=== PATIENT | female | born 1945 | race Caucasian/White ===

== ENCOUNTER → 2017-06-19 | Outpatient (CLI) | payer OTHER ==
[~2017-06-19] MED LIST: ADVIN25/60 INH; ASCO100061 PO; ATV/1 PO; CALC600T14 PO; CYAN100T6 PO; FISHOIL PO; MONT1TAB5 PO; MULTTAB58 PO; OMEP40CA41 PO; OXYC1TAB3 PO; SERT100T PO; TIOTCAP INH; TRAZ50TA35 PO; WLLSR/150 PO; ZCRT/40 PO
== END | disposition home or self-care (01) ==
LOC: C.PATHSPEC 14:16
PROVIDERS: ATTEND Dentist Oral and Maxillofacial Surgery
DX: M86.9 Osteomyelitis, unspecified (principal); M87.9 Osteonecrosis, unspecified

== ENCOUNTER 2018-11-28 14:50 | Inpatient (IN) ==
[2018-11-28] MEDS ORDERED: ALBUT/IPRATROP 3MG/0.5MG NEB 3 ML VIAL NEB STA ×3 (16:15→17:58)
[2018-11-28] MEDS ORDERED: methylPREDNISolone 125 MG/2 ML VIAL IV STA (16:15)
[2018-11-28] MEDS: SODIUM CHLORIDE 0.9% 500 ML IV SCH ×2 (16:33→20:34)
[2018-11-28 16:36] LABS: Base Excess VBG 5.4 mEq/L; HCO3 VBG 33 mmol/L; PCO2 VBG 60 mmHg (38-50); PO2 VBG 24 mmHg; pH VBG 7.35 (7.36-7.41)
[2018-11-28 16:38] LABS: Oxygen Saturation VBG < 60.0 %
[2018-11-28 16:41] LABS: Basophils # (auto) 0.02 K/uL (0-0.2); Basophils % (auto) 0.2 %; Eosinophils # (auto) 0.01 K/uL (0-0.5); Eosinophils % (auto) 0.1 %; Hematocrit (blood only) 37.2 % (37-47); Hemoglobin 12.4 g/dL (12.0-16.0); Immature Granulocytes # (auto) 0.01 K/uL (0.00-0.02); Immature Granulocytes % (auto) 0.1 %; Lymphocytes # (auto) 1.31 K/uL (1.2-3.4); Mean Corpuscular Hgb Conc 33.3 g/dL (32-36); Mean Corpuscular Volume 95.4 fL (80-100); Mean Platelet Volume 8.4 fL (7.4-10.4); Monocytes # (auto) 0.55 K/uL (0.11-0.59); Monocytes % (auto) 6.3 %; Neutrophils # (auto) 6.81 K/uL (1.4-6.5); Neutrophils % (auto) 78.3 %; Platelet Count 192 K/uL (130-400); RDW Coefficient of Variation 12.7 % (11.5-14.5); White Blood Count 8.71 K/uL (4.8-10.8)
--- NOTE | 2018-11-28 16:42 | XRay Report ---
XR chest 1V portable CLINICAL HISTORY: 73 years-old Female presenting with sob. TECHNIQUE: Portable upright AP view of the chest was obtained. COMPARISON: 01/28/[address] from 10/16/2012. FINDINGS: Atherosclerosis of the aortic arch. Cardiac silhouette normal in size. Lungs are hyperinflated. Heter ogeneity of lung parenchyma. Nodularity at the right lung base more prominent than on prior exam. No large effusion or pneumothorax. Degenerative changes of the thoracic spine. IMPRESSION: 1. Findings suggest emphysema. Scarring suggested at the right lung base. No other focal infiltrate to suggest pneumonia. Electronically signed by: Lazaro Mendieta M.D. 11/28/2018 4:40 PM
[2018-11-28 16:54] LABS: Partial Thromboplastin Ratio 0.9; Partial Thromboplastin Time 24.7 Seconds (21.0-31.0); Prothrombin Time 10.5 Seconds (9.0-12.0)
[2018-11-28 16:56] LABS: D Dimer 610 ug/L FEU (0-500)
[2018-11-28 16:57] LABS: BUN Creatinine Ratio 12.8 (10-20); Blood Urea Nitrogen 10 mg/dl (7-18); Calcium 8.8 mg/dl (8.5-10.1); Carbon Dioxide 31 mmol/L (21-32); Chloride 101 mmol/L (98-107); Creatinine Clr Calc Pharmacy 49.1 ml/min; Est GFR (African American) 88.8; Est GFR (Non-African American) 76.6; Glucose 105 mg/dl (70-99); Sodium 138 mmol/L (136-145)
[2018-11-28 17:01] LABS: NT Pro B Type Natriuretic Pept 91 pg/ml (0-900); Troponin I < 0.015 ng/ml (0-0.045)
[2018-11-28 17:09] LABS: Influenza A virus by PCR Neg for Influ A (Neg); Influenza B virus by PCR Neg for Influ B (Neg)
[2018-11-28] MEDS ORDERED: OPTIRAY 320 125ml IV PRN (17:15)
--- NOTE | 2018-11-28 17:32 | CT Scan Report ---
CT angio chest PE protocol CLINICAL HISTORY: 73 years-old Female presenting with shortness of breath and cough. TECHNIQUE: Multidetector CT angiography of the chest was performed after administration of intravenou s contrast. 3-D volumetric and/or maximum intensity projection (MIP) images were subsequently reconst ructed for review. IV contrast: 96 mL of Optiray 320. One or more dose lowering techniques were used consistent with the principles of ALARA (as low as reasonably achievable), including automatic exposu re control, mA or kV adjustment to individual patient size, and/or use of iterative reconstruction. COMPARISON: 10/16/2012. CT DOSE (mGy.cm): The estimated cumulative dose is 183.43 mGy.cm. FINDINGS: Gang Supervisor topogram: Hyperinflation. Pulmonary vasculature: The study is adequate for assessment of the pulmonary vascular tree. No filling defect within the pul monary arteries to suggest embolus. Main pulmonary artery is not enlarged. No flattening of the inter ventricular septum. No intracardiac filling defect. No reflux of contrast into the hepatic veins. Remaining chest: Soft tissues: Normal thyroid and thoracic inlet. Small bilateral hilar lymph nodes, likely reactive. The esophagus is dilated with gas. Atherosclerosis of the aorta. Mild stenosis of the origin of the m ajor branch vessels suggested, especially the left common carotid artery. Normal heart size. Coronary artery calcification. No pericardial or pleural effusion. Upper abdomen normal. Lungs and airways: No pneumothorax. Diffuse bronchial wall thickening with subsegmental bronchial yusef ris primarily in the lower lobes. Upper lobe predominant moderate centrilobular emphysema. Bandlike o pacities in the lungs with associated architectural distortion likely scarring. Respiratory motion ar tifact mildly degrades evaluation of the lung parenchyma. Pulmonary arteries are not significantly en larged relative to adjacent bronchi. No interlobular septal thickening. Solid 7 mm nodule at the supe rior segment of the right lower lobe (series 4 image 183), new since 2012. Tree-in-bud opacities note d in the dependent portions of the right lower lobe and to a lesser extent in the left lower lobe lik silver on an inflammatory or infectious basis. Solid 4 mm left apical nodule (series 4 image 231). Musculoskeletal: Degenerative changes of the spine. Compression deformity of T12 new since 2012. Scle rosis of this vertebral body and the inferior endplate deformity suggests chronicity. IMPRESSION: 1. Multiple solid pulmonary nodules measuring up to 7 mm. Follow-up per Fleischner Society 2017 mara mmendations below. 2. Emphysema. 3. Superimposed tree-in-bud opacities primarily in the lower lobes, which may be on an infectious or inflammatory basis. 4. Compression fracture of T12 new since 2012. Correlate with point tenderness. This is likely chron ic. Summary of Fleischner Society 2017 Recommendations (H Rosa, et al. Guidelines for management of i ncidental pulmonary nodules detected on CT images: From the Fleischner Society 2017. Radiology 2017; 284: 228-243.) SOLID NODULES Single nodule; size < 6 mm * Low risk patients: No routine follow-up * High risk patients: Optional CT at 12 months Single nodule; size 6-8 mm * Low risk patients: CT at 6-12 months, then consider CT at 18-24 months * High risk patients: CT at 6-12 months, then at 18-24 months Single nodule; size > 8 mm * Either low or high risk patients: Considered CT at 3 months, PET/CT, or tissue sampling Multiple nodules; size < 6 mm * Low risk patients: No routine follow up * High risk patients: Optional CT at 12 months Multiple nodules; size 6-8 mm * Low risk patients: CT at 3-6 months, then consider CT at 18-24 months * High risk patients: CT at 3-6 months, then at 18-24 months Multiple nodules; size > 8 mm * Low risk patients: CT at 3-6 months, then consider at 18-24 months * High risk patients: CT at 3-6 months, then at 18-24 months SUBSOLID NODULES Single ground-glass nodule * Nodule size < 6 mm: No routine follow-up * Nodule size > or = 6 mm: CT at 6-12 months to confirm persistence, then CT every 2 years until 5 y ears Single part-solid nodule * Nodule size < 6 mm: No routine follow-up * Nodules size > or = 6 mm: CT at 3-6 months to confirm persistence. If unchanged and solid componen t remains < 6 mm, annual CT should be performed for 5 years Multiple nodules * Nodule size < 6 mm: CT at 3-6 months. If stable, consider CT at 2 and 4 years. * Nodules size > or = 6 mm: CT at 3-6 months. Subsequent management based on the most suspicious nod ule(s) NOTE: 1) These guidelines apply to incidental nodules. These guidelines do NOT apply to patients younger th an 35 years, immunocompromised patients, or patients with cancer. 2) Risk categories: * Low risk patients: Minimal or absent history of smoking and/or other known risk factors * High risk patients: History of smoking, exposure to other carcinogens, emphysema, fibrosis, upper lobe location, family history of lung cancer, etc. 3) If a nodule up to 8 mm is partly solid or is ground glass, further follow-up is required after 24 months to exclude possible slow growing adenocarcinoma. Electronically signed by: Lazaro Mendieta M.D. 11/28/2018 5:31 PM
[2018-11-28] MEDS ORDERED: AZITHROMYCIN 250 MG TAB PO ONE (18:06)
--- NOTE | 2018-11-28 18:48 | History & Physical Report ---
Date of Service November 28, 2018 Assessment & Plan (1) Pneumonia: Poss 2/2 friend who was ill vs recent trip to [place]. Sputum culture requested. (2) COPD exacerbation: IV solumedrol, scheduled nebulizer treatments, Levaquin. Cont oxygen sup plementation for goal saturation 88-92%. Continuous pulse ox for at least 24 hours ordered. (3) Hypoxia: Uses 2 L at night at baseline. Currently requiring 3 L round the clock for the past 3 days. Pulse ox at bedside for first 24 hours. Should not be 100% saturation--goal is 88-92% (4) Smoker: Per recent pulmonary note patient has not been smoking. Continue to encourage to stay quit. (5) Depression: Stable, continue home medications. (6) Chronic constipation: Continue home medications. (7) DVT prophylaxis: Lovenox Full code Disposition-continue telemetry monitoring Qian Lazar DO [facility] Hospitalist History of Present Illness Primary Care Provider: Kenzie Feliciano MD Patient is a 73-year-old female with known history of COPD on nocturnal oxygen who presents with 4 days of cough and worsening shortness of breath. She reports going to [place] for 5 weeks and recently drove home within the last week with her friend who became ill with a febrile respiratory illness at the end of the trip. Within the next couple of days the patient developed the similar symptoms. She reports a cough productive of greenish sputum, 1 day of fever and sweating which has passed. Some sinus pressure and ear pressure with generalized weakness which also had past. She does report wheezing. She states that she was feeling better but then had a exposure outside in the cold while trying to lift a friend from the snow who had fallen. She takes azithromycin 3 times a day for COPD. She uses duo nebs at home 1-2 times daily, she is also on Advair 50/500 twice daily, Singulair 10, as needed Mucinex D. She is seen at pulmonology at [facility]. She reports multiple respiratory infections over this last winter and had several courses of steroids. She currently has no conversational dyspnea on 3 L nasal cannula. She is no acute respiratory distress at this time. Allergies Allergy/AdvReac Type Severity Reaction Status Date / Time No Known Allergies Allergy Unverified 11/28/18 20:15 Home Medications Home Medications Medication Instructions Recorded Confirmed Type Multiple Vitamin, Womens 1 tab PO DAILY 11/28/18 11/28/18 History albuterol sulfate [Ventolin HFA] 2 puff INHALATION Q4H PRN 11/28/18 11/28/18 History ascorbic acid (vitamin C) 1,000 mg PO DAILY 11/28/18 11/28/18 History aspirin [Aspir-81] 81 mg PO Q2D 11/28/18 11/28/18 History azithromycin 250 mg PO UD 11/28/18 11/28/18 History bupropion HCl 100 mg PO QAM 11/28/18 11/28/18 History buspirone 5 mg PO DAILY 11/28/18 11/28/18 History calcium carbonate [Calcium 500] 500 mg PO TID 11/28/18 11/28/18 History cetirizine 10 mg PO DAILY PRN 11/28/18 11/28/18 History cyanocobalamin (vitamin B-12) 1,000 mcg PO DAILY 11/28/18 11/28/18 History fluticasone 2 spry INTRANASAL DAILY 11/28/18 11/28/18 History fluticasone-salmeterol [Advair 1 inh INHALATION BID 11/28/18 11/28/18 History Diskus] ipratropium-albuterol 3 ml INHALATION QID PRN 11/28/18 11/28/18 History linaclotide [Linzess] 72 mg PO QAM 11/28/18 11/28/18 History montelukast 10 mg PO DAILY 11/28/18 11/28/18 History pantoprazole 40 mg PO QAM 11/28/18 11/28/18 History polyethylene glycol 3350 [Miralax] 17 g PO DAILY 11/28/18 11/28/18 History rosuvastatin 20 mg PO DAILY 11/28/18 11/28/18 History sennosides [senna] 17.2 mg PO BID 11/28/18 11/28/18 History tamsulosin 0.4 mg PO QPM 11/28/18 11/28/18 History tiotropium bromide [Spiriva with 1 cap INHALATION DAILY 11/28/18 11/28/18 History HandiHaler] trazodone 25 - 50 mg PO HS PRN 11/28/18 11/28/18 History venlafaxine 150 mg PO DAILY 11/28/18 11/28/18 History Past Med/Surg History Medical History Asthma COPD (chronic obstructive pulmonary disease) KURTIS (generalized anxiety disorder) H/O compression fracture of spine 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, jaw Osteoporosis Recurrent major depression Slow transit constipation Smoker Family History Other Family history non-contributory Social History Preferred Language: [place] Communication Ability: Effective Music Journalist Required: No Beliefs That Will Affect Care: None Current Living Situation: Other Other Information That Helps Us Care for You: No Feels Safe at Home: Yes and No Safety Concerns: Feels Safe At This Time Smoking Status: Current some day smoker Hx Alcohol Use: Yes Hx Substance Use: No Review of Systems At least ten systems were reviewed and negative except as indicated in HPI a robert. Physical Exam Vital Signs (Past 24 Hours): Last Vital Signs Temp 37.4 C 11/28/18 15:11 Pulse 105 H 11/28/18 18:10 Resp 20 11/28/18 18:10 BP 187/99 H 11/28/18 17:56 Pulse Ox 96 11/28/18 18:10 CONSTITUTIONAL: WNWD, vitals as above, generally well-appearing EYES: PERRL, normal conjuctivae, no scleral icterus ENT: oropharynx clear, no maxillary or ethmoid sinus tenderness, tongue clear NECK: trachea midline, no lymphadenopathy RESPIRATORY: significant wheezing throughout all lung heredia. Coarse rhonchi superimposed diffusely CARDIOVASCULAR: regular rate and rhythm, S1 and 2 heard without murmurs, gallops or rubs, no JVD, no peripheral edema GASTROINTESTINAL: normal bowel sounds, soft, nontender, nondistended MUSCULOSKELETAL: strength 5/5 throughout, head is normocephalic and atraumatic SKIN: warm and dry NEUROLOGIC: CN 2-12 grossly intact, normal cognition, normal speech PSYCHIATRIC: alert cooperative and oriented to person, place and time. Results & Data Laboratory Results Short CBC 11/28/18 Range/Units 16:28 WBC 8.71 (4.8-10.8) K/uL Hgb 12.4 (12.0-16.0) g/dL Hct 37.2 (37-47) % Plt Count 192 (130-400) K/uL BMP 11/28/18 16:28 Sodium 138 Potassium 4.0 Chloride 101 Carbon Dioxide 31 BUN 10 Creatinine 0.77 Glucose 105 H Calcium 8.8 Cardiac Enzymes 11/28/18 Range/Units 16:28 Troponin I < 0.015 (0-0.045) ng/ml Medications Administered Current Inpatient Medications Acetaminophen (Tylenol) 650 mg PO Q4H PRN PRN Reason: Pain or Fever Stop: 12/28/18 19:41 Sodium Chloride (Nss) 500 mls @ 125 mls/hr IV .Q4H MARIMAR Stop: 12/28/18 16:14 Last Admin: 11/28/18 16:33 Dose: 125 mls/hr Documented by: Ioversol (Optiray 320 125ml) 117 ml IV ONCE PRN PRN Reason: Interaction Checking Stop: 12/02/18 17:14 Last Admin: 11/28/18 17:15 Dose: 117 ml Documented by: Polyethylene Glycol (Miralax Powder Packet) 17 gm PO DAILY PRN PRN Reason: Constipation Stop: 12/28/18 19:41 Code Status & VTE Plan Code Status Full Code VTE Prophylaxis Plan VTE Prophylaxis will be ordered: Yes Critical Care Time Critical Care Time: No
[2018-11-28] MEDS ORDERED: ACETAMINOPHEN 325 MG TAB PO PRN (19:42)
[2018-11-28] MEDS ORDERED: POLYETHYLENE (MIRALAX) 17 GM PACK PO PRN (19:42)
[2018-11-28] MEDS ORDERED: CALCIUM CARBONATE 1250MG TAB PO SCH (21:00)
[2018-11-28] MEDS: LEVOFLOXACIN/D5W 750 MG/150 ML BAG IV SCH (22:07)
[2018-11-28] MEDS: methylPREDNISolone 40 MG in SYRINGE 0 ML IV SCH (22:11)
[2018-11-28] MEDS: SENNA 8.6 MG TAB PO SCH (22:12)
[2018-11-28] MEDS: TAMSULOSIN HCL 0.4 MG CAP PO SCH (22:12)
[2018-11-28] MEDS: CALCIUM CARBONATE 1250MG TAB PO SCH (22:13)
[2018-11-28] MEDS: ASPIRIN 81 MG ECTAB PO SCH (22:13)
--- NOTE | 2018-11-28 22:39 | Emergency Department Note ---
Entered by Agusto Zhu acting as a scribe for Dmitriy Paulson History of Present Illness General Chief complaint: Shortness of Breath/Dyspnea Stated complaint: SOB, NEEDS O2 Time Seen by Provider: 11/28/18 16:05 Source: patient History of Present Illness Onset (ago): day(s) 3 Location: chest (lungs) Pain Consistency: + other (persistent) Quality: + other (shortness of breath) Associated symptoms: + chest pain, + cough and + loss of appetite; no nausea/vomiting The patient is a 73 year old female with a history of COPD and asthma and COPD who presents to the Emergency Room with complaints of persistent shortness of breath worsening in the past three days. The patient reports a cough that is productive of mucous. She notes occasionally seeing a small amount of pink that is not mixed with the mucous. She reports occasional chest pain and loss of appetite. She denies nausea, vomiting, diarrhea, or blood in her stool. She states that she chronically wears supplemental oxygen at night, and in the past three days she has also been wearing it in the daytime due to her increasing shortness of breath. She notes that she has been taking her inhalers. She reports that she recently drove home from [place] with a friend, noting that her friend had developed fevers and a cough. She denies a history of intubation or ICU visits for her shortness of breath. She also denies a history of kidney problems. She notes that her PCP is Dr. Braden Hernandez. Home Medications Home Medications Medication Instructions Recorded Confirmed Type Multiple Vitamin, Womens 1 tab PO DAILY 11/28/18 11/28/18 History albuterol sulfate [Ventolin HFA] 2 puff INHALATION Q4H PRN 11/28/18 11/28/18 History ascorbic acid (vitamin C) 1,000 mg PO DAILY 11/28/18 11/28/18 History aspirin [Aspir-81] 81 mg PO Q2D 11/28/18 11/28/18 History azithromycin 250 mg PO UD 11/28/18 11/28/18 History bupropion HCl 100 mg PO QAM 11/28/18 11/28/18 History buspirone 5 mg PO DAILY 11/28/18 11/28/18 History calcium carbonate [Calcium 500] 500 mg PO TID 11/28/18 11/28/18 History cetirizine 10 mg PO DAILY PRN 11/28/18 11/28/18 History cyanocobalamin (vitamin B-12) 1,000 mcg PO DAILY 11/28/18 11/28/18 History fluticasone 2 spry INTRANASAL DAILY 11/28/18 11/28/18 History fluticasone-salmeterol [Advair 1 inh INHALATION BID 11/28/18 11/28/18 History Diskus] ipratropium-albuterol 3 ml INHALATION QID PRN 11/28/18 11/28/18 History linaclotide [Linzess] 72 mg PO QAM 11/28/18 11/28/18 History montelukast 10 mg PO DAILY 11/28/18 11/28/18 History pantoprazole 40 mg PO QAM 11/28/18 11/28/18 History polyethylene glycol 3350 [Miralax] 17 g PO DAILY 11/28/18 11/28/18 History rosuvastatin 20 mg PO DAILY 11/28/18 11/28/18 History sennosides [senna] 17.2 mg PO BID 11/28/18 11/28/18 History tamsulosin 0.4 mg PO QPM 11/28/18 11/28/18 History tiotropium bromide [Spiriva with 1 cap INHALATION DAILY 11/28/18 11/28/18 Histo ry HandiHaler] trazodone 25 - 50 mg PO HS PRN 11/28/18 11/28/18 History venlafaxine 150 mg PO DAILY 11/28/18 11/28/18 History Allergies Allergy/AdvReac Type Severity Reaction Status Date / Time No Known Allergies Allergy Unverified 11/28/18 20:15 Past Med/Surg History Medical History Asthma COPD (chronic obstructive pulmonary disease) KURTIS (generalized anxiety disorder) H/O compression fracture of spine 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 and A total of 10 systems reviewed and were otherwise negative Physical Exam Vital Signs Vital Signs - 24 hr 11/28/18 15:11 11/28/18 15:17 11/28/18 16:12 Temperature 37.4 C Temperature Source Oral Sepsis Recent Fever Within 48 Hours No Sepsis New/Unexplained Change in Mental Status No Sepsis Action Taken by Nursing No Action Required Pulse Rate 125 H 105 H Pulse Rate [Apical] Pulse Rate from SpO2 Sensor 105 H Respiratory Rate 20 17 Respiratory Effort / Characteristics Non-Labored Spontaneous Respiratory Depth Normal Respiratory Pattern Blood Pressure 160/69 H Blood Pressure [Left Arm] Blood Pressure Mean 99 Blood Pressure Mean [Left Arm] Blood Pressure Position Sitting Blood Pressure Position [Left Arm] Pulse Oximetry 92 98 Oxygen Delivery Method Room Air Nasal Cannula Oxygen Flow Rate 2 11/28/18 16:18 11/28/18 16:20 11/28/18 16:30 Temperature Temperature Source Sepsis Recent Fever Within 48 Hours Sepsis New/Unexplained Change in Mental Status Sepsis Action Taken by Nursing Pulse Rate 103 H 136 H 105 H Pulse Rate [Apical] Pulse Rate from SpO2 Sensor 102 H 110 H Respiratory Rate 19 20 29 H Respiratory Effort / Characteristics Respiratory Depth Respiratory Pattern Blood Pressure Blood Pressure [Left Arm] 160/69 H Blood Pressure Mean Blood Pressure Mean [Left Arm] 99 Blood Pressure Position Blood Pressure Position [Left Arm] Left Lateral Pulse Oximetry 99 98 Oxygen Delivery Method Oxygen Flow Rate 11/28/18 16:40 11/28/18 16:50 11/28/18 17:00 Temperature Temperature Source Sepsis Recent Fever Within 48 Hours Sepsis New/Unexplained Change in Mental Status Sepsis Action Taken by Nursing Pulse Rate 103 H 100 H 100 H Pulse Rate [Apical] Pulse Rate from SpO2 Sensor Respiratory Rate 24 18 22 Respiratory Effort / Characteristics Respiratory Depth Respiratory Pattern Blood Pressure Blood Pressure [Left Arm] Blood Pressure Mean Blood Pressure Mean [Left Arm] Blood Pressure Position Blood Pressure Position [Left Arm] Pulse Oximetry Oxygen Delivery Method Oxygen Flow Rate 11/28/18 17:43 11/28/18 17:50 11/28/18 17:56 Temperature Temperature Source Sepsis Recent Fever Within 48 Hours Sepsis New/Unexplained Change in Mental Status Sepsis Action Taken by Nursing Pulse Rate 114 H Pulse Rate [Apical] Pulse Rate from SpO2 Sensor 105 H 105 H 113 H Respiratory Rate 22 Respiratory Effort / Characteristics Respiratory Depth Respiratory Pattern Blood Pressure 187/99 H Blood Pressure [Left Arm] Blood Pressure Mean 128 Blood Pressure Mean [Left Arm] Blood Pressure Position Blood Pressure Position [Left Arm] Pulse Oximetry 94 100 96 Oxygen Delivery Method Oxygen Flow Rate 11/28/18 17:58 11/28/18 17:59 11/28/18 18:00 Temperature Temperature Source Sepsis Recent Fever Within 48 Hours Sepsis New/Unexplained Change in Mental Status Sepsis Action Taken by Nursing Pulse Rate 107 H Pulse Rate [Apical] Pulse Rate from SpO2 Sensor 107 H Respiratory Rate 26 H Respiratory Effort / Characteristics Respiratory Depth Respiratory Pattern Blood Pressure Blood Pressure [Left Arm] Blood Pressure Mean Blood Pressure Mean [Left Arm] Blood Pressure Position Blood Pressure Position [Left Arm] Pulse Oximetry 78 L 92 97 Oxygen Delivery Method Room Air Nasal Cannula Oxygen Flow Rate 3 11/28/18 18:10 11/28/18 18:20 11/28/18 18:30 Temperature Temperature Source Sepsis Recent Fever Within 48 Hours Sepsis New/Unexplained Change in Mental Status Sepsis Action Taken by Nursing Pulse Rate 105 H 105 H 106 H Pulse Rate [Apical] Pulse Rate from SpO2 Sensor 105 H 105 H 106 H Respiratory Rate 20 22 21 Respiratory Effort / Characteristics Respiratory Depth Respiratory Pattern Blood Pressure Blood Pressure [Left Arm] Blood Pressure Mean Blood Pressure Mean [Left Arm] Blood Pressure Position Blood Pressure Position [Left Arm] Pulse Oximetry 96 100 98 Oxygen Delivery Method Oxygen Flow Rate 11/28/18 18:40 11/28/18 18:50 11/28/18 19:00 Temperature Temperature Source Sepsis Recent Fever Within 48 Hours Sepsis New/Unexplained Change in Mental Status Sepsis Action Taken by Nursing Pulse Rate 105 H 104 H 104 H Pulse Rate [Apical] Pulse Rate from SpO2 Sensor 105 H 104 H 105 H Respiratory Rate 26 H 17 20 Respiratory Effort / Characteristics Respiratory Depth Respiratory Pattern Blood Pressure Blood Pressure [Left Arm] Blood Pressure Mean Blood Pressure Mean [Left Arm] Blood Pressure Position Blood Pressure Position [Left Arm] Pulse Oximetry 97 97 96 Oxygen Delivery Method Oxygen Flow Rate 11/28/18 19:30 11/28/18 20:12 11/28/18 20:37 Temperature 37.5 C Temperature Source Oral Sepsis Recent Fever Within 48 Hours Sepsis New/Unexplained Change in Mental Status Sepsis Action Taken by Nursing Pulse Rate 113 H Pulse Rate [Apical] 113 H Pulse Rate from SpO2 Sensor Respiratory Rate 24 Respiratory Effort / Characteristics Non-Labored Spontaneous SOB on Exertion Respiratory Depth Normal Respiratory Pattern Regular Regular Blood Pressure Blood Pressure [Left Arm] 147/63 H Blood Pressure Mean Blood Pressure Mean [Left Arm] 91 Blood Pressure Position Blood Pressure Position [Left Arm] Pulse Oximetry 94 Oxygen Delivery Method Nasal Cannula Nasal Cannula Oxygen Flow Rate 3 3 GENERAL: She is oriented to person, place, and time. She appears well-developed and well-nourished. She does not appear distressed. HENT: Exam performed. Head: Normocephalic and atraumatic. Right Ear: External ear normal. No mastoid tenderness. Left Ear: External ear normal. No mastoid tenderness. Mouth/Throat: The oropharynx is clear. Mucous membranes are dry. No trismus in the jaw. No dental abscesses or uvula swelling. No oropharyngeal exudate or tonsillar abscesses. EYES: Conjunctivae and EOM are normal. Pupils are equal, round, and reactive to light. Right eye exhibits no discharge. Left eye exhibits no discharge. No scleral icterus. NECK: Normal range of motion. Neck supple. No JVD present. No spinous process tenderness present. No carotid bruit present. No rigidity. No tracheal deviation and normal range of motion present. No Brudzinski's sign and no Kernig's sign noted. CV: Tachycardic rate, regular rhythm, normal heart sounds and intact distal pulses. There is no peripheral edema. Palpable radial pulses bue. PULM/CHEST: Effort normal. No respiratory distress. No stridor. She has diffuse expiratory wheezes bilaterally. She has no rales. Chest Wall: She exhibits no tenderness. ABD: The abdomen is soft. Bowel sounds are normal. She has no distension. No mass is present. There is no tenderness. There is no rebound, no guarding, no Salinas's sign and no tenderness at McBurney's point. Rovsig negative. MUSC/SKEL: Normal range of motion. There is no peripheral edema, tenderness or deformity. LYMPH: No cervical adenopathy. NEURO: She is alert and oriented to person, place, and time. She has normal strength. No cranial nerve deficit or sensory deficit. Coordination and gait normal. GCS eye subscore is 4. GCS verbal subscore is 5. GCS motor subscore is 6. cerbellar tests wnl. SKIN: Skin is warm and dry. She is not diaphoretic. PSYCH: She has a normal mood and affect. Her behavior is normal. Judgment and thought content normal. Course 1606: Past medical records reviewed. The patient was evaluated in room C9, and a complete history and physical examination were performed. 1809: The patient got up to use the restroom and became extremely winded with wheezing. Despite repeated Duoneb treatments, she continues to wheeze. Labs show venous pH of 7.35, pCO2 of 60, elevated D-dimer, and CTA of the chest negative for PE. She states that she frequently gets infections that require antibiotics. She will be hospitalized for obstructive lung disease exacerbation and will be treated with serial duo nebs and azithromycin. 1811: I consulted Birgit Ruiz PA-C: [facility] Hospitalist with Dr. Lazar. The patient will be reevaluated for hospitalization. Consultations Consultation #1: I consulted Birgit Ruiz PA-C: [facility] Hospitalist with Dr. Lazar. The patient will be reevaluated for hospitalization. Time: 18:12 Administered Medications Aspirin (Ecotrin Ectab) 81 mg PO Q2D@2100 [facility] Stop: 12/28/18 20:59 Last Admin: 11/28/18 22:13 Dose: 81 mg Documented by: [id number] Calcium Carbonate (Os-Giuseppe 500) 1,250 mg PO TID [facility] Stop: 12/28/18 20:59 Last Admin: 11/28/18 22:13 Dose: 1,250 mg Documented by: [id number] Methylprednisolone 40 mg/ (Syringe) 0.64 mls @ 1.5 mls/min IV Q8H [facility] Stop: 12/28/18 21:59 Last Admin: 11/28/18 22:11 Dose: 1.5 mls/min Documented by: [id number] Levofloxacin/Dextrose (Levaquin/D5w) 750 mg in 150 mls @ 100 mls/hr IV Q24H [facility] Stop: 12/05/18 21:59 Last Admin: 11/28/18 22:07 Dose: 100 mls/hr Documented by: [id number] Ioversol (Optiray 320 125ml) 117 ml IV ONCE PRN PRN Reason: Interaction Checking Stop: 12/02/18 17:14 Last Admin: 11/28/18 17:15 Dose: 117 ml Documented by: [id number] Sennosides (Senokot) 17.2 mg PO BID [facility] Stop: 12/28/18 20:59 Last Admin: 11/28/18 22:12 Dose: 17.2 mg Documented by: [id number] Tamsulosin HCl (Flomax) 0.4 mg PO QPM [facility] Stop: 12/28/18 20:59 Last Admin: 11/28/18 22:12 Dose: 0.4 mg Documented by: [id number] Discontinued Medications Albuterol (Duoneb) 3 ml NEB NOW STA Stop: 11/28/18 16:16 Last Admin: 11/28/18 16:25 Dose: 3 ml Documented by: [id number] Albuterol (Duoneb) 3 ml NEB NOW STA Stop: 11/28/18 16:59 Last Admin: 11/28/18 17:03 Dose: 3 ml Documented by: [id number] Albuterol (Duoneb) 3 ml NEB NOW STA Stop: 11/28/18 17:59 Last Admin: 11/28/18 18:17 Dose: 3 ml Documented by: [id number] Azithromycin (Zithromax) 500 mg PO NOW ONE Stop: 11/28/18 18:07 Last Admin: 11/28/18 18:17 Dose: 500 mg Documented by: [id number] Calcium Carbonate (Os-Giuseppe 500) 500 mg PO TID [facility] Stop: 12/28/18 20:59 Last Admin: 11/28/18 22:02 Dose: Not Given Documented by: [id number] Sodium Chloride (Nss) 500 mls @ 125 mls/hr IV .Q4H [facility] Stop: 12/28/18 16:14 Last Admin: 11/28/18 20:34 Dose: Not Given Documented by: [id number] Infusion: 11/28/18 20:33 Dose: 0 mls/hr Documented by: [id number] Admin: 11/28/18 16:33 Dose: 125 mls/hr Documented by: [id number] Methylprednisolone (Solumedrol) 125 mg IV NOW STA Stop: 11/28/18 16:16 Last Admin: 11/28/18 16:33 Dose: 125 mg Documented by: [id number] Medical Decision Making Medical Records Attestation: I reviewed the patient's medical records. Home Medications Current Medication List: was personally reviewed by me Laboratory Data Attestation: I reviewed the patient's lab results. Result diagrams: 11/28/18 16:28 11/28/18 16:28 Lab Results 11/28/18 11/28/18 11/28/18 Range/Units 16:22 16:28 16:28 WBC 8.71 (4.8-10.8) K/uL RBC 3.90 L (4.2-5.4) M/uL Hgb 12.4 (12.0-16.0) g/dL Hct 37.2 (37-47) % MCV 95.4 (80-100) fL MCH 31.8 (25-34) pg MCHC 33.3 (32-36) g/dL RDW Std Deviation 44.0 (36.4-46.3) fL RDW Coeff of Yamini 12.7 (11.5-14.5) % Plt Count 192 (130-400) K/uL MPV 8.4 (7.4-10.4) fL Immature Gran % (Auto) 0.1 % Neut % (Auto) 78.3 % Lymph % (Auto) 15.0 % Delta % (Auto) 6.3 % Eos % (Auto) 0.1 % Baso % (Auto) 0.2 % Immature Gran # (Auto) 0.01 (0.00-0.02) K/uL Neut # (Auto) 6.81 H (1.4-6.5) K/uL Lymph # (Auto) 1.31 (1.2-3.4) K/uL Delta # (Auto) 0.55 (0.11-0.59) K/uL Eos # (Auto) 0.01 (0-0.5) K/uL Baso # (Auto) 0.02 (0-0.2) K/uL PT 10.5 (9.0-12.0) Seconds INR 1.0 (0.9-1.1) APTT 24.7 (21.0-31.0) Seconds PTT Ratio 0.9 D-Dimer 610 H* (0-500) ug/L FEU VBG pH (7.36-7.41) VBG pCO2 (38-50) mmHg VBG pO2 mmHg VBG HCO3 mmol/L VBG O2 Saturation % VBG Base Excess mEq/L Barometric Pressure mm/Hg Sodium (136-145) mmol/L Potassium (3.5-5.1) mmol/L Chloride (98-107) mmol/L Carbon Dioxide (21-32) mmol/L Anion Gap (3-11) BUN (7-18) mg/dl Creatinine (0.6-1.2) mg/dl Est Cr Clr Drug Dosing ml/min Est GFR ( Amer) Est GFR (Non-Af Amer) BUN/Creatinine Ratio (10-20) Glucose (70-99) mg/dl Calcium (8.5-10.1) mg/dl Troponin I (0-0.045) ng/ml NT-Pro-B Natriuret Pep (0-900) pg/ml Influenza Type A (PCR) Neg for Influ A (Neg) Influenza Type B (PCR) Neg for Influ B (Neg) 11/28/18 11/28/18 Range/Units 16:28 16:28 WBC (4.8-10.8) K/uL RBC (4.2-5.4) M/uL Hgb (12.0-16.0) g/dL Hct (37-47) % MCV (80-100) fL MCH (25-34) pg MCHC (32-36) g/dL RDW Std Deviation (36.4-46.3) fL RDW Coeff of Yamini (11.5-14.5) % Plt Count (130-400) K/uL MPV (7.4-10.4) fL Immature Gran % (Auto) % Neut % (Auto) % Lymph % (Auto) % Delta % (Auto) % Eos % (Auto) % Baso % (Auto) % Immature Gran # (Auto) (0.00-0.02) K/uL Neut # (Auto) (1.4-6.5) K/uL Lymph # (Auto) (1.2-3.4) K/uL Delta # (Auto) (0.11-0.59) K/uL Eos # (Auto) (0-0.5) K/uL Baso # (Auto) (0-0.2) K/uL PT (9.0-12.0) Seconds INR (0.9-1.1) APTT (21.0-31.0) Seconds PTT Ratio D-Dimer (0-500) ug/L FEU VBG pH 7.35 L (7.36-7.41) VBG pCO2 60 H (38-50) mmHg VBG pO2 24 mmHg VBG HCO3 33 mmol/L VBG O2 Saturation < 60.0 % VBG Base Excess 5.4 mEq/L Barometric Pressure 735.0 mm/Hg Sodium 138 (136-145) mmol/L Potassium 4.0 (3.5-5.1) mmol/L Chloride 101 (98-107) mmol/L Carbon Dioxide 31 (21-32) mmol/L Anion Gap 6.0 (3-11) BUN 10 (7-18) mg/dl Creatinine 0.77 (0.6-1.2) mg/dl Est Cr Clr Drug Dosing 49.1 ml/min Est GFR ( Amer) 88.8 Est GFR (Non-Af Amer) 76.6 BUN/Creatinine Ratio 12.8 (10-20) Glucose 105 H (70-99) mg/dl Calcium 8.8 (8.5-10.1) mg/dl Troponin I < 0.015 (0-0.045) ng/ml NT-Pro-B Natriuret Pep 91 (0-900) pg/ml Influenza Type A (PCR) (Neg) Influenza Type B (PCR) (Neg) Imaging Data Radiologist's Impression: Radiology results as stated below per my review and the radiologist's interpretation: CT angio chest PE protocol CLINICAL HISTORY: 73 years-old Female presenting with shortness of breath and cough. TECHNIQUE: Multidetector CT angiography of the chest was performed after admini stration of intravenous contrast. 3-D volumetric and/or maximum intensity projection (MIP) images were subsequently reconstructed for review. IV contrast: 96 mL of Optiray 320. One or more dose lowering techniques were used consistent with the principles of ALARA (as low as reasonably achievable), including automatic exposure control, mA or kV adjustment to individual patient size, and/or use of iterative reconstruction. COMPARISON: 10/16/2012. CT DOSE (mGy.cm): The estimated cumulative dose is 183.43 mGy.cm. 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 Pulmonary vasculature: The study is adequate for assessment of the pulmonary vascular tree. No filling defect within the pulmonary arteries to suggest embolus. Main pulmonary artery is not enlarged. No flattening of the interventricular septum. No intracardiac filling defect. No reflux of contrast into the hepatic veins. Remaining chest: Soft tissues: Normal thyroid and thoracic inlet. Small bilateral hilar lymph nodes, likely reactive. The esophagus is dilated with gas. Atherosclerosis of the aorta. Mild stenosis of the origin of the major branch vessels suggested, especially the left common carotid artery. Normal heart size. Coronary artery calcification. No pericardial or pleural effusion. Upper abdomen normal. Lungs and airways: No pneumothorax. Diffuse bronchial wall thickening with subsegmental bronchial debris primarily in the lower lobes. Upper lobe predominant moderate centrilobular emphysema. Bandlike opacities in the lungs with associated architectural distortion likely scarring. Respiratory motion artifact mildly degrades evaluation of the lung parenchyma. Pulmonary arteries are not significantly enlarged relative to adjacent bronchi. No interlobular septal thickening. Solid 7 mm nodule at the superior segment of the right lower lobe (series 4 image 183), new since 2012. Tree-in-bud opacities noted in the dependent portions of the right lower lobe and to a lesser extent in the left lower lobe likely on an inflammatory or infectious basis. Solid 4 mm left apical nodule (series 4 image 231). Musculoskeletal: Degenerative changes of the spine. Compression deformity of T12 new since 2012. Sclerosis of this vertebral body and the inferior endplate deformity suggests chronicity. IMPRESSION: 1. Multiple solid pulmonary nodules measuring up to 7 mm. Follow-up per Fleischner Society 2017 recommendations below. 2. Emphysema. 3. Superimposed tree-in-bud opacities primarily in the lower lobes, which may be on an infectious or inflammatory basis. 4. Compression fracture of T12 new since 2012. Correlate with point tenderness. This is likely chronic. Summary of Fleischner Society 2017 Recommendations (H Rosa, et al. Guidelines for management of incidental pulmonary nodules detected on CT images: From the Fleischner Society 2017. Radiology 2017; 284: 228-243.) SOLID NODULES Single nodule; size < 6 mm * Low risk patients: No routine follow-up * High risk patients: Optional CT at 12 months Single nodule; size 6-8 mm * Low risk patients: CT at 6-12 months, then consider CT at 18-24 months * High risk patients: CT at 6-12 months, then at 18-24 months Single nodule; size > 8 mm * Either low or high risk patients: Considered CT at 3 months, PET/CT, or tissue sampling Multiple nodules; size < 6 mm * Low risk patients: No routine follow up * High risk patients: Optional CT at 12 months Multiple nodules; size 6-8 mm * Low risk patients: CT at 3-6 months, then consider CT at 18-24 months * High risk patients: CT at 3-6 months, then at 18-24 months Multiple nodules; size > 8 mm * Low risk patients: CT at 3-6 months, then consider at 18-24 months * High risk patients: CT at 3-6 months, then at 18-24 months SUBSOLID NODULES Single ground-glass nodule * Nodule size < 6 mm: No routine follow-up * Nodule size > or = 6 mm: CT at 6-12 months to confirm persistence, then CT every 2 years until 5 years Single part-solid nodule * Nodule size < 6 mm: No routine follow-up * Nodules size > or = 6 mm: CT at 3-6 months to confirm persistence. If unchanged and solid component remains < 6 mm, annual CT should be performed for 5 years Multiple nodules * Nodule size < 6 mm: CT at 3-6 months. If stable, consider CT at 2 and 4 years. * Nodules size > or = 6 mm: CT at 3-6 months. Subsequent management based on the most suspicious nodule(s) NOTE: 1) These guidelines apply to incidental nodules. These guidelines do NOT apply to patients younger than 35 years, immunocompromised patients, or patients with cancer. 2) Risk categories: * Low risk patients: Minimal or absent history of smoking and/or other known risk factors * High risk patients: History of smoking, exposure to other carcinogens, emphysema, fibrosis, upper lobe location, family history of lung cancer, etc. 3) If a nodule up to 8 mm is partly solid or is ground glass, further follow-up is required after 24 months to exclude possible slow growing adenocarcinoma. Electronically signed by: Lazaro Mendieta M.D. 11/28/2018 5:31 PM XR chest 1V portable CLINICAL HISTORY: 73 years-old Female presenting with sob. TECHNIQUE: Portable upright AP view of the chest was obtained. COMPARISON: 01/28/[address] from 10/16/2012. FINDINGS: Atherosclerosis of the aortic arch. Cardiac silhouette normal in size. Lungs are hyperinflated. Heterogeneity of lung parenchyma. Nodularity at the right lung base more prominent than on prior exam. No large effusion or pneumothorax. Degenerative changes of the thoracic spine. IMPRESSION: 1. Findings suggest emphysema. Scarring suggested at the right lung base. No other focal infiltrate to suggest pneumonia. Electronically signed by: Lazaro Mendieta M.D. 11/28/2018 4:40 PM ECG Data Attestation: I personally reviewed and interpreted this ECG as follows: Indication: SOB/dyspnea Rate (beats per minute): 104 Rhythm: sinus tachycardia Findings: + other (NE, QRS and QTc intervals are within normal limits); no ST depression and no ST elevation Blood Pressure Blood Pressure Findings: Elevated blood pressure Blood Pressure Disposition: further management by hospitalist MILLA Narrative 1605: Past medical records reviewed. The patient was evaluated in room C9, and a complete history and physical examination were performed. 1809: The patient got up to use the restroom and became extremely winded with wheezing. Despite repeated Duoneb treatments, she continues to wheeze. Labs show venous pH of 7.35, pCO2 of 60, elevated D-dimer, and CTA of the chest negative for PE. She states that she frequently gets infections that require antibiotics. She will be hospitalized for obstructive lung disease exacerbation and will be treated with serial duo nebs and azithromycin. 1811: I consulted Birgit Ruiz PA-C: [facility] Hospitalist with Dr. Lazar. The patient will be reevaluated for hospitalization. Impression & Plan COPD exacerbation, Hypoxia Discharge Plan Visit Data *Final* Discharge Date/Time: 11/28/18 19:23 Chief Complaint: Shortness of Breath/Dyspnea Stated Complaint: SOB, NEEDS O2 ED Provider: Dmitriy Paulson Discharge Problem: COPD exacerbation, Hypoxia Patient Disposition: Admitted As Inpatient Discharge Instructions Interventions: ED Discharge Assessment Last Done: 11/28/18 19:23 The scribe's documentation has been prepared under my direction and personally reviewed by me in its entirety. I confirm that the note above accurately reflects all work, treatment, procedures, and medical decision making performed by me.
[2018-11-29 00:15] LABS: Appearance Urine Clear (Clear); Bilirubin Urine Negative (Negative); Blood Urine Negative (Negative); Color Urine Yellow; Glucose Urine UA 1+ (Negative); Ketones Urine Negative (Negative); Leukocyte Esterase Urine Negative (Negative); Nitrite Urine Negative (Negative); Protein Urine Negative (Negative); Specific Gravity Urine <= 1.005 (1.000-1.030); Urobilinogen Urine Negative (Negative); pH Urine 6.5 (4.5-7.5)
[2018-11-29] MEDS ORDERED: CALCIUM CARBONATE 500 MG CHEWABLE TAB PO STA (02:17)
[2018-11-29] MEDS ORDERED: LORazepam 0.5 MG TAB PO STA (02:18)
[2018-11-29] MEDS: methylPREDNISolone 40 MG in SYRINGE 0 ML IV SCH ×3 (06:16→21:36)
[2018-11-29 07:46] LABS: Hematocrit (blood only) 36.5 % (37-47); Mean Corpuscular Hgb Conc 32.9 g/dL (32-36); Mean Corpuscular Volume 93.8 fL (80-100); Mean Platelet Volume 8.5 fL (7.4-10.4); Platelet Count 202 K/uL (130-400); RDW Coefficient of Variation 12.7 % (11.5-14.5); RDW Standard Deviation 43.1 fL (36.4-46.3); Red Blood Count 3.89 M/uL (4.2-5.4)
[2018-11-29] MEDS: ALBUT/IPRATROP 3MG/0.5MG NEB 3 ML VIAL NEB SCH ×5 (07:49→19:24)
[2018-11-29 08:15] LABS: BUN Creatinine Ratio 16.8 (10-20); Calcium 9.5 mg/dl (8.5-10.1); Est GFR (African American) 103.7; Est GFR (Non-African American) 89.5; Potassium 4.1 mmol/L (3.5-5.1)
[2018-11-29] MEDS ORDERED: PANTOprazole 40 MG TAB PO STA (08:18)
[2018-11-29] MEDS: ASCORBIC ACID 500 MG TAB PO SCH (08:24)
[2018-11-29] MEDS: VENLAFAXINE HCL XR 150 MG CAPXR PO SCH (08:24)
[2018-11-29] MEDS: CETIRIZINE HCL 10 MG TABLET PO PRN ×2 (08:24→16:29)
[2018-11-29] MEDS: CALCIUM CARBONATE 1250MG TAB PO SCH ×3 (08:24→20:17)
[2018-11-29] MEDS: SENNA 8.6 MG TAB PO SCH ×2 (08:24→20:17)
[2018-11-29] MEDS: FLUTICASONE PROPIONATE NA SPR 16 GM BTL SCH ×2 (08:25→20:18)
[2018-11-29] MEDS: ENOXAPARIN INJ 40 MG/0.4 ML SYR SQ SCH (08:26)
[2018-11-29] MEDS: CYANOCOBALAMIN 500 MCG TABLET (VITAMIN B-12) PO SCH (08:26)
[2018-11-29] MEDS ORDERED: ROSUVASTATIN CALCIUM 20 MG TAB PO SCH (09:00)
[2018-11-29] MEDS ORDERED: MONTELUKAST SODIUM 10 MG TABLET PO SCH (09:00)
[2018-11-29] MEDS ORDERED: PANTOprazole 40 MG TAB PO SCH (09:00)
[2018-11-29] MEDS ORDERED: BuPROPion SR 100 MG TABCR PO SCH (09:00)
[2018-11-29] MEDS: LINACLOTIDE 72 MCG CAPSULE PO SCH (09:06)
--- NOTE | 2018-11-29 18:07 | Hospitalist Progress Note ---
Date of Service November 29, 2018 Assessment & Plan (1) Pneumonia: Poss 2/2 friend who was ill vs recent trip to [place]. [facility]. Sputum culture requested. (2) COPD exacerbation: IV solumedrol, scheduled nebulizer treatments, Levaquin. Cont oxygen sup plementation for goal saturation 88-92%. Continuous pulse ox for at least 24 hours ordered. (3) Hypoxia: Uses 2 L at night at baseline. Currently requiring 3 L round the clock for the past 3 days. Pulse ox at bedside for first 24 hours. Should not be 100% saturation--goal is 88-92% (4) Smoker: Per recent pulmonary note patient has not been smoking. Continue to encourage to stay quit. (5) Depression: Stable, continue home medications. (6) Chronic constipation: Continue home medications. (7) DVT prophylaxis: Lovenox Full code Disposition-continue telemetry monitoring Qian Lazar DO [facility] Hospitalist Subjective doing well this am didnt get sleep persistent cough tolerating PO ambulating around the room Physical Exam Vital Signs (Past 24 Hours): Last Vital Signs Temp 36.9 C 11/29/18 15:21 Pulse 108 H 11/29/18 15:21 Resp 20 11/29/18 15:21 BP 145/63 H 11/29/18 15:21 Pulse Ox 93 11/29/18 15:21 CONSTITUTIONAL: WNWD, vitals as above, generally well-appearing EYES: PERRL, normal conjuctivae, no scleral icterus ENT: MMM RESPIRATORY: significant wheezing throughout all lung heredia. Coarse rhonchi superimposed diffusely, somewhat imrpoved from yesterday CARDIOVASCULAR: regular rate and rhythm, S1 and 2 heard without murmurs, gallops or rubs, no JVD, no peripheral edema GASTROINTESTINAL: normal bowel sounds, soft, nontender, nondistended MUSCULOSKELETAL: strength 5/5 throughout, head is normocephalic and atraumatic SKIN: warm and dry NEUROLOGIC: CN 2-12 grossly intact, normal cognition, normal speech PSYCHIATRIC: alert cooperative and oriented to person, place and time. Results & Data Laboratory Results Short CBC 11/29/18 Range/Units 07:23 WBC 4.70 L (4.8-10.8) K/uL Hgb 12.0 (12.0-16.0) g/dL Hct 36.5 L (37-47) % Plt Count 202 (130-400) K/uL BMP 11/29/18 07:23 Sodium 142 Potassium 4.1 Chloride 105 Carbon Dioxide 32 BUN 10 Creatinine 0.62 Glucose 123 H Calcium 9.5 Urine 11/28/18 Range/Units 23:50 Urine Color Yellow Urine Appearance Clear (Clear) Urine pH 6.5 (4.5-7.5) Ur Specific [place] <= 1.005 (1.000-1.030) Urine Protein Negative (Negative) Urine Glucose (UA) 1+ H (Negative) Medications Administered Current Inpatient Medications Acetaminophen (Tylenol) 650 mg PO Q4H PRN PRN Reason: Pain or Fever Stop: 12/28/18 19:41 Albuterol (Duoneb) 3 ml NEB QIDR [facility] Stop: 12/29/18 07:59 Last Admin: 11/29/18 15:58 Dose: 3 ml Documented by: Ascorbic Acid (Vitamin C) 1,000 mg PO DAILY [facility] Stop: 12/29/18 08:59 Last Admin: 11/29/18 08:24 Dose: 1,000 mg Documented by: Aspirin (Ecotrin Ectab) 81 mg PO Q2D@2100 [facility] Stop: 12/28/18 20:59 Last Admin: 11/28/18 22:13 Dose: 81 mg Documented by: Bupropion HCl (Wellbutrin-Sr) 100 mg PO QAM [facility] Stop: 12/29/18 08:59 Last Admin: 11/29/18 08:24 Dose: 100 mg Documented by: Buspirone HCl (Buspar) 5 mg PO DAILY [facility] Stop: 12/29/18 08:59 Last Admin: 11/29/18 08:24 Dose: 5 mg Documented by: Calcium Carbonate (Os-Giuseppe 500) 1,250 mg PO TID [facility] Stop: 12/28/18 20:59 Last Admin: 11/29/18 13:21 Dose: 1,250 mg Documented by: Cetirizine HCl (Zyrtec) 10 mg PO DAILY PRN PRN Reason: ALLERGIES Stop: 12/28/18 20:38 Last Admin: 11/29/18 16:29 Dose: 10 mg Documented by: Cyanocobalamin (Vitamin B-12) 1,000 mcg PO DAILY [facility] Stop: 12/29/18 08:59 Last Admin: 11/29/18 08:26 Dose: 1,000 mcg Documented by: Enoxaparin Sodium (Lovenox) 40 mg SQ QAM [facility] Stop: 12/29/18 08:59 Last Admin: 11/29/18 08:26 Dose: 40 mg Documented by: Fluticasone Propionate (Flonase) 1 sprays NA DAILY [facility] Stop: 12/29/18 08:59 Last Admin: 11/29/18 08:25 Dose: 1 sprays Documented by: Methylprednisolone 40 mg/ (Syringe) 0.64 mls @ 1.5 mls/min IV Q8H [facility] Stop: 12/28/18 21:59 Last Admin: 11/29/18 13:21 Dose: 1.5 mls/min Documented by: Levofloxacin/Dextrose (Levaquin/D5w) 750 mg in 150 mls @ 100 mls/hr IV Q24H [facility] Stop: 12/05/18 21:59 Last Infusion: 11/28/18 23:45 Dose: Infused Documented by: Ioversol (Optiray 320 125ml) 117 ml IV ONCE PRN PRN Reason: Interaction Checking Stop: 12/02/18 17:14 Last Admin: 11/28/18 17:15 Dose: 117 ml Documented by: Linaclotide (Linzess) 72 mcg PO DAILY@0730 [facility] Stop: 12/29/18 08:29 Last Admin: 11/29/18 09:06 Dose: 72 mcg Documented by: Montelukast Sodium (Singulair) 10 mg PO DAILY [facility] Stop: 12/29/18 08:59 Last Admin: 11/29/18 08:25 Dose: 10 mg Documented by: Pantoprazole Sodium (Protonix) 40 mg PO DAILY@0730 [facility] Stop: 12/30/18 07:29 Polyethylene Glycol (Miralax Powder Packet) 17 gm PO DAILY PRN PRN Reason: Constipation Stop: 12/28/18 19:41 Rosuvastatin Calcium (Crestor) 20 mg PO DAILY [facility] Stop: 12/29/18 08:59 Last Admin: 11/29/18 08:24 Dose: 20 mg Documented by: Sennosides (Senokot) 17.2 mg PO BID [facility] Stop: 12/28/18 20:59 Last Admin: 11/29/18 08:24 Dose: 17.2 mg Documented by: Tamsulosin HCl (Flomax) 0.4 mg PO QPM [facility] Stop: 12/28/18 20:59 Last Admin: 11/28/18 22:12 Dose: 0.4 mg Documented by: Trazodone HCl (Desyrel) 50 mg PO HS [facility] Stop: 12/29/18 20:59 Venlafaxine HCl (Effexor Extended Release) 150 mg PO DAILY [facility] Stop: 12/29/18 08:59 Last Admin: 11/29/18 08:24 Dose: 150 mg Documented by:
[2018-11-29] MEDS: TAMSULOSIN HCL 0.4 MG CAP PO SCH (20:19)
[2018-11-29] MEDS: TRAZODONE HCL 50 MG TAB PO SCH (20:19)
[2018-11-29] MEDS: LEVOFLOXACIN/D5W 750 MG/150 ML BAG IV SCH (21:36)
[2018-11-30] MEDS: methylPREDNISolone 40 MG in SYRINGE 0 ML IV SCH ×3 (06:02→20:33)
[2018-11-30 06:40] LABS: Hematocrit (blood only) 35.3 % (37-47); Hemoglobin 11.7 g/dL (12.0-16.0); Mean Corpuscular Hgb Conc 33.1 g/dL (32-36); Mean Corpuscular Volume 94.6 fL (80-100); Mean Platelet Volume 8.4 fL (7.4-10.4); Platelet Count 210 K/uL (130-400); RDW Coefficient of Variation 12.7 % (11.5-14.5); RDW Standard Deviation 44.1 fL (36.4-46.3); Red Blood Count 3.73 M/uL (4.2-5.4); White Blood Count 11.36 K/uL (4.8-10.8)
[2018-11-30] MEDS: ALBUT/IPRATROP 3MG/0.5MG NEB 3 ML VIAL NEB SCH ×4 (07:00→19:08)
[2018-11-30 07:15] LABS: BUN Creatinine Ratio 23.2 (10-20); Calcium 9.3 mg/dl (8.5-10.1); Creatinine Clr Calc Pharmacy 52.5 ml/min; Est GFR (African American) 96.3; Est GFR (Non-African American) 83.1; Potassium 3.9 mmol/L (3.5-5.1)
[2018-11-30] MEDS ORDERED: PANTOprazole 40 MG TAB PO SCH (07:30)
[2018-11-30] MEDS: CALCIUM CARBONATE 1250MG TAB PO SCH ×3 (08:16→20:34)
[2018-11-30] MEDS: LINACLOTIDE 72 MCG CAPSULE PO SCH (08:17)
[2018-11-30] MEDS: CYANOCOBALAMIN 500 MCG TABLET (VITAMIN B-12) PO SCH (08:17)
[2018-11-30] MEDS: VENLAFAXINE HCL XR 150 MG CAPXR PO SCH (08:17)
[2018-11-30] MEDS: SENNA 8.6 MG TAB PO SCH ×2 (08:18→20:36)
[2018-11-30] MEDS: ASCORBIC ACID 500 MG TAB PO SCH (08:18)
[2018-11-30] MEDS: ENOXAPARIN INJ 40 MG/0.4 ML SYR SQ SCH (08:18)
[2018-11-30] MEDS: FLUTICASONE PROPIONATE NA SPR 16 GM BTL SCH (09:03)
[2018-11-30] MEDS: BuPROPion SR 100 MG TABCR PO SCH (14:15)
--- NOTE | 2018-11-30 14:26 | Hospitalist Progress Note ---
Date of Service November 30, 2018 Assessment & Plan (1) Pneumonia: Poss 2/2 friend who was ill vs recent trip to [place]. [facility]. Sputum culture pending. (2) COPD exacerbation: Continue IV Solu-Medrol, scheduled nebulizer treatments, Levaquin. She is improving but we are not quite there yet and need another day before considering prednisone taper. Continue oxygen supplementation as needed for goal saturation 88-92%. Encouraged to ambulate. (3) Hypoxia: Uses 2 L at night at baseline. Currently requiring 3 L round the clock for the past 3 days. Pulse ox at bedside for first 24 hours. Should not be 1 00% saturation--goal is 88-92% (4) Smoker: Per recent pulmonary note patient has not been smoking. Continue to encourage to stay quit. (5) Depression: Stable, continue home medications. (6) Chronic constipation: Continue home medications. (7) DVT prophylaxis: Lovenox Full code Disposition-continue telemetry monitoring Qian Lazar DO [facility] Hospitalist Subjective She is feeling well today, reports that her friend that was sick also infected her . This appears to be the etiology of her current illness. She is still dyspneic with exertion which is expected with the amount of wheezing that is still present but she does appear improved on current therapy. She is afebrile, tolerating p.o. and mentating at baseline. She reports her cough is improved Physical Exam Vital Signs (Past 24 Hours): Last Vital Signs Temp 36.8 C 11/30/18 10:41 Pulse 101 H 11/30/18 11:18 Resp 18 11/30/18 11:18 BP 120/97 11/30/18 10:41 Pulse Ox 97 11/30/18 11:18 CONSTITUTIONAL: WNWD, vitals as above, generally well-appearing EYES: PERRL, normal conjuctivae, no scleral icterus ENT: MMM RESPIRATORY: significant wheezing throughout all lung heredia. No rhonchi heard. Some upper airway sounds which have improved. CARDIOVASCULAR: regular rate and rhythm, S1 and 2 heard without murmurs, gallops or rubs, no JVD, no peripheral edema GASTROINTESTINAL: normal bowel sounds, soft, nontender, nondistended MUSCULOSKELETAL: strength 5/5 throughout, head is normocephalic and atraumatic SKIN: warm and dry NEUROLOGIC: CN 2-12 grossly intact, normal cognition, normal speech PSYCHIATRIC: alert cooperative and oriented to person, place and time. Results & Data Laboratory Results Short CBC 11/30/18 Range/Units 06:24 WBC 11.36 H (4.8-10.8) K/uL Hgb 11.7 L (12.0-16.0) g/dL Hct 35.3 L (37-47) % Plt Count 210 (130-400) K/uL BMP 11/30/18 06:24 Sodium 144 Potassium 3.9 Chloride 107 Carbon Dioxide 33 H BUN 17 D Creatinine 0.72 Glucose 135 H Calcium 9.3 Medications Administered Current Inpatient Medications Acetaminophen (Tylenol) 650 mg PO Q4H PRN PRN Reason: Pain or Fever Stop: 12/28/18 19:41 Albuterol (Duoneb) 3 ml NEB QIDR [facility] Stop: 12/29/18 07:59 Last Admin: 11/30/18 11:18 Dose: 3 ml Documented by: Ascorbic Acid (Vitamin C) 1,000 mg PO DAILY [facility] Stop: 12/29/18 08:59 Last Admin: 11/30/18 08:18 Dose: 1,000 mg Documented by: Aspirin (Ecotrin Ectab) 81 mg PO Q2D@2100 [facility] Stop: 12/28/18 20:59 Last Admin: 11/28/18 22:13 Dose: 81 mg Documented by: Bupropion HCl (Wellbutrin-Sr) 100 mg PO DAILY@1400 [facility] Stop: 12/29/18 08:59 Last Admin: 11/30/18 14:15 Dose: 100 mg Documented by: Buspirone HCl (Buspar) 5 mg PO DAILY [facility] Stop: 12/29/18 08:59 Last Admin: 11/30/18 08:18 Dose: 5 mg Documented by: Calcium Carbonate (Os-Giuseppe 500) 1,250 mg PO TID [facility] Stop: 12/28/18 20:59 Last Admin: 11/30/18 14:15 Dose: 1,250 mg Documented by: Cetirizine HCl (Zyrtec) 10 mg PO DAILY PRN PRN Reason: ALLERGIES Stop: 12/28/18 20:38 Last Admin: 11/29/18 16:29 Dose: 10 mg Documented by: Cyanocobalamin (Vitamin B-12) 1,000 mcg PO DAILY [facility] Stop: 12/29/18 08:59 Last Admin: 11/30/18 08:17 Dose: 1,000 mcg Documented by: Enoxaparin Sodium (Lovenox) 40 mg SQ QAM [facility] Stop: 12/29/18 08:59 Last Admin: 11/30/18 08:18 Dose: 40 mg Documented by: Fluticasone Propionate (Flonase) 1 sprays NA DAILY [facility] Stop: 12/29/18 08:59 Last Admin: 11/30/18 09:03 Dose: Not Given Documented by: Methylprednisolone 40 mg/ (Syringe) 0.64 mls @ 1.5 mls/min IV Q8H [facility] Stop: 12/28/18 21:59 Last Admin: 11/30/18 14:15 Dose: 1.5 mls/min Documented by: Levofloxacin/Dextrose (Levaquin/D5w) 750 mg in 150 mls @ 100 mls/hr IV Q24H [facility] Stop: 12/05/18 21:59 Last Infusion: 11/29/18 23:29 Dose: Infused Documented by: Ioversol (Optiray 320 125ml) 117 ml IV ONCE PRN PRN Reason: Interaction Checking Stop: 12/02/18 17:14 Last Admin: 11/28/18 17:15 Dose: 117 ml Documented by: Linaclotide (Linzess) 72 mcg PO DAILY@0700 [facility] Stop: 12/29/18 08:29 Montelukast Sodium (Singulair) 10 mg PO HS [facility] Stop: 12/29/18 08:59 Pantoprazole Sodium (Protonix) 40 mg PO DAILY@0700 [facility] Stop: 12/30/18 07:29 Polyethylene Glycol (Miralax Powder Packet) 17 gm PO DAILY PRN PRN Reason: Constipation Stop: 12/28/18 19:41 Rosuvastatin Calcium (Crestor) 20 mg PO HS [facility] Stop: 12/29/18 08:59 Sennosides (Senokot) 17.2 mg PO BID [facility] Stop: 12/28/18 20:59 Last Admin: 11/30/18 08:18 Dose: 17.2 mg Documented by: Tamsulosin HCl (Flomax) 0.4 mg PO QPM [facility] Stop: 12/28/18 20:59 Last Admin: 11/29/18 20:19 Dose: 0.4 mg Documented by: Trazodone HCl (Desyrel) 50 mg PO HS [facility] Stop: 12/29/18 20:59 Last Admin: 11/29/18 20:19 Dose: 50 mg Documented by: Venlafaxine HCl (Effexor Extended Release) 150 mg PO DAILY [facility] Stop: 12/29/18 08:59 Last Admin: 11/30/18 08:17 Dose: 150 mg Documented by:
[2018-11-30] MEDS: LEVOFLOXACIN/D5W 750 MG/150 ML BAG IV SCH (20:33)
[2018-11-30] MEDS: TAMSULOSIN HCL 0.4 MG CAP PO SCH (20:35)
[2018-11-30] MEDS: ASPIRIN 81 MG ECTAB PO SCH (20:35)
[2018-11-30] MEDS: ROSUVASTATIN CALCIUM 20 MG TAB PO SCH (20:36)
[2018-11-30] MEDS: TRAZODONE HCL 50 MG TAB PO SCH (20:36)
[2018-11-30] MEDS: MONTELUKAST SODIUM 10 MG TABLET PO SCH (20:37)
[2018-12-01] MEDS: methylPREDNISolone 40 MG in SYRINGE 0 ML IV SCH ×3 (06:04→20:17)
[2018-12-01] MEDS: PANTOprazole 40 MG TAB PO SCH (07:19)
[2018-12-01] MEDS: LINACLOTIDE 72 MCG CAPSULE PO SCH (07:19)
[2018-12-01] MEDS: ASCORBIC ACID 500 MG TAB PO SCH (07:21)
[2018-12-01] MEDS: SENNA 8.6 MG TAB PO SCH ×2 (07:21→21:27)
[2018-12-01] MEDS: CALCIUM CARBONATE 1250MG TAB PO SCH ×3 (07:22→21:27)
[2018-12-01] MEDS: VENLAFAXINE HCL XR 150 MG CAPXR PO SCH (07:22)
[2018-12-01] MEDS: CYANOCOBALAMIN 500 MCG TABLET (VITAMIN B-12) PO SCH (07:22)
[2018-12-01] MEDS: ALBUT/IPRATROP 3MG/0.5MG NEB 3 ML VIAL NEB SCH ×5 (07:23→19:00)
[2018-12-01] MEDS: ENOXAPARIN INJ 40 MG/0.4 ML SYR SQ SCH (07:23)
[2018-12-01] MEDS: BuPROPion SR 100 MG TABCR PO SCH (13:40)
--- NOTE | 2018-12-01 17:23 | Hospitalist Progress Note ---
Date of Service December 01, 2018 Assessment & Plan (1) Pneumonia: Poss 2/2 friend who was ill vs recent trip to [place]. [facility]. Sputum culture negative (2) COPD exacerbation: Continue IV Solu-Medrol with increased frequency to q6h, scheduled nebulizer treatments, Levaquin. Continue oxygen supplementation as needed for goal saturation 88-92%. Encouraged to ambulate. She is not improved much will consult pulmonology for assistance. (3) Hypoxia: Uses 2 L at night at baseline. Currently requiring 3 L round the clock for the past 3 days. Pulse ox at bedside for first 24 hours. Should not be 100% saturation--goal is 88-92% (4) Smoker: Per recent pulmonary note patient has not been smoking. Continue to encourage to stay quit. (5) Depression: Stable, continue home medications. (6) Chronic constipation: Continue home medications. (7) DVT prophylaxis: Lovenox Full code Disposition-continue telemetry monitoring Qian Lazar DO [facility] Hospitalist Subjective Patient does not feel much improved. She continues to cough and have dyspnea on exertion. Physical Exam Vital Signs (Past 24 Hours): Last Vital Signs Temp 36.9 C 12/01/18 15:42 Pulse 107 H 12/01/18 15:42 Resp 20 12/01/18 15:42 BP 147/67 H 12/01/18 15:42 Pulse Ox 96 12/01/18 15:42 CONSTITUTIONAL: WNWD, vitals as above, generally well-appearing EYES: PERRL, normal conjuctivae, no scleral icterus ENT: MMM RESPIRATORY: significant wheezing throughout all lung heredia. No rhonchi heard. Some upper airway sounds which have improved. CARDIOVASCULAR: regular rate and rhythm, S1 and 2 heard without murmurs, gallops or rubs, no JVD, no peripheral edema GASTROINTESTINAL: normal bowel sounds, soft, nontender, nondistended MUSCULOSKELETAL: strength 5/5 throughout, head is normocephalic and atraumatic SKIN: warm and dry NEUROLOGIC: CN 2-12 grossly intact, normal cognition, normal speech PSYCHIATRIC: alert cooperative and oriented to person, place and time Results & Data Medications Administered Current Inpatient Medications Acetaminophen (Tylenol) 650 mg PO Q4H PRN PRN Reason: Pain or Fever Stop: 12/28/18 19:41 Albuterol (Duoneb) 3 ml NEB QIDR [facility] Stop: 12/29/18 07:59 Last Admin: 12/01/18 15:24 Dose: 3 ml Documented by: Ascorbic Acid (Vitamin C) 1,000 mg PO DAILY [facility] Stop: 12/29/18 08:59 Last Admin: 12/01/18 07:21 Dose: 1,000 mg Documented by: Aspirin (Ecotrin Ectab) 81 mg PO Q2D@2100 [facility] Stop: 12/28/18 20:59 Last Admin: 11/30/18 20:35 Dose: 81 mg Documented by: Bupropion HCl (Wellbutrin-Sr) 100 mg PO DAILY@1400 [facility] Stop: 12/29/18 08:59 Last Admin: 12/01/18 13:40 Dose: 100 mg Documented by: Buspirone HCl (Buspar) 5 mg PO DAILY [facility] Stop: 12/29/18 08:59 Last Admin: 12/01/18 07:20 Dose: 5 mg Documented by: Calcium Carbonate (Os-Giuseppe 500) 1,250 mg PO TID [facility] Stop: 12/28/18 20:59 Last Admin: 12/01/18 13:40 Dose: 1,250 mg Documented by: Cetirizine HCl (Zyrtec) 10 mg PO DAILY PRN PRN Reason: ALLERGIES Stop: 12/28/18 20:38 Last Admin: 11/29/18 16:29 Dose: 10 mg Documented by: Cyanocobalamin (Vitamin B-12) 1,000 mcg PO DAILY [facility] Stop: 12/29/18 08:59 Last Admin: 12/01/18 07:22 Dose: 1,000 mcg Documented by: Enoxaparin Sodium (Lovenox) 40 mg SQ QAM [facility] Stop: 12/29/18 08:59 Last Admin: 12/01/18 07:23 Dose: 40 mg Documented by: Fluticasone Propionate (Flonase) 1 sprays NA PM [facility] Stop: 12/31/18 20:59 Methylprednisolone 40 mg/ (Syringe) 0.64 mls @ 1.5 mls/min IV Q6H [facility] Stop: 12/31/18 17:29 Ioversol (Optiray 320 125ml) 117 ml IV ONCE PRN PRN Reason: Interaction Checking Stop: 12/02/18 17:14 Last Admin: 11/28/18 17:15 Dose: 117 ml Documented by: Levofloxacin (Levaquin) 750 mg PO Q24H [facility] Stop: 12/08/18 17:29 Linaclotide (Linzess) 72 mcg PO DAILY@0700 [facility] Stop: 12/29/18 08:29 Last Admin: 12/01/18 07:19 Dose: 72 mcg Documented by: Montelukast Sodium (Singulair) 10 mg PO [facility] Stop: 12/29/18 08:59 Last Admin: 11/30/18 20:37 Dose: 10 mg Documented by: Pantoprazole Sodium (Protonix) 40 mg PO DAILY@0700 [facility] Stop: 12/30/18 07:29 Last Admin: 12/01/18 07:19 Dose: 40 mg Documented by: Polyethylene Glycol (Miralax Powder Packet) 17 gm PO DAILY PRN PRN Reason: Constipation Stop: 12/28/18 19:41 Rosuvastatin Calcium (Crestor) 20 mg PO [facility] Stop: 12/29/18 08:59 Last Admin: 11/30/18 20:36 Dose: 20 mg Documented by: Sennosides (Senokot) 17.2 mg PO BID [facility] Stop: 12/28/18 20:59 Last Admin: 12/01/18 07:21 Dose: 17.2 mg Documented by: Tamsulosin HCl (Flomax) 0.4 mg PO QPM [facility] Stop: 12/28/18 20:59 Last Admin: 11/30/18 20:35 Dose: 0.4 mg Documented by: Trazodone HCl (Desyrel) 50 mg PO [facility] Stop: 12/29/18 20:59 Last Admin: 11/30/18 20:36 Dose: 50 mg Documented by: Venlafaxine HCl (Effexor Extended Release) 150 mg PO DAILY [facility] Stop: 12/29/18 08:59 Last Admin: 12/01/18 07:22 Dose: 150 mg Documented by:
[2018-12-01] MEDS: TRAZODONE HCL 50 MG TAB PO SCH (21:26)
[2018-12-01] MEDS: ROSUVASTATIN CALCIUM 20 MG TAB PO SCH (21:26)
[2018-12-01] MEDS: TAMSULOSIN HCL 0.4 MG CAP PO SCH (21:27)
[2018-12-01] MEDS: levoFLOXacin 750 MG TAB PO SCH (21:27)
[2018-12-01] MEDS: FLUTICASONE PROPIONATE NA SPR 16 GM BTL SCH (21:27)
[2018-12-01] MEDS: MONTELUKAST SODIUM 10 MG TABLET PO SCH (21:27)
[2018-12-01] MEDS ORDERED: LORazepam 0.5 MG TAB PO STA (22:25)
[2018-12-02] MEDS: methylPREDNISolone 40 MG in SYRINGE 0 ML IV SCH ×4 (01:53→19:48)
[2018-12-02 06:40] LABS: Hematocrit (blood only) 36.8 % (37-47); Mean Corpuscular Hgb Conc 32.6 g/dL (32-36); Mean Corpuscular Volume 94.4 fL (80-100); Mean Platelet Volume 8.1 fL (7.4-10.4); Platelet Count 225 K/uL (130-400); RDW Coefficient of Variation 12.7 % (11.5-14.5); White Blood Count 7.25 K/uL (4.8-10.8)
[2018-12-02] MEDS: ALBUT/IPRATROP 3MG/0.5MG NEB 3 ML VIAL NEB SCH ×4 (06:57→18:50)
[2018-12-02] MEDS: PANTOprazole 40 MG TAB PO SCH (07:03)
[2018-12-02] MEDS: LINACLOTIDE 72 MCG CAPSULE PO SCH (07:03)
[2018-12-02 07:17] LABS: BUN Creatinine Ratio 22.2 (10-20); Calcium 8.8 mg/dl (8.5-10.1); Creatinine Clr Calc Pharmacy 57.3 ml/min; Est GFR (African American) 101.6; Est GFR (Non-African American) 87.6; Potassium 3.7 mmol/L (3.5-5.1)
[2018-12-02] MEDS: SENNA 8.6 MG TAB PO SCH ×2 (08:57→20:56)
[2018-12-02] MEDS: CALCIUM CARBONATE 1250MG TAB PO SCH ×3 (08:57→20:55)
[2018-12-02] MEDS: ASCORBIC ACID 500 MG TAB PO SCH (08:57)
[2018-12-02] MEDS: VENLAFAXINE HCL XR 150 MG CAPXR PO SCH (08:57)
[2018-12-02] MEDS: CYANOCOBALAMIN 500 MCG TABLET (VITAMIN B-12) PO SCH (08:58)
[2018-12-02] MEDS: ENOXAPARIN INJ 40 MG/0.4 ML SYR SQ SCH (08:58)
--- NOTE | 2018-12-02 13:20 | Consultation Report ---
DATE OF CONSULTATION: 12/02/2018 PULMONARY MEDICINE CONSULTATION REASON FOR CONSULTATION: COPD exacerbation. HISTORY OF PRESENT ILLNESS: A 73-year-old pleasant white female with a known history of severe COPD, who uses oxygen at 2 liters at home at night and p.r.n. during the day and lives at [place] at [facility], was admitted to the hospitalist service on 11/28/2018. The patient states she was in [place] near [place] for 5 weeks, was doing well and recently drove home with a friend who has had an upper respiratory infection. She stayed there overnight in [place] and then when she came home, became extremely dyspneic and congested. Her also got ill. She had fever and diaphoresis and although the fever went, her sinus symptoms worsened and she felt a cough progressed and she felt much more dyspneic. She does use a nebulizer at home, usually once daily, but had used it more frequently and has been on Advair Diskus inhaler 500/50 one puff b.i.d. along with Singulair and Mucinex D. She is followed by a nurse by [facility] with the [facility], although did see a oracle dba from [place] who saw her briefly in the office and concurred with therapy. She states that this fall, she had multiple courses of antibiotics and prednisone and was treated as well for a "fungal infection of the lung", it took several months to improve before she went down to [place], she seems to do better with that weather. She has continued to smoke, although a few cigarettes here and there up until 9 days ago and started in her late teens, early 20s. She has 2 children, 1 who lives in [place], [place] and other in [place] and prior to going to [place] was visiting [place]. 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 She states many years ago, she was evaluated by Dr. 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 The records from [facility] are not available to me currently. For details of past medical history, medications, family history, I refer you to current and past record. There has been some mild hemoptysis with regards to cough. PHYSICAL EXAMINATION: GENERAL: Well-developed, thin white female with coughing paroxysms frequently, but able to converse with me. VITAL SIGNS: Blood pressure 142/71, pulse 103 and regular, respiratory rate 19, temperature 36.7, O2 sat 94% on 2 liters. SKIN: Warm and dry. HEENT: Atraumatic, normocephalic, PERRLA, EOMI. Conjunctivae pale. Sclerae nonicteric. Fundi poorly visualized. NECK: Neck veins not distended at 45 degrees. No evidence of adenopathy in the supra or infraclavicular areas. LUNGS: Marked hyperresonance with coarse wheezes diffusely. No obvious egophony. CARDIAC EXAM: Sinus tachycardia. No murmurs or gallops. ABDOMEN: Soft, scaphoid. No evidence of hepatosplenomegaly. EXTREMITIES: No pedal edema, clubbing or cyanosis. NEUROLOGICAL: Intact. No lateralizing signs. LABORATORY DATA: CT scanning reviewed and compared to 10/16/2012. There are multiple solid pulmonary nodules, some measuring up to 7 mm, the lateral and the superior segment of right lower lobe. It is new since 2012. There are multiple tree-in-bud opacities in the right lower lobe and to a lesser extent involving the left lower lobe. Centrilobular emphysema and moderate to severe and diffuse bronchial wall thickening with subsegmental bronchioles debris in the lower lobe was noted. There may be some mild paratracheal adenopathy. OTHER LABORATORY DATA: White count 8700 on admission, now 7200, H and H 12.0 and 36.8 on admission. There was no significant peripheral eosinophilia, preponderance of polymorphonuclear lymphocytes noted. ABGs on admission pH 7.35, pCO2 of 60, pO2 of 24 on venous gas. Calculated CO2 of 34. Influenza type A and B PCR negative. D-dimer was 610. OVERALL ASSESSMENT: A 73-year-old with severe chronic obstructive pulmonary disease, O2 dependent status post upper respiratory infection with persistent and worsening bronchospasm, only modestly showing improvement with IV methylprednisolone at 40 mg q. 6 hours. The patient is receiving nebulizer treatments with DuoNeb and is on Levaquin therapy. The patient is showing only as stated early modest improvement. There are multiple subcentimeter nodules on CT scan that will bear further followup that could represent an infectious etiology or neoplasm. The multiple tree-in-bud and lower lobe opacities are concerning and certainly look inflammatory or infectious. I will take the liberty of ordering serologies for Aspergillus and other fungal infections, in addition check antibodies to atypical bacterial infections. The patient has no known allergies. She may require more broad antibiotic coverage, could certainly have a superimposed staph or MRSA infection following what sounds like a viral bronchitis. I would continue Levaquin for now, but would broaden her antibiotics to IV cefepime and vancomycin pending clinical courseif pt does not seem to be improving We will add 7% normal saline to her nebulizer treatments and a flutter valve. The patient would be high risk for bronchoscopic intervention, but suspect a significant degree of mucoviscous secretion and perhaps mucus plugging. We will also ask for records from [facility] to peruse. Concern of patient developing worsening signs of incipient respiratory failure. MTDD
[2018-12-02] MEDS: BuPROPion SR 100 MG TABCR PO SCH (14:00)
--- NOTE | 2018-12-02 16:04 | Hospitalist Progress Note ---
Date of Service December 02, 2018 Assessment & Plan (1) Pneumonia: Poss 2/2 friend who was ill vs recent trip to [facility]. Sputum culture negative. Apprec pulm recs (2) COPD exacerbation: Continue IV Solu-Medrol with increased frequency to q6h, scheduled nebulizer treatments, Levaquin. Continue oxygen supplementation as needed for goal saturation 88-92%. Encouraged to ambulate. She is improving today. Pulm added chest physiotherapy vest daily and hypertonic saline nebs. (3) Hypoxia: Uses 2 L at night at baseline. Starting to require less oxygen. Pulse ox at bedside for first 24 hours. Should not be 100% saturation--goal is 88-92% (4) Smoker: Per recent pulmonary note patient has not been smoking. Continue to encourage to stay quit. (5) Depression: Stable, continue home medications. (6) Chronic constipation: Continue home medications. (7) DVT prophylaxis: Lovenox Full code Disposition-continue telemetry monitoring Qian Lazar DO [facility] Hospitalist Subjective Some improvement per patient. Coughing has improved. Afebrile, ambulatory, mentating at baseline. Physical Exam Vital Signs (Past 24 Hours): Last Vital Signs Temp 36.8 C 12/02/18 15:34 Pulse 108 H 12/02/18 15:34 Resp 20 12/02/18 15:34 BP 168/80 H 12/02/18 15:34 Pulse Ox 92 12/02/18 15:34 CONSTITUTIONAL: WNWD, vitals as above, generally well-appearing EYES: normal conjuctivae, no scleral icterus ENT: MMM RESPIRATORY: significant wheezing throughout all lung heredia-improved. No rhonchi heard. Some upper airway sounds which have improved. CARDIOVASCULAR: regular rate and rhythm, S1 and 2 heard without murmurs, gallops or rubs, no JVD, no peripheral edema GASTROINTESTINAL: normal bowel sounds, soft, nontender, nondistended MUSCULOSKELETAL: strength 5/5 throughout, head is normocephalic and atraumatic SKIN: warm and dry NEUROLOGIC: CN 2-12 grossly intact, normal cognition, normal speech PSYCHIATRIC: alert cooperative and oriented to person, place and time Results & Data Laboratory Results Short CBC 12/02/18 Range/Units 06:27 WBC 7.25 (4.8-10.8) K/uL Hgb 12.0 (12.0-16.0) g/dL Hct 36.8 L (37-47) % Plt Count 225 (130-400) K/uL BMP 12/02/18 06:27 Sodium 142 Potassium 3.7 Chloride 104 Carbon Dioxide 34 H BUN 15 Creatinine 0.66 Glucose 137 H Calcium 8.8 Medications Administered Current Inpatient Medications Acetaminophen (Tylenol) 650 mg PO Q4H PRN PRN Reason: Pain or Fever Stop: 12/28/18 19:41 Albuterol (Duoneb) 3 ml NEB QIDR [facility] Stop: 12/29/18 07:59 Last Admin: 12/02/18 14:59 Dose: 3 ml Documented by: Ascorbic Acid (Vitamin C) 1,000 mg PO DAILY [facility] Stop: 12/29/18 08:59 Last Admin: 12/02/18 08:57 Dose: 1,000 mg Documented by: Aspirin (Ecotrin Ectab) 81 mg PO Q2D@2100 [facility] Stop: 12/28/18 20:59 Last Admin: 11/30/18 20:35 Dose: 81 mg Documented by: Bupropion HCl (Wellbutrin-Sr) 100 mg PO DAILY@1400 [facility] Stop: 12/29/18 08:59 Last Admin: 12/02/18 14:00 Dose: 100 mg Documented by: Buspirone HCl (Buspar) 5 mg PO DAILY [facility] Stop: 12/29/18 08:59 Last Admin: 12/02/18 08:57 Dose: 5 mg Documented by: Calcium Carbonate (Os-Giuseppe 500) 1,250 mg PO TID [facility] Stop: 12/28/18 20:59 Last Admin: 12/02/18 14:00 Dose: 1,250 mg Documented by: Cetirizine HCl (Zyrtec) 10 mg PO DAILY PRN PRN Reason: ALLERGIES Stop: 12/28/18 20:38 Last Admin: 11/29/18 16:29 Dose: 10 mg Documented by: Cyanocobalamin (Vitamin B-12) 1,000 mcg PO DAILY [facility] Stop: 12/29/18 08:59 Last Admin: 12/02/18 08:58 Dose: 1,000 mcg Documented by: Enoxaparin Sodium (Lovenox) 40 mg SQ QAM [facility] Stop: 12/29/18 08:59 Last Admin: 12/02/18 08:58 Dose: 40 mg Documented by: Fluticasone Propionate (Flonase) 1 sprays NA PM [facility] Stop: 12/31/18 20:59 Last Admin: 12/01/18 21:27 Dose: 1 sprays Documented by: Methylprednisolone 40 mg/ (Syringe) 0.64 mls @ 1.5 mls/min IV Q6H [facility] Stop: 12/31/18 19:59 Last Admin: 12/02/18 14:01 Dose: 1.5 mls/min Documented by: Ioversol (Optiray 320 125ml) 117 ml IV ONCE PRN PRN Reason: Interaction Checking Stop: 12/02/18 17:14 Last Admin: 11/28/18 17:15 Dose: 117 ml Documented by: Levofloxacin (Levaquin) 750 mg PO Q24H [facility] Stop: 12/05/18 21:59 Last Admin: 12/01/18 21:27 Dose: 750 mg Documented by: Linaclotide (Linzess) 72 mcg PO DAILY@0700 [facility] Stop: 12/29/18 08:29 Last Admin: 12/02/18 07:03 Dose: 72 mcg Documented by: Montelukast Sodium (Singulair) 10 mg PO HS [facility] Stop: 12/29/18 08:59 Last Admin: 12/01/18 21:27 Dose: 10 mg Documented by: Pantoprazole Sodium (Protonix) 40 mg PO DAILY@0700 [facility] Stop: 12/30/18 07:29 Last Admin: 12/02/18 07:03 Dose: 40 mg Documented by: Polyethylene Glycol (Miralax Powder Packet) 17 gm PO DAILY PRN PRN Reason: Constipation Stop: 12/28/18 19:41 Rosuvastatin Calcium (Crestor) 20 mg PO HS [facility] Stop: 12/29/18 08:59 Last Admin: 12/01/18 21:26 Dose: 20 mg Documented by: Sennosides (Senokot) 17.2 mg PO BID [facility] Stop: 12/28/18 20:59 Last Admin: 12/02/18 08:57 Dose: 17.2 mg Documented by: Sodium Chloride (Sodium Chlor 7% Neb Solution) 4 ml INH BIDR [facility] Stop: 01/01/19 19:59 Tamsulosin HCl (Flomax) 0.4 mg PO QPM [facility] Stop: 12/28/18 20:59 Last Admin: 12/01/18 21:27 Dose: 0.4 mg Documented by: Trazodone HCl (Desyrel) 50 mg PO HS [facility] Stop: 12/29/18 20:59 Last Admin: 12/01/18 21:26 Dose: 50 mg Documented by: Venlafaxine HCl (Effexor Extended Release) 150 mg PO DAILY [facility] Stop: 12/29/18 08:59 Last Admin: 12/02/18 08:57 Dose: 150 mg Documented by:
[2018-12-02] MEDS: SODIUM CHLOR 7% 4 ML NEB INH SCH (18:59)
[2018-12-02] MEDS: ROSUVASTATIN CALCIUM 20 MG TAB PO SCH (20:52)
[2018-12-02] MEDS: TRAZODONE HCL 50 MG TAB PO SCH (20:52)
[2018-12-02] MEDS: ASPIRIN 81 MG ECTAB PO SCH (20:54)
[2018-12-02] MEDS: TAMSULOSIN HCL 0.4 MG CAP PO SCH (20:55)
[2018-12-02] MEDS: FLUTICASONE PROPIONATE NA SPR 16 GM BTL SCH (20:55)
[2018-12-02] MEDS: MONTELUKAST SODIUM 10 MG TABLET PO SCH (20:56)
[2018-12-02] MEDS: levoFLOXacin 750 MG TAB PO SCH (20:57)
[2018-12-02] MEDS: LORazepam 0.5 MG TAB PO PRN (20:59)
[2018-12-03] MEDS: methylPREDNISolone 40 MG in SYRINGE 0 ML IV SCH ×6 (02:49→21:13)
[2018-12-03] MEDS: PANTOprazole 40 MG TAB PO SCH (06:32)
[2018-12-03] MEDS: LINACLOTIDE 72 MCG CAPSULE PO SCH (06:32)
[2018-12-03] MEDS: SODIUM CHLOR 7% 4 ML NEB INH SCH ×2 (06:54→19:39)
[2018-12-03] MEDS: ALBUT/IPRATROP 3MG/0.5MG NEB 3 ML VIAL NEB SCH ×4 (06:54→19:25)
[2018-12-03] MEDS: VENLAFAXINE HCL XR 150 MG CAPXR PO SCH (07:43)
[2018-12-03] MEDS: ENOXAPARIN INJ 40 MG/0.4 ML SYR SQ SCH (07:43)
[2018-12-03] MEDS: CYANOCOBALAMIN 500 MCG TABLET (VITAMIN B-12) PO SCH (07:44)
[2018-12-03] MEDS: CALCIUM CARBONATE 1250MG TAB PO SCH ×3 (07:44→20:31)
[2018-12-03] MEDS: SENNA 8.6 MG TAB PO SCH ×2 (07:44→20:31)
[2018-12-03] MEDS: ASCORBIC ACID 500 MG TAB PO SCH (07:45)
[2018-12-03] MEDS: BuPROPion SR 100 MG TABCR PO SCH (13:57)
--- NOTE | 2018-12-03 18:08 | Hospitalist Progress Note ---
Date of Service December 03, 2018 Assessment & Plan (1) Pneumonia: Poss 2/2 friend who was ill vs recent trip to [place]. Sputum culture negative. Apprec pulm recs (2) COPD exacerbation: Change to prednisone in am and start prolonged taper, Levaquin. Continue oxygen supplementation as needed for goal saturation 88-92%. Encouraged to ambulate. She is improving today. Cont daily chest physiotherapy vest and hypertonic saline nebs per Pulm. (3) Hypoxia: Uses 2 L at night at baseline. No hypoxia at rest, but requires this with ambulation. (4) Smoker: Per recent pulmonary note patient has not been smoking. Continue to encourage to stay quit. (5) Depression: Stable, continue home medications. (6) Chronic constipation: Continue home medications. (7) DVT prophylaxis: Lovenox Full code Disposition-dc to home in am. Qian Lazar DO [facility] Hospitalist Subjective Still some coughing and wheezing today but improved overall clinically. She is reliably off oxygen at rest. She reports that her oxygen sat does fall into the 80s when she is moving around. She knows this because she wears a home pulse ox on her finger. Physical Exam Vital Signs (Past 24 Hours): Last Vital Signs Temp 36.7 C 12/03/18 15:12 Pulse 93 H 12/03/18 15:14 Resp 18 12/03/18 15:14 BP 150/78 H 12/03/18 15:12 Pulse Ox 93 12/03/18 15:14 CONSTITUTIONAL: WNWD, vitals as above, generally well-appearing EYES: normal conjuctivae, no scleral icterus ENT: MMM RESPIRATORY: wheezing throughout, improved. no rhonchi CARDIOVASCULAR: regular rate and rhythm, S1 and 2 heard without murmurs, gallops or rubs, no JVD, no peripheral edema GASTROINTESTINAL: normal bowel sounds, soft, nontender, nondistended MUSCULOSKELETAL: strength 5/5 throughout, head is normocephalic and atraumatic SKIN: warm and dry NEUROLOGIC: CN 2-12 grossly intact, normal cognition, normal speech PSYCHIATRIC: alert cooperative and oriented to person, place and time Results & Data Medications Administered Current Inpatient Medications Acetaminophen (Tylenol) 650 mg PO Q4H PRN PRN Reason: Pain or Fever Stop: 12/28/18 19:41 Albuterol (Duoneb) 3 ml NEB QIDR [facility] Stop: 12/29/18 07:59 Last Admin: 12/04/18 10:31 Dose: 3 ml Documented by: Ascorbic Acid (Vitamin C) 1,000 mg PO DAILY [facility] Stop: 12/29/18 08:59 Last Admin: 12/04/18 07:39 Dose: 1,000 mg Documented by: Aspirin (Ecotrin Ectab) 81 mg PO Q2D@2100 [facility] Stop: 12/28/18 20:59 Last Admin: 12/02/18 20:54 Dose: 81 mg Documented by: Bupropion HCl (Wellbutrin-Sr) 100 mg PO DAILY@1400 [facility] Stop: 12/29/18 08:59 Last Admin: 12/03/18 13:57 Dose: 100 mg Documented by: Buspirone HCl (Buspar) 5 mg PO DAILY [facility] Stop: 12/29/18 08:59 Last Admin: 12/04/18 07:40 Dose: 5 mg Documented by: Calcium Carbonate (Os-Giuseppe 500) 1,250 mg PO TID [facility] Stop: 12/28/18 20:59 Last Admin: 12/04/18 07:40 Dose: 1,250 mg Documented by: Cetirizine HCl (Zyrtec) 10 mg PO DAILY PRN PRN Reason: ALLERGIES Stop: 12/28/18 20:38 Last Admin: 11/29/18 16:29 Dose: 10 mg Documented by: Cyanocobalamin (Vitamin B-12) 1,000 mcg PO DAILY [facility] Stop: 12/29/18 08:59 Last Admin: 12/04/18 07:39 Dose: 1,000 mcg Documented by: Enoxaparin Sodium (Lovenox) 40 mg SQ QAM [facility] Stop: 12/29/18 08:59 Last Admin: 12/04/18 07:38 Dose: 40 mg Documented by: Fluticasone Propionate (Flonase) 1 sprays NA PM [facility] Stop: 12/31/18 20:59 Last Admin: 12/03/18 20:32 Dose: 1 sprays Documented by: Levofloxacin (Levaquin) 750 mg PO Q24H [facility] Stop: 12/05/18 21:59 Last Admin: 12/03/18 20:31 Dose: 750 mg Documented by: Linaclotide (Linzess) 72 mcg PO DAILY@0700 [facility] Stop: 12/29/18 08:29 Last Admin: 12/04/18 06:38 Dose: 72 mcg Documented by: Lorazepam (Ativan) 0.5 mg PO BID PRN PRN Reason: Anxiety Stop: 01/01/19 17:27 Last Admin: 12/03/18 20:37 Dose: 0.5 mg Documented by: Montelukast Sodium (Singulair) 10 mg PO HS [facility] Stop: 12/29/18 08:59 Last Admin: 12/03/18 20:30 Dose: 10 mg Documented by: Pantoprazole Sodium (Protonix) 40 mg PO DAILY@0700 [facility] Stop: 12/30/18 07:29 Last Admin: 12/04/18 06:38 Dose: 40 mg Documented by: Polyethylene Glycol (Miralax Powder Packet) 17 gm PO DAILY PRN PRN Reason: Constipation Stop: 12/28/18 19:41 Prednisone (Prednisone) 40 mg PO DAILY [facility] Stop: 01/03/19 08:59 Last Admin: 12/04/18 10:05 Dose: 40 mg Documented by: Rosuvastatin Calcium (Crestor) 20 mg PO [facility] Stop: 12/29/18 08:59 Last Admin: 12/03/18 20:31 Dose: 20 mg Documented by: Sennosides (Senokot) 17.2 mg PO BID [facility] Stop: 12/28/18 20:59 Last Admin: 12/04/18 07:39 Dose: 17.2 mg Documented by: Sodium Chloride (Sodium Chlor 7% Neb Solution) 4 ml INH BIDR [facility] Stop: 01/01/19 19:59 Last Admin: 12/04/18 07:16 Dose: 4 ml Documented by: Tamsulosin HCl (Flomax) 0.4 mg PO QPM [facility] Stop: 12/28/18 20:59 Last Admin: 12/03/18 20:32 Dose: 0.4 mg Documented by: Trazodone HCl (Desyrel) 75 mg PO [facility] Stop: 01/01/19 20:59 Last Admin: 12/03/18 20:31 Dose: 75 mg Documented by: Venlafaxine HCl (Effexor Extended Release) 150 mg PO DAILY [facility] Stop: 12/29/18 08:59 Last Admin: 12/04/18 07:39 Dose: 150 mg Documented by:
[2018-12-03] MEDS: MONTELUKAST SODIUM 10 MG TABLET PO SCH (20:30)
[2018-12-03] MEDS: TRAZODONE HCL 50 MG TAB PO SCH (20:31)
[2018-12-03] MEDS: levoFLOXacin 750 MG TAB PO SCH (20:31)
[2018-12-03] MEDS: ROSUVASTATIN CALCIUM 20 MG TAB PO SCH (20:31)
[2018-12-03] MEDS: FLUTICASONE PROPIONATE NA SPR 16 GM BTL SCH (20:32)
[2018-12-03] MEDS: TAMSULOSIN HCL 0.4 MG CAP PO SCH (20:32)
[2018-12-03] MEDS: LORazepam 0.5 MG TAB PO PRN (20:37)
[2018-12-03] MEDS ORDERED: predniSONE 20 MG TAB PO STA (20:46)
[2018-12-04] MEDS: PANTOprazole 40 MG TAB PO SCH (06:38)
[2018-12-04] MEDS: LINACLOTIDE 72 MCG CAPSULE PO SCH (06:38)
[2018-12-04] MEDS: ALBUT/IPRATROP 3MG/0.5MG NEB 3 ML VIAL NEB SCH ×2 (07:16→10:31)
[2018-12-04] MEDS: SODIUM CHLOR 7% 4 ML NEB INH SCH (07:16)
[2018-12-04] MEDS: ENOXAPARIN INJ 40 MG/0.4 ML SYR SQ SCH (07:38)
[2018-12-04] MEDS: CYANOCOBALAMIN 500 MCG TABLET (VITAMIN B-12) PO SCH (07:39)
[2018-12-04] MEDS: SENNA 8.6 MG TAB PO SCH (07:39)
[2018-12-04] MEDS: VENLAFAXINE HCL XR 150 MG CAPXR PO SCH (07:39)
[2018-12-04] MEDS: ASCORBIC ACID 500 MG TAB PO SCH (07:39)
[2018-12-04] MEDS: CALCIUM CARBONATE 1250MG TAB PO SCH (07:40)
[2018-12-04] MEDS: methylPREDNISolone 40 MG in SYRINGE 0 ML IV SCH (07:41)
[2018-12-04] MEDS ORDERED: predniSONE 20 MG TAB PO SCH (09:00)
--- NOTE | 2018-12-04 10:32 | Discharge Summary ---
Date of Service December 04, 2018 Admission HPI Per Admitting Provider Patient is a 73-year-old female with known history of COPD on nocturnal oxygen who presents with 4 days of cough and worsening shortness of breath. She reports going to [place] for 5 weeks and recently drove home within the last week with her friend who became ill with a febrile respiratory illness at the end of the trip. Within the next couple of days the patient developed the similar symptoms. She reports a cough productive of greenish sputum, 1 day of fever and sweating which has passed. Some sinus pressure and ear pressure with generalized weakness which also had past. She does report wheezing. She states that she was feeling better but then had a exposure outside in the cold while trying to lift a friend from the snow who had fallen. She takes azithromycin 3 times a day for COPD. She uses duo nebs at home 1-2 times daily, she is also on Advair 50/500 twice daily, Singulair 10, as needed Mucinex D. She is seen at pulmonology at [facility]. She reports multiple respiratory infections over t his last winter and had several courses of steroids. She currently has no conversational dyspnea on 3 L nasal cannula. She is no acute respiratory distress at this time. Admission Exam Per Admitting Provider Temp 37.4 C 11/28/18 15:11 Pulse 105 H 11/28/18 18:10 Resp 20 11/28/18 18:10 BP 187/99 H 11/28/18 17:56 Pulse Ox 96 11/28/18 18:10 CONSTITUTIONAL: WNWD, vitals as above, generally well-appearing EYES: PERRL, normal conjuctivae, no scleral icterus ENT: oropharynx clear, no maxillary or ethmoid sinus tenderness, tongue clear NECK: trachea midline, no lymphadenopathy RESPIRATORY: significant wheezing throughout all lung heredia. Coarse rhonchi superimposed diffusely CARDIOVASCULAR: regular rate and rhythm, S1 and 2 heard without murmurs, gallops or rubs, no JVD, no peripheral edema GASTROINTESTINAL: normal bowel sounds, soft, nontender, nondistended MUSCULOSKELETAL: strength 5/5 throughout, head is normocephalic and atraumatic SKIN: warm and dry NEUROLOGIC: CN 2-12 grossly intact, normal cognition, normal speech PSYCHIATRIC: alert cooperative and oriented to person, place and time. Principal Diagnosis COPD exacerbation 2/2 pneumonia Discharge Data Allergies Allergy/AdvReac Type Severity Reaction Status Date / Time No Known Allergies Allergy Unverified 11/28/18 20:15 Consultations 11/28/18 18:16 ED Decision to Admit Stat 11/28/18 19:42 Consult Case Management - Discharge Planning Routine 12/01/18 17:23 Consult Pulmonology Routine Ordered Studies 11/28/18 16:58 CT angio chest PE protocol Stat Hospital Course (1) Pneumonia: (2) COPD exacerbation: (3) Hypoxia: (4) Smoker: (5) Depression: (6) Chronic constipation: 73-year-old female with history of COPD on nocturnal oxygen at baseline presented with 4 days of cough and worsening shortness of breath. This was following a trip to [place] where she spent 5 weeks and recently drove home within the last week. She was exposed to her friend who became ill with a febrile respiratory illness at the end of the trip. Her friend had also passed this to her . She was admitted to the Hospitalist service for treatment of COPD exacerbation secondary to pneumonia. She was started on Levaquin, scheduled nebulizer treatments and Solu-Medrol IV 40 mg every 8 hours. She was requiring 3 L of oxygen via nasal cannula rather consistently for a couple of days and wheezing persisted initially. Pulmonology was consulted on hospital day 4 and recommended additional labs be sent out to check for Aspergillus or other fungal infections based on multiple tree-in-bud and lower lobe opacities present on CT imaging. These were pending at time of discharge. Saline nebulizer treatments and a flutter valve were added to her regimen as well as daily chest physiotherapy. She began to improve over the next 2 days, and by day of discharge, despite some wheezing that was still present, she had clinically improved, was ambulating around the room without oxygen on on and was feeling well clinically. She was requesting to go home to greet her daughter who was coming into town this week. A two-step test was performed revealing the need for 2 L of oxygen supplementation with ambulation only. She will continue on a prednisone taper as outpatient and will need to follow-up with pulmonology as outpatient. She already has oxygen and other supplies because of her need at night for this. She was sent home with a new oxygen prescription for 2 L with ambulation and night expect she will not need this longer than the next couple of weeks. Close primary care follow-up was recommended. On physical exam on day of discharge she had some mild wheezing throughout the lungs in all heredia that was improved. She was coughing less and feeling well clinically. Physical exam was otherwise unremarkable. She was hemodynamically stable and afebrile and was ambulating at baseline. Other noteworthy things in the hospitalization including multiple pulmonary nodules measuring up to 7 mm seen on the CT scan which will need to be followed on a non-urgent basis. She was also noted to have a compression fracture of T12 on CT scan which was new since 2012. This was thought to be chronic in nature and she did not have any back pain reported. These will need to be followed up by primary care doctor. Total Time Total Time Spent Total Time Spent (In Minutes): 60 Total Time Includes: Examination of the Patient, Discharge Planning, Medication Reconciliation and Communication With Other Providers Discharge Plan Discharge Items Patient Disposition: Home - Self-Care Reason For Visit: HYPOXIA Discharge Diagnosis: COPD exacerbation 2/2 pneumonia Hypoxia-improved Condition: Good Discharge Goals: Decrease discomfort and Improve disease control Activity: Resume your previous activity Non-emergency contact: Primary Care Provider Call non-emergency contact if: you have any medication questions, your symptoms worsen, your pain is not controlled, your pain is worsening, your pain is unusual for you, your pain is concerning for you and you have a fever Follow-up/Referrals: Caesar Carrasco MD [Physician] - Kenzie Feliciano MD [Primary Care Provider] - Diet: Regular Addtl Provider Instructions: Please take all medications as instructed on discharge list below. It is recommended that you follow-up with Dr. Adrian Carrasco at [facility] Pulmon[facility] as a follow-up to this hospitalization. You have a hospital follow-up appointment with Dr. Feliciano on 12/07 at 12:45. Please bring all paperwork from this hospitalization to the appointment. You were found to have pulmonary nodules as an incidental finding on your CT scan while admitted. These will need to be nonurgently followed up by your primary care provider. 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 This can all be further discussed with your primary care provider on follow-up. It was a pleasure taking care of you! Please call if you have any questions or problems. You can reach a [facility] hospitalist on duty at [facility] 24 hours a day by calling [phone]. Take care of yourself. Qian Lazar DO [facility] Hospitalist Prescriptions: New prednisone 10 mg tablet 10 mg PO UD Qty: 50 RF: 0 Continued fluticasone propionate 50 mcg/actuation spray,suspension 2 spry Intranasal DAILY RF: 0 ipratropium-albuterol 0.5 mg-3 mg(2.5 mg base)/3 mL Solution For Nebulization 3 ml INHALATION QID PRN (Reason: Shortness Of Breath Or Wheezing) RF: 0 montelukast 10 mg tablet 10 mg PO DAILY RF: 0 albuterol sulfate [Ventolin HFA] 90 mcg/actuation HFA aerosol inhaler 2 puff Inhalation Q4H PRN (Reason: Wheezing) RF: 0 pantoprazole 40 mg tablet,delayed release (DR/EC) 40 mg PO QAM RF: 0 sennosides [senna] 8.6 mg Tablet 17.2 mg PO BID RF: 0 cetirizine 10 mg Tablet 10 mg PO DAILY PRN (Reason: Allergy Symptoms) RF: 0 buspirone 5 mg tablet 5 mg PO DAILY RF: 0 tamsulosin 0.4 mg capsule 0.4 mg PO QPM RF: 0 Linzess 72 mcg capsule 72 mg PO QAM RF: 0 fluticasone propion-salmeterol [Advair Diskus] 500-50 mcg/dose Blister With Device 1 inh INHALATION BID RF: 0 rosuvastatin 20 mg tablet 20 mg PO DAILY RF: 0 aspirin [Aspir-81] 81 mg Tablet,Delayed Release (Dr/Ec) 81 mg PO Q2D RF: 0 Spiriva with HandiHaler 18 mcg Capsule, W/Inhalation Device 1 cap INHALATION DAILY RF: 0 venlafaxine 150 mg Tablet Extended Release 24hr 150 mg PO DAILY RF: 0 calcium carbonate [Calcium 500] 500 mg calcium (1,250 mg) Tablet 500 mg PO TID RF: 0 polyethylene glycol 3350 [Miralax] 17 gram/dose Powder 17 g PO DAILY RF: 0 ascorbic acid (vitamin C) 1,000 mg Tablet 1,000 mg PO DAILY RF: 0 Multiple Vitamin, Womens 1 tab PO DAILY RF: 0 bupropion HCl 100 mg tablet sustained-release 12 hr 100 mg PO QAM RF: 0 cyanocobalamin (vitamin B-12) 1,000 mcg Tablet 1,000 mcg PO DAILY RF: 0 trazodone 50 mg tablet 75 mg PO HS PRN (Reason: Insomnia) RF: 0 Discontinued azithromycin 250 mg tablet 250 mg PO UD RF: 0 Stand-Alone Forms: [facility] Discharge Orders: Discharge Order (Routine); Ordered 12/04/18 Ordered By: Qian Lazar Admission Data Admit Date/Time: 11/28/18 18:58 Attending Provider: Qian Lazar Admit Provider: Qian Lazar Primary Care Provider: Kenzie Feliciano Other Providers: Qian Lazar ; Caesar Carrasco ; Reynold Cordero ; Tsering Mcdaniel ; Marlon Burkett Jessica L. ; Ishmael Aleman ; Maya Flaherty ; Meño Moncada ; Venice Kim ; Lara Negron ; Joe Fink ; Kostas Bernabe Service: Medical
[2018-12-07 18:12] LABS: Aspergillus Antigen, Serum Not Detected (Not Detected); Aspergillus Flavus Negative (Negative); Aspergillus Niger Negative (Negative); Legionella pneumoph IgM, IFA <1:256 TITER; Mycoplasma pneumoniae Ab, IgG 4.55 (<=0.90); Mycoplasma pneumoniae Ab, IgM 6 U/mL (<770)
== END 2018-12-04 12:39 | disposition home or self-care (01) | DRG 190 ==
LOC: ED 14:50 → 2S 18:58 → 2E 11-29 11:41 → 2S 12-02 13:04 → 4E 12-02 17:30

== ENCOUNTER 2019-01-03 11:57 | Observation (INO) ==
[2019-01-03] MEDS: SODIUM CHLORIDE 0.9% 1000ML 1,000 ML IV SCH (13:05)
--- NOTE | 2019-01-03 13:07 | History & Physical Bridge Note ---
Date of Service January 03, 2019 History & Physical Bridge Note I have examined the patient, reviewed the History & Physical and in the interval since the performance of the History & Physical I have noted the following changes of clinical significance: no changes noted
--- NOTE | 2019-01-03 13:08 | Pre Anesthesia Assessment ---
Date of Service January 03, 2019 Pre Sedation Assessment Vital Signs Temp Pulse Resp BP Pulse Ox 01/03/19 12:36 36.5 C 91 H 18 153/81 H 95 Cardiovascular RRR, no murmur, no edema + peripheral pulses normal Respiratory normal respiratory effort, lungs clear to auscultation Pre-Sedation Airway Assessment Smoking Status: Never smoker Hx Sleep Apnea: No Hx Difficult Intubation: No Short, Thick Neck: No Thyromental Distance: > or= 3.5 Finger Breadths Oral Cavity: + WNL Mallampati Class: II ASA: ASA2 Procedure Planning Contraindications for Sedation: none Current Medications Reviewed: Yes Notes The planned sedation has been discussed with the patient. Informed Consent was obtained. I have identified the patient, determined the appropriateness of sedation and have assessed the patient immediately prior to the procedure. All medicine(s) and interventions are by my order.
[2019-01-03 13:13] LABS: Prothrombin Time 10.6 Seconds (9.0-12.0)
[2019-01-03] MEDS ORDERED: SODIUM CHLORIDE 0.9% 1000ML 1,000 ML IV SCH (13:15)
[2019-01-03] MEDS ORDERED: LEVALBUTEROL HCL 1.25 MG/3 ML NEB NEB STA (13:51)
[2019-01-03] MEDS ORDERED: fentaNYL citrate 100 MCG/2 ML VIAL IV ONE (13:51)
[2019-01-03] MEDS ORDERED: LIDOCAINE HCL VISCOUS SOLN 2% 15 ML UDC MT ONE (13:51)
[2019-01-03] MEDS ORDERED: OXYMETAZOLINE 0.05% 30 ML BTL ONE (13:51)
[2019-01-03] MEDS ORDERED: LIDOCAINE 4% INH SOLN 4 ML BTL INH ONE (13:51)
[2019-01-03] MEDS ORDERED: LIDOCAINE HCL 2% (LOCAL) INJ 50 ML VIAL INFIL ONE (13:52)
[2019-01-03] MEDS ORDERED: MIDAZOLAM HCL 1 MG/ML 2ML VIAL IV ONE (13:54)
--- NOTE | 2019-01-03 14:10 | Post Anesthesia Assessment ---
Date of Service January 03, 2019 Post Sedation Assessment Vital Signs Temp Pulse Pulse Resp BP Pulse Ox 01/03/19 14:00 91 H 17 146/65 H 100 01/03/19 13:55 93 H 18 131/68 100 01/03/19 13:50 89 16 135/69 97 01/03/19 13:45 96 H 17 142/70 H 97 01/03/19 13:40 99 H 18 152/72 H 97 01/03/19 13:35 94 H 17 130/62 97 01/03/19 13:30 91 H 16 144/74 H 98 01/03/19 13:25 89 17 136/74 100 01/03/19 13:15 90 18 131/77 98 01/03/19 12:55 91 H 16 136/62 97 01/03/19 12:36 36.5 C 91 H 18 153/81 H 95 Recovery Score Activity: Moves 4 extremities Respiration: Deep Breath/Cough Circulation: +/-20% PreAnes Value Consciousness: Fully Awake Oxygen Saturation: O2 needed for >90% Post Anesthesia Score: 9 Discharge Sedation Level of Care: Higher Level of Care Post Sedation Plan On clinical assessment, the patient appears to have tolerated the sedation without complications. Patient is recovering as anticipated. Patient will continue to be monitored by nursing and may be discharged when sedation discharge criteria are met per below protocol. Upon Completions of procedure and additional 15 minutes continue every 5 minute vital signs and the P.A.R. score; then discharge to a Phase I or Fast Track to Phase II per the following guidelines: * Discharge Patient to appropriate Phase II area if PAR is 8 or greater or ret urn to pre- procedure baseline. The post - procedure orders will be as directed. * If PAR score is less than 8 or not return to pre-procedure baseline then patient will follow Phase I monitoring till PAR is reached for Phase II. The Phase I may be done in procedure room or may call to secure a Phase I area. * If naloxone or flumazenil are used for reversal, hold in Phase I for continued monitoring from when last reversal dose was given for a minimum of 60 minutes or longer pending the nurse and/or physician discretion of patient condition before discharge to Phase II. Please call the Sedation Physician to re-evaluate and complete post-note for discharge to Phase II area. Do NOT discharge from procedure sedation or Phase 1 until post- sedation evaluation note is complete by procedure /sedation MD Sedation Discharge Instructions to be given to the patient at discharge to home.
--- NOTE | 2019-01-03 14:15 | Post Operative Brief Note ---
Immediate Post Op Note v1 Date of Surgery January 03, 2019 Pre & Post Diagnosis Operation Date: 01/03/19 13:00 Pre-Op Diagnosis: LUNG MASS Post-Op Diagnosis: LUNG MASS /Chronic Mucopurulent Bronchitis Procedure Operation Date: 01/03/19 13:00 Actual Procedures p Bronchoscopy Radiology(Bilateral) - Caesar Carrasco MD Surgeon Caesar Carrasco MD Peer Support Specialist none Estimated Blood Loss 0 Findings Consistent with Post-Op Diagnosis Hemoptysis/Lung Mass/Chronic Mucopurulent Bronchitis Complications none Disposition Accompanied Patient To Recovery: No Overlapping Procedure I was present for: the critical portions of procedure. I was immediately available: during the entire case. Back up surgeon: was not required during procedure.
[2019-01-03] MEDS ORDERED: POLYETHYLENE (MIRALAX) 17 GM PACK PO PRN ×2 (15:40→16:01)
[2019-01-03] MEDS ORDERED: ONDANSETRON INJ 2 MG/ML 2 ML VIAL IV PRN (15:40)
[2019-01-03] MEDS ORDERED: ACETAMINOPHEN 325 MG TAB PO PRN (15:40)
--- NOTE | 2019-01-03 15:48 | History & Physical Report ---
Date of Service January 03, 2019 Assessment & Plan (1) COPD (chronic obstructive pulmonary disease): Lung Mass/Mucopurulent Bronchitis Hemoptysis H/O COPD H/O BOOP Chronic respiratory failure with Hypoxia Recent COPD Exacerbation/Pneumonia S/P Bronchoscopy 01/03/19 by Needs repeat bronchoscopy in the OR tomorrow Bronchial washing Studies: Pending Blood cultures obtained Consulted Pulmnology and CT surgery Empirically Start on Zosyn Start on Duonebs, Solumedrol Continue home inhalers Oxygen support PRN CXR/Labs currently pending NPO after midnight Oral Thrush: Continue Nystatin Tobacco Use Disorder Patient states that she quit smoking 3 weeks ago Depression Generalized anxiety disorder Continue Buspar, Trazodone GERD Continue PPI Hyperlipidemia, Continue Crestor DVT Px: SCDs Re: Hemoptysis Code Status Full Code Disposition: Expect to discharge home when stable History of Present Illness Chief Complaint: Lung Mass Primary Care Provider: Kenzie Feliciano MD Patient is a 73-year-old female with history of COPD on chronic oxygen, depression, generalized anxiety disorder, BOOP, hyperlipidemia, tobacco use disorder, 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 Carrasco for hemoptysis and lung mass. Patient was recently discharged from [facility] after being treated for COPD exacerbation secondary to pneumonia. Patient had an elective bronchoscopy today by Dr. Carrasco and was found to have lung mass/mucopurulent bronchitis. Patient needs repeat bronchoscopy in the OR tomorrow. Patient states having cough with greenish expectoration since 2 days duration. Reports associated shortness of breath which she feels like chest tightness. She had low-grade fever 2 days ago. Also had minimal hemoptysis. She believes she lost about 2 pounds in 1 month duration. Denies any history of chest pain, dizziness, headache, nausea, vomiting, abdominal pain, diarrhea, change in appetite, dysuria, hematuria. She states that he quit smoking 3 weeks ago. Allergies Allergy/AdvReac Type Severity Reaction Status Date / Time No Known Allergies Allergy Verified 01/03/19 12:24 Home Medications Home Medications Medication Instructions Recorded Confirmed Type Linzess 72 mg PO QAM 11/28/18 01/03/19 History Spiriva with HandiHaler 1 cap INHALATION QAM 11/28/18 01/03/19 History albuterol sulfate [Ventolin HFA] 2 puff INHALATION Q4H PRN 11/28/18 01/03/19 History ascorbic acid (vitamin C) 1,000 mg PO QAM 11/28/18 01/03/19 History buspirone 5 mg PO BID 11/28/18 01/03/19 History calcium carbonate [Calcium 500] 500 mg PO TID 11/28/18 01/03/19 History cetirizine 10 mg PO DAILY PRN 11/28/18 01/03/19 History cyanocobalamin (vitamin B-12) 1,000 mcg PO QAM 11/28/18 01/03/19 History fluticasone propion-salmeterol 1 inh INHALATION BID 11/28/18 01/03/19 History [Advair Diskus] fluticasone propionate 2 spry INTRANASAL HS 11/28/18 01/03/19 History ipratropium-albuterol 3 ml INHALATION QID PRN 11/28/18 01/03/19 History montelukast 10 mg PO HS 11/28/18 01/03/19 History pantoprazole 40 mg PO QAM 11/28/18 01/03/19 History polyethylene glycol 3350 [Miralax] 17 g PO QAM PRN 11/28/18 01/03/19 History rosuvastatin 20 mg PO HS 11/28/18 01/03/19 History sennosides [senna] 17.2 mg PO BID PRN 11/28/18 01/03/19 History trazodone 75 mg PO HS PRN 11/28/18 01/03/19 History venlafaxine 150 mg PO QAM 11/28/18 01/03/19 History lorazepam 0.25 mg PO DAILY PRN 12/31/18 01/03/19 History eqxbvfshmknj-Jl-raly-minerals 1 tab PO QAM 12/31/18 01/03/19 History [Women's Daily Formula] nystatin 1 dose BUCCAL QID 12/31/18 01/03/19 History Past Med/Surg History Medical History Asthma Basal cell carcinoma (BCC) COPD (chronic obstructive pulmonary disease) inhalers daily/prn KURTIS (generalized anxiety disorder) GERD (gastroesophageal reflux disease) H/O compression fracture of spine Hiatal hernia History of anesthesia reaction felt bronchoscopy procedure History of colon polyps Hyperlipidemia On home oxygen therapy o2 @ 2L N/C hs and prn Osteoarthritis 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, jaw Osteoporosis Recurrent major depression Scoliosis Slow transit constipation Smoker Squamous cell carcinoma Surgical History History of Mohs micrographic surgery for skin cancer History of abdominoplasty History of arthroplasty of right hip History of bilateral cataract extraction History of bronchoscopy x1, and now scheduled for another 01/03/19 History of colonoscopy History of detached retina repair right eye History of dilatation and curettage History of esophagogastroduodenoscopy (EGD) History of gynecologic surgery benign uterine cyst removal History of left oophorectomy History of open reduction and internal fixation (ORIF) procedure right hip History of repair of left rotator cuff History of repair of right rotator cuff History of thumb surgery left History of tonsillectomy and adenoidectomy History of wisdom tooth extraction Family History Mother Family hx of colon cancer Other Family history non-contributory No family history of adverse response to anesthesia Social History Preferred Language: Kyrgyz Communication Ability: Effective Windows Migration Technician Required: No Beliefs That Will Affect Care: None Current Living Situation: Alone Current Living Situation Comment: Lives in the independent side of the [facility] Other Information That Helps Us Care for You: No Feels Safe at Home: Yes Safety Concerns: Feels Safe At This Time Smoking Status: Never smoker Tobacco Type: cigarettes Do You Dip or Chew Tobacco: No Second Hand Exposure: No Hx Alcohol Use: No Hx Substance Use: Yes substance use type: tranquilizers and sedatives Review of Systems Review of Systems: All systems reviewed & are unremarkable except as noted in HPI & below Physical Exam Physical Exam: Physical Exam: Vitals signs as noted above General Appearance:Chronic ill appearing, no apparent distress Head: normocephalic, Atraumatic, +Oral Thrush Eyes: normal inspection, EOMI Neck: supple, Trachea midline Respiratory/Chest: Decreased breath sounds, scattered rhonchi, no accessory muscle use Cardiovascular: S1, S2, No murmur Abdomen/GI:Soft, Non tender, Bowel sounds present Extremities/Musculoskelatal:normal inspection, Trace edema Neurologic/Psych:AAOX3, grossly no focal neurological deficits Skin: normal color, warm Results & Data Vital Signs (Past 12 Hours) Vital Signs Temp Pulse Pulse Resp BP Pulse Ox 01/03/19 14:10 88 18 169/60 H 100 01/03/19 14:00 91 H 17 146/65 H 100 01/03/19 13:55 93 H 18 131/68 100 01/03/19 13:50 89 16 135/69 97 01/03/19 13:45 96 H 17 142/70 H 97 01/03/19 13:40 99 H 18 152/72 H 97 01/03/19 13:35 94 H 17 130/62 97 01/03/19 13:30 91 H 16 144/74 H 98 01/03/19 13:25 89 17 136/74 100 01/03/19 13:15 90 18 131/77 98 01/03/19 12:55 91 H 16 136/62 97 01/03/19 12:36 36.5 C 91 H 18 153/81 H 95 Labs: currently pending CXR:Pending Will review when available
[2019-01-03] MEDS ORDERED: CETIRIZINE HCL 10 MG TABLET PO PRN (16:01)
[2019-01-03] MEDS ORDERED: LORazepam 0.5 MG TAB PO PRN (16:01)
[2019-01-03] MEDS ORDERED: SENNA 8.6 MG TAB PO PRN (16:01)
[2019-01-03] MEDS: ALBUT/IPRATROP 3MG/0.5MG NEB 3 ML VIAL NEB SCH ×2 (16:35→21:49)
[2019-01-03] MEDS ORDERED: PIPERACILL/TAZOBAC CONSULT ACTIVE PRN (17:32)
[2019-01-03] MEDS ORDERED: PIPERACILLIN/TAZOBACTAM 3.375 GM in DEXTROSE 5% 100 ML IV ONE (18:30)
[2019-01-03] MEDS: methylPREDNISolone 40 MG in SYRINGE 0 ML IV SCH (19:05)
[2019-01-03 19:51] LABS: Basophils # (auto) 0.01 K/uL (0-0.2); Basophils % (auto) 0.2 %; Eosinophils # (auto) 0.06 K/uL (0-0.5); Eosinophils % (auto) 0.9 %; Hematocrit (blood only) 33.8 % (37-47); Hemoglobin 10.8 g/dL (12.0-16.0); Immature Granulocytes # (auto) 0.01 K/uL (0.00-0.02); Immature Granulocytes % (auto) 0.2 %; Lymphocytes # (auto) 1.41 K/uL (1.2-3.4); Lymphocytes % (auto) 21.2 %; Mean Corpuscular Volume 96.8 fL (80-100); Mean Platelet Volume 8.3 fL (7.4-10.4); Monocytes # (auto) 0.77 K/uL (0.11-0.59); Monocytes % (auto) 11.6 %; Neutrophils # (auto) 4.38 K/uL (1.4-6.5); Neutrophils % (auto) 65.9 %; Platelet Count 253 K/uL (130-400); RDW Coefficient of Variation 14.6 % (11.5-14.5); RDW Standard Deviation 51.9 fL (36.4-46.3); Red Blood Count 3.49 M/uL (4.2-5.4); White Blood Count 6.64 K/uL (4.8-10.8)
[2019-01-03 20:03] LABS: INR 1.1 (0.9-1.1); Prothrombin Time 10.8 Seconds (9.0-12.0)
[2019-01-03 20:07] LABS: Albumin Level 2.9 gm/dl (3.4-5.0); BUN Creatinine Ratio 16.4 (10-20); Calcium 8.1 mg/dl (8.5-10.1); Creatinine Clr Calc Pharmacy 54.3 ml/min; Est GFR (African American) 94.7; Est GFR (Non-African American) 81.7; Potassium 3.4 mmol/L (3.5-5.1)
[2019-01-03 20:10] LABS: Bilirubin,Total 0.3 mg/dl (0.2-1); Globulin 2.9 gm/dl (2.5-4.0); Total Protein 5.8 gm/dl (6.4-8.2)
[2019-01-03] MEDS ORDERED: POTASSIUM CHLORIDE 10 MEQ TABCR PO STA (20:19)
[2019-01-03] MEDS: ROSUVASTATIN CALCIUM 20 MG TAB PO SCH (21:27)
[2019-01-03] MEDS: FLUTICASONE PROPIONATE NA SPR 16 GM BTL SCH (21:27)
[2019-01-03] MEDS: MONTELUKAST SODIUM 10 MG TABLET PO SCH (21:27)
[2019-01-03] MEDS: NYSTATIN SUSP 500,000 U/5 ML UDC BUCCAL SCH (21:27)
[2019-01-03] MEDS: FLUTICASONE/SALMETEROL (ADVAIR) 500/50 INH 14 PUFF INH SCH (21:27)
--- NOTE | 2019-01-03 21:32 | XRay Report ---
XR chest 2V routine CLINICAL HISTORY: COPD, Lung mass COMPARISON STUDY: Chest x-ray dated 12/20/2018 FINDINGS: There is radiographic evidence of emphysema. Cardiac and mediastinal contours remain stable . There is no acute parenchymal consolidation. There is scattered areas of linear scarring similar to the preceding study.[ IMPRESSION: Pulmonary emphysema. No acute findings. Electronically signed by: Davide Lu M.D. 01/03/2019 9:31 PM
[2019-01-03] MEDS: TRAZODONE HCL 50 MG TAB PO PRN (21:48)
[2019-01-03 22:23] LABS: Appearance Urine Clear (Clear); Bilirubin Urine Negative (Negative); Blood Urine Negative (Negative); Color Urine Yellow; Glucose Urine UA Negative (Negative); Ketones Urine Negative (Negative); Leukocyte Esterase Urine Negative (Negative); Nitrite Urine Negative (Negative); Protein Urine Negative (Negative); Specific Gravity Urine 1.014 (1.000-1.030); Urobilinogen Urine Negative (Negative)
[2019-01-04] MEDS: PIPERACILLIN/TAZOBACTAM 3.375 GM in DEXTROSE 5% 100 ML IV SCH ×3 (01:25→20:20)
--- NOTE | 2019-01-04 02:27 | Operative Report ---
DATE OF OPERATION: 01/03/2019 PROCEDURE: Fiberoptic bronchoscopy with without biopsy. INDICATIONS: Bronchopneumonia/COPD persistent symptoms. ANESTHESIA PREOPERATIVELY: None. ANESTHESIA DURING PROCEDURE: IV fentanyl 50 mcg, IV Versed 4 mg, 20 mL 2% Xylocaine spray above and below the cords, 4% viscous Xylocaine intranasally. PROCEDURE: Moderate conscious sedation was begun at 1329 and completed at 1345. Fiberoptic bronchoscope was inserted into the right naris with minimal difficulty and passed to the level of true vocal cords. The cords appear to approximate normally with phonation without evidence for lesions or paralysis. The scope was then introduced to the right and left tracheobronchial tree. The trachea was within normal limits. The gillian was intact. The right tracheobronchial tree was explored and thick mucopurulent and mucoviscous secretion was lavaged from virtually all lobar segments until clear. Right upper lobe, the apical posterior, anterior segments, bronchus intermedius, right middle lobe and the medial lateral segments and all basilar segments of right lower lobe were found to be free of endobronchial lesions. After copiously lavaging all lobar and segmental bronchi and send the aspirate for appropriate studies, the scope was withdrawn to the gillian and the left mainstem bronchus was evaluated. Thick mucoviscous secretion was seen virtually occluding the left main stem bronchus, normal saline was instilled and the aspirate collected and immediately visible was "a lesion" that was exophytic, appeared to be occluding the left upper lobe and lingula orifice and protruding into the left mainstem bronchus. It was bleeding at a moderate pace. The area was instilled with iced saline and the bleeding appeared to stop. The left lower lobe could not be fully visualized. The entire left tracheobronchial tree was involved with old hemorrhage and dry blood in addition to the new hemorrhage from this lesion. The patient became hypoxemic and tachycardic and a decision was made to remove the scope after instilling additional iced saline. The patient is stabilized hemodynamically with no signs of respiratory compromise, but a decision was made not to attempt brushing or biopsy at this juncture. The patient was transferred back to [facility] hemodynamically stable with no further signs of respiratory compromise. The patient was given a nebulizer treatment with Xopenex 1.25 mg prior to transfer back to [facility]. A decision was made to admit the patient at least overnight on to the hospitalist service, Dr. Isa Boyd was contacted. I also asked that a consultation be placed to Dr. Ishmael Bowers from Thoracic Surgery to schedule patient for bronchoscopy while intubated, receiving mechanical ventilator assistance and utilizing general anesthesia tomorrow so that additional tissue from this lesion can be obtained and with control of her airway and possibly use and requirement of a cryoprobe for the procedure. I attest to the content of the Intraoperative Record and any orders documented therein. Any exception s are noted below.
[2019-01-04] MEDS: methylPREDNISolone 40 MG in SYRINGE 0 ML IV SCH ×3 (02:52→20:18)
--- NOTE | 2019-01-04 03:25 | Consultation Report ---
DATE OF CONSULTATION: 01/03/2019 PULMONARY MEDICINE CONSULTATION REASON FOR CONSULTATION: COPD exacerbation/left upper lobe mass/hemoptysis. HISTORY OF PRESENT ILLNESS: A 73-year-old white female who I initially saw in consultation during her hospitalization on 12/02/2018, underwent outpatient bronchoscopic intervention today. In addition to thick mucoviscous secretion suctioned from the right tracheobronchial tree (see bronchoscopy report), a left upper lobe protruding exophytic mass/lesion was seen that was hemorrhagic. Tissue was not obtained due to the hemorrhage and a decision was made to admit her at least overnight, placed on vigorous pulmonary toilet, make her n.p.o. after midnight and consider consultation with Dr. Ishmael Bowers/thoracic surgery to have repeat bronchoscopy tomorrow in the OR, receiving general anesthesia, intubated and receiving mechanical ventilator assistance. Biopsies can be attempted possibly with the use of a cryoprobe while the airway is secure and an additional tissue was obtained. The patient is on oxygen at 2 liters at night and p.r.n. during the day and [facility]. She was admitted to the hospitalist service on 12/15/2018. She was in [place] for 5 weeks, drove home with a friend, but developed an upper respiratory infection according to her history. She stayed overnight in [place], then came home, became extremely dyspneic and congested and her also got ill. The patient had fever, was diaphoretic and sinus symptoms and a progressive cough. She was using nebulizer at home with bronchodilator and had been on Advair Diskus inhaler 500/50 one puff b.i.d. along with Singulair and Mucinex D. She is followed by Dr. Feliciano in a midlevel with the [facility] and apparently saw a sales developer in [place] who concurred with her therapy. She has had multiple courses of antibiotics and prednisone this winter and was treated for a "fungal infection" of the lung which took several months to improve before she went down to [place] and seem to have done better. She continues to smoke a few cigarettes a day up until 9 days prior to this last hospitalization and began in her late teens and early 20s of at least a pack of cigarettes a day. She has 2 children, 1 who lives in [place] and the other in [place] and was visiting the child in [place] before going down to [place] this winter. She suffers from generalized anxiety and compression fracture of the spine, osteonecrosis of the jaw from treatment of the osteoporosis and is a chronic smoker. She has been evaluated by Dr. Amadou Roberts in the past and did apparently undergo bronchoscopy several years ago. She was given a diagnosis of BOOP at one time and had been on prednisone at 50 mg for three months during that time. The records from [facility] are not available to me. She has exhibited some mild hemoptysis in the recent past. The patient was weaned from her prednisone and discharged on oral antibiotics. Additional serology was obtained during the last hospitalization and 7% normal saline was added to her regimen. I was to see her in followup and she saw Ridge Cordero our physician public health assistant on 12/06/2018. He started her back on Levaquin because of her persistent symptoms and she was urged to use her oxygen continuously. She was unable to bring up the mucus and he scheduled her for bronchoscopic evaluation. She is scheduled for colonoscopy and upper endoscopy next week because of persistent chest discomfort symptoms, etc. SURGICAL HISTORY: She had a history of abdominoplasty, cataract surgery, oophorectomy on the left side, rotator cuff repair, tonsillectomy and adenoidectomy. There is a family history of Alzheimer's disease, colon cancer, CHF and COPD. The patient is and retired. No significant occupational exposure. She uses Spiriva HandiHaler and has been on omeprazole along with Singulair and Advair Diskus inhaler with the use of a nebulizer p.r.n. ALLERGIES: She has no known drug allergies. She is somewhat noncompliant with annual flu vaccine, but apparently is up to date with pneumococcal vaccination. PHYSICAL EXAMINATION: GENERAL: Reveals a thin elderly white female appearing older than stated age. CURRENT VITAL SIGNS: Blood pressure 150/81, pulse 91 and regular, respiratory rate 18, temperature 36.7, O2 sat 94% on 2 liters. SKIN: Without lesion. HEENT: Atraumatic, normocephalic, PERRLA, EOMI. Conjunctivae pale. Sclerae nonicteric. Fundi benign. Tympanic membranes within normal limits. Pharyngeal exam intact. NECK: Neck veins not distended at 45 degrees. LUNGS: Coarse rhonchi, left greater than right. Distant P and A. CARDIAC: Regular rate and rhythm. No murmurs or gallops. PMI nondisplaced. ABDOMEN: Soft, scaphoid. No evidence of hepatosplenomegaly. EXTREMITIES: No pedal edema, clubbing or cyanosis. NEUROLOGIC: Intact. No lateralizing signs. LABORATORY DATA: CTA on 11/28/2018 was reviewed. The patient has multiple solid pulmonary nodules some measuring up to 7 mm with emphysema and superimposed tree-in-bud opacities in the lower lobes and a compression fracture of T12, new since 2012. The patient has significant moderate central lobular emphysema. The 7-mm superior segment right lower lobe nodule was new since 2012. In retrospect, looking at the CAT scan with Dr. Hernandez , there does appear to be a protruding mass or lesion involving left upper lobe bronchus perhaps even associated with some calcification. OVERALL ASSESSMENT: A 73-year-old with moderate severe chronic obstructive pulmonary disease, persistent symptomatology, recent hospitalization for exacerbation who underwent bronchoscopy today with thick mucopurulent infection involving the right tracheobronchial tree and a protruding mass or lesion from the left upper lobe that bled very easily. The patient was admitted overnight on to the hospitalist service and Dr. Bowers will be consulted in order to consider bronchoscopy in the OR tomorrow for additional biopsy and diagnosis.Dr Aleman from Pulm Med to follow as well. PROSPER
--- NOTE | 2019-01-04 06:28 | Consultation Report ---
DATE OF CONSULTATION: 01/03/2019 REASON FOR CONSULTATION: Hemoptysis from apparent endobronchial lesion. HISTORY OF PRESENT ILLNESS: This is a 73-year-old female who has a longstanding history of chronic obstructive pulmonary disease with exacerbations and pneumonias who also has a history of bronchial obliterans organizing pneumonia and mucopurulent bronchitis, who came to the outpatient suite for a bronchoscopy today. She has a history of essentially active cigarette smoking, although she states that she quit recently. Dr. Carrasco performed a bronchoscopy and noted a mass. This started bleeding when he did a brushing of it. For this reason, he stopped and admitted the patient and this appeared to be from the left upper lobe. I was asked to evaluate her for a bronchoscopy in the OR where we had more tools such as a cryoprobe to control bleeding and to do a better biopsy. She also has some lymphadenopathy and I have tentatively scheduled her for an endobronchial ultrasound in the morning along with a fiberoptic bronchoscopy. PAST MEDICAL HISTORY: 1. Long history of cigarette smoking. 2. Chronic obstructive pulmonary disease. 3. Recurrent pneumonias. 4. Hypoxemia requiring oxygen. 5. Major depression. 6. Osteonecrosis. 7. History of compression fracture of the spine. 8. Osteoporosis. PAST SURGICAL HISTORY: 1. 2, para 2. 2. Multiple skin cancer excisions. 3. Tonsillectomy, adenoidectomy. 4. Bilateral rotator cuff repairs. 5. History of surgery of her left thumb. 6. Open reduction and internal fixation of right hip. 7. Dilatation and curettage and left oophorectomy. 8. Excision of uterine cyst. 9. Bilateral cataract extraction. 10. Abdominoplasty. MEDICATIONS: Please see chart, but includes aspirin, azithromycin, pantoprazole, MiraLax, pravastatin, Flomax, and multiple inhalers. ALLERGIES: No known drug allergies. SOCIAL HISTORY: The patient is originally from the [place] area. She attended [employer], got a degree in history. 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 She has 2 children, 1 in [place] and [place] and one in [place] with multiple grandchildren. FAMILY MEDICAL HISTORY: Mother from Alzheimer's disease. She also had cancer of the colon. She has a sister with Alzheimer's disease and her father had congestive heart failure with dementia. Her son and daughter and grandchildren are healthy. REVIEW OF SYSTEMS: She recently had signs and symptoms of upper respiratory infection. She has been told she had a fungal infection of the lung. She continues to smoke from her late teens until just the last couple of weeks. She also has a history of chronic constipation with slow transit time. She has been short of breath. She has had a productive cough, it has worsened. She has had some hemoptysis and actually even before she had bronchoscope it is more so since her bronchoscopy. She has mild amount of weight loss. She denies nausea or vomiting. She has had no real change in her appetite. She denies any skin breakdown. She denies any peripheral edema. She had no leg pain. She denies palpitations or chest pain. PHYSICAL EXAMINATION: GENERAL: This is a well-developed, well-nourished female who stands 5 feet 2 inches tall and weighs about 120 pounds. She is awake, alert and looks younger than stated age of 73. HEENT: Her extraocular movements are intact. Pupils are equal, round and reactive. She has a great deal of dental work done but her teeth looked quite good. Tongue is midline. She has no oral mucosal lesions. NECK: Supple. I detect no supraclavicular or cervical lymphadenopathy or neck vein distention. LUNGS: She has decreased breath sounds with some upper airway rhonchi. I detect no wheezing. HEART: She has a regular rate and rhythm of her heart. ABDOMEN: Soft, nontender. EXTREMITIES: She has multiple small areas of punctate lesions on her legs. She has faintly palpable dorsalis pedis pulses with no real edema or joint effusions. NEUROLOGIC: She is completely intact. ASSESSMENT AND PLAN: Bleeding from an apparent left upper lobe lesion. I have scheduled her for a bronchoscopy under general anesthesia tomorrow and tentatively plan to do an endobronchial ultrasound. I had a long talk about risk and benefits and she is quite eager to proceed.
[2019-01-04 06:35] LABS: Hematocrit (blood only) 35.2 % (37-47); Hemoglobin 11.6 g/dL (12.0-16.0); Immature Granulocytes # (auto) 0.01 K/uL (0.00-0.02); Immature Granulocytes % (auto) 0.2 %; Lymphocytes # (auto) 0.24 K/uL (1.2-3.4); Lymphocytes % (auto) 4.6 %; Mean Corpuscular Volume 94.6 fL (80-100); Mean Platelet Volume 8.5 fL (7.4-10.4); Monocytes # (auto) 0.06 K/uL (0.11-0.59); Monocytes % (auto) 1.1 %; Neutrophils # (auto) 4.92 K/uL (1.4-6.5); Neutrophils % (auto) 94.1 %; Platelet Count 245 K/uL (130-400); RDW Coefficient of Variation 14.3 % (11.5-14.5); RDW Standard Deviation 49.2 fL (36.4-46.3); Red Blood Count 3.72 M/uL (4.2-5.4); White Blood Count 5.23 K/uL (4.8-10.8)
[2019-01-04 06:45] LABS: Prothrombin Time 10.5 Seconds (9.0-12.0)
[2019-01-04] MEDS: ALBUT/IPRATROP 3MG/0.5MG NEB 3 ML VIAL NEB SCH ×5 (07:00→19:40)
[2019-01-04 07:03] LABS: BUN Creatinine Ratio 19.8 (10-20); Calcium 9.1 mg/dl (8.5-10.1); Creatinine Clr Calc Pharmacy 58.3 ml/min; Est GFR (African American) 100.6; Est GFR (Non-African American) 86.8; Magnesium 2.2 mg/dl (1.8-2.4); Potassium 4.2 mmol/L (3.5-5.1)
[2019-01-04] MEDS: NYSTATIN SUSP 500,000 U/5 ML UDC BUCCAL SCH ×5 (09:00→20:23)
[2019-01-04] MEDS: TIOTROPIUM BROMIDE 5 PUFF/90 MCG INH INH SCH (09:00)
[2019-01-04] MEDS: FLUTICASONE/SALMETEROL (ADVAIR) 500/50 INH 14 PUFF INH SCH ×2 (09:00→20:21)
[2019-01-04] MEDS: PANTOprazole 40 MG TAB PO SCH (11:29)
[2019-01-04] MEDS: VENLAFAXINE HCL XR 150 MG CAPXR PO SCH (11:29)
--- NOTE | 2019-01-04 12:13 | Hospitalist Progress Note ---
Date of Service January 04, 2019 Assessment & Plan (1) COPD (chronic obstructive pulmonary disease): Has exacerbation with complication by Lung Mass/Mucopurulent Bronchitis Hemoptysis-resolved now H/O COPD H/O BOOP Chronic respiratory failure with Hypoxia S/P Bronchoscopy 01/03/19 by Blood cultures obtained Consulted Pulmnology and CT surgery -appreciate input and recommendation Empirically Started on Zosyn Started on Duonebs, Solumedrol Oxygen support PRN NPO after midnight -bronchoscopy today Remains stable Endobronchial/lung Mass with hemoptysis Repeat bronchoscopy today for possible biopsy and bronchial washing Appreciate thoracic surgery input and recommendation Oral Thrush: Continue Nystatin Tobacco Use Disorder Patient states that she quit smoking 3 weeks ago Strongly advised to quit smoking Depression Generalized anxiety disorder Continue Buspar, Trazodone Has acute anxiety-we will continue current medications GERD Continue PPI Hyperlipidemia, Continue Crestor DVT Px: SCDs Re: Hemoptysis Code Status Full Code Disposition: Expect to discharge home when stable The patient was seen and examined in presence of her son All of their questions were answered Subjective 01/04 The patient was seen and examined in medical telemetry unit Patient is a 73-year-old female with history of COPD on chronic oxygen, depression, generalized anxiety disorder, BOOP, hyperlipidemia, tobacco use d isorder, 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 Carrasco for hemoptysis and lung mass. She is status post bronchoscopy yesterday and will need another bone bronchoscopy today to evaluate endobronchial mass She complains today of shortness of breath with minimal exertion Denies any more hemoptysis Review of Systems Review of Systems: All systems reviewed and are unremarkable except as noted below Constitutional: + malaise and + weakness Respiratory: + cough, + dyspnea and + dyspnea on exertion Musculoskeletal: + muscle weakness Bilateral leg edema chronic more on the right than the left Physical Exam Physical Exam: Moderate shortness of breath at rest Constitutional: + ill appearing and + thin Eyes: PERRL, conjunctivae normal, anicteric sclerae ENMT: external ear and nose normal, oropharynx normal Neck: trachea midline, no thyromegaly Respiratory: + respiratory distress Auscultation: + diminished lung sounds, + crackles (Bibasilar) and + wheezes Cardiovascular: Rate/Rhythm: regular rate Heart Sounds: normal S1 and normal S2 Gastrointestinal (Abdomen): Inspection/Auscultation: abdomen normal to inspection and normal bowel sounds Percussion/Palpation: abdomen soft; abdomen nontender Neurologic: Alert, awake and oriented x3. Generally weak but no focal neuro deficit Results & Data Vital Signs (Past 12 Hours) Vital Signs Temp Pulse Pulse Resp BP BP Pulse Ox 01/04/19 11:12 83 18 99 01/04/19 11:05 80 01/04/19 07:26 36.4 C L 82 20 126/70 97 01/04/19 04:30 36.7 C 76 18 119/57 L 91 01/04/19 00:16 36.8 C 89 18 134/73 97 Laboratory Results Short CBC 01/03/19 01/04/19 Range/Units 19:35 05:44 WBC 6.64 5.23 (4.8-10.8) K/uL Hgb 10.8 L 11.6 L (12.0-16.0) g/dL Hct 33.8 L 35.2 L (37-47) % Plt Count 253 245 (130-400) K/uL BMP 01/03/19 01/04/19 19:35 05:44 Sodium 143 143 Potassium 3.4 L 4.2 D Chloride 108 H 109 H Carbon Dioxide 32 29 BUN 12 13 Creatinine 0.73 0.68 Glucose 106 H 156 H Calcium 8.1 L 9.1 Liver Function 01/03/19 Range/Units 19:35 Total Bilirubin 0.3 (0.2-1) mg/dl AST 16 (15-37) U/L ALT 22 (12-78) U/L Alkaline Phosphatase 52 (45-117) U/L Albumin 2.9 L (3.4-5.0) gm/dl Urine 01/03/19 Range/Units 22:00 Urine Color Yellow Urine Appearance Clear (Clear) Urine pH 8.0 H (4.5-7.5) Ur Specific [place] 1.014 (1.000-1.030) Urine Protein Negative (Negative) Urine Glucose (UA) Negative (Negative) Medications Administered Current Inpatient Medications Acetaminophen (Tylenol) 650 mg PO Q4H PRN PRN Reason: pain/fever Stop: 02/02/19 15:39 Albuterol (Duoneb) 3 ml NEB QIDR MARIMAR Stop: 02/02/19 15:59 Last Admin: 01/04/19 11:11 Dose: 3 ml Documented by: Buspirone HCl (Buspar) 5 mg PO BID [facility] Stop: 02/02/19 20:59 Last Admin: 01/04/19 11:29 Dose: Not Given Documented by: Cetirizine HCl (Zyrtec) 10 mg PO DAILY PRN PRN Reason: Seasonal Allergies Stop: 02/02/19 16:00 Fluticasone Propionate (Flonase) 1 sprays NA HS MARIMAR Stop: 02/02/19 20:59 Last Admin: 01/03/19 21:27 Dose: 1 sprays Documented by: Sodium Chloride (Nss 1000ml) 1,000 mls @ 0 mls/hr IV .Q0M MARIMAR Stop: 02/02/19 13:14 Sodium Chloride (Nss 1000ml) 1,000 mls @ 15 mls/hr IV .Q24H MARIMAR Stop: 02/02/19 13:14 Last Admin: 01/03/19 13:05 Dose: 15 mls/hr Documented by: Methylprednisolone 40 mg/ (Syringe) 0.64 mls @ 1.5 mls/min IV Q8H [facility] Stop: 02/02/19 18:59 Last Admin: 01/04/19 11:44 Dose: 1.5 mls/min Documented by: Piperacillin Sod/Tazobactam (Sod 3.375 gm/ Dextrose) 115 mls @ 28.75 mls/hr IV Q8H [facility]; Protocol Stop: 01/11/19 00:59 Last Admin: 01/04/19 08:51 Dose: 28.8 mls/hr Documented by: Lorazepam (Ativan) 0.25 mg PO DAILY PRN PRN Reason: Anxiety Stop: 02/02/19 16:00 Miscellaneous (Order Awaiting Action) 1 ea N/A QS MARIMAR Stop: 02/03/19 00:00 Last Admin: 01/04/19 11:28 Dose: Not Given Documented by: Miscellaneous Information (Consult) 1 ea N/A UD PRN PRN Reason: Consult Stop: 02/02/19 17:31 Montelukast Sodium (Singulair) 10 mg PO HS [facility] Stop: 02/02/19 20:59 Last Admin: 01/03/19 21:27 Dose: 10 mg Documented by: Nystatin (Mycostatin) 5 ml BUCCAL QID MARIMAR Stop: 01/13/19 20:59 Last Admin: 01/04/19 09:00 Dose: 5 ml Documented by: Ondansetron HCl (Zofran) 4 mg IV Q6H PRN PRN Reason: Nausea Stop: 02/02/19 15:39 Pantoprazole Sodium (Protonix) 40 mg PO QAM [facility] Stop: 02/03/19 08:59 Last Admin: 01/04/19 11:29 Dose: Not Given Documented by: Polyethylene Glycol (Miralax Powder Packet) 17 gm PO QAM PRN PRN Reason: Constipation Stop: 01/06/19 16:00 Rosuvastatin Calcium (Crestor) 20 mg PO HS [facility] Stop: 02/02/19 20:59 Last Admin: 01/03/19 21:27 Dose: 20 mg Documented by: Fluticasone/Salmeterol (Advair Diskus 500/50) 2 puffs INH BID [facility] Stop: 02/02/19 20:59 Last Admin: 01/04/19 09:00 Dose: 2 puffs Documented by: Sennosides (Senokot) 17.2 mg PO BID PRN PRN Reason: Constipation Stop: 02/02/19 16:00 Tiotropium [place] (Spiriva) 1 puffs INH QAM [facility] Stop: 02/03/19 08:59 Last Admin: 01/04/19 09:00 Dose: 1 puffs Documented by: Trazodone HCl (Desyrel) 75 mg PO HS PRN PRN Reason: Insomnia Stop: 02/02/19 16:00 Last Admin: 01/03/19 21:48 Dose: 75 mg Documented by: Venlafaxine HCl (Effexor Extended Release) 150 mg PO QAM [facility] Stop: 02/03/19 08:59 Last Admin: 01/04/19 11:29 Dose: Not Given Documented by:
--- NOTE | 2019-01-04 14:42 | Progress Note ---
DATE: 01/04/2019 PULMONARY PROGRESS NOTE TIME: 10:10 a.m. SUBJECTIVE: The patient is still coughing a small amount of blood after her bronchoscopy yesterday. She still feels somewhat tight in the chest with wheezing. She is not having any pain. She was seen earlier today by Dr. Bowers who was going to repeat a bronchoscopy to try and obtain a biopsy of what appears to be a left upper lobe mass. OBJECTIVE: GENERAL: The patient appears comfortable. She was anxious. VITAL SIGNS: Temperature is 36.4. She has had no significant fevers. HEENT: Pupils were reactive. She appears to have had prior cataract surgery. Nasal cannula is in place. Mouth exam showed no evidence of oral candidiasis. NECK: Palpation of the neck reveals no lymph nodes. CARDIAC: Rate 82 per minute. Rhythm regular. Blood pressure 126/70. LUNGS: Auscultation of the lung heredia reveals [id number] wheeze bilaterally. This was mainly on expiration. Respiratory rate 20. Saturation 97% on 2 liters. EXTREMITIES: Shows no cyanosis, clubbing, or edema. She has numerous skin lesions on her lower extremities, which she states are chronic. LABORATORY DATA: White count is 5.23. Hemoglobin 11.6. Platelets 245,000. INR is 1. Electrolytes showed sodium 143, potassium 4.2, chloride 109, bicarbonate 29. BUN 13, creatinine 0.68. IMPRESSION: 1. Left upper lobe mass. 2. Hemoptysis. 3. Chronic obstructive pulmonary disease. COMMENTS: The patient had bronchoscopy yesterday that suggested a left upper lobe mass that was friable. There was too much bleeding to do biopsy safely. She is scheduled to have a repeat bronchoscopy today by Dr. Bowers. He will have ready availability of rigid bronchoscopy if she would develop significant bleeding. He also can do cryoprobe biopsies. The patient has [id number] wheeze on exam, but she seems stable. I do not know if she always wheezes. Saturations are good. She was in no distress. She is on methylprednisolone as well as Zosyn, DuoNeb treatments, montelukast, and nystatin.
--- NOTE | 2019-01-04 16:25 | Anesthesiology Consultation ---
Date of Service January 04, 2019 The patient had a bronchoscopy with Dr. Carrasco yesterday and was noted to have some bleeding. Assessment & Plan (1) Encounter for pre-operative examination: NPO Date Last Intake of Fluids: 01/02/19 Time Last Intake of Fluids: 22:30 Date Last Intake of Solids: 01/02/19 Time Last Intake of Solids: 22:30 History Surgery Operation Date: 01/03/19 13:00 Proposed Procedures p Bronchoscopy Radiology - Caesar Carrasco MD Operation Date: 01/04/19 14:35 Proposed Procedures p Bronchoscopy Respiratory - Ishmael Bowers MD, FACS Height/Weight Height: 5 ft 2 in Weight: 54.1 kg Allergies Allergy/AdvReac Type Severity Reaction Status Date / Time No Known Allergies Allergy Verified 01/03/19 12:24 Medications Home Medications Medication Instructions Recorded Confirmed Last Taken Linzess 72 mg PO QAM 11/28/18 01/03/19 01/02/19 08:00 Spiriva with HandiHaler 1 cap INHALATION QAM 11/28/18 01/03/19 01/03/19 09:00 albuterol sulfate [Ventolin HFA] 2 puff INHALATION Q4H PRN 11/28/18 01/03/19 01/03/19 08:30 ascorbic acid (vitamin C) 1,000 mg PO QAM 11/28/18 01/03/19 01/02/19 08:00 buspirone 5 mg PO BID 11/28/18 01/03/19 01/02/19 20:00 calcium carbonate [Calcium 500] 500 mg PO TID 11/28/18 01/03/19 01/02/19 08:00 cetirizine 10 mg PO DAILY PRN 11/28/18 01/03/19 01/02/19 20:00 cyanocobalamin (vitamin B-12) 1,000 mcg PO QAM 11/28/18 01/03/19 01/02/19 08:00 fluticasone propion-salmeterol 1 inh INHALATION BID 11/28/18 01/03/19 01/03/19 08:30 [Advair Diskus] fluticasone propionate 2 spry INTRANASAL HS 11/28/18 01/03/19 01/02/19 21:00 ipratropium-albuterol 3 ml INHALATION QID PRN 11/28/18 01/03/19 01/03/19 08:30 montelukast 10 mg PO HS 11/28/18 01/03/19 01/02/19 20:00 pantoprazole 40 mg PO QAM 11/28/18 01/03/19 01/03/19 08:00 polyethylene glycol 3350 [Miralax] 17 g PO QAM PRN 11/28/18 01/03/19 Unknown rosuvastatin 20 mg PO HS 11/28/18 01/03/19 01/02/19 20:00 sennosides [senna] 17.2 mg PO BID PRN 11/28/18 01/03/19 Unknown trazodone 75 mg PO HS PRN 11/28/18 01/03/19 01/02/19 21:00 venlafaxine 150 mg PO QAM 11/28/18 01/03/19 01/02/19 08:00 lorazepam 0.25 mg PO DAILY PRN 12/31/18 01/03/19 Unknown [id number]-[id number]-minerals 1 tab PO QAM 12/31/18 01/03/19 01/02/19 08:00 [Women's Daily Formula] nystatin 1 dose BUCCAL QID 12/31/18 01/03/19 01/02/19 09:00 Active Medications Generic Name Dose Route Start Last Admin Trade Name Freq PRN Reason Stop Dose Admin Albuterol 3 ml 01/03/19 16:00 01/04/19 16:45 Duoneb NEB 02/02/19 15:59 3 ml QIDR MARIMAR Administration Buspirone HCl 5 mg 01/03/19 21:00 01/04/19 11:29 Buspar PO 02/02/19 20:59 Not Given BID MARIMAR Fluticasone Propionate 1 sprays 01/03/19 21:00 01/03/19 21:27 Flonase NA 02/02/19 20:59 1 sprays HS MARIMAR Administration Sodium Chloride 1,000 mls @ 15 mls/hr 01/03/19 13:15 01/03/19 13:05 Nss 1000ml IV 02/02/19 13:14 15 mls/hr .Q24H MARIMAR Administration Methylprednisolone 40 mg/ 0.64 mls @ 1.5 mls/min 01/03/19 19:00 01/04/19 11:44 Syringe IV 02/02/19 18:59 1.5 mls/min Q8H MARIMAR Administration Piperacillin Sod/Tazobactam 115 mls @ 28.75 mls/hr 01/04/19 01:00 01/04/19 12:51 Sod 3.375 gm/ Dextrose IV 01/11/19 00:59 Infused Q8H MARIMAR Infusion Protocol Miscellaneous 1 ea 01/04/19 00:00 01/04/19 11:28 Order Awaiting Action N/A 02/03/19 00:00 Not Given QS MARIMAR Montelukast Sodium 10 mg 01/03/19 21:00 01/03/19 21:27 Singulair PO 02/02/19 20:59 10 mg HS MARIMAR Administration Nystatin 5 ml 01/03/19 21:00 01/04/19 13:08 Mycostatin BUCCAL 01/13/19 20:59 Not Given QID MARIMAR Pantoprazole Sodium 40 mg 01/04/19 09:00 01/04/19 11:29 Protonix PO 02/03/19 08:59 Not Given QAM MARIMAR Rosuvastatin Calcium 20 mg 01/03/19 21:00 01/03/19 21:27 Crestor PO 02/02/19 20:59 20 mg HS MARIMAR Administration Fluticasone/Salmeterol 2 puffs 01/03/19 21:00 01/04/19 09:00 Advair Diskus 500/50 INH 02/02/19 20:59 2 puffs BID MARIMAR Administration Tiotropium [place] 1 puffs 01/04/19 09:00 01/04/19 09:00 Spiriva INH 02/03/19 08:59 1 puffs QAM MARIMAR Administration Trazodone HCl 75 mg 01/03/19 16:01 01/03/19 21:48 Desyrel PO 02/02/19 16:00 75 mg HS PRN Administration Insomnia Venlafaxine HCl 150 mg 01/04/19 09:00 01/04/19 11:29 Effexor Extended Release PO 02/03/19 08:59 Not Given QAM MARIMAR Past Medical History Medical History Asthma Basal cell carcinoma (BCC) COPD (chronic obstructive pulmonary disease) inhalers daily/prn KURTIS (generalized anxiety disorder) GERD (gastroesophageal reflux disease) H/O compression fracture of spine Hiatal hernia History of anesthesia reaction felt bronchoscopy procedure History of colon polyps Hyperlipidemia On home oxygen therapy o2 @ 2L N/C hs and prn Osteoarthritis 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, jaw Osteoporosis Recurrent major depression Scoliosis Slow transit constipation Smoker Squamous cell carcinoma Past Family History Family History Mother Family hx of colon cancer Other Family history non-contributory No family history of adverse response to anesthesia Past Surgical History Surgical History History of Mohs micrographic surgery for skin cancer History of abdominoplasty History of arthroplasty of right hip History of bilateral cataract extraction History of bronchoscopy x1, and now scheduled for another 01/03/19 History of colonoscopy History of detached retina repair right eye History of dilatation and curettage History of esophagogastroduodenoscopy (EGD) History of gynecologic surgery benign uterine cyst removal History of left oophorectomy History of open reduction and internal fixation (ORIF) procedure right hip History of repair of left rotator cuff History of repair of right rotator cuff History of thumb surgery left History of tonsillectomy and adenoidectomy History of wisdom tooth extraction Social History Smoking Status: Former smoker tobacco type: cigarettes Do You Dip or Chew Tobacco: No Hx Alcohol Use: Yes Alcohol type: wine alcohol intake frequency: holidays/special occasions only Hx Substance Use: No substance use type: tranquilizers and sedatives Physical Exam Vital Signs Last Vital Signs Temp 37 C 01/04/19 16:39 Pulse 95 H 01/04/19 16:49 Resp 18 01/04/19 16:49 BP 173/75 H 01/04/19 16:39 Pulse Ox 93 01/04/19 16:49 Testing Electrocardiogram Date: 01/03/19 Findings: + NSR @ Normal sinus rhythm Normal ECG When compared with ECG of 30-NOV-2018 06:39, No significant change was found Confirmed by ALEAH HIRSCH ([id number]) on 01/04/2019 11:47:09 AM Laboratory Results 01/04/19 05:44 01/04/19 05:44 PT 10.5 Seconds (9.0-12.0) 01/04/19 05:44 INR 1.0 (0.9-1.1) 01/04/19 05:44 Urine Color Yellow 01/03/19 22:00 Urine Appearance Clear (Clear) 01/03/19 22:00 Urine pH 8.0 (4.5-7.5) H 01/03/19 22:00 Ur Specific [place] 1.014 (1.000-1.030) 01/03/19 22:00 Urine Protein Negative (Negative) 01/03/19 22:00 Urine Glucose (UA) Negative (Negative) 01/03/19 22:00 Urine Ketones Negative (Negative) 01/03/19 22:00 Urine Nitrite Negative (Negative) 01/03/19 22:00 Ur Leukocyte Esterase Negative (Negative) 01/03/19 22:00 01/03/19 13:45 Gram Stain - Final Bronch Wash,Left Upper Lobe Bronchoalveolar Lavage Culture - Preliminary Moderate normal evan present, final report to follow. 01/03/19 13:45 Fungal Smear - Final Bronch Wash,Left Upper Lobe
[2019-01-04] MEDS ORDERED: fentaNYL citrate 100 MCG/2 ML VIAL ONE (17:01)
[2019-01-04] MEDS ORDERED: THROMBIN 5000 UNITS KIT ONE (17:01)
[2019-01-04] MEDS ORDERED: SUCCINYLCHOLINE CHLORIDE 20 MG/ML 10 ML VIAL ONE (17:03)
[2019-01-04] MEDS ORDERED: LARYING-O-JET KIT (LTA) ONE (17:03)
[2019-01-04] MEDS ORDERED: PROPOFOL IV EMULSION 10 MG/ML 20 ML VIAL IV ONE (17:03)
[2019-01-04] MEDS ORDERED: LIDOCAINE HCL 2% 2 ML VIAL/AMP(20MG/ML) INFIL ONE (17:03)
[2019-01-04] MEDS ORDERED: ONDANSETRON INJ 2 MG/ML 2 ML VIAL ONE (17:03)
[2019-01-04] MEDS ORDERED: LABETALOL HCL IV 5 MG/ML 20ML IV PRN (17:07)
[2019-01-04] MEDS ORDERED: fentaNYL citrate 100 MCG/2 ML VIAL IV PRN (17:07)
[2019-01-04] MEDS ORDERED: PHENYLEPHRINE 100MCG/ML 5ML SYR IV PRN (17:07)
[2019-01-04] MEDS ORDERED: ePHEDrine sulfate 50 MG/ML AMP IV PRN (17:07)
[2019-01-04] MEDS ORDERED: ONDANSETRON INJ 2 MG/ML 2 ML VIAL IV PRN (17:07)
[2019-01-04] MEDS ORDERED: ATROPINE SULFATE 0.1 MG/ML 10ML SYR IV PRN (17:07)
[2019-01-04] MEDS ORDERED: HYDROmorphone INJ 1 MG/ML SYRINGE IV PRN (17:07)
[2019-01-04] MEDS ORDERED: DEXAMETHASONE SOD INJ 4 MG/ML VIAL ONE (17:14)
--- NOTE | 2019-01-04 18:09 | Post Operative Brief Note ---
Immediate Post Op Note v1 Date of Surgery January 04, 2019 Pre & Post Diagnosis Operation Date: 01/03/19 13:00 Pre-Op Diagnosis: LUNG MASS Post-Op Diagnosis: LUNG MASS Operation Date: 01/04/19 14:35 Pre-Op Diagnosis: Hemoptysis, Left Upper Lobe Lesion Post-Op Diagnosis: Hemoptysis, Left Upper Lobe Lesion Procedure Operation Date: 01/04/19 14:35 Actual Procedures p Fiberoptic Bronchoscopy with Biopsy Debulking of left upper lobe tumor Control of hemorrhage Ishmael Bowers MD, FACS Surgeon Ishmael Bowers MD, FACS [facility] Director Matheus Morgan senior staff accountant, Lazaro Padilla MD Estimated Blood Loss 50 Findings Consistent with Post-Op Diagnosis Apparent neoplastic mass Left upper lobe - Debulked
[2019-01-04] MEDS ORDERED: ALBUT/IPRATROP 3MG/0.5MG NEB 3 ML VIAL NEB STA (18:23)
--- NOTE | 2019-01-04 18:51 | XRay Report ---
XR chest 1V portable HISTORY: Postop bronchoscopy. COMPARISON: Chest 01/03/2019. FINDINGS: No pneumothorax. No pleural effusions. The heart is normal in size. No new focal lung conso lidations to suggest pneumonia. No evidence for pulmonary edema. Emphysema. Linear scarlike densities within the right upper lobe persist. Mild perihilar interstitial thickening which may be chronic. IMPRESSION: Emphysema. No pneumothorax. No new focal lung consolidations. Electronically signed by: Jonny Hernandez M.D. 01/04/2019 6:50 PM
--- NOTE | 2019-01-04 19:03 | Anesthesiology Progress Note ---
Date of Service January 04, 2019 Anesthesia Post Procedure Vital Signs Vital Signs: Temp Pulse Pulse Pulse Resp BP BP 01/04/19 18:55 37 C 101 H 21 149/69 H 01/04/19 18:45 107 H 24 172/62 H 01/04/19 18:35 108 H 20 161/62 H 01/04/19 18:30 78 20 01/04/19 18:25 112 H 20 170/76 H 01/04/19 18:18 36.9 C 120 H 22 183/75 H 01/04/19 16:49 95 H 18 01/04/19 16:39 37 C 93 H 18 173/75 H 01/04/19 16:00 81 01/04/19 15:17 91 H 18 01/04/19 15:08 36.8 C 85 18 141/65 H 01/04/19 12:22 36.8 C 84 18 149/68 H 01/04/19 11:12 83 18 01/04/19 11:05 80 01/04/19 07:26 36.4 C L 82 20 126/70 01/04/19 04:30 36.7 C 76 18 119/57 L 01/04/19 00:16 36.8 C 89 18 134/73 01/04/19 00:00 88 Pulse Ox 01/04/19 18:55 96 01/04/19 18:45 95 01/04/19 18:35 99 01/04/19 18:30 99 01/04/19 18:25 99 01/04/19 18:18 98 01/04/19 16:49 93 01/04/19 16:39 93 01/04/19 16:00 01/04/19 15:17 94 01/04/19 15:08 95 01/04/19 12:22 96 01/04/19 11:12 99 01/04/19 11:05 01/04/19 07:26 97 01/04/19 04:30 91 01/04/19 00:16 97 01/04/19 00:00 Pain Intensity Medial Chest: Pain Intensity: 1 Notes Mental Status: alert / awake / arousable Patient Amnestic to Procedure: Yes Nausea / Vomiting: adequately controlled Pain: adequately controlled Airway Patency, RR, SpO2: stable & adequate BP & HR: stable & adequate Hydration State: stable & adequate Anesthetic Complications: no major complications apparent and Pt Satisfied with anesthetic care Notes: The patient is awake and stable. She was given a Duoneb in PACU and feels much better now.
[2019-01-04] MEDS ORDERED: ALBUT/IPRATROP 3MG/0.5MG NEB 3 ML VIAL INH PRN (20:10)
[2019-01-04] MEDS ORDERED: ALBUTEROL HFA 8 GM INHALER INH PRN (20:10)
[2019-01-04] MEDS: FLUTICASONE PROPIONATE NA SPR 16 GM BTL SCH (21:34)
[2019-01-04] MEDS: MONTELUKAST SODIUM 10 MG TABLET PO SCH (21:35)
[2019-01-04] MEDS: ROSUVASTATIN CALCIUM 20 MG TAB PO SCH (21:35)
[2019-01-04] MEDS: CALCIUM CARBONATE 1250MG TAB PO SCH (21:46)
[2019-01-04] MEDS: TRAZODONE HCL 50 MG TAB PO PRN (21:55)
[2019-01-04] MEDS ORDERED: Nursing to Pharmacy Communication ONE (23:27)
--- NOTE | 2019-01-05 01:09 | Operative Report ---
DATE OF OPERATION: 01/04/2019 PREOPERATIVE DIAGNOSES: 1. Obstructing mass, left upper lobe bronchus. 2. Hemoptysis. 3. Long history of heavy cigarette smoking. POSTOPERATIVE DIAGNOSES: 1. Obstructing mass, left upper lobe bronchus. 2. Hemoptysis. 3. Long history of heavy cigarette smoking. PROCEDURE: 1. Fiberoptic bronchoscopy under general anesthesia. 2. Debulking of tumor at orifice of superior segment, left upper lobe. 3. Control of hemorrhage with cryoprobe. SURGEON: Ishmael Bowers MD FARM WORKER: Lazaro Padilla MD, and Matheus Morgan, registered respiratory therapist. ANESTHESIA: General anesthesia with endotracheal intubation. INDICATION FOR PROCEDURE AND FINDINGS: This is a very nice 73-year-old female who has a long history of cigarette smoking, although she quit a couple of weeks ago. She had been having difficulties with what was thought to be an infectious problem and Dr. Carrasco bronchoscoped her yesterday; however, she had a mass in her left upper lobe orifice and Dr. Carrasco did a brushing of it and it bled rather profusely. He aborted the procedure and called and asked if we could do this under general anesthesia. I explained to the patient that we had more tools in our armamentarium in the operating room, we could also do a rigid bronchoscopy for more aggressive control of hemorrhage if we got into that. I had a long talk with the patient and her son. I also discussed this with her sister. We elected to proceed and today on 01/04/2019, we proceeded with a bronchoscopy. She did indeed have an obstructing tumor that appeared to be coming from the orifice of the superior segment of the upper lobe. This was just at the takeoff of the lingula and upper lobe bronchi. I was a bit surprised to see how much blood was in the airways. I suctioned out a large amount of clot from both sides and bloody mucus. Her right was completely clear. Coming down the left, I did suction this mass and it bled profusely. We used a cryoprobe and went down and froze this and took a large piece of it out for biopsy. I then used the cryoprobe to control bleeding in a circumferential fashion that completely opened up this airway. I saw no evidence of any mass after this. I used the cryoprobe to control the bleeding from the surrounding endobronchial mucosa. I also used iced saline and epinephrine and at the end, I sprayed thrombin and there was no bleeding whatsoever when we finished. She tolerated it well. DESCRIPTION OF PROCEDURE: The patient was brought to operating room and laid in supine position. General anesthesia was induced and endotracheal intubation was performed. After appropriate timeout had been called, a fiberoptic bronchoscope was placed via adaptor of the endotracheal tube. Upon going down into the airway, we saw old blood, which was tenacious and a bit difficult to suck out of the right mainstem bronchus going down to the bronchus intermedius and the middle lobe and basilar segments. I suctioned all this out and they cleared fairly quickly with saline. I saw no endobronchial lesions and the mucosa actually looked normal. The upper lobe was clear of any blood. Coming down to the left, there was more blood and I suctioned out some tenacious material which was difficult to get out and I actually had to flush out the bronchoscope as it would not suck the clot all the way through. Finally got down to the mass where we could see it and there was blood around it and upon suctioning this out this mass began to bleed rather profusely. I placed iced saline on this; however, this did not slow it down much. For this reason, I then got out the cryoprobe and putting it through the working channel of the bronchoscope, I was able to get down and removed a large portion of it after freezing it. I then used cryoprobe to freeze the airway, the mucosa surrounding this and we controlled the bleeding nicely. We also had several specimens from the cryoprobe. After irrigating this out, I was quite pleased although there was some oozing just from the friable mucosa around this and we irrigated with some iced saline and then some epinephrine which controlled it nicely; however, there was still some oozing. I then sprayed thrombin on this and this controlled the bleeding completely. We suctioned her dry and I was quite pleased with both airways. We had debulked this tumor quite nicely. She tolerated it well, was extubated in the room, and transported back to the postanesthesia care unit in stable condition. I attest to the content of the Intraoperative Record and any orders documented therein. Any exception s are noted below.
[2019-01-05] MEDS: PIPERACILLIN/TAZOBACTAM 3.375 GM in DEXTROSE 5% 100 ML IV SCH ×2 (03:38→11:22)
[2019-01-05] MEDS: methylPREDNISolone 40 MG in SYRINGE 0 ML IV SCH ×2 (03:38→11:23)
[2019-01-05] MEDS: PANTOprazole 40 MG TAB PO SCH (03:42)
[2019-01-05 06:15] LABS: Hematocrit (blood only) 32.8 % (37-47); Hemoglobin 10.7 g/dL (12.0-16.0); Immature Granulocytes # (auto) 0.02 K/uL (0.00-0.02); Immature Granulocytes % (auto) 0.2 %; Lymphocytes # (auto) 0.27 K/uL (1.2-3.4); Lymphocytes % (auto) 2.4 %; Mean Corpuscular Hgb Conc 32.6 g/dL (32-36); Mean Corpuscular Volume 94.3 fL (80-100); Mean Platelet Volume 8.3 fL (7.4-10.4); Monocytes # (auto) 0.37 K/uL (0.11-0.59); Monocytes % (auto) 3.3 %; Neutrophils # (auto) 10.62 K/uL (1.4-6.5); Neutrophils % (auto) 94.1 %; Platelet Count 232 K/uL (130-400); RDW Coefficient of Variation 14.7 % (11.5-14.5); RDW Standard Deviation 50.3 fL (36.4-46.3); Red Blood Count 3.48 M/uL (4.2-5.4); White Blood Count 11.28 K/uL (4.8-10.8)
[2019-01-05 06:48] LABS: BUN Creatinine Ratio 23.6 (10-20); Calcium 8.4 mg/dl (8.5-10.1); Creatinine Clr Calc Pharmacy 54.3 ml/min; Est GFR (African American) 94.7; Est GFR (Non-African American) 81.7
[2019-01-05] MEDS: ALBUT/IPRATROP 3MG/0.5MG NEB 3 ML VIAL NEB SCH ×2 (07:19→11:13)
[2019-01-05] MEDS: SODIUM CHLORIDE 0.9% 1000ML 1,000 ML IV SCH (07:46)
[2019-01-05] MEDS: FLUTICASONE/SALMETEROL (ADVAIR) 500/50 INH 14 PUFF INH SCH (08:00)
[2019-01-05] MEDS: VENLAFAXINE HCL XR 150 MG CAPXR PO SCH (08:01)
[2019-01-05] MEDS: CALCIUM CARBONATE 1250MG TAB PO SCH (08:02)
[2019-01-05] MEDS: TIOTROPIUM BROMIDE 5 PUFF/90 MCG INH INH SCH (08:03)
[2019-01-05] MEDS: NYSTATIN SUSP 500,000 U/5 ML UDC BUCCAL SCH ×2 (08:03→11:23)
[2019-01-05] MEDS ORDERED: ASCORBIC ACID 500 MG TAB PO SCH (09:00)
[2019-01-05] MEDS ORDERED: CEROVITE ADV FORMULA TAB PO SCH (09:00)
[2019-01-05] MEDS ORDERED: CYANOCOBALAMIN 500 MCG TABLET (VITAMIN B-12) PO SCH (09:00)
--- NOTE | 2019-01-05 11:28 | Surgery Progress Note ---
Date of Service January 05, 2019 Assessment & Plan (1) Lung mass: -pt. is s/p FOB with biopsies and control of bleeding -pathology is pending -continue current care as directed by primary service Subjective Pt. notes she feels ok today . She has no cough up any blood since her most recent bronchoscopy. Physical Exam Respiratory: no respiratory distress and no labored breathing Few expiratory wheezes noted. Results & Data Vital Signs (Past 12 Hours) Vital Signs Temp Pulse Pulse Resp BP Pulse Ox 01/05/19 11:15 101 H 16 95 01/05/19 07:26 36.9 C 95 H 18 127/67 97 01/05/19 07:19 87 18 97 01/05/19 03:51 36.5 C 83 20 128/88 98
--- NOTE | 2019-01-05 12:27 | Hospitalist Progress Note ---
Date of Service January 05, 2019 Assessment & Plan (1) COPD (chronic obstructive pulmonary disease): Per Dr. Felder's notes Has exacerbation with complication by Lung Mass/Mucopurulent Bronchitis Hemoptysis-resolved now H/O COPD H/O BOOP Chronic respiratory failure with Hypoxia S/P Bronchoscopy 01/03/19 by Blood cultures obtained Consulted Pulmnology and CT surgery -appreciate input and recommendation Empirically Started on Zosyn Started on Duonebs, Solumedrol Oxygen support PRN s/p Bronchoscopy with Biopsy -- discussed with Dr. Aleman patient cleared for d/c today recommend slow Prednisone taper and PO antibiotics x 1 week continue nebs TID, PRN for sob/wheezing Endobronchial/lung Mass with hemoptysis management as noted above no recurrence of hemoptysis Chronic respiratory failure Patient ambulated and required 2 L of O2 via nasal cannula while ambulating, 1 L of nasal cannula at rest Oral Thrush: Continue Nystatin Tobacco Use Disorder Patient states that she quit smoking 3 weeks ago Strongly advised to quit smoking Depression Generalized anxiety disorder Continue Buspar, Trazodone Has acute anxiety-we will continue current medications GERD Continue PPI Hyperlipidemia, Continue Crestor DVT Px: SCDs Re: Hemoptysis Code Status Full Code Disposition: d/c home ff up with recreational programs director Dr. Carrasco and thoracic surgeon Dr. Bowers this week ff up with PCP in 1 week Case discussed with patient in detail She is understanding and comfortable plan of care Subjective Follow-up for hemoptysis, lung mass Seen resting in bed, comfortable, on 2 L of nasal cannula oxygen next Not in distress States she feels overall Less cough, dry, no hemoptysis No chest pain Denies dizziness, palpitations, nausea No other symptoms States she isready and would like to be discharged today Review of Systems Review of Systems: On systems reviewed negative except was mentioned above Physical Exam Physical Exam: General- oriented x 3, not in distress, speaks in sentences with no effort or accessory muscle use Eyes- anicteric Neck- no JVD Lungs-mild wheeze bilaterally, no crackles, good air entry bilaterally Heart- normal rate, regular rhythm; no murmurs Abdomen- normal bowel sounds, nondistended, soft, nontender Extremities- no pretibial edema, no calf tenderness Neuro- alert, oriented x 3; no gross focal neurologic deficits Skin- warm & dry Results & Data Vital Signs (Past 12 Hours) Vital Signs Temp Pulse Pulse Resp BP Pulse Ox 01/05/19 11:15 101 H 16 95 01/05/19 07:26 36.9 C 95 H 18 127/67 97 01/05/19 07:19 87 18 97 01/05/19 03:51 36.5 C 83 20 128/88 98 Laboratory Results Laboratory Results - last 24 hr 01/05/19 01/05/19 06:06 06:06 WBC 11.28 H RBC 3.48 L Hgb 10.7 L Hct 32.8 L MCV 94.3 MCH 30.7 MCHC 32.6 RDW Std Deviation 50.3 H RDW Coeff of Yamini 14.7 H Plt Count 232 MPV 8.3 Immature Gran % (Auto) 0.2 Neut % (Auto) 94.1 Lymph % (Auto) 2.4 [place] % (Auto) 3.3 Eos % (Auto) 0.0 Baso % (Auto) 0.0 Immature Gran # (Auto) 0.02 Neut # (Auto) 10.62 H Lymph # (Auto) 0.27 L [place] # (Auto) 0.37 Eos # (Auto) 0.00 Baso # (Auto) 0.00 Sodium 141 Potassium 4.0 Chloride 110 H Carbon Dioxide 28 Anion Gap 3.0 BUN 17 Creatinine 0.73 Est Cr Clr Drug Dosing 54.3 Est GFR ( Amer) 94.7 Est GFR (Non-Af Amer) 81.7 BUN/Creatinine Ratio 23.6 H Glucose 138 H Calcium 8.4 L
--- NOTE | 2019-01-05 12:29 | Progress Note ---
DATE: 01/05/2019 PULMONARY PROGRESS NOTE TIME: 11:00 a.m. SUBJECTIVE: The patient is fairly comfortable. She is still a little more short of breath than what she usually is. She did not have any problems overnight. Although she had significant hemoptysis at the time of her scope, she did not expectorate any blood since the scope as far as she is aware of. The patient remains quite anxious. OBJECTIVE: GENERAL: The patient is comfortable at rest. VITAL SIGNS: Temperature is 36.9. No fevers last evening. Heart rate 95 per minute. Rhythm regular. Blood pressure 127/67. LUNGS: Lung heredia revealed mild wheeze bilaterally. This is less than yesterday. Respiratory rate 18. Saturation on 2 liters was 99% at the time of my exam. After oxygen was off for about 10 minutes, saturations were 94%. She has not ambulated to any substantial degree. EXTREMITIES: Showed no cyanosis, clubbing or edema. LABORATORY DATA: White count today 11.28. Hemoglobin 10.7. Platelets 232,000. Electrolytes show sodium 141, potassium 4, chloride 110, bicarbonate 28. BUN is 17 with creatinine 0.73. IMPRESSION: 1. Left upper lobe mass - suspicious for malignancy. 2. Hemoptysis. 3. Chronic obstructive pulmonary disease. COMMENTS AND RECOMMENDATIONS: The patient is anxious for discharge. Tomorrow is Easter. She states her sister is visiting from [place] and will be with her. I have asked nursing to ambulate her somewhat in the mitchell. If she does well in that regard, I believe she is acceptable for discharge. I would send her with prednisone 40 mg daily with a gradual taper. Would send her home with Augmentin. She should be using her normal bronchodilators that she does at home. She does have O2 at home. She will need to follow up with Dr. Bowers and . [facility]ALTH[facility]
--- NOTE | 2019-01-09 07:42 | Discharge Summary ---
Date of Service January 09, 2019 Admission HPI Per Admitting Provider Patient is a 73-year-old female with history of COPD on chronic oxygen, depression, generalized anxiety disorder, BOOP, hyperlipidemia, tobacco use disorder, 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 Carrasco for hemoptysis and lung mass. Patient was recently discharged from [facility] after being treated for COPD exacerbation secondary to pneumonia. Patient had an elective bronchoscopy today by Dr. Carrasco and was found to have lung mass/mucopurulent bronchitis. Patient needs repeat bronchoscopy in the OR tomorrow. Patient states having cough with greenish expectoration since 2 days duration. Reports associated shortness of breath which she feels like chest tightness. She had low-grade fever 2 days ago. Also had minimal hemoptysis. She believes she lost about 2 pounds in 1 month duration. Denies any history of chest pain, dizziness, headache, nausea, vomiting, abdominal pain, diarrhea, change in appetite, dysuria, hematuria. She states that he quit smoking 3 weeks ago. Admission Exam Per Admitting Provider General- oriented x 3, not in distress, speaks in sentences with no effort or accessory muscle use Eyes- anicteric Neck- no JVD Lungs-mild wheeze bilaterally, no crackles, good air entry bilaterally Heart- normal rate, regular rhythm; no murmurs Abdomen- normal bowel sounds, nondistended, soft, nontender Extremities- no pretibial edema, no calf tenderness Neuro- alert, oriented x 3; no gross focal neurologic deficits Skin- warm & dry Principal Diagnosis Lung Mass, Mucopurulent Bronchitis Discharge Exam General- oriented x 3, not in distress, speaks in sentences with no effort or accessory muscle use Eyes- anicteric Neck- no JVD Lungs-mild wheeze bilaterally, no crackles, good air entry bilaterally Heart- normal rate, regular rhythm; no murmurs Abdomen- normal bowel sounds, nondistended, soft, nontender Extremities- no pretibial edema, no calf tenderness Neuro- alert, oriented x 3; no gross focal neurologic deficits Skin- warm & dry Discharge Data Allergies Allergy/AdvReac Type Severity Reaction Status Date / Time No Known Allergies Allergy Verified 01/03/19 12:24 Consultations 01/03/19 15:40 Consult Pulmonology Routine 01/03/19 15:44 Consult Case Management - Discharge Planning Routine 01/03/19 15:46 Consult Thoracic Surgery Routine Procedures Performed Operation Date: 01/03/19 13:00 Actual Procedures p Bronchoscopy Radiology(Bilateral) - Caesar Carrasco MD Operation Date: 01/04/19 14:35 Actual Procedures p Fiberoptic Bronchoscopy with Biopsy, Debulking of Tumor Left Upper Lobe, Control of Hemmorrhage - Ishmael Bowers MD, FACS Hospital Course (1) COPD (chronic obstructive pulmonary disease): Per Dr. Felder's notes Has exacerbation with complication by Lung Mass/Mucopurulent Bronchitis Hemoptysis-resolved now H/O COPD, H/O BOOP Chronic respiratory failure with Hypoxia S/P Bronchoscopy 01/03/19 by (+) lung mass Blood cultures negative Consulted Pulmnology and CT surgery Empirically Started on Zosyn Started on Duonebs, Solumedrol s/p Bronchoscopy with Biopsy by Dr. Bowers -- (+) bleeding which was controlled patient stable after procedure -- discussed with Dr. Aleman patient cleared for d/c today recommend slow Prednisone taper and PO antibiotics x 1 week- Levaquin continue nebs TID, PRN for sob/wheezing ff up with Dr. Carrasco/[facility]- Pulmonology, Dr. Bowers- CT Surgeon in 1 week Endobronchial/lung Mass with hemoptysis management as noted above no recurrence of hemoptysis Chronic respiratory failure Patient ambulated and required 2 L of O2 via nasal cannula while ambulating, 1 L of nasal cannula at rest Oral Thrush: Continue Nystatin Tobacco Use Disorder Patient states that she quit smoking 3 weeks ago Strongly advised to quit smoking Depression Generalized anxiety disorder Continue Buspar, Trazodone Has acute anxiety-we will continue current medications GERD Continue PPI Hyperlipidemia, Continue Crestor Disposition: d/c home ff up with plaster tender Dr. Carrasco and thoracic surgeon Dr. Bowers this week ff up with PCP in 1 week Case discussed with patient in detail She is understanding and comfortable plan of care Total Time Total Time Spent Total Time Spent (In Minutes): 45mins Discharge Plan Discharge Items Patient Disposition: Home - Self-Care Reason For Visit: COPD Discharge Diagnosis: LUNG MASS Discharge Goals: Diagnostic testing and Therapeutic intervention Activity: As commented below Activity Comment: No heavy exertion until cleared by primary care provider Lifting: Wait until after follow-up appointment Exercise/Sports: Wait until after follow-up appointment Driving/Machine Use Comment: No driving Non-emergency contact: Primary Care Provider and [employer] Driver Call non-emergency contact if: you have any medication questions, your symptoms worsen and you have a fever Follow-up/Referrals: Kenzie Feliciano MD [Primary Care Provider] - Diet: Heart Healthy Addtl Provider Instructions: Return to the ER immediately if with significant amount of blood when coughing. Follow-up with Dr. Carrasco ([employer] Driver) [phone] Bowers (Thoracic Surgeon) [phone] in 3-5 days. Please call their office for an appointment. Prescriptions: New ipratropium-albuterol 0.5 mg-3 mg(2.5 mg base)/3 mL Solution For Nebulization 3 ml NEB QIDR 10 Days Qty: 90 RF: 2 levofloxacin [Levaquin] 500 mg tablet 500 mg PO DAILY 7 Days Qty: 7 RF: 0 prednisone 10 mg tablet 10 mg PO DAILY Qty: 41 RF: 0 Continued nystatin 100,000 unit/mL Suspension 1 dose BUCCAL QID RF: 0 lorazepam 0.5 mg Tablet 0.25 mg PO DAILY PRN (Reason: Anxiety) RF: 0 Women's Daily Formula 27-0.4 mg Tablet 1 tab PO QAM RF: 0 fluticasone propionate 50 mcg/actuation spray,suspension 2 spry Intranasal HS RF: 0 ipratropium-albuterol 0.5 mg-3 mg(2.5 mg base)/3 mL Solution For Nebulization 3 ml INHALATION QID PRN (Reason: Shortness Of Breath Or Wheezing) RF: 0 montelukast 10 mg tablet 10 mg PO HS RF: 0 albuterol sulfate [Ventolin HFA] 90 mcg/actuation HFA aerosol inhaler 2 puff Inhalation Q4H PRN (Reason: Wheezing) RF: 0 pantoprazole 40 mg tablet,delayed release (DR/EC) 40 mg PO QAM RF: 0 sennosides [senna] 8.6 mg Tablet 17.2 mg PO BID PRN (Reason: Constipation) RF: 0 cetirizine 10 mg Tablet 10 mg PO DAILY PRN (Reason: Allergy Symptoms) RF: 0 buspirone 5 mg tablet 5 mg PO BID RF: 0 Linzess 72 mcg capsule 72 mg PO QAM RF: 0 fluticasone propion-salmeterol [Advair Diskus] 500-50 mcg/dose Blister With Device 1 inh INHALATION BID RF: 0 rosuvastatin 20 mg tablet 20 mg PO HS RF: 0 Spiriva with HandiHaler 18 mcg Capsule, W/Inhalation Device 1 cap INHALATION QAM RF: 0 venlafaxine 150 mg Tablet Extended Release 24hr 150 mg PO QAM RF: 0 calcium carbonate [Calcium 500] 500 mg calcium (1,250 mg) Tablet 500 mg PO TID RF: 0 polyethylene glycol 3350 [Miralax] 17 gram/dose Powder 17 g PO QAM PRN (Reason: Constipation) RF: 0 ascorbic acid (vitamin C) 1,000 mg Tablet 1,000 mg PO QAM RF: 0 cyanocobalamin (vitamin B-12) 1,000 mcg Tablet 1,000 mcg PO QAM RF: 0 trazodone 50 mg tablet 75 mg PO HS PRN (Reason: Insomnia) RF: 0 Stand-Alone Forms: [facility] Discharge Orders: Discharge Order (Routine); Ordered 01/05/19 Ordered By: Derek Francois Admission Data Admit Date/Time: 01/03/19 15:41 Attending Provider: Derek Francois Admit Provider: Skyler Arrington Primary Care Provider: Kenzie Feliciano Other Providers: Caesar Carrasco ; Reynold Cordero ; Tsering Mcdaniel ; Marlon Burkett ; Chelita Guy ; Ishmael Aleman ; Maya Flaherty ; Meño Harper ; Venice Kim ; Lara Negron ; Joe Fink ; Kostas Bernabe ; Kory Arita ; Ishmael Bowers ; Romeo Felder Service: Telemetry Medical Other Interventions: Discharge Summary Assessment (RN) Last Done: 01/05/19 13:23 DC Date/Time DO NOT enter until pt leaves facility: 01/05/19 14:24
== END 2019-01-05 14:24 | disposition home or self-care (01) ==
LOC: ASU 11:57 → 2N 11:57 → SUATTDRO 15:41

== ENCOUNTER 2019-01-11 08:19 | Inpatient (IN) ==
[2019-01-11] MEDS ORDERED: SODIUM CHLORIDE 0.9% 500 ML IV SCH (09:00)
[2019-01-11 09:18] LABS: Base Excess VBG 5.7 mEq/L; HCO3 VBG 31 mmol/L; PCO2 VBG 46 mmHg (38-50); PO2 VBG 25 mmHg; pH VBG 7.44 (7.36-7.41)
[2019-01-11 09:21] LABS: Oxygen Saturation VBG < 60.0 %
--- NOTE | 2019-01-11 09:30 | XRay Report ---
XR chest 1V portable HISTORY: weakness COMPARISON: Chest 01/04/2019. FINDINGS: The lungs remain hyperexpanded with apical predominant emphysematous changes. The heart is normal in size. No pleural effusions. No pneumothorax. No new focal lung consolidations to suggest pn eumonia. No evidence for pulmonary edema. IMPRESSION: No significant change compared to the prior study. No acute process. Mild emphysema. Electronically signed by: Jonny Hernandez M.D. 01/11/2019 9:29 AM
[2019-01-11 09:36] LABS: Hematocrit (blood only) 37.3 % (37-47); Hemoglobin 13.2 g/dL (12.0-16.0); Immature Granulocytes # (auto) 0.07 K/uL (0.00-0.02); Immature Granulocytes % (auto) 0.5 %; Lymphocytes # (auto) 1.48 K/uL (1.2-3.4); Mean Corpuscular Hgb Conc 35.4 g/dL (32-36); Mean Corpuscular Volume 89.9 fL (80-100); Mean Platelet Volume 8.4 fL (7.4-10.4); Monocytes # (auto) 0.63 K/uL (0.11-0.59); Monocytes % (auto) 4.3 %; Neutrophils # (auto) 12.59 K/uL (1.4-6.5); Neutrophils % (auto) 85.2 %; Platelet Count 281 K/uL (130-400); RDW Coefficient of Variation 13.5 % (11.5-14.5); RDW Standard Deviation 44.4 fL (36.4-46.3); Red Blood Count 4.15 M/uL (4.2-5.4); White Blood Count 14.77 K/uL (4.8-10.8)
--- NOTE | 2019-01-11 09:39 | CT Scan Report ---
HEAD CT NONCONTRAST CT DOSE: 1277.12 mGycm HISTORY: confusion TECHNIQUE: Multiaxial CT images of the head were performed without the use of intravenous contrast. A utomated exposure control was utilized for this study. A dose lowering technique was utilized adheri ng to the principles of ALARA. Comparison: None. Findings: The paranasal sinuses and mastoid air cells are clear. The calvarium and skull base are int act. The ventricles and sulci are within normal limits. There is no mass, hematoma, midline shift, or acute infarct. Impression: No acute intracranial abnormality. Electronically signed by: Jonny Hernandez M.D. 01/11/2019 9:38 AM
[2019-01-11 09:57] LABS: Alanine Aminotransferase 26 U/L (12-78); Albumin Level 3.6 gm/dl (3.4-5.0); Aspartate Aminotransferase 21 U/L (15-37); BUN Creatinine Ratio 19.5 (10-20); Blood Urea Nitrogen 15 mg/dl (7-18); Calcium 8.1 mg/dl (8.5-10.1); Carbon Dioxide 30 mmol/L (21-32); Chloride 90 mmol/L (98-107); Est GFR (African American) 86.1; Est GFR (Non-African American) 74.3; Glucose 91 mg/dl (70-99); Potassium 3.5 mmol/L (3.5-5.1); Sodium 125 mmol/L (136-145)
[2019-01-11 10:09] LABS: Albumin Globulin Ratio 1.1 (0.9-2); Alkaline Phosphatase 49 U/L (45-117); Creatine Kinase 103 U/L (26-192); Globulin 3.3 gm/dl (2.5-4.0); Total Protein 6.9 gm/dl (6.4-8.2); Troponin I < 0.015 ng/ml (0-0.045)
[2019-01-11 10:33] LABS: INR 1.2 (0.9-1.1); Partial Thromboplastin Ratio 0.9; Partial Thromboplastin Time 23.8 Seconds (21.0-31.0); Prothrombin Time 11.7 Seconds (9.0-12.0)
[2019-01-11 10:57] LABS: Appearance Urine Clear (Clear); Bilirubin Urine Negative (Negative); Blood Urine Negative (Negative); Color Urine Yellow; Glucose Urine UA Negative (Negative); Ketones Urine 1+ (Negative); Leukocyte Esterase Urine Negative (Negative); Nitrite Urine Negative (Negative); Protein Urine Negative (Negative); Specific Gravity Urine 1.019 (1.000-1.030); Urobilinogen Urine Negative (Negative); pH Urine 7.5 (4.5-7.5)
--- NOTE | 2019-01-11 11:42 | Emergency Department Note ---
Entered by Stephanie Rangel acting as a scribe for Alonzo Jackson DO History of Present Illness General Chief complaint: Confusion Stated complaint: CONFUSED MORE THAN NORMAL,FALL,RT WRIST ALEX Time Seen by Provider: 01/11/19 08:38 Source: patient and RN notes reviewed Mode of arrival: ambulatory Limitations: altered mental status History of Present Illness Onset (ago): hour(s) (this morning) Location: head (confusion) and upper extremity (right wrist) Pain Consistency: + other (episode) Maximum Pain Intensity: 5 Quality: + other (fall, confusion) Associated symptoms: + confusion, + shortness of breath and + other (The patient complains of right wrist pain. ); no loss of appetite The patient is a 73 year old female with a history of BOOP, COPD and lung cancer who presents to the ED with complaints of an episode of confusion that onset this morning. Per triage note, the patient was dropped off at the front desk clerk from [place]. It states that they found the patient driving around [place] and was confused. The patient denies driving in her car today. The patient mentions that she recently had a fall that resulted in a bruise on her right wrist. When asked why she came to the ED today, she notes that she could not breathe well. She states that right now her breathing is not terrible. The patient denies loss of appetite. She notes that she was recently discharged for the hospital and did not feel good when she went home. The patient states that she wears oxygen when she sleeps or is active. She notes that she has not been sleeping well lately. Home Medications Home Medications Medication Instructions Recorded Confirmed Type Spiriva with HandiHaler 1 cap INHALATION QAM 11/28/18 01/11/19 History albuterol sulfate [Ventolin HFA] 2 puff INHALATION Q4H PRN 11/28/18 01/11/19 History ascorbic acid (vitamin C) 1,000 mg PO QAM 11/28/18 01/11/19 History calcium carbonate [Calcium 500] 500 mg PO TID 11/28/18 01/11/19 History cyanocobalamin (vitamin B-12) 1,000 mcg PO QAM 11/28/18 01/11/19 History fluticasone propion-salmeterol 1 inh INHALATION BID 11/28/18 01/11/19 History [Advair Diskus] fluticasone propionate 2 spry INTRANASAL HS 11/28/18 01/11/19 History ipratropium-albuterol 3 ml INHALATION QID PRN 11/28/18 01/11/19 History montelukast 10 mg PO HS 11/28/18 01/11/19 History pantoprazole 40 mg PO QAM 11/28/18 01/11/19 History polyethylene glycol 3350 [Miralax] 17 g PO QAM PRN 11/28/18 01/11/19 History rosuvastatin 20 mg PO HS 11/28/18 01/11/19 History sennosides [senna] 17.2 mg PO BID PRN 11/28/18 01/11/19 History trazodone 75 mg PO HS PRN 11/28/18 01/11/19 History venlafaxine 150 mg PO QAM 11/28/18 01/11/19 History Women's Daily Formula 1 tab PO QAM 12/31/18 01/11/19 History ipratropium-albuterol 3 ml NEB QIDR 10 Days #90 ml 01/05/19 01/11/19 Rx azithromycin [Zithromax] 250 mg PO 3XWK 01/11/19 01/11/19 History bupropion HCl [Wellbutrin SR] 100 mg PO DAILY 01/11/19 01/11/19 History clonazepam [Klonopin] 0.25 mg PO HS 01/11/19 01/11/19 History docusate sodium [Colace] 100 mg PO BID 01/11/19 01/11/19 History prednisone 20 mg PO UD PRN 01/11/19 01/11/19 History wheat dextrin [Benefiber Clear SF 1 packet PO DAILY 01/11/19 01/11/19 History (dextrin)] Allergies Allergy/AdvReac Type Severity Reaction Status Date / Time No Known Allergies Allergy Verified 01/11/19 09:15 Past Med/Surg History Medical History BOOP (bronchiolitis obliterans with organizing pneumonia) Asthma Basal cell carcinoma (BCC) COPD (chronic obstructive pulmonary disease) inhalers daily/prn KURTIS (generalized anxiety disorder) GERD (gastroesophageal reflux disease) H/O compression fracture of spine Hiatal hernia History of anesthesia reaction felt bronchoscopy procedure History of colon polyps Hyperlipidemia On home oxygen therapy o2 @ 2L N/C hs and prn Osteoarthritis 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, jaw Osteoporosis Recurrent major depression Scoliosis Slow transit constipation Smoker Squamous cell carcinoma Surgical History History of Mohs micrographic surgery for skin cancer History of abdominoplasty History of arthroplasty of right hip History of bilateral cataract extraction History of bronchoscopy x1, and now scheduled for another 01/03/19 History of colonoscopy History of detached retina repair right eye History of dilatation and curettage History of esophagogastroduodenoscopy (EGD) History of gynecologic surgery benign uterine cyst removal History of left oophorectomy History of open reduction and internal fixation (ORIF) procedure right hip History of repair of left rotator cuff History of repair of right rotator cuff History of thumb surgery left History of tonsillectomy and adenoidectomy History of wisdom tooth extraction Family History Mother Family hx of colon cancer Other Family history non-contributory No family history of adverse response to anesthesia Social History Preferred Language: [place] Communication Ability: Effective Beliefs That Will Affect Care: None marital status: Unknown Current Living Situation: Other Current Living Situation Comment: Lives in the [facility] of the [facility] Feels Safe at Home: Yes Smoking Status: Unknown if ever smoked Hx Alcohol Use: Yes Alcohol type: wine Hx Substance Use: No Review of Systems See HPI for pertinent positives & negatives. and A total of 10 systems reviewed and were otherwise negative Physical Exam Vital Signs Vital Signs - 24 hr 01/11/19 08:25 01/11/19 08:58 01/11/19 09:59 Temperature 37.2 C Temperature Source Oral Sepsis Recent Fever Within 48 Hours No Sepsis Action Taken by Nursing No Action Required Pulse Rate 101 H Pulse Rate [Right] 94 H Respiratory Rate 16 20 Respiratory Effort / Characteristics Non-Labored Respiratory Depth Normal Blood Pressure 145/74 H Blood Pressure [Right Arm] 150/68 H Blood Pressure Mean 97 Blood Pressure Mean [Right Arm] 95 Blood Pressure Position Sitting Pulse Oximetry 90 89 L 97 Oxygen Delivery Method Room Air Room Air Room Air CONSTITUTIONAL/VITAL SIGNS: Reviewed / noted above. GENERAL: Non-toxic in appearance. Drowsy. INTEGUMENTARY: Warm, dry, and [place]. HEAD: Normocephalic. EYES: without scleral icterus or trauma. ENT/OROPHARYNX: clear and moist. LYMPHADENOPATHY/NECK: Is supple without lymphadenopathy or meningismus. RESPIRATORY: Lungs clear and equal. CARDIOVASCULAR: Regular rate and rhythm. GI/ABDOMEN: Soft and nontender. No organomegaly or pulsatile mass. No rebound or guarding. Normal bowel sounds. EXTREMITIES: Warm and well perfused. BACK: No CVA tenderness. NEUROLOGICAL: Intact without focal deficits. Drowsy. PSYCHIATRIC: normal affect. MUSCULOSKELETAL: Normally developed with good muscle tone. Course 0845: Past medical records reviewed. The patient was evaluated in room A12B. A complete history and physical examination was performed. 1133: I reviewed the patient's case with Anya Hernandez. She will evaluate the patient for further management. Consultations Consultation #1: 1133: I reviewed the patient's case with Anya Hernandez. She will evaluate the patient for further management. Administered Medications Discontinued Medications Sodium Chloride (Nss) 500 mls @ 999 mls/hr IV .Q31M MARIMAR Stop: 01/11/19 09:30 Last Infusion: 01/11/19 10:32 Dose: 0 mls/hr Documented by: [id number] Admin: 01/11/19 09:53 Dose: 999 mls/hr Documented by: [id number] Medical Decision Making Differential Diagnosis Differential diagnoses: Metabolic, infection, hypoglycemia, electrolyte abnormalities, cardiac sources, intracerebral event, toxicologic, neurologic, as well as others were entertained. Medical Records Attestation: I reviewed the patient's medical records. Home Medications Current Medication List: was personally reviewed by ak Laboratory Data Attestation: I reviewed the patient's lab results. Result diagrams: 01/11/19 09:07 01/11/19 09:07 Lab Results 01/11/19 01/11/19 01/11/19 Range/Units 08:59 09:07 09:07 WBC 14.77 H (4.8-10.8) K/uL RBC 4.15 L (4.2-5.4) M/uL Hgb 13.2 (12.0-16.0) g/dL Hct 37.3 (37-47) % MCV 89.9 (80-100) fL MCH 31.8 (25-34) pg MCHC 35.4 (32-36) g/dL RDW Std Deviation 44.4 (36.4-46.3) fL RDW Coeff of Yamini 13.5 (11.5-14.5) % Plt Count 281 (130-400) K/uL MPV 8.4 (7.4-10.4) fL Immature Gran % (Auto) 0.5 % Neut % (Auto) 85.2 % Lymph % (Auto) 10.0 % [place] % (Auto) 4.3 % Eos % (Auto) 0.0 % Baso % (Auto) 0.0 % Immature Gran # (Auto) 0.07 H (0.00-0.02) K/uL Neut # (Auto) 12.59 H (1.4-6.5) K/uL Lymph # (Auto) 1.48 (1.2-3.4) K/uL [place] # (Auto) 0.63 H (0.11-0.59) K/uL Eos # (Auto) 0.00 (0-0.5) K/uL Baso # (Auto) 0.00 (0-0.2) K/uL PT Cancelled INR Cancelled APTT (21.0-31.0) Seconds PTT Ratio VBG pH 7.44 H (7.36-7.41) VBG pCO2 46 (38-50) mmHg VBG pO2 25 mmHg VBG HCO3 31 mmol/L VBG O2 Saturation < 60.0 % VBG Base Excess 5.7 mEq/L Barometric Pressure 719.3 mm/Hg Sodium (136-145) mmol/L Potassium (3.5-5.1) mmol/L Chloride (98-107) mmol/L Carbon Dioxide (21-32) mmol/L Anion Gap (3-11) BUN (7-18) mg/dl Creatinine (0.6-1.2) mg/dl Est Cr Clr Drug Dosing Est GFR ( Amer) Est GFR (Non-Af Amer) BUN/Creatinine Ratio (10-20) Glucose (70-99) mg/dl POC Lactic Acid Pankaj (0.90-1.70) mmol/L Calcium (8.5-10.1) mg/dl Total Bilirubin (0.2-1) mg/dl AST (15-37) U/L ALT (12-78) U/L Alkaline Phosphatase (45-117) U/L Total Creatine Kinase (26-192) U/L Troponin I (0-0.045) ng/ml Total Protein (6.4-8.2) gm/dl Albumin (3.4-5.0) gm/dl Globulin (2.5-4.0) gm/dl Albumin/Globulin Ratio (0.9-2) TSH (0.300-4.500) uIu/ml Specimen Hemolysis Urine Color Urine Appearance (Clear) Urine pH (4.5-7.5) Ur Specific [place] (1.000-1.030) Urine Protein (Negative) Urine Glucose (UA) (Negative) Urine Ketones (Negative) Urine Blood (Negative) Urine Nitrite (Negative) Urine Bilirubin (Negative) Urine Urobilinogen (Negative) Ur Leukocyte Esterase (Negative) 01/11/19 01/11/19 01/11/19 Range/Units 09:07 09:11 10:10 WBC (4.8-10.8) K/uL RBC (4.2-5.4) M/uL Hgb (12.0-16.0) g/dL Hct (37-47) % MCV (80-100) fL MCH (25-34) pg MCHC (32-36) g/dL RDW Std Deviation (36.4-46.3) fL RDW Coeff of Yamini (11.5-14.5) % Plt Count (130-400) K/uL MPV (7.4-10.4) fL Immature Gran % (Auto) % Neut % (Auto) % Lymph % (Auto) % [place] % (Auto) % Eos % (Auto) % Baso % (Auto) % Immature Gran # (Auto) (0.00-0.02) K/uL Neut # (Auto) (1.4-6.5) K/uL Lymph # (Auto) (1.2-3.4) K/uL [place] # (Auto) (0.11-0.59) K/uL Eos # (Auto) (0-0.5) K/uL Baso # (Auto) (0-0.2) K/uL PT 11.7 INR 1.2 H APTT 23.8 (21.0-31.0) Seconds PTT Ratio 0.9 VBG pH (7.36-7.41) VBG pCO2 (38-50) mmHg VBG pO2 mmHg VBG HCO3 mmol/L VBG O2 Saturation % VBG Base Excess mEq/L Barometric Pressure mm/Hg Sodium 125 L (136-145) mmol/L Potassium 3.5 (3.5-5.1) mmol/L Chloride 90 L (98-107) mmol/L Carbon Dioxide 30 (21-32) mmol/L Anion Gap 5.0 (3-11) BUN 15 (7-18) mg/dl Creatinine 0.79 (0.6-1.2) mg/dl Est Cr Clr Drug Dosing Not Reportable Est GFR ( Amer) 86.1 Est GFR (Non-Af Amer) 74.3 BUN/Creatinine Ratio 19.5 (10-20) Glucose 91 (70-99) mg/dl POC Lactic Acid Pankaj 0.90 (0.90-1.70) mmol/L Calcium 8.1 L (8.5-10.1) mg/dl Total Bilirubin 1.0 (0.2-1) mg/dl AST 21 (15-37) U/L ALT 26 (12-78) U/L Alkaline Phosphatase 49 (45-117) U/L Total Creatine Kinase 103 (26-192) U/L Troponin I < 0.015 (0-0.045) ng/ml Total Protein 6.9 (6.4-8.2) gm/dl Albumin 3.6 (3.4-5.0) gm/dl Globulin 3.3 (2.5-4.0) gm/dl Albumin/Globulin Ratio 1.1 (0.9-2) TSH 0.815 (0.300-4.500) uIu/ml Specimen Hemolysis Urine Color Urine Appearance (Clear) Urine pH (4.5-7.5) Ur Specific [place] (1.000-1.030) Urine Protein (Negative) Urine Glucose (UA) (Negative) Urine Ketones (Negative) Urine Blood (Negative) Urine Nitrite (Negative) Urine Bilirubin (Negative) Urine Urobilinogen (Negative) Ur Leukocyte Esterase (Negative) 01/11/19 Range/Units 10:46 WBC (4.8-10.8) K/uL RBC (4.2-5.4) M/uL Hgb (12.0-16.0) g/dL Hct (37-47) % MCV (80-100) fL MCH (25-34) pg MCHC (32-36) g/dL RDW Std Deviation (36.4-46.3) fL RDW Coeff of Yamini (11.5-14.5) % Plt Count (130-400) K/uL MPV (7.4-10.4) fL Immature Gran % (Auto) % Neut % (Auto) % Lymph % (Auto) % [place] % (Auto) % Eos % (Auto) % Baso % (Auto) % Immature Gran # (Auto) (0.00-0.02) K/uL Neut # (Auto) (1.4-6.5) K/uL Lymph # (Auto) (1.2-3.4) K/uL [place] # (Auto) (0.11-0.59) K/uL Eos # (Auto) (0-0.5) K/uL Baso # (Auto) (0-0.2) K/uL PT INR APTT (21.0-31.0) Seconds PTT Ratio VBG pH (7.36-7.41) VBG pCO2 (38-50) mmHg VBG pO2 mmHg VBG HCO3 mmol/L VBG O2 Saturation % VBG Base Excess mEq/L Barometric Pressure mm/Hg Sodium (136-145) mmol/L Potassium (3.5-5.1) mmol/L Chloride (98-107) mmol/L Carbon Dioxide (21-32) mmol/L Anion Gap (3-11) BUN (7-18) mg/dl Creatinine (0.6-1.2) mg/dl Est Cr Clr Drug Dosing Est GFR ( Amer) Est GFR (Non-Af Amer) BUN/Creatinine Ratio (10-20) Glucose (70-99) mg/dl POC Lactic Acid Pankaj (0.90-1.70) mmol/L Calcium (8.5-10.1) mg/dl Total Bilirubin (0.2-1) mg/dl AST (15-37) U/L ALT (12-78) U/L Alkaline Phosphatase (45-117) U/L Total Creatine Kinase (26-192) U/L Troponin I (0-0.045) ng/ml Total Protein (6.4-8.2) gm/dl Albumin (3.4-5.0) gm/dl Globulin (2.5-4.0) gm/dl Albumin/Globulin Ratio (0.9-2) TSH (0.300-4.500) uIu/ml Specimen Hemolysis Urine Color Yellow Urine Appearance Clear (Clear) Urine pH 7.5 (4.5-7.5) Ur Specific [place] 1.019 (1.000-1.030) Urine Protein Negative (Negative) Urine Glucose (UA) Negative (Negative) Urine Ketones 1+ H (Negative) Urine Blood Negative (Negative) Urine Nitrite Negative (Negative) Urine Bilirubin Negative (Negative) Urine Urobilinogen Negative (Negative) Ur Leukocyte Esterase Negative (Negative) Imaging Data Radiologist's Impression: Radiology results as stated below per my review and the radiologist's interpretation: XR chest 1V portable HISTORY: weakness COMPARISON: Chest 01/04/2019. FINDINGS: The lungs remain hyperexpanded with apical predominant emphysematous changes. The heart is normal in size. No pleural effusions. No pneumothorax. No new focal lung consolidations to suggest pneumonia. No evidence for pulmonary edema. IMPRESSION: No significant change compared to the prior study. No acute process. Mild emphysema. Electronically signed by: Jonny Hernandez M.D. 01/11/2019 9:29 AM Dictated: 01/11/19922 Transcribed: 01/11/[address] CT DOSE: 1277.12 mGycm HISTORY: confusion TECHNIQUE: Multiaxial CT images of the head were performed without the use of intravenous contrast. Automated exposure control was utilized for this study. A dose lowering technique was utilized adhering to the principles of ALARA. Comparison: None. Findings: The paranasal sinuses and mastoid air cells are clear. The calvarium and skull base are intact. The ventricles and sulci are within normal limits. There is no mass, hematoma, midline shift, or acute infarct. Impression: No acute intracranial abnormality. Electronically signed by: Jonny Hernandez M.D. 01/11/2019 9:38 AM Dictated: 01/11/19931 Transcribed: 01/11/19931 ECG Data Attestation: I personally reviewed and interpreted this ECG as follows: Indication: other (confusion) Rate (beats per minute): 90 Rhythm: normal sinus Findings: no ST elevation and no ectopy Blood Pressure Blood Pressure Findings: Elevated blood pressure Blood Pressure Disposition: further management by hospitalist MILLA Barboza This is a 73-year-old female who presents to the ED with a chief complaint confusion. The patient states that she has not been feeling well since she was discharged. She reports some mild shortness of breath. Today she was driving her car around the nursing facility where she resides. She seemed confused and was brought here by EMS. The patient's physical exam did not reveal any obvious significant abnormalities. She occasionally appears to be drowsy and falls asleep during the exam in conversation and speaks nonsensically at those times. While she is awake, she answers questions appropriately. A CT scan of the brain and chest x-ray were negative for acute disease. White blood cell count was 14.7. Sodium is low at 125. Troponin was negative, TSH was normal and a VBG was unremarkable. She had normal acid-base status with adequate ventilation and oxygenation. Urine showed 1+ ketones but otherwise no infection. The patient was given a liter of normal saline IV. Because of her hyponatremia and changes in mental status, she will be seen by the hospitalist for further inpatient evaluation and care. Impression & Plan Hyponatremia, Confusion The scribe's documentation has been prepared under my direction and personally reviewed by me in its entirety. I confirm that the note above accurately reflects all work, treatment, procedures, and medical decision making performed by me.
[2019-01-11] MEDS ORDERED: SODIUM CHLORIDE 0.9% 1000ML 1,000 ML IV SCH (12:30)
[2019-01-11 13:29] LABS: Calcium 7.7 mg/dl (8.5-10.1); Creatinine Clr Calc Pharmacy 67.2 ml/min; Est GFR (African American) 105.4; Est GFR (Non-African American) 90.9; Potassium 3.3 mmol/L (3.5-5.1)
--- NOTE | 2019-01-11 13:33 | XRay Report ---
XR hand RT min 3V routine CLINICAL HISTORY: fall, pain COMPARISON: Right hand radiographs May 01, 2016. FINDINGS: Note is made of an impacted nondisplaced fracture of the distal metaphysis of the right ra dius. There is right wrist soft tissue swelling. No acute fracture within the right hand is noted. Ca rpal bones appear intact. There is severe osteoarthritis within multiple interphalangeal joints of th e right hand. IMPRESSION: Impacted nondisplaced distal right radial fracture. Although age indeterminate, this is l ikely acute. Electronically signed by: Harris Barahona M.D. 01/11/2019 1:32 PM
--- NOTE | 2019-01-11 14:15 | History & Physical Report ---
Date of Service January 11, 2019 Assessment & Plan (1) Altered mental status: (2) Hyponatremia: -Admit to telemetry -Patient presenting from [place] [facility] after she was found in her car confused -Recent admission to [facility] 01/03 through 01/05 for observation after she developed bleeding during an outpatient bronchoscopy. 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 Ruggiero -If patient does not improve once sodium is corrected, consider brain MRI (3) Squamous cell carcinoma lung: -Recently diagnosed -Following with Dr. Bowers who ordered outpatient PET scan and brain MRI to be completed on 01/16 (4) COPD (chronic obstructive pulmonary disease): -Has some wheezing on exam however suspect this is baseline -Patient saturating well on chronic 2 L of oxygen, no reports of worsening shortness of breath -Continue home inhalers -During recent admission, patient was placed on Levaquin for 7 days and long prednisone taper, will continue both to complete course (5) Anxiety: (6) Depression: -Continue bupropion, buspirone, venlafaxine (7) GERD (gastroesophageal reflux disease): -Continue PPI (8) DVT prophylaxis: -SQ Lovenox History of Present Illness Chief Complaint: Altered mental status Primary Care Provider: Kenzie Feliciano MD 73-year-old female who presents to the ED with altered mental status. Patient was recently admitted to [facility] 01/03 through 01/05 for observation after she developed bleeding during an outpatient bronchoscopy. During that bronchoscopy, patient was found to have a left upper lobe lesion however given friability, there was unable to be biopsied at that time. Patient was then taken back to the OR with Dr. Bowers and had a repeat bronchoscopy with successful biopsy of the lesion. Pathology has subsequently showed squamous cell carcinoma. Patient was discharged on a long prednisone taper and Levaquin for 7 days. Patient was seen by Dr. Bowers as an outpatient yesterday who was planning on brain MRI and PET scan. History is currently somewhat limited from the patient secondary to her mental status. Per her sister, she noted the patient developing some confusion about 4 days ago. This is been progressively getting worse. Last night, patient was up for most of the night and did suffer a fall injuring her right wrist. No reported strokelike symptoms or loss of consciousness. Patient denies chest pain. Reports her breathing is currently at baseline. She denies abdominal pain, nausea, vomiting, diarrhea. No fevers or chills. She denies any urinary symptoms. In the ED, labs show sodium 125. Other labs are unremarkable, vital signs are stable. Head CT is negative for acute findings. Allergies Allergy/AdvReac Type Severity Reaction Status Date / Time No Known Allergies Allergy Verified 01/11/19 09:15 Home Medications Home Medications Medication Instructions Recorded Confirmed Type Spiriva with HandiHaler 1 cap INHALATION QAM 11/28/18 01/11/19 History albuterol sulfate [Ventolin HFA] 2 puff INHALATION Q4H PRN 11/28/18 01/11/19 History ascorbic acid (vitamin C) 1,000 mg PO QAM 11/28/18 01/11/19 History calcium carbonate [Calcium 500] 500 mg PO TID 11/28/18 01/11/19 History cyanocobalamin (vitamin B-12) 1,000 mcg PO QAM 11/28/18 01/11/19 History fluticasone propion-salmeterol 1 inh INHALATION BID 11/28/18 01/11/19 History [Advair Diskus] fluticasone propionate 2 spry INTRANASAL HS 11/28/18 01/11/19 History ipratropium-albuterol 3 ml INHALATION QID PRN 11/28/18 01/11/19 History montelukast 10 mg PO HS 11/28/18 01/11/19 History pantoprazole 40 mg PO QAM 11/28/18 01/11/19 History polyethylene glycol 3350 [Miralax] 17 g PO QAM PRN 11/28/18 01/11/19 History rosuvastatin 20 mg PO HS 11/28/18 01/11/19 History sennosides [senna] 17.2 mg PO BID PRN 11/28/18 01/11/19 History trazodone 75 mg PO HS PRN 11/28/18 01/11/19 History venlafaxine 150 mg PO QAM 11/28/18 01/11/19 History Women's Daily Formula 1 tab PO QAM 12/31/18 01/11/19 History ipratropium-albuterol 3 ml NEB QIDR 10 Days #90 ml 01/05/19 01/11/19 Rx aspirin 81 mg PO DAILY 01/11/19 01/11/19 History azithromycin [Zithromax] 250 mg PO 3XWK 01/11/19 01/11/19 History bupropion HCl [Wellbutrin SR] 100 mg PO DAILY 01/11/19 01/11/19 History buspirone 5 mg PO TID 01/11/19 01/11/19 History cetirizine 10 mg PO DAILY PRN 01/11/19 01/11/19 History docusate sodium [Colace] 100 mg PO BID 01/11/19 01/11/19 History levofloxacin 500 mg PO DAILY 01/11/19 01/11/19 History linaclotide [Linzess] 145 mcg PO DAILY 01/11/19 01/11/19 History lorazepam 0.5 mg PO BID PRN 01/11/19 01/11/19 History prednisone 10 mg PO UD 01/11/19 01/11/19 History tamsulosin 0.4 mg PO DAILY 01/11/19 01/11/19 History wheat dextrin [Benefiber Clear SF 1 packet PO DAILY PRN 01/11/19 01/11/19 History (dextrin)] Past Med/Surg History Medical History Hyperlipidemia (Chronic) On home oxygen therapy (Chronic) o2 @ 2L N/C hs and prn Hiatal hernia (Chronic) GERD (gastroesophageal reflux disease) (Chronic) Scoliosis (Chronic) Osteoarthritis (Chronic) History of anesthesia reaction (Chronic) felt bronchoscopy procedure History of colon polyps (Chronic) Anxiety (Chronic) Depression (Chronic) Osteoporosis (Chronic) Chronic constipation (Chronic) Squamous cell carcinoma lung (Chronic) 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) COPD (chronic obstructive pulmonary disease) (Chronic) Surgical History History of bilateral cataract extraction (Chronic) History of detached retina repair (Chronic) right eye History of tonsillectomy and adenoidectomy (Chronic) History of wisdom tooth extraction (Chronic) History of Mohs micrographic surgery for skin cancer (Chronic) History of arthroplasty of right hip (Chronic) History of open reduction and internal fixation (ORIF) procedure (Chronic) right hip History of repair of right rotator cuff (Chronic) History of repair of left rotator cuff (Chronic) History of thumb surgery (Chronic) left History of dilatation and curettage (Chronic) History of left oophorectomy (Chronic) Family History Mother Family hx of colon cancer Social History Preferred Language: Moldovan Communication Ability: Effective General Accountant Required: No Beliefs That Will Affect Care: None marital status: Unknown Current Living Situation: Personal Care Facility Current Living Situation Comment: Lives in the independent side of the [facility] Other Information That Helps Us Care for You: No Feels Safe at Home: Yes Safety Concerns: Feels Safe At This Time Smoking Status: Former smoker Tobacco Type: cigarettes Do You Dip or Chew Tobacco: No Second Hand Exposure: No Tobacco Cessation Education Requested by Patient: No Hx Alcohol Use: Yes Alcohol type: wine Hx Substance Use: No Review of Systems Review of Systems: ROS per HPI, all other systems reviewed and negative -felt to be somewhat limited secondary to patient's confusion Physical Exam Constitutional: WD/WN, vitals as above Eyes: PERRL, conjunctivae normal, anicteric sclerae ENMT: external ear and nose normal, oropharynx normal Respiratory: normal respiratory effort; no respiratory distress Auscultation: + diminished lung sounds and + wheezes (Bilateral, scattered, end expiratory) Cardiovascular: Rate/Rhythm: regular rate and regular rhythm Vessels: normal peripheral pulses Extremities: no edema Gastrointestinal (Abdomen): normal bowel sounds, soft, nontender, no hepatosplenomegaly Musculoskeletal: no cyanosis or clubbing, extremities motor strength 5/5 Extremities: + wrist abnormality (Ecchymosis extending over the dorsal aspect of the right hand with distal radius point tenderness) Right (Right hand window clerk strength strong) Skin: no rashes, warm and dry Neurologic: PERRL, EOMI, accommodation nl, no face palsy, no dysarthria Psychiatric: Orientation: oriented to person and oriented to place; + not alert (Slow to respond at times, occasionally dozing off during exam) and + not oriented to time (States year is 2010, day of the week , month) Affect: euthymic affect Insight: + limited insight Results & Data Vital Signs (Past 12 Hours) Vital Signs Temp Pulse Pulse Resp BP BP Pulse Ox 01/11/19 13:03 94 H 16 164/74 H 95 01/11/19 11:30 88 14 153/83 H 96 01/11/19 09:59 94 H 20 150/68 H 97 01/11/19 08:58 89 L 01/11/19 08:25 37.2 C 101 H 16 145/74 H 90 Laboratory Results Laboratory Last Values WBC 14.77 K/uL (4.8-10.8) H 01/11/19 09:07 RBC 4.15 M/uL (4.2-5.4) L 01/11/19 09:07 Hgb 13.2 g/dL (12.0-16.0) 01/11/19 09:07 Hct 37.3 % (37-47) 01/11/19 09:07 MCV 89.9 fL (80-100) 01/11/19 09:07 MCH 31.8 pg (25-34) 01/11/19 09:07 MCHC 35.4 g/dL (32-36) 01/11/19 09:07 RDW Std Deviation 44.4 fL (36.4-46.3) 01/11/19 09:07 RDW Coeff of Yamini 13.5 % (11.5-14.5) 01/11/19 09:07 Plt Count 281 K/uL (130-400) 01/11/19 09:07 MPV 8.4 fL (7.4-10.4) 01/11/19 09:07 Immature Gran % (Auto) 0.5 % 01/11/19 09:07 Neut % (Auto) 85.2 % 01/11/19 09:07 Lymph % (Auto) 10.0 % 01/11/19 09:07 [place] % (Auto) 4.3 % 01/11/19 09:07 Eos % (Auto) 0.0 % 01/11/19 09:07 Baso % (Auto) 0.0 % 01/11/19 09:07 Immature Gran # (Auto) 0.07 K/uL (0.00-0.02) H 01/11/19 09:07 Neut # (Auto) 12.59 K/uL (1.4-6.5) H 01/11/19 09:07 Lymph # (Auto) 1.48 K/uL (1.2-3.4) 01/11/19 09:07 [place] # (Auto) 0.63 K/uL (0.11-0.59) H 01/11/19 09:07 Eos # (Auto) 0.00 K/uL (0-0.5) 01/11/19 09:07 Baso # (Auto) 0.00 K/uL (0-0.2) 01/11/19 09:07 PT 11.7 Seconds (9.0-12.0) 01/11/19 10:10 INR 1.2 (0.9-1.1) H 01/11/19 10:10 APTT 23.8 Seconds (21.0-31.0) 01/11/19 10:10 PTT Ratio 0.9 01/11/19 10:10 VBG pH 7.44 (7.36-7.41) H 01/11/19 08:59 VBG pCO2 46 mmHg (38-50) 01/11/19 08:59 VBG pO2 25 mmHg 01/11/19 08:59 VBG HCO3 31 mmol/L 01/11/19 08:59 VBG O2 Saturation < 60.0 % 01/11/19 08:59 VBG Base Excess 5.7 mEq/L 01/11/19 08:59 Barometric Pressure 719.3 mm/Hg 01/11/19 08:59 Sodium 130 mmol/L (136-145) L 01/11/19 13:01 Potassium 3.3 mmol/L (3.5-5.1) L 01/11/19 13:01 Chloride 93 mmol/L (98-107) L 01/11/19 13:01 Carbon Dioxide 28 mmol/L (21-32) 01/11/19 13:01 Anion Gap 9.0 (3-11) 01/11/19 13:01 BUN 13 mg/dl (7-18) 01/11/19 13:01 Creatinine 0.59 mg/dl (0.6-1.2) L 01/11/19 13:01 Est Cr Clr Drug Dosing 67.2 ml/min 01/11/19 13:01 Est GFR ( Amer) 105.4 01/11/19 13:01 Est GFR (Non-Af Amer) 90.9 01/11/19 13:01 BUN/Creatinine Ratio 22.0 (10-20) H 01/11/19 13:01 Glucose 97 mg/dl (70-99) 01/11/19 13:01 Osmolality 263 mOsm/kg (280-300) L 01/11/19 09:07 POC Lactic Acid Pankaj 0.90 mmol/L (0.90-1.70) 01/11/19 09:11 Calcium 7.7 mg/dl (8.5-10.1) L 01/11/19 13:01 Total Bilirubin 1.0 mg/dl (0.2-1) 01/11/19 09:07 AST 21 U/L (15-37) 01/11/19 09:07 ALT 26 U/L (12-78) 01/11/19 09:07 Alkaline Phosphatase 49 U/L (45-117) 01/11/19 09:07 Total Creatine Kinase 103 U/L (26-192) 01/11/19 09:07 Troponin I < 0.015 ng/ml (0-0.045) 01/11/19 09:07 Total Protein 6.9 gm/dl (6.4-8.2) 01/11/19 09:07 Albumin 3.6 gm/dl (3.4-5.0) 01/11/19 09:07 Globulin 3.3 gm/dl (2.5-4.0) 01/11/19 09:07 Albumin/Globulin Ratio 1.1 (0.9-2) 01/11/19 09:07 TSH 0.815 uIu/ml (0.300-4.500) 01/11/19 09:07 Specimen Hemolysis 01/11/19 09:07 Urine Color Yellow 01/11/19 10:46 Urine Appearance Clear (Clear) 01/11/19 10:46 Urine pH 7.5 (4.5-7.5) 01/11/19 10:46 Ur Specific [place] 1.019 (1.000-1.030) 01/11/19 10:46 Urine Protein Negative (Negative) 01/11/19 10:46 Urine Glucose (UA) Negative (Negative) 01/11/19 10:46 Urine Ketones 1+ (Negative) H 01/11/19 10:46 Urine Blood Negative (Negative) 01/11/19 10:46 Urine Nitrite Negative (Negative) 01/11/19 10:46 Urine Bilirubin Negative (Negative) 01/11/19 10:46 Urine Urobilinogen Negative (Negative) 01/11/19 10:46 Ur Leukocyte Esterase Negative (Negative) 01/11/19 10:46 Urine Osmolality 566 mOsm/kg (500-800) 01/11/19 10:46 Ur Random Sodium 76 mmol/L 01/11/19 10:[address] Impression: No acute intracranial abnormality. CXR IMPRESSION: No significant change compared to the prior study. No acute process. Mild emphysema. RIGHT HAND XR IMPRESSION: Impacted nondisplaced distal right radial fracture. Although age indeterminate, this is likely acute. Code Status & VTE Plan Code Status Full code as per prior admission, unable to be discussed the patient at this time secondary to confusion. VTE Prophylaxis Plan VTE Prophylaxis will be ordered: Yes Supervising Physician Co-Signing Physician Notes Attending addendum: The patient was seen and examined in the emergency room She is a 73-year-old female with significant past medical history of severe COPD on home O2 and recently diagnosed squamous cell carcinoma the lung has been complaining of confusional state for the last 2 days She seems to be alert awake oriented x3 in the emergency room during examination Chief complaint history of some shortness of breath but denies any other symptoms Status post fall with the right wrist and hand swelling and pain On examination Complaints of shortness of breath at rest Hemodynamically stable otherwise Chest-decreased breath sounds on movement with occasional wheezing Heart-S1-S2, regular, no murmur appreciated Abdomen-benign Extremities-no edema in the left, right wrist and hand swelling especially on the dorsum movement despite Admission labs and imaging studies noted Notable findings hyponatremia of 125 and nondisplaced fracture of the distal radial end Likely has hyponatremia secondary to SIADH Agree with assessment plan as outlined above by JOHN Mills Dr.
[2019-01-11] MEDS ORDERED: LORazepam 0.5 MG TAB PO PRN (14:18)
[2019-01-11] MEDS ORDERED: POLYETHYLENE (MIRALAX) 17 GM PACK PO PRN (14:18)
[2019-01-11] MEDS ORDERED: SENNA 8.6 MG TAB PO PRN (14:18)
[2019-01-11] MEDS: ALBUT/IPRATROP 3MG/0.5MG NEB 3 ML VIAL NEB SCH ×2 (15:27→19:24)
[2019-01-11] MEDS ORDERED: AZITHROMYCIN 250 MG TAB PO SCH (15:30)
[2019-01-11] MEDS: ENOXAPARIN INJ 40 MG/0.4 ML SYR SQ SCH (16:36)
[2019-01-11] MEDS: CALCIUM CARBONATE 1250MG TAB PO SCH (16:36)
[2019-01-11 17:13] LABS: Calcium 7.9 mg/dl (8.5-10.1); Creatinine Clr Calc Pharmacy 54.3 ml/min; Est GFR (African American) 94.7; Est GFR (Non-African American) 81.7; Potassium 3.3 mmol/L (3.5-5.1)
[2019-01-11] MEDS ORDERED: POTASSIUM CHLORIDE 20 MEQ TABCR PO STA (17:22)
[2019-01-11 17:33] LABS: Magnesium 2.1 mg/dl (1.8-2.4)
--- NOTE | 2019-01-11 17:55 | XRay Report ---
XR wrist RT min 3V routine CLINICAL HISTORY: Noted Radius fx on hand film fracture COMPARISON: Same day DISCUSSION: Nondisplaced transverse fracture distal radius is again noted. Generalized degenerative c hange throughout all remaining osseous structures is present. Mild calcification of the triangle fibr ocartilage. Moderate generalized soft tissue edema generalized degenerative change of the bones of th e wrist. This particularly true at the first carpometacarpal joint. IMPRESSION: Transverse nondisplaced fracture distal radius. Alignment is anatomic. No change from the prior study. Severe degenerative change of the bony structures of the wrist. The above report was generated using voice recognition software. It may contain grammatical, syntax or spelling errors. Electronically signed by: José Miguel Rivas M.D. 01/11/2019 5:54 PM
[2019-01-11] MEDS: FLUTICASONE/SALMETEROL (ADVAIR) 500/50 INH 14 PUFF INH SCH (19:54)
[2019-01-11] MEDS: MONTELUKAST SODIUM 10 MG TABLET PO SCH (19:54)
[2019-01-11] MEDS: ACETAMINOPHEN 325 MG TAB PO PRN (19:54)
[2019-01-11] MEDS: ROSUVASTATIN CALCIUM 20 MG TAB PO SCH (19:54)
[2019-01-11] MEDS: DOCUSATE SODIUM 100 MG CAP PO SCH (19:54)
[2019-01-11 20:58] LABS: BUN Creatinine Ratio 18.5 (10-20); Calcium 7.8 mg/dl (8.5-10.1); Est GFR (African American) 96.3; Est GFR (Non-African American) 83.1; Potassium 3.5 mmol/L (3.5-5.1)
--- NOTE | 2019-01-12 00:36 | Consultation Report ---
DATE OF CONSULTATION: 01/11/2019 HISTORY OF PRESENT ILLNESS: This is a 73-year-old female seen at the request of Dr. Petra Box and Dr. Feliciano for right wrist pain. Apparently, the patient was attempting to ambulate and sustained a fall on her right outstretched upper extremity. She has a complicated pulmonary and medical history which is in the medical record. She has minimal discomfort related to the wrist. 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 PAST SURGICAL HISTORY: History of Mohs, micrographic surgery for skin cancer, history of abdominoplasty, arthroplasty of right hip, bilateral cataract extraction, bronchoscopy x2, colonoscopy, detached retina repair, right eye, history of D and C, history of esophagogastroduodenoscopy, gynecologic surgery, benign uterine cyst removal, left oophorectomy, open reduction internal fixation of the right hip, rotator cuff repair on the left, rotator cuff repair on the right, left thumb surgery, T and A and wisdom tooth extraction. ALLERGIES: No known drug allergies. MEDICATIONS: Please see the extensive list provided in the medical record. SOCIAL HISTORY: She lives alone. She is retired and lives at the [facility]. She denies current tobacco or alcohol use. She has a history of tranquilizers and sedative use. PHYSICAL EXAMINATION: GENERAL: This is a 73-year-old female, who is lying supine in hospital room bed. Her friend is present at the bedside. She appears alert and oriented x2. Appears somewhat disoriented at times; however, redirects with simple conversation. She has a mild degree of anxiety. EXTREMITIES: Examination of the right wrist demonstrates thin skin, warm, dry and intact. No skin tears. Edema and ecchymosis at the distal radius. There is tenderness to palpation at the distal radius. Limited to active and passive range of motion of the right wrist due to pain and guarding. Tenderness to palpation at the distal radius, particularly dorsal and radial. Normal alignment. Radiographs of the right wrist demonstrate a transverse minimally displaced fracture of the distal radius without significant collapse. There is no evidence of intra-articular extension. There is extensive osteoarthritis throughout the right wrist and carpus with osteopenia noted with poor bone mineralization and multiple marginal osteophytes. IMPRESSION: Right wrist distal radius fracture, extraarticular with minimal displacement, status post fall. RECOMMENDATIONS: Velcro wrist splint, right upper extremity. Nonoperative care, ice, elevation and pain medication as deemed appropriate by the medical team. Follow up in clinic with Dr. Jaffe for reassessment in approximately 4 weeks with repeat radiographs. Thank you for the opportunity to consult and care of this patient.
[2019-01-12 00:45] LABS: BUN Creatinine Ratio 19.5 (10-20); Calcium 7.4 mg/dl (8.5-10.1); Est GFR (African American) 101.6; Est GFR (Non-African American) 87.6; Potassium 3.6 mmol/L (3.5-5.1)
[2019-01-12 06:03] LABS: Hematocrit (blood only) 33.2 % (37-47); Hemoglobin 11.4 g/dL (12.0-16.0); Mean Corpuscular Hgb Conc 34.3 g/dL (32-36); Mean Corpuscular Volume 89.7 fL (80-100); Mean Platelet Volume 9.8 fL (7.4-10.4); Platelet Count 145 K/uL (130-400); RDW Coefficient of Variation 13.6 % (11.5-14.5); RDW Standard Deviation 44.6 fL (36.4-46.3); White Blood Count 9.11 K/uL (4.8-10.8)
[2019-01-12 06:47] LABS: BUN Creatinine Ratio 17.6 (10-20); Calcium 7.6 mg/dl (8.5-10.1); Creatinine Clr Calc Pharmacy 67.2 ml/min; Est GFR (African American) 105.4; Est GFR (Non-African American) 90.9; Potassium 3.7 mmol/L (3.5-5.1)
[2019-01-12] MEDS: ALBUT/IPRATROP 3MG/0.5MG NEB 3 ML VIAL NEB SCH ×3 (06:56→14:26)
[2019-01-12] MEDS: BuPROPion SR 100 MG TABCR PO SCH (08:16)
[2019-01-12] MEDS: TAMSULOSIN HCL 0.4 MG CAP PO SCH (08:16)
[2019-01-12] MEDS: PANTOprazole 40 MG TAB PO SCH (08:16)
[2019-01-12] MEDS: ASPIRIN 81 MG ECTAB PO SCH (08:16)
[2019-01-12] MEDS: ASCORBIC ACID 500 MG TAB PO SCH (08:17)
[2019-01-12] MEDS: CALCIUM CARBONATE 1250MG TAB PO SCH ×3 (08:17→15:24)
[2019-01-12] MEDS: CYANOCOBALAMIN 500 MCG TABLET (VITAMIN B-12) PO SCH (08:17)
[2019-01-12] MEDS: DOCUSATE SODIUM 100 MG CAP PO SCH ×2 (08:18→20:59)
[2019-01-12] MEDS: VENLAFAXINE HCL XR 150 MG CAPXR PO SCH (08:18)
[2019-01-12] MEDS: FLUTICASONE/SALMETEROL (ADVAIR) 500/50 INH 14 PUFF INH SCH ×2 (08:18→20:56)
[2019-01-12] MEDS: TIOTROPIUM BROMIDE 5 PUFF/90 MCG INH INH SCH (08:20)
[2019-01-12] MEDS: predniSONE 10 MG TABLET PO SCH (08:20)
[2019-01-12 08:39] LABS: Calcium 7.8 mg/dl (8.5-10.1); Creatinine Clr Calc Pharmacy 73.4 ml/min; Est GFR (African American) 108.5; Est GFR (Non-African American) 93.6; Potassium 3.4 mmol/L (3.5-5.1)
[2019-01-12] MEDS ORDERED: CEROVITE ADV FORMULA TAB PO SCH (09:00)
[2019-01-12] MEDS ORDERED: levoFLOXacin 500 MG TAB PO SCH (09:00)
--- NOTE | 2019-01-12 09:33 | Nephrology Consultation ---
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 She had a urine sodium of 76 and the urine osmolarity 566 both consistent with SIADH. Likely triggers of ADH release include pain, multiple an tidepressants and cancer. recommend: -Po lasix 20mg bid. Monitor input/output -Fluid restriction of 1200ml daily -Monitor Na daily. No need to monitor frequently (2) Altered mental status: Likely metabolic encephalopathy in setting of multiple psychoactive medications. Hyponatremia less likely to be the main etiology given degree of hyponatremia was mild with sodium of 125. Patient's mental status has improved. Consider reducing dose of some of the psychoactive medications like venlafaxine. History of Present Illness Reason for Consultation: Hyponatremia Requesting Physician: John Pennington MD Attending Physician: John Pennington MD History of Present Illness This is 73-year-old female with past medical history of severe COPD on home oxygen, osteoarthritis, depression, gastroesophageal reflux disease and recent diagnosis of squamous cell carcinoma of the lung who was admitted on 01/11/2019 with altered mental status. Patient has reportedly been confused for the past 2 days. In the emergency room she was found to have a sodium of 125. Will been asked to evaluate her for etiology and management of hyponatremia. Patient recently admitted here on 01/03/2019 with bleeding after bronchoscopy and her sodium was normal at the time. This morning she is awake and able to give history. She denies any history of hyponatremia. No headache or confusion. She has been drinking substantial amounts of water but cannot quantify. No diarrhea or vomiting. No urinary symptoms. She fell a few days ago and sustained a fracture of her distal radius on the right wrist. Her sodium has improved to 131 this morning. She received 500 mL of normal saline in the on admission. Urine osmolality was high at 566, urine sodium of 76 and a serum osmolarity of 263. Allergies Allergy/AdvReac Type Severity Reaction Status Date / Time No Known Allergies Allergy Verified 01/11/19 09:15 Home Medications Home Medications Medication Instructions Recorded Confirmed Type Spiriva with HandiHaler 1 cap INHALATION QAM 11/28/18 01/11/19 History albuterol sulfate [Ventolin HFA] 2 puff INHALATION Q4H PRN 11/28/18 01/11/19 History ascorbic acid (vitamin C) 1,000 mg PO QAM 11/28/18 01/11/19 History calcium carbonate [Calcium 500] 500 mg PO TID 11/28/18 01/11/19 History cyanocobalamin (vitamin B-12) 1,000 mcg PO QAM 11/28/18 01/11/19 History fluticasone propion-salmeterol 1 inh INHALATION BID 11/28/18 01/11/19 History [Advair Diskus] fluticasone propionate 2 spry INTRANASAL HS 11/28/18 01/11/19 History ipratropium-albuterol 3 ml INHALATION QID PRN 11/28/18 01/11/19 History montelukast 10 mg PO HS 11/28/18 01/11/19 History pantoprazole 40 mg PO QAM 11/28/18 01/11/19 History polyethylene glycol 3350 [Miralax] 17 g PO QAM PRN 11/28/18 01/11/19 History rosuvastatin 20 mg PO HS 11/28/18 01/11/19 History sennosides [senna] 17.2 mg PO BID PRN 11/28/18 01/11/19 History trazodone 75 mg PO HS PRN 11/28/18 01/11/19 History venlafaxine 150 mg PO QAM 11/28/18 01/11/19 History Women's Daily Formula 1 tab PO QAM 12/31/18 01/11/19 History ipratropium-albuterol 3 ml NEB QIDR 10 Days #90 ml 01/05/19 01/11/19 Rx aspirin 81 mg PO DAILY 01/11/19 01/11/19 History azithromycin [Zithromax] 250 mg PO 3XWK 01/11/19 01/11/19 History bupropion HCl [Wellbutrin SR] 100 mg PO DAILY 01/11/19 01/11/19 History buspirone 5 mg PO TID 01/11/19 01/11/19 History cetirizine 10 mg PO DAILY PRN 01/11/19 01/11/19 History docusate sodium [Colace] 100 mg PO BID 01/11/19 01/11/19 History levofloxacin 500 mg PO DAILY 01/11/19 01/11/19 History linaclotide [Linzess] 145 mcg PO DAILY 01/11/19 01/11/19 History lorazepam 0.5 mg PO BID PRN 01/11/19 01/11/19 History prednisone 10 mg PO UD 01/11/19 01/11/19 History tamsulosin 0.4 mg PO DAILY 01/11/19 01/11/19 History wheat dextrin [Benefiber Clear SF 1 packet PO DAILY PRN 01/11/19 01/11/19 History (dextrin)] Patient History Medical History Hyperlipidemia (Chronic) On home oxygen therapy (Chronic) o2 @ 2L N/C hs and prn Hiatal hernia (Chronic) GERD (gastroesophageal reflux disease) (Chronic) Scoliosis (Chronic) Osteoarthritis (Chronic) History of anesthesia reaction (Chronic) felt bronchoscopy procedure History of colon polyps (Chronic) Anxiety (Chronic) Depression (Chronic) Osteoporosis (Chronic) Chronic constipation (Chronic) Squamous cell carcinoma lung (Chronic) 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) COPD (chronic obstructive pulmonary disease) (Chronic) Surgical History History of bilateral cataract extraction (Chronic) History of detached retina repair (Chronic) right eye History of tonsillectomy and adenoidectomy (Chronic) History of wisdom tooth extraction (Chronic) History of Mohs micrographic surgery for skin cancer (Chronic) History of arthroplasty of right hip (Chronic) History of open reduction and internal fixation (ORIF) procedure (Chronic) right hip History of repair of right rotator cuff (Chronic) History of repair of left rotator cuff (Chronic) History of thumb surgery (Chronic) left History of dilatation and curettage (Chronic) History of left oophorectomy (Chronic) Family History Mother Family hx of colon cancer Social History Preferred Language: Georgian Communication Ability: Effective License Distributor Required: No Beliefs That Will Affect Care: None marital status: Unknown Current Living Situation: Personal Care Facility Current Living Situation Comment: Lives in the independent side of the [facility] Other Information That Helps Us Care for You: No Feels Safe at Home: Yes Safety Concerns: Feels Safe At This Time Smoking Status: Former smoker Tobacco Type: cigarettes Do You Dip or Chew Tobacco: No Second Hand Exposure: No Tobacco Cessation Education Requested by Patient: No Hx Alcohol Use: Yes Alcohol type: wine Hx Substance Use: No Review of Systems Review of Systems: All systems reviewed & are unremarkable except as noted in HPI & below Physical Exam Physical Exam: General exam: Appears comfortable, no acute distress HEENT: Pupils are equal and reactive to light Neck: No JVD, neck is supple trachea is midline Respiratory system: Clear breath sounds bilaterally. Gastrointestinal: Abdomen is soft, non distended, non tender, bowel sounds are present CVS: Regular rate and rhythm. No murmurs, rubs or gallops Musculoskeletal: No joint or muscle tenderness Extremities: Right wrist slightly swollen and tender, no edema, peripheral pulses are present Neuro: Oriented, no tremors, no focal neurological deficits Skin: No rashes Results & Data Vital Signs (Past 12 Hours) Vital Signs Temp Pulse Pulse Resp BP Pulse Ox 01/12/19 06:56 89 18 95 01/12/19 03:22 36.9 C 75 18 168/75 H 94 01/12/19 02:15 84 01/11/19 23:24 36.9 C 75 20 133/65 95 Laboratory Results Laboratory Results - last 24 hr 01/11/19 01/11/19 01/11/19 09:07 09:07 09:07 WBC 14.77 H RBC 4.15 L Hgb 13.2 Hct 37.3 MCV 89.9 MCH 31.8 MCHC 35.4 RDW Std Deviation 44.4 RDW Coeff of Yamini 13.5 Plt Count 281 MPV 8.4 Immature Gran % (Auto) 0.5 Neut % (Auto) 85.2 Lymph % (Auto) 10.0 [place] % (Auto) 4.3 Eos % (Auto) 0.0 Baso % (Auto) 0.0 Immature Gran # (Auto) 0.07 H Neut # (Auto) 12.59 H Lymph # (Auto) 1.48 [place] # (Auto) 0.63 H Eos # (Auto) 0.00 Baso # (Auto) 0.00 PT Cancelled INR Cancelled APTT PTT Ratio Sodium 125 L Potassium 3.5 Chloride 90 L Carbon Dioxide 30 Anion Gap 5.0 BUN 15 Creatinine 0.79 Est Cr Clr Drug Dosing Not Reportable Est GFR ( Amer) 86.1 Est GFR (Non-Af Amer) 74.3 BUN/Creatinine Ratio 19.5 Glucose 91 Osmolality POC Lactic Acid Pankaj Calcium 8.1 L Magnesium Total Bilirubin 1.0 AST 21 ALT 26 Alkaline Phosphatase 49 Total Creatine Kinase 103 Troponin I < 0.015 Total Protein 6.9 Albumin 3.6 Globulin 3.3 Albumin/Globulin Ratio 1.1 TSH 0.815 Specimen Hemolysis Urine Color Urine Appearance Urine pH Ur Specific [place] Urine Protein Urine Glucose (UA) Urine Ketones Urine Blood Urine Nitrite Urine Bilirubin Urine Urobilinogen Ur Leukocyte Esterase Urine Osmolality Ur Random Sodium 01/11/19 01/11/19 01/11/19 09:07 09:11 10:10 WBC RBC Hgb Hct MCV MCH MCHC RDW Std Deviation RDW Coeff of Yamini Plt Count MPV Immature Gran % (Auto) Neut % (Auto) Lymph % (Auto) [place] % (Auto) Eos % (Auto) Baso % (Auto) Immature Gran # (Auto) Neut # (Auto) Lymph # (Auto) [place] # (Auto) Eos # (Auto) Baso # (Auto) PT 11.7 INR 1.2 H APTT 23.8 PTT Ratio 0.9 Sodium Potassium Chloride Carbon Dioxide Anion Gap BUN Creatinine Est Cr Clr Drug Dosing Est GFR ( Amer) Est GFR (Non-Af Amer) BUN/Creatinine Ratio Glucose Osmolality 263 L POC Lactic Acid Pankaj 0.90 Calcium Magnesium Total Bilirubin AST ALT Alkaline Phosphatase Total Creatine Kinase Troponin I Total Protein Albumin Globulin Albumin/Globulin Ratio TSH Specimen Hemolysis Urine Color Urine Appearance Urine pH Ur Specific [place] Urine Protein Urine Glucose (UA) Urine Ketones Urine Blood Urine Nitrite Urine Bilirubin Urine Urobilinogen Ur Leukocyte Esterase Urine Osmolality Ur Random Sodium 01/11/19 01/11/19 01/11/19 10:46 10:46 10:46 WBC RBC Hgb Hct MCV MCH MCHC RDW Std Deviation RDW Coeff of Yamini Plt Count MPV Immature Gran % (Auto) Neut % (Auto) Lymph % (Auto) [place] % (Auto) Eos % (Auto) Baso % (Auto) Immature Gran # (Auto) Neut # (Auto) Lymph # (Auto) [place] # (Auto) Eos # (Auto) Baso # (Auto) PT INR APTT PTT Ratio Sodium Potassium Chloride Carbon Dioxide Anion Gap BUN Creatinine Est Cr Clr Drug Dosing Est GFR ( Amer) Est GFR (Non-Af Amer) BUN/Creatinine Ratio Glucose Osmolality POC Lactic Acid Pankaj Calcium Magnesium Total Bilirubin AST ALT Alkaline Phosphatase Total Creatine Kinase Troponin I Total Protein Albumin Globulin Albumin/Globulin Ratio TSH Specimen Hemolysis Urine Color Yellow Urine Appearance Clear Urine pH 7.5 Ur Specific [place] 1.019 Urine Protein Negative Urine Glucose (UA) Negative Urine Ketones 1+ H Urine Blood Negative Urine Nitrite Negative Urine Bilirubin Negative Urine Urobilinogen Negative Ur Leukocyte Esterase Negative Urine Osmolality 566 Ur Random Sodium 76 01/11/19 01/11/19 01/11/19 13:01 16:23 20:20 WBC RBC Hgb Hct MCV MCH MCHC RDW Std Deviation RDW Coeff of Yamini Plt Count MPV Immature Gran % (Auto) Neut % (Auto) Lymph % (Auto) [place] % (Auto) Eos % (Auto) Baso % (Auto) Immature Gran # (Auto) Neut # (Auto) Lymph # (Auto) [place] # (Auto) Eos # (Auto) Baso # (Auto) PT INR APTT PTT Ratio Sodium 130 L 129 L 129 L Potassium 3.3 L 3.3 L 3.5 Chloride 93 L 93 L 95 L Carbon Dioxide 28 30 27 Anion Gap 9.0 6.0 7.0 BUN 13 13 13 Creatinine 0.59 L 0.73 0.72 Est Cr Clr Drug Dosing 67.2 54.3 55.0 Est GFR ( Amer) 105.4 94.7 96.3 Est GFR (Non-Af Amer) 90.9 81.7 83.1 BUN/Creatinine Ratio 22.0 H 18.0 18.5 Glucose 97 102 H 108 H Osmolality POC Lactic Acid Pankaj Calcium 7.7 L 7.9 L 7.8 L Magnesium 2.1 Total Bilirubin AST ALT Alkaline Phosphatase Total Creatine Kinase Troponin I Total Protein Albumin Globulin Albumin/Globulin Ratio TSH Specimen Hemolysis Urine Color Urine Appearance Urine pH Ur Specific [place] Urine Protein Urine Glucose (UA) Urine Ketones Urine Blood Urine Nitrite Urine Bilirubin Urine Urobilinogen Ur Leukocyte Esterase Urine Osmolality Ur Random Sodium 01/12/19 01/12/19 01/12/19 00:14 05:25 05:25 WBC 9.11 RBC 3.70 L Hgb 11.4 L Hct 33.2 L MCV 89.7 MCH 30.8 MCHC 34.3 RDW Std Deviation 44.6 RDW Coeff of Yamini 13.6 Plt Count 145 MPV 9.8 Immature Gran % (Auto) Neut % (Auto) Lymph % (Auto) [place] % (Auto) Eos % (Auto) Baso % (Auto) Immature Gran # (Auto) Neut # (Auto) Lymph # (Auto) [place] # (Auto) Eos # (Auto) Baso # (Auto) PT INR APTT PTT Ratio Sodium 128 L 128 L Potassium 3.6 3.7 Chloride 95 L 96 L Carbon Dioxide 32 28 Anion Gap 1.0 L 4.0 BUN 13 10 Creatinine 0.66 0.59 L Est Cr Clr Drug Dosing 60.0 67.2 Est GFR ( Amer) 101.6 105.4 Est GFR (Non-Af Amer) 87.6 90.9 BUN/Creatinine Ratio 19.5 17.6 Glucose 102 H 91 Osmolality POC Lactic Acid Pankaj Calcium 7.4 L 7.6 L Magnesium Total Bilirubin AST ALT Alkaline Phosphatase Total Creatine Kinase Troponin I Total Protein Albumin Globulin Albumin/Globulin Ratio TSH Specimen Hemolysis Urine Color Urine Appearance Urine pH Ur Specific [place] Urine Protein Urine Glucose (UA) Urine Ketones Urine Blood Urine Nitrite Urine Bilirubin Urine Urobilinogen Ur Leukocyte Esterase Urine Osmolality Ur Random Sodium 01/12/19 07:56 WBC RBC Hgb Hct MCV MCH MCHC RDW Std Deviation RDW Coeff of Yamini Plt Count MPV Immature Gran % (Auto) Neut % (Auto) Lymph % (Auto) [place] % (Auto) Eos % (Auto) Baso % (Auto) Immature Gran # (Auto) Neut # (Auto) Lymph # (Auto) [place] # (Auto) Eos # (Auto) Baso # (Auto) PT INR APTT PTT Ratio Sodium 131 L Potassium 3.4 L Chloride 96 L Carbon Dioxide 27 Anion Gap 8.0 BUN 10 Creatinine 0.54 L Est Cr Clr Drug Dosing 73.4 Est GFR ( Amer) 108.5 Est GFR (Non-Af Amer) 93.6 BUN/Creatinine Ratio 19.0 Glucose 114 H Osmolality POC Lactic Acid Pankaj Calcium 7.8 L Magnesium Total Bilirubin AST ALT Alkaline Phosphatase Total Creatine Kinase Troponin I Total Protein Albumin Globulin Albumin/Globulin Ratio TSH Specimen Hemolysis Urine Color Urine Appearance Urine pH Ur Specific [place] Urine Protein Urine Glucose (UA) Urine Ketones Urine Blood Urine Nitrite Urine Bilirubin Urine Urobilinogen Ur Leukocyte Esterase Urine Osmolality Ur Random Sodium
[2019-01-12] MEDS: FUROSEMIDE 20 MG TAB PO SCH ×2 (10:31→15:23)
--- NOTE | 2019-01-12 13:11 | Consultation Report ---
DATE OF CONSULTATION: 01/12/2019 CONSULTATION ROUNDS HISTORY OF PRESENT ILLNESS: The patient is seen in followup regarding her right distal radius fracture. She had a Velcro brace placed yesterday after my recommendation for the brace. She has also been icing the wrist. She has had some improvement in her symptoms with immobilization of the wrist. She states she is more awake and alert today. PHYSICAL EXAMINATION: Demonstrates right distal radius in normal stable alignment. Skin is warm, dry and intact. The Velcro wrist brace is well fitted and intact. Fingers are pink and warm. Cap refill is less than 2 seconds. Radial pulses 2/4. IMPRESSION: Right minimally displaced distal radius fracture, status post fall. RECOMMENDATION: Continue use of Velcro wrist brace, may remove to shower, may remove for range of motion exercises under supervision. Follow up in [address] Jaffe for reassessment and new x-rays of the right wrist. Thank you for the opportunity to consult and care of this patient.
[2019-01-12] MEDS: ENOXAPARIN INJ 40 MG/0.4 ML SYR SQ SCH (15:21)
[2019-01-12] MEDS: ACETAMINOPHEN 325 MG TAB PO PRN (15:26)
--- NOTE | 2019-01-12 16:32 | Hospitalist Progress Note ---
Date of Service January 12, 2019 Assessment & Plan (1) Altered mental status: Head CT negative. Probable metabolic encephalopathy secondary to hyponatremia. Check MRI brain during this hospital stay. (2) Hyponatremia: Serum sodium 125 at time of admission. Nephrology consulted. Urine Osm 566. 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 1200 ml fluid restriction + furosemide 20 mg BID recommended. Serum sodium today = 131. Takes bupropion, venlafaxine, and trazodone - all associated with hyponatremia. May need to make adjustments if serum sodium does not improve. Follow. (3) COPD (chronic obstructive pulmonary disease): Continue bronchodilators and prednisone. (4) Nocturnal hypoxia: Continue supplemental O2. (5) Squamous cell carcinoma lung: Biopsy of endobronchial lesion 01/04/[address] Bowers. Path consistent with squamous cell Ca. Scheduled for PET scan 01/16- may need to be rescheduled. Scheduled for outpt MRI brain for staging- will do during this hospital stay due to altered mental status. Outpatient follow-up with Dr. Bowers. (6) GERD (gastroesophageal reflux disease): Continue PPI. (7) Hypokalemia: Serum K 3.5 on admission and fell as low as 3.3. K today = 3.4. Replace. Follow. (8) Fever: Tmax 39.3. No infiltrates seen on CXR. UA negative. Nonproductive cough- check sputum if pt can provide specimen. Blood cultures were done 01/11 - negative so far. Receiving azithromycin 250 mg TIW for COPD + levofloxacin. Levofloxacin could be contributing to confusion- DC. Change antibiotic therapy to doxycycline + piperacillin / tazobactam for broader coverage pending culture results. (9) Distal radius fracture, right: Nondisplaced fracture distal radius. Seen in consultation by Ortho. Nonsurgical management / splinting recommended. Continue calcium supplementation. Check vitamin D level. (10) Depression: History of anxiety and depression. Usually takes bupropion, buspirone, lorazepam, venlafaxine, trazodone PRN. Best to hold lorazepam due to confusion (unless pt taking it on regular basis). Bupropion, venlafaxine, and trazodone all associated with hyponatremia. May need to make adjustments if serum sodium does not improve. (11) DVT prophylaxis: Increased risk for VTE due to malignancy, age, and other factors. SQ enoxaparin. Ambulate. (12) Discharge planning issues: Discharge plans to be determined. May need skilled care. Case Management following. Internal Medicine follow-up with Dr. Kenzie Feliciano. Thoracic Medicine follow-up with Dr. Bowers. Orthopedics follow-up with Dr. Jaffe 4 weeks after discharge. Daughter Donna visiting from [place] and given update this afternoon. Subjective Recheck for multiple problems. Patient seen in their room around 1020. Less confused. Persistent congested (but nonproductive) cough. Mild CP with coughing. Review of Systems: Constitutional- no fever. Cardiac- no chest pain. Pulmonary- no cough or SOB. GI- no nausea, vomiting, diarrhea, melena, hematochezia. - no urinary symptoms. Otherwise, as noted above. Physical Exam Constitutional: no acute distress Respiratory: no respiratory distress Auscultation: + wheezes (diffuse) Cardiovascular: Rate/Rhythm: regular rate and regular rhythm Vessels: no JVD Extremities: + calf tenderness; no edema Gastrointestinal (Abdomen): normal bowel sounds, soft, nontender, no hepatosplenomegaly Skin: no rashes, warm and dry Psychiatric: Orientation: alert and oriented x 3 (but mildly confused) Results & Data Vital Signs (Past 12 Hours) Vital Signs Temp Pulse Resp BP BP Pulse Ox 01/12/19 15:15 37.4 C 105 H 18 137/70 93 01/12/19 15:03 90 01/12/19 14:39 37 C 01/12/19 14:26 77 18 95 01/12/19 11:44 37.8 C H 107 H 16 122/76 95 01/12/19 11:14 94 H 18 91 01/12/19 07:45 37.7 C H 82 18 133/60 95 01/12/19 06:56 89 18 95 Laboratory Results Laboratory Results - last 24 hr 01/11/19 01/11/19 01/12/19 16:23 20:20 00:14 WBC RBC Hgb Hct MCV MCH MCHC RDW Std Deviation RDW Coeff of Yamini Plt Count MPV Sodium 129 L 129 L 128 L Potassium 3.3 L 3.5 3.6 Chloride 93 L 95 L 95 L Carbon Dioxide 30 27 32 Anion Gap 6.0 7.0 1.0 L BUN 13 13 13 Creatinine 0.73 0.72 0.66 Est Cr Clr Drug Dosing 54.3 55.0 60.0 Est GFR ( Amer) 94.7 96.3 101.6 Est GFR (Non-Af Amer) 81.7 83.1 87.6 BUN/Creatinine Ratio 18.0 18.5 19.5 Glucose 102 H 108 H 102 H Calcium 7.9 L 7.8 L 7.4 L Magnesium 2.1 Specimen Hemolysis 01/12/19 01/12/19 01/12/19 05:25 05:25 07:56 WBC 9.11 RBC 3.70 L Hgb 11.4 L Hct 33.2 L MCV 89.7 MCH 30.8 MCHC 34.3 RDW Std Deviation 44.6 RDW Coeff of Yamini 13.6 Plt Count 145 MPV 9.8 Sodium 128 L 131 L Potassium 3.7 3.4 L Chloride 96 L 96 L Carbon Dioxide 28 27 Anion Gap 4.0 8.0 BUN 10 10 Creatinine 0.59 L 0.54 L Est Cr Clr Drug Dosing 67.2 73.4 Est GFR ( Amer) 105.4 108.5 Est GFR (Non-Af Amer) 90.9 93.6 BUN/Creatinine Ratio 17.6 19.0 Glucose 91 114 H Calcium 7.6 L 7.8 L Magnesium Specimen Hemolysis
[2019-01-12] MEDS ORDERED: PIPERACILL/TAZOBAC CONSULT ACTIVE PRN (16:47)
[2019-01-12] MEDS ORDERED: PIPERACILLIN/TAZOBACTAM 3.375 GM in DEXTROSE 5% 100 ML IV ONE (18:15)
[2019-01-12] MEDS: IPRATROPIUM BROMIDE NEB SOLN 0.02% 2.5 ML VIAL INH SCH (18:55)
[2019-01-12] MEDS: LEVALBUTEROL 1.25MG/0.5ML NEB INH SCH (18:55)
[2019-01-12] MEDS ORDERED: XOPENEX/ATROVENT 1.25mg/0.5MG NEB COMBO NEB SCH (20:00)
[2019-01-12] MEDS: ROSUVASTATIN CALCIUM 20 MG TAB PO SCH (20:59)
[2019-01-12] MEDS: MONTELUKAST SODIUM 10 MG TABLET PO SCH (21:00)
[2019-01-12] MEDS ORDERED: POTASSIUM CHLORIDE 10 MEQ TABCR PO SCH (21:00)
[2019-01-12] MEDS: DOXYCYCLINE HYCLATE 100 MG CAP PO SCH (21:00)
[2019-01-12] MEDS: guaiFENesin 600 MG TABCR PO SCH (21:01)
[2019-01-12] MEDS: PIPERACILLIN/TAZOBACTAM 3.375 GM in DEXTROSE 5% 100 ML IV SCH (23:12)
[2019-01-13] MEDS: IPRATROPIUM BROMIDE NEB SOLN 0.02% 2.5 ML VIAL INH SCH ×4 (01:50→19:04)
[2019-01-13] MEDS: LEVALBUTEROL 1.25MG/0.5ML NEB INH SCH ×4 (01:52→19:04)
[2019-01-13 06:25] LABS: Calcium 8.5 mg/dl (8.5-10.1); Creatinine Clr Calc Pharmacy 50.2 ml/min; Est GFR (African American) 86.1; Est GFR (Non-African American) 74.3
[2019-01-13] MEDS ORDERED: POTASSIUM CHLORIDE 10 MEQ TABCR PO ONE (06:55)
[2019-01-13] MEDS: FLUTICASONE/SALMETEROL (ADVAIR) 500/50 INH 14 PUFF INH SCH ×2 (08:12→20:02)
[2019-01-13] MEDS: PIPERACILLIN/TAZOBACTAM 3.375 GM in DEXTROSE 5% 100 ML IV SCH ×2 (08:12→17:50)
[2019-01-13] MEDS: PANTOprazole 40 MG TAB PO SCH (08:13)
[2019-01-13] MEDS: BuPROPion SR 100 MG TABCR PO SCH (08:13)
[2019-01-13] MEDS: ASPIRIN 81 MG ECTAB PO SCH (08:13)
[2019-01-13] MEDS: predniSONE 10 MG TABLET PO SCH (08:13)
[2019-01-13] MEDS: DOXYCYCLINE HYCLATE 100 MG CAP PO SCH ×2 (08:13→20:05)
[2019-01-13] MEDS: CYANOCOBALAMIN 500 MCG TABLET (VITAMIN B-12) PO SCH (08:13)
[2019-01-13] MEDS: TAMSULOSIN HCL 0.4 MG CAP PO SCH (08:13)
[2019-01-13] MEDS: ASCORBIC ACID 500 MG TAB PO SCH (08:13)
[2019-01-13] MEDS: DOCUSATE SODIUM 100 MG CAP PO SCH ×2 (08:13→20:05)
[2019-01-13] MEDS: FUROSEMIDE 20 MG TAB PO SCH ×2 (08:14→17:51)
[2019-01-13] MEDS: TIOTROPIUM BROMIDE 5 PUFF/90 MCG INH INH SCH (08:14)
[2019-01-13] MEDS: VENLAFAXINE HCL XR 150 MG CAPXR PO SCH (08:14)
[2019-01-13] MEDS ORDERED: POTASSIUM CHLORIDE 20 MEQ TABCR PO SCH (09:00)
[2019-01-13] MEDS: guaiFENesin 600 MG TABCR PO SCH ×2 (09:01→20:05)
[2019-01-13] MEDS: POTASSIUM CHLORIDE 20 MEQ TABCR PO SCH (10:15)
[2019-01-13] MEDS: ENOXAPARIN INJ 40 MG/0.4 ML SYR SQ SCH (17:51)
--- NOTE | 2019-01-13 18:57 | Hospitalist Progress Note ---
Date of Service January 13, 2019 Assessment & Plan (1) Altered mental status: Head CT negative. Probable delirium / metabolic encephalopathy secondary to hyponatremia and other factors. Persistent confusion despite improvement of hyponatremia. Levofloxacin discontinued. Patient has lorazepam prescribed PRN at home, but she is unable to state clearly how often she uses it. Considered benzodiazepine withdrawal, but review of med history only demonstrates 1 Rx recently. Daughter guesses that she drinks a glass of wine daily, but is not certain. Consider alcohol withdrawal. IV thiamine. Try to avoid gabapentin or benzodiazepines if possible. Avoid anticholinergic meds when possible- stop tiotropium and ipratropium. Check MRI brain to rule out metastatic disease or vascular event. 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 (2) Hyponatremia: Serum sodium 125 at time of admission. Nephrology consulted. Urine Osm 566. 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 1200 ml fluid restriction + furosemide 20 mg BID recommended. Serum sodium today = 132. Takes bupropion, venlafaxine, and trazodone - all associated with hyponatremia. May need to make adjustments if serum sodium does not improve. Follow. (3) COPD (chronic obstructive pulmonary disease): Change nebs to levalbuterol. Try stopping prednisone because of delirium. Probably no need to taper. (4) Nocturnal hypoxia: Continue supplemental O2. (5) Squamous cell carcinoma lung: Biopsy of endobronchial lesion 01/04/[address] Bowers. Path consistent with squamous cell Ca. Scheduled for PET scan 01/16- may need to be rescheduled. Scheduled for outpt MRI brain for staging- will do during this hospital stay due to altered mental status. Outpatient follow-up with Dr. Bowers. (6) GERD (gastroesophageal reflux disease): Continue PPI. (7) Hypokalemia: Serum K 3.5 on admission. K today = 3.0. Replace. Follow. (8) Fever: Temp as high as 39.3. No infiltrates seen on CXR. UA negative. Nonproductive cough- check sputum if pt can provide specimen. Blood cultures were done 01/11 - negative so far. Was receiving azithromycin 250 mg TIW for COPD + levofloxacin. Levofloxacin could be contributing to confusion- stopped. Changed antibiotic therapy to doxycycline + piperacillin / tazobactam for broader coverage pending culture results. Tmax last 24 hrs 37.8. Check f/u chest x-ray in a.m. (9) Distal radius fracture, right: Nondisplaced fracture distal radius. Seen in consultation by Ortho. Nonsurgical management / splinting recommended. Continue calcium supplementation. Vitamin D level = 44. (10) Depression: History of anxiety and depression. Usually takes bupropion, buspirone, lorazepam, venlafaxine, trazodone PRN. Best to hold lorazepam due to confusion (unless pt taking it on regular basis). Bupropion, venlafaxine, and trazodone all associated with hyponatremia. May need to make adjustments if serum sodium does not improve. (11) DVT prophylaxis: Increased risk for VTE due to malignancy, age, and other factors. SQ enoxaparin. Ambulate. (12) Discharge planning issues: Discharge plans to be determined. May need skilled care. Case Management following. Internal Medicine follow-up with Dr. Kenzie Feliciano. Thoracic Medicine follow-up with Dr. Bowers. Orthopedics follow-up with Dr. Jaffe 4 weeks after discharge. Eunice Thompson given update this afternoon. Subjective Recheck for multiple problems. Patient seen in their room around 1420. Daughter Donna and family friends visiting later in the afternoon. Still confused. Complains of headache. Cough improved. Mild chest pain with coughing. Review of Systems: Constitutional- no fever. Cardiac- no anginal symptoms. Pulmonary- as noted above. GI- no nausea, vomiting, diarrhea, melena, hematochezia. - no urinary symptoms. Otherwise, as noted above. Physical Exam Constitutional: no acute distress Respiratory: no respiratory distress Auscultation: + wheezes (diffuse) Cardiovascular: Rate/Rhythm: regular rate and regular rhythm Vessels: no JVD Extremities: + calf tenderness; no edema Gastrointestinal (Abdomen): normal bowel sounds, soft, nontender, no hepatosplenomegaly Musculoskeletal: Spine: normal cervical ROM (supple) Skin: no rashes, warm and dry Neurologic: Cranial Nerves: PERRL and EOM intact bilaterally Psychiatric: Orientation: + not alert (somnolent, but arousable and conversant) and + not oriented x 3 (oriented to person & place; date off by 1 day) Cognition: + recent memory not intact Results & Data Vital Signs (Past 12 Hours) Vital Signs Temp Pulse Resp BP Pulse Ox Pulse Ox Pulse Ox 01/13/19 14:47 37.1 C 93 H 18 148/69 H 93 01/13/19 13:58 92 H 18 94 01/13/19 13:51 95 88 L 01/13/19 12:18 37.5 C 106 H 22 115/71 92 01/13/19 07:27 36.6 C 98 H 24 163/74 H 98 01/13/19 06:58 97 H 18 91 Laboratory Results Laboratory Results - last 24 hr 01/13/19 01/13/19 05:14 05:14 Sodium 132 L Potassium 3.0 L Chloride 95 L Carbon Dioxide 31 Anion Gap 6.0 BUN 11 Creatinine 0.79 Est Cr Clr Drug Dosing 50.2 Est GFR ( Amer) 86.1 Est GFR (Non-Af Amer) 74.3 BUN/Creatinine Ratio 14.0 Glucose 99 Calcium 8.5 25-OH Vitamin D Total 44.3
--- NOTE | 2019-01-13 19:17 | Nephrology Progress Note ---
Date of Service January 13, 2019 Assessment & Plan (1) Hyponatremia: Patient with acute hyponatremia likely due to syndrome of inappropriate ADH. Na 132 today. She had a urine sodium of 76 and the urine osmolarity 566 both consistent with SIADH. Likely triggers of ADH release include pain, mu ltiple antidepressants and cancer. recommend: -Po lasix 20mg bid. Monitor input/output -Fluid restriction of 1200ml daily -Monitor Na daily. No need to monitor frequently (2) Altered mental status: Likely metabolic encephalopathy in setting of multiple psychoactive medications. Hyponatremia less likely to be the main etiology given degree of hyponatremia was mild with sodium of 125 on admission and mental status remains the same even with improving Na. Consider reducing dose of some of the psychoactive medications like venlafaxine. Subjective Seen in f/u for hyponatremia and AMS. She is more confused this morning. She denies SOB or pain but difficult to assess due to confusion. Na is better at 132. Review of Systems Review of Systems: Unobtainable due to cognitive status Physical Exam Physical Exam: General exam: Appears comfortable, no acute distress HEENT: Pupils are equal and reactive to light Neck: No JVD, neck is supple trachea is midline Respiratory system: Clear breath sounds bilaterally. Gastrointestinal: Abdomen is soft, non distended, non tender, bowel sounds are present CVS: Regular rate and rhythm. No murmurs, rubs or gallops Musculoskeletal: No joint or muscle tenderness Extremities: Non tender, no edema, peripheral pulses are present Neuro: Oriented x1, no tremors, no focal neurological deficits Skin: No rashes Results & Data Vital Signs (Past 12 Hours) Vital Signs Temp Pulse Resp BP Pulse Ox Pulse Ox Pulse Ox 01/13/19 19:07 101 H 20 95 01/13/19 14:47 37.1 C 93 H 18 148/69 H 93 01/13/19 13:58 92 H 18 94 01/13/19 13:51 95 88 L 01/13/19 12:18 37.5 C 106 H 22 115/71 92 01/13/19 07:27 36.6 C 98 H 24 163/74 H 98 Laboratory Results Laboratory Results - last 24 hr 01/13/19 01/13/19 05:14 05:14 Sodium 132 L Potassium 3.0 L Chloride 95 L Carbon Dioxide 31 Anion Gap 6.0 BUN 11 Creatinine 0.79 Est Cr Clr Drug Dosing 50.2 Est GFR ( Amer) 86.1 Est GFR (Non-Af Amer) 74.3 BUN/Creatinine Ratio 14.0 Glucose 99 Calcium 8.5 25-OH Vitamin D Total 44.3
[2019-01-13] MEDS: ACETAMINOPHEN 325 MG TAB PO PRN (19:29)
[2019-01-13] MEDS: THIAMINE HCL 100 MG in SYRINGE 9 ML IV SCH (20:02)
[2019-01-13] MEDS: ROSUVASTATIN CALCIUM 20 MG TAB PO SCH (20:05)
[2019-01-13] MEDS: MONTELUKAST SODIUM 10 MG TABLET PO SCH (20:05)
[2019-01-14] MEDS ORDERED: GADOBUTROL 30ML VIAL IV PRN (00:04)
[2019-01-14] MEDS: PIPERACILLIN/TAZOBACTAM 3.375 GM in DEXTROSE 5% 100 ML IV SCH ×4 (00:18→23:32)
[2019-01-14] MEDS: LEVALBUTEROL 1.25MG/0.5ML NEB INH SCH ×4 (02:21→19:52)
[2019-01-14] MEDS: ACETAMINOPHEN 325 MG TAB PO PRN ×2 (04:17→13:13)
[2019-01-14 06:40] LABS: Hematocrit (blood only) 32.5 % (37-47); Hemoglobin 11.2 g/dL (12.0-16.0); Mean Corpuscular Hgb Conc 34.5 g/dL (32-36); Mean Corpuscular Volume 89.8 fL (80-100); Mean Platelet Volume 8.1 fL (7.4-10.4); Platelet Count 236 K/uL (130-400); RDW Coefficient of Variation 14.4 % (11.5-14.5); RDW Standard Deviation 47.1 fL (36.4-46.3); Red Blood Count 3.62 M/uL (4.2-5.4); White Blood Count 12.81 K/uL (4.8-10.8)
[2019-01-14 07:06] LABS: Creatinine Clr Calc Pharmacy 47.2 ml/min; Est GFR (African American) 79.9
--- NOTE | 2019-01-14 07:13 | XRay Report ---
XR chest 1V portable CLINICAL HISTORY: fever, cough dyspnea COMPARISON STUDY: 01/11/2019 FINDINGS: Stable emphysematous change. Interstitial prominence left lung base no major change in the prior study. IMPRESSION: Emphysematous change. Potential minimal interstitial infiltrate left base. The above report was generated using voice recognition software. It may contain grammatical, syntax or spelling errors. Electronically signed by: José Miguel Rivas M.D. 01/14/2019 7:12 AM
[2019-01-14 07:31] LABS: Potassium 3.3 mmol/L (3.5-5.1)
--- NOTE | 2019-01-14 07:54 | Magnetic Resonance Report ---
MRI OF THE BRAIN COMBO CLINICAL HISTORY: Change in mental status. Lung cancer. Fever and delirium. COMPARISON STUDY: CT of the brain dated 01/11/2019. TECHNIQUE: MRI of the brain was performed utilizing various T1 and T2-weighted sequences in the axial , sagittal, and coronal planes. Contrast-enhanced sequences were acquired following the administratio n of 5 cc of Gadavist. The examination is compromised by motion artifact. FINDINGS: Brain parenchyma: There is subtle T2 hyperintensity identified throughout the right temporal lobe inv olving both the mcmanus and white matter. This also involves the right frontal pole. There is no associa dwayne abnormal enhancement within this region. Subtle restricted diffusion is noted in the right tempor al lobe. There is age-related involutional change noting mild subcortical and periventricular microan giopathic disease. There is no hemorrhage or mass effect. There is no restricted diffusion typical fo r acute ischemia. No enhancing mass lesion is identified on the postcontrast images. No extra-axial fluid collection is seen. The cerebellar tonsils are normal in configuration. Ventricles, sulci, and cisterns: Prominent secondary to involutional change. Pituitary and sella: Unremarkable. Intracranial vasculature: Normal flow voids are maintained at the skull base. Orbits: The bony orbits are grossly intact. Orbital contents are normal in appearance, noting bilater al ocular lens implants. Sinuses and mastoids: Clear. Calvarium: Unremarkable. Cervical cord: Partially visualized cervical spinal cord is normal in morphology and signal intensity . IMPRESSION: 1. There is significant signal abnormality identified throughout the right temporal lobe as detailed above. Top differential considerations include herpes encephalitis or limbic encephalitis. Clinical c orrelation will be essential. 2. There is no evidence of intracranial metastatic disease. 3. There is no hemorrhage or evidence of acute ischemia. Findings were discussed with Dr. Pennington at the time of interpretation. Electronically signed by: Marlon Stewart M.D. 01/14/2019 7:52 AM
[2019-01-14] MEDS: guaiFENesin 600 MG TABCR PO SCH ×2 (08:37→20:06)
[2019-01-14] MEDS: DOCUSATE SODIUM 100 MG CAP PO SCH ×2 (08:37→20:06)
[2019-01-14] MEDS: PANTOprazole 40 MG TAB PO SCH (08:38)
[2019-01-14] MEDS: DOXYCYCLINE HYCLATE 100 MG CAP PO SCH ×2 (08:38→20:06)
[2019-01-14] MEDS: BuPROPion SR 100 MG TABCR PO SCH (08:38)
[2019-01-14] MEDS: FUROSEMIDE 20 MG TAB PO SCH ×2 (08:38→16:49)
[2019-01-14] MEDS: VENLAFAXINE HCL XR 150 MG CAPXR PO SCH (08:38)
[2019-01-14] MEDS: CYANOCOBALAMIN 500 MCG TABLET (VITAMIN B-12) PO SCH (08:40)
[2019-01-14] MEDS: ASCORBIC ACID 500 MG TAB PO SCH ×2 (08:40→20:06)
[2019-01-14] MEDS: POTASSIUM CHLORIDE 20 MEQ TABCR PO SCH (08:40)
[2019-01-14] MEDS: THIAMINE HCL 100 MG in SYRINGE 9 ML IV SCH (08:40)
[2019-01-14] MEDS: TAMSULOSIN HCL 0.4 MG CAP PO SCH (08:41)
[2019-01-14] MEDS: FLUTICASONE/SALMETEROL (ADVAIR) 500/50 INH 14 PUFF INH SCH ×2 (08:41→20:04)
--- NOTE | 2019-01-14 08:49 | Hospitalist Progress Note ---
Date of Service January 14, 2019 Assessment & Plan (1) Altered mental status: Head CT negative. Probable delirium / metabolic encephalopathy secondary to hyponatremia and other factors. Persistent confusion despite improvement of hyponatremia. Levofloxacin discontinued. Patient has lorazepam prescribed PRN at home, but she is unable to state clearly how often she uses it. Considered benzodiazepine withdrawal, but review of med history only demonstrated 1 Rx recently. Daughter guesses that she drinks a glass of wine daily, but is not certain. Consider alcohol withdrawal. IV thiamine. Try to avoid gabapentin or benzodiazepines if possible. Avoid anticholinergic meds when possible- stopped tiotropium and ipratropium. 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 (2) Encephalitis: Febrile illness with altered mental status. 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 Start acyclovir 10 mg / kg q 8 hrs. Check EEG. Neuro checks. Needs LP, but received SQ enoxaparin last evening and will have to wait. Consult ID and Neuro. (3) Hyponatremia: Serum sodium 125 at time of admission. Nephrology consulted. Urine Osm 566. 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 1200 ml fluid restriction + furosemide 20 mg BID recommended. Serum sodium today = 133. Takes bupropion, venlafaxine, and trazodone - all associated with hyponatremia. May need to make adjustments if serum sodium does not improve. Follow. (4) COPD (chronic obstructive pulmonary disease): Change nebs to levalbuterol. 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 (5) Pneumonia: Congested cough. Temp as high as 39.3. No infiltrates seen on initial CXR. Sputum ordered for gram stain, C&S; no specimen produced thus far. Blood cultures were done 01/11 - negative so far. Was receiving azithromycin 250 mg TIW for COPD + levofloxacin. Levofloxacin may have been contributing to confusion- stopped. Changed antibiotic therapy to doxycycline + piperacillin / tazobactam for broader coverage pending culture results. CXR today - emphysematous changes, possible infiltrate left base. At risk for aspiration. Continue doxy + pip / tazo for possible pneumonia - healthcare acquired vs aspiration. (6) Nocturnal hypoxia: Continue supplemental O2. (7) Squamous cell carcinoma lung: Biopsy of endobronchial lesion 01/04/[address] Bowers. Path consistent with squamous cell Ca. Scheduled for PET scan 01/16- may need to be rescheduled. Scheduled for outpt MRI brain for staging. MRI performed 01/13 - no apparent mets. Outpatient follow-up with Dr. Bowers. (8) GERD (gastroesophageal reflux disease): Continue PPI. (9) Hypokalemia: Serum K 3.5 on admission. K today = 3.3. Replace. Follow. (10) Distal radius fracture, right: Nondisplaced fracture distal radius. Seen in consultation by Ortho. Nonsurgical management / splinting recommended. Continue calcium supplementation. Vitamin D level = 44. (11) Depression: History of anxiety and depression. Usually takes bupropion, buspirone, lorazepam, venlafaxine, trazodone PRN. Best to hold lorazepam due to confusion (unless pt taking it on regular basis). Bupropion, venlafaxine, and trazodone all associated with hyponatremia. May need to make adjustments if serum sodium does not improve. (12) DVT prophylaxis: Increased risk for VTE due to malignancy, age, and other factors. Received SQ enoxaparin, but need to hold for LP. SCD's. Ambulate. (13) Discharge planning issues: Discharge plans to be determined. May need skilled care. Case Management following. Internal Medicine follow-up with Dr. Kenzie Feliciano. Thoracic Medicine follow-up with Dr. Bowers. Orthopedics follow-up with Dr. Jaffe 4 weeks after discharge. Subjective Recheck for multiple problems. Patient seen in their room around 0800. Still confused. Persistent headache. Occasional congested cough. No SOB. Tmax 38.1. Review of Systems: Constitutional- as noted above Cardiac- no anginal symptoms. Pulmonary- as noted above. GI- no nausea, vomiting, diarrhea, melena, hematochezia. - no urinary symptoms. Otherwise, as noted above. Physical Exam Constitutional: no acute distress Respiratory: no respiratory distress Auscultation: + rhonchi (left chest posteriorly) and + wheezes (diffuse) Cardiovascular: Rate/Rhythm: regular rate and regular rhythm Vessels: no JVD Extremities: + calf tenderness; no edema Gastrointestinal (Abdomen): normal bowel sounds, soft, nontender, no hepatosplenomegaly Musculoskeletal: Spine: normal cervical ROM (supple) Skin: no rashes, warm and dry Neurologic: Cranial Nerves: PERRL and EOM intact bilaterally Psychiatric: Orientation: oriented x 3 (missed date by 1 day, otherwise O x 3); + not alert (somnolent, but arousable and conversant) Cognition: + recent memory not intact Results & Data Vital Signs (Past 12 Hours) Vital Signs Temp Pulse Pulse Resp BP Pulse Ox 01/14/19 07:04 79 16 95 01/14/19 06:58 36.7 C 81 22 150/74 H 94 01/14/19 04:09 38.1 C H 87 20 165/80 H 95 01/14/19 00:25 36.9 C 84 24 150/75 H 96 01/13/19 23:58 85 01/13/19 20:52 37.1 C Laboratory Results Laboratory Results - last 24 hr 01/13/19 01/14/19 01/14/19 05:14 06:21 06:21 WBC 12.81 H RBC 3.62 L Hgb 11.2 L Hct 32.5 L MCV 89.8 MCH 30.9 MCHC 34.5 RDW Std Deviation 47.1 H RDW Coeff of Yamini 14.4 Plt Count 236 MPV 8.1 Sodium Potassium Chloride Carbon Dioxide Anion Gap Creatinine 0.84 Est Cr Clr Drug Dosing 47.2 Est GFR ( Amer) 79.9 Est GFR (Non-Af Amer) 69.0 25-OH Vitamin D Total 44.3 01/14/19 06:21 WBC RBC Hgb Hct MCV MCH MCHC RDW Std Deviation RDW Coeff of Yamini Plt Count MPV Sodium 133 L Potassium 3.3 L Chloride 100 Carbon Dioxide 27 Anion Gap 6.0 Creatinine Est Cr Clr Drug Dosing Est GFR ( Amer) Est GFR (Non-Af Amer) 25-OH Vitamin D Total Microbiology 01/11/19 09:15 Blood Blood Culture - Preliminary No growth to date. 01/11/19 09:07 Blood Blood Culture - Preliminary No growth to date. Diagnostic Findings PORTABLE CHEST X-RAY FINDINGS: Stable emphysematous change. Interstitial prominence left lung base no major change in the prior study. IMPRESSION: Emphysematous change. Potential minimal interstitial infiltrate left base. The above report was generated using voice recognition software. It may contain grammatical, syntax or spelling errors. Electronically signed by: José Miguel Rivas M.D. 01/14/2019 7:12 AM MRI BRAIN WITH & WITHOUT CONTRAST IMPRESSION: 1. There is significant signal abnormality identified throughout the right temporal lobe as detailed above. Top differential considerations include herpes encephalitis or limbic encephalitis. Clinical correlation will be essential. 2. There is no evidence of intracranial metastatic disease. 3. There is no hemorrhage or evidence of acute ischemia. Findings were discussed with Dr. Pennington at the time of interpretation. Electronically signed by: Marlon Stewart M.D. 01/14/2019 7:52 AM
[2019-01-14] MEDS: ACYCLOVIR SOD 500 MG in DEXTROSE 5% 100 ML IV SCH ×2 (09:37→18:08)
--- NOTE | 2019-01-14 09:40 | Nephrology Progress Note ---
Date of Service January 14, 2019 Assessment & Plan (1) Hyponatremia: Patient with acute hyponatremia likely due to syndrome of inappropriate ADH. Na 133 today. She had a urine sodium of 76 and the urine osmolarity 566 both consistent with SIADH. Likely triggers of ADH release include pain, mu ltiple antidepressants and cancer. recommend: -Po lasix 20mg bid. Monitor input/output -Fluid restriction of 1200ml daily -Monitor Na daily. No need to monitor frequently (2) Altered mental status: Likely metabolic encephalopathy in setting of multiple psychoactive medications. Hyponatremia less likely to be the main etiology given degree of hyponatremia was mild with sodium of 125 on admission and mental status remains to fluctuate even with improving Na. Consider reducing dose of some of the psychoactive medications like venlafaxine. (3) Hypokalemia: Due to renal potassium wasting in setting of Lasix. Continue potassium chloride 40 mEq daily. She will likely need more potassium chloride but will determine based on tomorrow's labs. Subjective Patient seen in follow-up for hyponatremia and altered mental status. She is not confused this morning. She reports mild shortness of breath. No vomiting or diarrhea. No leg swelling. Sodium is better at 133 today. Review of Systems Review of Systems: All systems reviewed & are unremarkable except as noted in HPI & below Physical Exam Physical Exam: General exam: Appears comfortable, no acute distress HEENT: Pupils are equal and reactive to light Neck: No JVD, neck is supple trachea is midline Respiratory system: Clear breath sounds bilaterally. Gastrointestinal: Abdomen is soft, non distended, non tender, bowel sounds are present CVS: Regular rate and rhythm. No murmurs, rubs or gallops Musculoskeletal: No joint or muscle tenderness Extremities: Non tender, no edema, peripheral pulses are present Neuro: Oriented, no tremors, no focal neurological deficits Skin: No rashes Results & Data Vital Signs (Past 12 Hours) Vital Signs Temp Pulse Pulse Resp BP Pulse Ox 01/14/19 07:04 79 16 95 01/14/19 06:58 36.7 C 81 22 150/74 H 94 01/14/19 04:09 38.1 C H 87 20 165/80 H 95 01/14/19 00:25 36.9 C 84 24 150/75 H 96 01/13/19 23:58 85
--- NOTE | 2019-01-14 10:36 | Infectious Disease Consult ---
Date of Consultation January 14, 2019 Assessment & Plan (1) Encephalitis: agree with acyclovir emperically awaiting LP. EEG to be done today. will continue to follow. blood cultures negative, await HSV PCR History of Present Illness Attending Physician: John Pennington MD pt admitted with sudden onset confusion, daughter [facility] [place] [facility], provides history, patient also answering questions as well. Pt states she is feeling better today but still does not feel well. 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 Confusion was acute, came to ER. ? low Na, uti, as source. Was recently hospitalized afte she had bleeding post bronch, was diagnosed with squamous cell lung ca. was to follow with surgery to begin staging process but had acute change in mental status and was admitted back to hospital. Denies f/c but has had documented fever daily since admission, 01/11 - 39.3, 01/12- 37.8, 01/13 - 38, 01/14 -38.1. She has been asymptomatic, no sweats or chills. Was given steroids and levaquin on last admission, wbc was elevated at 14 on admission, 12 today. MRI brain done as part of her workup, right temporal lobe enhancement noted, concerned for encephalitis. Is receiving anticoagulation so no LP done as of yet. Started on acyclobvir this morning. For EEG. Denies h/o cold sores. no recent oral lesions. no visual complaints, no neck stiffness but does c/o headache, diffuse on my exam. no cp, sob, cough, wheeze, cxr done today, ? infiltrate, started on zosyn. no n/v/d/abd pain, no gu complaints. blood cultures negative. Allergies Allergy/AdvReac Type Severity Reaction Status Date / Time No Known Allergies Allergy Verified 01/11/19 09:15 Home Medications Home Medications Medication Instructions Recorded Confirmed Type Spiriva with HandiHaler 1 cap INHALATION QAM 11/28/18 01/11/19 History albuterol sulfate [Ventolin HFA] 2 puff INHALATION Q4H PRN 11/28/18 01/11/19 History ascorbic acid (vitamin C) 1,000 mg PO QAM 11/28/18 01/11/19 History calcium carbonate [Calcium 500] 500 mg PO TID 11/28/18 01/11/19 History cyanocobalamin (vitamin B-12) 1,000 mcg PO QAM 11/28/18 01/11/19 History fluticasone propion-salmeterol 1 inh INHALATION BID 11/28/18 01/11/19 History [Advair Diskus] fluticasone propionate 2 spry INTRANASAL HS 11/28/18 01/11/19 History ipratropium-albuterol 3 ml INHALATION QID PRN 11/28/18 01/11/19 History montelukast 10 mg PO HS 11/28/18 01/11/19 History pantoprazole 40 mg PO QAM 11/28/18 01/11/19 History polyethylene glycol 3350 [Miralax] 17 g PO QAM PRN 11/28/18 01/11/19 History rosuvastatin 20 mg PO HS 11/28/18 01/11/19 History sennosides [senna] 17.2 mg PO BID PRN 11/28/18 01/11/19 History trazodone 75 mg PO HS PRN 11/28/18 01/11/19 History venlafaxine 150 mg PO QAM 11/28/18 01/11/19 History Women's Daily Formula 1 tab PO QAM 12/31/18 01/11/19 History ipratropium-albuterol 3 ml NEB QIDR 10 Days #90 ml 01/05/19 01/11/19 Rx aspirin 81 mg PO DAILY 01/11/19 01/11/19 History azithromycin [Zithromax] 250 mg PO 3XWK 01/11/19 01/11/19 History bupropion HCl [Wellbutrin SR] 100 mg PO DAILY 01/11/19 01/11/19 History buspirone 5 mg PO TID 01/11/19 01/11/19 History cetirizine 10 mg PO DAILY PRN 01/11/19 01/11/19 History docusate sodium [Colace] 100 mg PO BID 01/11/19 01/11/19 History levofloxacin 500 mg PO DAILY 01/11/19 01/11/19 History linaclotide [Linzess] 145 mcg PO DAILY 01/11/19 01/11/19 History lorazepam 0.5 mg PO BID PRN 01/11/19 01/11/19 History prednisone 10 mg PO UD 01/11/19 01/11/19 History tamsulosin 0.4 mg PO DAILY 01/11/19 01/11/19 History wheat dextrin [Benefiber Clear SF 1 packet PO DAILY PRN 01/11/19 01/11/19 History (dextrin)] Patient History Medical History Hyperlipidemia (Chronic) On home oxygen therapy (Chronic) o2 @ 2L N/C hs and prn Hiatal hernia (Chronic) GERD (gastroesophageal reflux disease) (Chronic) Scoliosis (Chronic) Osteoarthritis (Chronic) History of anesthesia reaction (Chronic) felt bronchoscopy procedure History of colon polyps (Chronic) Anxiety (Chronic) Depression (Chronic) Osteoporosis (Chronic) Chronic constipation (Chronic) Squamous cell carcinoma lung (Chronic) 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) COPD (chronic obstructive pulmonary disease) (Chronic) Surgical History History of bilateral cataract extraction (Chronic) History of detached retina repair (Chronic) right eye History of tonsillectomy and adenoidectomy (Chronic) History of wisdom tooth extraction (Chronic) History of Mohs micrographic surgery for skin cancer (Chronic) History of arthroplasty of right hip (Chronic) History of open reduction and internal fixation (ORIF) procedure (Chronic) right hip History of repair of right rotator cuff (Chronic) History of repair of left rotator cuff (Chronic) History of thumb surgery (Chronic) left History of dilatation and curettage (Chronic) History of left oophorectomy (Chronic) Family History Mother Family hx of colon cancer Social History Preferred Language: Citizen Of [place] Communication Ability: Effective Welfare Director Required: No Beliefs That Will Affect Care: None marital status: Unknown Current Living Situation: Personal Care Facility Current Living Situation Comment: Lives in the independent side of the [facility] Other Information That Helps Us Care for You: No Feels Safe at Home: Yes Safety Concerns: Feels Safe At This Time Smoking Status: Former smoker Tobacco Type: cigarettes Do You Dip or Chew Tobacco: No Second Hand Exposure: No Tobacco Cessation Education Requested by Patient: No Hx Alcohol Use: Yes Alcohol type: wine Hx Substance Use: No Review of Systems Review of Systems: All systems reviewed & are unremarkable except as noted in HPI & below Physical Exam Constitutional: WD/WN, vitals as above Eyes: PERRL, conjunctivae normal, anicteric sclerae ENMT: Mouth: no lip abnormality, no oropharynx abnormality and no oral mucosal abnormality dmm Neck: normal visual inspection Respiratory: normal respiratory effort, lungs clear to auscultation Cardiovascular: RRR, no murmur, no edema Gastrointestinal (Abdomen): normal bowel sounds, soft, nontender, no hepatosplenomegaly Musculoskeletal: no cyanosis or clubbing, extremities motor strength 5/5 Head/Neck/Chest: neck supple Skin: no rashes, warm and dry Neurologic: normal touch/pain/proprioception and moves all extremities Speech / Cognition: normal speech Psychiatric: A+Ox3, euthymic affect Speech: normal rate/rhythm/volume of speech Results & Data Vital Signs (Past 12 Hours) Vital Signs Temp Pulse Pulse Resp BP Pulse Ox 01/14/19 07:04 79 16 95 01/14/19 06:58 36.7 C 81 22 150/74 H 94 01/14/19 04:09 38.1 C H 87 20 165/80 H 95 01/14/19 00:25 36.9 C 84 24 150/75 H 96 01/13/19 23:58 85 Laboratory Results Microbiology 01/11/19 09:15 Blood Blood Culture - Preliminary No growth to date. 01/11/19 09:07 Blood Blood Culture - Preliminary No growth to date.
--- NOTE | 2019-01-14 14:04 | Neurology Consultation ---
Date of Consultation January 14, 2019 Assessment & Plan (1) Altered mental status: 1. LP- scheduled for tomorrow due to Lovenox given 2. Acyclovir 500 mg q8 hours- ID to direct length of treatment 3. ID - for further recommendation 4. medical management per primary team 5. EEG- pending read 6. 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 labs for Lyme PCR, EBV, HSV, and neoplastic panel further recommendations once labs are resulted Supervising Physician Co-Signing Physician Notes I have seen and discussed above patient with Dr Omar Rodriguez. Patient was seen and examined. Daughter at bedside. Patient is awake. Oriented to age, month, and year. Comprehension is intact. Following simple commands. No drift in upper or lower extremities. Tremulous in bilateral upper extremities. No ataxia with finger to nose. Impaired sensation in left hand to numbers suggestive of cortical sensory loss. She also has a significant expressive aphasia on my examine. She is confused to situation and seems to perseverate with situation and going home this evening. MRI brain reviewed. My impression is T2 FLAIR hyperintensity in the right temporal lobe with no enhancement. EEG reviewed. Focal slowing in right temporal head region with rare epileptiform discharge. This was a 20-min routine EEG. Differential diagnosis certainly includes HSV Encephalitis Vs Paraneoplastic limbic encephalitis. PAtient has history of lung cancer. Agree with continuing Acylovir. ID following. Recommend starting Keppra 750 mg twice daily due to concern for subclinical focal seizures. This was discussed wt Dr. Pennington. Recommend lumbar puncture. CSF studies recommendations include: Protein, glucose, cell count, HSV, EBV, Lyme, gram stain & culture, JUMANA virus, cyto pathology, flow cytometry, HIV, CMV. Would also add paraneoplastic panel CSF if possible. I would recommend checking a serum Paraneoplastic panel. Neuro checks Q4hr, Seizure precautions. Will continue to follow. I did discuss with daughter at bedside. Please call me with questions. 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 She was recently admitted to [facility] 01/03 through 01/05 for observation after she developed bleeding during an outpatient bronchoscopy. During that bronchoscopy, patient was found to have a left upper lobe lesion however given friability, there was unable to be biopsied at that time. Dr. 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 She was discharged on a long prednisone taper and Levaquin for [address] Bowers was planning a brain MRI and PET scan for staging. She had developing some confusion about 4 days ago which got progressively worse. She also suffered a fall injuring her right wrist. Her labs show sodium 125. She currently is complaining of a headache frontal lobe and back pain which she attributes the bed. denies CP, worsening SOB, abdominal pain, one sided weakness, numbness tingling, N, V, vision changes. She was a smoker but quit 3 months ago. Allergies Allergy/AdvReac Type Severity Reaction Status Date / Time No Known Allergies Allergy Verified 01/11/19 09:15 Home Medications Home Medications Medication Instructions Recorded Confirmed Type Spiriva with HandiHaler 1 cap INHALATION QAM 11/28/18 01/11/19 History albuterol sulfate [Ventolin HFA] 2 puff INHALATION Q4H PRN 11/28/18 01/11/19 His tory ascorbic acid (vitamin C) 1,000 mg PO QAM 11/28/18 01/11/19 History calcium carbonate [Calcium 500] 500 mg PO TID 11/28/18 01/11/19 History cyanocobalamin (vitamin B-12) 1,000 mcg PO QAM 11/28/18 01/11/19 History fluticasone propion-salmeterol 1 inh INHALATION BID 11/28/18 01/11/19 History [Advair Diskus] fluticasone propionate 2 spry INTRANASAL HS 11/28/18 01/11/19 History ipratropium-albuterol 3 ml INHALATION QID PRN 11/28/18 01/11/19 History montelukast 10 mg PO HS 11/28/18 01/11/19 History pantoprazole 40 mg PO QAM 11/28/18 01/11/19 History polyethylene glycol 3350 [Miralax] 17 g PO QAM PRN 11/28/18 01/11/19 History rosuvastatin 20 mg PO HS 11/28/18 01/11/19 History sennosides [senna] 17.2 mg PO BID PRN 11/28/18 01/11/19 History trazodone 75 mg PO HS PRN 11/28/18 01/11/19 History venlafaxine 150 mg PO QAM 11/28/18 01/11/19 History Women's Daily Formula 1 tab PO QAM 12/31/18 01/11/19 History ipratropium-albuterol 3 ml NEB QIDR 10 Days #90 ml 01/05/19 01/11/19 Rx aspirin 81 mg PO DAILY 01/11/19 01/11/19 History azithromycin [Zithromax] 250 mg PO 3XWK 01/11/19 01/11/19 History bupropion HCl [Wellbutrin SR] 100 mg PO DAILY 01/11/19 01/11/19 History buspirone 5 mg PO TID 01/11/19 01/11/19 History cetirizine 10 mg PO DAILY PRN 01/11/19 01/11/19 History docusate sodium [Colace] 100 mg PO BID 01/11/19 01/11/19 History levofloxacin 500 mg PO DAILY 01/11/19 01/11/19 History linaclotide [Linzess] 145 mcg PO DAILY 01/11/19 01/11/19 History lorazepam 0.5 mg PO BID PRN 01/11/19 01/11/19 History prednisone 10 mg PO UD 01/11/19 01/11/19 History tamsulosin 0.4 mg PO DAILY 01/11/19 01/11/19 History wheat dextrin [Benefiber Clear SF 1 packet PO DAILY PRN 01/11/19 01/11/19 History (dextrin)] Patient History Medical History Hyperlipidemia (Chronic) On home oxygen therapy (Chronic) o2 @ 2L N/C hs and prn Hiatal hernia (Chronic) GERD (gastroesophageal reflux disease) (Chronic) Scoliosis (Chronic) Osteoarthritis (Chronic) History of anesthesia reaction (Chronic) felt bronchoscopy procedure History of colon polyps (Chronic) Anxiety (Chronic) Depression (Chronic) Osteoporosis (Chronic) Chronic constipation (Chronic) Squamous cell carcinoma lung (Chronic) 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) COPD (chronic obstructive pulmonary disease) (Chronic) Surgical History History of bilateral cataract extraction (Chronic) History of detached retina repair (Chronic) right eye History of tonsillectomy and adenoidectomy (Chronic) History of wisdom tooth extraction (Chronic) History of Mohs micrographic surgery for skin cancer (Chronic) History of arthroplasty of right hip (Chronic) History of open reduction and internal fixation (ORIF) procedure (Chronic) right hip History of repair of right rotator cuff (Chronic) History of repair of left rotator cuff (Chronic) History of thumb surgery (Chronic) left History of dilatation and curettage (Chronic) History of left oophorectomy (Chronic) Family History Mother Family hx of colon cancer Social History Preferred Language: [place] Communication Ability: Effective Endoscopy Technician Required: No Beliefs That Will Affect Care: None marital status: Unknown Current Living Situation: Personal Care Facility Current Living Situation Comment: Lives in the independent side of the [facility] Other Information That Helps Us Care for You: No Feels Safe at Home: Yes Safety Concerns: Feels Safe At This Time Smoking Status: Former smoker Tobacco Type: cigarettes Do You Dip or Chew To bacco: No Second Hand Exposure: No Tobacco Cessation Education Requested by Patient: No Hx Alcohol Use: Yes Alcohol type: wine Hx Substance Use: No Physical Exam Physical Exam: Physical Exam: Constitutional: appearance nourished, ill appearing Ears, Nose, Mouth and Throat: mucous membranes moist, no injection and skin normal, eyes normal Cardiovascular: normal S-1 and S-2 and regular rate and rhythm Respiratory: course breath sounds Musculoskeletal: no peripheral edema and good distal pulses Skin: poor turgor thin pale, ecchymosis right hand Eyes: extraocular muscles intact (EOMI) and pupils equal, round and reactive to light (PERRL) NEUROLOGIC EXAMINATION: Mental status: Alert and interactive Oriented to [facility], 2019, lives at [facility] at [facility] Oriented to person Speech fluent with no evidence of aphasia. able to close eyes stick out tongue, point to ceiling with left hand Cranial Nerves smile eye brow raise symmetric Reflexes: Deep tendon reflexes were symmetrical and graded 2/5. Plantar responses were flexor. Sensory: light and cool touch intact Coordination: finger to nose no bi pass, rapid hand movement intact Gait/Stance: Posture sitting up in bed Motor: Negative for pronator drift of out stretched arms with eyes closed. Strength: bicep triceps on left 4+/5, right not assess due to fracture, hip flex plantar flex ext 4+/5 bilaterally Results & Data Vital Signs (Past 12 Hours) Vital Signs Temp Pulse Resp BP BP Pulse Ox 01/14/19 12:50 37.6 C H 102 H 20 156/74 H 95 01/14/19 11:43 95 01/14/19 07:04 79 16 95 01/14/19 06:58 36.7 C 81 22 150/74 H 94 01/14/19 04:09 38.1 C H 87 20 165/80 H 95 Laboratory Results Abnormal lab results 01/14/19 01/14/19 Range/Units 06:21 06:21 WBC 12.81 H (4.8-10.8) K/uL RBC 3.62 L (4.2-5.4) M/uL Hgb 11.2 L (12.0-16.0) g/dL Hct 32.5 L (37-47) % RDW Std Deviation 47.1 H (36.4-46.3) fL Sodium 133 L (136-145) mmol/L Potassium 3.3 L (3.5-5.1) mmol/L Diagnostic Findings MRI brain- here is significant signal abnormality identified throughout the right temporal lobe as detailed above. Top differential considerations include herpes encephalitis or limbic encephalitis. Clinical correlation will be essential. There is no evidence of intracranial metastatic disease. There is no hemorrhage or evidence of acute ischemia.
--- NOTE | 2019-01-14 16:11 | Procedure Note ---
EEG Procedure Note Date of Service January 14, 2019 Start / End Times Start Time: 10:16 End Time: 10:[address] John Pennington History A 73 year old woman admitted with encephalopathy. MRI shows right temporal lobe hyperintensity. She has a history of lung cancer. EEG performed for evaluation of epileptiform activity. Home Medication List Home Medications Medication Instructions Recorded Confirmed Type Spiriva with HandiHaler 1 cap INHALATION QAM 11/28/18 01/11/19 History albuterol sulfate [Ventolin HFA] 2 puff INHALATION Q4H PRN 11/28/18 01/11/19 History ascorbic acid (vitamin C) 1,000 mg PO QAM 11/28/18 01/11/19 History calcium carbonate [Calcium 500] 500 mg PO TID 11/28/18 01/11/19 History cyanocobalamin (vitamin B-12) 1,000 mcg PO QAM 11/28/18 01/11/19 History fluticasone propion-salmeterol 1 inh INHALATION BID 11/28/18 01/11/19 History [Advair Diskus] fluticasone propionate 2 spry INTRANASAL HS 11/28/18 01/11/19 History ipratropium-albuterol 3 ml INHALATION QID PRN 11/28/18 01/11/19 History montelukast 10 mg PO HS 11/28/18 01/11/19 History pantoprazole 40 mg PO QAM 11/28/18 01/11/19 History polyethylene glycol 3350 [Miralax] 17 g PO QAM PRN 11/28/18 01/11/19 History rosuvastatin 20 mg PO HS 11/28/18 01/11/19 History sennosides [senna] 17.2 mg PO BID PRN 11/28/18 01/11/19 History trazodone 75 mg PO HS PRN 11/28/18 01/11/19 History venlafaxine 150 mg PO QAM 11/28/18 01/11/19 History Women's Daily Formula 1 tab PO QAM 12/31/18 01/11/19 History ipratropium-albuterol 3 ml NEB QIDR 10 Days #90 ml 01/05/19 01/11/19 Rx aspirin 81 mg PO DAILY 01/11/19 01/11/19 History azithromycin [Zithromax] 250 mg PO 3XWK 01/11/19 01/11/19 History bupropion HCl [Wellbutrin SR] 100 mg PO DAILY 01/11/19 01/11/19 History buspirone 5 mg PO TID 01/11/19 01/11/19 History cetirizine 10 mg PO DAILY PRN 01/11/19 01/11/19 History docusate sodium [Colace] 100 mg PO BID 01/11/19 01/11/19 History levofloxacin 500 mg PO DAILY 01/11/19 01/11/19 History linaclotide [Linzess] 145 mcg PO DAILY 01/11/19 01/11/19 History lorazepam 0.5 mg PO BID PRN 01/11/19 01/11/19 History prednisone 10 mg PO UD 01/11/19 01/11/19 History tamsulosin 0.4 mg PO DAILY 01/11/19 01/11/19 History wheat dextrin [Benefiber Clear SF 1 packet PO DAILY PRN 01/11/19 01/11/19 History (dextrin)] Inpatient Medication List Acetaminophen (Tylenol) 650 mg PO Q4H PRN PRN Reason: Pain or Fever Stop: 02/10/19 14:17 Last Admin: 01/14/19 13:13 Dose: 650 mg Documented by: [id number] Admin: 01/14/19 04:17 Dose: 650 mg Documented by: [id number] Admin: 01/13/19 19:29 Dose: 650 mg Documented by: [id number] Admin: 01/12/19 15:26 Dose: 650 mg Documented by: [id number] Admin: 01/11/19 19:54 Dose: 650 mg Documented by: [id number] Ascorbic Acid (Vitamin C) [facility] [place] Stop: 02/11/19 08:59 Last Admin: 01/14/19 08:40 Dose: 1,000 mg Documented by: [id number] Admin: 01/13/19 08:13 Dose: 1,000 mg Documented by: [id number] Admin: 01/12/19 08:17 Dose: 1,000 mg Documented by: [id number] Bupropion HCl (Wellbutrin-Sr) 100 mg PO DAILY [facility] Stop: 02/11/19 08:59 Last Admin: 01/14/19 08:38 Dose: 100 mg Documented by: [id number] Admin: 01/13/19 08:13 Dose: 100 mg Documented by: [id number] Admin: 01/12/19 08:16 Dose: 100 mg Documented by: [id number] Buspirone HCl (Buspar) 5 mg PO BID [facility] Stop: 02/10/19 20:59 Last Admin: 01/14/19 08:39 Dose: 5 mg Documented by: [id number] Admin: 01/13/19 20:05 Dose: 5 mg Documented by: [id number] Admin: 01/13/19 08:13 Dose: 5 mg Documented by: [id number] Admin: 01/12/19 20:59 Dose: 5 mg Documented by: [id number] Admin: 01/12/19 08:16 Dose: 5 mg Documented by: [id number] Admin: 01/11/19 19:54 Dose: 5 mg Documented by: [id number] Cyanocobalamin (Vitamin B-12) 1,000 mcg PO QAM [facility] Stop: 02/11/19 08:59 Last Admin: 01/14/19 08:40 Dose: 1,000 mcg Documented by: [id number] Admin: 01/13/19 08:13 Dose: 1,000 mcg Documented by: [id number] Admin: 01/12/19 08:17 Dose: 1,000 mcg Documented by: [id number] Docusate Sodium (Colace) 100 mg PO BID [facility] Stop: 02/10/19 20:59 Last Admin: 01/14/19 08:37 Dose: 100 mg Documented by: [id number] Admin: 01/13/19 20:05 Dose: 100 mg Documented by: [id number] Admin: 01/13/19 08:13 Dose: 100 mg Documented by: [id number] Admin: 01/12/19 20:59 Dose: 100 mg Documented by: [id number] Admin: 01/12/19 08:18 Dose: 100 mg Documented by: [id number] Admin: 01/11/19 19:54 Dose: 100 mg Documented by: [id number] Doxycycline Hyclate (Vibramycin) 100 mg PO BID [facility] Stop: 01/19/19 20:59 Last Admin: 01/14/19 08:38 Dose: 100 mg Documented by: [id number] Admin: 01/13/19 20:05 Dose: 100 mg Documented by: [id number] Admin: 01/13/19 08:13 Dose: 100 mg Documented by: [id number] Admin: 01/12/19 21:00 Dose: 100 mg Documented by: [id number] Furosemide (Lasix) 20 mg PO BID17 [facility] Stop: 02/11/19 08:59 Last Admin: 01/14/19 08:38 Dose: 20 mg Documented by: [id number] Admin: 01/13/19 17:51 Dose: 20 mg Documented by: [id number] Admin: 01/13/19 08:14 Dose: 20 mg Documented by: [id number] Admin: 01/12/19 15:23 Dose: 20 mg Documented by: [id number] Admin: 01/12/19 10:31 Dose: 20 mg Documented by: [id number] Gadobutrol (Gadavist 30ml) 5 ml IV ONCE PRN PRN Reason: Interaction Checking Stop: 01/18/19 00:03 Last Admin: 01/13/19 23:42 Dose: 5 ml Documented by: [id number] Guaifenesin (Mucinex) 600 mg PO Q12 [facility] Stop: 02/11/19 20:59 Last Admin: 01/14/19 08:37 Dose: 600 mg Documented by: [id number] Admin: 01/13/19 20:05 Dose: 600 mg Documented by: [id number] Admin: 01/13/19 09:01 Dose: 600 mg Documented by: [id number] Admin: 01/12/19 21:01 Dose: 600 mg Documented by: [id number] Piperacillin Sod/Tazobactam (Sod 3.375 gm/ Dextrose) 115 mls @ 28.75 mls/hr IV Q8H [facility] Stop: 01/19/19 15:59 Last Infusion: 01/14/19 13:13 Dose: 0 mls/hr Documented by: [id number] Admin: 01/14/19 08:45 Dose: 28.8 mls/hr Documented by: [id number] Infusion: 01/14/19 04:18 Dose: 0 mls/hr Documented by: [id number] Admin: 01/14/19 00:18 Dose: 28.8 mls/hr Documented by: [id number] Infusion: 01/13/19 21:51 Dose: 0 mls/hr Documented by: [id number] Admin: 01/13/19 17:50 Dose: 28.8 mls/hr Documented by: [id number] Infusion: 01/13/19 12:23 Dose: 0 mls/hr Documented by: [id number] Admin: 01/13/19 08:12 Dose: 28.8 mls/hr Documented by: [id number] Infusion: 01/13/19 03:20 Dose: 0 mls/hr Documented by: [id number] Admin: 01/12/19 23:12 Dose: 28.8 mls/hr Documented by: [id number] Thiamine HCl 100 mg/ Syringe 10 mls @ 2 mls/min IV QAM [facility] Stop: 02/12/19 19:29 Last Admin: 01/14/19 08:40 Dose: 2 mls/min Documented by: [id number] Admin: 01/13/19 20:02 Dose: 2 mls/min Documented by: [id number] Acyclovir Sodium 500 mg/ (Dextrose) 110 mls @ 100 mls/hr IV Q8H [facility]; Protocol Stop: 01/24/19 09:59 Last Infusion: 01/14/19 11:12 Dose: 0 mls/hr Documented by: [id number] Admin: 01/14/19 09:37 Dose: 100 mls/hr Documented by: [id number] Levalbuterol HCl (Xopenex 1.25mg/0.5ml Neb) 1.25 mg INH Q6R [facility] Stop: 02/11/19 19:59 Last Admin: 01/14/19 14:01 Dose: 1.25 mg Documented by: [id number] Admin: 01/14/19 07:04 Dose: 1.25 mg Documented by: [id number] Admin: 01/14/19 02:21 Dose: Not Given Documented by: [id number] Admin: 01/13/19 19:04 Dose: 1.25 mg Documented by: [id number] Admin: 01/13/19 13:58 Dose: 1.25 mg Documented by: [id number] Admin: 01/13/19 06:58 Dose: 1.25 mg Documented by: [id number] Admin: 01/13/19 01:52 Dose: 1.25 mg Documented by: [id number] Admin: 01/12/19 18:55 Dose: 1.25 mg Documented by: [id number] Miscellaneous (Order Awaiting Action) 1 ea N/A DAILY [facility] Stop: 02/11/19 08:59 Last Admin: 01/14/19 08:41 Dose: Not Given Documented by: [id number] Admin: 01/13/19 08:15 Dose: Not Given Documented by: [id number] Admin: 01/12/19 08:19 Dose: Not Given Documented by: [id number] Montelukast Sodium (Singulair) 10 mg PO [facility] Stop: 02/10/19 20:59 Last Admin: 01/13/19 20:05 Dose: 10 mg Documented by: [id number] Admin: 01/12/19 21:00 Dose: 10 mg Documented by: [id number] Admin: 01/11/19 19:54 Dose: 10 mg Documented by: [id number] Pantoprazole Sodium (Protonix) 40 mg PO QAM [facility] Stop: 02/11/19 08:59 Last Admin: 01/14/19 08:38 Dose: 40 mg Documented by: [id number] Admin: 01/13/19 08:13 Dose: 40 mg Documented by: [id number] Admin: 01/12/19 08:16 Dose: 40 mg Documented by: [id number] Polyethylene Glycol (Miralax Powder Packet) 17 gm PO QAM PRN PRN Reason: Constipation Stop: 02/10/19 14:17 Last Admin: 01/14/19 12:24 Dose: 17 gm Documented by: [id number] Potassium Chloride (Klor-Con M20) 40 meq PO QAM [facility] Stop: 02/12/19 08:59 Last Admin: 01/14/19 08:40 Dose: 40 meq Documented by: [id number] Admin: 01/13/19 10:15 Dose: 40 meq Documented by: [id number] Rosuvastatin Calcium (Crestor) 20 mg PO [facility] Stop: 02/10/19 20:59 Last Admin: 01/13/19 20:05 Dose: 20 mg Documented by: [id number] Admin: 01/12/19 20:59 Dose: 20 mg Documented by: [id number] Admin: 01/11/19 19:54 Dose: 20 mg Documented by: [id number] Fluticasone/Salmeterol (Advair Diskus 500/50) 1 puffs INH BID [facility] Stop: 02/10/19 20:59 Last Admin: 01/14/19 08:41 Dose: 1 puffs Documented by: [id number] Admin: 01/13/19 20:02 Dose: 1 puffs Documented by: [id number] Admin: 01/13/19 08:12 Dose: 1 puffs Documented by: [id number] Admin: 01/12/19 20:56 Dose: 1 puffs Documented by: [id number] Admin: 01/12/19 08:18 Dose: 1 puffs Documented by: [id number] Admin: 01/11/19 19:54 Dose: 1 puffs Documented by: [id number] Sennosides (Senokot) 17.2 mg PO BID PRN PRN Reason: Constipation Stop: 02/10/19 14:17 Last Admin: 01/12/19 08:19 Dose: 17.2 mg Documented by: [id number] Tamsulosin HCl (Flomax) 0.4 mg PO DAILY [facility] Stop: 02/11/19 08:59 Last Admin: 01/14/19 08:41 Dose: 0.4 mg Documented by: [id number] Admin: 01/13/19 08:13 Dose: 0.4 mg Documented by: [id number] Admin: 01/12/19 08:16 Dose: 0.4 mg Documented by: [id number] Venlafaxine HCl (Effexor Extended Release) 150 mg PO QAM [facility] Stop: 02/11/19 08:59 Last Admin: 01/14/19 08:38 Dose: 150 mg Documented by: [id number] Admin: 01/13/19 08:14 Dose: 150 mg Documented by: [id number] Admin: 01/12/19 08:18 Dose: 150 mg Documented by: [id number] Discontinued Medications Albuterol (Duoneb) 3 ml NEB QIDR [facility] Stop: 02/10/19 15:59 Last Admin: 01/12/19 14:26 Dose: 3 ml Documented by: [id number] Admin: 01/12/19 11:14 Dose: 3 ml Documented by: [id number] Admin: 01/12/19 06:56 Dose: 3 ml Documented by: [id number] Admin: 01/11/19 19:24 Dose: 3 ml Documented by: [id number] Admin: 01/11/19 15:27 Dose: 3 ml Documented by: [id number] Aspirin (Ecotrin Ectab) 81 mg PO DAILY [facility] Stop: 02/11/19 08:59 Last Admin: 01/13/19 08:13 Dose: 81 mg Documented by: [id number] Admin: 01/12/19 08:16 Dose: 81 mg Documented by: [id number] Azithromycin (Zithromax) 250 mg PO MoWeFr@0900 [facility] Stop: 01/18/19 15:29 Last Admin: 01/11/19 16:36 Dose: 250 mg Documented by: [id number] Calcium Carbonate (Os-Giuseppe 500) 1,250 mg PO TIDM [facility] Stop: 02/10/19 16:59 Last Admin: 01/12/19 15:24 Dose: 1,250 mg Documented by: [id number] Admin: 01/12/19 11:04 Dose: 1,250 mg Documented by: [id number] Admin: 01/12/19 08:17 Dose: 1,250 mg Documented by: [id number] Admin: 01/11/19 16:36 Dose: 1,250 mg Documented by: [id number] Enoxaparin Sodium (Lovenox) 40 mg SQ Q24H [facility] Stop: 02/10/19 15:59 Last Admin: 01/13/19 17:51 Dose: 40 mg Documented by: [id number] Admin: 01/12/19 15:21 Dose: 40 mg Documented by: [id number] Admin: 01/11/19 16:36 Dose: 40 mg Documented by: [id number] Sodium Chloride (Nss) 500 mls @ 999 mls/hr IV .Q31M [facility] Stop: 01/11/19 09:30 Last Infusion: 01/11/19 10:32 Dose: 0 mls/hr Documented by: [id number] Admin: 01/11/19 09:53 Dose: 999 mls/hr Documented by: [id number] Sodium Chloride (Nss 1000ml) 1,000 mls @ 80 mls/hr IV .[id number] [facility] Stop: 02/10/19 12:29 Last Admin: 01/11/19 14:19 Dose: Not Given Documented by: [id number] Piperacillin Sod/Tazobactam (Sod 3.375 gm/ Dextrose) 115 mls @ 220 mls/hr IV 1815 [facility] Stop: 01/12/19 18:46 Last Infusion: 01/12/19 18:48 Dose: 0 mls/hr Documented by: [id number] Admin: 01/12/19 18:14 Dose: 220 mls/hr Documented by: [id number] Ipratropium Felt (Atrovent 0.02% 0.5mg/2.5ml) 0.5 mg INH Q6R [facility] Stop: 02/11/19 19:59 Last Admin: 01/13/19 19:04 Dose: 0.5 mg Documented by: [id number] Admin: 01/13/19 13:58 Dose: 0.5 mg Documented by: [id number] Admin: 01/13/19 06:58 Dose: 0.5 mg Documented by: [id number] Admin: 01/13/19 01:50 Dose: 0.5 mg Documented by: [id number] Admin: 01/12/19 18:55 Dose: 0.5 mg Documented by: [id number] Levofloxacin (Levaquin) 500 mg PO DAILY [facility] Stop: 01/12/19 09:01 Last Admin: 01/12/19 08:18 Dose: 500 mg Documented by: [id number] Multivitamins/Minerals (Multivitamin W/ Minerals Tab) 1 tab PO QAM [facility] Stop: 02/11/19 08:59 Last Admin: 01/12/19 08:19 Dose: 1 tab Documented by: [id number] Potassium Chloride (Klor-Con M20) 40 meq PO NOW STA Stop: 01/11/19 17:23 Last Admin: 01/11/19 18:32 Dose: 40 meq Documented by: [id number] Potassium Chloride (Klor-Con M10) 10 meq PO TID [facility] Stop: 02/11/19 20:59 Last Admin: 01/12/19 20:59 Dose: 10 meq Documented by: [id number] Potassium Chloride (Klor-Con M10) 40 meq PO NOW ONE Stop: 01/13/19 06:56 Last Admin: 01/13/19 08:12 Dose: 40 meq Documented by: [id number] Prednisone (Prednisone) 30 mg PO DAILY [facility]; [facility] Stop: 01/26/19 08:59 Last Admin: 01/13/19 08:13 Dose: 30 mg Documented by: [id number] Admin: 01/12/19 08:20 Dose: 30 mg Documented by: [id number] Tiotropium Felt (Spiriva) 1 puffs INH QAM [facility] Stop: 02/11/19 08:59 Last Admin: 01/13/19 08:14 Dose: 1 puffs Documented by: [id number] Admin: 01/12/19 08:20 Dose: 1 puffs Documented by: [id number] Description REPORT: This is a 21 electrode EEG with a single channel dedicated to limited EKG. The electrodes were placed in accordance with the International 10-20 system. At the onset of the EEG the patient is in an altered mental state. The posterior dominant rhythm is not well seen. The background is asymmetric and consist of 5-7 Hz theta activity with intermittent faster frequencies with increased 3-5 theta delta activity in the right temporal head region. There is a single right temporal sharp wave recorded. INTERPRETATION : This is an abnormal EEG in a patient with altered mentation due to 1. Single right temporal epileptiform discharge suggestive of an underlying predisposition for seizures from this area, 2. Focal slowing in the right temporal head region suggestive of an underlying structural abnormality, 3. D iffuse background slowing suggestive of a non specific encephalopathy.
[2019-01-14] MEDS: ROSUVASTATIN CALCIUM 20 MG TAB PO SCH (20:06)
[2019-01-14] MEDS: MONTELUKAST SODIUM 10 MG TABLET PO SCH (20:06)
[2019-01-14] MEDS: levETIRAcetam 250 MG TAB PO SCH (22:07)
[2019-01-15] MEDS: ACYCLOVIR SOD 500 MG in DEXTROSE 5% 100 ML IV SCH ×3 (01:47→18:55)
[2019-01-15] MEDS: LEVALBUTEROL 1.25MG/0.5ML NEB INH SCH ×4 (01:55→19:15)
[2019-01-15 06:02] LABS: Hematocrit (blood only) 34.7 % (37-47); Hemoglobin 12.1 g/dL (12.0-16.0); Mean Corpuscular Hgb Conc 34.9 g/dL (32-36); Mean Corpuscular Volume 89.7 fL (80-100); Platelet Count 261 K/uL (130-400); RDW Coefficient of Variation 14.5 % (11.5-14.5); RDW Standard Deviation 47.3 fL (36.4-46.3); Red Blood Count 3.87 M/uL (4.2-5.4); White Blood Count 13.56 K/uL (4.8-10.8)
[2019-01-15 06:39] LABS: BUN Creatinine Ratio 18.4 (10-20); Calcium 8.4 mg/dl (8.5-10.1); Creatinine Clr Calc Pharmacy 59.1 ml/min; Est GFR (African American) 101.1; Est GFR (Non-African American) 87.2; Potassium 3.4 mmol/L (3.5-5.1)
[2019-01-15] MEDS ORDERED: D5NSS + 20MEQ KCL 20 MEQ/1,000 ML BAG IV SCH (09:00)
--- NOTE | 2019-01-15 09:01 | Hospitalist Progress Note ---
Date of Service January 15, 2019 Assessment & Plan (1) Altered mental status: Head CT negative. Initially suspected delirium / metabolic encephalopathy secondary to hyponatremia and other factors. Persistent confusion despite improvement of hyponatremia. Avoid anticholinergic meds when possible- stopped tiotropium, ipratropium, levofloxacin. 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 (2) Encephalitis: Febrile illness with altered mental status. 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 Started acyclovir 10 mg / kg q 8 hrs on 01/14. Today is day # 2. EEG INTERPRETATION: "This is an abnormal EEG in a patient with altered mentation due to 1. Single right temporal epileptiform discharge suggestive of an underlying predisposition for seizures from this area, 2. Focal slowing in the right temporal head region suggestive of an underlying structural abnormality, 3. Diffuse background slowing suggestive of a non specific encephalopathy. " Neuro checks. Needs LP. Last dose of enoxaparin was evening of 01/13. Last dose of ASA was morning of 01/13. LP ordered under fluoroscopic guidance. In addition to routine studies, will order PCR's for HSV 1-2 PCR, HZV, CMV, EBV, Lyme + cryptococcal Ag. CSF paraneoplastic panel is a reference lab study and extremely expensive. Requires 2 ml CSF. Radiology asked to obtain at least 12 ml CSF. HSV PCR should be reported within a few days and no point in wasting resources doing unnecessary testing if study is diagnostic. Will not order paraneoplastic panel at this time, but lab was asked to hold remaining CSF in case initial studies nondiagnostic and additional studies are needed. ID and Neuro consulted. Continue empiric IV acyclovir. (3) Abnormal EEG: EEG INTERPRETATION: "This is an abnormal EEG in a patient with altered mentation due to 1. Single right temporal epileptiform discharge suggestive of an underlying predisposition for seizures from this area, 2. Focal slowing in the right temporal head region suggestive of an underlying structural abnormality, 3. Diffuse background slowing suggestive of a non specific encephalopathy. " No clinically overt seizure activity. Levetiracetam 750 mg BID recommended by Neurology and initiated. (4) Hyponatremia: Serum sodium 125 at time of admission. Nephrology consulted. Urine Osm 566. 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 1200 ml fluid restriction + furosemide 20 mg BID recommended. Serum sodium today = 130. Takes bupropion, venlafaxine, and trazodone - all associated with hyponatremia. May need to make adjustments if serum sodium does not improve. Follow. (5) COPD (chronic obstructive pulmonary disease): Changed nebs to levalbuterol. Stopped prednisone because of delirium + suspected WASHERY BOSS infection. (6) Pneumonia: Congested cough. Temp as high as 39.3. No infiltrates seen on initial CXR. Sputum ordered for gram stain, C&S; no specimen produced thus far. Blood cultures were done 01/11 - negative so far. Was receiving azithromycin 250 mg TIW for COPD + levofloxacin. Levofloxacin may have been contributing to confusion- stopped. Changed antibiotic therapy to doxycycline + piperacillin / tazobactam for broader coverage pending culture results. CXR 01/14 - emphysematous changes, possible infiltrate left base. At risk for aspiration. Continue doxy + pip / tazo for possible pneumonia - healthcare acquired vs aspiration. (7) Nocturnal hypoxia: Continue supplemental O2. (8) Squamous cell carcinoma lung: Biopsy of endobronchial lesion 01/04/[address] Bowers. Path consistent with squamous cell Ca. Scheduled for PET scan 01/16- will need to be rescheduled. Scheduled for outpt MRI brain for staging. MRI performed 01/13 - no apparent mets. Outpatient follow-up with Dr. Bowers. (9) GERD (gastroesophageal reflux disease): Continue PPI. (10) Hypokalemia: Serum K 3.5 on admission and fell as low as 3.0. Receiving replacement. K today = 3.4. Follow. (11) Distal radius fracture, right: Nondisplaced fracture distal radius. Seen in consultation by Ortho. Nonsurgical management / splinting recommended. Continue calcium supplementation. Vitamin D level = 44. (12) Depression: History of anxiety and depression. Usually takes bupropion, buspirone, lorazepam, venlafaxine, trazodone PRN. Best to hold lorazepam due to confusion (unless pt taking it on regular basis). Bupropion, venlafaxine, and trazodone all associated with hyponatremia. May need to make adjustments if serum sodium does not improve. (13) DVT prophylaxis: Increased risk for VTE due to malignancy, age, and other factors. Received SQ enoxaparin, but need to hold for LP. Resume prophlactic anticoagulants 24 hours after LP. SCD's. Ambulate. (14) Discharge planning issues: Remains acutely ill. Discharge plans to be determined. May need skilled care. Case Management following. Internal Medicine follow-up with Dr. Kenzie Feliciano. Thoracic Medicine follow-up with Dr. Bowers. Orthopedics follow-up with Dr. Jaffe 4 weeks after discharge. Subjective Recheck for multiple problems. Patient seen in their room around 0830. More lethargic this morning. No other concerns last night per nursing staff. Tmax = 37.6. Review of Systems: Unable to obtain due to mental status. Physical Exam Constitutional: no acute distress Respiratory: no respiratory distress Auscultation: + rhonchi (scattered) and + wheezes (diffuse) Cardiovascular: Rate/Rhythm: regular rate and regular rhythm Vessels: no JVD Extremities: + calf tenderness; no edema Gastrointestinal (Abdomen): normal bowel sounds, soft, nontender, no hepatosplenomegaly Musculoskeletal: Spine: normal cervical ROM (supple) Skin: no rashes, warm and dry Neurologic: + obtunded; no meningeal signs Psychiatric: Orientation: + not alert (somnolent) Results & Data Vital Signs (Past 12 Hours) Vital Signs Temp Pulse Pulse Resp BP BP Pulse Ox 01/15/19 08:19 37.3 C 89 22 152/72 H 95 01/15/19 07:01 85 18 92 01/15/19 03:49 37 C 89 22 135/67 94 01/15/19 02:00 99 H 16 93 01/14/19 23:51 37.4 C 94 H 22 148/69 H 94 01/14/19 23:00 94 H Laboratory Results Laboratory Results - last 24 hr 01/15/19 01/15/19 05:12 05:12 WBC 13.56 H RBC 3.87 L Hgb 12.1 Hct 34.7 L MCV 89.7 MCH 31.3 MCHC 34.9 RDW Std Deviation 47.3 H RDW Coeff of Yamini 14.5 Plt Count 261 MPV 8.0 Sodium 130 L Potassium 3.4 L Chloride 96 L Carbon Dioxide 27 Anion Gap 7.0 BUN 12 Creatinine 0.67 Est Cr Clr Drug Dosing 59.1 Est GFR ( Amer) 101.1 Est GFR (Non-Af Amer) 87.2 BUN/Creatinine Ratio 18.4 Glucose 85 Calcium 8.4 L Microbiology 01/11/19 09:15 Blood Blood Culture - Preliminary No growth to date. 01/11/19 09:07 Blood Blood Culture - Preliminary No growth to date.
[2019-01-15] MEDS: PIPERACILLIN/TAZOBACTAM 3.375 GM in DEXTROSE 5% 100 ML IV SCH ×3 (09:29→23:45)
[2019-01-15] MEDS: TAMSULOSIN HCL 0.4 MG CAP PO SCH (09:30)
[2019-01-15] MEDS: SODIUM CHLORIDE 1 GM TABLET PO SCH ×3 (09:30→20:10)
[2019-01-15] MEDS: POTASSIUM CHLORIDE 20 MEQ TABCR PO SCH (09:30)
[2019-01-15] MEDS: THIAMINE HCL 100 MG in SYRINGE 9 ML IV SCH (09:30)
[2019-01-15] MEDS: ASCORBIC ACID 500 MG TAB PO SCH (09:31)
[2019-01-15] MEDS: guaiFENesin 600 MG TABCR PO SCH ×2 (09:31→20:09)
[2019-01-15] MEDS: DOCUSATE SODIUM 100 MG CAP PO SCH ×2 (09:31→20:08)
[2019-01-15] MEDS: BuPROPion SR 100 MG TABCR PO SCH ×2 (09:31→20:08)
[2019-01-15] MEDS: PANTOprazole 40 MG TAB PO SCH (09:31)
[2019-01-15] MEDS: VENLAFAXINE HCL XR 150 MG CAPXR PO SCH (09:31)
[2019-01-15] MEDS: CYANOCOBALAMIN 500 MCG TABLET (VITAMIN B-12) PO SCH (09:31)
[2019-01-15] MEDS: DOXYCYCLINE HYCLATE 100 MG CAP PO SCH ×2 (09:32→20:10)
[2019-01-15] MEDS: FUROSEMIDE 20 MG TAB PO SCH ×2 (09:32→17:06)
[2019-01-15] MEDS: levETIRAcetam 250 MG TAB PO SCH (09:54)
[2019-01-15] MEDS: FLUTICASONE/SALMETEROL (ADVAIR) 500/50 INH 14 PUFF INH SCH ×2 (09:55→20:07)
--- NOTE | 2019-01-15 10:19 | Nephrology Progress Note ---
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 Na 130 today. She had a urine sodium of 76 and the urine osmolarity 566 both consistent with SIADH. Likely triggers of ADH release include pain, mu ltiple antidepressants and cancer. recommend: -Start salt tablets 1 g 3 times daily -Continue Po lasix 20mg bid. Monitor input/output -Fluid restriction of 1200ml daily -Monitor Na daily. No need to monitor frequently -No need for IV fluids today, encourage p.o. intake -Case discussed with Dr. Pennington (2) Altered mental status: Likely in setting of suspected encephalitis due to neuro involvement of the cancer versus viral encephalitis. Hyponatremia less likely to be the main etiology given degree of hyponatremia was mild with sodium of 125 on admission and mental status remains same even with improving Na. Patient plan for LP today. Patient also receiving acyclovir per ID and primary team (3) Hypokalemia: Due to renal potassium wasting in setting of Lasix. Increase potassium chloride to 60 mEq daily. Subjective Patient seen in follow-up for hyponatremia and hypokalemia. She is sleepy this morning but was able to answer yes and no questions. Seen with her daughter Donna at the bedside. Sodium is slightly down at 130 today. Review of Systems Review of Systems: Unobtainable due to cognitive status Physical Exam Physical Exam: General exam: Appears comfortable, no acute distress, drowsy HEENT: Not assessed patient keeping eyes closed Neck: No JVD, neck is supple trachea is midline Respiratory system: Clear breath sounds bilaterally. Gastrointestinal: Abdomen is soft, non distended, non tender, bowel sounds are present CVS: Regular rate and rhythm. No murmurs, rubs or gallops Musculoskeletal: No joint or muscle tenderness Extremities: Non tender, no edema, peripheral pulses are present Neuro: Drowsy but arousable, no focal neurological deficits Skin: No rashes Results & Data Vital Signs (Past 12 Hours) Vital Signs Temp Pulse Pulse Resp BP BP Pulse Ox 01/15/19 08:19 37.3 C 89 22 152/72 H 95 01/15/19 07:01 85 18 92 01/15/19 03:49 37 C 89 22 135/67 94 01/15/19 02:00 99 H 16 93 01/14/19 23:51 37.4 C 94 H 22 148/69 H 94 01/14/19 23:00 94 H Laboratory Results Laboratory Results - last 24 hr 01/15/19 01/15/19 05:12 05:12 WBC 13.56 H RBC 3.87 L Hgb 12.1 Hct 34.7 L MCV 89.7 MCH 31.3 MCHC 34.9 RDW Std Deviation 47.3 H RDW Coeff of Yamini 14.5 Plt Count 261 MPV 8.0 Sodium 130 L Potassium 3.4 L Chloride 96 L Carbon Dioxide 27 Anion Gap 7.0 BUN 12 Creatinine 0.67 Est Cr Clr Drug Dosing 59.1 Est GFR ( Amer) 101.1 Est GFR (Non-Af Amer) 87.2 BUN/Creatinine Ratio 18.4 Glucose 85 Calcium 8.4 L
--- NOTE | 2019-01-15 11:31 | Fluoroscopy Report ---
FLUOROSCOPIC GUIDED LUMBAR PUNCTURE CLINICAL HISTORY: Encephalitis. PROCEDURE: The risks, benefits, and alternatives to the procedure is discussed with the patient who v oiced understanding. Written informed consent was obtained from the patient's daughter. The patient w as placed prone on the fluoroscopy table. The lower back was prepped and draped in the usual sterile fashion. 1% lidocaine was used for local anesthesia. A 20-gauge spinal needle was inserted into the L 4-L5 interlaminar space, and approximately 12 cc of clear colorless cerebrospinal fluid was removed. 3 spot images were saved. The patient tolerated the procedure well. There were no immediate complicat ions. The patient was then transported to the medical treatment unit for further observation. Fluoroscopy time: 0.7 minutes IMPRESSION: Fluoroscopic guided lumbar puncture with removal of approximately 12 cc of cerebrospinal fluid. There were no immediate complications. Electronically signed by: Marlon Stewart M.D. 01/15/2019 11:30 AM
[2019-01-15 11:52] LABS: Appearance CSF Clear; CSF Count Tube # 3; CSF Xanthrochromic No xanthochromia; Color CSF Colorless; Red Blood Cell CSF (A) 38 /uL (0-); Red Blood Cell CSF (B) 28 /uL (0-); White Blood Cell CSF (B) 86 /uL (0-5)
[2019-01-15 11:54] LABS: Total Protein CSF 95.1 mg/dl (15-45)
[2019-01-15 11:55] LABS: White Blood Cell CSF (A) 100 /uL (0-5)
--- NOTE | 2019-01-15 14:32 | Infectious Disease Progress Nt ---
Date of Service January 15, 2019 Assessment & Plan (1) Encephalitis: agree with acyclovir LP suggest viral encephalitis. EEG abnormal. will continue to follow. blood cultures negative, await HSV PCR Subjective more lethargic today, post LP. receiving neb on my exam. 100 wbc, 99%lymphocyte, protein elevated, glucose normal. csf with rare wbc and no bacteria. culture pending, blood cultures negative to date. nonverbal on my exam. tmax 37.6.crypto antigen negative. Review of Systems Review of Systems: Unobtainable due to cognitive status Physical Exam Constitutional: well developed, + ill appearing and + lethargic Eyes: PERRL, conjunctivae normal, anicteric sclerae ENMT: Mouth: no lip abnormality, no oropharynx abnormality and no oral mucosal abnormality Neck: normal visual inspection Respiratory: normal respiratory effort, lungs clear to auscultation Cardiovascular: RRR, no murmur, no edema Gastrointestinal (Abdomen): normal bowel sounds, soft, nontender, no hepatosplenomegaly Musculoskeletal: no cyanosis or clubbing, extremities motor strength 5/5 Head/Neck/Chest: neck supple Skin: no rashes, warm and dry Neurologic: normal touch/pain/proprioception and moves all extremities Speech / Cognition: normal speech Psychiatric: Orientation: + not alert Results & Data Vital Signs (Past 12 Hours) Vital Signs Temp Pulse Resp BP BP Pulse Ox 01/15/19 14:19 88 18 96 01/15/19 13:10 96 H 20 122/58 L 95 01/15/19 12:40 94 H 18 132/59 L 95 01/15/19 12:15 83 16 124/66 93 01/15/19 12:00 88 18 114/60 97 01/15/19 11:45 36.9 C 85 18 110/60 97 01/15/19 08:19 37.3 C 89 22 152/72 H 95 01/15/19 07:01 85 18 92 01/15/19 03:49 37 C 89 22 135/67 94 Laboratory Results Microbiology 01/15/19 11:19 Cerebral Spinal Fluid Gram Stain - Final 01/15/19 11:19 Cerebral Spinal Fluid Cryptococcal Antigen - Final 01/11/19 09:15 Blood Blood Culture - Preliminary No growth to date. 01/11/19 09:07 Blood Blood Culture - Preliminary No growth to date.
--- NOTE | 2019-01-15 15:06 | Neurology Progress Note ---
Date of Service January 15, 2019 Assessment & Plan (1) Altered mental status: 1. LP- preformed today- elevated WBC and protein- holding fluid for neoplastic panel 2. Acyclovir 500 mg q8 hours- ID to direct length of treatment 3. ID - for further recommendation 4. medical management per primary team 5. EEG- seizure focus - Keppra started 750 mg BID- which may contribute to current lethargy 6. 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 labs for Lyme PCR, EBV, HSV, and neoplastic panel 8. CSF labs pending Supervising Physician Co-Signing Physician Notes I have seen and discussed above patient with Dr Omar Rodriguez. Patient was seen and examined. Daughter at bedside. Patient lethargic but arouses to voice. Comprehension intact. No focal weakness noted. 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 Recommend to continue Acyclovir for treatment of suspected HSV encephalotits. Will reduce dose of Keppra due to lethargy to 500 mg BID. Continue seizure precautions. Yamilet Domingo is a 73 year old female who presents to the ED with altered mental status. She was recently admitted to [facility] 01/03 through 01/05 for observation after she developed bleeding during an outpatient bronchoscopy. During that bronchoscopy, patient was found to have a left upper lobe lesion however given friability, there was unable to be biopsied at that time. Dr. 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 She was discharged on a long prednisone taper and Levaquin for [address] Bowers was planning a brain MRI and PET scan for staging. She had developing some confusion about 4 days ago which got progressively worse. She also suffered a fall injuring her right wrist. Her labs show sodium 125. She currently is complaining of a headache frontal lobe and back pain which she attributes the bed. denies CP, worsening SOB, abdominal pain, one sided weakness, numbness tingling, N, V, vision changes. She was a smoker but quit 3 months ago. Physical Exam Physical Exam: Gen: lethargic lungs course breath sounds CV RRR unable to cooperate for full exam moves all ext spontaneously and with stimulation neuro: knows hospital is [facility], does not know year and when asked if winter summer spring fall, she keeps repeating seasons. Results & Data Vital Signs (Past 12 Hours) Vital Signs Temp Pulse Resp BP BP Pulse Ox 01/15/19 14:19 88 18 96 01/15/19 13:30 88 18 129/71 98 01/15/19 13:10 96 H 20 122/58 L 95 01/15/19 12:40 94 H 18 132/59 L 95 01/15/19 12:15 83 16 124/66 93 01/15/19 12:00 88 18 114/60 97 01/15/19 11:45 36.9 C 85 18 110/60 97 01/15/19 08:19 37.3 C 89 22 152/72 H 95 01/15/19 07:01 85 18 92 01/15/19 03:49 37 C 89 22 135/67 94 Laboratory Results Abnormal lab results 01/15/19 01/15/19 01/15/19 Range/Units 05:12 05:12 11:19 WBC 13.56 H (4.8-10.8) K/uL RBC 3.87 L (4.2-5.4) M/uL Hct 34.7 L (37-47) % RDW Std Deviation 47.3 H (36.4-46.3) fL Sodium 130 L (136-145) mmol/L Potassium 3.4 L (3.5-5.1) mmol/L Chloride 96 L (98-107) mmol/L Calcium 8.4 L (8.5-10.1) mg/dl CSF WBC (0-5) /uL CSF Total Protein 95.1 H (15-45) mg/dl 01/15/19 Range/Units 11:19 WBC (4.8-10.8) K/uL RBC (4.2-5.4) M/uL Hct (37-47) % RDW Std Deviation (36.4-46.3) fL Sodium (136-145) mmol/L Potassium (3.5-5.1) mmol/L Chloride (98-107) mmol/L Calcium (8.5-10.1) mg/dl CSF WBC 100 H* (0-5) /uL CSF Total Protein (15-45) mg/dl Diagnostic Findings LP-Fluoroscopic guided lumbar puncture with removal of approximately 12 cc of cerebrospinal fluid. There were no immediate complications.
[2019-01-15] MEDS: levETIRAcetam 500 MG TAB PO SCH (20:08)
[2019-01-15] MEDS: MONTELUKAST SODIUM 10 MG TABLET PO SCH (20:09)
[2019-01-15] MEDS: ROSUVASTATIN CALCIUM 20 MG TAB PO SCH (20:10)
[2019-01-16] MEDS: ACYCLOVIR SOD 500 MG in DEXTROSE 5% 100 ML IV SCH ×4 (01:23→19:36)
[2019-01-16] MEDS: LEVALBUTEROL 1.25MG/0.5ML NEB INH SCH ×4 (02:07→19:47)
[2019-01-16 06:52] LABS: BUN Creatinine Ratio 21.4 (10-20); Bilirubin Direct 0.2 mg/dl (0-0.2); Calcium 8.5 mg/dl (8.5-10.1); Creatinine Clr Calc Pharmacy 55.8 ml/min; Est GFR (African American) 97.9; Est GFR (Non-African American) 84.5; Potassium 3.7 mmol/L (3.5-5.1)
[2019-01-16 06:55] LABS: Albumin Globulin Ratio 0.9 (0.9-2); Bilirubin,Total 0.9 mg/dl (0.2-1); Globulin 3.3 gm/dl (2.5-4.0); Total Protein 6.3 gm/dl (6.4-8.2)
[2019-01-16] MEDS: ASCORBIC ACID 500 MG TAB PO SCH (08:10)
[2019-01-16] MEDS: PIPERACILLIN/TAZOBACTAM 3.375 GM in DEXTROSE 5% 100 ML IV SCH ×2 (08:10→15:43)
[2019-01-16] MEDS: levETIRAcetam 500 MG TAB PO SCH ×2 (08:10→20:29)
[2019-01-16] MEDS: FUROSEMIDE 20 MG TAB PO SCH ×2 (08:10→15:44)
[2019-01-16] MEDS: THIAMINE HCL 100 MG in SYRINGE 9 ML IV SCH (08:10)
[2019-01-16] MEDS: DOCUSATE SODIUM 100 MG CAP PO SCH ×2 (08:11→20:28)
[2019-01-16] MEDS: SODIUM CHLORIDE 1 GM TABLET PO SCH ×3 (08:11→20:30)
[2019-01-16] MEDS: DOXYCYCLINE HYCLATE 100 MG CAP PO SCH ×2 (08:11→20:29)
[2019-01-16] MEDS: CYANOCOBALAMIN 500 MCG TABLET (VITAMIN B-12) PO SCH (08:11)
[2019-01-16] MEDS: TAMSULOSIN HCL 0.4 MG CAP PO SCH (08:11)
[2019-01-16] MEDS: POTASSIUM CHLORIDE 20 MEQ TABCR PO SCH (08:11)
[2019-01-16] MEDS: VENLAFAXINE HCL XR 150 MG CAPXR PO SCH (08:12)
[2019-01-16] MEDS: BuPROPion SR 100 MG TABCR PO SCH (08:12)
[2019-01-16] MEDS: guaiFENesin 600 MG TABCR PO SCH ×2 (08:12→20:29)
[2019-01-16] MEDS: PANTOprazole 40 MG TAB PO SCH (08:12)
[2019-01-16] MEDS: FLUTICASONE/SALMETEROL (ADVAIR) 500/50 INH 14 PUFF INH SCH ×2 (08:13→20:28)
--- NOTE | 2019-01-16 10:38 | Hospitalist Progress Note ---
Date of Service January 16, 2019 Assessment & Plan (1) Altered mental status: Head CT negative. Initially suspected delirium / metabolic encephalopathy secondary to hyponatremia and other factors. Persistent confusion despite improvement of hyponatremia. Avoid anticholinergic meds when possible- stopped tiotropium, ipratropium, levofloxacin. 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 Cultures pending (2) Encephalitis: Febrile illness with altered mental status. 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 Started acyclovir 10 mg / kg q 8 hrs on 01/14. Today is day # 2. EEG INTERPRETATION: "This is an abnormal EEG in a patient with altered mentation due to 1. Single right temporal epileptiform discharge suggestive of an underlying predisposition for seizures from this area, 2. Focal slowing in the right temporal head region suggestive of an underlying structural abnormality, 3. Diffuse background slowing suggestive of a non specific encephalopathy. " Neuro checks. Needs LP. Last dose of enoxaparin was evening of 01/13. Last dose of ASA was morning of 01/13. LP ordered under fluoroscopic guidance. In addition to routine studies, will order PCR's for HSV 1-2 PCR, HZV, CMV, EBV, Lyme + cryptococcal Ag. CSF paraneoplastic panel is a reference lab study and extremely expensive. Requires 2 ml CSF. Radiology asked to obtain at least 12 ml CSF. HSV PCR should be reported within a few days and no point in wasting resources doing unnecessary testing if study is diagnostic. Will not order paraneoplastic panel at this time, but lab was asked to hold remaining CSF in case initial studies nondiagnostic and additional studies are needed. ID and Neuro on case. Continue empiric IV acyclovir. (3) Abnormal EEG: EEG INTERPRETATION: "This is an abnormal EEG in a patient with altered mentation due to 1. Single right temporal epileptiform discharge suggestive of an underlying predisposition for seizures from this area, 2. Focal slowing in the right temporal head region suggestive of an underlying structural abnormality, 3. Diffuse background slowing suggestive of a non specific encephalopathy. " No clinically overt seizure activity. Levetiracetam 750 mg BID recommended by Neurology and initiated. (4) Hyponatremia: Serum sodium 125 at time of admission. Nephrology consulted. Urine Osm 566. Probable SIADH secondary to lung Ca and/or COPD and/or [employer] infection. 1200 ml fluid restriction + furosemide 20 mg BID recommended. Serum sodium today = 130. Takes bupropion, venlafaxine, and trazodone - all associated with hyponatremia. May need to make adjustments if serum sodium does not improve. Follow. (5) COPD (chronic obstructive pulmonary disease): Changed nebs to levalbuterol. Stopped prednisone because of delirium + suspected [employer] infection. (6) Pneumonia: Congested cough. Temp as high as 39.3. No infiltrates seen on initial CXR. Sputum ordered for gram stain, C&S; no specimen produced thus far. Blood cultures were done 01/11 - negative so far. Was receiving azithromycin 250 mg TIW for COPD + levofloxacin. Levofloxacin may have been contributing to confusion- stopped. Changed antibiotic therapy to doxycycline + piperacillin / tazobactam for broader coverage pending culture results. CXR 01/14 - emphysematous changes, possible infiltrate left base. At risk for aspiration. Continue doxy + pip / tazo for possible pneumonia - healthcare acquired vs aspiration. (7) Nocturnal hypoxia: Continue supplemental O2. (8) Squamous cell carcinoma lung: Biopsy of endobronchial lesion 01/04/[address] Bowers. Path consistent with squamous cell Ca. Scheduled for PET scan 01/16- will need to be rescheduled. Scheduled for outpt MRI brain for staging. MRI performed 01/13 - no apparent mets. Outpatient follow-up with Dr. Bowers. (9) GERD (gastroesophageal reflux disease): Continue PPI. (10) Hypokalemia: Serum K 3.5 on admission and fell as low as 3.0. Receiving replacement. K today = 3.4. Follow. (11) Distal radius fracture, right: Nondisplaced fracture distal radius. Seen in consultation by Ortho. Nonsurgical management / splinting recommended. Continue calcium supplementation. Vitamin D level = 44. (12) Depression: History of anxiety and depression. Usually takes bupropion, buspirone, lorazepam, venlafaxine, trazodone PRN. Best to hold lorazepam due to confusion (unless pt taking it on regular basis). Bupropion, venlafaxine, and trazodone all associated with hyponatremia. May need to make adjustments if serum sodium does not improve. (13) DVT prophylaxis: Increased risk for VTE due to malignancy, age, and other factors. Received SQ enoxaparin, but need to hold for LP. Resume prophlactic anticoagulants 24 hours after LP. SCD's. Ambulate. (14) Discharge planning issues: Remains acutely ill. Discharge plans to be determined. May need skilled care. Case Management following. Internal Medicine follow-up with Dr. Kenzie Feliciano. Thoracic Medicine follow-up with Dr. Bowers. Orthopedics follow-up with Dr. Jaffe 4 weeks after discharge. Subjective Yamilet Domingo is a 73 year old female who presents to the ED with altered mental status. She was recently admitted to [facility] 01/03 through 01/05 for observation after she developed bleeding during an outpatient bronchoscopy. During that bronchoscopy, patient was found to have a left upper lobe lesion however given friability, there was unable to be biopsied at that time. Dr. 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 She was discharged on a long prednisone taper and Levaquin for [address] Bowers was planning a brain MRI and PET scan for staging. She had developing some confusion about 4 days ago which got progressively worse. She also suffered a fall injuring her right wrist. Her labs show sodium 125. She currently is complaining of a headache frontal lobe and back pain which she attributes the bed. denies CP, worsening SOB, abdominal pain, one sided weakness, numbness tingling, N, V, vision changes. She was a smoker but quit 3 months ago. ROS-No Headache, No Visual Changes, No Nausea, No Vomiting, + Fever, No Chills, No Neck Pain or Stiffness, No Chest Pain, No Palpitations, No SOB, No GROSS, No Cough, No Sputum, No Wheezing, No Abdominal Pain, No Diarrhea, No Hematemesis, No Hemoptysis, No Unexpected Weight Loss, No Flank pain, No Melena, No Hematoch ezia, No Frequency, No Urgency, No Burning, No Hematuria, No Rashes, No Diaphoresis. Appetite is Normal Physical Exam Gen-AAO x 3, NAD, Afebrile since 01/14, Weak, Thin Head-NCAT, EOMI, PERRLA, Anicteric Sclera, No Posterior Pharyngeal Erythema Neck-Supple, No JVD, No Thyromegaly, No Masses, No LAD, No Bruits Lungs-Clear to Auscultation Bilaterally, No Rales, No Rhonchi, No Wheezing, No Crepitus Chest-No S4, +S1, +S2, No S3, No Murmurs, No Rubs, No Gallops, No Ectopy Abdomen-Soft, Bowel Sounds Present, Non Tender, Non Distended, No Hepatomegaly, No Splenomegaly, No Palpable Masses, No Rebound, No Rigidity, No Guarding Musculoskeletal-Full Range of Motion Bilaterally, No CVAT Extremities-No Cyanosis, No Clubbing, No Edema Nuero-Cranial Nerves II-XII grossly intact, Motor WNL, DTRs WNL, Strength WNL, Non Focal Psych-Normal Mood Chayo is a 73 year old female who presents to the ED with altered mental status. She was recently admitted to [facility] 01/03 through 01/05 for observation after she developed bleeding during an outpatient bronchoscopy. During that bronchoscopy, patient was found to have a left upper lobe lesion however given friability, there was unable to be biopsied at that time. Dr. 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 She was discharged on a long prednisone taper and Levaquin for [address] Bowers was planning a brain MRI and PET scan for staging. She had developing some confusion about 4 days ago which got progressively worse. She also suffered a fall injuring her right wrist. Her labs show sodium 125. She currently is complaining of a headache frontal lobe and back pain which she attributes the bed. denies CP, worsening SOB, abdominal pain, one sided weakness, numbness tingling, N, V, vision changes. She was a smoker but quit 3 months ago. Results & Data Vital Signs (Past 12 Hours) Vital Signs Temp Pulse Pulse Resp BP Pulse Ox 01/16/19 07:51 36.9 C 90 18 123/69 93 01/16/19 07:10 86 16 95 01/16/19 04:28 36.4 C L 93 H 17 121/56 L 97 01/16/19 02:07 92 H 16 96 01/16/19 00:47 98 H 01/15/19 23:32 36.9 C 95 H 20 126/67 98 Current Diagnoses Malignant neoplasm of unspecified part of unspecified bronchus or lung (01/11/19) Hypo-osmolality and hyponatremia (01/11/19) Hypokalemia (01/11/19) Major depressive disorder, single episode, unspecified (01/11/19) Anxiety disorder, unspecified (01/11/19) Encephalitis and encephalomyelitis, unspecified (01/11/19) 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) Pneumonia, unspecified organism (01/11/19) Chronic obstructive pulmonary disease, unspecified (01/11/19) Gastro-esophageal reflux disease without esophagitis (01/11/19) Altered mental status, unspecified (01/11/19) Fever, unspecified (01/11/19) Abnormal electroencephalogram [EEG] (01/11/19) Unspecified fracture of the lower end of right radius, initial encounter for closed fracture (01/11/19) Encounter for administrative examinations, unspecified (01/11/19) Allergies No Known Allergies Allergy (Verified 01/11/19 09:15) Height/Weight/Isolation Height 5 ft 2 in Weight 51 kg Chemistry 01/15/19 01/16/19 05:12 05:55 Sodium 130 L 131 L Potassium 3.4 L 3.7 Chloride 96 L 97 L Carbon Dioxide 27 27 Anion Gap 7.0 7.0 BUN 12 15 Creatinine 0.67 0.71 Glucose 85 98 Microbiology 01/15/19 11:19 Cerebral Spinal Fluid Gram Stain - Final 01/15/19 11:19 Cerebral Spinal Fluid CSF Culture - Pending 01/15/19 11:19 Cerebral Spinal Fluid Cryptococcal Antigen - Final 01/15/19 11:19 Cerebral Spinal Fluid Fungal Culture - Pending 01/15/19 11:19 Cerebral Spinal Fluid Acid Fast Bacilli Smear - Pending 01/15/19 11:19 Cerebral Spinal Fluid Acid Fast Bacilli Culture - Pending
--- NOTE | 2019-01-16 14:16 | Infectious Disease Progress Nt ---
Date of Service January 16, 2019 Assessment & Plan (1) Encephalitis: agree with acyclovir LP suggest viral encephalitis. EEG abnormal. will continue to follow. blood cultures negative, await HSV PCR Subjective pt seen in followup, family at bedside. much more awake today. tolerating zosyn and acyclovir. HSV PCR pending. c/o mild headache today but much improved. denies f/c. afebrile overnight. wbc increased to 13 today. blood cultures remain negative, csf culture pending. neoplastic stuides pending as well. no neck pain, no abd pain, no n/v/d. no cp, sob, nasal O2 noted. no cough. Review of Systems Review of Systems: All systems reviewed & are unremarkable except as noted in HPI & below Physical Exam Constitutional: WD/WN, vitals as above well developed, + ill appearing and + lethargic Eyes: PERRL, conjunctivae normal, anicteric sclerae ENMT: Mouth: no lip abnormality, no oropharynx abnormality and no oral mucosal abnormality Neck: normal visual inspection Respiratory: normal respiratory effort, lungs clear to auscultation Cardiovascular: RRR, no murmur, no edema Gastrointestinal (Abdomen): normal bowel sounds, soft, nontender, no hepatosplenomegaly Musculoskeletal: no cyanosis or clubbing, extremities motor strength 5/5 H ead/Neck/Chest: neck supple Skin: no rashes, warm and dry Neurologic: normal touch/pain/proprioception and moves all extremities Speech / Cognition: normal speech Psychiatric: A+Ox3, euthymic affect Orientation: + not alert Speech: normal rate/rhythm/volume of speech Results & Data Vital Signs (Past 12 Hours) Vital Signs Temp Pulse Resp BP Pulse Ox 01/16/19 14:09 90 18 91 01/16/19 11:13 36.6 C 103 H 16 116/67 90 01/16/19 07:51 36.9 C 90 18 123/69 93 01/16/19 07:10 86 16 95 01/16/19 04:28 36.4 C L 93 H 17 121/56 L 97 Laboratory Results Microbiology 01/15/19 11:19 Cerebral Spinal Fluid Gram Stain - Final 01/15/19 11:19 Cerebral Spinal Fluid CSF Culture - Preliminary No growth to date. 01/15/19 11:19 Cerebral Spinal Fluid Cryptococcal Antigen - Final 01/11/19 09:15 Blood Blood Culture - Preliminary No growth to date. 01/11/19 09:07 Blood Blood Culture - Preliminary No growth to date.
--- NOTE | 2019-01-16 14:23 | Neurology Progress Note ---
Date of Service January 16, 2019 Assessment & Plan (1) Altered mental status: 1. LP- preformed today- elevated WBC and protein- holding fluid for neoplastic panel 2. Acyclovir 500 mg q8 hours- ID to direct length of treatment 3. ID - for further recommendation 4. medical management per primary team 5. EEG- seizure focus - Keppra started 750 mg BID- which may contribute to current lethargy-decreased to 500 mg BID is tolerating better 6. 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 labs for Lyme PCR, EBV, HSV, and neoplastic panel 8. CSF labs pending Supervising Physician Co-Signing Physician Notes I have seen and discussed above patient with Dr Mickey Rodriguez Patient was seen and examined. Patient asleep. Daughter at bedside. PAtient arouses to sternal rub but falls back to sleep immediately. Intermittently voicing some wods but does not stay awake to follow commands. - Continue acyclovir for presumed HSVE - Continue Keppra for seizure prophylaxis. Cont. Seizure precautions - Recommend we obtain a CT head due to increased lethargy to rule out hemorrhage as HSV encephalitis can convert to necrotizing hemorrhagic lesions. although I suspect lethargy may be due to starting Keppra Will continue to follow. Yamilet Domingo is a 73 year old female who presents to the ED with altered mental status. She was recently admitted to [facility] 01/03 through 01/05 for observation after she developed bleeding during an outpatient bronchoscopy. During that bronchoscopy, patient was found to have a left upper lobe lesion however given friability, there was unable to be biopsied at that time. Dr. 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 She was discharged on a long prednisone taper and Levaquin for [address] Bowers was planning a brain MRI and PET scan for staging. She had developing some confusion about 4 days ago which got progressively worse. She also suffered a fall injuring her right wrist. Her labs show sodium 125. today her friend is bedside and states she thinks Chayo is doing better today. she is more alert. denies CP, worsening SOB, abdominal pain, one sided weakness, numbness tingling, N, V, vision changes. She was a smoker but quit 3 months ago. Physical Exam Physical Exam: Gen: alert NAD lungs course breath sound on 2 L NC CV RRR follows commands, knows she is at [facility] and know the name of her friend. moves all ext with command generalize weakness. wrist splint on right Results & Data Vital Signs (Past 12 Hours) Vital Signs Temp Pulse Resp BP Pulse Ox 01/16/19 14:09 90 18 91 01/16/19 11:13 36.6 C 103 H 16 116/67 90 01/16/19 07:51 36.9 C 90 18 123/69 93 01/16/19 07:10 86 16 95 01/16/19 04:28 36.4 C L 93 H 17 121/56 L 97 Laboratory Results Abnormal lab results 01/16/19 Range/Units 05:55 Sodium 131 L (136-145) mmol/L Chloride 97 L (98-107) mmol/L BUN/Creatinine Ratio 21.4 H (10-20) Total Protein 6.3 L (6.4-8.2) gm/dl Albumin 3.0 L (3.4-5.0) gm/dl Diagnostic Findings no new imaging
[2019-01-16] MEDS: ACETAMINOPHEN 325 MG TAB PO PRN (15:48)
--- NOTE | 2019-01-16 19:47 | Nephrology Progress Note ---
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 Na 131 today. She had a urine sodium of 76 and the urine osmolarity 566 both consistent with SIADH. Likely triggers of ADH release include pain, infec tion multiple antidepressants and cancer. recommend: -Continue salt tablets 1 g 3 times daily -Continue Po lasix 20mg bid. Monitor input/output -Fluid restriction of 1200ml daily -Monitor Na daily. No need to monitor frequently -No need for IV fluids today, encourage p.o. intake (2) Altered mental status: Likely in setting of viral encephalitis given CSF results. Hyponatremia less likely to be the main etiology given degree of hyponatremia was mild with sodium of 125 on admission and mental status remains same even with improving Na. Patient on acyclovir per ID and primary team (3) Hypokalemia: Due to renal potassium wasting in setting of Lasix. K 3.7 today. Continue potassium chloride to 60 mEq daily. Subjective Seen in f/u this morning in rounds. She feels better and was sitting up in chair. She is not confused today. No SOB. Review of Systems Review of Systems: All systems reviewed & are unremarkable except as noted in HPI & below Physical Exam Physical Exam: General exam: Appears comfortable, no acute distress HEENT: Pupils are equal and reactive to light Neck: No JVD, neck is supple trachea is midline Respiratory system: Clear breath sounds bilaterally. Gastrointestinal: Abdomen is soft, non distended, non tender, bowel sounds are present CVS: Regular rate and rhythm. No murmurs, rubs or gallops Musculoskeletal: No joint or muscle tenderness Extremities: Non tender, no edema, peripheral pulses are present Neuro: Oriented, no tremors, no focal neurological deficits Skin: No rashes Results & Data Vital Signs (Past 12 Hours) Vital Signs Temp Pulse Resp BP BP Pulse Ox 01/16/19 19:06 36.4 C L 82 16 112/70 96 01/16/19 15:20 36.8 C 103 H 16 103/65 93 01/16/19 14:09 90 18 91 01/16/19 13:40 90 01/16/19 11:13 36.6 C 103 H 16 116/67 90 01/16/19 07:51 36.9 C 90 18 123/69 93 Laboratory Results Laboratory Results - last 24 hr 01/16/19 05:55 Sodium 131 L Potassium 3.7 Chloride 97 L Carbon Dioxide 27 Anion Gap 7.0 BUN 15 Creatinine 0.71 Est Cr Clr Drug Dosing 55.8 Est GFR ( Amer) 97.9 Est GFR (Non-Af Amer) 84.5 BUN/Creatinine Ratio 21.4 H Glucose 98 Calcium 8.5 Total Bilirubin 0.9 Direct Bilirubin 0.2 AST 17 ALT 22 Alkaline Phosphatase 52 Total Protein 6.3 L Albumin 3.0 L Globulin 3.3 Albumin/Globulin Ratio 0.9
[2019-01-16] MEDS: ROSUVASTATIN CALCIUM 20 MG TAB PO SCH (20:30)
[2019-01-16] MEDS: MONTELUKAST SODIUM 10 MG TABLET PO SCH (20:30)
--- NOTE | 2019-01-16 21:46 | CT Scan Report ---
CT head/brain wo con CLINICAL HISTORY: 73 years-old Female with increased lethargy - ro right temporal hemorrhage. Acutel y altered mental status TECHNIQUE: Multiple axial CT images of the head were obtained without contrast. A dose lowering tech nique was utilized adhering to the principles of ALARA. CT DOSE: 537.48 mGy.cm COMPARISON: MRI brain 01/13/2019, CT head 01/11/2019. FINDINGS: No acute intracranial hemorrhage, midline shift, intracranial mass, hydrocephalus, or abnormal extra- axial collection. There is progressive decreased attenuation about the right temporal lobe. Additiona lly, there is suggestion of decreased attenuation about the inferior aspects of the bilateral frontal lobes. The calvarium is intact. The paranasal sinuses, mastoid air cells, and middle ear cavities are clear . IMPRESSION: 1. No acute intracranial hemorrhage or midline shift. 2. Progressive decreased attenuation about the right temporal lobe with new areas of decreased attenu ation about the inferior bilateral frontal lobes is suggestive of worsening encephalitis. Correlation with clinical history and lumbar puncture results recommended. The above report was generated using voice recognition software. It may contain grammatical, syntax o r spelling errors. Electronically signed by: Marvin Lopez M.D. 01/16/2019 9:45 PM
[2019-01-17] MEDS: PIPERACILLIN/TAZOBACTAM 3.375 GM in DEXTROSE 5% 100 ML IV SCH ×3 (00:17→17:01)
[2019-01-17] MEDS: LEVALBUTEROL 1.25MG/0.5ML NEB INH SCH ×4 (01:41→19:27)
[2019-01-17] MEDS: ACYCLOVIR SOD 500 MG in DEXTROSE 5% 100 ML IV SCH ×3 (04:29→20:39)
[2019-01-17 06:27] LABS: Hematocrit (blood only) 34.8 % (37-47); Hemoglobin 12.1 g/dL (12.0-16.0); Mean Corpuscular Hgb Conc 34.8 g/dL (32-36); Mean Corpuscular Volume 90.6 fL (80-100); Mean Platelet Volume 8.1 fL (7.4-10.4); Platelet Count 280 K/uL (130-400); RDW Standard Deviation 49.7 fL (36.4-46.3); Red Blood Count 3.84 M/uL (4.2-5.4); White Blood Count 11.07 K/uL (4.8-10.8)
[2019-01-17 07:03] LABS: Albumin Level 2.8 gm/dl (3.4-5.0); BUN Creatinine Ratio 24.4 (10-20); Calcium 8.6 mg/dl (8.5-10.1); Creatinine Clr Calc Pharmacy 59.1 ml/min; Est GFR (African American) 101.1; Est GFR (Non-African American) 87.2; Potassium 3.9 mmol/L (3.5-5.1)
[2019-01-17 07:06] LABS: Albumin Globulin Ratio 0.9 (0.9-2); Bilirubin,Total 0.6 mg/dl (0.2-1); Total Protein 5.8 gm/dl (6.4-8.2)
[2019-01-17] MEDS: guaiFENesin 600 MG TABCR PO SCH ×2 (08:10→20:40)
[2019-01-17] MEDS: ASCORBIC ACID 500 MG TAB PO SCH (08:10)
[2019-01-17] MEDS: levETIRAcetam 500 MG TAB PO SCH ×2 (08:10→20:40)
[2019-01-17] MEDS: DOXYCYCLINE HYCLATE 100 MG CAP PO SCH ×2 (08:10→20:40)
[2019-01-17] MEDS: SODIUM CHLORIDE 1 GM TABLET PO SCH ×3 (08:10→20:40)
[2019-01-17] MEDS: BuPROPion SR 100 MG TABCR PO SCH (08:11)
[2019-01-17] MEDS: POTASSIUM CHLORIDE 20 MEQ TABCR PO SCH (08:11)
[2019-01-17] MEDS: VENLAFAXINE HCL XR 150 MG CAPXR PO SCH (08:11)
[2019-01-17] MEDS: FLUTICASONE/SALMETEROL (ADVAIR) 500/50 INH 14 PUFF INH SCH ×2 (08:11→20:39)
[2019-01-17] MEDS: CYANOCOBALAMIN 500 MCG TABLET (VITAMIN B-12) PO SCH (08:11)
[2019-01-17] MEDS: DOCUSATE SODIUM 100 MG CAP PO SCH ×2 (08:11→20:40)
[2019-01-17] MEDS: PANTOprazole 40 MG TAB PO SCH (08:11)
[2019-01-17] MEDS: TAMSULOSIN HCL 0.4 MG CAP PO SCH (08:11)
[2019-01-17] MEDS: FUROSEMIDE 20 MG TAB PO SCH ×2 (08:12→17:02)
[2019-01-17] MEDS: THIAMINE HCL 100 MG in SYRINGE 9 ML IV SCH (08:12)
--- NOTE | 2019-01-17 10:18 | Nephrology Progress Note ---
Date of Service January 17, 2019 Assessment & Plan (1) Hyponatremia: Patient with acute hyponatremia likely due to syndrome of inappropriate ADH. Na 136 today. She had a urine sodium of 76 and the urine osmolarity 566 both consistent with SIADH. Likely triggers of ADH release include pain, infec tion multiple antidepressants and cancer. Patient is now eating better. recommend: -Continue salt tablets 1 g 3 times daily -Continue Po lasix 20mg bid. Monitor input/output -Fluid restriction of 1200ml daily -Monitor Na daily. No need to monitor frequently (2) Altered mental status: Likely in setting of viral encephalitis given CSF results. Mental status has improved with treatment for the infection and improving electrolytes. Patient on acyclovir per ID and primary team (3) Hypokalemia: Due to renal potassium wasting in setting of Lasix. K 3.9 today. Continue potassium chloride to 60 mEq daily. Subjective Patient seen in follow-up for electrolyte imbalance in setting of viral encephalitis. She feels better this morning denying any shortness of breath or confusion. No urinary symptoms. She was sitting up eating breakfast at the time of my visit. Review of Systems Review of Systems: All systems reviewed & are unremarkable except as noted in HPI & below Physical Exam Physical Exam: General exam: Appears comfortable, no acute distress HEENT: Pupils are equal and reactive to light Neck: No JVD, neck is supple trachea is midline Respiratory system: Clear breath sounds bilaterally. Gastrointestinal: Abdomen is soft, non distended, non tender, bowel sounds are present CVS: Regular rate and rhythm. No murmurs, rubs or gallops Musculoskeletal: No joint or muscle tenderness Extremities: Non tender, no edema, peripheral pulses are present Neuro: Oriented, no tremors, no focal neurological deficits Skin: No rashes Results & Data Vital Signs (Past 12 Hours) Vital Signs Temp Pulse Pulse Resp BP Pulse Ox 01/17/19 07:15 96 H 18 96 01/17/19 07:12 36.7 C 94 H 24 121/74 96 01/17/19 03:27 36.7 C 91 H 18 119/69 95 01/17/19 03:05 88 01/17/19 01:43 83 14 91 01/17/19 00:13 36.7 C 86 17 124/66 95 Laboratory Results Laboratory Results - last 24 hr 01/17/19 01/17/19 05:56 05:56 WBC 11.07 H RBC 3.84 L Hgb 12.1 Hct 34.8 L MCV 90.6 MCH 31.5 MCHC 34.8 RDW Std Deviation 49.7 H RDW Coeff of Yamini 15.0 H Plt Count 280 MPV 8.1 Sodium 136 Potassium 3.9 Chloride 103 Carbon Dioxide 26 Anion Gap 7.0 BUN 16 Creatinine 0.67 Est Cr Clr Drug Dosing 59.1 Est GFR ( Amer) 101.1 Est GFR (Non-Af Amer) 87.2 BUN/Creatinine Ratio 24.4 H Glucose 97 Calcium 8.6 Total Bilirubin 0.6 AST 14 L ALT 20 Alkaline Phosphatase 50 Total Protein 5.8 L Albumin 2.8 L Globulin 3.0 Albumin/Globulin Ratio 0.9
--- NOTE | 2019-01-17 10:36 | Hospitalist Progress Note ---
Date of Service January 17, 2019 Assessment & Plan (1) Altered mental status: Head CT negative. Initially suspected delirium / metabolic encephalopathy secondary to hyponatremia and other factors. Persistent confusion despite improvement of hyponatremia. Avoid anticholinergic meds when possible-stopped tiotropium, ipratropium, levofloxacin. 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 Cultures pending (2) Encephalitis: Febrile illness with altered mental status. 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 Started acyclovir 10 mg / kg q 8 hrs on 01/14. Today is day # 2. EEG INTERPRETATION: "This is an abnormal EEG in a patient with altered mentation due to 1. Single right temporal epileptiform discharge suggestive of an underlying predisposition for seizures from this area, 2. Focal slowing in the right temporal head region suggestive of an underlying structural abnormality, 3. Diffuse background slowing suggestive of a non specific encephalopathy. " Neuro checks. Needs LP. Last dose of enoxaparin was evening of 01/13. Last dose of ASA was morning of 01/13. LP ordered under fluoroscopic guidance. In addition to routine studies, will order PCR's for HSV 1-2 PCR, HZV, CMV, EBV, Lyme + cryptococcal Ag. CSF paraneoplastic panel is a reference lab study and extremely expensive. Requires 2 ml CSF. Radiology asked to obtain at least 12 ml CSF. HSV PCR should be reported within a few days and no point in wasting resources doing unnecessary testing if study is diagnostic. Will not order paraneoplastic panel at this time, but lab was asked to hold remaining CSF in case initial studies nondiagnostic and additional studies are needed. ID and Neuro on case. Continue empiric IV acyclovir. (3) Abnormal EEG: EEG INTERPRETATION: "This is an abnormal EEG in a patient with altered mentation due to 1. Single right temporal epileptiform discharge suggestive of an underlying predisposition for seizures from this area, 2. Focal slowing in the right temporal head region suggestive of an underlying structural abnormality, 3. Diffuse background slowing suggestive of a non specific encephalopathy. " No clinically overt seizure activity. Levetiracetam 750 mg BID recommended by Neurology and initiated. (4) Hyponatremia: Serum sodium 125 at time of admission. Nephrology consulted. Urine Osm 566. Probable SIADH secondary to lung Ca and/or COPD and/or FACILITY ATTENDANT infection. 1200 ml fluid restriction + furosemide 20 mg BID recommended. Serum sodium today = 136 Takes bupropion, venlafaxine, and trazodone - all associated with hyponatremia. May need to make adjustments if serum sodium does not improve. Follow. (5) COPD (chronic obstructive pulmonary disease): Changed nebs to levalbuterol. Stopped prednisone because of delirium + suspected FACILITY ATTENDANT infection. (6) Pneumonia: Congested cough. Temp as high as 39.3. No infiltrates seen on initial CXR. Sputum ordered for gram stain, C&S; no specimen produced thus far. Blood cultures were done 01/11 - negative so far. Was receiving azithromycin 250 mg TIW for COPD + levofloxacin. Levofloxacin may have been contributing to confusion- stopped. Changed antibiotic therapy to doxycycline + piperacillin / tazobactam for broader coverage pending culture results. CXR 01/14 - emphysematous changes, possible infiltrate left base. At risk for aspiration. Continue doxy + pip / tazo for possible pneumonia - healthcare acquired vs aspiration. (7) Nocturnal hypoxia: Continue supplemental O2. (8) Squamous cell carcinoma lung: Biopsy of endobronchial lesion 01/04/[address] Bowers. Path consistent with squamous cell Ca. Scheduled for PET scan 01/16- will need to be rescheduled. Scheduled for outpt MRI brain for staging. MRI performed 01/13 - no apparent mets. Outpatient follow-up with Dr. Bowers. (9) GERD (gastroesophageal reflux disease): Continue PPI. (10) Hypokalemia: Serum K 3.5 on admission and fell as low as 3.0. Receiving replacement. K today = 3.4. Follow. (11) Distal radius fracture, right: Nondisplaced fracture distal radius. Seen in consultation by Ortho. Nonsurgical management / splinting recommended. Continue calcium supplementation. Vitamin D level = 44. (12) Depression: History of anxiety and depression. Usually takes bupropion, buspirone, lorazepam, venlafaxine, trazodone PRN. Best to hold lorazepam due to confusion (unless pt taking it on regular basis). Bupropion, venlafaxine, and trazodone all associated with hyponatremia. May need to make adjustments if serum sodium does not improve. (13) DVT prophylaxis: Increased risk for VTE due to malignancy, age, and other factors. Received SQ enoxaparin, but need to hold for LP. Resume prophlactic anticoagulants 24 hours after LP. SCD's. Ambulate. (14) Discharge planning issues: Remains acutely ill. Discharge plans to be determined. May need skilled care. Case Management following. Internal Medicine follow-up with Dr. Kenzie Feliciano. Thoracic Medicine follow-up with Dr. Bowers. Orthopedics follow-up with Dr. Jaffe 4 weeks after discharge. Subjective 73 year old female who presents to the ED with altered mental status. She was recently admitted to [facility] 01/03 through 01/05 for observation after she developed bleeding during an outpatient bronchoscopy. During that bronchoscopy, patient was found to have a left upper lobe lesion however given friability, there was unable to be biopsied at that time. Dr. 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 She was discharged on a long prednisone taper and Levaquin for [address] Bowers was planning a brain MRI and PET scan for staging. She had developing some confusion about 4 days ago which got progressively worse. She also suffered a fall injuring her right wrist. Her labs show sodium 125. She was complaining of a headache frontal lobe and back pain which she attributes the bed. denies CP, worsening SOB, abdominal pain, one sided weakness, numbness tingling, N, V, vision changes. She was a smoker but quit 3 months ago. No LAFLEUR or fever today ROS-No Headache, No Visual Changes, No Nausea, No Vomiting, + Fever, No Chills, No Neck Pain or Stiffness, No Chest Pain, No Palpitations, No SOB, No GROSS, No Cough, No Sputum, No Wheezing, No Abdominal Pain, No Diarrhea, No Hematemesis, No Hemoptysis, No Unexpected Weight Loss, No Flank pain, No Melena, No Hematochezia, No Frequency, No Urgency, No Burning, No Hematuria, No Rashes, No Diaphoresis. Appetite is Normal Physical Exam Gen-AAO x 3, NAD, Afebrile since 01/14, Weak, Thin, tremor Head-NCAT, EOMI, PERRLA, Anicteric Sclera, No Posterior Pharyngeal Erythema Neck-Supple, No JVD, No Thyromegaly, No Masses, No LAD, No Bruits Lungs-Clear to Auscultation Bilaterally, No Rales, No Rhonchi, No Wheezing, No Crepitus Chest-No S4, +S1, +S2, No S3, No Murmurs, No Rubs, No Gallops, No Ectopy Abdomen-Soft, Bowel Sounds Present, Non Tender, Non Distended, No Hepatomegaly, No Splenomegaly, No Palpable Masses, No Rebound, No Rigidity, No Guarding Musculoskeletal-Full Range of Motion Bilaterally, No CVAT Extremities-No Cyanosis, No Clubbing, No Edema Nuero-Cranial Nerves II-XII grossly intact, Motor WNL, DTRs WNL, Strength WNL, Non Focal Psych-Normal Mood Results & Data Vital Signs (Past 12 Hours) Vital Signs Temp Pulse Pulse Resp BP Pulse Ox 01/17/19 07:15 96 H 18 96 01/17/19 07:12 36.7 C 94 H 24 121/74 96 01/17/19 03:27 36.7 C 91 H 18 119/69 95 01/17/19 03:05 88 01/17/19 01:43 83 14 91 01/17/19 00:13 36.7 C 86 17 124/66 95 Current Diagnoses Malignant neoplasm of unspecified part of unspecified bronchus or lung (01/11/19) Hypo-osmolality and hyponatremia (01/11/19) Hypokalemia (01/11/19) Major depressive disorder, single episode, unspecified (01/11/19) Anxiety disorder, unspecified (01/11/19) Encephalitis and encephalomyelitis, unspecified (01/11/19) 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) Pneumonia, unspecified organism (01/11/19) Chronic obstructive pulmonary disease, unspecified (01/11/19) Gastro-esophageal reflux disease without esophagitis (01/11/19) Altered mental status, unspecified (01/11/19) Fever, unspecified (01/11/19) Abnormal electroencephalogram [EEG] (01/11/19) Unspecified fracture of the lower end of right radius, initial encounter for closed fracture (01/11/19) Encounter for administrative examinations, unspecified (01/11/19) Allergies No Known Allergies Allergy (Verified 01/11/19 09:15) Height/Weight/Isolation Height 5 ft 2 in Weight 51 kg Chemistry 01/16/19 01/17/19 05:55 05:56 Sodium 131 L 136 Potassium 3.7 3.9 Chloride 97 L 103 Carbon Dioxide 27 26 Anion Gap 7.0 7.0 BUN 15 16 Creatinine 0.71 0.67 Glucose 98 97 Microbiology 01/15/19 11:19 Cerebral Spinal Fluid Acid Fast Bacilli Smear - Final 01/15/19 11:19 Cerebral Spinal Fluid Acid Fast Bacilli Culture - Pending 01/15/19 11:19 Cerebral Spinal Fluid Gram Stain - Final 01/15/19 11:19 Cerebral Spinal Fluid CSF Culture - Final No growth 01/11/19 09:15 Blood Blood Culture - Final No growth 01/11/19 09:07 Blood Blood Culture - Final No growth 01/15/19 11:19 Cerebral Spinal Fluid Cryptococcal Antigen - Final 01/15/19 11:19 Cerebral Spinal Fluid Fungal Culture - Pending
[2019-01-17] MEDS ORDERED: CETIRIZINE HCL 10 MG TABLET PO PRN (12:03)
--- NOTE | 2019-01-17 13:41 | Neurology Progress Note ---
Date of Service January 17, 2019 Assessment & Plan (1) Altered mental status: 1. LP- preformed - elevated WBC and protein- holding fluid for neoplastic panel- pending labs 2. Acyclovir 500 mg q8 hours- ID to direct length of treatment 3. ID - for further recommendation 4. medical management per primary team 5. EEG- seizure focus - Keppra started 750 mg BID- which may contribute to current lethargy-decreased to 500 mg BID is tolerating better 6. 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 labs for Lyme PCR, EBV, HSV, and neoplastic panel 8. CSF labs pending 9. PT/OT for discharge needs 10. care mgt for facilitating transfer to [facility] prior to return to her apartment 11. bone scan done as out patient Supervising Physician Co-Signing Physician Notes I have seen and discussed above patient with Dr Omar Rodriguez. Patient was seen and examined. Daughter at bedside. Patient awake and alert in chair. Reports feeling better. Daughter noted patient is also much more alert. HSV PCR pending. CT head negative for hemorrhagic conversion. Agree with continuing Acyclovir for presumed HSE. Continue Keppra 500 mg BID for seizure prophylaxis. Nephrology following for SiADH. Na improving. Yamilet Domingo is a 73 year old female who presents to the ED with altered mental status. She was recently admitted to [facility] 01/03 through 01/05 for observation after she developed bleeding during an outpatient bronchoscopy. During that bronchoscopy, patient was found to have a left upper lobe lesion however given friability, there was unable to be biopsied at that time. Dr. 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 She was discharged on a long prednisone taper and Levaquin for [address] Bowers was planning a brain MRI and PET scan for staging. She had developing some confusion about 4 days ago which got progressively worse. She also suffered a fall injuring her right wrist. Her labs show sodium 125. Her family contact is bedside today and states she thinks she is doing better today. She was sleeping when entering the room but awake and oriented during exam. she is anxious to get discharged. denies CP, worsening SOB, abdominal pain, one sided weakness, numbness tingling, N, V, vision changes. She was a smoker but quit 3 months ago. Physical Exam Physical Exam: Gen: alert NAD lungs course breath sounds CV RRR neuro: knows [facility], 2019, month January, friends name strength generalize weakness smile eye brow raise symmetric. Results & Data Vital Signs (Past 12 Hours) Vital Signs Temp Pulse Pulse Resp BP BP Pulse Ox 01/17/19 12:00 36.8 C 108 H 16 107/57 L 90 01/17/19 07:15 96 H 18 96 01/17/19 07:12 36.7 C 94 H 24 121/74 96 01/17/19 03:27 36.7 C 91 H 18 119/69 95 01/17/19 03:05 88 01/17/19 01:43 83 14 91 Laboratory Results Abnormal lab results 01/17/19 01/17/19 Range/Units 05:56 05:56 WBC 11.07 H (4.8-10.8) K/uL RBC 3.84 L (4.2-5.4) M/uL Hct 34.8 L (37-47) % RDW Std Deviation 49.7 H (36.4-46.3) fL RDW Coeff of Yamini 15.0 H (11.5-14.5) % BUN/Creatinine Ratio 24.4 H (10-20) AST 14 L (15-37) U/L Total Protein 5.8 L (6.4-8.2) gm/dl Albumin 2.8 L (3.4-5.0) gm/dl Diagnostic Findings CT brain- No acute intracranial hemorrhage or midline shift. Progressive decreased attenuation about the right temporal lobe with new areas of decreased attenuation about the inferior bilateral frontal lobes is suggestive of worsening encephalitis. Correlation with clinical history and lumbar puncture results recommended.
--- NOTE | 2019-01-17 14:29 | Infectious Disease Progress Nt ---
Date of Service January 17, 2019 Assessment & Plan (1) Encephalitis: agree with acyclovir LP suggest viral encephalitis. will continue to follow. blood cultures negative, await HSV PCR, csf culture negative and final. Subjective continues on emperic acyclovir for suspect HSV encephalitis, pcr pending. blood and csf cultures remain negative, csf final. pathology negative for malignancy. afebrile today. wbc 11. Results & Data Vital Signs (Past 12 Hours) Vital Signs Temp Pulse Pulse Resp BP BP Pulse Ox 01/17/19 14:25 114 H 18 90 01/17/19 12:00 36.8 C 108 H 16 107/57 L 90 01/17/19 07:15 96 H 18 96 01/17/19 07:12 36.7 C 94 H 24 121/74 96 01/17/19 03:27 36.7 C 91 H 18 119/69 95 01/17/19 03:05 88 Laboratory Results Microbiology 01/15/19 11:19 Cerebral Spinal Fluid Acid Fast Bacilli Smear - Final 01/15/19 11:19 Cerebral Spinal Fluid Gram Stain - Final 01/15/19 11:19 Cerebral Spinal Fluid CSF Culture - Final No growth 01/11/19 09:15 Blood Blood Culture - Final No growth 01/11/19 09:07 Blood Blood Culture - Final No growth 01/15/19 11:19 Cerebral Spinal Fluid Cryptococcal Antigen - Final
[2019-01-17 20:40] LABS: CMV DNA Qnt Real Time PCR <200 IU/mL (<200); CMV DNA Quant PCR <2.30 log IU/mL (<2.30); EBV DNA Quant PCR 1125 copies/mL (<200); EBV DNA Quant Source CSF; HSV Type 1 DNA Detected (Not Detected); HSV Type 1&2 DNA Source CSF; HSV Type 2 DNA Not Detected (Not Detected); Lyme DNA Source CSF; VZ DNA Source CSF
[2019-01-17] MEDS: MONTELUKAST SODIUM 10 MG TABLET PO SCH (20:40)
[2019-01-17] MEDS: ROSUVASTATIN CALCIUM 20 MG TAB PO SCH (20:40)
[2019-01-18] MEDS: PIPERACILLIN/TAZOBACTAM 3.375 GM in DEXTROSE 5% 100 ML IV SCH ×2 (00:37→08:06)
[2019-01-18] MEDS: ACYCLOVIR SOD 500 MG in DEXTROSE 5% 100 ML IV SCH ×3 (05:32→21:48)
[2019-01-18] MEDS: LEVALBUTEROL 1.25MG/0.5ML NEB INH SCH ×4 (06:53→19:07)
[2019-01-18 07:11] LABS: Basophils # (auto) 0.01 K/uL (0-0.2); Basophils % (auto) 0.1 %; Eosinophils # (auto) 0.23 K/uL (0-0.5); Eosinophils % (auto) 1.9 %; Hematocrit (blood only) 33.7 % (37-47); Hemoglobin 11.5 g/dL (12.0-16.0); Immature Granulocytes # (auto) 0.05 K/uL (0.00-0.02); Immature Granulocytes % (auto) 0.4 %; Lymphocytes # (auto) 1.05 K/uL (1.2-3.4); Lymphocytes % (auto) 8.6 %; Mean Corpuscular Hgb Conc 34.1 g/dL (32-36); Mean Corpuscular Volume 91.1 fL (80-100); Monocytes # (auto) 1.02 K/uL (0.11-0.59); Monocytes % (auto) 8.4 %; Neutrophils # (auto) 9.83 K/uL (1.4-6.5); Neutrophils % (auto) 80.6 %; Platelet Count 296 K/uL (130-400); RDW Coefficient of Variation 15.1 % (11.5-14.5); RDW Standard Deviation 50.3 fL (36.4-46.3); White Blood Count 12.19 K/uL (4.8-10.8)
[2019-01-18 07:49] LABS: BUN Creatinine Ratio 23.3 (10-20); Calcium 8.8 mg/dl (8.5-10.1); Creatinine Clr Calc Pharmacy 52.8 ml/min; Est GFR (African American) 91.7; Est GFR (Non-African American) 79.1; Potassium 3.6 mmol/L (3.5-5.1)
[2019-01-18] MEDS: VENLAFAXINE HCL XR 150 MG CAPXR PO SCH (08:07)
[2019-01-18] MEDS: SODIUM CHLORIDE 1 GM TABLET PO SCH ×3 (08:07→21:49)
[2019-01-18] MEDS: levETIRAcetam 500 MG TAB PO SCH ×2 (08:07→21:49)
[2019-01-18] MEDS: FLUTICASONE/SALMETEROL (ADVAIR) 500/50 INH 14 PUFF INH SCH ×2 (08:07→21:48)
[2019-01-18] MEDS: CYANOCOBALAMIN 500 MCG TABLET (VITAMIN B-12) PO SCH (08:07)
[2019-01-18] MEDS: THIAMINE HCL 100 MG in SYRINGE 9 ML IV SCH (08:07)
[2019-01-18] MEDS: DOXYCYCLINE HYCLATE 100 MG CAP PO SCH ×2 (08:07→21:49)
[2019-01-18] MEDS: PANTOprazole 40 MG TAB PO SCH (08:07)
[2019-01-18] MEDS: TAMSULOSIN HCL 0.4 MG CAP PO SCH (08:07)
[2019-01-18] MEDS: POTASSIUM CHLORIDE 20 MEQ TABCR PO SCH (08:07)
[2019-01-18] MEDS: guaiFENesin 600 MG TABCR PO SCH ×2 (08:07→21:50)
[2019-01-18] MEDS: FUROSEMIDE 20 MG TAB PO SCH ×2 (08:07→19:10)
[2019-01-18] MEDS: DOCUSATE SODIUM 100 MG CAP PO SCH ×2 (08:07→21:52)
[2019-01-18] MEDS: BuPROPion SR 100 MG TABCR PO SCH (08:07)
--- NOTE | 2019-01-18 10:15 | Nephrology Progress Note ---
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 Na 134 today. She had a urine sodium of 76 and the urine osmolarity 566 both consistent with SIADH. Likely triggers of ADH release include pain, infec tion multiple antidepressants and cancer. Patient is now eating better. She is getting 600ml of D5 from acyclovir and zosyn. recommend: -Consider stopping Zosyn if nolonger needed as patient is felt to have viral encephalitis -Continue salt tablets 1 g 3 times daily -Continue Po lasix 20mg bid. Monitor input/output -Fluid restriction of 1200ml daily -Monitor Na daily. No need to monitor frequently (2) Altered mental status: Likely in setting of viral encephalitis given CSF results. Mental status has improved with treatment for the infection and improving electrolytes. Patient on acyclovir per ID and primary team. Patient is getting 300ml of D5 with acyclovir. If Na continues to drop, will ask pharmacy to mix the acyclovir in normal saline. (3) Hypokalemia: Due to renal potassium wasting in setting of Lasix. K 3.9 today. Continue potassium chloride to 60 mEq daily. Subjective Seen in follow-up for hyponatremia. She feels better denies any headache or shortness of breath. She is sitting up in the chair. Sodium slightly low at 134 today. She is eating and drinking well. She is limiting water intake to less than a liter a day. She is receiving about 600 mL of D5 through medications ( acyclovir and zosyn) Review of Systems Review of Systems: All systems reviewed & are unremarkable except as noted in HPI & below Physical Exam Physical Exam: General exam: Appears comfortable, no acute distress HEENT: Pupils are equal and reactive to light Neck: No JVD, neck is supple trachea is midline Respiratory system: Clear breath sounds bilaterally. Gastrointestinal: Abdomen is soft, non distended, non tender, bowel sounds are present CVS: Regular rate and rhythm. No murmurs, rubs or gallops Musculoskeletal: No joint or muscle tenderness Extremities: Non tender, no edema, peripheral pulses are present Neuro: Oriented, no tremors, no focal neurological deficits Skin: No rashes Results & Data Vital Signs (Past 12 Hours) Vital Signs Temp Pulse Resp BP Pulse Ox 01/18/19 07:32 36.8 C 64 20 121/60 91 01/18/19 07:03 90 16 92 01/18/19 02:09 90 16 94 01/17/19 23:08 36.7 C 99 H 16 122/68 93 Laboratory Results Laboratory Results - last 24 hr 01/15/19 01/18/19 01/18/19 11:19 06:36 06:36 WBC 12.19 H RBC 3.70 L Hgb 11.5 L Hct 33.7 L MCV 91.1 MCH 31.1 MCHC 34.1 RDW Std Deviation 50.3 H RDW Coeff of Yamini 15.1 H Plt Count 296 MPV 8.0 Immature Gran % (Auto) 0.4 Neut % (Auto) 80.6 Lymph % (Auto) 8.6 [place] % (Auto) 8.4 Eos % (Auto) 1.9 Baso % (Auto) 0.1 Immature Gran # (Auto) 0.05 H Neut # (Auto) 9.83 H Lymph # (Auto) 1.05 L [place] # (Auto) 1.02 H Eos # (Auto) 0.23 Baso # (Auto) 0.01 Sodium 134 L Potassium 3.6 Chloride 101 Carbon Dioxide 26 Anion Gap 8.0 BUN 18 Creatinine 0.75 Est Cr Clr Drug Dosing 52.8 Est GFR ( Amer) 91.7 Est GFR (Non-Af Amer) 79.1 BUN/Creatinine Ratio 23.3 H Glucose 111 H Calcium 8.8 Fld Lyme DNA (PCR) Not detected Lyme Specimen Source CSF CMV Specimen Source CSF CMV Qnt PCR IU/mL <200 CMV Qnt PCR log IU/mL <2.30 EBV Source CSF EBV DNA (PCR) 1125 H Herpes Virus Source CSF HSV I DNA PCR Detected A HSV II DNA PCR Not Detected Varicella-Zoster Source CSF VZV DNA (PCR) Not Detected
--- NOTE | 2019-01-18 11:58 | Hospitalist Progress Note ---
Date of Service January 18, 2019 Assessment & Plan (1) Altered mental status: resolved MRI brain suggests HSV encephalitis as discussed below. (2) Encephalitis: Febrile illness with altered mental status. 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 Started acyclovir 10 mg / kg q 8 hrs on 01/14. Today is day # 2. EEG INTERPRETATION: "This is an abnormal EEG in a patient with altered mentation due to 1. Single right temporal epileptiform discharge suggestive of an underlying predisposition for seizures from this area, 2. Focal slowing in the right temporal head region suggestive of an underlying structural abnormality, 3. Diffuse background slowing suggestive of a non specific encephalopathy. " Neuro checks. Needs LP. Last dose of enoxaparin was evening of 01/13. Last dose of ASA was morning of 01/13. LP ordered under fluoroscopic guidance. In addition to routine studies, will order PCR's for HSV 1-2 PCR, HZV, CMV, EBV, Lyme + cryptococcal Ag. CSF paraneoplastic panel is a reference lab study and extremely expensive. Requires 2 ml CSF. Negative Radiology asked to obtain at least 12 ml CSF. HSV PCR should be reported within a few days and no point in wasting resources doing unnecessary testing if study is diagnostic. Continue empiric IV acyclovir. (3) Abnormal EEG: EEG INTERPRETATION: "This is an abnormal EEG in a patient with altered mentation due to 1. Single right temporal epileptiform discharge suggestive of an underlying predisposition for seizures from this area, 2. Focal slowing in the right temporal head region suggestive of an underlying structural abnormality, 3. Diffuse background slowing suggestive of a non specific encephalopathy. " No clinically overt seizure activity. Levetiracetam 500 mg BID recommended by Neurology (4) Hyponatremia: Probable SIADH secondary to lung Ca and/or COPD and/or [employer] infection. 1200 ml fluid restriction + furosemide 20 mg BID recommended. Serum sodium today = 134 (5) COPD (chronic obstructive pulmonary disease): Changed nebs to levalbuterol. Stopped prednisone because of delirium + suspected [employer] infection. (6) Pneumonia: Congested cough. Temp as high as 39.3. No infiltrates seen on initial CXR. Sputum ordered for gram stain, C&S; no specimen produced thus far. Blood cultures were done 01/11 - negative so far. CXR 01/14 - emphysematous changes, possible infiltrate left base. At risk for aspiration. Continue doxy + pip / tazo for possible pneumonia - healthcare acquired vs aspiration. Repeat CXR today (7) Nocturnal hypoxia: Continue supplemental O2. (8) Squamous cell carcinoma lung: Biopsy of endobronchial lesion 01/04/[address] Bowers. Path consistent with squamous cell Ca. Scheduled for PET scan 01/16- will need to be rescheduled. Scheduled for outpt MRI brain for staging. MRI performed 01/13 - no apparent mets. Outpatient follow-up with Dr. Bowers. (9) GERD (gastroesophageal reflux disease): Continue PPI. (10) Hypokalemia: Monitoring (11) Distal radius fracture, right: Nondisplaced fracture distal radius. Seen in consultation by Ortho. Nonsurgical management / splinting recommended. Continue calcium supplementation. Vitamin D level = 44. (12) Depression: Bupropion, venlafaxine, and trazodone all associated with hyponatremia. (13) DVT prophylaxis: Increased risk for VTE due to malignancy, age, and other factors. Received SQ enoxaparin, but need to hold for LP. Resume prophlactic anticoagulants 24 hours after LP. SCD's. Ambulate. (14) Discharge planning issues: Discharge plans to be determined. May need skilled care. Case Management following. Internal Medicine follow-up with Dr. Kenzie Feliciano. Thoracic Medicine follow-up with Dr. Bowers. Orthopedics follow-up with Dr. Jaffe 4 weeks after discharge. ROS-No Headache, No Visual Changes, No Nausea, No Vomiting, No Fever, No Chills, No Neck Pain or Stiffness, No Chest Pain, No Palpitations, No SOB, No GROSS, No Cough, No Sputum, No Wheezing, No Abdominal Pain, No Diarrhea, No Hematemesis, No Hemoptysis, No Unexpected Weight Loss, No Flank pain, No Melena, No Hematochezia, No Frequency, No Urgency, No Burning, No Hematuria, No Rashes, No Diaphoresis. Appetite is Normal Physical Exam Gen-AAO x 3, NAD, Afebrile Head-NCAT, EOMI, PERRLA, Anicteric Sclera, No Posterior Pharyngeal Erythema Neck-Supple, No JVD, No Thyromegaly, No Masses, No LAD, No Bruits Lungs-Wheezing Bilaterally, No Rales, No Rhonchi, No Crepitus Chest-No S4, +S1, +S2, No S3, No Murmurs, No Rubs, No Gallops, No Ectopy Abdomen-Soft, Bowel Sounds Present, Non Tender, Non Distended, No Hepatomegaly, No Splenomegaly, No Palpable Masses, No Rebound, No Rigidity, No Guarding Musculoskeletal-Full Range of Motion Bilaterally, No CVAT Extremities-No Cyanosis, No Clubbing, No Edema Nuero-Cranial Nerves II-XII grossly intact, Motor WNL, DTRs WNL, Strength WNL, Non Focal Psych-Normal Mood Subjective continues on emperic acyclovir for suspect HSV encephalitis, pcr pending. blood and csf cultures remain negative, csf final. pathology negative for malignancy. afebrile today. wbc 11. 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) Pneumonia, unspecified organism (01/11/19) Chronic obstructive pulmonary disease, unspecified (01/11/19) Gastro-esophageal reflux disease without esophagitis (01/11/19) Altered mental status, unspecified (01/11/19) Fever, unspecified (01/11/19) Abnormal electroencephalogram [EEG] (01/11/19) Unspecified fracture of the lower end of right radius, initial encounter for closed fracture (01/11/19) Encounter for administrative examinations, unspecified (01/11/19) Allergies No Known Allergies Allergy (Verified 01/11/19 09:15) Height/Weight/Isolation Height 5 ft 2 in Weight 51 kg Chemistry 01/17/19 01/18/19 05:56 06:36 Sodium 136 134 L Potassium 3.9 3.6 Chloride 103 101 Carbon Dioxide 26 26 Anion Gap 7.0 8.0 BUN 16 18 Creatinine 0.67 0.75 Glucose 97 111 H Microbiology 01/15/19 11:19 Cerebral Spinal Fluid Acid Fast Bacilli Smear - Final 01/15/19 11:19 Cerebral Spinal Fluid Acid Fast Bacilli Culture - Pending 01/15/19 11:19 Cerebral Spinal Fluid Gram Stain - Final 01/15/19 11:19 Cerebral Spinal Fluid CSF Culture - Final No growth 01/11/19 09:15 Blood Blood Culture - Final No growth 01/11/19 09:07 Blood Blood Culture - Final No growth
--- NOTE | 2019-01-18 12:49 | XRay Report ---
XR chest 1V portable CLINICAL HISTORY: Wheezing dyspnea COMPARISON STUDY: 01/14/2019 FINDINGS: Emphysematous change. Minimal parenchymal infiltrate left base slightly progressive from th e prior study. Minimal atelectasis right base. IMPRESSION: 1. Emphysematous change. 2. Slightly progressive left basilar infiltrate. The above report was generated using voice recognition software. It may contain grammatical, syntax or spelling errors. Electronically signed by: José Miguel Rivas M.D. 01/18/2019 12:48 PM
--- NOTE | 2019-01-18 14:39 | Infectious Disease Progress Nt ---
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 would give total 10 days acyclovir. can stop zosyn from ID standpoint. continue supportive care. Subjective pt seen in followup, family at bedside. asking for pt to be d/c today. receiving neb on my exam. much more arousable today, denies vergara, no visual change, no f/c. no neck pain, no abd pain, no n/v/d, no cp,sob, cough. all remaining ros reviewed and are negative. remains on zoysn and acyclovir. tolerating well. HSV PCR + HSV 1. informed of + test. blood cultures and csf cultures remain negative. [id number] today. afebrile. Review of Systems Review of Systems: All systems reviewed & are unremarkable except as noted in HPI & below Physical Exam Constitutional: WD/WN, vitals as above Eyes: PERRL, conjunctivae normal, anicteric sclerae ENMT: Mouth: no lip abnormality, no oropharynx abnormality and no oral mucosal abnormality Neck: normal visual inspection Respiratory: normal respiratory effort, lungs clear to auscultation Cardiovascular: RRR, no murmur, no edema Gastrointestinal (Abdomen): normal bowel sounds, soft, nontender, no hepatosplenomegaly Musculoskeletal: no cyanosis or clubbing, extremities motor strength 5/5 Head/Neck/Chest: neck supple Skin: no rashes, warm and dry Neurologic: normal touch/pain/proprioception and moves all extremities Speech / Cognition: normal speech Psychiatric: A+Ox3, euthymic affect Orientation: + not alert Speech: normal rate/rhythm/volume of speech Results & Data Vital Signs (Past 12 Hours) Vital Signs Temp Pulse Resp BP Pulse Ox 01/18/19 14:09 96 H 18 91 01/18/19 07:32 36.8 C 64 20 121/60 91 01/18/19 07:03 90 16 92 Laboratory Results Microbiology 01/15/19 11:19 Cerebral Spinal Fluid Acid Fast Bacilli Smear - Final 01/15/19 11:19 Cerebral Spinal Fluid Gram Stain - Final 01/15/19 11:19 Cerebral Spinal Fluid CSF Culture - Final No growth 01/11/19 09:15 Blood Blood Culture - Final No growth 01/11/19 09:07 Blood Blood Culture - Final No growth 01/15/19 11:19 Cerebral Spinal Fluid Cryptococcal Antigen - Final
--- NOTE | 2019-01-18 14:42 | Progress Note ---
DATE: 01/18/2019 Ms. Rosario was seen today. She looks much improved and apparently has responded to the acyclovir. Her x-ray looks good. We are going to reschedule her PET scan as an outpatient. The outpatient MRI of her brain shows no evidence of metastatic disease. We will be referring her to oncology as an outpatient after her PET.
--- NOTE | 2019-01-18 15:07 | Neurology Progress Note ---
Date of Service January 18, 2019 Assessment & Plan (1) Altered mental status: 1. LP- preformed - elevated WBC and protein 2. Acyclovir 500 mg q8 hours- ID to direct length of treatment 3. ID - for further recommendation 4. medical management per primary team 5. EEG- seizure focus - Keppra started 750 mg BID- which may contribute to current lethargy-decreased to 500 mg BID is tolerating better 6. 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 labs for Lyme PCR, EBV, HSV, +HSV 8. PT/OT for discharge needs 9. care mgt for facilitating transfer to [facility] prior to return to her apartment 10. bone scan done as out patient Supervising Physician Co-Signing Physician Notes I have seen and discussed above patient with Dr Elise Horner, neurology PT seen and examined. Hx reviewed. Pt sleepy, but oriented. No headache. Mild flattening of L NLF. No drift, equal LE strength. Tremor on intention bl. 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 Continue acyclovir per ID. Still need to consider paraneoplastic etiology. will perform paraneoplastic antibodies as an outpt May need to retap pt to eval for resolution. Continue Keppra at current dosing. ANTHONY Horner MD Yamilet Domingo is a 73 year old female who presents to the ED with altered mental status. She was recently admitted to [facility] 01/03 through 01/05 for observation after she developed bleeding during an outpatient bronchoscopy. During that bronchoscopy, patient was found to have a left upper lobe lesion however given friability, there was unable to be biopsied at that time. Dr. 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 She was discharged on a long prednisone taper and Levaquin for [address] Bowers was planning a brain MRI and PET scan for staging. She had developing some confusion about 4 days ago which got progressively worse. She also suffered a fall injuring her right wrist. Her labs show sodium 125. She was a smoker but quit 3 months ago. Her family contact is bedside today and states she thinks she is doing as well as yesterday. She was sleeping when entering the room but awake and oriented during exam. denies CP, worsening SOB, abdominal pain, one sided weakness, numbness tingling, N, V, vision changes. 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 5/5 left, right splinted neuro knows [facility], Jan, 2019 no pronator drift -reaching tremor bilaterally Results & Data Vital Signs (Past 12 Hours) Vital Signs Temp Pulse Resp BP Pulse Ox 01/18/19 15:01 36.9 C 111 H 20 125/56 L 94 01/18/19 14:09 96 H 18 91 01/18/19 07:32 36.8 C 64 20 121/60 91 01/18/19 07:03 90 16 92 Laboratory Results Abnormal lab results 01/15/19 01/18/19 01/18/19 Range/Units 11:19 06:36 06:36 WBC 12.19 H (4.8-10.8) K/uL RBC 3.70 L (4.2-5.4) M/uL Hgb 11.5 L (12.0-16.0) g/dL Hct 33.7 L (37-47) % RDW Std Deviation 50.3 H (36.4-46.3) fL RDW Coeff of Yamini 15.1 H (11.5-14.5) % Immature Gran # (Auto) 0.05 H (0.00-0.02) K/uL Neut # (Auto) 9.83 H (1.4-6.5) K/uL Lymph # (Auto) 1.05 L (1.2-3.4) K/uL [place] # (Auto) 1.02 H (0.11-0.59) K/uL Sodium 134 L (136-145) mmol/L BUN/Creatinine Ratio 23.3 H (10-20) Glucose 111 H (70-99) mg/dl EBV DNA (PCR) 1125 H (<200) copies/mL HSV I DNA PCR Detected A (Not Detected) Diagnostic Findings CXR-. Emphysematous change. Slightly progressive left basilar infiltrate.
[2019-01-18] MEDS: ROSUVASTATIN CALCIUM 20 MG TAB PO SCH (21:49)
[2019-01-18] MEDS: MONTELUKAST SODIUM 10 MG TABLET PO SCH (21:49)
[2019-01-19] MEDS: LEVALBUTEROL 1.25MG/0.5ML NEB INH SCH ×4 (02:10→20:14)
[2019-01-19] MEDS: ACYCLOVIR SOD 500 MG in DEXTROSE 5% 100 ML IV SCH ×3 (06:33→20:25)
[2019-01-19] MEDS: FUROSEMIDE 20 MG TAB PO SCH ×2 (07:51→17:13)
[2019-01-19] MEDS: FLUTICASONE/SALMETEROL (ADVAIR) 500/50 INH 14 PUFF INH SCH ×2 (07:51→20:25)
[2019-01-19] MEDS: levETIRAcetam 500 MG TAB PO SCH ×2 (07:51→20:23)
[2019-01-19] MEDS: VENLAFAXINE HCL XR 150 MG CAPXR PO SCH (07:51)
[2019-01-19] MEDS: PANTOprazole 40 MG TAB PO SCH (07:51)
[2019-01-19] MEDS: SODIUM CHLORIDE 1 GM TABLET PO SCH ×3 (07:51→20:23)
[2019-01-19] MEDS: DOCUSATE SODIUM 100 MG CAP PO SCH ×2 (07:51→20:28)
[2019-01-19] MEDS: guaiFENesin 600 MG TABCR PO SCH ×2 (07:51→20:24)
[2019-01-19] MEDS: POTASSIUM CHLORIDE 20 MEQ TABCR PO SCH (07:51)
[2019-01-19] MEDS: TAMSULOSIN HCL 0.4 MG CAP PO SCH (07:51)
[2019-01-19] MEDS: ASCORBIC ACID 500 MG TAB PO SCH (07:52)
[2019-01-19] MEDS: CYANOCOBALAMIN 500 MCG TABLET (VITAMIN B-12) PO SCH (07:52)
[2019-01-19] MEDS: DOXYCYCLINE HYCLATE 100 MG CAP PO SCH (07:52)
[2019-01-19] MEDS: THIAMINE HCL 100 MG in SYRINGE 9 ML IV SCH (07:52)
[2019-01-19] MEDS: BuPROPion SR 100 MG TABCR PO SCH (07:52)
[2019-01-19 08:53] LABS: Hemoglobin 11.9 g/dL (12.0-16.0); Mean Corpuscular Volume 90.7 fL (80-100); Mean Platelet Volume 7.9 fL (7.4-10.4); Platelet Count 325 K/uL (130-400); RDW Coefficient of Variation 14.8 % (11.5-14.5); RDW Standard Deviation 48.4 fL (36.4-46.3); Red Blood Count 3.75 M/uL (4.2-5.4); White Blood Count 14.49 K/uL (4.8-10.8)
[2019-01-19 09:23] LABS: BUN Creatinine Ratio 24.2 (10-20); Creatinine Clr Calc Pharmacy 54.3 ml/min; Est GFR (African American) 94.7; Est GFR (Non-African American) 81.7; Potassium 3.7 mmol/L (3.5-5.1)
--- NOTE | 2019-01-19 11:38 | Progress Note ---
DATE: 01/19/2019 SUBJECTIVE: I am seeing Ms. Rosario in followup of meningitis, which appears to be HSV. It appears that her CSF HSV 1 is positive. She has not had any further seizures and is tolerating Keppra. She denies any katerine headache. PHYSICAL EXAMINATION: GENERAL: She is awake and alert. NEUROLOGIC: Speech is mildly dysarthric. There is a mild flattening of left nasolabial fold, which is marginal. No asymmetric weakness. 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 PLAN: 1. Continue antiviral therapy, Keppra. 2. The patient will need repeat imaging at some point probably 1 month from now. 3. The patient has a history of a recent diagnosis of lung cancer. We will need to be mindful of rule out a paraneoplastic etiology, although the presence of HSV and her CSF suggest that this is a herpetic. We will follow with you.
--- NOTE | 2019-01-19 12:48 | Hospitalist Progress Note ---
Date of Service January 19, 2019 Assessment & Plan (1) Altered mental status: resolved MRI brain suggests HSV encephalitis as discussed below. (2) Encephalitis: Febrile illness with altered mental status. 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 Started acyclovir 10 mg / kg q 8 hrs on 01/14. Today is day # 2. EEG INTERPRETATION: "This is an abnormal EEG in a patient with altered mentation due to 1. Single right temporal epileptiform discharge suggestive of an underlying predisposition for seizures from this area, 2. Focal slowing in the right temporal head region suggestive of an underlying structural abnormality, 3. Diffuse background slowing suggestive of a non specific encephalopathy. " Neuro checks. Needs LP. Last dose of enoxaparin was evening of 01/13. Last dose of ASA was morning of 01/13. LP ordered under fluoroscopic guidance. In addition to routine studies, will order PCR's for HSV 1-2 PCR, HZV, CMV, EBV, Lyme + cryptococcal Ag. CSF paraneoplastic panel is a reference lab study and extremely expensive. Requires 2 ml CSF. Negative Radiology asked to obtain at least 12 ml CSF. HSV PCR +, 10 day course of Acyclovir WBCs are trending up, I'll reach out to ID Continue IV acyclovir. (3) Abnormal EEG: EEG INTERPRETATION: "This is an abnormal EEG in a patient with altered mentation due to 1. Single right temporal epileptiform discharge suggestive of an underlying predisposition for seizures from this area, 2. Focal slowing in the right temporal head region suggestive of an underlying structural abnormality, 3. Diffuse background slowing suggestive of a non specific encephalopathy. " No clinically overt seizure activity. 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 1200 ml fluid restriction + furosemide 20 mg BID recommended. (5) COPD (chronic obstructive pulmonary disease): Changed nebs to levalbuterol. Stopped prednisone because of delirium + suspected MYCOLOGIST infection. (6) Pneumonia: Congested cough. Temp as high as 39.3. No infiltrates seen on initial CXR. Sputum ordered for gram stain, C&S; no specimen produced thus far. Blood cultures were done 01/11 - negative so far. CXR 01/14 - emphysematous changes, possible infiltrate left base. At risk for aspiration. (7) Nocturnal hypoxia: Continue supplemental O2. (8) Squamous cell carcinoma lung: Biopsy of endobronchial lesion 01/04/[address] Bowers. Path consistent with squamous cell Ca. Scheduled for PET scan 01/16- will need to be rescheduled. Scheduled for outpt MRI brain for staging. MRI performed 01/13 - no apparent mets. Outpatient follow-up with Dr. Bowers. (9) GERD (gastroesophageal reflux disease): Continue PPI. (10) Hypokalemia: Monitoring (11) Distal radius fracture, right: Nondisplaced fracture distal radius. Seen in consultation by Ortho. Nonsurgical management / splinting recommended. Continue calcium supplementation. Vitamin D level = 44. (12) Depression: Bupropion, venlafaxine, and trazodone all associated with hyponatremia. (13) DVT prophylaxis: Increased risk for VTE due to malignancy, age, and other factors. Received SQ enoxaparin, but need to hold for LP. Resume prophlactic anticoagulants 24 hours after LP. SCD's. Ambulate. (14) Discharge planning issues: Discharge plans to be determined. Last Dose Acyclovir on 01/24 evening May need skilled care. Case Management following. Internal Medicine follow-up with Dr. Kenzie Feliciano. Thoracic Medicine follow-up with Dr. Bowers. Orthopedics follow-up with Dr. Jaffe 4 weeks after discharge. ROS-No Headache, No Visual Changes, No Nausea, No Vomiting, No Fever, No Chills, No Neck Pain or Stiffness, No Chest Pain, No Palpitations, No SOB, No GROSS, No Cough, No Sputum, No Wheezing, No Abdominal Pain, No Diarrhea, No Hematemesis, No Hemoptysis, No Unexpected Weight Loss, No Flank pain, No Melena, No Hematochezia, No Frequency, No Urgency, No Burning, No Hematuria, No Rashes, No Diaphoresis. Appetite is Normal Physical Exam Gen-AAO x 3, NAD, Afebrile Head-NCAT, EOMI, PERRLA, Anicteric Sclera, No Posterior Pharyngeal Erythema Neck-Supple, No JVD, No Thyromegaly, No Masses, No LAD, No Bruits Lungs-Wheezing Bilaterally, but improved today, Faint Rales, No Rhonchi, No Crepitus Chest-No S4, +S1, +S2, No S3, No Murmurs, No Rubs, No Gallops, No Ectopy Abdomen-Soft, Bowel Sounds Present, Non Tender, Non Distended, No Hepatomegaly, No Splenomegaly, No Palpable Masses, No Rebound, No Rigidity, No Guarding Musculoskeletal-Full Range of Motion Bilaterally, No CVAT Extremities-No Cyanosis, No Clubbing, No Edema Nuero-Cranial Nerves II-XII grossly intact, Motor WNL, DTRs WNL, Strength WNL, Non Focal Psych-Normal Mood Subjective Chayo is a 73 year old female who presents to the ED with altered mental status. She was recently admitted to [facility] 01/03 through 01/05 for observation after she developed bleeding during an outpatient bronchoscopy. During that bronchoscopy, patient was found to have a left upper lobe lesion however given friability, there was unable to be biopsied at that time. Dr. 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 She was discharged on a long prednisone taper and Levaquin for [address] Bowers was planning a brain MRI and PET scan for staging. She had developing some confusion about 4 days ago which got progressively worse. She also suffered a fall injuring her right wrist. Her labs show sodium 125. She was a smoker but quit 3 months ago. Her family contact is bedside today and states she thinks she is doing as well as yesterday. She was sleeping when entering the room but awake and oriented during exam. denies CP, worsening SOB, abdominal pain, one sided weakness, numbness tingling, N, V, vision changes. 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) Pneumonia, unspecified organism (01/11/19) Chronic obstructive pulmonary disease, unspecified (01/11/19) Gastro-esophageal reflux disease without esophagitis (01/11/19) Altered mental status, unspecified (01/11/19) Fever, unspecified (01/11/19) Abnormal electroencephalogram [EEG] (01/11/19) Unspecified fracture of the lower end of right radius, initial encounter for closed fracture (01/11/19) Encounter for administrative examinations, unspecified (01/11/19) Allergies No Known Allergies Allergy (Verified 01/11/19 09:15) Height/Weight/Isolation Height 5 ft 2 in Weight 51 kg CBC 01/11/19 01/11/19 01/11/19 08:59 09:07 09:07 WBC 14.77 H RBC 4.15 L Hgb 13.2 Hct 37.3 MCV 89.9 MCH 31.8 MCHC 35.4 RDW Std Deviation 44.4 RDW Coeff of Yamini 13.5 Plt Count 281 MPV 8.4 Immature Gran % (Auto) 0.5 Neut % (Auto) 85.2 Lymph % (Auto) 10.0 [place] % (Auto) 4.3 Eos % (Auto) 0.0 Baso % (Auto) 0.0 Immature Gran # (Auto) 0.07 H Neut # (Auto) 12.59 H Lymph # (Auto) 1.48 [place] # (Auto) 0.63 H Eos # (Auto) 0.00 Baso # (Auto) 0.00 PT Cancelled INR Cancelled APTT PTT Ratio VBG pH 7.44 H VBG pCO2 46 VBG pO2 25 VBG HCO3 31 VBG O2 Saturation < 60.0 VBG Base Excess 5.7 Barometric Pressure 719.3 Sodium Potassium Chloride Carbon Dioxide Anion Gap BUN Creatinine Est Cr Clr Drug Dosing Est GFR ( Amer) Est GFR (Non-Af Amer) BUN/Creatinine Ratio Glucose Osmolality POC Lactic Acid Pankaj Calcium Magnesium Total Bilirubin Direct Bilirubin AST ALT Alkaline Phosphatase Total Creatine Kinase Troponin I Total Protein Albumin Globulin Albumin/Globulin Ratio 25-OH Vitamin D Total TSH Specimen Hemolysis Urine Color Urine Appearance Urine pH Ur Specific [place] Urine Protein Urine Glucose (UA) Urine Ketones Urine Blood Urine Nitrite Urine Bilirubin Urine Urobilinogen Ur Leukocyte Esterase Urine Osmolality Ur Random Sodium Fld Lyme DNA (PCR) CSF Appearance CSF Color Xanthrochromic CSF WBC CSF RBC CSF Cell Count Tube # CSF Mononuclear WBCs CSF Polynuclear WBCs CSF Chemistry Tube # CSF Glucose CSF Total Protein Lyme Specimen Source CMV Specimen Source CMV Qnt PCR IU/mL CMV Qnt PCR log IU/mL EBV Source EBV DNA (PCR) Herpes Virus Source HSV I DNA PCR HSV II DNA PCR Varicella-Zoster Source VZV DNA (PCR) 01/11/19 01/11/19 01/11/19 09:07 09:07 09:11 WBC RBC Hgb Hct MCV MCH MCHC RDW Std Deviation RDW Coeff of Yamini Plt Count MPV Immature Gran % (Auto) Neut % (Auto) Lymph % (Auto) [place] % (Auto) Eos % (Auto) Baso % (Auto) Immature Gran # (Auto) Neut # (Auto) Lymph # (Auto) [place] # (Auto) Eos # (Auto) Baso # (Auto) PT INR APTT PTT Ratio VBG pH VBG pCO2 VBG pO2 VBG HCO3 VBG O2 Saturation VBG Base Excess Barometric Pressure Sodium 125 L Potassium 3.5 Chloride 90 L Carbon Dioxide 30 Anion Gap 5.0 BUN 15 Creatinine 0.79 Est Cr Clr Drug Dosing Not Reportable Est GFR ( Amer) 86.1 Est GFR (Non-Af Amer) 74.3 BUN/Creatinine Ratio 19.5 Glucose 91 Osmolality 263 L POC Lactic Acid Pankaj 0.90 Calcium 8.1 L Magnesium Total Bilirubin 1.0 Direct Bilirubin AST 21 ALT 26 Alkaline Phosphatase 49 Total Creatine Kinase 103 Troponin I < 0.015 Total Protein 6.9 Albumin 3.6 Globulin 3.3 Albumin/Globulin Ratio 1.1 25-OH Vitamin D Total TSH 0.815 Specimen Hemolysis Urine Color Urine Appearance Urine pH Ur Specific [place] Urine Protein Urine Glucose (UA) Urine Ketones Urine Blood Urine Nitrite Urine Bilirubin Urine Urobilinogen Ur Leukocyte Esterase Urine Osmolality Ur Random Sodium Fld Lyme DNA (PCR) CSF Appearance CSF Color Xanthrochromic CSF WBC CSF RBC CSF Cell Count Tube # CSF Mononuclear WBCs CSF Polynuclear WBCs CSF Chemistry Tube # CSF Glucose CSF Total Protein Lyme Specimen Source CMV Specimen Source CMV Qnt PCR IU/mL CMV Qnt PCR log IU/mL EBV Source EBV DNA (PCR) Herpes Virus Source HSV I DNA PCR HSV II DNA PCR Varicella-Zoster Source VZV DNA (PCR) 01/11/19 01/11/19 01/11/19 10:10 10:46 10:46 WBC RBC Hgb Hct MCV MCH MCHC RDW Std Deviation RDW Coeff of Yamini Plt Count MPV Immature Gran % (Auto) Neut % (Auto) Lymph % (Auto) [place] % (Auto) Eos % (Auto) Baso % (Auto) Immature Gran # (Auto) Neut # (Auto) Lymph # (Auto) [place] # (Auto) Eos # (Auto) Baso # (Auto) PT 11.7 INR 1.2 H APTT 23.8 PTT Ratio 0.9 VBG pH VBG pCO2 VBG pO2 VBG HCO3 VBG O2 Saturation VBG Base Excess Barometric Pressure Sodium Potassium Chloride Carbon Dioxide Anion Gap BUN Creatinine Est Cr Clr Drug Dosing Est GFR ( Amer) Est GFR (Non-Af Amer) BUN/Creatinine Ratio Glucose Osmolality POC Lactic Acid Pankaj Calcium Magnesium Total Bilirubin Direct Bilirubin AST ALT Alkaline Phosphatase Total Creatine Kinase Troponin I Total Protein Albumin Globulin Albumin/Globulin Ratio 25-OH Vitamin D Total TSH Specimen Hemolysis Urine Color Yellow Urine Appearance Clear Urine pH 7.5 Ur Specific [place] 1.019 Urine Protein Negative Urine Glucose (UA) Negative Urine Ketones 1+ H Urine Blood Negative Urine Nitrite Negative Urine Bilirubin Negative Urine Urobilinogen Negative Ur Leukocyte Esterase Negative Urine Osmolality 566 Ur Random Sodium Fld Lyme DNA (PCR) CSF Appearance CSF Color Xanthrochromic CSF WBC CSF RBC CSF Cell Count Tube # CSF Mononuclear WBCs CSF Polynuclear WBCs CSF Chemistry Tube # CSF Glucose CSF Total Protein Lyme Specimen Source CMV Specimen Source CMV Qnt PCR IU/mL CMV Qnt PCR log IU/mL EBV Source EBV DNA (PCR) Herpes Virus Source HSV I DNA PCR HSV II DNA PCR Varicella-Zoster Source VZV DNA (PCR) 01/11/19 01/11/19 01/11/19 10:46 13:01 16:23 WBC RBC Hgb Hct MCV MCH MCHC RDW Std Deviation RDW Coeff of Yamini Plt Count MPV Immature Gran % (Auto) Neut % (Auto) Lymph % (Auto) [place] % (Auto) Eos % (Auto) Baso % (Auto) Immature Gran # (Auto) Neut # (Auto) Lymph # (Auto) [place] # (Auto) Eos # (Auto) Baso # (Auto) PT INR APTT PTT Ratio VBG pH VBG pCO2 VBG pO2 VBG HCO3 VBG O2 Saturation VBG Base Excess Barometric Pressure Sodium 130 L 129 L Potassium 3.3 L 3.3 L Chloride 93 L 93 L Carbon Dioxide 28 30 Anion Gap 9.0 6.0 BUN 13 13 Creatinine 0.59 L 0.73 Est Cr Clr Drug Dosing 67.2 54.3 Est GFR ( Amer) 105.4 94.7 Est GFR (Non-Af Amer) 90.9 81.7 BUN/Creatinine Ratio 22.0 H 18.0 Glucose 97 102 H Osmolality POC Lactic Acid Pankaj Calcium 7.7 L 7.9 L Magnesium 2.1 Total Bilirubin Direct Bilirubin AST ALT Alkaline Phosphatase Total Creatine Kinase Troponin I Total Protein Albumin Globulin Albumin/Globulin Ratio 25-OH Vitamin D Total TSH Specimen Hemolysis Urine Color Urine Appearance Urine pH Ur Specific [place] Urine Protein Urine Glucose (UA) Urine Ketones Urine Blood Urine Nitrite Urine Bilirubin Urine Urobilinogen Ur Leukocyte Esterase Urine Osmolality Ur Random Sodium 76 Fld L[place] DNA (PCR) CSF Appearance CSF Color Xanthrochromic CSF WBC CSF RBC CSF Cell Count Tube # CSF Mononuclear WBCs CSF Polynuclear WBCs CSF Chemistry Tube # CSF Glucose CSF Total Protein Lyme Specimen Source CMV Specimen Source CMV Qnt PCR IU/mL CMV Qnt PCR log IU/mL EBV Source EBV DNA (PCR) Herpes Virus Source HSV I DNA PCR HSV II DNA PCR Varicella-Zoster Source VZV DNA (PCR) 01/11/19 01/12/19 01/12/19 20:20 00:14 05:25 WBC 9.11 RBC 3.70 L Hgb 11.4 L Hct 33.2 L MCV 89.7 MCH 30.8 MCHC 34.3 RDW Std Deviation 44.6 RDW Coeff of Yamini 13.6 Plt Count 145 MPV 9.8 Immature Gran % (Auto) Neut % (Auto) Lymph % (Auto) [place] % (Auto) Eos % (Auto) Baso % (Auto) Immature Gran # (Auto) Neut # (Auto) Lymph # (Auto) [place] # (Auto) Eos # (Auto) Baso # (Auto) PT INR APTT PTT Ratio VBG pH VBG pCO2 VBG pO2 VBG HCO3 VBG O2 Saturation VBG Base Excess Barometric Pressure Sodium 129 L 128 L Potassium 3.5 3.6 Chloride 95 L 95 L Carbon Dioxide 27 32 Anion Gap 7.0 1.0 L BUN 13 13 Creatinine 0.72 0.66 Est Cr Clr Drug Dosing 55.0 60.0 Est GFR ( Amer) 96.3 101.6 Est GFR (Non-Af Amer) 83.1 87.6 BUN/Creatinine Ratio 18.5 19.5 Glucose 108 H 102 H Osmolality POC Lactic Acid Pankaj Calcium 7.8 L 7.4 L Magnesium Total Bilirubin Direct Bilirubin AST ALT Alkaline Phosphatase Total Creatine Kinase Troponin I Total Protein Albumin Globulin Albumin/Globulin Ratio 25-OH Vitamin D Total TSH Specimen Hemolysis Urine Color Urine Appearance Urine pH Ur Specific [place] Urine Protein Urine Glucose (UA) Urine Ketones Urine Blood Urine Nitrite Urine Bilirubin Urine Urobilinogen Ur Leukocyte Esterase Urine Osmolality Ur Random Sodium Fld [place] DNA (PCR) CSF Appearance CSF Color Xanthrochromic CSF WBC CSF RBC CSF Cell Count Tube # CSF Mononuclear WBCs CSF Polynuclear WBCs CSF Chemistry Tube # CSF Glucose CSF Total Protein Lyme Specimen Source CMV Specimen Source CMV Qnt PCR IU/mL CMV Qnt PCR log IU/mL EBV Source EBV DNA (PCR) Herpes Virus Source HSV I DNA PCR HSV II DNA PCR Varicella-Zoster Source VZV DNA (PCR) 01/12/19 01/12/19 01/13/19 05:25 07:56 05:14 WBC RBC Hgb Hct MCV MCH MCHC RDW Std Deviation RDW Coeff of Yamini Plt Count MPV Immature Gran % (Auto) Neut % (Auto) Lymph % (Auto) [place] % (Auto) Eos % (Auto) Baso % (Auto) Immature Gran # (Auto) Neut # (Auto) Lymph # (Auto) [place] # (Auto) Eos # (Auto) Baso # (Auto) PT INR APTT PTT Ratio VBG pH VBG pCO2 VBG pO2 VBG HCO3 VBG O2 Saturation VBG Base Excess Barometric Pressure Sodium 128 L 131 L 132 L Potassium 3.7 3.4 L 3.0 L Chloride 96 L 96 L 95 L Carbon Dioxide 28 27 31 Anion Gap 4.0 8.0 6.0 BUN 10 10 11 Creatinine 0.59 L 0.54 L 0.79 Est Cr Clr Drug Dosing 67.2 73.4 50.2 Est GFR ( Amer) 105.4 108.5 86.1 Est GFR (Non-Af Amer) 90.9 93.6 74.3 BUN/Creatinine Ratio 17.6 19.0 14.0 Glucose 91 114 H 99 Osmolality POC Lactic Acid Pankaj Calcium 7.6 L 7.8 L 8.5 Magnesium Total Bilirubin Direct Bilirubin AST ALT Alkaline Phosphatase Total Creatine Kinase Troponin I Total Protein Albumin Globulin Albumin/Globulin Ratio 25-OH Vitamin D Total TSH Specimen Hemolysis Urine Color Urine Appearance Urine pH Ur Specific [place] Urine Protein Urine Glucose (UA) Urine Ketones Urine Blood Urine Nitrite Urine Bilirubin Urine Urobilinogen Ur Leukocyte Esterase Urine Osmolality Ur Random Sodium Fld [place] DNA (PCR) CSF Appearance CSF Color Xanthrochromic CSF WBC CSF RBC CSF Cell Count Tube # CSF Mononuclear WBCs CSF Polynuclear WBCs CSF Chemistry Tube # CSF Glucose CSF Total Protein [place] Specimen Source CMV Specimen Source CMV Qnt PCR IU/mL CMV Qnt PCR log IU/mL EBV Source EBV DNA (PCR) Herpes Virus Source HSV I DNA PCR HSV II DNA PCR Varicella-Zoster Source VZV DNA (PCR) 01/13/19 01/14/19 01/14/19 05:14 06:21 06:21 WBC 12.81 H RBC 3.62 L Hgb 11.2 L Hct 32.5 L MCV 89.8 MCH 30.9 MCHC 34.5 RDW Std Deviation 47.1 H RDW Coeff of Yamini 14.4 Plt Count 236 MPV 8.1 Immature Gran % (Auto) Neut % (Auto) Lymph % (Auto) [place] % (Auto) Eos % (Auto) Baso % (Auto) Immature Gran # (Auto) Neut # (Auto) Lymph # (Auto) [place] # (Auto) Eos # (Auto) Baso # (Auto) PT INR APTT PTT Ratio VBG pH VBG pCO2 VBG pO2 VBG HCO3 VBG O2 Saturation VBG Base Excess Barometric Pressure Sodium Potassium Chloride Carbon Dioxide Anion Gap BUN Creatinine 0.84 Est Cr Clr Drug Dosing 47.2 Est GFR ( Amer) 79.9 Est GFR (Non-Af Amer) 69.0 BUN/Creatinine Ratio Glucose Osmolality POC Lactic Acid Pankaj Calcium Magnesium Total Bilirubin Direct Bilirubin AST ALT Alkaline Phosphatase Total Creatine Kinase Troponin I Total Protein Albumin Globulin Albumin/Globulin Ratio 25-OH Vitamin D Total 44.3 TSH Specimen Hemolysis Urine Color Urine Appearance Urine pH Ur Specific [place] Urine Protein Urine Glucose (UA) Urine Ketones Urine Blood Urine Nitrite Urine Bilirubin Urine Urobilinogen Ur Leukocyte Esterase Urine Osmolality Ur Random Sodium Fld [place] DNA (PCR) CSF Appearance CSF Color Xanthrochromic CSF WBC CSF RBC CSF Cell Count Tube # CSF Mononuclear WBCs CSF Polynuclear WBCs CSF Chemistry Tube # CSF Glucose CSF Total Protein [place] Specimen Source CMV Specimen Source CMV Qnt PCR IU/mL CMV Qnt PCR log IU/mL EBV Source EBV DNA (PCR) Herpes Virus Source HSV I DNA PCR HSV II DNA PCR Varicella-Zoster Source VZV DNA (PCR) 01/14/19 01/15/19 01/15/19 06:21 05:12 05:12 WBC 13.56 H RBC 3.87 L Hgb 12.1 Hct 34.7 L MCV 89.7 MCH 31.3 MCHC 34.9 RDW Std Deviation 47.3 H RDW Coeff of Yamini 14.5 Plt Count 261 MPV 8.0 Immature Gran % (Auto) Neut % (Auto) Lymph % (Auto) [place] % (Auto) Eos % (Auto) Baso % (Auto) Immature Gran # (Auto) Neut # (Auto) Lymph # (Auto) [place] # (Auto) Eos # (Auto) Baso # (Auto) PT INR APTT PTT Ratio VBG pH VBG pCO2 VBG pO2 VBG HCO3 VBG O2 Saturation VBG Base Excess Barometric Pressure Sodium 133 L 130 L Potassium 3.3 L 3.4 L Chloride 100 96 L Carbon Dioxide 27 27 Anion Gap 6.0 7.0 BUN 12 Creatinine 0.67 Est Cr Clr Drug Dosing 59.1 Est GFR ( Amer) 101.1 Est GFR (Non-Af Amer) 87.2 BUN/Creatinine Ratio 18.4 Glucose 85 Osmolality POC Lactic Acid Pankaj Calcium 8.4 L Magnesium Total Bilirubin Direct Bilirubin AST ALT Alkaline Phosphatase Total Creatine Kinase Troponin I Total Protein Albumin Globulin Albumin/Globulin Ratio 25-OH Vitamin D Total TSH Specimen Hemolysis Urine Color Urine Appearance Urine pH Ur Specific [place] Urine Protein Urine Glucose (UA) Urine Ketones Urine Blood Urine Nitrite Urine Bilirubin Urine Urobilinogen Ur Leukocyte Esterase Urine Osmolality Ur Random Sodium Fld [place] DNA (PCR) CSF Appearance CSF Color Xanthrochromic CSF WBC CSF RBC CSF Cell Count Tube # CSF Mononuclear WBCs CSF Polynuclear WBCs CSF Chemistry Tube # CSF Glucose CSF Total Protein [place] Specimen Source CMV Specimen Source CMV Qnt PCR IU/mL CMV Qnt PCR log IU/mL EBV Source EBV DNA (PCR) Herpes Virus Source HSV I DNA PCR HSV II DNA PCR Varicella-Zoster Source VZV DNA (PCR) 01/15/19 01/15/19 01/15/19 11:19 11:19 11:19 WBC RBC Hgb Hct MCV MCH MCHC RDW Std Deviation RDW Coeff of Yamini Plt Count MPV Immature Gran % (Auto) Neut % (Auto) Lymph % (Auto) [place] % (Auto) Eos % (Auto) Baso % (Auto) Immature Gran # (Auto) Neut # (Auto) Lymph # (Auto) [place] # (Auto) Eos # (Auto) Baso # (Auto) PT INR APTT PTT Ratio VBG pH VBG pCO2 VBG pO2 VBG HCO3 VBG O2 Saturation VBG Base Excess Barometric Pressure Sodium Potassium Chloride Carbon Dioxide Anion Gap BUN Creatinine Est Cr Clr Drug Dosing Est GFR ( Amer) Est GFR (Non-Af Amer) BUN/Creatinine Ratio Glucose Osmolality POC Lactic Acid Pankaj Calcium Magnesium Total Bilirubin Direct Bilirubin AST ALT Alkaline Phosphatase Total Creatine Kinase Troponin I Total Protein Albumin Globulin Albumin/Globulin Ratio 25-OH Vitamin D Total TSH Specimen Hemolysis Urine Color Urine Appearance Urine pH Ur Specific [place] Urine Protein Urine Glucose (UA) Urine Ketones Urine Blood Urine Nitrite Urine Bilirubin Urine Urobilinogen Ur Leukocyte Esterase Urine Osmolality Ur Random Sodium Fld [place] DNA (PCR) Not detected CSF Appearance Clear CSF Color Colorless Xanthrochromic No xanthochromia CSF WBC 100 H* CSF RBC 38 CSF Cell Count Tube # 3 CSF Mononuclear WBCs 99.0 CSF Polynuclear WBCs 1.0 CSF Chemistry Tube # 1 CSF Glucose 47 CSF Total Protein 95.1 H Lyme Specimen Source CSF CMV Specimen Source CSF CMV Qnt PCR IU/mL <200 CMV Qnt PCR log IU/mL <2.30 EBV Source CSF EBV DNA (PCR) 1125 H Herpes Virus Source CSF HSV I DNA PCR Detected A HSV II DNA PCR Not Detected Varicella-Zoster Source CSF VZV DNA (PCR) Not Detected 01/16/19 01/17/19 01/17/19 05:55 05:56 05:56 WBC 11.07 H RBC 3.84 L Hgb 12.1 Hct 34.8 L MCV 90.6 MCH 31.5 MCHC 34.8 RDW Std Deviation 49.7 H RDW Coeff of Yamini 15.0 H Plt Count 280 MPV 8.1 Immature Gran % (Auto) Neut % (Auto) Lymph % (Auto) [place] % (Auto) Eos % (Auto) Baso % (Auto) Immature Gran # (Auto) Neut # (Auto) Lymph # (Auto) [place] # (Auto) Eos # (Auto) Baso # (Auto) PT INR APTT PTT Ratio VBG pH VBG pCO2 VBG pO2 VBG HCO3 VBG O2 Saturation VBG Base Excess Barometric Pressure Sodium 131 L 136 Potassium 3.7 3.9 Chloride 97 L 103 Carbon Dioxide 27 26 Anion Gap 7.0 7.0 BUN 15 16 Creatinine 0.71 0.67 Est Cr Clr Drug Dosing 55.8 59.1 Est GFR ( Amer) 97.9 101.1 Est GFR (Non-Af Amer) 84.5 87.2 BUN/Creatinine Ratio 21.4 H 24.4 H Glucose 98 97 Osmolality POC Lactic Acid Pankaj Calcium 8.5 8.6 Magnesium Total Bilirubin 0.9 0.6 Direct Bilirubin 0.2 AST 17 14 L ALT 22 20 Alkaline Phosphatase 52 50 Total Creatine Kinase Troponin I Total Protein 6.3 L 5.8 L Albumin 3.0 L 2.8 L Globulin 3.3 3.0 Albumin/Globulin Ratio 0.9 0.9 25-OH Vitamin D Total TSH Specimen Hemolysis Urine Color Urine Appearance Urine pH Ur Specific [place] Urine Protein Urine Glucose (UA) Urine Ketones Urine Blood Urine Nitrite Urine Bilirubin Urine Urobilinogen Ur Leukocyte Esterase Urine Osmolality Ur Random Sodium Fld [place] DNA (PCR) CSF Appearance CSF Color Xanthrochromic CSF WBC CSF RBC CSF Cell Count Tube # CSF Mononuclear WBCs CSF Polynuclear WBCs CSF Chemistry Tube # CSF Glucose CSF Total Protein [place] Specimen Source CMV Specimen Source CMV Qnt PCR IU/mL CMV Qnt PCR log IU/mL EBV Source EBV DNA (PCR) Herpes Virus Source HSV I DNA PCR HSV II DNA PCR Varicella-Zoster Source VZV DNA (PCR) 01/18/19 01/18/19 01/19/19 06:36 06:36 08:01 WBC 12.19 H 14.49 H RBC 3.70 L 3.75 L Hgb 11.5 L 11.9 L Hct 33.7 L 34.0 L MCV 91.1 90.7 MCH 31.1 31.7 MCHC 34.1 35.0 RDW Std Deviation 50.3 H 48.4 H RDW Coeff of Yamini 15.1 H 14.8 H Plt Count 296 325 MPV 8.0 7.9 Immature Gran % (Auto) 0.4 Neut % (Auto) 80.6 Lymph % (Auto) 8.6 [place] % (Auto) 8.4 Eos % (Auto) 1.9 Baso % (Auto) 0.1 Immature Gran # (Auto) 0.05 H Neut # (Auto) 9.83 H Lymph # (Auto) 1.05 L [place] # (Auto) 1.02 H Eos # (Auto) 0.23 Baso # (Auto) 0.01 PT INR APTT PTT Ratio VBG pH VBG pCO2 VBG pO2 VBG HCO3 VBG O2 Saturation VBG Base Excess Barometric Pressure Sodium 134 L Potassium 3.6 Chloride 101 Carbon Dioxide 26 Anion Gap 8.0 BUN 18 Creatinine 0.75 Est Cr Clr Drug Dosing 52.8 Est GFR ( Amer) 91.7 Est GFR (Non-Af Amer) 79.1 BUN/Creatinine Ratio 23.3 H Glucose 111 H Osmolality POC Lactic Acid Pankaj Calcium 8.8 Magnesium Total Bilirubin Direct Bilirubin AST ALT Alkaline Phosphatase Total Creatine Kinase Troponin I Total Protein Albumin Globulin Albumin/Globulin Ratio 25-OH Vitamin D Total TSH Specimen Hemolysis Urine Color Urine Appearance Urine pH Ur Specific [place] Urine Protein Urine Glucose (UA) Urine Ketones Urine Blood Urine Nitrite Urine Bilirubin Urine Urobilinogen Ur Leukocyte Esterase Urine Osmolality Ur Random Sodium Fld Lyme DNA (PCR) CSF Appearance CSF Color Xanthrochromic CSF WBC CSF RBC CSF Cell Count Tube # CSF Mononuclear WBCs CSF Polynuclear WBCs CSF Chemistry Tube # CSF Glucose CSF Total Protein Lyme Specimen Source CMV Specimen Source CMV Qnt PCR IU/mL CMV Qnt PCR log IU/mL EBV Source EBV DNA (PCR) Herpes Virus Source HSV I DNA PCR HSV II DNA PCR Varicella-Zoster Source VZV DNA (PCR) 01/19/19 08:01 WBC RBC Hgb Hct MCV MCH MCHC RDW Std Deviation RDW Coeff of Yamini Plt Count MPV Immature Gran % (Auto) Neut % (Auto) Lymph % (Auto) [place] % (Auto) Eos % (Auto) Baso % (Auto) Immature Gran # (Auto) Neut # (Auto) Lymph # (Auto) [place] # (Auto) Eos # (Auto) Baso # (Auto) PT INR APTT PTT Ratio VBG pH VBG pCO2 VBG pO2 VBG HCO3 VBG O2 Saturation VBG Base Excess Barometric Pressure Sodium 133 L Potassium 3.7 Chloride 100 Carbon Dioxide 24 Anion Gap 9.0 BUN 18 Creatinine 0.73 Est Cr Clr Drug Dosing 54.3 Est GFR ( Amer) 94.7 Est GFR (Non-Af Amer) 81.7 BUN/Creatinine Ratio 24.2 H Glucose 108 H Osmolality POC Lactic Acid Pankaj Calcium 9.0 Magnesium Total Bilirubin Direct Bilirubin AST ALT Alkaline Phosphatase Total Creatine Kinase Troponin I Total Protein Albumin Globulin Albumin/Globulin Ratio 25-OH Vitamin D Total TSH Specimen Hemolysis Urine Color Urine Appearance Urine pH Ur Specific [place] Urine Protein Urine Glucose (UA) Urine Ketones Urine Blood Urine Nitrite Urine Bilirubin Urine Urobilinogen Ur Leukocyte Esterase Urine Osmolality Ur Random Sodium Fld Lyme DNA (PCR) CSF Appearance CSF Color Xanthrochromic CSF WBC CSF RBC CSF Cell Count Tube # CSF Mononuclear WBCs CSF Polynuclear WBCs CSF Chemistry Tube # CSF Glucose CSF Total Protein Lyme Specimen Source CMV Specimen Source CMV Qnt PCR IU/mL CMV Qnt PCR log IU/mL EBV Source EBV DNA (PCR) Herpes Virus Source HSV I DNA PCR HSV II DNA PCR Varicella-Zoster Source VZV DNA (PCR) Chemistry 01/18/19 01/19/19 06:36 08:01 Sodium 134 L 133 L Potassium 3.6 3.7 Chloride 101 100 Carbon Dioxide 26 24 Anion Gap 8.0 9.0 BUN 18 18 Creatinine 0.75 0.73 Glucose 111 H 108 H Microbiology 01/15/19 11:19 Cerebral Spinal Fluid Acid Fast Bacilli Smear - Final 01/15/19 11:19 Cerebral Spinal Fluid Acid Fast Bacilli Culture - Pending 01/15/19 11:19 Cerebral Spinal Fluid Gram Stain - Final 01/15/19 11:19 Cerebral Spinal Fluid CSF Culture - Final No growth +HSV-1 in CSF Sample
--- NOTE | 2019-01-19 13:59 | Infectious Disease Progress Nt ---
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 I am not convinced the patient is developing worsening pneumonia or whether this represents initial findings. Patient also received short course of steroids upon admission which may be contributing. Would continue patient on acyclovir and doxycycline for now, have ordered procalcitonin to better help in determining whether patient truly has bacterial pneumonia. Discussed with hospitalist. Will follow.` (2) Pneumonia: Subjective Patient seen in follow-up for HSV encephalitis. Noted to have slight increase in white blood cell count today. Chest x-ray with possible slight increase in left basilar infiltrate. Remains afebrile, notes no increase in cough or shortness of breath. Review of Systems Review of Systems: All systems reviewed & are unremarkable except as noted in HPI & below Physical Exam Constitutional: WD/WN, vitals as above no acute distress Eyes: PERRL, conjunctivae normal, anicteric sclerae ENMT: external ear and nose normal, oropharynx normal Neck: trachea midline, no thyromegaly Respiratory: normal respiratory effort, lungs clear to auscultation normal percussion; no respiratory distress Cardiovascular: RRR, no murmur, no edema Gastrointestinal (Abdomen): normal bowel sounds, soft, nontender, no hepatosplenomegaly Percussion/Palpation: no abdominal mass Musculoskeletal: no cyanosis or clubbing, extremities motor strength 5/5 Skin: no rashes, warm and dry Neurologic: moves all extremities; no focal motor deficits Psychiatric: A+Ox3, euthymic affect Lymphatic: no cervical or axillary lymphadenopathy no inguinal lymphadenopathy Results & Data Vital Signs (Past 12 Hours) Vital Signs Temp Pulse Resp BP Pulse Ox 01/19/19 07:35 101 H 91 01/19/19 07:02 36.8 C 92 H 21 116/61 90 01/19/19 02:10 102 H 18 89 L Laboratory Results Short CBC 01/19/19 Range/Units 08:01 WBC 14.49 H (4.8-10.8) K/uL Hgb 11.9 L (12.0-16.0) g/dL Hct 34.0 L (37-47) % Plt Count 325 (130-400) K/uL BMP 01/19/19 08:01 Sodium 133 L Potassium 3.7 Chloride 100 Carbon Dioxide 24 BUN 18 Creatinine 0.73 Glucose 108 H Calcium 9.0 Diagnostic Findings Microbiology 01/15/19 11:19 Cerebral Spinal Fluid Acid Fast Bacilli Smear - Final 01/15/19 11:19 Cerebral Spinal Fluid Gram Stain - Final 01/15/19 11:19 Cerebral Spinal Fluid CSF Culture - Final No growth 01/11/19 09:15 Blood Blood Culture - Final No growth 01/11/19 09:07 Blood Blood Culture - Final No growth 01/15/19 11:19 Cerebral Spinal Fluid Cryptococcal Antigen - Final cc: ~ XR chest 1V portable CLINICAL HISTORY: Wheezing dyspnea COMPARISON STUDY: 01/14/2019 FINDINGS: Emphysematous change. Minimal parenchymal infiltrate left base slightly progressive from the prior study. Minimal atelectasis right base. IMPRESSION: 1. Emphysematous change. 2. Slightly progressive left basilar infiltrate. The above report was generated using voice recognition software. It may contain grammatical, syntax or spelling errors. Electronically signed by: José Miguel Rivas M.D. 01/18/2019 12:48 PM
[2019-01-19] MEDS: MONTELUKAST SODIUM 10 MG TABLET PO SCH (20:22)
[2019-01-19] MEDS: ROSUVASTATIN CALCIUM 20 MG TAB PO SCH (20:24)
[2019-01-20] MEDS: LEVALBUTEROL 1.25MG/0.5ML NEB INH SCH ×4 (02:25→18:50)
[2019-01-20] MEDS: ACYCLOVIR SOD 500 MG in DEXTROSE 5% 100 ML IV SCH ×3 (05:07→22:04)
[2019-01-20 07:42] LABS: BUN Creatinine Ratio 30.6 (10-20); Calcium 8.2 mg/dl (8.5-10.1); Creatinine Clr Calc Pharmacy 77.7 ml/min; Est GFR (African American) 110.6; Est GFR (Non-African American) 95.4; Potassium 3.8 mmol/L (3.5-5.1)
[2019-01-20] MEDS: FLUTICASONE/SALMETEROL (ADVAIR) 500/50 INH 14 PUFF INH SCH ×2 (07:51→20:50)
[2019-01-20] MEDS: POTASSIUM CHLORIDE 20 MEQ TABCR PO SCH (07:52)
[2019-01-20] MEDS: FUROSEMIDE 20 MG TAB PO SCH ×2 (07:53→18:24)
[2019-01-20] MEDS: ASCORBIC ACID 500 MG TAB PO SCH (07:54)
[2019-01-20] MEDS: levETIRAcetam 500 MG TAB PO SCH ×2 (07:54→20:50)
[2019-01-20] MEDS: BuPROPion SR 100 MG TABCR PO SCH (07:55)
[2019-01-20] MEDS: TAMSULOSIN HCL 0.4 MG CAP PO SCH (07:55)
[2019-01-20] MEDS: SODIUM CHLORIDE 1 GM TABLET PO SCH ×3 (07:55→20:50)
[2019-01-20] MEDS: guaiFENesin 600 MG TABCR PO SCH ×2 (07:56→20:50)
[2019-01-20] MEDS: CYANOCOBALAMIN 500 MCG TABLET (VITAMIN B-12) PO SCH (07:56)
[2019-01-20] MEDS: VENLAFAXINE HCL XR 150 MG CAPXR PO SCH (07:57)
[2019-01-20] MEDS: PANTOprazole 40 MG TAB PO SCH (07:57)
[2019-01-20] MEDS: DOCUSATE SODIUM 100 MG CAP PO SCH ×3 (09:04→20:50)
[2019-01-20] MEDS: THIAMINE HCL 100 MG in SYRINGE 9 ML IV SCH (09:04)
--- NOTE | 2019-01-20 13:48 | Hospitalist Progress Note ---
Date of Service January 20, 2019 Assessment & Plan (1) Altered mental status: resolved MRI brain suggested HSV encephalitis IV Acyclovir until 01/24. WBCs are rising, continue Doxycycline for now, Dr Zhang and Seferino are following (2) Encephalitis: Febrile illness with altered mental status. 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 Started acyclovir 10 mg / kg q 8 hrs on 01/14. Today is day # 2. EEG INTERPRETATION: "This is an abnormal EEG in a patient with altered mentation due to 1. Single right temporal epileptiform discharge suggestive of an underlying predisposition for seizures from this area, 2. Focal slowing in the right temporal head region suggestive of an underlying structural abnormality, 3. Diffuse background slowing suggestive of a non specific encephalopathy. " Neuro checks. Needs LP. Last dose of enoxaparin was evening of 01/13. Last dose of ASA was morning of 01/13. LP ordered under fluoroscopic guidance. In addition to routine studies, will order PCR's for HSV 1-2 PCR, HZV, CMV, EBV, Lyme + cryptococcal Ag. CSF paraneoplastic panel is a reference lab study and extremely expensive. Requires 2 ml CSF. Negative Radiology asked to obtain at least 12 ml CSF. HSV PCR +, 10 day course of Acyclovir WBCs are trending up, d/w ID Continue IV acyclovir. (3) Abnormal EEG: EEG INTERPRETATION: "This is an abnormal EEG in a patient with altered mentation due to 1. Single right temporal epileptiform discharge suggestive of an underlying predisposition for seizures from this area, 2. Focal slowing in the right temporal head region suggestive of an underlying structural abnormality, 3. Diffuse background slowing suggestive of a non specific encephalopathy. " No clinically overt seizure activity. 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 1200 ml fluid restriction + furosemide 20 mg BID recommended. (5) COPD (chronic obstructive pulmonary disease): Changed nebs to levalbuterol. Stopped prednisone because of delirium + suspected PARADICHLOROBENZENE MACHINE OPERATOR infection. (6) Pneumonia: Congested cough. Temp as high as 39.3. No infiltrates seen on initial CXR. Sputum ordered for gram stain, C&S; no specimen produced thus far. Blood cultures were done 4/26 - negative so far. CXR 01/14 - emphysematous changes, possible infiltrate left base. At risk for aspiration. (7) Nocturnal hypoxia: Continue supplemental O2. (8) Squamous cell carcinoma lung: Biopsy of endobronchial lesion 01/04/[address] Bowers. Path consistent with squamous cell Ca. Scheduled for PET scan 01/16- will need to be rescheduled. Scheduled for outpt MRI brain for staging. MRI performed 01/13 - no apparent mets. Outpatient follow-up with Dr. Bowers. (9) GERD (gastroesophageal reflux disease): Continue PPI. (10) Hypokalemia: Monitoring (11) Distal radius fracture, right: Nondisplaced fracture distal radius. Seen in consultation by Ortho. Nonsurgical management / splinting recommended. Continue calcium supplementation. Vitamin D level = 44. (12) Depression: Bupropion, venlafaxine, and trazodone all associated with hyponatremia. (13) DVT prophylaxis: Increased risk for VTE due to malignancy, age, and other factors. Received SQ enoxaparin, but need to hold for LP. Resume prophlactic anticoagulants 24 hours after LP. SCD's. Ambulate. (14) Discharge planning issues: Discharge plans to be determined. Last Dose Acyclovir on 01/24 evening May need skilled care. Case Management following. Internal Medicine follow-up with Dr. Kenzie Feliciano. Thoracic Medicine follow-up with Dr. Bowers. Orthopedics follow-up with Dr. aJffe 4 weeks after discharge. ROS-No Headache, No Visual Changes, No Nausea, No Vomiting, No Fever, No Chills, No Neck Pain or Stiffness, No Chest Pain, No Palpitations, No SOB, No GROSS, No Cough, No Sputum, No Wheezing, No Abdominal Pain, No Diarrhea, No Hematemesis, No Hemoptysis, No Unexpected Weight Loss, No Flank pain, No Melena, No Hematochezia, No Frequency, No Urgency, No Burning, No Hematuria, No Rashes, No Diaphoresis. Appetite is Normal Physical Exam Gen-AAO x 3, NAD, Afebrile Head-NCAT, EOMI, PERRLA, Anicteric Sclera, No Posterior Pharyngeal Erythema Neck-Supple, No JVD, No Thyromegaly, No Masses, No LAD, No Bruits Lungs-Wheezing Bilaterally, but improved today, Faint Rales, No Rhonchi, No Crepitus Chest-No S4, +S1, +S2, No S3, No Murmurs, No Rubs, No Gallops, No Ectopy Abdomen-Soft, Bowel Sounds Present, Non Tender, Non Distended, No Hepatomegaly, No Splenomegaly, No Palpable Masses, No Rebound, No Rigidity, No Guarding Musculoskeletal-Full Range of Motion Bilaterally, No CVAT Extremities-No Cyanosis, No Clubbing, No Edema Nuero-Cranial Nerves II-XII grossly intact, Motor WNL, DTRs WNL, Strength WNL, Non Focal Psych-Normal Mood Results & Data Vital Signs (Past 12 Hours) Vital Signs Temp Pulse Resp BP Pulse Ox 01/20/19 13:00 104 H 18 97 01/20/19 11:22 36.9 C 91 H 20 119/61 96 01/20/19 08:50 36.9 C 91 H 20 102/53 L 95 01/20/19 07:16 86 18 98 01/20/19 04:29 36.7 C 89 18 145/63 H 93 01/20/19 02:25 88 17 96 Current Diagnoses Malignant neoplasm of unspecified part of unspecified bronchus or lung (01/11/19) Hypo-osmolality and hyponatremia (01/11/19) Hypokalemia (01/11/19) Major depressive disorder, single episode, unspecified (01/11/19) Anxiety disorder, unspecified (01/11/19) Encephalitis and encephalomyelitis, unspecified (01/11/19) 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) Pneumonia, unspecified organism (01/11/19) Chronic obstructive pulmonary disease, unspecified (01/11/19) Gastro-esophageal reflux disease without esophagitis (01/11/19) Altered mental status, unspecified (01/11/19) Fever, unspecified (01/11/19) Abnormal electroencephalogram [EEG] (01/11/19) Unspecified fracture of the lower end of right radius, initial encounter for closed fracture (01/11/19) Encounter for administrative examinations, unspecified (01/11/19) Allergies No Known Allergies Allergy (Verified 01/11/19 09:15) Height/Weight/Isolation Height 5 ft 2 in Weight 51 kg Chemistry 01/19/19 01/20/19 08:01 06:41 Sodium 133 L 136 Potassium 3.7 3.8 Chloride 100 103 Carbon Dioxide 24 26 Anion Gap 9.0 6.0 BUN 18 16 Creatinine 0.73 0.51 L Glucose 108 H 100 H Microbiology 01/15/19 11:19 Cerebral Spinal Fluid Fungal Culture - Preliminary No yeast or fungus isolated - Report 1, Additional Report to Follow.
--- NOTE | 2019-01-20 14:32 | Progress Note ---
DATE: 01/20/2019 SUBJECTIVE: I am seeing the patient in followup of what is presumed to be HSV encephalitis with secondary seizure. She has not had any recurrent seizures. She admits to a mild persistent headache. OBJECTIVE: The patient is awake and alert, oriented. Speech and language are unremarkable. There is a mild flattening of the left nasolabial fold. Mild tremor on intention. 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 The patient is doing well. ID will dictate the duration of therapy. Continue Keppra. We will follow with you.
[2019-01-20] MEDS: ROSUVASTATIN CALCIUM 20 MG TAB PO SCH (20:50)
[2019-01-20] MEDS: MONTELUKAST SODIUM 10 MG TABLET PO SCH (20:50)
[2019-01-21] MEDS: LEVALBUTEROL 1.25MG/0.5ML NEB INH SCH (01:46)
[2019-01-21] MEDS: ACYCLOVIR SOD 500 MG in DEXTROSE 5% 100 ML IV SCH ×3 (05:36→20:26)
[2019-01-21] MEDS: LEVALBUTEROL HCL 1.25 MG/3 ML NEB INH SCH ×4 (06:11→20:13)
[2019-01-21 07:04] LABS: Basophils # (auto) 0.01 K/uL (0-0.2); Basophils % (auto) 0.1 %; Eosinophils # (auto) 0.19 K/uL (0-0.5); Eosinophils % (auto) 2.4 %; Hematocrit (blood only) 33.1 % (37-47); Hemoglobin 11.2 g/dL (12.0-16.0); Immature Granulocytes # (auto) 0.03 K/uL (0.00-0.02); Immature Granulocytes % (auto) 0.4 %; Lymphocytes # (auto) 0.93 K/uL (1.2-3.4); Lymphocytes % (auto) 11.6 %; Mean Corpuscular Hgb Conc 33.8 g/dL (32-36); Mean Corpuscular Volume 92.2 fL (80-100); Mean Platelet Volume 7.5 fL (7.4-10.4); Monocytes # (auto) 0.56 K/uL (0.11-0.59); Neutrophils # (auto) 6.32 K/uL (1.4-6.5); Neutrophils % (auto) 78.5 %; Platelet Count 294 K/uL (130-400); RDW Coefficient of Variation 14.8 % (11.5-14.5); Red Blood Count 3.59 M/uL (4.2-5.4); White Blood Count 8.04 K/uL (4.8-10.8)
[2019-01-21 07:39] LABS: Albumin Globulin Ratio 0.7 (0.9-2); Albumin Level 2.3 gm/dl (3.4-5.0); BUN Creatinine Ratio 20.8 (10-20); Bilirubin,Total 0.4 mg/dl (0.2-1); Calcium 8.6 mg/dl (8.5-10.1); Est GFR (African American) 105.4; Est GFR (Non-African American) 90.9; Globulin 3.2 gm/dl (2.5-4.0); Total Protein 5.5 gm/dl (6.4-8.2)
[2019-01-21] MEDS ORDERED: LEVALBUTEROL HCL 0.63 MG/3 ML NEB INH SCH (08:00)
[2019-01-21] MEDS: FLUTICASONE/SALMETEROL (ADVAIR) 500/50 INH 14 PUFF INH SCH ×2 (08:03→20:29)
[2019-01-21] MEDS: CYANOCOBALAMIN 500 MCG TABLET (VITAMIN B-12) PO SCH (08:04)
[2019-01-21] MEDS: POTASSIUM CHLORIDE 20 MEQ TABCR PO SCH (08:04)
[2019-01-21] MEDS: THIAMINE HCL 100 MG in SYRINGE 9 ML IV SCH (08:04)
[2019-01-21] MEDS: DOCUSATE SODIUM 100 MG CAP PO SCH ×2 (08:04→20:30)
[2019-01-21] MEDS: BuPROPion SR 100 MG TABCR PO SCH (08:04)
[2019-01-21] MEDS: TAMSULOSIN HCL 0.4 MG CAP PO SCH (08:05)
[2019-01-21] MEDS: guaiFENesin 600 MG TABCR PO SCH ×2 (08:05→20:30)
[2019-01-21] MEDS: levETIRAcetam 500 MG TAB PO SCH ×2 (08:05→20:30)
[2019-01-21] MEDS: SODIUM CHLORIDE 1 GM TABLET PO SCH ×2 (08:05→12:47)
[2019-01-21] MEDS: PANTOprazole 40 MG TAB PO SCH (08:05)
[2019-01-21] MEDS: FUROSEMIDE 20 MG TAB PO SCH ×2 (08:06→17:13)
[2019-01-21] MEDS: VENLAFAXINE HCL XR 150 MG CAPXR PO SCH (08:06)
--- NOTE | 2019-01-21 11:08 | Infectious Disease Progress Nt ---
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 would hold additional abx. continue acyclovir as planned, continue supportive care. (2) Pneumonia: Subjective pt ambulating in [place] with PT was doing well initially then had some fatigue and weakened gait, was brought back to bed. was ambulating on RA, O2 was 87-89% when brought back to bed, O2 placed and she quickly was 95-96%, was tachycardic in 110's but quickly resolved once she returened to her bed. She denies any pain, just felt weak. Remains on acyclovir - tolerating well. All remaining cultures negative and final. had increased wbc over weekend, now improved to 8. p roclacitonin negative as well. no cp, sob, min cough. no abd pain, no n/v/d. no gu symptoms. all remaining ros reviewed and are negative. Review of Systems Review of Systems: All systems reviewed & are unremarkable except as noted in HPI & below Physical Exam Constitutional: WD/WN, vitals as above well developed, + ill appearing and + lethargic Eyes: PERRL, conjunctivae normal, anicteric sclerae ENMT: Mouth: no lip abnormality, no oropharynx abnormality and no oral mucosal abnormality Neck: normal visual inspection Respiratory: normal respiratory effort, lungs clear to auscultation Cardiovascular: RRR, no murmur, no edema Gastrointestinal (Abdomen): normal bowel sounds, soft, nontender, no hepatosplenomegaly Musculoskeletal: no cyanosis or clubbing, extremities motor strength 5/5 Head/Neck/Chest: neck supple Skin: no rashes, warm and dry Neurologic: normal touch/pain/proprioception and moves all extremities Speech / Cognition: normal speech Psychiatric: A+Ox3, euthymic affect Orientation: + not alert Speech: normal rate/rhythm/volume of speech Results & Data Vital Signs (Past 12 Hours) Vital Signs Temp Pulse Resp BP Pulse Ox 01/21/19 07:19 97 H 16 94 01/21/19 07:00 36.9 C 99 H 18 119/56 L 94 01/21/19 05:00 36.9 C 89 18 127/63 94 01/21/19 01:46 84 16 96 01/20/19 23:16 36.9 C 108 H 20 148/72 H 94 Laboratory Results Pending at discharge 01/15/19 08:43 Non-Roofing Superintendent Cytology [PTH] Routine Procedures Closed reduction of fracture with internal fixation, femur (05/31/12) Colonoscopy (05/15/12) Injection or infusion of other therapeutic or prophylactic substance (08/12/13) Other local excision or destruction of lesion of joint, shoulder (02/03/11) Rotator cuff repair (02/03/11)
[2019-01-21] MEDS: ASCORBIC ACID 500 MG TAB PO SCH (12:47)
[2019-01-21] MEDS: ACETAMINOPHEN 325 MG TAB PO PRN (12:49)
--- NOTE | 2019-01-21 13:39 | Hospitalist Progress Note ---
Date of Service January 21, 2019 Assessment & Plan (1) Altered mental status: resolved MRI brain suggested HSV encephalitis IV Acyclovir until 01/24. US guided peripheral today 5 WBCs are normal, continue Doxycycline for now, Dr Zhang and Seferino are following (2) Encephalitis: Febrile illness with altered mental status. 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 Started acyclovir 10 mg / kg q 8 hrs on 01/14. Today is day # 2. EEG INTERPRETATION: "This is an abnormal EEG in a patient with altered mentation due to 1. Single right temporal epileptiform discharge suggestive of an underlying predisposition for seizures from this area, 2. Focal slowing in the right temporal head region suggestive of an underlying structural abnormality, 3. Diffuse background slowing suggestive of a non specific encephalopathy. " Neuro checks. s/p LP. Last dose of enoxaparin was evening of 01/13. Last dose of ASA was morning of 01/13. LP ordered under fluoroscopic guidance. In addition to routine studies, will order PCR's for HSV 1-2 PCR, HZV, CMV, EBV, Lyme + cryptococcal Ag. CSF paraneoplastic panel is a reference lab study and extremely expensive. Requires 2 ml CSF. Negative Radiology asked to obtain at least 12 ml CSF. HSV PCR +, 10 day course of Acyclovir Continue IV acyclovir. (3) Abnormal EEG: EEG INTERPRETATION: "This is an abnormal EEG in a patient with altered mentation due to 1. Single right temporal epileptiform discharge suggestive of an underlying predisposition for seizures from this area, 2. Focal slowing in the right temporal head region suggestive of an underlying structural abnormality, 3. Diffuse background slowing suggestive of a non specific encephalopathy. " No clinically overt seizure activity. 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 1200 ml fluid restriction + furosemide 20 mg BID recommended. (5) COPD (chronic obstructive pulmonary disease): Changed nebs to levalbuterol. Stopped prednisone because of delirium + suspected SUBMARINE ELEMENT COORDINATOR infection. (6) Pneumonia: Congested cough. Temp as high as 39.3. No infiltrates seen on initial CXR. Sputum ordered for gram stain, C&S; no specimen produced thus far. Blood cultures were done 01/11 - negative so far. CXR 01/14 - emphysematous changes, possible infiltrate left base. At risk for aspiration. (7) Nocturnal hypoxia: Continue supplemental O2. (8) Squamous cell carcinoma lung: Biopsy of endobronchial lesion 01/04/[address] Bowers. Path consistent with squamous cell Ca. Scheduled for PET scan 01/16- will need to be rescheduled. Scheduled for outpt MRI brain for staging. MRI performed 01/13 - no apparent mets. Outpatient follow-up with Dr. Bowers. (9) GERD (gastroesophageal reflux disease): Continue PPI. (10) Hypokalemia: Monitoring (11) Distal radius fracture, right: Nondisplaced fracture distal radius. Seen in consultation by Ortho. Nonsurgical management /splinting recommended. Continue calcium supplementation. Vitamin D level = 44. (12) Depression: Bupropion, venlafaxine, and trazodone all associated with hyponatremia. (13) DVT prophylaxis: Increased risk for VTE due to malignancy, age, and other factors. Resume prophylactic anticoagulants SCD's. Ambulate. (14) Discharge planning issues: Discharge plans to be determined. Last Dose Acyclovir on 01/24 evening May need skilled care. Case Management following. Internal Medicine follow-up with Dr. Kenzie Feliciano. Thoracic Medicine follow-up with Dr. Bowers. Orthopedics follow-up with Dr. Jaffe 4 weeks after discharge. ROS-No Headache, No Visual Changes, No Nausea, No Vomiting, No Fever, No Chills, No Neck Pain or Stiffness, No Chest Pain, No Palpitations, No SOB, No GROSS, No Cough, No Sputum, No Wheezing, No Abdominal Pain, No Diarrhea, No Hematemesis, No Hemoptysis, No Unexpected Weight Loss, No Flank pain, No Melena, No Hematochezia, No Frequency, No Urgency, No Burning, No Hematuria, No Rashes, No Diaphoresis. Appetite is Normal Physical Exam Gen-AAO x 3, NAD, Afebrile Head-NCAT, EOMI, PERRLA, Anicteric Sclera, No Posterior Pharyngeal Erythema Neck-Supple, No JVD, No Thyromegaly, No Masses, No LAD, No Bruits Lungs-Wheezing Bilaterally, but improved today, Faint Rales, No Rhonchi, No Crepitus Chest-No S4, +S1, +S2, No S3, No Murmurs, No Rubs, No Gallops, No Ectopy Abdomen-Soft, Bowel Sounds Present, Non Tender, Non Distended, No Hepatomegaly, No Splenomegaly, No Palpable Masses, No Rebound, No Rigidity, No Guarding Musculoskeletal-Full Range of Motion Bilaterally, No CVAT Extremities-No Cyanosis, No Clubbing, No Edema Nuero-Cranial Nerves II-XII grossly intact, Motor WNL, DTRs WNL, Strength WNL, Non Focal Psych-Normal Mood Results & Data Vital Signs (Past 12 Hours) Vital Signs Temp Pulse Resp BP Pulse Ox 01/21/19 11:43 36.5 C 92 H 18 134/77 95 01/21/19 07:19 97 H 16 94 01/21/19 07:00 36.9 C 99 H 18 119/56 L 94 01/21/19 05:00 36.9 C 89 18 127/63 94 01/21/19 01:46 84 16 96 Current Diagnoses Herpesviral encephalitis (01/11/19) Malignant neoplasm of unspecified part of unspecified bronchus or lung (01/11/19) Hypo-osmolality and hyponatremia (01/11/19) Hypokalemia (01/11/19) Major depressive disorder, single episode, unspecified (01/11/19) Anxiety disorder, unspecified (01/11/19) Encephalitis and encephalomyelitis, unspecified (01/11/19) 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) Pneumonia, unspecified organism (01/11/19) Chronic obstructive pulmonary disease, unspecified (01/11/19) Gastro-esophageal reflux disease without esophagitis (01/11/19) Altered mental status, unspecified (01/11/19) Fever, unspecified (01/11/19) Abnormal electroencephalogram [EEG] (01/11/19) Unspecified fracture of the lower end of right radius, initial encounter for closed fracture (01/11/19) Encounter for administrative examinations, unspecified (01/11/19) Allergies No Known Allergies Allergy (Verified 01/11/19 09:15) Height/Weight/Isolation Height 5 ft 2 in Weight 50 kg Chemistry 01/20/19 01/21/19 06:41 06:56 Sodium 136 136 Potassium 3.8 4.0 Chloride 103 102 Carbon Dioxide 26 27 Anion Gap 6.0 7.0 BUN 16 12 Creatinine 0.51 L 0.59 L Glucose 100 H 107 H Microbiology 01/15/19 11:19 Cerebral Spinal Fluid Acid Fast Bacilli Smear - Final 01/15/19 11:19 Cerebral Spinal Fluid Acid Fast Bacilli Culture - Preliminary No Acid-Fast Bacilli Isolated - Report 1, Additional Report to Follow. 01/15/19 11:19 Cerebral Spinal Fluid Fungal Culture - Preliminary No yeast or fungus isolated - Report 1, Additional Report to Follow.
--- NOTE | 2019-01-21 16:22 | Neurology Progress Note ---
Date of Service January 21, 2019 Assessment & Plan (1) Altered mental status: 1. LP- preformed - elevated WBC and protein 2. Acyclovir 500 mg q8 hours- ID to direct length of treatment 3. ID - for further recommendation 4. medical management per primary team 5. EEG- seizure focus - Keppra started 750 mg BID- which may contribute to current lethargy-decreased to 500 mg BID is tolerating well 6. 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 labs for Lyme PCR, EBV, HSV, +HSV 8. PT/OT for discharge needs 9. care mgt for facilitating [facility] to [facility] prior to return to her apartment 10. bone scan done as out patient follow up in neurology 4 weeks after discharge Elise Aguiar PAC schedule will sign off for now but will be available as needed. Supervising Physician Co-Signing Physician Notes I have discussed above patient with Dr Elise Horner, neurology Agree, continue keppra, see us as outpt. ANTHONY Horner MD Yamilet Domingo is a 73 year old female who presents to the ED with altered mental status. She was recently admitted to [facility] 01/03 through 01/05 for observation after she developed bleeding during an outpatient bronchoscopy. During that bronchoscopy, patient was found to have a left upper lobe lesion however given friability, there was unable to be biopsied at that time. Dr. 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 She was discharged on a long prednisone taper and Levaquin for [address] Bowers was planning a brain MRI and PET scan for staging. She had developing some confusion about 4 days ago which got progressively worse. She also suffered a fall injuring her right wrist. Her labs show sodium 125. She was a smoker but quit 3 months ago. Her family contact is bedside and states she thinks she is doing well today. She is bored with being in the hospital and disappointed that she couldn't go to the [facility] today. denies CP, worsening SOB, abdominal pain, one sided weakness, numbness tingling, N, V, vision changes. 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 triceps 4+/5 hip flex 4+/5 bilaterally neuro: oriented to self place and family in room Results & Data Vital Signs (Past 12 Hours) Vital Signs Temp Pulse Resp BP Pulse Ox 01/21/19 15:31 36.5 C 111 H 18 126/49 L 92 01/21/19 13:39 99 H 16 95 01/21/19 11:43 36.5 C 92 H 18 134/77 95 01/21/19 07:19 97 H 16 94 01/21/19 07:00 36.9 C 99 H 18 119/56 L 94 01/21/19 05:00 36.9 C 89 18 127/63 94 Laboratory Results Abnormal lab results 01/21/19 01/21/19 Range/Units 06:56 06:56 RBC 3.59 L (4.2-5.4) M/uL Hgb 11.2 L (12.0-16.0) g/dL Hct 33.1 L (37-47) % RDW Std Deviation 50.0 H (36.4-46.3) fL RDW Coeff of Yamini 14.8 H (11.5-14.5) % Immature Gran # (Auto) 0.03 H (0.00-0.02) K/uL Lymph # (Auto) 0.93 L (1.2-3.4) K/uL Creatinine 0.59 L (0.6-1.2) mg/dl BUN/Creatinine Ratio 20.8 H (10-20) Glucose 107 H (70-99) mg/dl Total Protein 5.5 L (6.4-8.2) gm/dl Albumin 2.3 L (3.4-5.0) gm/dl Albumin/Globulin Ratio 0.7 L (0.9-2) Diagnostic Findings no new imaging
[2019-01-21] MEDS: HEPARIN SOD 5,000 UNIT/0.5 ML VIAL SQ SCH ×2 (17:13→21:35)
--- NOTE | 2019-01-21 17:22 | Nephrology Progress Note ---
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 Na 136 today. admission urine studies consistent with SIADH. Likely triggers of ADH release include pain, infection multiple antidepressants and cancer. getting some D5 infuisions w/ abtx recommend: -reduced salt tablets 1 g 2 (not 3) times daily -Continue Po lasix 20mg bid. Monitor input/output -Fluid restriction of 1500ml daily -Monitor bmp daily while in house >at hospital d/c recommend bmp weekly x 6 recommend d/c on above salt tab, fluid limit, diuretics, K as below -recommend ckd clinic f/u in 4-6 wks for chronic hyponatremia from siadh to see if we can wean down some of above regimen safely (2) Altered mental status: Likely in setting of viral encephalitis given CSF results. Mental status has improved with treatment for the infection and improving electrolytes. Patient on acyclovir per ID and primary team. Patient is getting 300ml of D5 with acyclovir. If Na continues to drop, will ask pharmacy to mix the acyclovir in normal saline. (3) Hypokalemia: Due to renal potassium wasting in setting of Lasix. K 4.0 today. Continue potassium chloride to 60 mEq daily. Subjective seen on rounds this am about 0820; for possible d/c to [facility] later today w/ IV abtx for another 3 days. tolerating lasix and salt tabs and FR but salt tabs do upset stomach at times. no c/o muscoloskeletal pain or edema or issues voiding; does not wear 02 at home she states Review of Systems Review of Systems: All systems reviewed & are unremarkable except as noted in HPI & below Constitutional: + fatigue and + weakness Eyes: pain R orbit as I walk in room she had just hit herself in the eye socke t tryint to adjust bed Physical Exam Constitutional: well developed and + thin [id number], appears appropriate w/ responses, borderline cachectic Eyes: EOM intact bilaterally ENMT: Ears: no external ear abnormality Nose: no external nose abnormality Mouth: + dry oral mucous membranes Neck: no nuchal rigidity Respiratory: normal respiratory effort Auscultation: + crackles (demar R lung) and + wheezes Cardiovascular: Rate/Rhythm: + tachycardic (in 90s distant HS) Extremities: no edema Gastrointestinal (Abdomen): Inspection/Auscultation: normal bowel sounds Percussion/Palpation: abdomen soft; abdomen nontender Musculoskeletal: Extremities: strength 5/5 throughout R wrist in splint Skin: no rashes, warm and dry Neurologic: lin, fluent speech, no tremor Results & Data Vital Signs (Past 12 Hours) Vital Signs Temp Pulse Resp BP Pulse Ox 01/21/19 15:31 36.5 C 111 H 18 126/49 L 92 01/21/19 13:39 99 H 16 95 01/21/19 11:43 36.5 C 92 H 18 134/77 95 01/21/19 07:19 97 H 16 94 01/21/19 07:00 36.9 C 99 H 18 119/56 L 94 Laboratory Results Abnormal lab results 01/21/19 01/21/19 Range/Units 06:56 06:56 RBC 3.59 L (4.2-5.4) M/uL Hgb 11.2 L (12.0-16.0) g/dL Hct 33.1 L (37-47) % RDW Std Deviation 50.0 H (36.4-46.3) fL RDW Coeff of Yamini 14.8 H (11.5-14.5) % Immature Gran # (Auto) 0.03 H (0.00-0.02) K/uL Lymph # (Auto) 0.93 L (1.2-3.4) K/uL Creatinine 0.59 L (0.6-1.2) mg/dl BUN/Creatinine Ratio 20.8 H (10-20) Glucose 107 H (70-99) mg/dl Total Protein 5.5 L (6.4-8.2) gm/dl Albumin 2.3 L (3.4-5.0) gm/dl Albumin/Globulin Ratio 0.7 L (0.9-2)
[2019-01-21] MEDS: MONTELUKAST SODIUM 10 MG TABLET PO SCH (20:30)
[2019-01-21] MEDS: ROSUVASTATIN CALCIUM 20 MG TAB PO SCH (20:30)
[2019-01-22] MEDS: LEVALBUTEROL HCL 1.25 MG/3 ML NEB INH SCH ×4 (02:01→19:25)
[2019-01-22] MEDS: ACYCLOVIR SOD 500 MG in DEXTROSE 5% 100 ML IV SCH ×3 (06:07→20:30)
[2019-01-22] MEDS: HEPARIN SOD 5,000 UNIT/0.5 ML VIAL SQ SCH ×3 (06:11→22:37)
[2019-01-22 07:27] LABS: Basophils # (auto) 0.01 K/uL (0-0.2); Basophils % (auto) 0.1 %; Eosinophils # (auto) 0.08 K/uL (0-0.5); Eosinophils % (auto) 0.8 %; Hematocrit (blood only) 32.7 % (37-47); Hemoglobin 11.1 g/dL (12.0-16.0); Immature Granulocytes # (auto) 0.03 K/uL (0.00-0.02); Immature Granulocytes % (auto) 0.3 %; Lymphocytes # (auto) 0.79 K/uL (1.2-3.4); Lymphocytes % (auto) 8.1 %; Mean Corpuscular Hgb Conc 33.9 g/dL (32-36); Mean Corpuscular Volume 92.4 fL (80-100); Mean Platelet Volume 7.8 fL (7.4-10.4); Monocytes # (auto) 0.57 K/uL (0.11-0.59); Monocytes % (auto) 5.8 %; Neutrophils # (auto) 8.29 K/uL (1.4-6.5); Neutrophils % (auto) 84.9 %; Platelet Count 341 K/uL (130-400); RDW Coefficient of Variation 14.7 % (11.5-14.5); Red Blood Count 3.54 M/uL (4.2-5.4); White Blood Count 9.77 K/uL (4.8-10.8)
[2019-01-22] MEDS: THIAMINE HCL 100 MG in SYRINGE 9 ML IV SCH (08:16)
[2019-01-22] MEDS: POTASSIUM CHLORIDE 20 MEQ TABCR PO SCH (08:17)
[2019-01-22] MEDS: levETIRAcetam 500 MG TAB PO SCH ×2 (08:17→20:33)
[2019-01-22] MEDS: TAMSULOSIN HCL 0.4 MG CAP PO SCH (08:18)
[2019-01-22] MEDS: ACETAMINOPHEN 325 MG TAB PO PRN ×3 (08:18→20:30)
[2019-01-22] MEDS: ASCORBIC ACID 500 MG TAB PO SCH (08:18)
[2019-01-22] MEDS: CYANOCOBALAMIN 500 MCG TABLET (VITAMIN B-12) PO SCH (08:18)
[2019-01-22] MEDS: FUROSEMIDE 20 MG TAB PO SCH ×2 (08:19→16:00)
[2019-01-22] MEDS: DOCUSATE SODIUM 100 MG CAP PO SCH ×2 (08:19→20:31)
[2019-01-22] MEDS: PANTOprazole 40 MG TAB PO SCH (08:20)
[2019-01-22] MEDS: BuPROPion SR 100 MG TABCR PO SCH (08:20)
[2019-01-22] MEDS: SODIUM CHLORIDE 1 GM TABLET PO SCH ×2 (08:20→20:32)
[2019-01-22] MEDS: guaiFENesin 600 MG TABCR PO SCH ×2 (08:20→20:31)
[2019-01-22] MEDS: VENLAFAXINE HCL XR 150 MG CAPXR PO SCH (08:20)
[2019-01-22] MEDS: FLUTICASONE/SALMETEROL (ADVAIR) 500/50 INH 14 PUFF INH SCH ×2 (08:20→20:34)
--- NOTE | 2019-01-22 12:49 | Discharge Summary ---
Date of Service January 22, 2019 Admission HPI Per Admitting Provider 73-year-old female who presents to the ED with altered mental status. Patient was recently admitted to [facility] 01/03 through 01/05 for observation after she developed bleeding during an outpatient bronchoscopy. During that bronchoscopy, patient was found to have a left upper lobe lesion however given friability, there was unable to be biopsied at that time. Patient was then taken back to the OR with Dr. Bowers and had a repeat bronchoscopy with successful biopsy of the lesion. Pathology has subsequently showed squamous cell carcinoma. Patient was discharged on a long prednisone taper and Levaquin for 7 days. Patient was seen by Dr. Bowers as an outpatient yesterday who was planning on brain MRI and PET scan. History is currently somewhat limited from the patient secondary to her mental status. Per her sister, she noted the patient developing some confusion about 4 days ago. This is been progressively getting worse. Last night, patient was up for most of the night and did suffer a fall injuring her right wrist. No reported strokelike symptoms or loss of consciousness. Patient denies chest pain. Reports her breathing is currently at baseline. She denies abdominal pain, nausea, vomiting, diarrhea. No fevers or chills. She denies any urinary symptoms. In the ED, labs show sodium 125. Other labs are unremarkable, vital signs are stable. Head CT is negative for acute findings. Admission Exam Per Admitting Provider Constitutional: WD/WN, vitals as above Eyes: PERRL, conjunctivae normal, anicteric sclerae ENMT: external ear and nose normal, oropharynx normal Respiratory: normal respiratory effort; no respiratory distress Auscultation: + diminished lung sounds and + wheezes (Bilateral, scattered, end expiratory) Cardiovascular: Rate/Rhythm: regular rate and regular rhythm Vessels: normal peripheral pulses Extremities: no edema Gastrointestinal (Abdomen): normal bowel sounds, soft, nontender, no hepatosplenomegaly Musculoskeletal: no cyanosis or clubbing, extremities motor strength 5/5 Extremities: + wrist abnormality (Ecchymosis extending over the dorsal aspect of the right hand with distal radius point tenderness) Right (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) Skin: no rashes, warm and dry Neurologic: PERRL, EOMI, accommodation nl, no face palsy, no dysarthria Psychiatric: Orientation: oriented to person and oriented to place; + not alert (Slow to respond at times, occasionally dozing off during exam) and + not oriented to time (States year is 2010, day of the week , correct month) Affect: euthymic affect Insight: + limited insight Principal Diagnosis HSV Encephalitis Hyponatremia AMS HLD Distal Radius Fracture Discharge Exam ROS-No Headache, No Visual Changes, No Nausea, No Vomiting, No Fever, No Chills, No Neck Pain or Stiffness, No Chest Pain, No Palpitations, No SOB, No GROSS, No Cough, No Sputum, No Wheezing, No Abdominal Pain, No Diarrhea, No Hematemesis, No Hemoptysis, No Unexpected Weight Loss, No Flank pain, No Melena, No Hematochezia, No Frequency, No Urgency, No Burning, No Hematuria, No Rashes, No Diaphoresis. Appetite is Normal Physical Exam Gen-AAO x 3, NAD, Afebrile Head-NCAT, EOMI, PERRLA, Anicteric Sclera, No Posterior Pharyngeal Erythema Neck-Supple, No JVD, No Thyromegaly, No Masses, No LAD, No Bruits Lungs-Wheezing Bilaterally, but improved today, Faint Rales, No Rhonchi, No Crepitus Chest-No S4, +S1, +S2, No S3, No Murmurs, No Rubs, No Gallops, No Ectopy Abdomen-Soft, Bowel Sounds Present, Non Tender, Non Distended, No Hepatomegaly, No Splenomegaly, No Palpable Masses, No Rebound, No Rigidity, No Guarding Musculoskeletal-Full Range of Motion Bilaterally, No CVAT Extremities-No Cyanosis, No Clubbing, No Edema Nuero-Cranial Nerves II-XII grossly intact, Motor WNL, DTRs WNL, Strength WNL, Non Focal Psych-Normal Mood Discharge Data Allergies Allergy/AdvReac Type Severity Reaction Status Date / Time No Known Allergies Allergy Verified 01/11/19 09:15 Consultations 01/11/19 11:36 ED Decision to Admit Stat 01/11/19 14:04 Consult Orthopedic Surgery Routine 01/11/19 14:18 Consult Case Management - Discharge Planning Routine Consult Nephrology Routine 01/14/19 08:33 Consult Infectious Diseases Routine 01/14/19 08:34 Consult Neurology Routine Ordered Studies 01/11/19 08:50 CT head/brain wo con Stat 01/13/19 14:53 MR brain wo/w con Routine 01/15/19 08:45 FL lumbar puncture diagnostic Routine 01/16/19 21:10 CT head/brain wo con Routine Current Diagnoses Herpesviral encephalitis (01/11/19) Malignant neoplasm of unspecified part of unspecified bronchus or lung (01/11/19) Hypo-osmolality and hyponatremia (01/11/19) Hypokalemia (01/11/19) Major depressive disorder, single episode, unspecified (01/11/19) Anxiety disorder, unspecified (01/11/19) Encephalitis and encephalomyelitis, unspecified (01/11/19) 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) Pneumonia, unspecified organism (01/11/19) Chronic obstructive pulmonary disease, unspecified (01/11/19) Gastro-esophageal reflux disease without esophagitis (01/11/19) Altered mental status, unspecified (01/11/19) Fever, unspecified (01/11/19) Abnormal electroencephalogram [EEG] (01/11/19) Unspecified fracture of the lower end of right radius, initial encounter for closed fracture (01/11/19) Encounter for administrative examinations, unspecified (01/11/19) Allergies No Known Allergies Allergy (Verified 01/11/19 09:15) Height/Weight/Isolation Height 5 ft 2 in Weight 49.3 kg Chemistry 01/21/19 06:56 Sodium 136 Potassium 4.0 Chloride 102 Carbon Dioxide 27 Anion Gap 7.0 BUN 12 Creatinine 0.59 L Glucose 107 H Microbiology 01/15/19 11:19 Cerebral Spinal Fluid Acid Fast Bacilli Smear - Final 01/15/19 11:19 Cerebral Spinal Fluid Acid Fast Bacilli Culture - Preliminary No Acid-Fast Bacilli Isolated - Report 1, Additional Report to Follow. Hospital Course (1) Altered mental status: resolved MRI brain suggested HSV encephalitis IV Acyclovir until 01/24. US guided peripheral placed 5/6 WBCs are normal, continue Doxycycline until 01/24 (2) Encephalitis: Febrile illness with altered mental status. 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 Started acyclovir 10 mg / kg q 8 hrs on 01/14. Today is day # 2. EEG INTERPRETATION: "This is an abnormal EEG in a patient with altered mentation due to 1. Single right temporal epileptiform discharge suggestive of an underlying predisposition for seizures from this area, 2. Focal slowing in the right temporal head region suggestive of an underlying structural abnormality, 3. Diffuse background slowing suggestive of a non specific encephalopathy. " Last dose of enoxaparin was evening of 01/13. Last dose of ASA was morning of 01/13. SC Heparin per SN[facility] Dr TANG was done under fluoroscopic guidance. HSV PCR +, 10 day course of Acyclovir (3) Abnormal EEG: EEG INTERPRETATION: "This is an abnormal EEG in a patient with altered mentation due to 1. Single right temporal epileptiform discharge suggestive of an underlying predisposition for seizures from this area, 2. Focal slowing in the right temporal head region suggestive of an underlying structural abnormality, 3. Diffuse background sl owing suggestive of a non specific encephalopathy. " No clinically overt seizure activity. 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 1200 ml fluid restriction + furosemide 20 mg BID recommended. (5) COPD (chronic obstructive pulmonary disease): Monitor (6) Pneumonia: Congested cough. Chronic Seasonal Allergies per patient Temp as high as 39.3. No infiltrates seen on initial CXR. Sputum ordered for gram stain, C&S; no specimen produced thus far. Blood cultures were done 01/11 - negative CXR 01/14 - emphysematous changes, possible infiltrate left base. At risk for aspiration. (7) Nocturnal hypoxia: Continue supplemental O2. (8) Squamous cell carcinoma lung: Biopsy of endobronchial lesion 01/04/[address] Bowers. Path consistent with squamous cell Ca. PET to be rescheduled. MRI performed 01/13 - no apparent mets. Outpatient follow-up with Dr. Bowers. (9) GERD (gastroesophageal reflux disease): Continue PPI. (10) Hypokalemia: Monitoring (11) Distal radius fracture, right: Nondisplaced fracture distal radius. Seen in consultation by Ortho. Nonsurgical management /splinting recommended. Continue calcium supplementation. Vitamin D level = 44. (12) Depression: Bupropion, venlafaxine, and trazodone all associated with hyponatremia. (13) DVT prophylaxis: Increased risk for VTE due to malignancy, age, and other factors. Resume prophylactic anticoagulants SCD's. Ambulate. (14) Discharge planning issues: Discharge to snf for iv acyclovir Last Dose Acyclovir on 01/24 evening Internal Medicine follow-up with Dr. Kenzie Feliciano. Thoracic Medicine follow-up with Dr. Bowers. Orthopedics follow-up with Dr. Jaffe 4 weeks after discharge. ROS-No Headache, No Visual Changes, No Nausea, No Vomiting, No Fever, No Chills, No Neck Pain or Stiffness, No Chest Pain, No Palpitations, No SOB, No GROSS, No Cough, No Sputum, No Wheezing, No Abdominal Pain, No Diarrhea, No Hematemesis, No Hemoptysis, No Unexpected Weight Loss, No Flank pain, No Melena, No Hematochezia, No Frequency, No Urgency, No Burning, No Hematuria, No Rashes, No Diaphoresis. Appetite is Normal Physical Exam Gen-AAO x 3, NAD, Afebrile Head-NCAT, EOMI, PERRLA, Anicteric Sclera, No Posterior Pharyngeal Erythema Neck-Supple, No JVD, No Thyromegaly, No Masses, No LAD, No Bruits Lungs-Wheezing Bilaterally, but improved today, Faint Rales, No Rhonchi, No Crepitus Chest-No S4, +S1, +S2, No S3, No Murmurs, No Rubs, No Gallops, No Ectopy Abdomen-Soft, Bowel Sounds Present, Non Tender, Non Distended, No Hepatomegaly, No Splenomegaly, No Palpable Masses, No Rebound, No Rigidity, No Guarding Musculoskeletal-Full Range of Motion Bilaterally, No CVAT Extremities-No Cyanosis, No Clubbing, No Edema Nuero-Cranial Nerves II-XII grossly intact, Motor WNL, DTRs WNL, Strength WNL, Non Focal Psych-Normal Mood Total Time Total Time Spent Total Time Spent (In Minutes): 55 mins Total Time Includes: Examination of the Patient, Discharge Planning, Medication Reconciliation and Communication With Other Providers Discharge Plan Discharge Items Patient Disposition: Transfer Senior Living Fac Reason For Visit: HYPONATREMIA Discharge Diagnosis: HSV Encephalitis Hyponatremia AMS HLD Distal Radius Fracture Condition: Good Discharge Goals: Decrease discomfort and Improve function Activity: Resume your previous activity Lifting: Gradually increase as tolerated Bathing: No limitations Exercise/Sports: None Driving/Machine Use: No limitations Weightbearing: Left weightbearing and Right weightbearing Non-emergency contact: Primary Care Provider, Surgeon and Mobile Homes Repairer Call non-emergency contact if: you have any medication questions and your symptoms worsen Follow-up/Referrals: Kenzie Feliciano MD [Primary Care Provider] - Diet: Regular Fluids: 1200ml (5 cups) Addtl Provider Instructions: Pull US guided peripheral when done Acyclovir (5/9 PM Last Dose) Needs PET scan Outpatient Prescriptions: New acetaminophen [Mapap (acetaminophen)] 325 mg Tablet 650 mg PO Q4H PRN (Reason: fever or pain) Qty: 90 RF: 0 heparin, porcine (PF) 5,000 unit/0.5 mL Syringe 5,000 unit subcut Q8 Qty: 10 RF: 0 levetiracetam [Keppra] 500 mg Tablet 500 mg PO BID Qty: 60 RF: 0 sodium chloride 1 gram Tablet 1 g PO BID Qty: 60 RF: 0 acyclovir sodium 50 mg/mL solution 500 mg IV Q8H Qty: 60 RF: 0 doxycycline monohydrate 100 mg capsule 100 mg PO BID 3 Days Qty: 6 RF: 0 Continued Women's Daily Formula 27-0.4 mg Tablet 1 tab PO QAM RF: 0 ipratropium-albuterol 0.5 mg-3 mg(2.5 mg base)/3 mL Solution For Nebulization 3 ml NEB QIDR 10 Days Qty: 90 RF: 2 bupropion HCl [Wellbutrin SR] 100 mg Tablet Sustained-Release 12 Hr 100 mg PO DAILY RF: 0 docusate sodium [Colace] 100 mg Capsule 100 mg PO BID RF: 0 Benefiber Clear SF (dextrin) 3 gram/3.5 gram Powder In Packet 1 packet PO DAILY PRN (Reason: Constipation) RF: 0 buspirone 5 mg tablet 5 mg PO TID RF: 0 prednisone 10 mg tablet 10 mg PO UD RF: 0 cetirizine 10 mg Tablet 10 mg PO DAILY PRN (Reason: Allergy Symptoms) RF: 0 aspirin 81 mg Tablet,Delayed Release (Dr/Ec) 81 mg PO DAILY RF: 0 tamsulosin 0.4 mg capsule 0.4 mg PO DAILY RF: 0 Linzess 145 mcg capsule 145 mcg PO DAILY RF: 0 fluticasone propionate 50 mcg/actuation spray,suspension 2 spry Intranasal HS RF: 0 ipratropium-albuterol 0.5 mg-3 mg(2.5 mg base)/3 mL Solution For Nebulization 3 ml INHALATION QID PRN (Reason: Shortness Of Breath Or Wheezing) RF: 0 montelukast 10 mg tablet 10 mg PO HS RF: 0 albuterol sulfate [Ventolin HFA] 90 mcg/actuation HFA aerosol inhaler 2 puff Inhalation Q4H PRN (Reason: Wheezing) RF: 0 pantoprazole 40 mg tablet,delayed release (DR/EC) 40 mg PO QAM RF: 0 sennosides [senna] 8.6 mg Tablet 17.2 mg PO BID PRN (Reason: Constipation) RF: 0 fluticasone propion-salmeterol [Advair Diskus] 500-50 mcg/dose Blister With Device 1 inh INHALATION BID RF: 0 rosuvastatin 20 mg tablet 20 mg PO HS RF: 0 Spiriva with HandiHaler 18 mcg Capsule, W/Inhalation Device 1 cap INHALATION QAM RF: 0 venlafaxine 150 mg Tablet Extended Release 24hr 150 mg PO QAM RF: 0 calcium carbonate [Calcium 500] 500 mg calcium (1,250 mg) Tablet 500 mg PO TID RF: 0 polyethylene glycol 3350 [Miralax] 17 gram/dose Powder 17 g PO QAM PRN (Reason: Constipation) RF: 0 ascorbic acid (vitamin C) 1,000 mg Tablet 1,000 mg PO QAM RF: 0 cyanocobalamin (vitamin B-12) 1,000 mcg Tablet 1,000 mcg PO QAM RF: 0 Discontinued azithromycin [Zithromax] 250 mg Tablet 250 mg PO 3XWK RF: 0 lorazepam 0.5 mg tablet 0.5 mg PO BID PRN (Reason: Anxiety) RF: 0 levofloxacin 500 mg tablet 500 mg PO DAILY RF: 0 trazodone 50 mg tablet 75 mg PO HS PRN (Reason: Insomnia) RF: 0 Stand-Alone Forms: [facility] Discharge Orders: Discharge Order (Routine); Ordered 01/22/19 Ordered By: Sarthak Mcfadden Admission Data Admit Date/Time: 01/11/19 12:18 Attending Provider: Sarthak Mcfadden Admit Provider: Romeo Felder Primary Care Provider: Kenzie Feliciano Other Providers: Petra Box ; Lazaro Esparza ; [facility] ; Romeo Felder ; Pa Jaffe ; Maurizio Ruggiero ; Mik Zhang ; Omar Rodriguez. Service: Telemetry
[2019-01-22] MEDS: ROSUVASTATIN CALCIUM 20 MG TAB PO SCH (20:31)
[2019-01-22] MEDS: MONTELUKAST SODIUM 10 MG TABLET PO SCH (20:32)
[2019-01-23] MEDS: LEVALBUTEROL HCL 1.25 MG/3 ML NEB INH SCH ×3 (01:30→13:46)
[2019-01-23] MEDS: ACYCLOVIR SOD 500 MG in DEXTROSE 5% 100 ML IV SCH ×2 (05:07→12:04)
[2019-01-23] MEDS: HEPARIN SOD 5,000 UNIT/0.5 ML VIAL SQ SCH (05:58)
[2019-01-23] MEDS: CYANOCOBALAMIN 500 MCG TABLET (VITAMIN B-12) PO SCH (08:45)
[2019-01-23] MEDS: guaiFENesin 600 MG TABCR PO SCH (08:45)
[2019-01-23] MEDS: FUROSEMIDE 20 MG TAB PO SCH (08:45)
[2019-01-23] MEDS: DOCUSATE SODIUM 100 MG CAP PO SCH (08:45)
[2019-01-23] MEDS: PANTOprazole 40 MG TAB PO SCH (08:45)
[2019-01-23] MEDS: VENLAFAXINE HCL XR 150 MG CAPXR PO SCH (08:45)
[2019-01-23] MEDS: SODIUM CHLORIDE 1 GM TABLET PO SCH (08:46)
[2019-01-23] MEDS: ASCORBIC ACID 500 MG TAB PO SCH (08:46)
[2019-01-23] MEDS: TAMSULOSIN HCL 0.4 MG CAP PO SCH (08:46)
[2019-01-23] MEDS: levETIRAcetam 500 MG TAB PO SCH (08:46)
[2019-01-23] MEDS: BuPROPion SR 100 MG TABCR PO SCH (08:46)
[2019-01-23] MEDS: POTASSIUM CHLORIDE 20 MEQ TABCR PO SCH (08:46)
[2019-01-23] MEDS: FLUTICASONE/SALMETEROL (ADVAIR) 500/50 INH 14 PUFF INH SCH (08:47)
[2019-01-23] MEDS: THIAMINE HCL 100 MG in SYRINGE 9 ML IV SCH (08:47)
--- NOTE | 2019-01-23 10:32 | Infectious Disease Progress Nt ---
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 would hold additional abx. continue acyclovir as planned, continue supportive care. (2) Pneumonia: Subjective pt seen in followup, states she is awaiting d/c to [facility]. Feeling better overall. denies vergara, no vision changes, no f/c. no neck pain, tolerating acyclovir, wbc 9.7. all cultures negative. no abd pain, no n/v/d, no cp, sob, cough. Review of Systems Review of Systems: All systems reviewed & are unremarkable except as noted in HPI & below Physical Exam Constitutional: WD/WN, vitals as above well developed, + ill appearing and + lethargic Eyes: PERRL, conjunctivae normal, anicteric sclerae ENMT: Mouth: no lip abnormality, no oropharynx abnormality and no oral mucosal abnormality Neck: normal visual inspection Respiratory: normal respiratory effort, lungs clear to auscultation Cardiovascular: RRR, no murmur, no edema Gastrointestinal (Abdomen): normal bowel sounds, soft, nontender, no hepatosplenomegaly Musculoskeletal: no cyanosis or clubbing, extremities motor strength 5/5 Head/Neck/Chest: neck supple Skin: no rashes, warm and dry Neurologic: normal touch/pain/proprioception and moves all extremities Speech / Cognition: normal speech Psychiatric: A+Ox3, euthymic affect Orientation: + not alert Speech: normal rate/rhythm/volume of speech Results & Data Vital Signs (Past 12 Hours) Vital Signs Temp Pulse Resp BP Pulse Ox 01/23/19 07:36 36.7 C 84 20 130/73 96 01/23/19 07:16 81 18 96 01/23/19 04:02 36.7 C 82 18 143/75 H 96 01/23/19 01:31 80 22 97 01/23/19 00:04 36.6 C 88 20 117/70 98 Laboratory Results Microbiology 01/15/19 11:19 Cerebral Spinal Fluid Acid Fast Bacilli Smear - Final 01/15/19 11:19 Cerebral Spinal Fluid Acid Fast Bacilli Culture - Preliminary No Acid-Fast Bacilli Isolated - Report 1, Additional Report to Follow. 01/15/19 11:19 Cerebral Spinal Fluid Fungal Culture - Preliminary No yeast or fungus isolated - Report 1, Additional Report to Follow. 01/15/19 11:19 Cerebral Spinal Fluid Gram Stain - Final 01/15/19 11:19 Cerebral Spinal Fluid CSF Culture - Final No growth 01/11/19 09:15 Blood Blood Culture - Final No growth 01/11/19 09:07 Blood Blood Culture - Final No growth 01/15/19 11:19 Cerebral Spinal Fluid Cryptococcal Antigen - Final
--- NOTE | 2019-01-23 13:20 | Hospitalist Progress Note ---
Date of Service January 23, 2019 Assessment & Plan (1) Altered mental status: Mental status back to baseline MRI brain suggested HSV encephalitis to continue IV Acyclovir until 01/24. US guided peripheral placed 01/21 Also to continue Doxycycline until 01/24 (2) Encephalitis: Presented with febrile illness with altered mental status. 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 To complete acyclovir 10 mg / kg q 8 hrs on 01/14--10 day course EEG :This is an abnormal EEG in a patient with altered mentation due to 1. Single right temporal epileptiform discharge suggestive of an underlying predisposition for seizures from this area, 2. Focal slowing in the right temporal head region suggestive of an underlying structural abnormality, 3. Diffuse background slowing suggestive of a non specific encephalopathy. Last dose of enoxaparin was evening of 01/13. Last dose of ASA was morning of 01/13. SC Heparin per SNF S/P LP: CSF studies detected HSV 1 Appreciate ID/Neurology recommendations Continue Keppra 500mg BID (3) Abnormal EEG: EEG INTERPRETATION: "This is an abnormal EEG in a patient with altered mentation due to 1. Single right temporal epileptiform discharge suggestive of an underlying predisposition for seizures from this area, 2. Focal slowing in the right temporal head region suggestive of an underlying structural abnormality, 3. Diffuse background slowing suggestive of a non specific encephalopathy. " No clinically overt seizure activity. 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 Continue 1200 ml fluid restriction, furosemide 20 mg BID, salt tablets Appreciate Nephrology recommendations Plan to get weekly BMP upon discharge and FU with nephrology (5) COPD (chronic obstructive pulmonary disease): Continue Inhalers Monitor (6) Pneumonia: Congested cough. Chronic Seasonal Allergies per patient No infiltrates seen on initial CXR. CXR:Slightly progressive left basilar infiltrate. Blood cultures: Negative to date Continue Doxycycline (7) Nocturnal hypoxia: Continue supplemental O2. (8) Squamous cell carcinoma lung: Biopsy of endobronchial lesion 01/04/[address] Bowers. Path consistent with squamous cell Ca. PET to be rescheduled as outpatient MRI performed 01/13 - no apparent mets. Outpatient follow-up with Dr. Bowers. (9) GERD (gastroesophageal reflux disease): Continue PPI. (10) Hypokalemia: Resolved Continue Potassium supplements (11) Distal radius fracture, right: Nondisplaced fracture distal radius. Appreciate Ortho. Input-- FU as outpatient Nonsurgical management /splinting recommended. Continue calcium supplementation. Vitamin D level = 44. (12) Depression: Bupropion, venlafaxine, and trazodone all associated with hyponatremia. (13) DVT prophylaxis: Increased risk for VTE due to malignancy, age, and other factors. Resume prophylactic anticoagulants SCD's. Ambulate. (14) Discharge planning issues: Discharge to SNF today Subjective Patient is seen and examined at bedside Doing well today No new complaints Family at bedside Denies chest pain, SOB, dizziness Discussed with Nephrology today Planned to be discharged to Rehab facility today Review of Systems Review of Systems: All systems reviewed & are unremarkable except as noted in HPI & below Physical Exam Physical Exam: Physical Exam: Vitals signs as noted above General Appearance:Chronic ill appearing, thin, frail, no apparent distress Head: normocephalic, Atraumatic Eyes: normal inspection, EOMI Neck: supple, Trachea midline Respiratory/Chest: Normal breath sounds, Scattered wheezes Cardiovascular: S1, S2, No murmur Abdomen/GI:Soft, Non tender, Bowel sounds present Extremities/Musculoskelatal:normal inspection, no edema Neurologic/Psych:AAOX3, grossly no focal neurological deficits Skin: normal color, warm Results & Data Vital Signs (Past 12 Hours) Vital Signs Temp Pulse Pulse Resp BP BP Pulse Ox 01/23/19 12:17 36.8 C 96 H 98 H 20 130/73 149/78 H 99 01/23/19 11:28 36.8 C 96 H 20 149/78 H 99 01/23/19 07:36 36.7 C 84 20 130/73 96 01/23/19 07:16 81 18 96 01/23/19 04:02 36.7 C 82 18 143/75 H 96 01/23/19 01:31 80 22 97
== END 2019-01-23 14:00 | DRG 98 ==
LOC: ED 08:19 → SUATTDRO 12:18 → 2S 12:18 → 2W 01-17 10:43 → 4E 01-20 04:10

== ENCOUNTER 2019-09-20 10:05 | Inpatient (IN) ==
[2019-09-20 10:49] LABS: Basophils # (auto) 0.01 K/uL (0-0.2); Basophils % (auto) 0.2 %; Eosinophils # (auto) 0.05 K/uL (0-0.5); Eosinophils % (auto) 0.9 %; Hematocrit (blood only) 43.6 % (37-47); Hemoglobin 14.3 g/dL (12.0-16.0); Immature Granulocytes # (auto) 0.01 K/uL (0.00-0.02); Immature Granulocytes % (auto) 0.2 %; Lymphocytes # (auto) 1.14 K/uL (1.2-3.4); Lymphocytes % (auto) 19.8 %; Mean Corpuscular Hemoglobin 31.3 pg (25-34); Mean Corpuscular Hgb Conc 32.8 g/dL (32-36); Mean Corpuscular Volume 95.4 fL (80-100); Mean Platelet Volume 8.5 fL (7.4-10.4); Monocytes # (auto) 0.46 K/uL (0.11-0.59); Neutrophils % (auto) 70.9 %; Platelet Count 263 K/uL (130-400); RDW Coefficient of Variation 14.1 % (11.5-14.5); RDW Standard Deviation 49.1 fL (36.4-46.3); Red Blood Count 4.57 M/uL (4.2-5.4); White Blood Count 5.77 K/uL (4.8-10.8)
--- NOTE | 2019-09-20 10:50 | CT Scan Report ---
CT OF THE HEAD WITHOUT CONTRAST CLINICAL HISTORY: Confusion. Evaluate for stroke or bleed. History of lung cancer. COMPARISON STUDY: Head CT January 16, 2019. MRI of the brain January 13, 2019. TECHNIQUE: Helical axial images of the head were obtained without IV contrast. Automated exposure con trol was utilized for the study. A dose lowering technique was utilized adhering to the principles o f ALARA. FINDINGS: No acute intracranial hemorrhage, midline shift or mass effect is present. Hypodensity with evidence of volume loss within the right frontal and temporal lobes suggests sequela of the process shown on MRI of January 13, 2019 with resultant encephalomalacia. There is slight associated asymmetric dilatation of the right lateral ventricle. Basilar cisterns are patent. There are no extra axial col lections. No calvarial fracture is present. Additional white matter hypodensities favor small vessel disease. IMPRESSION: 1. No acute intracranial findings. 2. Right temporal and frontal lobe hypodensity with mild volume loss which suggests sequela of the pr ocess shown on MRI of January 13, 2019 with resultant encephalomalacia. ACT 112: Negative or not required by law. Electronically signed by: Harris Barahona M.D. 09/20/2019 10:49 AM
--- NOTE | 2019-09-20 10:51 | CT Scan Report ---
CT SCAN OF THE CERVICAL SPINE CLINICAL HISTORY: Fall. COMPARISON STUDY: No priors. TECHNIQUE: CT scan of the cervical spine is performed from the skull base to the upper thoracic spine . Images are reviewed in the axial, sagittal, and coronal planes. IV contrast was not administered fo r this examination. A dose lowering technique was utilized adhering to the principles of ALARA. CT DOSE: 831.29 mGy.cm FINDINGS: Skeletal structures: The skeletal structures are osteopenic. There is no evidence of fracture or subl uxation involving the cervical spine. Vertebral body height is maintained. There is minimal anterolis thesis at C3-C4, C4-C5, and C5-C6. Alignment is otherwise preserved. Anterior osteophytes are seen th roughout. The odontoid process and lateral masses are intact. The atlantoaxial articulation is preser pradeep noting productive degenerative change. The spinous processes appear intact. There is moderate mul tilevel cervical spondylosis. Uncovertebral and facet arthropathy contribute to neural foraminal sten osis at several levels. Intervertebral discs: The disc spaces are well maintained. Central canal: Widely patent. Soft tissues: The prevertebral and paraspinous soft tissues are within normal limits. Calcification i s noted in the right lobe of the thyroid gland. There is atherosclerotic calcification of the carotid bulbs. Calvarium: The visualized calvarium at the skull base appears intact. Brain parenchyma: Partially visualized brain parenchyma the skull base is within normal limits. Sinuses and mastoids: The visualized paranasal sinuses are clear. The mastoid air cells are well pneu matized. Lung apices: Emphysematous change is noted at the apices. Apical lung parenchyma is otherwise clear a s visualized. IMPRESSION: 1. There is no evidence of fracture or subluxation involving the cervical spine. 2. Osteopenia and spondylotic change as above. 3. Emphysema. ACT 112: Negative or not required by law. Electronically signed by: Marlon Stewart M.D. 09/20/2019 10:50 AM
[2019-09-20 11:01] LABS: Partial Thromboplastin Ratio 0.9; Partial Thromboplastin Time 23.8 Seconds (21.0-31.0); Prothrombin Time 10.4 Seconds (9.0-12.0)
[2019-09-20 11:08] LABS: Alanine Aminotransferase 30 U/L (12-78); Albumin Level 3.6 gm/dl (3.4-5.0); Aspartate Aminotransferase 22 U/L (15-37); BUN Creatinine Ratio 15.9 (10-20); Blood Urea Nitrogen 11 mg/dl (7-18); Calcium 9.2 mg/dl (8.5-10.1); Carbon Dioxide 31 mmol/L (21-32); Chloride 108 mmol/L (98-107); Creatinine Clr Calc Pharmacy 58.3 ml/min; Est GFR (African American) 98.9; Est GFR (Non-African American) 85.4; Glucose 101 mg/dl (70-99); Magnesium 2.1 mg/dl (1.8-2.4); Potassium 3.8 mmol/L (3.5-5.1); Sodium 143 mmol/L (136-145)
[2019-09-20 11:13] LABS: Albumin Globulin Ratio 1.1 (0.9-2); Alkaline Phosphatase 71 U/L (45-117); Bilirubin,Total 0.4 mg/dl (0.2-1); Globulin 3.3 gm/dl (2.5-4.0); Total Protein 6.9 gm/dl (6.4-8.2); Troponin I < 0.015 ng/ml (0-0.045)
[2019-09-20] MEDS ORDERED: OPTIRAY 320 125ml IV PRN (11:27)
--- NOTE | 2019-09-20 11:56 | CT Scan Report ---
CT ANGIOGRAPHY OF THE NECK WITH CONTRAST CLINICAL HISTORY: oriented x1 repetitive eval for cva COMPARISON STUDY: CT of the cervical spine September 20, 2019. Technique: CT angiography of the carotid and vertebral arteries was obtained using KareoraFusebill 320 IV and 3D reconstruction on an independent workstation. NASCET criteria was utilized. Automated exposure c ontrol was utilized for the study. A dose lowering technique was utilized adhering to the principles of ALARA. Findings: Emphysema is noted within the lung apices. There is no cervical lymphadenopathy. There is n o cervical spine fracture or suspicious osseous lesion. This exam is compromised by motion artifact w hich makes accurate evaluation of stenoses difficult. There is stenosis of the proximal right interna l carotid artery. Patent lumen measures 1.3 mm in caliber. The distal right internal carotid artery m easures 3.9 mm. There is also stenosis at the origin of the left internal carotid artery which is sub optimally assessed due to motion artifact. Patent lumen measures approximately 1.6 mm the distal cerv ical internal carotid artery measures 3.7 mm. The bilateral vertebral arteries are patent. There is m ild to moderate stenosis at the origin of the left vertebral artery. There is no dissection within th e major vessels of the neck. IMPRESSION: 1. At least moderate stenosis of the bilateral proximal internal carotid arteries which are difficult to evaluate given motion artifact. Approximate 70% stenosis of the proximal right internal carotid a rtery and 60% stenosis of the proximal left internal carotid artery. 2. No dissection within the major vessels of the neck. 3. Emphysema. ACT 112: Negative or not required by law. Electronically signed by: Harris Barahona M.D. 09/20/2019 11:54 AM
--- NOTE | 2019-09-20 12:04 | CT Scan Report ---
CTA ANGIOGRAPHY OF THE HEAD CLINICAL HISTORY: oriented x1 repetitive eval for cva COMPARISON STUDY: Head CT January 16, 2019. MRI of the brain January 13 2019. TECHNIQUE: Helical axial images of the head were obtained following uneventful intravenous administr ation of 120 cc of Optiray 320. Automated exposure control was utilized for the study. A dose lower ing technique was utilized adhering to the principles of ALARA. CT DOSE: 544.83 mGy.cm FINDINGS: No acute intracranial hemorrhage, midline shift or mass effect is present. There is mild en cephalomalacia within the right temporal and frontal lobes. Basilar cisterns are patent. There are no extra axial collections. The right M1 and M2 segments are patent. The anterior cerebral arteries jonas se from the left internal carotid artery. The left M1 and M2 segments are patent. Posterior circulati on is unremarkable. No intracranial aneurysm, dissection, thrombus or abrupt vessel cut off is identi fied. IMPRESSION: Unremarkable CTA of the head. ACT 112: Negative or not required by law. Electronically signed by: Harris Barahona M.D. 09/20/2019 12:02 PM
--- NOTE | 2019-09-20 12:36 | XRay Report ---
XR chest 1V portable HISTORY: 74 years-old Female ams eval for pna acutely altered mental status COMPARISON: Chest radiograph 07/19/2019, CTA neck 07/21/2020, chest CT 05/13/2019 TECHNIQUE: Portable AP view of the chest FINDINGS: Cardiac mediastinal and hilar silhouettes are within normal limits. No pneumothorax, large pleural ef fusion or overt pulmonary edema. Moderate emphysema with chronic fibrotic changes. Ill-defined 2.8 cm nodular right suprahilar opacity is unchanged. Mild bibasilar densities suggest atelectasis. Degener ative changes of the shoulders and spine. IMPRESSION: 1. Emphysema and chronic fibrotic changes without acute process. 2. 2.8 cm nodular right suprahilar opacity redemonstrated. ACT 112: Negative or not required by law. The above report was generated using voice recognition software. It may contain grammatical, syntax o r spelling errors. Electronically signed by: Marvin Lopez M.D. 09/20/2019 12:35 PM
[2019-09-20 12:37] LABS: Appearance Urine Clear (Clear); Bilirubin Urine Negative (Negative); Blood Urine Negative (Negative); Color Urine Yellow; Glucose Urine UA Negative (Negative); Ketones Urine Negative (Negative); Leukocyte Esterase Urine Negative (Negative); Nitrite Urine Negative (Negative); Protein Urine Negative (Negative); Specific Gravity Urine 1.012 (1.000-1.030); Urobilinogen Urine Negative (Negative); pH Urine 6.5 (4.5-7.5)
--- NOTE | 2019-09-20 14:26 | Neurology Consultation ---
Date of Consultation September 20, 2019 Assessment & Plan (1) Stroke-like symptoms: 1. MRI brain for any new lesions or abnormalities 2. optimize HTN, HLD, LDL <70 3. PT/OT/ speech for any discharge needs 4. correct lyte abnormalities 5. if no source is found for confusion may need LP - currently no neck rigidity 6. She is not able to identify what medication she is currently taking- was previously on aspirin 81 mg daily but not on current med list 7. would continue Keppra 500 mg BID for seizure prevention further recommendations after MRI (2) Altered mental status: as above Supervising Physician Co-Signing Physician Notes Patient was seen and examined in the ED. Friend and column precaster at the bedside. Patient is awake and alert. Comprehension is intact. Speech is clear. R epetitively asking about her MRI brain scan. She is amnestic to the fall reported to have last night. No no trauma. UA was Negative. CT head negative in the ED. Face is symmetric. No focal weakness. Patient does not appear encephalopathic. Differential diagnosis certainly includes transient global amnesia Vs post concussive syndrome. Low suspicion for stroke as not obvious focal findings on examine or no aphasia. Agree with MRI brain w/wo contrast for further evaluation. Would recommend normotension as low suspicion for CVA. Neurology will continue to follow. History of Present Illness Reason for Consultation: confusion Requesting Physician: Petra Box MD Attending Physician: Petra Box MD History of Present Illness Chayo is a 73 year old female who presents to the ED with confusion. She was seen at [facility] 01/03 through 01/05 for observation after she developed bleeding during an outpatient bronchoscopy. During that bronchoscopy, she was found to have a left upper lobe lesion however given friability, there was unable to be biopsied at that time. 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 She was doing well when last seen in out patient clinic. 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 She continues on Keppra 500 mg BID due to the potential for recurrent seizure events. Today she does not know where she is or how she got here. She states she does not know why she was brought to the hospital. denies CP, SOB, abdominal pain one sided weakness, numbness tingling, N, V, vision changes. Allergies Allergy/AdvReac Type Severity Reaction Status Date / Time pollen extracts Allergy Intermediate CONGESTION Verified 09/20/19 10:37 Home Medications Home Medications Medication Instructions Recorded Confirmed Type Spiriva with HandiHaler 1 cap INHALATION QAM 11/28/18 08/05/19 History calcium carbonate [Calcium 500] 500 mg PO QAM 11/28/18 08/05/19 History cyanocobalamin (vitamin B-12) 1,000 mcg PO QAM 11/28/18 08/05/19 History fluticasone propion-salmeterol 1 inh INHALATION BID 11/28/18 08/05/19 History [Advair Diskus] fluticasone propionate [Flonase 2 spry INTRANASAL HS 11/28/18 08/05/19 History Allergy Relief] montelukast [Singulair] 10 mg PO HS 11/28/18 08/05/19 History pantoprazole [Protonix] 40 mg PO QAM 11/28/18 08/05/19 History rosuvastatin [Crestor] 20 mg PO HS 11/28/18 08/05/19 History venlafaxine 150 mg PO QAM 11/28/18 08/05/19 History Women's Daily Formula 1 tab PO QAM 12/31/18 08/05/19 History Linzess 145 mcg PO QAM 01/11/19 08/05/19 History buspirone 5 mg PO TID 01/11/19 08/05/19 History cetirizine [Zyrtec] 10 mg PO PM 01/11/19 08/05/19 History levetiracetam [Keppra] 500 mg PO BID #60 tab 01/22/19 08/05/19 Rx ascorbic acid (vitamin C) [Vitamin 1,000 mg PO QAM 01/31/19 08/05/19 History C] ipratropium-albuterol 3 ml NEB QIDR PRN 01/31/19 08/05/19 History lorazepam [Ativan] 0.25 mg PO QAM 04/11/19 08/05/19 History mirtazapine [Remeron] 15 mg PO HS 04/11/19 08/05/19 History ibuprofen 400 mg PO Q6H PRN 04/23/19 08/05/19 History sulfamethoxazole 800 1 tab PO BID #41 tab 08/05/19 08/05/19 Rx mg-trimethoprim 160 mg tablet Patient History Medical History Anxiety Asthma Chronic constipation COPD (chronic obstructive pulmonary disease) Depression Encephalopathy HAD LP, SUGGESTED VIRAL ENCEPHALOPATHY, CONFIRMED HSV VIA PCR. TX WITH ACYCLOVIR. GERD (gastroesophageal reflux disease) controlled Hiatal hernia History of bronchitis History of colon polyps Hyperlipidemia On home oxygen therapy 2L O2 via NC HS and prn strenuous activity Osteoarthritis Scoliosis Seizure HAD EEG/MRI DURING HOSPITALIZATION 12/2018 FOR AMS -- SHOWED RARE EPI LEPTIFORM DISCHARGE. STARTED ON KEPPRA FOR PROPHYLAXIS-NO SEIZURES SINCE. Squamous cell carcinoma lung no chemo or radiation Tremor Surgical History History of bilateral cataract extraction History of bronchoscopy [facility] 01/04/19, MAC 3, ETT 8.0, GRADE VIEW I. History of detached retina repair right eye History of dilatation and curettage History of left oophorectomy History of Mohs micrographic surgery for skin cancer History of open reduction and internal fixation (ORIF) procedure right hip History of repair of left rotator cuff History of repair of right rotator cuff History of thumb surgery left History of tonsillectomy and adenoidectomy History of wisdom tooth extraction Hx of colonoscopy S/P bronchoscopy with biopsy (07/19/19) Endobronchial Ultrasound Flexible Bronchoscopy, biopsy with Cryoprobe, brushings, forceps Dr. Bowers 07/19/19 Family History Mother , age 80 ` s Alzheimer disease Colon cancer Father , age 80` s Alzheimer disease Sister Breast cancer had chemotherapy and radiation therapy at age45 Sister No problems noted. 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 Other Information That Helps Us Care for You: No Feels Safe at Home: Yes Safety Concerns: Feels Safe At This Time Smoking Status: Current some day smoker Tobacco Type: cigarettes ; Age Started Using Tobacco: 17 ; Age Quit Using Tobacco: 73 ; packs per day: 1 ; Cigarettes Per Day: very little ; Do You Dip or Chew Tobacco: No ; Second Hand Exposure: No ; Tobacco Cessation Education Requested by Patient: No Hx Alcohol Use: Yes Alcohol type: wine Alcohol type Comment: 1-2 glasses of wine a day Alcohol Intake Frequency: Daily Hx Substance Use: No Physical Exam Physical Exam: Physical Exam: Constitutional: appearance thin pale frail Ears, Nose, Mouth and Throat: mucous membranes moist, no injection and skin normal, eyes normal Cardiovascular: normal S-1 and S-2 and regular rate and rhythm Respiratory: course breath sounds Musculoskeletal: no peripheral edema and good distal pulses Skin: no stigmata of neurocutaneous disease noted and normal and intact Eyes: extraocular muscles intact (EOMI) and pupils equal, round and reactive to light (PERRL) NEUROLOGIC EXAMINATION: Mental status: Alert and interactive Oriented she knows she is in hospital in [place] but does not know why and can not answer any orientation questions such as president, year, month Oriented to person Speech fluent with no evidence of aphasia Cranial Nerves smile eye brow raise symmetric Reflexes: Deep tendon reflexes were symmetrical and graded 2/5. down going toes Sensory: intact to light and cool touch Coordination: finger to nose no bi pass Gait/Stance: Posture normal. sitting up in bed Motor: Negative for pronator drift of out stretched arms with eyes closed. Strength: biceps triceps hand cupola melter 5/5 bilaterally, hip flex bi laterally 5/5 Results & Data Vital Signs (Past 12 Hours) Vital Signs Temp Pulse Pulse Resp BP BP Pulse Ox 09/20/19 13:48 76 20 186/78 H 99 09/20/19 12:24 90 21 192/92 H 96 09/20/19 12:00 78 13 192/76 H 99 09/20/19 11:37 77 16 191/78 H 100 09/20/19 11:36 79 16 191/78 H 100 09/20/19 11:35 20 98 09/20/19 11:00 82 20 191/76 H 99 09/20/19 10:54 84 18 191/83 H 97 09/20/19 10:44 85 21 191/83 H 100 09/20/19 10:40 79 20 98 09/20/19 10:36 95 09/20/19 10:16 36.4 C L 77 14 181/87 H 95 09/20/19 10:12 80 17 100 09/20/19 10:08 70 16 181/87 H 100 Laboratory Results Abnormal lab results 09/20/19 09/20/19 Range/Units 10:26 10:26 RDW Std Deviation 49.1 H (36.4-46.3) fL Lymph # (Auto) 1.14 L (1.2-3.4) K/uL Chloride 108 H (98-107) mmol/L Glucose 101 H (70-99) mg/dl Diagnostic Findings CT spine- There is no evidence of fracture or subluxation involving the cervical spine. Osteopenia and spondylotic change as above. Emphysema. CT head- No acute intracranial findings. Right temporal and frontal lobe hypodensity with mild volume loss which suggests sequela of the process shown on MRI of January 13, 2019 with resultant encephalomalacia. CTA head-Unremarkable CTA of the head. CTA neck-At least moderate stenosis of the bilateral proximal internal carotid arteries which are difficult to evaluate given motion artifact. Approximate 70% stenosis of the proximal right internal carotid artery and 60% stenosis of the proximal left internal carotid artery. No dissection within the major vessels of the neck. Emphysema. CXR-Emphysema and chronic fibrotic changes without acute process. 2.8 cm nodular right suprahilar opacity re demonstrated. (1) Altered mental status Altered mental status type: unspecified Qualified Code(s): R41.82 - Altered mental status, unspecified
--- NOTE | 2019-09-20 14:29 | History & Physical Report ---
Date of Service September 20, 2019 Assessment & Plan (1) Altered mental status: Patient was brought by EMS for confusion Etiology unknown Does not appear encephalopathic. Might be related to post concussive syndrome due to the fall last night CT head showed no acute intracranial abnormality CTA head showed no acute intracranial abnormality CTA neck showed at least moderate stenosis of the bilateral proximal internal carotid arteries which are difficult to evaluate given motion artifact. Approximate 70% stenosis of the proximal right internal carotid artery and 60% stenosis of the proximal left internal carotid artery UA negative Neurology consulted Case discussed with neurology recommended to obtain MRI of the brain to rule out any new lesions or abnormalities No indication for LP since patient denies any neck rigidity/afebrile and no vision disturbances No focal neuro deficit on exam noted Will put on one-to-one observation Continue neuro check Fall precaution Seizure Continue Keppra BID Continue seizure precaution Anxiety/Depression Continue venlafaxine and buspirone if becomes agitated will add low dose haldol prn Squamous cell carcinoma lung Biopsy of endobronchial lesion 01/04/[address] Bowers. Pathology consistent with squamous cell Ca. Follow up outpatient COPD Continue home oxygen supplement Continue Spiriva and advair Will add duoneb prn HTN BP elevated possible due to agitation Will add hydralazine 5 mg as needed for SBP above 170 Continue monitor BP DVT px on Lovenox CODE Status full code as per son who is the power of varnish remover Disposition Resides at the [facility] Son # [phone] History of Present Illness Chief Complaint: Confusion Primary Care Provider: [facility] 73 years old female with past medical history of COPD on chronic oxygen dyslipidemia, osteoporosis, herpes encephalitis anxiety who resides at the [facility], was brought by EMS for confusion patient is a very poor historian. When I entered her room she was talking on the phone with her daughter. most of the history obtained from staff at the [facility] and son Kostas over the phone. As per staff at the [facility] patient fell last night where she called EMS and the pipeline maintenance supervisor at the [facility]. When EMS came last night they evaluated patient and she was found to be stable they did not take her to the hospital. The pipeline maintenance supervisor left a note for the staff to check on her this morning. When the staff check on her this morning patient was found to be confused. As per staff, patient is independent since she lives at independent living facility at [facility]. Patient said that she does not know what happened and she does not remember anything. She said when she woke up she found herself in the hospital. When I asked patient what was the last thing that she remembered and she could not tell. She said that she did not see her family over [place] but when I spoke to son, patient had some family member that came to visit her for the holiday. Patient said that she is very anxious because she cannot remember anything. In December she was admitted for altered mental status and was diagnosed for HSV encephalitis. Son said since after her last hospitalization she has been having on and off confusion. Currently she is very anxious and asking for her son and her daughter. I told her that she just spoke to her daughter few minutes ago, she did not recall that she just spoke to her daughter. Patient denies any chest pain, palpitation, dizziness, fever, cough and shortness of breath. Allergies Allergy/AdvReac Type Severity Reaction Status Date / Time pollen extracts Allergy Intermediate CONGESTION Verified 09/20/19 10:37 Home Medications Home Medications Medication Instructions Recorded Confirmed Type Spiriva with HandiHaler 1 cap INHALATION QAM 11/28/18 08/05/19 History calcium carbonate [Calcium 500] 500 mg PO QAM 11/28/18 08/05/19 History cyanocobalamin (vitamin B-12) 1,000 mcg PO QAM 11/28/18 08/05/19 History fluticasone propion-salmeterol 1 inh INHALATION BID 11/28/18 08/05/19 History [Advair Diskus] fluticasone propionate [Flonase 2 spry INTRANASAL HS 11/28/18 08/05/19 History Allergy Relief] montelukast [Singulair] 10 mg PO HS 11/28/18 08/05/19 History pantoprazole [Protonix] 40 mg PO QAM 11/28/18 08/05/19 History rosuvastatin [Crestor] 20 mg PO HS 11/28/18 08/05/19 History venlafaxine 150 mg PO QAM 11/28/18 08/05/19 History Women's Daily Formula 1 tab PO QAM 12/31/18 08/05/19 History Linzess 145 mcg PO QAM 01/11/19 08/05/19 History buspirone 5 mg PO TID 01/11/19 08/05/19 History cetirizine [Zyrtec] 10 mg PO PM 01/11/19 08/05/19 History levetiracetam [Keppra] 500 mg PO BID #60 tab 01/22/19 08/05/19 Rx ascorbic acid (vitamin C) [Vitamin 1,000 mg PO QAM 01/31/19 08/05/19 History C] ipratropium-albuterol 3 ml NEB QIDR PRN 01/31/19 08/05/19 History lorazepam [Ativan] 0.25 mg PO QAM 04/11/19 08/05/19 History mirtazapine [Remeron] 15 mg PO HS 04/11/19 08/05/19 History ibuprofen 400 mg PO Q6H PRN 04/23/19 08/05/19 History sulfamethoxazole 800 1 tab PO BID #41 tab 08/05/19 08/05/19 Rx mg-trimethoprim 160 mg tablet Past Med/Surg History Medical History Anxiety Asthma Chronic constipation COPD (chronic obstructive pulmonary disease) Depression Encephalopathy HAD LP, SUGGESTED VIRAL ENCEPHALOPATHY, CONFIRMED HSV VIA PCR. TX WITH ACYCLOVIR. GERD (gastroesophageal reflux disease) controlled Hiatal hernia History of bronchitis History of colon polyps Hyperlipidemia On home oxygen therapy 2L O2 via NC HS and prn strenuous activity Osteoarthritis Scoliosis Seizure HAD EEG/MRI DURING HOSPITALIZATION 12/2018 FOR AMS -- SHOWED RARE EPILEPTIFORM DISCHARGE. STARTED ON KEPPRA FOR PROPHYLAXIS-NO SEIZURES SINCE. Squamous cell carcinoma lung no chemo or radiation Tremor Surgical History History of bilateral cataract extraction History of bronchoscopy [facility] 01/04/19, MAC 3, ETT 8.0, GRADE VIEW I. History of detached retina repair right eye History of dilatation and curettage History of left oophorectomy History of Mohs micrographic surgery for skin cancer History of open reduction and internal fixation (ORIF) procedure right hip History of repair of left rotator cuff History of repair of right rotator cuff History of thumb surgery left History of tonsillectomy and adenoidectomy History of wisdom tooth extraction Hx of colonoscopy S/P bronchoscopy with biopsy (07/19/19) Endobronchial Ultrasound Flexible Bronchoscopy, biopsy with Cryoprobe, brushings, forceps Dr. Bowers 07/19/19 Family History Mother , age 80 ` s Alzheimer disease Colon cancer Father , age 80` s Alzheimer disease Sister Breast cancer had chemotherapy and radiation therapy at age45 Sister No problems noted. 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 Other Information That Helps Us Care for You: No Feels Safe at Home: Yes Safety Concerns: Feels Safe At This Time Smoking Status: Current some day smoker Tobacco Type: cigarettes ; Age Started Using Tobacco: 17 ; Age Quit Using Tobacco: 73 ; packs per day: 1 ; Cigarettes Per Day: very little ; Do You Dip or Chew Tobacco: No ; Second Hand Exposure: No ; Tobacco Cessation Education Requested by Patient: No Hx Alcohol Use: Yes Alcohol type: wine Alcohol type Comment: 1-2 glasses of wine a day Alcohol Intake Frequency: Daily Hx Substance Use: No Review of Systems Review of Systems: All systems reviewed & are unremarkable except as noted in HPI & below Physical Exam Physical Exam: General- confused Head- atraumatic Eyes- PERRL, EOMI, ENT- oropharynx clear Neck- supple, no JVD Lungs- clear to auscultation Heart- regular rhythm; no murmur Abdomen- normal bowel sounds, soft, nontender Extremities- no calf tenderness Neuro- alert, not oriented to time, place and person, PERRL, EOMI; no facial palsy; no dysarthria Skin- warm & dry Results & Data Vital Signs (Past 12 Hours) Vital Signs Temp Pulse Pulse Resp BP BP Pulse Ox 09/20/19 13:48 76 20 186/78 H 99 09/20/19 12:24 90 21 192/92 H 96 09/20/19 12:00 78 13 192/76 H 99 09/20/19 11:37 77 16 191/78 H 100 09/20/19 11:36 79 16 191/78 H 100 09/20/19 11:35 20 98 09/20/19 11:00 82 20 191/76 H 99 09/20/19 10:54 84 18 191/83 H 97 09/20/19 10:44 85 21 191/83 H 100 09/20/19 10:40 79 20 98 09/20/19 10:36 95 09/20/19 10:16 36.4 C L 77 14 181/87 H 95 09/20/19 10:12 80 17 100 09/20/19 10:08 70 16 181/87 [address] SCAN OF THE CERVICAL SPINE CLINICAL HISTORY: Fall. COMPARISON STUDY: No priors. TECHNIQUE: CT scan of the cervical spine is performed from the skull base to the upper thoracic spine. Images are reviewed in the axial, sagittal, and coronal planes. IV contrast was not administered for this examination. A dose lowering technique was utilized adhering to the principles of ALARA. CT DOSE: 831.29 mGy.cm FINDINGS: Skeletal structures: The skeletal structures are osteopenic. There is no evid ence of fracture or subluxation involving the cervical spine. Vertebral body height is maintained. There is minimal anterolisthesis at C3-C4, C4-C5, and C5- C6. Alignment is otherwise preserved. Anterior osteophytes are seen throughout. The odontoid process and lateral masses are intact. The atlantoaxial articulation is preserved noting productive degenerative change. The spinous processes appear intact. There is moderate multilevel cervical spondylosis. Uncovertebral and facet arthropathy contribute to neural foraminal stenosis at several levels. Intervertebral discs: The disc spaces are well maintained. Central canal: Widely patent. Soft tissues: The prevertebral and paraspinous soft tissues are within normal limits. Calcification is noted in the right lobe of the thyroid gland. There is atherosclerotic calcification of the carotid bulbs. Calvarium: The visualized calvarium at the skull base appears intact. Brain parenchyma: Partially visualized brain parenchyma the skull base is within normal limits. Sinuses and mastoids: The visualized paranasal sinuses are clear. The mastoid air cells are well pneumatized. Lung apices: Emphysematous change is noted at the apices. Apical lung parenchyma is otherwise clear as visualized. IMPRESSION: 1. There is no evidence of fracture or subluxation involving the cervical spine. 2. Osteopenia and spondylotic change as above. 3. Emphysema. ACT 112: Negative or not required by law. Electronically signed by: Marlon Stewart M.D. 09/20/2019 10:50 AM Dictated: 09/20/19 1046 Transcribed: 09/20/[address] OF THE HEAD WITHOUT CONTRAST CLINICAL HISTORY: Confusion. Evaluate for stroke or bleed. History of lung cancer. COMPARISON STUDY: Head CT January 16, 2019. MRI of the brain January 13, 2019. TECHNIQUE: Helical axial images of the head were obtained without IV contrast. Automated exposure control was utilized for the study. A dose lowering technique was utilized adhering to the principles of ALARA. FINDINGS: No acute intracranial hemorrhage, midline shift or mass effect is present. Hypodensity with evidence of volume loss within the right frontal and temporal lobes suggests sequela of the process shown on MRI of January 13, 2019 with resultant encephalomalacia. There is slight associated asymmetric dilatation of the right lateral ventricle. Basilar cisterns are patent. There are no extra axial collections. No calvarial fracture is present. Additional white matter hypodensities favor small vessel disease. IMPRESSION: 1. No acute intracranial findings. 2. Right temporal and frontal lobe hypodensity with mild volume loss which suggests sequela of the process shown on MRI of January 13, 2019 with resultant encephalomalacia. ACT 112: Negative or not required by law. Electronically signed by: Harris Barahona M.D. 09/20/2019 10:49 AM Dictated: 09/20/19 1040 Transcribed: 09/20/19 1040 CTA ANGIOGRAPHY OF THE HEAD CLINICAL HISTORY: oriented x1 repetitive eval for cva COMPARISON STUDY: Head CT January 16, 2019. MRI of the brain January 13 2019. TECHNIQUE: Helical axial images of the head were obtained following uneventful intravenous administration of 120 cc of Optiray 320. Automated exposure control was utilized for the study. A dose lowering technique was utilized adhering to the principles of ALARA. CT DOSE: 544.83 mGy.cm FINDINGS: No acute intracranial hemorrhage, midline shift or mass effect is present. There is mild encephalomalacia within the right temporal and frontal lobes. Basilar cisterns are patent. There are no extra axial collections. The right M1 and M2 segments are patent. The anterior cerebral arteries arise from the left internal carotid artery. The left M1 and M2 segments are patent. Posterior circulation is unremarkable. No intracranial aneurysm, dissection, thrombus or abrupt vessel cut off is identified. IMPRESSION: Unremarkable CTA of the head. ACT 112: Negative or not required by law. Electronically signed by: Harris Barahona M.D. 09/20/2019 12:02 PM Dictated: 09/20/19 1141 Transcribed: 09/20/[address] ANGIOGRAPHY OF THE NECK WITH CONTRAST CLINICAL HISTORY: oriented x1 repetitive eval for cva COMPARISON STUDY: CT of the cervical spine September 20, 2019. Technique: CT angiography of the carotid and vertebral arteries was obtained using Antenova 320 IV and 3D reconstruction on an independent workstation. NASCET criteria was utilized. Automated exposure control was utilized for the study. A dose lowering technique was utilized adhering to the principles of ALARA. Findings: Emphysema is noted within the lung apices. There is no cervical lymphadenopathy. There is no cervical spine fracture or suspicious osseous lesion. This exam is compromised by motion artifact which makes accurate evaluation of stenoses difficult. There is stenosis of the proximal right internal carotid artery. Patent lumen measures 1.3 mm in caliber. The distal right internal carotid artery measures 3.9 mm. There is also stenosis at the origin of the left internal carotid artery which is suboptimally assessed due to motion artifact. Patent lumen measures approximately 1.6 mm the distal cervical internal carotid artery measures 3.7 mm. The bilateral vertebral arteries are patent. There is mild to moderate stenosis at the origin of the left vertebral artery. There is no dissection within the major vessels of the neck. IMPRESSION: 1. At least moderate stenosis of the bilateral proximal internal carotid arteries which are difficult to evaluate given motion artifact. Approximate 70% stenosis of the proximal right internal carotid artery and 60% stenosis of the proximal left internal carotid artery. 2. No dissection within the major vessels of the neck. 3. Emphysema. ACT 112: Negative or not required by law. Electronically signed by: Harris Barahona M.D. 09/20/2019 11:54 AM Dictated: 09/20/19 1145 Transcribed: 09/20/19 1145 (1) Altered mental status Altered mental status type: unspecified Qualified Code(s): R41.82 - Altered mental status, unspecified
[2019-09-20] MEDS ORDERED: IBUPROFEN 200 MG TAB PO PRN (15:53)
[2019-09-20] MEDS ORDERED: LORazepam 0.25 MG/0.5 ML VIAL IV STA (16:05)
[2019-09-20] MEDS ORDERED: haloperidoL 0.5 MG TAB PO ONE (16:38)
--- NOTE | 2019-09-20 16:39 | Emergency Department Note ---
Entered by Nicolette Solis acting as a scribe for David Gonzalez MD History of Present Illness General Chief complaint: Confusion Time Seen by Provider: 09/20/19 10:17 Source: patient Limitations: altered mental status History of Present Illness Onset (ago): hour(s) (just prior to arrival) Location: head Pain Consistency: + other (persistent ) Quality: + other (confusion ) Associated symptoms: + headaches and + other (negative feeling numb or weak on one side; negative problems with speech; negative visual problems; positive fall) The patient is a 74 year old female who presents to the Emergency Room with complaints of persistent confusion that began just prior to arrival. Per EMS, the patient fell at approximately midnight, 10 hours prior to arrival, but the patient states that she does not remember this. EMS states that she was evaluated by EMS at the time and it was decided that she would not need to be transferred to the hospital. It is unclear whether or not she hit her head. The patient denies feeling numb or weak on one side. She states that she feels that her words are normal and she is having no problems with speech. The patient denies visual problems. The patient reports a headache. Home Medications Home Medications Medication Instructions Recorded Confirmed Type Spiriva with HandiHaler 1 cap INHALATION QAM 11/28/18 08/05/19 History calcium carbonate [Calcium 500] 500 mg PO QAM 11/28/18 08/05/19 History cyanocobalamin (vitamin B-12) 1,000 mcg PO QAM 11/28/18 08/05/19 History fluticasone propion-salmeterol 1 inh INHALATION BID 11/28/18 08/05/19 History [Advair Diskus] fluticasone propionate [Flonase 2 spry INTRANASAL HS 11/28/18 08/05/19 History Allergy Relief] montelukast [Singulair] 10 mg PO HS 11/28/18 08/05/19 History pantoprazole [Protonix] 40 mg PO QAM 11/28/18 08/05/19 History rosuvastatin [Crestor] 20 mg PO HS 11/28/18 08/05/19 History venlafaxine 150 mg PO QAM 11/28/18 08/05/19 History Women's Daily Formula 1 tab PO QAM 12/31/18 08/05/19 History Linzess 145 mcg PO QAM 01/11/19 08/05/19 History buspirone 5 mg PO TID 01/11/19 08/05/19 History cetirizine [Zyrtec] 10 mg PO PM 01/11/19 08/05/19 History levetiracetam [Keppra] 500 mg PO BID #60 tab 01/22/19 08/05/19 Rx ascorbic acid (vitamin C) [Vitamin 1,000 mg PO QAM 01/31/19 08/05/19 History C] ipratropium-albuterol 3 ml NEB QIDR PRN 01/31/19 08/05/19 History lorazepam [Ativan] 0.25 mg PO QAM 04/11/19 08/05/19 History mirtazapine [Remeron] 15 mg PO HS 04/11/19 08/05/19 History ibuprofen 400 mg PO Q6H PRN 04/23/19 08/05/19 History sulfamethoxazole 800 1 tab PO BID #41 tab 08/05/19 08/05/19 Rx mg-trimethoprim 160 mg tablet Allergies Allergy/AdvReac Type Severity Reaction Status Date / Time pollen extracts Allergy Intermediate CONGESTION Verified 09/20/19 10:37 Past Med/Surg History Medical History Anxiety Asthma Chronic constipation COPD (chronic obstructive pulmonary disease) Depression Encephalopathy HAD LP, SUGGESTED VIRAL ENCEPHALOPATHY, CONFIRMED HSV VIA PCR. TX WITH ACYCLOVIR. GERD (gastroesophageal reflux disease) controlled Hiatal hernia History of bronchitis History of colon polyps Hyperlipidemia On home oxygen therapy 2L O2 via NC HS and prn strenuous activity Osteoarthritis Scoliosis Seizure HAD EEG/MRI DURING HOSPITALIZATION 12/2018 FOR AMS -- SHOWED RARE EPILEPTIFORM DISCHARGE. STARTED ON KEPPRA FOR PROPHYLAXIS-NO SEIZURES SINCE. 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 History of detached retina repair right eye History of dilatation and curettage History of left oophorectomy History of Mohs micrographic surgery for skin cancer History of open reduction and internal fixation (ORIF) procedure right hip History of repair of left rotator cuff History of repair of right rotator cuff History of thumb surgery left History of tonsillectomy and adenoidectomy History of wisdom tooth extraction Hx of colonoscopy S/P bronchoscopy with biopsy (07/19/19) Endobronchial Ultrasound Flexible Bronchoscopy, biopsy with Cryoprobe, brushings, forceps Dr. Bowers 07/19/19 Family History Mother , age 80 ` s Alzheimer disease Colon cancer Father , age 80` s Alzheimer disease Sister Breast cancer had chemotherapy and radiation therapy at age45 Sister No problems noted. 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 Other Information That Helps Us Care for You: No Feels Safe at Home: Yes Safety Concerns: Feels Safe At This Time Smoking Status: Current some day smoker Tobacco Type: cigarettes ; Age Started Using Tobacco: 17 ; Age Quit Using Tobacco: 73 ; packs per day: 1 ; Cigarettes Per Day: very little ; Do You Dip or Chew Tobacco: No ; Second Hand Exposure: No ; Tobacco Cessation Education Requested by Patient: No Hx Alcohol Use: Yes Alcohol type: wine Alcohol type Comment: 1-2 glasses of wine a day Alcohol Intake Frequency: Daily Hx Substance Use: No Review of Systems See HPI for pertinent positives & negatives. and A total of 10 systems reviewed and were otherwise negative Physical Exam Vital Signs Vital Signs - 24 hr 09/20/19 10:08 09/20/19 10:12 09/20/19 10:16 Temperature 36.4 C L Temperature Source Oral Pulse Rate 70 80 77 Pulse Rate [Left Finger] Pulse Rate from SpO2 Sensor 70 79 Respiratory Rate 16 17 14 Blood Pressure 181/87 H 181/87 H Blood Pressure [Left Arm] Blood Pressure Mean 136 118 Blood Pressure Mean [Left Arm] Pulse Oximetry 100 100 95 Oxygen Delivery Method Nasal Cannula Oxygen Flow Rate 2 Sepsis Recent Fever Within 48 Hours No Sepsis New/Unexplained Change in Mental Status No Sepsis Action Taken by Nursing No Action Required 09/20/19 10:36 09/20/19 10:40 09/20/19 10:44 Temperature Temperature Source Pulse Rate 79 85 Pulse Rate [Left Finger] Pulse Rate from SpO2 Sensor 77 85 Respiratory Rate 20 21 Blood Pressure 191/83 H Blood Pressure [Left Arm] Blood Pressure Mean 118 Blood Pressure Mean [Left Arm] Pulse Oximetry 95 98 100 Oxygen Delivery Method Nasal Cannula Oxygen Flow Rate 2 Sepsis Recent Fever Within 48 Hours Sepsis New/Unexplained Change in Mental Status Sepsis Action Taken by Nursing 09/20/19 10:54 09/20/19 11:00 09/20/19 11:35 Temperature Temperature Source Pulse Rate 82 Pulse Rate [Left Finger] 84 Pulse Rate from SpO2 Sensor 80 80 Respiratory Rate 18 20 20 Blood Pressure 191/76 H Blood Pressure [Left Arm] 191/83 H Blood Pressure Mean 94 Blood Pressure Mean [Left Arm] 119 Pulse Oximetry 97 99 98 Oxygen Delivery Method Nasal Cannula Oxygen Flow Rate Sepsis Recent Fever Within 48 Hours Sepsis New/Unexplained Change in Mental Status Sepsis Action Taken by Nursing 09/20/19 11:36 09/20/19 11:37 09/20/19 12:00 Temperature Temperature Source Pulse Rate 77 78 Pulse Rate [Left Finger] 79 Pulse Rate from SpO2 Sensor 77 78 Respiratory Rate 16 16 13 Blood Pressure 191/78 H 192/76 H Blood Pressure [Left Arm] 191/78 H Blood Pressure Mean 94 133 Blood Pressure Mean [Left Arm] 115 Pulse Oximetry 100 100 99 Oxygen Delivery Method Nasal Cannula Oxygen Flow Rate 2 Sepsis Recent Fever Within 48 Hours Sepsis New/Unexplained Change in Mental Status Sepsis Action Taken by Nursing 09/20/19 12:24 09/20/19 13:48 Temperature Temperature Source Pulse Rate 90 Pulse Rate [Left Finger] 76 Pulse Rate from SpO2 Sensor 91 H Respiratory Rate 21 20 Blood Pressure 192/92 H Blood Pressure [Left Arm] 186/78 H Blood Pressure Mean 145 Blood Pressure Mean [Left Arm] 114 Pulse Oximetry 96 99 Oxygen Delivery Method Nasal Cannula Oxygen Flow Rate 2 Sepsis Recent Fever Within 48 Hours Sepsis New/Unexplained Change in Mental Status Sepsis Action Taken by Nursing Constitutional: Vital signs reviewed. Eyes: Pupils are equal round reactive to light. Conjunctiva are noninjected. ENT: Pharynx is clear without erythema or exudate. Mucous membranes are moist. Neck supple without meningeal signs. Respiratory: Clear to auscultation bilaterally. Breath sounds are equal bilaterally. Cardiovascular: Regular rate and rhythm. No rubs or gallops. GI: Soft, nondistended and nontender. Bowel sounds are present. Musculoskeletal: No peripheral edema. No lower extremity tenderness. Integumentary: No cyanosis. Neurological: She is only oriented to person. Repetitive questioning. The patient is awake and alert. Cranial nerves II-XII are intact. Motor is 5 out of 5 all extremities. Sensation is intact to light touch all extremities. Normal speech. No pronator drift. No limb ataxia. Psychiatric: Anxious appearing. Course Course 1018: Past medical records reviewed. The patient was evaluated in room B11B. A complete history and physical exam was performed. 1159: Upon reevaluation, the patient is still repetitively asking questions. She does not remember me or what is happening. The patient just got back from her CT angiogram. 1208: I discussed the case with Dr. Mejia Stroke Neurology who states that it does not sound like the patient is having an acute stroke. She recommends the patient getting an EEG and speaking to the Neurologist here. 1213: The [facility] Neurologist has been paged. 1219: I discussed the case with Dr. Swain Neurology who recommends no LP at this time and recommends an MRI and UA. 1231: Upon reassessment, the patient is still repetitively asking questions. I discussed the case with Augusta Bone PA-C who accepts the patient for further evaluation under Dr. Julian Hospitalist service. Administered Medications Discontinued Medications Levetiracetam 500 mg/ Dextrose 105 mls @ 440 mls/hr IV NOW STA Stop: 09/20/19 12:23 Last Infusion: 09/20/19 12:40 Dose: 0 mls/hr Documented by: [id number] Admin: 09/20/19 12:25 Dose: 440 mls/hr Documented by: [id number] Ioversol (Optiray 320 125ml) 120 ml IV ONCE PRN PRN Reason: Interaction Checking Stop: 09/24/19 11:26 Last Admin: 09/20/19 11:27 Dose: 120 ml Documented by: [id number] Critical Care Time Critical Care Time: Yes Total Critical Care Time: 35 I have personally spent approximately 35 minutes of critical care time in the direct management of this patient. This includes bedside care, interpretation of diagnostic studies, and testing, discussion with consultants, patient, and family members, and other required patient management activities. This approximately 35 minutes is in excess of all separately billable procedures. Medical Decision Making Differential Diagnosis Differential diagnoses include ICH, concussion, skull fracture, intracranial ma ss, CVA, TGA, and others were considered. Medical Records Attestation: I reviewed the patient's medical records. Previous H&P notes that she had an EEG in December 2018 for altered mental status which showed rare epileptic form discharge. The patient was started on Keppra at this time. 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 Home Medications Current Medication List: was personally reviewed by me Laboratory Data Attestation: I reviewed the patient's lab results. Result diagrams: 09/20/19 10:26 09/20/19 10:26 Lab Results 09/20/19 09/20/19 09/20/19 Range/Units 10:19 10:26 10:26 WBC 5.77 (4.8-10.8) K/uL RBC 4.57 (4.2-5.4) M/uL Hgb 14.3 (12.0-16.0) g/dL Hct 43.6 (37-47) % MCV 95.4 (80-100) fL MCH 31.3 (25-34) pg MCHC 32.8 (32-36) g/dL RDW Std Deviation 49.1 H (36.4-46.3) fL RDW Coeff of Yamini 14.1 (11.5-14.5) % Plt Count 263 (130-400) K/uL MPV 8.5 (7.4-10.4) fL Immature Gran % (Auto) 0.2 % Neut % (Auto) 70.9 % Lymph % (Auto) 19.8 % Ashley % (Auto) 8.0 % Eos % (Auto) 0.9 % Baso % (Auto) 0.2 % Immature Gran # (Auto) 0.01 (0.00-0.02) K/uL Neut # (Auto) 4.10 (1.4-6.5) K/uL Lymph # (Auto) 1.14 L (1.2-3.4) K/uL Ashley # (Auto) 0.46 (0.11-0.59) K/uL Eos # (Auto) 0.05 (0-0.5) K/uL Baso # (Auto) 0.01 (0-0.2) K/uL PT 10.4 (9.0-12.0) Seconds INR 1.0 (0.9-1.1) APTT 23.8 (21.0-31.0) Seconds PTT Ratio 0.9 Sodium (136-145) mmol/L Potassium (3.5-5.1) mmol/L Chloride (98-107) mmol/L Carbon Dioxide (21-32) mmol/L Anion Gap (3-11) BUN (7-18) mg/dl Creatinine (0.6-1.2) mg/dl Est Cr Clr Drug Dosing ml/min Est GFR ( Amer) Est GFR (Non-Af Amer) BUN/Creatinine Ratio (10-20) Glucose (70-99) mg/dl Calcium (8.5-10.1) mg/dl Magnesium (1.8-2.4) mg/dl Total Bilirubin (0.2-1) mg/dl AST (15-37) U/L ALT (12-78) U/L Alkaline Phosphatase (45-117) U/L Troponin I (0-0.045) ng/ml Total Protein (6.4-8.2) gm/dl Albumin (3.4-5.0) gm/dl Globulin (2.5-4.0) gm/dl Albumin/Globulin Ratio (0.9-2) Urine Color Yellow Urine Appearance Clear (Clear) Urine pH 6.5 (4.5-7.5) Ur Specific Perry 1.012 (1.000-1.030) Urine Protein Negative (Negative) Urine Glucose (UA) Negative (Negative) Urine Ketones Negative (Negative) Urine Blood Negative (Negative) Urine Nitrite Negative (Negative) Urine Bilirubin Negative (Negative) Urine Urobilinogen Negative (Negative) Ur Leukocyte Esterase Negative (Negative) Blood Type Antibody Screen 09/20/19 09/20/19 Range/Units 10:26 10:26 WBC (4.8-10.8) K/uL RBC (4.2-5.4) M/uL Hgb (12.0-16.0) g/dL Hct (37-47) % MCV (80-100) fL MCH (25-34) pg MCHC (32-36) g/dL RDW Std Deviation (36.4-46.3) fL RDW Coeff of Yamini (11.5-14.5) % Plt Count (130-400) K/uL MPV (7.4-10.4) fL Immature Gran % (Auto) % Neut % (Auto) % Lymph % (Auto) % Ashley % (Auto) % Eos % (Auto) % Baso % (Auto) % Immature Gran # (Auto) (0.00-0.02) K/uL Neut # (Auto) (1.4-6.5) K/uL Lymph # (Auto) (1.2-3.4) K/uL Ashley # (Auto) (0.11-0.59) K/uL Eos # (Auto) (0-0.5) K/uL Baso # (Auto) (0-0.2) K/uL PT (9.0-12.0) Seconds INR (0.9-1.1) APTT (21.0-31.0) Seconds PTT Ratio Sodium 143 (136-145) mmol/L Potassium 3.8 (3.5-5.1) mmol/L Chloride 108 H (98-107) mmol/L Carbon Dioxide 31 (21-32) mmol/L Anion Gap 4.0 (3-11) BUN 11 (7-18) mg/dl Creatinine 0.70 (0.6-1.2) mg/dl Est Cr Clr Drug Dosing 58.3 ml/min Est GFR ( Amer) 98.9 Est GFR (Non-Af Amer) 85.4 BUN/Creatinine Ratio 15.9 (10-20) Glucose 101 H (70-99) mg/dl Calcium 9.2 (8.5-10.1) mg/dl Magnesium 2.1 (1.8-2.4) mg/dl Total Bilirubin 0.4 (0.2-1) mg/dl AST 22 (15-37) U/L ALT 30 (12-78) U/L Alkaline Phosphatase 71 (45-117) U/L Troponin I < 0.015 (0-0.045) ng/ml Total Protein 6.9 (6.4-8.2) gm/dl Albumin 3.6 (3.4-5.0) gm/dl Globulin 3.3 (2.5-4.0) gm/dl Albumin/Globulin Ratio 1.1 (0.9-2) Urine Color Urine Appearance (Clear) Urine pH (4.5-7.5) Ur Specific Perry (1.000-1.030) Urine Protein (Negative) Urine Glucose (UA) (Negative) Urine Ketones (Negative) Urine Blood (Negative) Urine Nitrite (Negative) Urine Bilirubin (Negative) Urine Urobilinogen (Negative) Ur Leukocyte Esterase (Negative) Blood Type O Positive Antibody Screen NEGATIVE Imaging Data Radiologist's Impression: Radiology results as stated below per my review and the radiologist's interpretation: XR chest 1V portable HISTORY: 74 years-old Female ams eval for pna acutely altered mental status COMPARISON: Chest radiograph 07/19/2019, CTA neck 07/21/2020, chest CT 05/13/2019 TECHNIQUE: Portable AP view of the chest FINDINGS: Cardiac mediastinal and hilar silhouettes are within normal limits. No pneumothorax, large pleural effusion or overt pulmonary edema. Moderate emphysema with chronic fibrotic changes. Ill-defined 2.8 cm nodular right suprahilar opacity is unchanged. Mild bibasilar densities suggest atelectasis. Degenerative changes of the shoulders and spine. IMPRESSION: 1. Emphysema and chronic fibrotic changes without acute process. 2. 2.8 cm nodular right suprahilar opacity redemonstrated. ACT 112: Negative or not required by law. The above report was generated using voice recognition software. It may contain grammatical, syntax or spelling errors. Electronically signed by: Marvin Lopez M.D. 09/20/2019 12:[address] OF THE HEAD WITHOUT CONTRAST CLINICAL HISTORY: Confusion. Evaluate for stroke or bleed. History of lung cancer. COMPARISON STUDY: Head CT January 16, 2019. MRI of the brain January 13, 2019. TECHNIQUE: Helical axial images of the head were obtained without IV contrast. Automated exposure control was utilized for the study. A dose lowering technique was utilized adhering to the principles of ALARA. FINDINGS: No acute intracranial hemorrhage, midline shift or mass effect is present. Hypodensity with evidence of volume loss within the right frontal and temporal lobes suggests sequela of the process shown on MRI of January 13, 2019 with resultant encephalomalacia. There is slight associated asymmetric dilatation of the right lateral ventricle. Basilar cisterns are patent. There are no extra axial collections. No calvarial fracture is present. Additional white matter hypodensities favor small vessel disease. IMPRESSION: 1. No acute intracranial findings. 2. Right temporal and frontal lobe hypodensity with mild volume loss which suggests sequela of the process shown on MRI of January 13, 2019 with resultant encephalomalacia. ACT 112: Negative or not required by law. Electronically signed by: Harris Barahona M.D. 09/20/2019 10:[address] SCAN OF THE CERVICAL SPINE CLINICAL HISTORY: Fall. COMPARISON STUDY: No priors. TECHNIQUE: CT scan of the cervical spine is performed from the skull base to the upper thoracic spine. Images are reviewed in the axial, sagittal, and coronal planes. IV contrast was not administered for this examination. A dose lowering technique was utilized adhering to the principles of ALARA. CT DOSE: 831.29 mGy.cm FINDINGS: Skeletal structures: The skeletal structures are osteopenic. There is no evidence of fracture or subluxation involving the cervical spine. Vertebral body height is maintained. There is minimal anterolisthesis at C3-C4, C4-C5, and C5- C6. Alignment is otherwise preserved. Anterior osteophytes are seen throughout. The odontoid process and lateral masses are intact. The atlantoaxial articulation is preserved noting productive degenerative change. The spinous processes appear intact. There is moderate multilevel cervical spondylosis. Uncovertebral and facet arthropathy contribute to neural foraminal stenosis at several levels. Intervertebral discs: The disc spaces are well maintained. Central canal: Widely patent. Soft tissues: The prevertebral and paraspinous soft tissues are within normal limits. Calcification is noted in the right lobe of the thyroid gland. There is atherosclerotic calcification of the carotid bulbs. Calvarium: The visualized calvarium at the skull base appears intact. Brain parenchyma: Partially visualized brain parenchyma the skull base is within normal limits. Sinuses and mastoids: The visualized paranasal sinuses are clear. The mastoid air cells are well pneumatized. Lung apices: Emphysematous change is noted at the apices. Apical lung parenchyma is otherwise clear as visualized. IMPRESSION: 1. There is no evidence of fracture or subluxation involving the cervical spine. 2. Osteopenia and spondylotic change as above. 3. Emphysema. ACT 112: Negative or not required by law. Electronically signed by: Marlon Stewart M.D. 09/20/2019 10:50 AM CTA ANGIOGRAPHY OF THE HEAD CLINICAL HISTORY: oriented x1 repetitive eval for cva COMPARISON STUDY: Head CT January 16, 2019. MRI of the brain January 13 2019. TECHNIQUE: Helical axial images of the head were obtained following uneventful intravenous administration of 120 cc of Optiray 320. Automated exposure control was utilized for the study. A dose lowering technique was utilized adhering to the principles of ALARA. CT DOSE: 544.83 mGy.cm FINDINGS: No acute intracranial hemorrhage, midline shift or mass effect is present. There is mild encephalomalacia within the right temporal and frontal lobes. Basilar cisterns are patent. There are no extra axial collections. The right M1 and M2 segments are patent. The anterior cerebral arteries arise from the left internal carotid artery. The left M1 and M2 segments are patent. Posterior circulation is unremarkable. No intracranial aneurysm, dissection, thrombus or abrupt vessel cut off is identified. IMPRESSION: Unremarkable CTA of the head. ACT 112: Negative or not required by law. Electronically signed by: Harris Barahona M.D. 09/20/2019 12:[address] ANGIOGRAPHY OF THE NECK WITH CONTRAST CLINICAL HISTORY: oriented x1 repetitive eval for cva COMPARISON STUDY: CT of the cervical spine September 20, 2019. Technique: CT angiography of the carotid and vertebral arteries was obtained using Optiray 320 IV and 3D reconstruction on an independent workstation. NASCET criteria was utilized. Automated exposure control was utilized for the study. A dose lowering technique was utilized adhering to the principles of ALARA. Findings: Emphysema is noted within the lung apices. There is no cervical lymphadenopathy. There is no cervical spine fracture or suspicious osseous lesion. This exam is compromised by motion artifact which makes accurate evaluation of stenoses difficult. There is stenosis of the proximal right int ernal carotid artery. Patent lumen measures 1.3 mm in caliber. The distal right internal carotid artery measures 3.9 mm. There is also stenosis at the origin of the left internal carotid artery which is suboptimally assessed due to motion artifact. Patent lumen measures approximately 1.6 mm the distal cervical internal carotid artery measures 3.7 mm. The bilateral vertebral arteries are patent. There is mild to moderate stenosis at the origin of the left vertebral artery. There is no dissection within the major vessels of the neck. IMPRESSION: 1. At least moderate stenosis of the bilateral proximal internal carotid arteries which are difficult to evaluate given motion artifact. Approximate 70% stenosis of the proximal right internal carotid artery and 60% stenosis of the proximal left internal carotid artery. 2. No dissection within the major vessels of the neck. 3. Emphysema. ACT 112: Negative or not required by law. Electronically signed by: Harris Barahona M.D. 09/20/2019 11:54 AM ECG Data Attestation: I personally reviewed and interpreted this ECG as follows: Indication: + other (stroke-like symptoms) Rate (beats per minute): 81 Rhythm: + normal sinus ECG Intervals/blocks: + Normal QRS ECG Flushing: + Normal ECG ST segments: no ST elevation ECG Findings: no PVCs Blood Pressure Blood Pressure Findings: Elevated blood pressure Blood Pressure Disposition: Referred to patients primary care provider MDM Narrative I did evaluate the patient as noted above. The patient is presenting with altered mental status. She is only oriented to person and repeatedly asks where she is and why she is here. Cannot remember anything that happened recently. She did fall according to EMS 10 hours prior to arrival but was not brought to the emergency department at that time. It is unclear what was involved in the fall or whether or not she hit her head. She is not a IV TPA candidate as we do not know when her last well was other than possibly midnight. IV access was established. The patient was placed on a continuous copywriter. I did order a CT of the head. I did review the images myself as well as the radiology report as described above. There is no evidence of acute stroke or ICH. I did order and personally review the patient's 12-lead EKG as described above. She has no acute ischemic changes or dysrhythmia. I did order and personally reviewed the images of the patient's chest x-ray as described above. She has emphysematous changes without acute process. I did order a urine analysis. I did order and review the patient's blood work as noted in the electronic medical record. CBC is unremarkable without anemia or leukocytosis. Her electrolytes are unremar kable. I did order a CT angiogram of the head and neck. This demonstrated some bilateral ICA stenosis. There is no other significant stenosis or abnormality in the CTA of the head. I did reevaluate the patient multiple times. Each time she did not recognize me and I had to re-explained to her what was happening. I did speak to the neurologist on-call who recommended hospitalization and MRI. I did order the MRI of the brain and discussed the case with the hospitalist and home health care case manager. Impression & Plan Stroke-like symptoms, Altered mental status, Fall, Anterograde amnesia Discharge Plan Visit Data *Final* Discharge Date/Time: 09/20/19 15:34 Chief Complaint: Confusion ED Provider: David Gonzalez Discharge Problem: Stroke-like symptoms, Altered mental status, Fall, Anterograde amnesia Patient Disposition: Admitted As Inpatient Discharge Instructions Interventions: ED Discharge Assessment Last Done: 09/20/19 15:34 Discharge Problem: Altered mental status Qualifiers: Altered mental status type: unspecified Qualified Code(s): R41.82 - Altered mental status, unspecified Fall Qualifiers: Encounter type: initial encounter Qualified Code(s): W19.XXXA - Unspecified fall, initial encounter The scribe's documentation has been prepared under my direction and personally reviewed by me in its entirety. I confirm that the note above accurately reflects all work, treatment, procedures, and medical decision making performed by me.
[2019-09-20] MEDS ORDERED: HydrALAZINE HCL 20 MG/ML VIAL IV PRN (16:50)
[2019-09-20] MEDS: FLUTICASONE/SALMETEROL (ADVAIR) 500/50 INH 14 PUFF INH SCH (20:07)
[2019-09-20] MEDS: levETIRAcetam 500 MG TAB PO SCH (20:09)
[2019-09-20] MEDS: ALBUT/IPRATROP 3MG/0.5MG NEB 3 ML VIAL NEB PRN ×2 (20:22→20:23)
[2019-09-20] MEDS ORDERED: LORazepam 2 MG/4 ML VIAL ONE (20:23)
[2019-09-20] MEDS ORDERED: MONTELUKAST SODIUM 10 MG TABLET PO SCH (21:00)
[2019-09-20] MEDS ORDERED: CETIRIZINE HCL 10 MG TABLET PO SCH (21:00)
[2019-09-20] MEDS ORDERED: MIRTAZAPINE TAB 15 MG TAB PO SCH (21:00)
[2019-09-20] MEDS ORDERED: ROSUVASTATIN CALCIUM 20 MG TAB PO SCH (21:00)
[2019-09-20] MEDS ORDERED: GADOBUTROL 65ML VIAL IV PRN (21:16)
--- NOTE | 2019-09-20 22:18 | Magnetic Resonance Report ---
Brain MRI WITH AND WITHOUT CONTRAST HISTORY: Repetitive behavior. Eval for cva TECHNIQUE: Multiplanar multisequence MRI of the brain was performed both before and after the intrave nous administration of contrast. COMPARISON STUDY: Head CT 09/20/2019. Brain MRI 01/13/2019. FINDINGS: No areas of restricted diffusion to suggest acute infarction. There is no mass, hematoma, m idline shift. Interval encephalomalacia within the right anterior temporal lobe. T2 hyperintensity wi thin the majority of the residual right temporal lobe has progressed. There is now abnormal T2 signal within the right frontal lobe left anterior temporal lobe white matter which is new from the prior s tudy. There is also progressive T2 signal abnormality within the periventricular white matter of the supratentorial brain. There may be trace fluid within the temporal horn of the left lateral ventricle best seen on coronal image 13. There is motion artifact through the temporal lobes resulting in subo ptimal evaluation. Mild atrophic changes again noted within the brain. The major vascular flow voids at the skull base are now well-visualized but likely intact. Paranasal sinuses and mastoid air cells are clear. The midline structures are intact. IMPRESSION: 1. Interval encephalomalacia within the right anterior temporal lobe compared to the prior brain MRI. The T2 hyperintensity within the residual right temporal lobe and right frontal lobe white matter vergara s progressed. There has been interval development of abnormal T2 signal within the left anterior temp oral lobe and progressive T2 signal abnormality throughout the periventricular white matter of the conroy pratentorial brain. There is also suggestion of trace fluid within the temporal horn of the left late ral ventricle. Therefore, this suggests an acute on chronic process such as a limbic encephalitis. He rpes encephalitis is not entirely excluded but considered less likely given the chronic nature of the se findings. 2. No acute infarct. 3. Suboptimal study due to motion artifact. ACT 112: Negative or not required by law. Electronically signed by: Jonny Hernandez M.D. 09/20/2019 10:17 PM
[2019-09-21 06:13] LABS: Hematocrit (blood only) 38.4 % (37-47); Hemoglobin 12.7 g/dL (12.0-16.0); Mean Corpuscular Hemoglobin 31.2 pg (25-34); Mean Corpuscular Hgb Conc 33.1 g/dL (32-36); Mean Corpuscular Volume 94.3 fL (80-100); Mean Platelet Volume 8.6 fL (7.4-10.4); Platelet Count 252 K/uL (130-400); RDW Coefficient of Variation 14.1 % (11.5-14.5); RDW Standard Deviation 48.6 fL (36.4-46.3); Red Blood Count 4.07 M/uL (4.2-5.4); White Blood Count 5.45 K/uL (4.8-10.8)
[2019-09-21 06:51] LABS: BUN Creatinine Ratio 14.1 (10-20); Calcium 8.7 mg/dl (8.5-10.1); Creatinine Clr Calc Pharmacy 70.4 ml/min; Est GFR (African American) 105.2; Est GFR (Non-African American) 90.8; Potassium 3.5 mmol/L (3.5-5.1)
--- NOTE | 2019-09-21 07:40 | Electrocardiogram Report ---
Test Reason : Blood Pressure : / mmHG Vent. Rate : 081 BPM Atrial Rate : 081 BPM P-R Int : 144 ms QRS Dur : 072 ms QT Int : 404 ms P-R-T Axes : 073 069 082 degrees QTc Int : 469 ms Poor data quality, interpretation may be adversely affected Normal sinus rhythm Nonspecific ST abnormality Abnormal ECG When compared with ECG of 11-APR-2019 12:15, No significant change was found Confirmed by Jamal Youssef ([id number]) on 09/21/2019 7:40:22 AM Referred By: REFERRED SELF Confirmed By:Varun Youssef
[2019-09-21] MEDS: levETIRAcetam 500 MG TAB PO SCH (08:35)
[2019-09-21] MEDS: FLUTICASONE/SALMETEROL (ADVAIR) 500/50 INH 14 PUFF INH SCH (08:35)
[2019-09-21] MEDS ORDERED: CALCIUM CARBONATE 1250MG TAB PO SCH (09:00)
[2019-09-21] MEDS ORDERED: TIOTROPIUM BROMIDE 5 PUFF/90 MCG INH INH SCH (09:00)
[2019-09-21] MEDS ORDERED: PANTOprazole 40 MG TAB PO SCH (09:00)
[2019-09-21] MEDS ORDERED: ASCORBIC ACID 500 MG TAB PO SCH (09:00)
[2019-09-21] MEDS ORDERED: MULTIVITAMIN TAB PO SCH (09:00)
[2019-09-21] MEDS ORDERED: CYANOCOBALAMIN 500 MCG TABLET (VITAMIN B-12) PO SCH (09:00)
[2019-09-21] MEDS ORDERED: LINACLOTIDE 72 MCG CAPSULE PO SCH (09:00)
[2019-09-21] MEDS ORDERED: ENOXAPARIN INJ 30 MG/0.3 ML SYR SQ SCH (09:00)
[2019-09-21] MEDS ORDERED: VENLAFAXINE HCL XR 150 MG CAPXR PO SCH (09:00)
--- NOTE | 2019-09-21 10:29 | Neurology Progress Note ---
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 Patient memory improved this morning. Speech is clear. Comprehension is intact. No seizures noted overnight. UA Negative. MRI brain showed T2 FLAIR signal changes in bilateral temporal lobes suggestive of a limbic encephalitis. Patient is afebrile. No leukocytosis. She is not encephalopathic appearing. 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 Given her increased confusion yesterday and amnesia possible postical secondary to unwitnessed seizure. Would increase Keppra to 750 mg BID. Will need repeat LP with CSF studies including protein, glucose, cell count, HSV, EBV, cytopathology, and CSF paraneoplastic studies. Would also order serum paraneoplastic panel. Would obtain EEG. Recommend consulting oncology and infectious disease. 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 I believe the patient would benefit from transfer to [facility]. (2) Anterograde amnesia: (3) Endobronchial mass: Subjective Patient was seen examined. Patient's friends, bedside nurse, and Dr. Arrington at bedside. Patient anxious appearing. No acute events overnight. Short term memory has improved. Had MRI yesterday. Physical Exam Physical Exam: EXAM: Constitutional: anxious, appears stated age, mild distress Head and Face: normocephalic and atraumatic Eyes: normal lids, normal conjunctiva Neck: supple Respiratory: normal effort Cardiovascular: regular rhythm Abdomen: non distended Skin: no rashes, lesions, or ulcers noted Psychiatric:anxious NEUROLOGIC EXAMINATION: Appearance: mild distress Orientation: awake, alert and oriented to place, day of the weak, Mental Status: alert Memory:Recall is poor and ask repetitive questions although improved from yesterday Attention: Ok Knowledge: Poor Language: she can repeat and following simple commands Speech: no dysarthria Cranial Nerves: CN 2 - no visual defect on confrontation and pupils round CN 3, 4, 6 - extra-ocular movements intact CN 5 - facial sensation intact CN 7 - no facial asymmetry CN 8 - intact hearing CN 9, 10 - palate symmetric CN 11 - good shoulder shrug CN 12 - tongue midline Gait: deferred Coordination: no tremor or dyskiensias Sensory: intact to light touch Muscle Tone: normal Muscle exam: No focal weakness Results & Data Vital Signs (Past 12 Hours) Vital Signs Temp Pulse Resp BP BP Pulse Ox 09/21/19 07:15 36.6 C 75 20 173/84 H 95 09/20/19 23:24 36.7 C 90 18 143/77 H 98 Laboratory Results WBC 5.45 Diagnostic Findings MRI brain w/wo: 1. Interval encephalomalacia within the right anterior temporal lobe compared to the prior brain MRI. The T2 hyperintensity within the residual right temporal lobe and right frontal lobe white matter has progressed. There has been interval development of abnormal T2 signal within the left anterior temporal lobe and progressive T2 signal abnormality throughout the periventricular white matter of the supratentorial brain. There is also suggestion of trace fluid within the temporal horn of the left lateral ventricle. Therefore, this suggests an acute on chronic process such as a limbic encephalitis. Herpes encephalitis is not entirely excluded but considered less likely given the chronic nature of these findings. 2. No acute infarct. 3. Suboptimal study due to motion artifact.
[2019-09-21] MEDS ORDERED: LORazepam 0.5 MG TAB PO PRN (12:08)
--- NOTE | 2019-09-21 12:12 | Hospitalist Progress Note ---
Date of Service September 21, 2019 Assessment & Plan (1) Altered mental status: Encephalopathy: Due to limbic encephalitis H/O HSV encephalitis and lung cancer --MRI Brain:Interval encephalomalacia within the right anterior temporal lobe compared to the prior brain MRI. The T2 hyperintensity within the residual right temporal lobe and right frontal lobe white matter has progressed. There has been interval development of abnormal T2 signal within the left anterior temporal lobe and progressive T2 signal abnormality throughout the periventricular white matter of the supratentorial brain. There is also suggestion of trace fluid within the temporal horn of the left lateral ventricle. Therefore, this suggests an acute on chronic process such as a limbic encephalitis. Herpes encephalitis is not entirely excluded but considered less likely given the chronic nature of these findings. No acute infarct. --Neck CTA:At least moderate stenosis of the bilateral proximal internal carotid arteries which are difficult to evaluate given motion artifact. Approximate 70% stenosis of the proximal right internal carotid artery and 60% stenosis of the proximal left internal carotid artery. No dissection within the major vessels of the neck. Emphysema. --Head CTA:Unremarkable CTA of the head. UA not suggestive of UTI --Given concern for a paraneoplastic limbic encephalitis flare, patient will be transferred to [facility] for further evaluation and management --Discussed with Dr.Varun Mayorga at [facility] who kindly accepted the patient for further management --Continue Keppra for now --Memory improved --Continue neurochecks --? 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 Bowers. Pathology consistent with squamous cell Ca. Follow up outpatient COPD Home oxygen supplement As the patient Continue home inhalers Spiriva and advair HTN Continue current meds DVT Px Lovenox SQ CODE Status full code Disposition Transfer to [facility] for further evaluation and management Accepting physician: Dr.Varun Mayorga, Neurology Resides at the [facility] Son # [phone] Subjective Patient is seen and examined at bedside Patient is doing better today Reports intermittent headache Denies any blurry vision Memory is better today Also denies any chest pain, SOB, dizziness Discussed with Neurology today Given concern for paraneoplastic limbic encephalitis--patient will be transferred to [facility] for further evaluation and management Review of Systems Review of Systems: All systems reviewed & are unremarkable except as noted in HPI & below Physical Exam Physical Exam: Physical Exam: Vitals signs as noted above General Appearance:Moderately built and nourished, no apparent distress Head: normocephalic, Atraumatic Eyes: normal inspection, EOMI Neck: supple, Trachea midline Respiratory/Chest: Decreased breath sounds, CTA Cardiovascular: S1, S2, No murmur Abdomen/GI:Soft, Non tender, Bowel sounds present Extremities/Musculoskelatal:normal inspection, no edema Neurologic/Psych:AAOX3, grossly no focal neurological deficits Skin: normal color, warm Results & Data Vital Signs (Past 12 Hours) Vital Signs Temp Pulse Resp BP Pulse Ox 09/21/19 07:15 36.6 C 75 20 173/84 H 95 Laboratory Results Short CBC 09/21/19 Range/Units 05:14 WBC 5.45 (4.8-10.8) K/uL Hgb 12.7 (12.0-16.0) g/dL Hct 38.4 (37-47) % Plt Count 252 (130-400) K/uL BMP 09/21/19 05:14 Sodium 140 Potassium 3.5 Chloride 107 Carbon Dioxide 31 BUN 8 Creatinine 0.58 L Glucose 97 Calcium 8.7 Urine 09/20/19 Range/Units 10:19 Urine Color Yellow Urine Appearance Clear (Clear) Urine pH 6.5 (4.5-7.5) Ur Specific [place] 1.012 (1.000-1.030) Urine Protein Negative (Negative) Urine Glucose (UA) Negative (Negative) (1) Altered mental status Altered mental status type: unspecified Qualified Code(s): R41.82 - Altered mental status, unspecified
--- NOTE | 2019-09-21 12:33 | Discharge Summary ---
Date of Service September 21, 2019 Admission HPI Per Admitting Provider 73 years old female with past medical history of COPD on chronic oxygen dyslipidemia, osteoporosis, herpes encephalitis anxiety who resides at the [facility], was brought by EMS for confusion patient is a very poor historian. When I entered her room she was talking on the phone with her daughter. most of the history obtained from staff at the [facility] and son Kostas over the phone. As per staff at the [facility] patient fell last night where she called EMS and the maintenance mgr at the [facility]. When EMS came last night they evaluated patient and she was found to be stable they did not take her to the hospital. The maintenance mgr left a note for the staff to check on her this morning. When the staff check on her this morning patient was found to be confused. As per staff, patient is independent since she lives at independent living facility at [facility]. Patient said that she does not know what happened and she does not remember anything. She said when she woke up she found herself in the hospital. When I asked patient what was the last thing that she remembered and she could not tell. She said that she did not see her family over Christopher but when I spoke to son, patient had some family member that came to visit her for the holiday. Patient said that she is very anxious because she cannot remember anything. In December she was admitted for altered mental status and was diagnosed for HSV encephalitis. Son said since after her last hospitalization she has been having on and off confusion. Currently she is very anxious and asking for her son and her daughter. I told her that she just spoke to her daughter few minutes ago, she did not recall that she just spoke to her daughter. Patient denies any chest pain, palpitation, dizziness, fever, cough and shortness of breath. Admission Exam Per Admitting Provider Physical Exam Physical Exam: General- confused Head- atraumatic Eyes- PERRL, EOMI, ENT- oropharynx clear Neck- supple, no JVD Lungs- clear to auscultation Heart- regular rhythm; no murmur Abdomen- normal bowel sounds, soft, nontender Extremities- no calf tenderness Neuro- alert, not oriented to time, place and person, PERRL, EOMI; no facial palsy; no dysarthria Skin- warm & dry Principal Diagnosis Paraneoplastic limbic encephalitis Discharge Data Allergies Allergy/AdvReac Type Severity Reaction Status Date / Time pollen extracts Allergy Intermediate CONGESTION Verified 09/20/19 10:37 Consultations 09/20/19 12:30 ED Decision to Admit Stat 09/20/19 15:53 Consult Neurology Routine 09/21/19 11:53 Burn CD for patient Routine Procedures Performed --MRI Brain:Interval encephalomalacia within the right anterior temporal lobe compared to the prior brain MRI. The T2 hyperintensity within the residual right temporal lobe and right frontal lobe white matter has progressed. There has been interval development of abnormal T2 signal within the left anterior temporal lobe and progressive T2 signal abnormality throughout the periventricular white matter of the supratentorial brain. There is also suggestion of trace fluid within the temporal horn of the left lateral ventricle. Therefore, this suggests an acute on chronic process such as a limbic encephalitis. Herpes encephalitis is not entirely excluded but considered less likely given the chronic nature of these findings. No acute infarct. --Neck CTA:At least moderate stenosis of the bilateral proximal internal carotid arteries which are difficult to evaluate given motion artifact. Approximate 70% stenosis of the proximal right internal carotid artery and 60% stenosis of the proximal left internal carotid artery. No dissection within the major vessels of the neck. Emphysema. --Head CTA:Unremarkable CTA of the head. Ordered Studies 09/20/19 10:22 CT cervical spine wo con Stat CT head/brain wo con Stat 09/20/19 11:11 CT angio head w con Stat CT angio neck with con Stat 09/20/19 12:22 MR brain wo/w con Stat Hospital Course (1) Altered mental status: Encephalopathy: Due to limbic encephalitis H/O HSV encephalitis and lung cancer --MRI Brain:Interval encephalomalacia within the right anterior temporal lobe compared to the prior brain MRI. The T2 hyperintensity within the residual right temporal lobe and right frontal lobe white matter has progressed. There has been interval development of abnormal T2 signal within the left anterior temporal lobe and progressive T2 signal abnormality throughout the periventricular white matter of the supratentorial brain. There is also suggestion of trace fluid within the temporal horn of the left lateral ventricle. Therefore, this suggests an acute on chronic process such as a limbic encephalitis. Herpes encephalitis is not entirely excluded but considered less likely given the chronic nature of these findings. No acute infarct. --Neck CTA:At least moderate stenosis of the bilateral proximal internal carotid arteries which are difficult to evaluate given motion artifact. Approximate 70% stenosis of the proximal right internal carotid artery and 60% stenosis of the proximal left internal carotid artery. No dissection within the major vessels of the neck. Emphysema. --Head CTA:Unremarkable CTA of the head. UA not suggestive of UTI --Given concern for a paraneoplastic limbic encephalitis flare, patient will be transferred to [facility] for further evaluation and management --Discussed with Dr.Varun Mayorga at [facility] who kindly accepted the patient for further management --Continue Keppra for now --Memory improved --Continue neurochecks --? 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 Bowers. Pathology consistent with squamous cell Ca. Follow up outpatient COPD Home oxygen supplement As the patient Continue home inhalers Spiriva and advair HTN Continue current meds DVT Px Lovenox SQ CODE Status full code Disposition Transfer to [facility] for further evaluation and management Accepting physician: Dr.Varun Mayorga, Neurology Resides at the [facility] Son # [phone] Total Time Total Time Spent Total Time Spent (In Minutes): 45 minutes Total Time Includes: Examination of the Patient, Discharge Planning, Medication Reconciliation, Communication With Other Providers and Other Discharge Plan Discharge Items Patient Disposition: Transfer Acute Care Hospital Reason For Visit: CONFUSION Discharge Diagnosis: Limbic encephalitis Activity: Per Instructions section Exercise/Sports: Gradually increase as tolerated Non-emergency contact: Primary Care Provider and Neurologist Call non-emergency contact if: you have any medication questions, your symptoms worsen, your pain is not controlled, your pain is worsening, your pain is unusual for you, your pain is concerning for you and you have a fever Follow-up/Referrals: [facility] Dre Leos [Primary Care Provider] - Diet: Heart Healthy Addtl Attending Provider Instructions: Follow up with Dr.Varun Mayorga, Neurologist at [facility] for further evaluation and management Pending Studies at Discharge: No Stand-Alone Forms: My [facility] Skilled Items Patient informed of condition?: Yes DNR: No Discharge Level of Care: Other Communicable Disease: No Discharge Prognosis: Stable Lines: Peripheral IV Urinary Catheter: No Medications and DC Order Prescriptions: Continued sulfamethoxazole-trimethoprim 800-160 mg tablet 1 tab PO BID Qty: 41 RF: 0 Women's Daily Formula 27-0.4 mg Tablet 1 tab PO QAM RF: 0 ascorbic acid (vitamin C) [Vitamin C] 1,000 mg Tablet 1,000 mg PO QAM RF: 0 ipratropium-albuterol 0.5 mg-3 mg(2.5 mg base)/3 mL solution for nebulization 3 ml NEB QIDR PRN (Reason: SHORT OF BREATH) RF: 0 buspirone 5 mg tablet 5 mg PO TID RF: 0 cetirizine [Zyrtec] 10 mg Tablet 10 mg PO PM RF: 0 Linzess 145 mcg capsule 145 mcg PO QAM RF: 0 levetiracetam [Keppra] 500 mg Tablet 500 mg PO BID Qty: 60 RF: 0 lorazepam [Ativan] 0.5 mg tablet 0.25 mg PO QAM RF: 0 mirtazapine [Remeron] 15 mg tablet 15 mg PO HS RF: 0 fluticasone propionate [Flonase Allergy Relief] 50 mcg/actuation spray,suspension 2 spry Intranasal HS RF: 0 montelukast [Singulair] 10 mg tablet 10 mg PO HS RF: 0 pantoprazole [Protonix] 40 mg tablet,delayed release (DR/EC) 40 mg PO QAM RF: 0 fluticasone propion-salmeterol [Advair Diskus] 500-50 mcg/dose Blister With Device 1 inh INHALATION BID RF: 0 rosuvastatin [Crestor] 20 mg tablet 20 mg PO HS RF: 0 Spiriva with HandiHaler 18 mcg Capsule, W/Inhalation Device 1 cap INHALATION QAM RF: 0 venlafaxine 150 mg Tablet Extended Release 24hr 150 mg PO QAM RF: 0 calcium carbonate [Calcium 500] 500 mg calcium (1,250 mg) Tablet 500 mg PO QAM RF: 0 cyanocobalamin (vitamin B-12) 1,000 mcg Tablet 1,000 mcg PO QAM RF: 0 ibuprofen 200 mg Tablet 400 mg PO Q6H PRN (Reason: Pain) RF: 0 Discharge Orders: Discharge Order (Routine); Ordered 09/21/19 Ordered By: Skyler Arrington Admission Data Admit Date/Time: 09/20/19 14:30 Attending Provider: Skyler Arrington Admit Provider: Petra Box Primary Care Provider: Dre Alcala Other Providers: Petra Box ; Omar Rodriguez Other Interventions: Discharge Summary Assessment (RN) Last Done: 09/21/19 18:52
[2019-09-21] MEDS ORDERED: bisacodyL 5 MG TABEC PO PRN (16:41)
== END 2019-09-21 19:59 | disposition short-term general hospital (02) | DRG 98 ==
LOC: ED 10:05 → 4W 14:30 → SUATTDRO 14:30 → 4W 15:34

== ENCOUNTER 2020-08-14 08:28 | Inpatient (IN) ==
[2020-08-14] MEDS ORDERED: AZITHROMYCIN 250 MG TAB PO ONE (09:06)
[2020-08-14] MEDS ORDERED: DEXAMETHASONE SOD INJ 10 MG/ML VIAL IV ONE (09:06)
[2020-08-14] MEDS ORDERED: MAGNESIUM SULFATE / D5W 1 GM/100 ML BAG IV STA (09:08)
[2020-08-14] MEDS ORDERED: ACETAMINOPHEN 1,000 MG/100 ML VIAL IV STA (09:09)
[2020-08-14 09:18] LABS: Basophils # (auto) 0.01 K/uL (0-0.2); Basophils % (auto) 0.1 %; Hematocrit (blood only) 37.9 % (37-47); Hemoglobin 12.1 g/dL (12.0-16.0); Immature Granulocytes # (auto) 0.02 K/uL (0.00-0.02); Immature Granulocytes % (auto) 0.2 %; Lymphocytes # (auto) 0.77 K/uL (1.2-3.4); Lymphocytes % (auto) 8.7 %; Mean Corpuscular Hemoglobin 31.2 pg (25-34); Mean Corpuscular Hgb Conc 31.9 g/dL (32-36); Mean Corpuscular Volume 97.7 fL (80-100); Mean Platelet Volume 9.2 fL (7.4-10.4); Monocytes # (auto) 0.54 K/uL (0.11-0.59); Monocytes % (auto) 6.1 %; Neutrophils # (auto) 7.53 K/uL (1.4-6.5); Neutrophils % (auto) 84.9 %; Platelet Count 198 K/uL (130-400); RDW Coefficient of Variation 13.7 % (11.5-14.5); RDW Standard Deviation 48.2 fL (36.4-46.3); Red Blood Count 3.88 M/uL (4.2-5.4); White Blood Count 8.87 K/uL (4.8-10.8)
[2020-08-14 10:06] LABS: Partial Thromboplastin Time 28.4 Seconds (21.0-31.0); Prothrombin Time 10.5 Seconds (9.0-12.0)
[2020-08-14 10:16] LABS: Alanine Aminotransferase 28 U/L (12-78); Albumin Level 3.1 gm/dl (3.4-5.0); Aspartate Aminotransferase 22 U/L (15-37); BUN Creatinine Ratio 19.4 (10-20); Blood Urea Nitrogen 17 mg/dl (7-18); Calcium 8.5 mg/dl (8.5-10.1); Carbon Dioxide 34 mmol/L (21-32); Chloride 103 mmol/L (98-107); Creatinine Clr Calc Pharmacy 45.4 ml/min; Est GFR (Non-African American) 64.7; Glucose 87 mg/dl (70-99); Magnesium 1.9 mg/dl (1.8-2.4); Potassium 3.2 mmol/L (3.5-5.1); Sodium 140 mmol/L (136-145)
[2020-08-14] MEDS ORDERED: POTASSIUM CHLORIDE CRTAB 20 MEQ TABCR PO STA (10:17)
[2020-08-14 10:22] LABS: Albumin Globulin Ratio 0.8 (0.9-2); Alkaline Phosphatase 73 U/L (45-117); Bilirubin,Total 0.3 mg/dl (0.2-1); C Reactive Protein 7.32 mg/dl (0-0.29); Creatine Kinase 52 U/L (26-192); Creatine Kinase MB 2.2 ng/ml (0.5-3.6); Ferritin 41.3 ng/ml (8-388); Globulin 3.7 gm/dl (2.5-4.0); Total Protein 6.8 gm/dl (6.4-8.2); Troponin I < 0.015 ng/ml (0-0.045)
--- NOTE | 2020-08-14 10:23 | XRay Report ---
XR chest 1V portable HISTORY: SEPSIS COMPARISON: Chest 06/11/2020. FINDINGS: No pneumothorax. No pleural effusions. The heart remains mildly enlarged. No evidence for p ulmonary edema. Emphysema. Mild diffuse interstitial thickening is noted. There are patchy left base airspace opacities. IMPRESSION: 1. Small patchy left basilar airspace opacities. This could represent atelectasis or pneumonia. 2. Emphysema. ACT 112: Negative or not required by law. Electronically signed by: Jonny Hernandez M.D. 08/14/2020 10:22 AM
--- NOTE | 2020-08-14 11:27 | History & Physical Report ---
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 ESR 32 CRP 7.32 ALT28 procalcitonin 0.06 trop < 0.015 CK 52 CXR reviewed, blood cultures and dimer pending admit to PCU Start Remdesivir 200mg x 1day; 100mg IV x 4 days Dexamethasone 6mg IV daily titrate O2 accordingly encourage pulmonary toilet q1wa encourage self proning consult pulmonary defer to Dr. Pennington addendum for further discussion regarding convalescent plasma and antibiotic indication (3) Hypokalemia: K 3.2 received 40meq KCL in ED po monitor bmp (4) COPD (chronic obstructive pulmonary disease): continue Advair, Spirivia Scheduled Albuterol encourage incentive spirometry maintain O2 (5) Squamous cell carcinoma lung: [place] [facility] No known recurrence (6) Seizure disorder: continue keppra (7) Hyperlipidemia: continue statin therapy AST/ALT WNL monitor closely on remdesivir (8) Benign essential tremor: continue propranolol bid (9) Depression: with anxiety and insomnia continue effexor for depression and mirtazapine at HS for insomnia on buspar and lorazepam prn for anxiety mood stable (10) DVT prophylaxis: SQ Lovenox, pending D dimer Disposition: admit to PCU Follow up: PCP Dr. Richter upon discharge Pt was discussed in collaboration with Dr. Pennington, please see addendum History of Present Illness Chief Complaint: Worsening SOB x 1 week; COVID-19 dx 2 days ago. 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 She follows with [facility] and was last seen in clinic 08/11/2020. At that time she had noticed sinus congestion, sore throat and worsening shortness of breath. A Covid test was ordered and she received notification yesterday of positive result. She does live alone. Today she was brought to ER secondary to worsening shortness of breath, sinus congestion with purulent drainage, & productive purulent cough. She denies documented fever, chills, sweats, lightheadedness, dizziness, syncope, chest pain, palpitations, hemoptysis, nausea, vomiting, abdominal pain. She denies loss of taste or smell. She did have 2 episodes of diarrhea today but denies melena or hematochezia. In regards to COPD she does take Advair twice a day, nebulizer twice a day as well as as needed albuterol. Over the last several days she has been requiring her albuterol daily. She does follow pulmonology in regards to her lingula lung CA. She continues to smoke and at her most recent visit it was for bronchoscopy was not recommended to determine if there is recurrence of cancer. In regards to her oxygen use she states she typically uses 2 L at night and with exertion. She has not been monitoring her oxygen but has been putting it on during the day when she feels more short of breath. The only medication she took this morning her Effexor and Keppra. In ED patient required 4.5 L of O2 to maintain oxygen saturation. She was significantly hypertensive and mildly tachycardic. Temp mildly elevated 37.6. BP now 170/66. Lab work notable for WBC 8.87k, H&H 12.1 and 37.9, platelet 198, ESR 32, CRP 7.32, K3.2, BUN 17, creatinine 0.88, ferritin 41.3, CK 52, pro-Giuseppe 0.06. Chest x-ray consistent with small patchy left basilar opacity which could represent atelectasis or pneumonia. Allergies Allergy/AdvReac Type Severity Reaction Status Date / Time pollen extracts Allergy Intermediate CONGESTION Verified 08/14/20 11:43 Home Medications Medication Instructions Recorded Confirmed Type Spiriva with HandiHaler 1 cap INHALATION HS 11/28/18 08/14/20 History fluticasone propion-salmeterol 1 inh INHALATION BID 11/28/18 08/14/20 History [Advair Diskus] pantoprazole [Protonix] 40 mg PO BID 11/28/18 08/14/20 History Linzess 145 mcg PO DAILYBB 01/11/19 08/14/20 History cetirizine [Zyrtec] 10 mg PO HS 01/11/19 08/14/20 History ascorbic acid (vitamin C) [Vitamin 1,000 mg PO QAM 01/31/19 08/14/20 History C] albuterol sulfate 2 puff INHALATION Q4H PRN 11/08/19 08/14/20 History calcium carbonate [Calcium 500] 500 mg PO QAM 11/08/19 08/14/20 History cyanocobalamin (vitamin B-12) 100 mcg PO QAM 11/08/19 08/14/20 History fluticasone propionate [Flonase 2 spray INTRANASAL HS 11/08/19 08/14/20 History Allergy Relief] polyethylene glycol 3350 [Miralax] 17 g PO DAILY PRN 11/08/19 08/14/20 History rosuvastatin [Crestor] 20 mg PO HS 11/08/19 08/14/20 History sennosides 17.2 mg PO DAILY PRN 11/08/19 08/14/20 History venlafaxine 150 mg PO QAM 11/08/19 08/14/20 History levetiracetam 750 mg PO BID 11/17/19 08/14/20 History docusate sodium 100 mg capsule 100 mg PO DAILY 03/30/20 08/14/20 History acetaminophen [Tylenol] 325 - 650 mg PO QID PRN 06/11/20 08/14/20 History ipratropium-albuterol 3 ml NEB Q6H PRN 06/11/20 08/14/20 History montelukast 10 mg tablet 10 mg PO HS #30 tab 07/17/20 08/14/20 Rx amoxicillin 875 mg-potassium 1 tab PO BID #20 tab 08/11/20 08/14/20 Rx clavulanate 125 mg tablet aspirin [Aspir-81] 81 mg PO DAILY 08/14/20 08/14/20 History azelastine 1 spray INTRANASAL BID 08/14/20 08/14/20 History gabapentin 100 mg PO TID 08/14/20 08/14/20 History lorazepam 0.25 mg PO BID PRN 08/14/20 08/14/20 History mirtazapine 30 mg PO HS 08/14/20 08/14/20 History propranolol 20 mg PO BID 08/14/20 08/14/20 History venlafaxine 37.5 mg PO DAILY 08/14/20 08/14/20 History Past Med/Surg History Medical History (Updated 08/14/20 @ 12:09 by Yuliya Wong PA-C) Anxiety Asthma Benign essential tremor Carpal tunnel syndrome of right wrist Chronic constipation COPD (chronic obstructive pulmonary disease) COPD (chronic obstructive pulmonary disease) case management patient Depression Distal radius fracture, right Encephalitis due to human herpes simplex virus (HSV) GERD (gastroesophageal reflux disease) controlled Hiatal hernia History of colon polyps Hyperlipidemia On home oxygen therapy 2L O2 via NC HS and prn strenuous activity Osteoarthritis 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 Scoliosis Seizure disorder Sinusitis Squamous cell carcinoma lung Currently under surveillance, pathology shows basaloid squamous cell Tremor Surgical History History of bilateral cataract extraction History of detached retina repair right eye History of dilatation and curettage History of left oophorectomy History of Mohs micrographic surgery for skin cancer History of open reduction and internal fixation (ORIF) procedure right hip History of repair of left rotator cuff History of repair of right rotator cuff History of thumb surgery left History of tonsillectomy and adenoidectomy History of wisdom tooth extraction Hx of colonoscopy Family History Mother , age 80 ` s Alzheimer disease Colon cancer Father , age 80` s Alzheimer disease Sister Breast cancer had chemotherapy and radiation therapy at age45 Sister No problems noted. Sister , age 77 Coronary heart disease Alzheimer disease Aunt Breast cancer Social History (Updated 08/14/20 @ 11:35 by Yuliya Wong PA-C) Smoking Status: Current some day smoker Age Started Using Tobacco: 17; packs per day: 1; Years Smoked: 50; Cigarettes Per Day: 2; Second Hand Exposure: No; Do You Dip or Chew Tobacco: No; Tobacco Cessation Education Requested by Patient: No Hx Alcohol Use: Yes Alcohol type: wine Alcohol type Comment: 1 glass of wine a day Hx Substance Use: No Preferred Language: Paraguayan Communication Ability: Effective Shiftman Required: No Beliefs That Will Affect Care: None marital status: Current Living Situation: Alone Current Living Situation Comment: [facility] current occupational status: retired 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 Pennington addendum for physical exam findings Results & Data Results & Data ([facility]) Vital Signs (Past 12 Hours) Vital Signs Temp Pulse Pulse Resp BP BP Pulse Ox 08/14/20 10:10 24 91 08/14/20 10:08 100 H 24 198/68 H 91 08/14/20 09:43 109 H 94 08/14/20 08:53 37.6 C H 107 H 26 H 196/86 H 98 Laboratory Results Short CBC 08/14/20 Range/Units 08:53 WBC 8.87 (4.8-10.8) K/uL Hgb 12.1 (12.0-16.0) g/dL Hct 37.9 (37-47) % Plt Count 198 (130-400) K/uL BMP 08/14/20 08/14/20 08:53 09:41 Sodium Cancelled 140 Potassium Cancelled 3.2 L Chloride Cancelled 103 Carbon Dioxide Cancelled 34 H BUN Cancelled 17 Creatinine Cancelled 0.88 Glucose Cancelled 87 Calcium Cancelled 8.5 Cardiac Enzymes 08/14/20 08/14/20 Range/Units 08:53 09:41 Total Creatine Kinase Cancelled 52 CK-MB (CK-2) Cancelled 2.2 Troponin I Cancelled < 0.015 Liver Function 08/14/20 08/14/20 Range/Units 08:53 09:41 Total Bilirubin Cancelled 0.3 AST Cancelled 22 ALT Cancelled 28 Alkaline Phosphatase Cancelled 73 Albumin Cancelled 3.1 L Diagnostic Findings CXR: IMPRESSION: 1. Small patchy left basilar airspace opacities. This could represent ate lectasis or pneumonia. 2. Emphysema. Medications Administered Levalbuterol HCl (Levalbuterol Tartrate 15 Gm Hfa.Aer.Ad) 2 puffs INH QID MARIMAR Stop: 09/13/20 12:59 Last Admin: 08/14/20 09:55 Dose: 2 puffs Documented by: [id number] Discontinued Medications Azithromycin (Azithromycin 250 Mg Tab) 500 mg PO NOW ONE Stop: 08/14/20 09:07 Last Admin: 08/14/20 09:54 Dose: 500 mg Documented by: [id number] Dexamethasone (Dexamethasone Sod Inj 10 Mg/Ml Vial) 6 mg IV NOW ONE Stop: 08/14/20 09:07 Last Admin: 08/14/20 09:54 Dose: 6 mg Documented by: [id number] Magnesium Sulfate/Dextrose (Magnesium Sulfate / D5w) 1 gm in 100 mls @ 100 mls/hr IV NOW STA Stop: 08/14/20 10:07 Last Admin: 08/14/20 09:54 Dose: 100 mls/hr Documented by: [id number] Acetaminophen (Ofirmev) 1,000 mg in 100 mls @ 400 mls/hr IV NOW STA Stop: 08/14/20 09:23 Last Admin: 08/14/20 09:54 Dose: 400 mls/hr Documented by: [id number] Potassium Chloride (Potassium Chloride Crtab 20 Meq Tabcr) 40 meq PO NOW STA Stop: 08/14/20 10:18 Last Admin: 08/14/20 11:23 Dose: 40 meq Documented by: [id number] ECG Rate (beats per minute): 103 Rhythm: sinus tachycardia Code Status & VTE Plan Code Status DNR/DNI VTE Prophylaxis Plan VTE Prophylaxis will be ordered: Yes Supervising Physician Co-Signing Physician Notes HISTORY: Record reviewed. Patient interviewed and examined. Care coordinated with Yuliya Wong PA-C. Please refer to her documentation for complete history. Briefly, 74 YO F with history of lung Ca, COPD, and other problems. Uses supplemental O2 HS and with activity. Pt reports that O2 sats on RA are usually in the 90's. Developed cough and SOB a few days ago. Seen in Pulmonary Clinic on 08/11. Prescribed amoxicillin / clavulanic acid and prednisone. SARS-CoV-2 PCR collected and sent to [place] [facility]- reported positive 08/13. Worsening cough, SOB, and hypoxia with O2 sats as low as 82% at rest on RA. Came to ED for further evaluation. EXAM: VS- as noted Constitutional- elderly female, coughing Eyes- PERRL, anicteric sclerae, conjunctivae normal ENMT- external ear and nose normal; oropharynx clear Neck- trachea midline; no thyromegaly Respiratory- scattered rales, mild wheezing Cardiovascular- RRR, no murmur/gallop/rub appreciated; no JVD; no pretibial edema; normal capillary refill Abdomen- normal bowel sounds, soft, nontender, nondistended; no palpable masses or hepatosplenomegaly Musculoskeletal- no cyanosis Skin- warm & dry; normal color; no rashes Neurologic- no facial palsy; no dysarthria or aphasia; motor strength extremities grossly intact; patellar DTR's 1/2 bilaterally; resting tremor of hands Psychiatric- alert, oriented x 3; normal affect Lymphatic- no cervical adenopathy DATA: 08/14/20 09:41 Lymphocytes = 770. ESR = 32. CRP = 7.32. Procalcitonin = 0.06. Ferritin = 41. D-dimer = 310. Chest x-ray reviewed and demonstrated patchy densities at left base, mild diffuse interstitial thickening, emphysematous changes. EKG performed at [address] at 103 / minute, no acute changes. ASSESSMENT AND PLAN: COVID-19 / HYPOXIA Worsening cough, SOB, hypoxia. Chest x-ray shows increased interstitial markings and density at left base. Probable COVID-19 pneumonia. Pros and cons of different therapeutic options discussed with patient. Dexamethasone and remdesivir per protocol. FDA EUA for convalescent plasma provided to patient and she would like to receive it. Consent signed in ED. Procalcitonin normal. Azithromycin for exacerbation of COPD. Patient is a resident in assisted or independent living at [place] at [facility]. [facility] at [place] contacted by the undersigned. They are aware of + COVID testing and are working on contact tracing. HYPOKALEMIA Replace. Follow VTE PROPHYLAXIS SQ enoxaparin. Ambulate. Please refer to CHELI Wong's documentation for discussion of other issues. (1) Squamous cell carcinoma lung Laterality: left Qualified Code(s): C34.92 - Malignant neoplasm of unspecified part of left bronchus or lung
[2020-08-14 12:03] LABS: D Dimer 310 ug/L FEU (0-500)
[2020-08-14] MEDS ORDERED: LEVALBUTEROL TARTRATE 15 GM HFA.AER.AD INH SCH (13:00)
[2020-08-14 14:40] LABS: Appearance Urine Clear (Clear); Bacteria Urine Automated Negative (Negative); Bilirubin Urine Negative (Negative); Blood Urine Negative (Negative); Color Urine Yellow; Glucose Urine UA Negative (Negative); Ketones Urine Trace (Negative); Leukocyte Esterase Urine Negative (Negative); Nitrite Urine Negative (Negative); Protein Urine 1+ (Negative); RBC Urine Automated 0-4 /hpf (0-4); Specific Gravity Urine 1.021 (1.000-1.030); Urobilinogen Urine Negative (Negative)
[2020-08-14] MEDS ORDERED: ONDANSETRON INJ 2 MG/ML 2 ML VIAL IV PRN (15:11)
[2020-08-14] MEDS ORDERED: POLYETHYLENE (MIRALAX) 17 GM PACK PO PRN (15:11)
[2020-08-14] MEDS ORDERED: ALBUT/IPRATROP 3MG/0.5MG NEB 3 ML VIAL NEB PRN (15:11)
[2020-08-14] MEDS ORDERED: ALUMINUM/MAGNESIUM SUSP 30 ML UDC PO PRN (15:11)
[2020-08-14] MEDS ORDERED: MAGNESIUM HYDROXIDE SUSP 30 ML UDC PO PRN (15:11)
[2020-08-14] MEDS ORDERED: REMDESIVIR 200 MG in SODIUM CHLORIDE 0.9% 210 ML IV ONE (16:00)
[2020-08-14] MEDS: ACETAMINOPHEN 325 MG TAB PO PRN (16:05)
[2020-08-14] MEDS: ENOXAPARIN INJ 30 MG/0.3 ML SYR SQ SCH (16:51)
[2020-08-14] MEDS: GABAPENTIN 100 MG CAP PO SCH ×2 (16:51→20:16)
--- NOTE | 2020-08-14 17:17 | Pulmonary Consultation ---
Date of Consultation August 14, 2020 Assessment & Plan (1) Pneumonia due to COVID-19 virus: (2) COVID-19: (3) Acute and chronic respiratory failure with hypoxia: (4) COPD (chronic obstructive pulmonary disease) case management patient: Impression: 74-year-old female with obstructive lung disease and ongoing tobacco exposure as well as history of lung cancer with recurrent endobronchial disease admitted with COVID-19 pneumonia. Her oxygen requirement is slightly increased over her baseline. Recommendations: 1. COVID-19 pneumonia: Agree with remdesivir and dexamethasone. 2. Hypoxemic respiratory failure: Continue supplemental oxygen titrated to keep saturations at or above 88%. 3. COPD: Continue outpatient inhaler regiment. Would place on azithromycin for acute exacerbation of COPD. We will reassess in 24 hours to ensure she is responding appropriately. Please call if we can be of additional assistance History of Present Illness Attending Physician: John Pennington MD History of Present Illness Asked by hospitalist to assist in evaluation of this pulmonary outpatient admitted with progressive hypoxemic respiratory failure and COVID-19 pneumonia. Chart was reviewed. I discussed with the patient yesterday on the phone when I was notified of her positive Covid test. Patient is followed by Dr. Carrasco in the outpatient setting. She carries a history of lung cancer with endobronchial recurrence and is undergone several procedures in the past. She has oxygen at home that she uses on an as-needed basis as well as at night. She was seen in clinic by Dr. Carrasco on the with some respiratory difficulties and was prescribed antibiotics and steroids. A Covid test was also ordered which unfortunately was resulted yesterday as po sitive. I contacted the patient at that point time to advise her of her diagnosis. We discussed her case. She was not having any respiratory difficulties at that point time. I recommended quarantine for 14 days and discontinue the steroids as she was not hypoxemic at that time. We advised her to present to the emergency room with increasing respiratory difficulties. The patient had issues with progressive respiratory complaints. She had been monitoring her oxygen during the day and apparently was needing it more frequently. She was evaluated in the emergency room and required to need 4 to 5 L continuously to maintain oxygen saturations. She was mildly tachycardic. She was admitted to the hospitalist service and placed on remdesivir as well as dexamethasone. Allergies Allergy/AdvReac Type Severity Reaction Status Date / Time pollen extracts Allergy Intermediate CONGESTION Verified 08/14/20 11:43 Home Medications Medication Instructions Recorded Confirmed Type Spiriva with HandiHaler 1 cap INHALATION HS 11/28/18 08/14/20 History fluticasone propion-salmeterol 1 inh INHALATION BID 11/28/18 08/14/20 History [Advair Diskus] pantoprazole [Protonix] 40 mg PO BID 11/28/18 08/14/20 History Linzess 145 mcg PO DAILYBB 01/11/19 08/14/20 History cetirizine [Zyrtec] 10 mg PO HS 01/11/19 08/14/20 History ascorbic acid (vitamin C) [Vitamin 1,000 mg PO QAM 01/31/19 08/14/20 History C] albuterol sulfate 2 puff INHALATION Q4H PRN 11/08/19 08/14/20 History calcium carbonate [Calcium 500] 500 mg PO QAM 11/08/19 08/14/20 History cyanocobalamin (vitamin B-12) 100 mcg PO QAM 11/08/19 08/14/20 History fluticasone propionate [Flonase 2 spray INTRANASAL HS 11/08/19 08/14/20 History Allergy Relief] polyethylene glycol 3350 [Miralax] 17 g PO DAILY PRN 11/08/19 08/14/20 History rosuvastatin [Crestor] 20 mg PO HS 11/08/19 08/14/20 History sennosides 17.2 mg PO DAILY PRN 11/08/19 08/14/20 History venlafaxine 150 mg PO QAM 11/08/19 08/14/20 History levetiracetam 750 mg PO BID 11/17/19 08/14/20 History docusate sodium 100 mg capsule 100 mg PO DAILY 03/30/20 08/14/20 History acetaminophen [Tylenol] 325 - 650 mg PO QID PRN 06/11/20 08/14/20 History ipratropium-albuterol 3 ml NEB Q6H PRN 06/11/20 08/14/20 History montelukast 10 mg tablet 10 mg PO HS #30 tab 07/17/20 08/14/20 Rx amoxicillin 875 mg-potassium 1 tab PO BID #20 tab 08/11/20 08/14/20 Rx clavulanate 125 mg tablet aspirin [Aspir-81] 81 mg PO DAILY 08/14/20 08/14/20 History azelastine 1 spray INTRANASAL BID 08/14/20 08/14/20 History gabapentin 100 mg PO TID 08/14/20 08/14/20 History lorazepam 0.25 mg PO BID PRN 08/14/20 08/14/20 History mirtazapine 30 mg PO HS 08/14/20 08/14/20 History propranolol 20 mg PO BID 08/14/20 08/14/20 History venlafaxine 37.5 mg PO DAILY 08/14/20 08/14/20 History Patient History Medical History (Updated 08/14/20 @ 12:09 by Yuliya Wong PA-C) Anxiety Asthma Benign essential tremor Carpal tunnel syndrome of right wrist Chronic constipation COPD (chronic obstructive pulmonary disease) COPD (chronic obstructive pulmonary disease) case management patient Depression Distal radius fracture, right Encephalitis due to human herpes simplex virus (HSV) GERD (gastroesophageal reflux disease) controlled Hiatal hernia History of colon polyps Hyperlipidemia On home oxygen therapy 2L O2 via NC HS and prn strenuous activity Osteoarthritis 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 Scoliosis Seizure disorder Sinusitis Squamous cell carcinoma lung Currently under surveillance, pathology shows basaloid squamous cell Tremor Surgical History History of bilateral cataract extraction History of detached retina repair right eye History of dilatation and curettage History of left oophorectomy History of Mohs micrographic surgery for skin cancer History of open reduction and internal fixation (ORIF) procedure right hip History of repair of left rotator cuff History of repair of right rotator cuff History of thumb surgery left History of tonsillectomy and adenoidectomy History of wisdom tooth extraction Hx of colonoscopy Family History Mother , age 80 ` s Alzheimer disease Colon cancer Father , age 80` s Alzheimer disease Sister Breast cancer had chemotherapy and radiation therapy at age45 Sister No problems noted. Sister , age 77 Coronary heart disease Alzheimer disease Aunt Breast cancer Social History (Updated 11/27/20 @ 11:35 by Yuliya Wong PA-C) Smoking Status: Current some day smoker Age Started Using Tobacco: 17; packs per day: 1; Years Smoked: 50; Cigarettes Per Day: 2; Second Hand Exposure: No; Do You Dip or Chew Tobacco: No; Tobacco Cessation Education Requested by Patient: No Hx Alcohol Use: Yes Alcohol type: wine Alcohol type Comment: 1 glass of wine a day Hx Substance Use: No Preferred Language: Vincentian Communication Ability: Effective Offset Machine Operator Required: No Beliefs That Will Affect Care: None marital status: Current Living Situation: Alone Current Living Situation Comment: [facility] current occupational status: retired 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 Please refer to the admitting providers exam Results & Data Results & Data ([facility]) Vital Signs (Past 12 Hours) Vital Signs Temp Pulse Pulse Pulse Resp BP BP 08/14/20 17:04 36.9 C 93 H 130/74 08/14/20 16:44 36.5 C 93 H 18 142/73 H 08/14/20 14:57 37.1 C 94 H 153/77 H 08/14/20 14:35 93 H 22 145/77 H 08/14/20 12:30 95 H 24 135/71 08/14/20 11:30 103 H 24 170/66 H 08/14/20 10:33 109 H 24 149/75 H 08/14/20 10:10 24 08/14/20 10:08 100 H 24 198/68 H 08/14/20 09:43 109 H 08/14/20 08:53 37.6 C H 107 H 26 H 196/86 H Pulse Ox 08/14/20 17:04 95 08/14/20 16:44 91 08/14/20 14:57 95 08/14/20 14:35 94 08/14/20 12:30 95 08/14/20 11:30 97 08/14/20 10:33 95 08/14/20 10:10 91 08/14/20 10:08 91 08/14/20 09:43 94 08/14/20 08:53 98 Laboratory Results 08/14/20 08:53 08/14/20 09:41 Diagnostic Findings Chest x-ray was independently reviewed. There appears to be a slight hazy opacity at the left lung base. Otherwise lungs are consistent with obstructive lung disease and unchanged from prior. PG Care Time/CCT Total # of Minutes Spent Total Time Spent with Patient: Total time spent is greater than 50% in coordination of care (as documented) at patient's floor/unit and/or counseling patient: Coding Level of Care Code 73715 Initial Inpt Care Lvl 3 Diagnoses Pneumonia due to COVID-19 virus U07.1; J12.89 COVID-19 U07.1 Acute and chronic respiratory failure with hypoxia J96.21 COPD (chronic obstructive pulmonary disease) case management patient J44.9
[2020-08-14] MEDS: LINZESS - ORDER AWAITING ACTION SCH (17:51)
[2020-08-14] MEDS: ALBUTEROL HFA 8 GM INHALER INH SCH ×2 (19:34→19:35)
[2020-08-14] MEDS: ROSUVASTATIN CALCIUM 20 MG TAB PO SCH (20:13)
[2020-08-14] MEDS: MONTELUKAST SODIUM 10 MG TABLET PO SCH (20:13)
[2020-08-14] MEDS: CETIRIZINE HCL 10 MG TABLET PO SCH (20:13)
[2020-08-14] MEDS: FLUTICASONE/VILANTEROL 200/25MCG 14 PUFFS/INHALER INH SCH (20:14)
[2020-08-14] MEDS: PROPRANOLOL HCL 20 MG TAB PO SCH (20:14)
[2020-08-14] MEDS: UMECLIDINIUM BROMIDE 62.5MCG/BLISTER 7 PUFFS/INHALER INH SCH (20:14)
[2020-08-14] MEDS: MIRTAZAPINE TAB 15 MG TAB PO SCH (20:14)
[2020-08-14] MEDS: levETIRAcetam 250 MG TAB PO SCH (20:15)
[2020-08-14] MEDS: FLUTICASONE PROPIONATE NA SPR 16 GM BTL NAE SCH (20:15)
[2020-08-14] MEDS: PANTOprazole 40 MG TAB PO SCH (20:16)
[2020-08-14] MEDS: SODIUM CHLORIDE 0.9% 10ML FLUSH IV SCH (22:37)
--- NOTE | 2020-08-14 23:10 | Electrocardiogram Report ---
Test Reason : Blood Pressure : / mmHG Vent. Rate : 103 BPM Atrial Rate : 103 BPM P-R Int : 164 ms QRS Dur : 086 ms QT Int : 334 ms P-R-T Axes : 075 060 069 degrees QTc Int : 437 ms Poor data quality, interpretation may be adversely affected Sinus tachycardia Otherwise normal ECG When compared with ECG of 11-JUN-2020 19:36, No significant change was found Confirmed by Lj Mirza ([id number]) on 08/14/2020 11:09:41 PM Referred By: SELF Confirmed By:Lj Mirza
[2020-08-14] MEDS ORDERED: LORazepam 0.5 MG/1 ML VIAL IV STA (23:53)
[2020-08-15] MEDS: LINZESS - ORDER AWAITING ACTION SCH ×4 (01:32→23:43)
[2020-08-15] MEDS: ACETAMINOPHEN 325 MG TAB PO PRN (03:15)
[2020-08-15] MEDS ORDERED: METOPROLOL TARTRATE 1 MG/ML VIAL IV STA (03:26)
[2020-08-15] MEDS: ALBUTEROL HFA 8 GM INHALER INH SCH ×4 (07:51→19:27)
[2020-08-15 08:53] LABS: Hematocrit (blood only) 39.6 % (37-47); Hemoglobin 12.6 g/dL (12.0-16.0); Immature Granulocytes # (auto) 0.01 K/uL (0.00-0.02); Immature Granulocytes % (auto) 0.2 %; Lymphocytes # (auto) 0.29 K/uL (1.2-3.4); Lymphocytes % (auto) 5.3 %; Mean Corpuscular Hemoglobin 31.1 pg (25-34); Mean Corpuscular Hgb Conc 31.8 g/dL (32-36); Mean Corpuscular Volume 97.8 fL (80-100); Mean Platelet Volume 8.9 fL (7.4-10.4); Monocytes # (auto) 0.23 K/uL (0.11-0.59); Monocytes % (auto) 4.2 %; Neutrophils # (auto) 4.92 K/uL (1.4-6.5); Neutrophils % (auto) 90.3 %; Platelet Count 179 K/uL (130-400); RDW Coefficient of Variation 13.5 % (11.5-14.5); RDW Standard Deviation 48.5 fL (36.4-46.3); Red Blood Count 4.05 M/uL (4.2-5.4); White Blood Count 5.45 K/uL (4.8-10.8)
[2020-08-15] MEDS ORDERED: AZITHROMYCIN 250 MG TAB PO SCH (09:00)
[2020-08-15] MEDS: LORazepam 0.5 MG TAB PO PRN (09:10)
[2020-08-15] MEDS: dexAMETHasone 6 MG in SYRINGE 0 ML IV SCH (09:11)
[2020-08-15] MEDS: ASPIRIN 81 MG ECTAB PO SCH (09:11)
[2020-08-15] MEDS: PROPRANOLOL HCL 20 MG TAB PO SCH ×2 (09:12→21:15)
[2020-08-15] MEDS: CYANOCOBALAMIN (VITAMIN B-12) 100 MCG TABLET PO SCH (09:12)
[2020-08-15] MEDS: ASCORBIC ACID 500 MG TAB PO SCH (09:12)
[2020-08-15] MEDS: VENLAFAXINE HCL XR 37.5 MG CAPXR PO SCH (09:12)
[2020-08-15] MEDS: GABAPENTIN 100 MG CAP PO SCH ×3 (09:12→23:43)
[2020-08-15] MEDS: CALCIUM CARBONATE 1250MG TAB PO SCH (09:12)
[2020-08-15] MEDS: levETIRAcetam 250 MG TAB PO SCH ×2 (09:12→21:15)
[2020-08-15 09:30] LABS: Albumin Globulin Ratio 0.8 (0.9-2); BUN Creatinine Ratio 19.5 (10-20); Bilirubin,Total 0.4 mg/dl (0.2-1); Calcium 8.6 mg/dl (8.5-10.1); Creatinine Clr Calc Pharmacy 42.8 ml/min; Est GFR (African American) 71.1; Est GFR (Non-African American) 61.3; Globulin 3.9 gm/dl (2.5-4.0); Total Protein 6.9 gm/dl (6.4-8.2)
--- NOTE | 2020-08-15 09:49 | Emergency Department Note ---
History of Present Illness General Chief complaint: Shortness of Breath/Dyspnea Stated complaint: SOB, COVID + Time Seen by Provider: 08/14/20 08:49 Source: patient, RN notes reviewed and old records reviewed Mode of arrival: ambulatory Limitations: no limitations History of Present Illness Provider complaint: COVID +, shortness of breath Onset (ago): month(s) 1 Location: chest Severity: moderate Maximum Pain Intensity: 8 Relieved By: + immobilization and + rest Exacerbated By: + movement Associated symptoms: + cough, + fever/chills, + malaise, + nausea/vomiting and + shortness of breath; no chest pain Treatments prior to arrival: none This 74-year-old female has a history of COPD as well as asthma who presents the emergency department complaining of shortness of breath. The patient needs multiple inhalers at home. She reports that she has been short of breath for approximately the last month. She had a Covid test done at her primary care physician's office 2 days ago. Her results came back today as positive for Covid. She reports shortness of breath that is made worse with movement however immobilization makes the breathing better. She has been using heroin and inhalers without relief. Home Medications Medication Instructions Recorded Confirmed Type Spiriva with HandiHaler 1 cap INHALATION HS 11/28/18 08/14/20 History fluticasone propion-salmeterol 1 inh INHALATION BID 11/28/18 08/14/20 History [Advair Diskus] pantoprazole [Protonix] 40 mg PO BID 11/28/18 08/14/20 History Linzess 145 mcg PO DAILYBB 01/11/19 08/14/20 History cetirizine [Zyrtec] 10 mg PO HS 01/11/19 08/14/20 History ascorbic acid (vitamin C) [Vitamin 1,000 mg PO QAM 01/31/19 08/14/20 History C] albuterol sulfate 2 puff INHALATION Q4H PRN 11/08/19 08/14/20 History calcium carbonate [Calcium 500] 500 mg PO QAM 11/08/19 08/14/20 History cyanocobalamin (vitamin B-12) 100 mcg PO QAM 11/08/19 08/14/20 History fluticasone propionate [Flonase 2 spray INTRANASAL HS 11/08/19 08/14/20 History Allergy Relief] polyethylene glycol 3350 [Miralax] 17 g PO DAILY PRN 11/08/19 08/14/20 History rosuvastatin [Crestor] 20 mg PO HS 11/08/19 08/14/20 History sennosides 17.2 mg PO DAILY PRN 11/08/19 08/14/20 History venlafaxine 150 mg PO QAM 11/08/19 08/14/20 History levetiracetam 750 mg PO BID 11/17/19 08/14/20 History docusate sodium 100 mg capsule 100 mg PO DAILY 03/30/20 08/14/20 History acetaminophen [Tylenol] 325 - 650 mg PO QID PRN 06/11/20 08/14/20 History ipratropium-albuterol 3 ml NEB Q6H PRN 06/11/20 08/14/20 History montelukast 10 mg tablet 10 mg PO HS #30 tab 07/17/20 08/14/20 Rx amoxicillin 875 mg-potassium 1 tab PO BID #20 tab 08/11/20 08/14/20 Rx clavulanate 125 mg tablet aspirin [Aspir-81] 81 mg PO DAILY 08/14/20 08/14/20 History azelastine 1 spray INTRANASAL BID 08/14/20 08/14/20 History gabapentin 100 mg PO TID 08/14/20 08/14/20 History lorazepam 0.25 mg PO BID PRN 08/14/20 08/14/20 History mirtazapine 30 mg PO HS 08/14/20 08/14/20 History propranolol 20 mg PO BID 08/14/20 08/14/20 History venlafaxine 37.5 mg PO DAILY 08/14/20 08/14/20 History Allergies Allergy/AdvReac Type Severity Reaction Status Date / Time pollen extracts Allergy Intermediate CONGESTION Verified 08/14/20 11:43 Past Med/Surg History Medical History (Updated 08/15/20 @ 13:57 by Alonzo Zamudio MD) Anxiety Asthma Benign essential tremor Carpal tunnel syndrome of right wrist Chronic constipation COPD (chronic obstructive pulmonary disease) COPD (chronic obstructive pulmonary disease) case management patient Depression Distal radius fracture, right Encephalitis due to human herpes simplex virus (HSV) GERD (gastroesophageal reflux disease) controlled Hiatal hernia History of colon polyps Hyperlipidemia On home oxygen therapy 2L O2 via NC HS and prn strenuous activity Osteoarthritis 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 Scoliosis Seizure disorder Sinusitis Squamous cell carcinoma lung Currently under surveillance, pathology shows basaloid squamous cell Tremor Surgical History History of bilateral cataract extraction History of detached retina repair right eye History of dilatation and curettage History of left oophorectomy History of Mohs micrographic surgery for skin cancer History of open reduction and internal fixation (ORIF) procedure right hip History of repair of left rotator cuff History of repair of right rotator cuff History of thumb surgery left History of tonsillectomy and adenoidectomy History of wisdom tooth extraction Hx of colonoscopy Family History Mother , age 80 ` s Alzheimer disease Colon cancer Father , age 80` s Alzheimer disease Sister Breast cancer had chemotherapy and radiation therapy at age45 Sister No problems noted. Sister , age 77 Coronary heart disease Alzheimer disease Aunt Breast cancer Social History (Updated 08/14/20 @ 11:35 by Yuliya Wong PA-C) Smoking Status: Current some day smoker Age Started Using Tobacco: 17; packs per day: 1; Years Smoked: 50; Cigarettes Per Day: 2; Second Hand Exposure: No; Do You Dip or Chew Tobacco: No; Tobacco Cessation Education Requested by Patient: No Hx Alcohol Use: Yes Alcohol type: wine Alcohol type Comment: 1 glass of wine a day Hx Substance Use: No Preferred Language: Nicaraguan Communication Ability: Effective Deputy Director Required: No Beliefs That Will Affect Care: None marital status: Current Living Situation: Alone Current Living Situation Comment: [facility] current occupational status: retired 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 Other Information That Helps Us Care for You: No Feels Safe at Home: Yes Safety Concerns: Feels Safe At This Time Assistive Devices: Oxygen - Continuous Review of Systems A total of 10 systems reviewed and were otherwise negative Physical Exam Vital Signs Vital Signs - 24 hr 08/14/20 10:08 08/14/20 10:10 08/14/20 10:33 Pulse Rate [Apical] 100 H 109 H Pulse Rhythm [Apical] Regular Regular Pulse Strength [Apical] Normal Normal Respiratory Rate 24 24 24 Respiratory Effort / Characteristics Spontaneous Accessory Muscle Use Short of Breath Spontaneous Accessory Muscle Use Short of Breath Non-Labored Spontaneous Respiratory Depth Normal Normal Respiratory Pattern Regular Regular Blood Pressure [Right Arm] 198/68 H 149/75 H Blood Pressure Mean [Right Arm] 111 99 Blood Pressure Position [Right Arm] Sitting Sitting Pulse Oximetry 91 91 95 Oxygen Delivery Method Nasal Cannula Nasal Cannula Nasal Cannula Oxygen Flow Rate 4.5 4.5 4 VITAL SIGNS - Vital signs and nursing notes were reviewed. GENERAL - 74-year-old female appearing stated age who is in no acute distress. Communicates well with provider and answers questions appropriately. SKIN - Without rashes. HEAD - NC/AT. EYES - PERRL with EOMI bilaterally. Sclera anicteric. Palpebral conjunctiva pink and moist with no injection noted. EARS - No deformities of external structures noted on gross examination bilaterally. No pain elicited with palpation of the tragus bilaterally. External auditory canals without discharge or otorrhea. Tympanic membranes pearly mcmanus without retraction or bulging. No fluid or purulent material visualized behind the TM. Handle of malleus, umbo, cone of light, pars tensa/flaccid all easily visualized. NOSE - Midline and without cyanosis. No epistaxis or purulent drainage noted. Septum midline without deviation or septal hematoma noted. MOUTH/OROPHARYNX - Without perioral cyanosis. Buccal mucosa pink and moist and without leukoplakia. Tongue midline with equal elevation of palate bilaterally. No tonsillar hypertrophy, erythema, or exudates noted. dentition noted. NECK - Neck with FROM. Supple to palpation. lymphadenopathy noted. No nuchal rigidity. LUNGS - wheezes throughout all lung heredia CARDIAC - RRR with S1/S2. No murmur, rubs, or gallops appreciated. ABDOMEN - Abdominal contour without pulsations or visible masses. BS no rmoactive all four quadrants. No tenderness, palpable masses, hepatosplenomegaly, or ascites noted. EXTREMITIES - No clubbing or peripheral cyanosis. No pretibial edema present. +3/5 radial, posterior tibial, and dorsalis pedis pulses palpated throughout. +5/5 strength noted in UE/LE bilaterally. NEUROLOGIC - Cranial nerves II through XII grossly intact. Sensory intact to light touch throughout. Patellar reflexes +2/4. PSYCH - A&Ox3 and cooperates fully with examiner. Pt is very pleasant and interacts well with examiner. Course Administered Medications Acetaminophen (Acetaminophen 325 Mg Tab) 650 mg PO Q4H PRN PRN Reason: Pain or Fever Stop: 09/13/20 15:10 Last Admin: 08/15/20 03:15 Dose: 650 mg Documented by: [id number] Admin: 08/14/20 16:05 Dose: 650 mg Documented by: [id number] Albuterol (Albuterol Hfa 8 Gm Inhaler) 2 puffs INH QIDR [facility] Stop: 09/14/20 06:59 Last Admin: 08/15/20 11:00 Dose: 2 puffs Documented by: [id number] Admin: 08/15/20 07:51 Dose: 2 puffs Documented by: [id number] Ascorbic Acid (Ascorbic Acid 500 Mg Tab) 1,000 mg PO [facility] Stop: 09/14/20 08:59 Last Admin: 08/15/20 09:12 Dose: 1,000 mg Documented by: [id number] Aspirin (Aspirin 81 Mg Ectab) 81 mg PO DAILY [facility] Stop: 09/14/20 08:59 Last Admin: 08/15/20 09:11 Dose: 81 mg Documented by: [id number] Calcium Carbonate (Calcium Carbonate 1250mg Tab) 1,250 mg PO [facility] Stop: 09/14/20 08:59 Last Admin: 08/15/20 09:12 Dose: 1,250 mg Documented by: [id number] Cetirizine HCl (Cetirizine Hcl 10 Mg Tablet) 10 mg PO [facility] Stop: 09/13/20 20:59 Last Admin: 08/14/20 20:13 Dose: 10 mg Documented by: [id number] Cyanocobalamin (Cyanocobalamin (Vitamin B-12) 100 Mcg Tablet) [facility] Stop: 09/14/20 08:59 Last Admin: 08/15/20 09:12 Dose: 100 mcg Documented by: [id number] Enoxaparin Sodium (Enoxaparin Inj 30 Mg/0.3 Ml Syr) 30 mg SQ Q24H [facility] Stop: 09/13/20 15:59 Last Admin: 08/14/20 16:51 Dose: 30 mg Documented by: [id number] Fluticasone Propionate (Fluticasone Propionate Na Spr 16 Gm Btl) 2 sprays [facility] Stop: 09/13/20 20:59 Last Admin: 08/14/20 20:15 Dose: 2 sprays Documented by: [id number] Fluticasone/Vilanterol (Fluticasone/Vilanterol 200/25mcg 14 Puffs/Inhaler) 1 puffs INH DAILY [facility] Stop: 09/14/20 08:59 Last Admin: 08/14/20 20:14 Dose: 1 puffs Documented by: [id number] Folic Acid (Folic Acid 1 Mg Tab) 1 mg PO QAM [facility] Stop: 09/14/20 11:59 Last Admin: 08/15/20 12:46 Dose: 1 mg Documented by: [id number] Gabapentin (Gabapentin 100 Mg Cap) 100 mg PO TID [facility] Stop: 09/13/20 15:10 Last Admin: 08/15/20 09:12 Dose: 100 mg Documented by: [id number] Admin: 08/14/20 20:16 Dose: 100 mg Documented by: [id number] Admin: 08/14/20 16:51 Dose: 100 mg Documented by: [id number] Dexamethasone 6 mg/ Syringe 1.5 mls @ 1 mls/min IV Q24H [facility] Stop: 08/24/20 09:02 Last Admin: 08/15/20 09:11 Dose: 1 mls/min Documented by: [id number] Levetiracetam (Levetiracetam 250 Mg Tab) 750 mg PO BID [facility] Stop: 09/13/20 20:59 Last Admin: 08/15/20 09:12 Dose: 750 mg Documented by: [id number] Admin: 08/14/20 20:15 Dose: 750 mg Documented by: [id number] Lorazepam (Lorazepam 0.5 Mg Tab) 0.25 mg PO BID PRN PRN Reason: Anxiety Stop: 09/13/20 15:10 Last Admin: 08/15/20 09:10 Dose: 0.25 mg Documented by: [id number] Mirtazapine (Mirtazapine Tab 15 Mg Tab) 30 mg PO HS [facility] Stop: 09/13/20 20:59 Last Admin: 08/14/20 20:14 Dose: 30 mg Documented by: [id number] Miscellaneous (Astelin - Order Awaiting Action) 1 ea N/A QS [facility] Stop: 09/13/20 15:59 Last Admin: 08/15/20 09:11 Dose: Not Given Documented by: [id number] Admin: 11/28/20 01:32 Dose: Not Given Documented by: [id number] Admin: 08/14/20 17:51 Dose: Not Given Documented by: [id number] Miscellaneous (Linzess - Order Awaiting Action) 1 ea N/A QS [facility] Stop: 09/13/20 15:59 Last Admin: 08/15/20 09:11 Dose: Not Given Documented by: [id number] Admin: 08/15/20 01:32 Dose: Not Given Documented by: [id number] Admin: 08/14/20 17:51 Dose: Not Given Documented by: [id number] Montelukast Sodium (Montelukast Sodium 10 Mg Tablet) 10 mg PO [facility] Stop: 09/13/20 20:59 Last Admin: 08/14/20 20:13 Dose: 10 mg Documented by: [id number] Pantoprazole Sodium (Pantoprazole 40 Mg Tab) 40 mg PO BID [facility] Stop: 09/13/20 20:59 Last Admin: 08/15/20 10:02 Dose: 40 mg Documented by: [id number] Admin: 08/14/20 20:16 Dose: 40 mg Documented by: [id number] Propranolol HCl (Propranolol Hcl 20 Mg Tab) 20 mg PO BID [facility] Stop: 09/13/20 20:59 Last Admin: 08/15/20 09:12 Dose: 20 mg Documented by: [id number] Admin: 08/14/20 20:14 Dose: 20 mg Documented by: [id number] Rosuvastatin Calcium (Rosuvastatin Calcium 20 Mg Tab) 20 mg PO HS [facility] Stop: 09/13/20 20:59 Last Admin: 08/14/20 20:13 Dose: 20 mg Documented by: [id number] Sodium Chloride (Sodium Chloride 0.9% 10ml Flush) 30 ml IV Q24H [facility] Stop: 08/18/20 16:01 Last Admin: 08/14/20 22:37 Dose: 30 ml Documented by: [id number] Thiamine HCl (Thiamine Hcl 100 Mg Tab) 100 mg PO QAM [facility] Stop: 09/14/20 11:59 Last Admin: 08/15/20 12:46 Dose: 100 mg Documented by: [id number] Umeclidinium [place] (Umeclidinium [place] 62.5mcg/Blister 7 Puffs/Inhaler) 1 puffs INH [facility] Stop: 09/13/20 20:59 Last Admin: 08/14/20 20:14 Dose: 1 puffs Documented by: [id number] Venlafaxine HCl (Venlafaxine Hcl Xr 37.5 Mg Capxr) 37.5 mg PO DAILY [facility] Stop: 09/14/20 08:59 Last Admin: 08/15/20 09:12 Dose: 37.5 mg Documented by: [id number] Venlafaxine HCl (Venlafaxine Hcl Xr 150 Mg Capxr) 150 mg PO QAM [facility] Stop: 09/14/20 08:59 Last Admin: 08/15/20 10:02 Dose: 150 mg Documented by: [id number] Discontinued Medications Albuterol (Albuterol Hfa 8 Gm Inhaler) 2 puffs INH QID [facility] Stop: 09/13/20 15:10 Last Admin: 08/14/20 19:35 Dose: Not Given Documented by: [id number] Admin: 08/14/20 19:35 Dose: Not Given Documented by: [id number] Admin: 08/14/20 19:34 Dose: 2 puffs Documented by: [id number] Azithromycin (Azithromycin 250 Mg Tab) 500 mg PO NOW ONE Stop: 08/14/20 09:07 Last Admin: 08/14/20 09:54 Dose: 500 mg Documented by: [id number] Azithromycin (Azithromycin 250 Mg Tab) 500 mg PO [facility] Stop: 08/22/20 08:59 Last Admin: 08/15/20 09:10 Dose: 500 mg Documented by: [id number] Dexamethasone (Dexamethasone Sod Inj 10 Mg/Ml Vial) 6 mg IV NOW ONE Stop: 08/14/20 09:07 Last Admin: 08/14/20 09:54 Dose: 6 mg Documented by: [id number] Gabapentin (Gabapentin 600 Mg Tab) 600 mg PO 1200 ONE Stop: 08/15/20 12:01 Last Admin: 08/15/20 12:46 Dose: 600 mg Documented by: [id number] Magnesium Sulfate/Dextrose (Magnesium Sulfate / D5w) 1 gm in 100 mls @ 100 mls/hr IV NOW STA Stop: 08/14/20 10:07 Last Infusion: 08/14/20 10:54 Dose: 0 mls/hr Documented by: [id number] Admin: 08/14/20 09:54 Dose: 100 mls/hr Documented by: [id number] Acetaminophen (Ofirmev) 1,000 mg in 100 mls @ 400 mls/hr IV NOW STA Stop: 08/14/20 09:23 Last Infusion: 08/14/20 10:09 Dose: 0 mls/hr Documented by: [id number] Admin: 08/14/20 09:54 Dose: 400 mls/hr Documented by: [id number] Remdesivir 200 mg/ Sodium (Chloride) 250 mls @ 125 mls/hr IV 1600 ONE; Protocol Stop: 08/14/20 17:59 Last Infusion: 08/14/20 22:38 Dose: 0 mls/hr Documented by: [id number] Admin: 08/14/20 20:12 Dose: 125 mls/hr Documented by: [id number] Lorazepam (Ativan) 0.5 mg in 1 mls @ 1 mls/min IV NOW STA Stop: 08/14/20 23:54 Last Admin: 08/15/20 00:02 Dose: 1 mls/min Documented by: [id number] Levalbuterol HCl (Levalbuterol Tartrate 15 Gm Hfa.Aer.Ad) 2 puffs INH QID [facility] Stop: 09/13/20 12:59 Last Admin: 08/14/20 09:55 Dose: 2 puffs Documented by: [id number] Metoprolol Tartrate (Metoprolol Tartrate 1 Mg/Ml Vial) 2.5 mg IV NOW STA Stop: 08/15/20 03:27 Last Admin: 08/15/20 03:40 Dose: 2.5 mg Documented by: [id number] Potassium Chloride (Potassium Chloride Crtab 20 Meq Tabcr) 40 meq PO NOW STA Stop: 08/14/20 10:18 Last Admin: 08/14/20 11:23 Dose: 40 meq Documented by: [id number] Critical Care Time I have personally spent greater than 30 minutes of critical care time in the direct management of this patient. This includes bedside care, interpretation of diagnostic studies, and testing, discussion with consultants, patient, and family members, and other required patient management activities. This 30 minutes is in excess of all separately billable procedures. Medical Decision Making Differential Diagnosis Reactive airway disease, pneumonia, pneumothorax, COPD, CHF, infections, cardiac ischemia, pulmonary embolism, musculoskeletal, gastrointestinal, as well as other pathologies. Medical Records Attestation: I reviewed the patient's medical records. Home Medications Current Medication List: was personally reviewed by me Laboratory Data Attestation: I reviewed the patient's lab results. Result diagrams: 08/15/20 08:41 08/15/20 08:41 Lab Results 08/14/20 08/14/20 08/14/20 Range/Units 08:53 08:53 08:53 WBC (4.8-10.8) K/uL RBC (4.2-5.4) M/uL Hgb (12.0-16.0) g/dL Hct (37-47) % MCV (80-100) fL MCH (25-34) pg MCHC (32-36) g/dL RDW Std Deviation (36.4-46.3) fL RDW Coeff of Yamini (11.5-14.5) % Plt Count (130-400) K/uL MPV (7.4-10.4) fL Immature Gran % (Auto) % Neut % (Auto) % Lymph % (Auto) % Motley % (Auto) % Eos % (Auto) % Baso % (Auto) % Neut # (Auto) (1.4-6.5) K/uL Lymph # (Auto) (1.2-3.4) K/uL Motley # (Auto) (0.11-0.59) K/uL Eos # (Auto) (0-0.5) K/uL Baso # (Auto) (0-0.2) K/uL Immature Gran # (Auto) (0.00-0.02) K/uL ESR 32 H (0-21) mm/hr PT INR APTT PTT Ratio D-Dimer (0-500) ug/L FEU Sodium Cancelled Potassium Cancelled Chloride Cancelled Carbon Dioxide Cancelled Anion Gap Cancelled BUN Cancelled Creatinine Cancelled Est Cr Clr Drug Dosing Cancelled Est GFR ( Amer) Cancelled Est GFR (Non-Af Amer) Cancelled BUN/Creatinine Ratio Cancelled Glucose Cancelled Lactate (0.4-2.0) mmol/L Calcium Cancelled Magnesium Cancelled Ferritin Cancelled Total Bilirubin Cancelled AST Cancelled ALT Cancelled Alkaline Phosphatase Cancelled Lactate Dehydrogenase Cancelled Total Creatine Kinase Cancelled CK-MB (CK-2) Cancelled CK/CKMB % Calc Cancelled Troponin I Cancelled C-Reactive Protein Cancelled Total Protein Cancelled Albumin Cancelled Globulin Cancelled Albumin/Globulin Ratio Cancelled Procalcitonin Blood Type Antibody Screen 11/27/20 11/27/20 11/27/20 Range/Units 08:53 08:53 08:53 WBC 8.87 (4.8-10.8) K/uL RBC 3.88 L (4.2-5.4) M/uL Hgb 12.1 (12.0-16.0) g/dL Hct 37.9 (37-47) % MCV 97.7 (80-100) fL MCH 31.2 (25-34) pg MCHC 31.9 L (32-36) g/dL RDW Std Deviation 48.2 H (36.4-46.3) fL RDW Coeff of Yamini 13.7 (11.5-14.5) % Plt Count 198 (130-400) K/uL MPV 9.2 (7.4-10.4) fL Immature Gran % (Auto) 0.2 % Neut % (Auto) 84.9 % Lymph % (Auto) 8.7 % Motley % (Auto) 6.1 % Eos % (Auto) 0.0 % Baso % (Auto) 0.1 % Neut # (Auto) 7.53 H (1.4-6.5) K/uL Lymph # (Auto) 0.77 L (1.2-3.4) K/uL Motley # (Auto) 0.54 (0.11-0.59) K/uL Eos # (Auto) 0.00 (0-0.5) K/uL Baso # (Auto) 0.01 (0-0.2) K/uL Immature Gran # (Auto) 0.02 (0.00-0.02) K/uL ESR (0-21) mm/hr PT Cancelled INR Cancelled APTT Cancelled PTT Ratio Cancelled D-Dimer (0-500) ug/L FEU Sodium Potassium Chloride Carbon Dioxide Anion Gap BUN Creatinine Est Cr Clr Drug Dosing Est GFR ( Amer) Est GFR (Non-Af Amer) BUN/Creatinine Ratio Glucose Lactate (0.4-2.0) mmol/L Calcium Magnesium Ferritin Total Bilirubin AST ALT Alkaline Phosphatase Lactate Dehydrogenase Total Creatine Kinase CK-MB (CK-2) CK/CKMB % Calc Troponin I C-Reactive Protein Total Protein Albumin Globulin Albumin/Globulin Ratio Procalcitonin Cancelled Blood Type Antibody Screen 08/14/20 08/14/20 08/14/20 Range/Units 08:53 09:41 09:41 WBC (4.8-10.8) K/uL RBC (4.2-5.4) M/uL Hgb (12.0-16.0) g/dL Hct (37-47) % MCV (80-100) fL MCH (25-34) pg MCHC (32-36) g/dL RDW Std Deviation (36.4-46.3) fL RDW Coeff of Yamini (11.5-14.5) % Plt Count (130-400) K/uL MPV (7.4-10.4) fL Immature Gran % (Auto) % Neut % (Auto) % Lymph % (Auto) % Motley % (Auto) % Eos % (Auto) % Baso % (Auto) % Neut # (Auto) (1.4-6.5) K/uL Lymph # (Auto) (1.2-3.4) K/uL Motley # (Auto) (0.11-0.59) K/uL Eos # (Auto) (0-0.5) K/uL Baso # (Auto) (0-0.2) K/uL Immature Gran # (Auto) (0.00-0.02) K/uL ESR (0-21) mm/hr PT INR APTT PTT Ratio D-Dimer (0-500) ug/L FEU Sodium Potassium Chloride Carbon Dioxide Anion Gap BUN Creatinine Est Cr Clr Drug Dosing Est GFR ( Amer) Est GFR (Non-Af Amer) BUN/Creatinine Ratio Glucose Lactate 1.1 (0.4-2.0) mmol/L Calcium Magnesium Ferritin Total Bilirubin AST ALT Alkaline Phosphatase Lactate Dehydrogenase Total Creatine Kinase CK-MB (CK-2) CK/CKMB % Calc Troponin I C-Reactive Protein Total Protein Albumin Globulin Albumin/Globulin Ratio Procalcitonin 0.06 Blood Type O Positive Antibody Screen NEGATIVE 08/14/20 08/14/20 08/14/20 Range/Units 09:41 09:41 09:41 WBC (4.8-10.8) K/uL RBC (4.2-5.4) M/uL Hgb (12.0-16.0) g/dL Hct (37-47) % MCV (80-100) fL MCH (25-34) pg MCHC (32-36) g/dL RDW Std Deviation (36.4-46.3) fL RDW Coeff of Yamini (11.5-14.5) % Plt Count (130-400) K/uL MPV (7.4-10.4) fL Immature Gran % (Auto) % Neut % (Auto) % Lymph % (Auto) % Motley % (Auto) % Eos % (Auto) % Baso % (Auto) % Neut # (Auto) (1.4-6.5) K/uL Lymph # (Auto) (1.2-3.4) K/uL Motley # (Auto) (0.11-0.59) K/uL Eos # (Auto) (0-0.5) K/uL Baso # (Auto) (0-0.2) K/uL Immature Gran # (Auto) (0.00-0.02) K/uL ESR (0-21) mm/hr PT 10.5 INR 1.0 APTT 28.4 PTT Ratio 1.0 D-Dimer (0-500) ug/L FEU Sodium 140 Potassium 3.2 L Chloride 103 Carbon Dioxide 34 H Anion Gap 3.0 BUN 17 Creatinine 0.88 Est Cr Clr Drug Dosing 45.4 Est GFR ( Amer) 75.0 Est GFR (Non-Af Amer) 64.7 BUN/Creatinine Ratio 19.4 Glucose 87 Lactate (0.4-2.0) mmol/L Calcium 8.5 Magnesium 1.9 Ferritin 41.3 Total Bilirubin 0.3 AST 22 ALT 28 Alkaline Phosphatase 73 Lactate Dehydrogenase 178 Total Creatine Kinase 52 CK-MB (CK-2) 2.2 CK/CKMB % Calc 4.2 H Troponin I < 0.015 C-Reactive Protein 7.32 H Total Protein 6.8 Albumin 3.1 L Globulin 3.7 Albumin/Globulin Ratio 0.8 L Procalcitonin Blood Type Antibody Screen 08/14/20 Range/Units 09:41 WBC (4.8-10.8) K/uL RBC (4.2-5.4) M/uL Hgb (12.0-16.0) g/dL Hct (37-47) % MCV (80-100) fL MCH (25-34) pg MCHC (32-36) g/dL RDW Std Deviation (36.4-46.3) fL RDW Coeff of Yamini (11.5-14.5) % Plt Count (130-400) K/uL MPV (7.4-10.4) fL Immature Gran % (Auto) % Neut % (Auto) % Lymph % (Auto) % Motley % (Auto) % Eos % (Auto) % Baso % (Auto) % Neut # (Auto) (1.4-6.5) K/uL Lymph # (Auto) (1.2-3.4) K/uL Motley # (Auto) (0.11-0.59) K/uL Eos # (Auto) (0-0.5) K/uL Baso # (Auto) (0-0.2) K/uL Immature Gran # (Auto) (0.00-0.02) K/uL ESR (0-21) mm/hr PT INR APTT PTT Ratio D-Dimer 310 (0-500) ug/L FEU Sodium Potassium Chloride Carbon Dioxide Anion Gap BUN Creatinine Est Cr Clr Drug Dosing Est GFR ( Amer) Est GFR (Non-Af Amer) BUN/Creatinine Ratio Glucose Lactate (0.4-2.0) mmol/L Calcium Magnesium Ferritin Total Bilirubin AST ALT Alkaline Phosphatase Lactate Dehydrogenase Total Creatine Kinase CK-MB (CK-2) CK/CKMB % Calc Troponin I C-Reactive Protein Total Protein Albumin Globulin Albumin/Globulin Ratio Procalcitonin Blood Type Antibody Screen Imaging Data Radiologist's Impression: [place] [phone] XRay Report Patient: JON ECKERT Date: 08/14/20MR#: [id number]: [id number] [facility] [id number]: [facility] Zip: [place], [place] [address]Zoi: 74Location: EDSex: FRoom/Bed:Att Phy:Diagnosis: SOB, COVID +Caroline Phy: Kenzie Feliciano MDService Date: 08/14/20Fa Phy:Interpreting Phy: Jonny Hernandez MDAdmit Phy: Ordering Phy: Alonzo Zamudio MD cc: ~ XR chest 1V portable HISTORY: SEPSIS COMPARISON: Chest 06/11/2020. FINDINGS: No pneumothorax. No pleural effusions. The heart remains mildly enlarged. No evidence for pulmonary edema. Emphysema. Mild diffuse interstitial thickening is noted. There are patchy left base airspace opacities. IMPRESSION: 1. Small patchy left basilar airspace opacities. This could represent atelectasis or pneumonia. 2. Emphysema. ACT 112: Negative or not required by law. Electronically signed by: Jonny Hernandez M.D. 08/14/2020 10:22 AM Dictated: 08/14/20 1020Transcribed: 08/14/20 1020 ECG Data Attestation: I personally reviewed and interpreted this ECG as follows: Indication: + SOB/dyspnea Rate (beats per minute): 103 Rhythm: + sinus tachycardia ECG Intervals/blocks: + Normal QT-c (437) ECG [place]: + Normal ECG ST segments: no ST depression and no ST elevation Comparison ECG Date: from (06/11/2020) Change: no significant change MDM Narrative Patient was seen and evaluated as above in room. Review was performed of nursing notes and vital signs. I did review pertinent previous visits and patient history. After obtaining a thorough history and physical examination the above work up was performed. This 74-year-old female tested positive for Covid. She is requiring oxygen here in the emergency department. She was given Decadron. Her chest x-ray is concerning for Covid pneumonia. Due to the oxygen requirement I did discuss the case with the hospitalist service who did agree to admit the patient. An order was placed for continuous cardiac monitoring. The monitor shows a rate of 75 with Normal SInus rhythm. The patient was evaluated during the global COVID-19 pandemic, and that diagnosis was suspected/considered upon their initial presentation. Their evaluation, treatment and testing was consistent with current guidelines for patients who present with complaints or symptoms that may be related to COVID-19 . Impression & Plan Pneumonia due to COVID-19 virus, Hypokalemia Discharge Plan Visit Data Chief Complaint: Shortness of Breath/Dyspnea Stated Complaint: SOB, COVID + ED Provider: Alonzo Zamudio Discharge Problem: Pneumonia due to COVID-19 virus, Hypokalemia Patient Disposition: Admitted As Inpatient Discharge Instructions Interventions: ED Discharge Assessment Last Done: 08/14/20 14:35
[2020-08-15] MEDS: VENLAFAXINE HCL XR 150 MG CAPXR PO SCH (10:02)
[2020-08-15] MEDS: PANTOprazole 40 MG TAB PO SCH ×2 (10:02→21:15)
--- NOTE | 2020-08-15 10:12 | Pulmonology Progress Note ---
Date of Service August 15, 2020 Assessment & Plan (1) Pneumonia due to COVID-19 virus: (2) COVID-19: (3) Acute and chronic respiratory failure with hypoxia: (4) COPD (chronic obstructive pulmonary disease) case management patient: Impression: 74-year-old female with obstructive lung disease and ongoing tobacco exposure as well as history of lung cancer with recurrent endobronchial disease admitted with COVID-19 pneumonia. Her oxygen requirement is slightly increased over her baseline. Recommendations: 1. COVID-19 pneumonia: Agree with remdesivir and dexamethasone. 2. Hypoxemic respiratory failure: Continue supplemental oxygen titrated to keep saturations at or above 88%. 3. COPD: Continue outpatient inhaler regiment. Continue azithromycin. 4. Encephalopathy: Patient has a history of hypercarbic respiratory failure. Would check repeat blood gas to ensure that noninvasive positive pressure ventilation is not required. The patient is DO NOT INTUBATE. Admission and Anticipated Discharge Date Admission Date: August 14, 2020 Subjective Patient seen and examined. EMR reviewed. 24-hour events noted. The patient has had increasing episodes of confusion. She is now required a sitter. Fortunately her respiratory status remains relatively stable. She is coughing and complains of being somewhat congested. No fevers overnight. She is stable on oxygen around 3 to 4 L Review of Systems Review of Systems: Please refer to H&P Physical Exam Constitutional: + cachectic and + frail appearing; no acute distress Neck: trachea midline, no thyromegaly Respiratory: normal respiratory effort Coarse rhonchi bilaterally. Minimal wheezing Cardiovascular: RRR, no murmur, no edema Gastrointestinal (Abdomen): normal bowel sounds, soft, nontender, no hepatosplenomegaly Musculoskeletal: Extremities: extremities normal to inspection Skin: no rashes, warm and dry Neurologic: Nonfocal exam Lymphatic: no cervical lymphadenopathy Results & Data Results & Data ([facility]) Vital Signs (Past 12 Hours) Vital Signs Temp Pulse Pulse Resp BP BP Pulse Ox 08/15/20 07:51 103 H 18 93 08/15/20 07:19 37.3 C 108 H 22 170/76 H 92 08/15/20 06:33 95 08/15/20 06:28 37.8 C H 98 H 28 H 154/72 H 99 08/15/20 03:46 39.6 C H 103 H 28 H 167/73 H 98 08/15/20 03:40 113 H 180/90 H 08/15/20 03:11 39.2 C H 113 H 32 H 183/76 H 95 08/15/20 01:21 92 Laboratory Results 08/15/20 08:41 08/15/20 08:41 Diagnostic Findings No new films PG Care Time/CCT Total # of Minutes Spent Total Time Spent with Patient: Total time spent is greater than 50% in coordination of care (as documented) at patient's floor/unit and/or counseling patient: Coding Level of Care Code 98943 Subseq Hosp Care Lvl 3 Diagnoses Pneumonia due to COVID-19 virus U07.1; J12.89 COVID-19 U07.1 Acute and chronic respiratory failure with hypoxia J96.21 COPD (chronic obstructive pulmonary disease) case management patient J44.9
[2020-08-15 10:46] LABS: HCO3 ABG 28 mmol/L (19-24); Oxygen Saturation ABG 96.7 % (90-95); PCO2 ABG 50 mmHg (35-46); PO2 ABG 89 mmHg (80-95); pH ABG 7.37 (7.35-7.45)
[2020-08-15 11:03] LABS: Allen Test Pos (Pos)
[2020-08-15] MEDS ORDERED: LORazepam 3 MG/6 ML VIAL IV PRN (11:26)
[2020-08-15] MEDS ORDERED: LORazepam 2 MG/4 ML VIAL IV PRN (11:26)
[2020-08-15] MEDS ORDERED: GABAPENTIN 600MG ALCOHOL WITHDRAWAL LOAD PO STA (11:26)
[2020-08-15] MEDS ORDERED: ATIVAN IV ALCOHOL WITHDRAWL IV PRN (11:26)
[2020-08-15] MEDS ORDERED: LORazepam 1 MG/2 ML VIAL IV PRN (11:26)
[2020-08-15] MEDS ORDERED: GABAPENTIN 600 MG TAB PO ONE (12:00)
[2020-08-15] MEDS: FOLIC ACID 1 MG TAB PO SCH (12:46)
[2020-08-15] MEDS: THIAMINE HCL 100 MG TAB PO SCH (12:46)
[2020-08-15] MEDS: REMDESIVIR 100 MG in SODIUM CHLORIDE 0.9% 230 ML IV SCH (16:39)
[2020-08-15] MEDS: ENOXAPARIN INJ 30 MG/0.3 ML SYR SQ SCH (16:42)
--- NOTE | 2020-08-15 17:13 | Hospitalist Progress Note ---
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 pt started on Remdesivir 200mg x 1day; ( ist dose given yesterday ) then cont 100mg IV x 4 days Dexamethasone 6mg IV daily titrate O2 accordingly pulmonology consulted appreciae input CONFUSION /METABOLIC ENCEPHALOPAHTY : became very confused , agitated overnight climbing out of bed , hallucinating required 1: 1 sitter confusion /delirium : multifactoria -Hypoxemia due to COVID 19 pneumonia /baseline COPD ordered Bipap possible ETOH withdrawl ? per family memebers pt drinks glasses on wine every day ordered ETOH withdrawl portocol ordered Nicotine patch -pt is a chronic heavy smoker -for possible nicotine withdrawal no evidence of sepsis (3) Hypokalemia: corrected (4) COPD (chronic obstructive pulmonary disease): on 2 L 02 via nasal canula cont presented with SOB /Hypoxia , COPD exacerbation , acute on chronic resp failure -Due to CVID 19 pneumonia managemengt as outlined above cont resp supprt on IV dexamethasone Pulm consulted , appreciate input continue Advair, Spirivia (5) Squamous cell carcinoma lung: Follows [facility] [place] pulm consulted (6) Seizure disorder: continue keppra (7) Hyperlipidemia: continue statin therapy AST/ALT WNL monitor closely on remdesivir (8) Benign essential tremor: continue propranolol bid (9) Depression: cont out pt meds (10) DVT prophylaxis: SQ Lovenox, DNR/DNI Disposition:cont to monitor in PCU with standartd COVID 19 isolation Admission and Anticipated Discharge Date Admission Date: August 14, 2020 Subjective Follow-up visit for acute on chronic hypoxemic respiratory failure/COVID-19 pneumonia Patient found to be very confused, disoriented, climbing bed Review of Systems Review of Systems: Unobtainable due to cognitive status Physical Exam Constitutional: WD/WN, vitals as above confused Eyes: + anicteric sclerae ENMT: external ear and nose normal, oropharynx normal Respiratory: + cough and + tachypneic Auscultation: + crackles, + rales and + wheezes Cardiovascular: RRR, no murmur, no edema Gastrointestinal (Abdomen): Percussion/Palpation: abdomen soft; abdomen nontender Neurologic: + confused and + obtunded Results & Data Results & Data ([facility]) Vital Signs (Past 12 Hours) Vital Signs Temp Pulse Pulse Resp BP BP Pulse Ox 08/15/20 16:35 36.8 C 75 22 102/51 L 95 08/15/20 15:44 71 20 92 08/15/20 15:39 70 20 92 08/15/20 12:10 106 H 20 97 08/15/20 11:29 37.8 C H 75 20 93/48 L 94 08/15/20 11:01 84 20 95 08/15/20 07:51 103 H 18 93 08/15/20 07:19 37.3 C 108 H 22 170/76 H 92 08/15/20 06:33 95 08/15/20 06:28 37.8 C H 98 H 28 H 154/72 H 99 (1) Squamous cell carcinoma lung Laterality: left Qualified Code(s): C34.92 - Malignant neoplasm of unspecified part of left bronchus or lung
[2020-08-15] MEDS: SODIUM CHLORIDE 0.9% 10ML FLUSH IV SCH (18:11)
[2020-08-15] MEDS: ROSUVASTATIN CALCIUM 20 MG TAB PO SCH (21:17)
[2020-08-15] MEDS: FLUTICASONE PROPIONATE NA SPR 16 GM BTL NAE SCH (21:17)
[2020-08-15] MEDS: MIRTAZAPINE TAB 15 MG TAB PO SCH (21:17)
[2020-08-15] MEDS: MONTELUKAST SODIUM 10 MG TABLET PO SCH (21:17)
[2020-08-15] MEDS: CETIRIZINE HCL 10 MG TABLET PO SCH (21:20)
[2020-08-15] MEDS: UMECLIDINIUM BROMIDE 62.5MCG/BLISTER 7 PUFFS/INHALER INH SCH (21:20)
[2020-08-16 06:26] LABS: Amphetamines+Metham, Urine Neg (Neg); Barbiturates, Urine Neg (Neg); Benzodiazepine, Urine Neg (Neg); Cocaine, Urine Neg (Neg); MDMA (Ecstacy), Urine Neg (Neg); Methadone, Urine Neg (Neg); Opiate, Urine Neg (Neg); Phencyclidine, Urine Neg (Neg)
[2020-08-16 07:42] LABS: Creatinine Clr Calc Pharmacy 46.8 ml/min; Est GFR (African American) 79.4; Est GFR (Non-African American) 68.5
[2020-08-16] MEDS: ALBUTEROL HFA 8 GM INHALER INH SCH ×4 (08:01→19:20)
[2020-08-16] MEDS: dexAMETHasone 6 MG in SYRINGE 0 ML IV SCH (08:55)
[2020-08-16] MEDS: LINZESS - ORDER AWAITING ACTION SCH ×2 (08:55→16:20)
[2020-08-16] MEDS: FLUTICASONE/VILANTEROL 200/25MCG 14 PUFFS/INHALER INH SCH (08:56)
[2020-08-16] MEDS: VENLAFAXINE HCL XR 37.5 MG CAPXR PO SCH (08:56)
[2020-08-16] MEDS: THIAMINE HCL 100 MG TAB PO SCH (08:56)
[2020-08-16] MEDS: VENLAFAXINE HCL XR 150 MG CAPXR PO SCH (08:57)
[2020-08-16] MEDS: levETIRAcetam 250 MG TAB PO SCH ×2 (08:57→20:32)
[2020-08-16] MEDS: PROPRANOLOL HCL 20 MG TAB PO SCH ×2 (08:57→20:33)
[2020-08-16] MEDS: CALCIUM CARBONATE 1250MG TAB PO SCH (08:57)
[2020-08-16] MEDS: AZITHROMYCIN 250 MG TAB PO SCH (08:57)
[2020-08-16] MEDS: PANTOprazole 40 MG TAB PO SCH ×2 (08:57→20:32)
[2020-08-16] MEDS: CYANOCOBALAMIN (VITAMIN B-12) 100 MCG TABLET PO SCH (08:58)
[2020-08-16] MEDS: ASCORBIC ACID 500 MG TAB PO SCH (08:58)
[2020-08-16] MEDS: ASPIRIN 81 MG ECTAB PO SCH (08:58)
[2020-08-16] MEDS: FOLIC ACID 1 MG TAB PO SCH (08:58)
[2020-08-16] MEDS ORDERED: GABAPENTIN 600 MG TAB PO SCH (12:00)
[2020-08-16] MEDS: REMDESIVIR 100 MG in SODIUM CHLORIDE 0.9% 230 ML IV SCH (17:09)
[2020-08-16] MEDS: ENOXAPARIN INJ 30 MG/0.3 ML SYR SQ SCH (17:10)
[2020-08-16] MEDS: SODIUM CHLORIDE 0.9% 10ML FLUSH IV SCH (17:10)
--- NOTE | 2020-08-16 17:39 | Hospitalist Progress Note ---
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 pt started on Remdesivir 200mg x 1day; ( ist dose given on admission ) then cont 100mg IV x 4 days Dexamethasone 6mg IV daily for 10 days will change steroid to PO Prednisone 40 mg daily -prior to dc pulmonology consulted appreciate input pt appears to be at her baseline resp status cont supportive care for COVID 19 pneumonia CONFUSION /METABOLIC ENCEPHALOPATHY : symptom has improved after starting on ETOH -neurontin protocol was very confused , agitated next day of admission climbing out of bed , hallucinating possible ETOH withdrawl ? per family memebers pt drinks glasses on wine every day ETOH level <0.3 cont neurontin protocol ordered Nicotine patch -pt is a chronic heavy smoker -to prevent nicotine withdrawal (3) Hypokalemia: corrected (4) COPD (chronic obstructive pulmonary disease): on 2 L 02 via nasal canula cont presented with SOB /Hypoxia , COPD exacerbation , acute on chronic resp failure -Due to CVID 19 pneumonia managemengt as outlined above resp status at baseline now on IV dexamethasone Pulm consulted , appreciate input continue Advair, Spirivia (5) Squamous cell carcinoma lung: [place] [facility] [place] pulm consulted (6) Seizure disorder: continue keppra (7) Hyperlipidemia: continue statin therapy AST/ALT WNL monitor closely on remdesivir (8) Benign essential tremor: continue propranolol bid (9) Depression: cont out pt meds (10) DVT prophylaxis: SQ Lovenox, DNR/DNI Disposition:cont to monitor in PCU with standartd COVID 19 isolation Admission and Anticipated Discharge Date Admission Date: August 14, 2020 Subjective Follow-up visit for acute on chronic hypoxemic respiratory failure/COVID-19 pneumonia awake and alert today oriented to person , with episode of confusion no delusion or hallucination has non productive cough no fever or chills no audible wheeze on 2 L 02 via nasal canula -at baseline ( on home 02 2 L ) Review of Systems Review of Systems: All systems reviewed & are unremarkable except as noted in HPI & below Respiratory: + cough Physical Exam Constitutional: WD/WN, vitals as above Eyes: + anicteric sclerae ENMT: external ear and nose normal, oropharynx normal Neck: trachea midline, no thyromegaly Respiratory: + cough Cardiovascular: RRR, no murmur, no edema Gastrointestinal (Abdomen): Percussion/Palpation: abdomen soft; abdomen nontender Musculoskeletal: no cyanosis or clubbing, extremities motor strength 5/5 Neurologic: PERRL, EOMI, accommodation nl, no face palsy, no dysarthria Motor/Sensory: + tremor (chronic ) Psychiatric: Orientation: alert and oriented to person Results & Data Results & Data ([facility]) Vital Signs (Past 12 Hours) Vital Signs Temp Pulse Pulse Resp BP BP Pulse Ox 08/16/20 15:50 37.6 C H 66 128/70 92 08/16/20 15:17 69 20 92 08/16/20 12:06 37.3 C 73 22 128/67 92 08/16/20 11:08 70 18 94 08/16/20 08:01 77 18 95 08/16/20 07:18 36.7 C 81 26 H 163/72 H 90 (1) Squamous cell carcinoma lung Laterality: left Qualified Code(s): C34.92 - Malignant neoplasm of unspecified part of left bronchus or lung
[2020-08-16] MEDS: MIRTAZAPINE TAB 15 MG TAB PO SCH (20:32)
[2020-08-16] MEDS: CETIRIZINE HCL 10 MG TABLET PO SCH (20:32)
[2020-08-16] MEDS: MONTELUKAST SODIUM 10 MG TABLET PO SCH (20:32)
[2020-08-16] MEDS: ROSUVASTATIN CALCIUM 20 MG TAB PO SCH (20:33)
[2020-08-16] MEDS: FLUTICASONE PROPIONATE NA SPR 16 GM BTL NAE SCH (20:33)
[2020-08-16] MEDS: UMECLIDINIUM BROMIDE 62.5MCG/BLISTER 7 PUFFS/INHALER INH SCH (20:34)
[2020-08-17] MEDS: ALBUTEROL HFA 8 GM INHALER INH SCH ×4 (07:19→19:34)
[2020-08-17 07:30] LABS: Creatinine Clr Calc Pharmacy 41.5 ml/min; Est GFR (African American) 66.2; Est GFR (Non-African American) 57.1
[2020-08-17] MEDS: FLUTICASONE/VILANTEROL 200/25MCG 14 PUFFS/INHALER INH SCH (08:38)
[2020-08-17] MEDS: dexAMETHasone 6 MG in SYRINGE 0 ML IV SCH (08:39)
[2020-08-17] MEDS: FOLIC ACID 1 MG TAB PO SCH (08:39)
[2020-08-17] MEDS: levETIRAcetam 250 MG TAB PO SCH ×2 (08:39→20:56)
[2020-08-17] MEDS: AZITHROMYCIN 250 MG TAB PO SCH (08:39)
[2020-08-17] MEDS: ASPIRIN 81 MG ECTAB PO SCH (08:39)
[2020-08-17] MEDS: PROPRANOLOL HCL 20 MG TAB PO SCH ×2 (08:39→20:57)
[2020-08-17] MEDS: PANTOprazole 40 MG TAB PO SCH ×2 (08:39→20:57)
[2020-08-17] MEDS: VENLAFAXINE HCL XR 37.5 MG CAPXR PO SCH (08:40)
[2020-08-17] MEDS: CALCIUM CARBONATE 1250MG TAB PO SCH (08:40)
[2020-08-17] MEDS: THIAMINE HCL 100 MG TAB PO SCH (08:40)
[2020-08-17] MEDS: CYANOCOBALAMIN (VITAMIN B-12) 100 MCG TABLET PO SCH (08:40)
[2020-08-17] MEDS: ASCORBIC ACID 500 MG TAB PO SCH (08:40)
[2020-08-17] MEDS: VENLAFAXINE HCL XR 150 MG CAPXR PO SCH (08:41)
[2020-08-17] MEDS ORDERED: GABAPENTIN 400 MG CAP PO SCH (12:00)
[2020-08-17] MEDS: ENOXAPARIN INJ 30 MG/0.3 ML SYR SQ SCH (15:29)
[2020-08-17] MEDS: SODIUM CHLORIDE 0.9% 10ML FLUSH IV SCH (15:30)
[2020-08-17] MEDS: REMDESIVIR 100 MG in SODIUM CHLORIDE 0.9% 230 ML IV SCH (15:30)
--- NOTE | 2020-08-17 17:18 | Hospitalist Progress Note ---
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 pt started on Remdesivir 200mg x 1day; ( ist dose given on admission ) then cont 100mg IV x 4 days Dexamethasone 6mg IV daily for 10 days will change steroid to PO Prednisone 40 mg daily -prior to dc pulmonology consulted appreciate input pt appears to be at her baseline resp status cont supportive care for COVID 19 pneumonia CONFUSION /METABOLIC ENCEPHALOPATHY : mental status improving symptom has improved after starting on ETOH -neurontin protocol was very confused , agitated next day of admission climbing out of bed , hallucinating possible ETOH withdrawl ? per family memebers pt drinks glasses on wine every day ETOH level <0.3 cont neurontin protocol ordered Nicotine patch -pt is a chronic heavy smoker -to prevent nicotine withdrawal (3) Hypokalemia: corrected (4) COPD (chronic obstructive pulmonary disease): on 2 L 02 via nasal canula cont presented with SOB /Hypoxia , COPD exacerbation , acute on chronic resp failure -Due to CVID 19 pneumonia managemengt as outlined above resp status at baseline now on IV dexamethasone Pulm consulted , appreciate input continue Advair, Spirivia (5) Squamous cell carcinoma lung: Follows [facility] [place] Pulmonology (6) Seizure disorder: continue keppra (7) Hyperlipidemia: continue statin therapy AST/ALT WNL monitor closely on remdesivir (8) Benign essential tremor: continue propranolol bid (9) Depression: cont out pt meds (10) DVT prophylaxis: SQ Lovenox, DNR/DNI Disposition:cont to monitor in PCU with standard COVID 19 isolation update given to Son over phone PT/OT eval requested pt lives at [place] at [facility] independent apartment may need rehab when discharge Admission and Anticipated Discharge Date Admission Date: August 14, 2020 Subjective Follow-up visit for acute on chronic hypoxemic respiratory failure/COVID-19 pneumonia awake and alert today oriented to person , with episode of confusion no delusion or hallucination has non productive cough no fever or chills no audible wheeze on 2 L 02 via nasal canula -at baseline ( on home 02 2 L ) Physical Exam Constitutional: WD/WN, vitals as above Eyes: + anicteric sclerae ENMT: external ear and nose normal, oropharynx normal Neck: trachea midline, no thyromegaly Respiratory: + cough Auscultation: + crackles, + rales and + wheezes Cardiovascular: RRR, no murmur, no edema Gastrointestinal (Abdomen): Percussion/Palpation: abdomen soft; abdomen nontender Musculoskeletal: no cyanosis or clubbing, extremities motor strength 5/5 Neurologic: PERRL, EOMI, accommodation nl, no face palsy, no dysarthria + confused and + obtunded Motor/Sensory: + tremor (chronic ) Psychiatric: Orientation: alert and oriented to person Results & Data Results & Data ([facility]) Vital Signs (Past 12 Hours) Vital Signs Temp Pulse Pulse Resp BP Pulse Ox 08/17/20 15:36 36.9 C 92 H 18 156/77 H 92 08/17/20 15:16 67 18 93 08/17/20 15:01 63 08/17/20 12:04 37.1 C 65 18 145/79 H 93 08/17/20 11:12 67 18 93 08/17/20 08:11 36.9 C 63 18 166/60 H 94 08/17/20 08:00 59 L 08/17/20 07:19 74 18 93 (1) Squamous cell carcinoma lung Laterality: left Qualified Code(s): C34.92 - Malignant neoplasm of unspecified part of left bronchus or lung
[2020-08-17] MEDS: NICOTINE 21 MG/24 HR TDSY TD SCH (20:51)
[2020-08-17] MEDS: UMECLIDINIUM BROMIDE 62.5MCG/BLISTER 7 PUFFS/INHALER INH SCH (20:52)
[2020-08-17] MEDS: FLUTICASONE PROPIONATE NA SPR 16 GM BTL NAE SCH (20:53)
[2020-08-17] MEDS: MIRTAZAPINE TAB 15 MG TAB PO SCH (20:56)
[2020-08-17] MEDS: ROSUVASTATIN CALCIUM 20 MG TAB PO SCH (20:56)
[2020-08-17] MEDS: MONTELUKAST SODIUM 10 MG TABLET PO SCH (20:57)
[2020-08-17] MEDS: CETIRIZINE HCL 10 MG TABLET PO SCH (20:57)
[2020-08-18] MEDS: ALBUTEROL HFA 8 GM INHALER INH SCH ×4 (06:55→20:47)
[2020-08-18 07:40] LABS: Creatinine Clr Calc Pharmacy 52.2 ml/min; Est GFR (African American) 87.5; Est GFR (Non-African American) 75.5
[2020-08-18] MEDS: PANTOprazole 40 MG TAB PO SCH ×2 (08:29→19:56)
[2020-08-18] MEDS: ACETAMINOPHEN 325 MG TAB PO PRN (08:32)
[2020-08-18] MEDS: dexAMETHasone 6 MG in SYRINGE 0 ML IV SCH (08:33)
[2020-08-18] MEDS: FOLIC ACID 1 MG TAB PO SCH (08:33)
[2020-08-18] MEDS: VENLAFAXINE HCL XR 37.5 MG CAPXR PO SCH (08:33)
[2020-08-18] MEDS: THIAMINE HCL 100 MG TAB PO SCH (08:33)
[2020-08-18] MEDS: PROPRANOLOL HCL 20 MG TAB PO SCH ×2 (08:34→19:56)
[2020-08-18] MEDS: AZITHROMYCIN 250 MG TAB PO SCH (08:36)
[2020-08-18] MEDS: ASCORBIC ACID 500 MG TAB PO SCH (08:37)
[2020-08-18] MEDS: CYANOCOBALAMIN (VITAMIN B-12) 100 MCG TABLET PO SCH (08:37)
[2020-08-18] MEDS: CALCIUM CARBONATE 1250MG TAB PO SCH (08:37)
[2020-08-18] MEDS: NICOTINE 21 MG/24 HR TDSY TD SCH (08:38)
[2020-08-18] MEDS: levETIRAcetam 250 MG TAB PO SCH ×2 (08:38→19:55)
[2020-08-18] MEDS: VENLAFAXINE HCL XR 150 MG CAPXR PO SCH (08:42)
[2020-08-18] MEDS: ASPIRIN 81 MG ECTAB PO SCH (08:44)
[2020-08-18] MEDS: FLUTICASONE/VILANTEROL 200/25MCG 14 PUFFS/INHALER INH SCH (08:44)
[2020-08-18] MEDS ORDERED: GABAPENTIN 100 MG CAP PO SCH (12:00)
[2020-08-18] MEDS ORDERED: hydrALAZINE HCL 20 MG/ML VIAL ONE (12:02)
[2020-08-18] MEDS: hydrALAZINE HCL 20 MG/ML VIAL IV PRN ×2 (12:35→23:21)
[2020-08-18] MEDS: REMDESIVIR 100 MG in SODIUM CHLORIDE 0.9% 230 ML IV SCH (15:25)
[2020-08-18] MEDS: ENOXAPARIN INJ 30 MG/0.3 ML SYR SQ SCH (16:17)
[2020-08-18] MEDS: SODIUM CHLORIDE 0.9% 10ML FLUSH IV SCH (17:16)
--- NOTE | 2020-08-18 17:25 | Hospitalist Progress Note ---
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, COPD on 2 L of O2 with exertion and at at bedtime, bronchiolitis obliterans, tobacco abuse, complex partial seizures, depression with anxiety, dementia, hyperlipidemia, constipation who presents to ED with worsening shortness of breath x1 week and recent Covid 19 diagnosis pt started on Remdesivir 200mg x 1day; ( ist dose given on admission ) then completed 100mg IV x 4 days Dexamethasone 6mg IV daily changed steroid to PO Prednisone 40 mg daily -complete total 10 days tx pulmonology consulted appreciate input pt appears to be at her baseline resp status cont supportive care for COVID 19 pneumonia pt reports she continued to smoke 2-3 cig/day -nicotine patch ordered strict smoking cessation recommended , pt verbalized understanding CONFUSION /METABOLIC ENCEPHALOPATHY : resolved symptom has improved after starting on ETOH -Neurontin protocol was very confused , agitated next day of admission climbing out of bed , hallucinating possible ETOH withdrawal ETOH level <0.3 Pt reports she drinks a small glass of wine every day at dinner /was very depressed during this quarantine [facility] , which limited her social interaction-may have been drinking a bit more than usual counselling provided to limit ETOH intake no s/s of active withdrawal now speech fluent , no normal thought process has chronic tremors on bilat hands at baseline (3) Hypokalemia: corrected (4) COPD (chronic obstructive pulmonary disease): on 2 L 02 via nasal canula cont presented with SOB /Hypoxia , COPD exacerbation , acute on chronic resp failure -Due to CVID 19 pneumonia managemengt as outlined above resp status at baseline now changed to PO prednisone Pulm consulted , appreciate input continue [place] (5) Squamous cell carcinoma lung: Follows with [facility] [place] Pulmonology (6) Seizure disorder: continue keppra (7) Hyperlipidemia: continue statin therapy (8) Benign essential tremor: continue propranolol bid (9) Depression: cont out pt meds (10) DVT prophylaxis: SQ Lovenox, DNR/DNI Disposition: PT/OT eval requested pt lives at [place] at [facility] [place] [facility] department may need rehab when discharge Admission and Anticipated Discharge Date Admission Date: August 14, 2020 Subjective Follow-up visit for acute on chronic hypoxemic respiratory failure/COVID-19 pneumonia pt's mental status is at baseline, watching TV , understands her disease process participates in treatment plan actively no delusion or hallucination for past 48 hrs cough has improved no fever or chills no audible wheeze on 2 L 02 via nasal canula -at baseline ( on home 02 2 L ) pt [facility] , willing to go to rehab at the [facility] if needed Review of Systems Review of Systems: All systems reviewed & are unremarkable except as noted in HPI & below Physical Exam Constitutional: WD/WN, vitals as above Eyes: + anicteric sclerae ENMT: external ear and nose normal, oropharynx normal Neck: trachea midline, no thyromegaly Respiratory: normal respiratory effort and + cough Auscultation: + diminished lung sounds Cardiovascular: RRR, no murmur, no edema Gastrointestinal (Abdomen): Percussion/Palpation: abdomen soft; abdomen nontender Musculoskeletal: no cyanosis or clubbing, extremities motor strength 5/5 Neurologic: PERRL, EOMI, accommodation nl, no face palsy, no dysarthria Motor/Sensory: + tremor (chronic ) Psychiatric: A+Ox3, euthymic affect Results & Data Results & Data ([facility]) Vital Signs (Past 12 Hours) Vital Signs Temp Pulse Pulse Resp BP BP Pulse Ox 08/18/20 16:00 71 08/18/20 15:37 36.7 C 76 17 156/81 H 90 08/18/20 15:08 87 18 91 08/18/20 14:56 36.8 C 60 20 187/77 H 87 L 08/18/20 13:56 160/73 H 08/18/20 12:32 36.9 C 70 162/74 H 93 08/18/20 11:26 67 20 91 08/18/20 09:00 194/77 H 08/18/20 07:31 69 08/18/20 06:58 78 20 91 (1) Squamous cell carcinoma lung Laterality: left Qualified Code(s): C34.92 - Malignant neoplasm of unspecified part of left bronchus or lung
[2020-08-18] MEDS: LORazepam 0.5 MG TAB PO PRN ×2 (18:11→23:21)
[2020-08-18] MEDS: FLUTICASONE PROPIONATE NA SPR 16 GM BTL NAE SCH (19:50)
[2020-08-18] MEDS: UMECLIDINIUM BROMIDE 62.5MCG/BLISTER 7 PUFFS/INHALER INH SCH (19:51)
[2020-08-18] MEDS: MIRTAZAPINE TAB 15 MG TAB PO SCH (19:55)
[2020-08-18] MEDS: MONTELUKAST SODIUM 10 MG TABLET PO SCH (19:55)
[2020-08-18] MEDS: ROSUVASTATIN CALCIUM 20 MG TAB PO SCH (19:55)
[2020-08-18] MEDS: CETIRIZINE HCL 10 MG TABLET PO SCH (19:56)
[2020-08-19] MEDS: ALBUTEROL HFA 8 GM INHALER INH SCH ×2 (07:54→11:07)
[2020-08-19] MEDS: hydrALAZINE HCL 20 MG/ML VIAL IV PRN ×2 (08:06→15:37)
[2020-08-19] MEDS: THIAMINE HCL 100 MG TAB PO SCH (08:10)
[2020-08-19] MEDS: levETIRAcetam 250 MG TAB PO SCH ×2 (08:10→20:57)
[2020-08-19] MEDS: AZITHROMYCIN 250 MG TAB PO SCH (08:10)
[2020-08-19] MEDS: VENLAFAXINE HCL XR 37.5 MG CAPXR PO SCH (08:10)
[2020-08-19] MEDS: PANTOprazole 40 MG TAB PO SCH ×2 (08:11→20:57)
[2020-08-19] MEDS: FOLIC ACID 1 MG TAB PO SCH (08:11)
[2020-08-19] MEDS: CALCIUM CARBONATE 1250MG TAB PO SCH (08:11)
[2020-08-19] MEDS: VENLAFAXINE HCL XR 150 MG CAPXR PO SCH (08:12)
[2020-08-19] MEDS: CYANOCOBALAMIN (VITAMIN B-12) 100 MCG TABLET PO SCH (08:12)
[2020-08-19] MEDS: PROPRANOLOL HCL 20 MG TAB PO SCH ×2 (08:13→20:57)
[2020-08-19] MEDS: ASPIRIN 81 MG ECTAB PO SCH (08:13)
[2020-08-19] MEDS: predniSONE 20 MG TAB PO SCH (08:14)
[2020-08-19] MEDS: ASCORBIC ACID 500 MG TAB PO SCH (08:14)
[2020-08-19] MEDS: FLUTICASONE/VILANTEROL 200/25MCG 14 PUFFS/INHALER INH SCH (08:15)
[2020-08-19] MEDS: NICOTINE 21 MG/24 HR TDSY TD SCH (08:15)
[2020-08-19 10:29] LABS: Creatinine Clr Calc Pharmacy 48.4 ml/min; Est GFR (African American) 79.9
--- NOTE | 2020-08-19 11:58 | Psychiatric Consultation ---
Date of Consultation August 19, 2020 Impression / Recommendations Impression Dr. Giovanna Bonilla was directly involved in review and discussion of the patient's case and participated in medical decision making regarding treatment recommendations. RECOMMENDATIONS: 08/19 - Psychiatric consultation requested by hospitalist service to evaluate patient for "paranoia", hospital documentation suggests the patient is/was being worked up for encephalopathy/delirium. - Pt, herself, is denying significant episodes of confusion - however staff is consistently reporting these events, worse in morning. Would advise utilization of behavioral strategies at this time - patient should be frequently reoriented to person, place, time, event, and intervention to be performed. Pt should be permitted to utilize corrective lenses and assistive hearing devices when appropriate. Permit use of familiar comfort items when appropriate as well. Keep patient awake and active during the day, with light on in room. Conversely, dark room should be maintained at night with sleep being encouraged. Use of prn medications should be limited to behavioral concerns that threaten the safety of the patient or staff, in order to prevent worsening of confusion and excessive sedation. If necessary for these situations, low-dose quetiapine or olanzapine could be considered if behavioral strategies are ineffective or safety concerns arise. - Coordinate care with Dr. Gonzalez, patient's outpatient psychiatrist. Medication list acquired and reviewed. Outpatient records indicate that the patient has had issues with compliance. Pt clarifies discrepancy with aripipraz ole prescription, stating she stopped the medication on her own a few weeks ago. She was also unaware of recommendations to slowly titrate her gabapentin by 100mg a week to dosing of 200mg TID. - If appropriate when considering other spheres of current treatment, titration of gabapentin could be considered. Would suggest titrating to a dose of 100mg qAM, 100mg in afternoon, and 200mg qHS. Additional titration could be continued with advisement from her outpatient psychiatrist. - We appreciate the opportunity to participate in the care of this patient. Please reach out to our service with any additional questions or updates. Psych History Identifying Data 75-year-old female admitted medically on 08/14/2020 after presenting to the ED with shortness of breath and recent COVID-19 diagnosis. It was reported that patient had been experiencing episodes of confusion. Psychiatric consultation was requested by the hospitalist service to evaluate patient for paranoia. Chief Complaint "It's been this whole pandemic...it's just...ah..." History of Present Illness Chayo Rosario is a 75-year-old female admitted medically on 08/14/2020 after presenting to the ED with positive COVID-19 test after experiencing increased shortness of breath for the week prior. Inpatient documentation was reviewed, with reports suggesting intermittent episodes of confusion. Nursing documentation suggests the patient had been confused and uncooperative, she had reportedly been calling family members and requesting that they call police. Documentation suggests the patient herself called 911 and was making statements to staff suggesting distrust and possibly paranoia. Pt did speak with our psychiatric nurse liaison and admitted she recalled the events of last evening and she intended to call 911 as she felt she was forced into bed when she wanted to get up. She was upset that she was made to do something she did not want to do. Pt did provide verbal consent to allow coordination of care with her outpatient psychiatrist. Consultation completed via phone call to patient's room phone ([phone]), due to COVID-19 precautions. Pt did identify herself and did recall speaking to our liaison earlier today. The patient denies any acute concerns, and states "it's been this whole pandemic...it's just...ah..." The patient admits that she has been discussing her decline in mood and increased anxiety with her outpatient psychiatrist. She reports that her mood and anxiety/"tremors" are worse in the morning, and whether they get better or worse "depends on what the day may bring." Pt does feel that venlafaxine has been helpful in lifting her mood, and patient's primary focus is on her anxiety. She does report having several supports she has reached out to, primarily by phone. We did review her medication list per [facility] records. Pt was to be taking aripiprazole 1mg each morning (she had independently restarted the medication prior to her 07/20 outpatient appointment). Pt states she stopped this medication independently a few weeks ago as "it didn't seem like it was helping much." The patient also states she was unaware of recommendation to titrate gabapentin to target anxiety and "shaking." Pt was open to this medication adjustment at this time if appropriate. Pt denies SI and any acute safety concerns. When asked about episodes of confusion, the patient admits "I just don't feel much like myself any more, I feel lazy." She does not feel that she has been overly confused during this hospitalization. She denied any current concerns regarding treatment here in the hospital and is hopeful for discharge home soon. Pt was asked if we could continue reaching out to her via phone to check in, and she declined at this time stating "there's just too much else going on right now." Pt was encouraged to inform her staff should she desire to speak again, and we would reach out." Past Psychiatric History Previous Psych History: Outpatient psychiatric records indicate treatment for anxiety dating back to the . Current diagnoses include: major depressive disorder, recurrent, moderate; generalized anxiety disorder; mild cognitive impairment (so stated); and nicotine dependence. Outpatient Services: Psychiatrist - Dr. Ronaldo Gonzalez - [facility] Previous therapy with Ericka Ruiz Previous Psych Admissions: None History of Previous Suicide Attempt: No Past Medication Trials: Per outpatient records: 1. Serzone 2. Ambien 3. Ativan 4. Zoloft 5. Wellbutrin 6. Neurontin 7. Effexor 8. Remeron 9. BuSpar 10.Abilify 11.Chantix-worsening anxiety and depression 12.Valium-too sedating 13.Trazodone 14.Klonopin Allergies Allergy/AdvReac Type Severity Reaction Status Date / Time pollen extracts Allergy Intermediate CONGESTION Verified 08/14/20 11:43 Home Medications Medication Instructions Recorded Confirmed Type Spiriva with HandiHaler 1 cap INHALATION HS 11/28/18 08/14/20 History fluticasone propion-salmeterol 1 inh INHALATION BID 11/28/18 08/14/20 History [Advair Diskus] pantoprazole [Protonix] 40 mg PO BID 11/28/18 08/14/20 History Linzess 145 mcg PO DAILYBB 01/11/19 08/14/20 History cetirizine [Zyrtec] 10 mg PO HS 01/11/19 08/14/20 History ascorbic acid (vitamin C) [Vitamin 1,000 mg PO QAM 01/31/19 08/14/20 History C] albuterol sulfate 2 puff INHALATION Q4H PRN 11/08/19 08/14/20 History calcium carbonate [Calcium 500] 500 mg PO QAM 11/08/19 08/14/20 History cyanocobalamin (vitamin B-12) 100 mcg PO QAM 11/08/19 08/14/20 History fluticasone propionate [Flonase 2 spray INTRANASAL HS 11/08/19 08/14/20 History Allergy Relief] polyethylene glycol 3350 [Miralax] 17 g PO DAILY PRN 11/08/19 08/14/20 History rosuvastatin [Crestor] 20 mg PO HS 11/08/19 08/14/20 History sennosides 17.2 mg PO DAILY PRN 11/08/19 08/14/20 History venlafaxine 150 mg PO QAM 11/08/19 08/14/20 History levetiracetam 750 mg PO BID 11/17/19 08/14/20 History docusate sodium 100 mg capsule 100 mg PO DAILY 03/30/20 08/14/20 History acetaminophen [Tylenol] 325 - 650 mg PO QID PRN 06/11/20 08/14/20 History ipratropium-albuterol 3 ml NEB Q6H PRN 06/11/20 08/14/20 History montelukast 10 mg tablet 10 mg PO HS #30 tab 07/17/20 08/14/20 Rx amoxicillin 875 mg-potassium 1 tab PO BID #20 tab 08/11/20 08/14/20 Rx clavulanate 125 mg tablet aspirin [Aspir-81] 81 mg PO DAILY 08/14/20 08/14/20 History azelastine 1 spray INTRANASAL BID 08/14/20 08/14/20 History gabapentin 100 mg PO TID 08/14/20 08/14/20 History lorazepam 0.25 mg PO BID PRN 08/14/20 08/14/20 History mirtazapine 30 mg PO HS 08/14/20 08/14/20 History propranolol 20 mg PO BID 08/14/20 08/14/20 History venlafaxine 37.5 mg PO DAILY 08/14/20 08/14/20 History Family History Denies known family history of mental health conditions. Substance Abuse History Admits to consuming a glass of wine each evening with dinner and a cigarette at night. Denies use of illicit substances. Personal History Living Arrangements: Supervised Living ([place] ) Highest Grade Completed: College (Degree in History from [employer]) Employment Status: Retired Marital Status: Beliefs That Will Affect Care: Episcopal Patient History Medical History Anxiety Asthma Benign essential tremor Carpal tunnel syndrome of right wrist Chronic constipation COPD (chronic obstructive pulmonary disease) COPD (chronic obstructive pulmonary disease) case management patient Depression Distal radius fracture, right Encephalitis due to human herpes simplex virus (HSV) GERD (gastroesophageal reflux disease) controlled Hiatal hernia History of colon polyps Hyperlipidemia On home oxygen therapy 2L O2 via [place] HS and prn strenuous activity Osteoarthritis 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 Scoliosis Seizure disorder Sinusitis Squamous cell carcinoma lung Currently under surveillance, pathology shows basaloid squamous cell Tremor Surgical History History of bilateral cataract extraction History of detached retina repair right eye History of dilatation and curettage History of left oophorectomy History of Mohs micrographic surgery for skin cancer History of open reduction and internal fixation (ORIF) procedure right hip History of repair of left rotator cuff History of repair of right rotator cuff History of thumb surgery left History of tonsillectomy and adenoidectomy History of wisdom tooth extraction Hx of colonoscopy Family History Mother , age 80 ` s Alzheimer disease Colon cancer Father , age 80` s Alzheimer disease Sister Breast cancer had chemotherapy and radiation therapy at age45 Sister No problems noted. Sister , age 77 Coronary heart disease Alzheimer disease Aunt Breast cancer Social History Smoking Status: Current some day smoker Age Started Using Tobacco: 17; packs per day: 1; Years Smoked: 50; Cigarettes Per Day: 2; Second Hand Exposure: No; Do You Dip or Chew Tobacco: No; Tobacco Cessation Education Requested by Patient: No Hx Alcohol Use: Yes Alcohol type: wine Alcohol type Comment: 1 glass of wine a day Hx Substance Use: No Preferred Language: Khmer Communication Ability: Effective Director Apparel Required: No Beliefs That Will Affect Care: Episcopal marital status: Current Living Situation: Alone Current Living Situation Comment: [facility] current occupational status: retired 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 Other Information That Helps Us Care for You: No Feels Safe at Home: Yes Safety Concerns: Feels Safe At This Time Assistive Devices: Oxygen - Continuous Physical Exam Psychiatric: Orientation: alert, oriented x 3 and cooperative (superficially) Appearance: Could not be observed Eye Contact: Could not be observed Motor Behavior: Could not be observed Speech: normal rate/rhythm/volume of speech Mood: + depressed mood and + anxious mood Thought Process: goal directed thought process and clear/coherent thought process Thought Content: reality based without delusions and + loneliness; no hopelessness and no worthlessness Suicidal Thoughts: denies suicidal thoughts, denies suicidal plan and denies suicidal intent Homicidal Thoughts: denies homicidal thoughts Hallucinations: no auditory hallucinations and no visual hallucinations Cognition: attention grossly intact and language grossly intact Estimated Intelligence: consistent with education level Insight: + fair insight Judgement: + fair judgement Vital Signs (Past 24 Hours): Last Vital Signs Temp 36.4 C L 08/19/20 07:28 Pulse 70 08/19/20 11:11 Resp 18 08/19/20 11:11 BP 192/75 H 08/19/20 07:28 Pulse Ox 94 08/19/20 11:11 Exam Statement: Physical exam limited as conversation occurred via phone, so many spheres could not be fully assessed given lack of in-person interaction. This was related to COVID-19 airborne precautions and inability to evaluate the patient directly due to positive COVID-19 test prior to admission. Review of Systems Constitutional: reports general fatigue Cardiovascular: denied Respiratory: SOB Gastrointestinal: denied Neurological: reports feeling "shaky" Psychiatric: denies symptoms other than stated above Total of at least 10 systems reviewed, pertinent positives as above and in HPI. Results & Data (PSY) Medications Administered Acetaminophen (Acetaminophen 325 Mg Tab) 650 mg PO Q4H PRN PRN Reason: Pain or Fever Stop: 09/13/20 15:10 Last Admin: 08/18/20 08:32 Dose: 650 mg Documented by: [id number] Admin: 08/15/20 03:15 Dose: 650 mg Documented by: [id number] Admin: 08/14/20 16:05 Dose: 650 mg Documented by: [id number] Albuterol (Albut/Ipratrop 3mg/0.5mg Neb 3 Ml Vial) 3 ml NEB Q6H PRN PRN Reason: Shortness Of Breath Stop: 09/13/20 15:10 Last Admin: 08/18/20 15:07 Dose: 3 ml Documented by: [id number] Albuterol (Albuterol Hfa 8 Gm Inhaler) 2 puffs INH QIDR [facility] Stop: 09/14/20 06:59 Last Admin: 08/19/20 11:07 Dose: 2 puffs Documented by: [id number] Admin: 08/19/20 07:54 Dose: 2 puffs Documented by: [id number] Admin: 08/18/20 20:47 Dose: 2 puffs Documented by: [id number] Admin: 08/18/20 15:08 Dose: Not Given Documented by: [id number] Admin: 08/18/20 11:24 Dose: 2 puffs Documented by: [id number] Admin: 08/18/20 06:55 Dose: 2 puffs Documented by: [id number] Admin: 08/17/20 19:34 Dose: 2 puffs Documented by: [id number] Admin: 08/17/20 15:15 Dose: 2 puffs Documented by: [id number] Admin: 08/17/20 11:12 Dose: 2 puffs Documented by: [id number] Admin: 08/17/20 07:19 Dose: 2 puffs Documented by: [id number] Admin: 08/16/20 19:20 Dose: 2 puffs Documented by: [id number] Admin: 08/16/20 15:14 Dose: 2 puffs Documented by: [id number] Admin: 08/16/20 11:08 Dose: 2 puffs Documented by: [id number] Admin: 08/16/20 08:01 Dose: 2 puffs Documented by: [id number] Admin: 08/15/20 19:27 Dose: 2 puffs Documented by: [id number] Admin: 08/15/20 15:13 Dose: 2 puffs Documented by: [id number] Admin: 08/15/20 11:00 Dose: 2 puffs Documented by: [id number] Admin: 08/15/20 07:51 Dose: 2 puffs Documented by: [id number] Ascorbic Acid (Ascorbic Acid 500 Mg Tab) 1,000 mg PO QAM [facility] Stop: 09/14/20 08:59 Last Admin: 08/19/20 08:14 Dose: 1,000 mg Documented by: [id number] Admin: 08/18/20 08:37 Dose: 1,000 mg Documented by: [id number] Admin: 08/17/20 08:40 Dose: 1,000 mg Documented by: [id number] Admin: 08/16/20 08:58 Dose: 1,000 mg Documented by: [id number] Admin: 08/15/20 09:12 Dose: 1,000 mg Documented by: [id number] Aspirin (Aspirin 81 Mg Ectab) 81 mg PO DAILY [facility] Stop: 09/14/20 08:59 Last Admin: 08/19/20 08:13 Dose: 81 mg Documented by: [id number] Admin: 08/18/20 08:44 Dose: Not Given Documented by: [id number] Admin: 08/17/20 08:39 Dose: 81 mg Documented by: [id number] Admin: 08/16/20 08:58 Dose: 81 mg Documented by: [id number] Admin: 08/15/20 09:11 Dose: 81 mg Documented by: [id number] Azithromycin (Azithromycin 250 Mg Tab) 250 mg PO [facility] Stop: 08/23/20 08:59 Last Admin: 08/19/20 08:10 Dose: 250 mg Documented by: [id number] Admin: 08/18/20 08:36 Dose: 250 mg Documented by: [id number] Admin: 08/17/20 08:39 Dose: 250 mg Documented by: [id number] Admin: 08/16/20 08:57 Dose: 250 mg Documented by: [id number] Calcium Carbonate (Calcium Carbonate 1250mg Tab) [facility] Stop: 09/14/20 08:59 Last Admin: 08/19/20 08:11 Dose: 1,250 mg Documented by: [id number] Admin: 08/18/20 08:37 Dose: 1,250 mg Documented by: [id number] Admin: 08/17/20 08:40 Dose: 1,250 mg Documented by: [id number] Admin: 08/16/20 08:57 Dose: 1,250 mg Documented by: [id number] Admin: 08/15/20 09:12 Dose: 1,250 mg Documented by: [id number] Cetirizine HCl (Cetirizine Hcl 10 Mg Tablet) 10 mg PO HS [facility] Stop: 09/13/20 20:59 Last Admin: 08/18/20 19:56 Dose: 10 mg Documented by: [id number] Admin: 08/17/20 20:57 Dose: 10 mg Documented by: [id number] Admin: 08/16/20 20:32 Dose: 10 mg Documented by: [id number] Admin: 08/15/20 21:20 Dose: 10 mg Documented by: [id number] Admin: 08/14/20 20:13 Dose: 10 mg Documented by: [id number] Cyanocobalamin (Cyanocobalamin (Vitamin B-12) 100 Mcg Tablet) 100 mcg PO QAM [facility] Stop: 09/14/20 08:59 Last Admin: 08/19/20 08:12 Dose: 100 mcg Documented by: [id number] Admin: 08/18/20 08:37 Dose: 100 mcg Documented by: [id number] Admin: 08/17/20 08:40 Dose: 100 mcg Documented by: [id number] Admin: 08/16/20 08:58 Dose: 100 mcg Documented by: [id number] Admin: 08/15/20 09:12 Dose: 100 mcg Documented by: [id number] Enoxaparin Sodium (Enoxaparin Inj 30 Mg/0.3 Ml Syr) 30 mg SQ Q24H [facility] Stop: 09/13/20 15:59 Last Admin: 08/18/20 16:17 Dose: 30 mg Documented by: [id number] Admin: 08/17/20 15:29 Dose: 30 mg Documented by: [id number] Admin: 08/16/20 17:10 Dose: 30 mg Documented by: [id number] Admin: 08/15/20 16:42 Dose: 30 mg Documented by: [id number] Admin: 08/14/20 16:51 Dose: 30 mg Documented by: [id number] Fluticasone Propionate (Fluticasone Propionate Na Spr 16 Gm Btl) 2 sprays KELLY HS [facility] Stop: 09/13/20 20:59 Last Admin: 08/18/20 19:50 Dose: 2 sprays Documented by: [id number] Admin: 08/17/20 20:53 Dose: 2 sprays Documented by: [id number] Admin: 08/16/20 20:33 Dose: 2 sprays Documented by: [id number] Admin: 08/15/20 21:17 Dose: 2 sprays Documented by: [id number] Admin: 08/14/20 20:15 Dose: 2 sprays Documented by: [id number] Fluticasone/Vilanterol (Fluticasone/Vilanterol 200/25mcg 14 Puffs/Inhaler) 1 puffs INH DAILY [facility] Stop: 09/14/20 08:59 Last Admin: 08/19/20 08:15 Dose: 1 puffs Documented by: [id number] Admin: 08/18/20 08:44 Dose: 1 puffs Documented by: [id number] Admin: 08/17/20 08:38 Dose: 1 puffs Documented by: [id number] Admin: 08/16/20 08:56 Dose: 1 puffs Documented by: [id number] Admin: 08/14/20 20:14 Dose: 1 puffs Documented by: [id number] Folic Acid (Folic Acid 1 Mg Tab) 1 mg PO QAM [facility] Stop: 09/14/20 11:59 Last Admin: 08/19/20 08:11 Dose: 1 mg Documented by: [id number] Admin: 08/18/20 08:33 Dose: 1 mg Documented by: [id number] Admin: 08/17/20 08:39 Dose: 1 mg Documented by: [id number] Admin: 08/16/20 08:58 Dose: 1 mg Documented by: [id number] Admin: 08/15/20 12:46 Dose: 1 mg Documented by: [id number] Gabapentin (Gabapentin 100 Mg Cap) 100 mg PO TID [facility] Stop: 09/13/20 15:10 Last Admin: 08/15/20 09:12 Dose: 100 mg Documented by: [id number] Admin: 08/14/20 20:16 Dose: 100 mg Documented by: [id number] Admin: 08/14/20 16:51 Dose: 100 mg Documented by: [id number] Hydralazine HCl (Hydralazine Hcl 20 Mg/Ml Vial) 10 mg IV Q8H PRN PRN Reason: SBP > 160 Stop: 09/17/20 11:44 Last Admin: 08/19/20 08:06 Dose: 10 mg Documented by: [id number] Admin: 08/18/20 23:21 Dose: 10 mg Documented by: [id number] Admin: 08/18/20 12:35 Dose: 10 mg Documented by: [id number] Levetiracetam (Levetiracetam 250 Mg Tab) 750 mg PO BID [facility] Stop: 09/13/20 20:59 Last Admin: 08/19/20 08:10 Dose: 750 mg Documented by: [id number] Admin: 08/18/20 19:55 Dose: 750 mg Documented by: [id number] Admin: 08/18/20 08:38 Dose: 750 mg Documented by: [id number] Admin: 08/17/20 20:56 Dose: 750 mg Documented by: [id number] Admin: 08/17/20 08:39 Dose: 750 mg Documented by: [id number] Admin: 08/16/20 20:32 Dose: 750 mg Documented by: [id number] Admin: 08/16/20 08:57 Dose: 750 mg Documented by: [id number] Admin: 08/15/20 21:15 Dose: 750 mg Documented by: [id number] Admin: 08/15/20 09:12 Dose: 750 mg Documented by: [id number] Admin: 08/14/20 20:15 Dose: 750 mg Documented by: [id number] Lorazepam (Lorazepam 0.5 Mg Tab) 0.25 mg PO BID PRN PRN Reason: Anxiety Stop: 09/13/20 15:10 Last Admin: 08/18/20 23:21 Dose: 0.25 mg Documented by: [id number] Admin: 08/18/20 18:11 Dose: 0.25 mg Documented by: [id number] Admin: 08/15/20 09:10 Dose: 0.25 mg Documented by: [id number] Magnesium Hydroxide (Magnesium Hydroxide Susp 30 Ml Udc) 30 ml PO Q12H PRN PRN Reason: Constipation Stop: 09/13/20 15:10 Last Admin: 08/18/20 13:56 Dose: 30 ml Documented by: [id number] Mirtazapine (Mirtazapine Tab 15 Mg Tab) 30 mg PO HS [facility] Stop: 09/13/20 20:59 Last Admin: 08/18/20 19:55 Dose: 30 mg Documented by: [id number] Admin: 08/17/20 20:56 Dose: 30 mg Documented by: [id number] Admin: 08/16/20 20:32 Dose: 30 mg Documented by: [id number] Admin: 08/15/20 21:17 Dose: 30 mg Documented by: [id number] Admin: 08/14/20 20:14 Dose: 30 mg Documented by: [id number] Miscellaneous (Remove Nicoderm Patch) 1 ea N/A [id number] [facility] Stop: 09/17/20 08:58 Last Admin: 08/19/20 08:15 Dose: 1 ea Documented by: [id number] Admin: 08/18/20 08:43 Dose: 1 ea Documented by: [id number] Montelukast Sodium (Montelukast Sodium 10 Mg Tablet) 10 mg PO HS [facility] Stop: 09/13/20 20:59 Last Admin: 08/18/20 19:55 Dose: 10 mg Documented by: [id number] Admin: 08/17/20 20:57 Dose: 10 mg Documented by: [id number] Admin: 08/16/20 20:32 Dose: 10 mg Documented by: [id number] Admin: 08/15/20 21:17 Dose: 10 mg Documented by: [id number] Admin: 08/14/20 20:13 Dose: 10 mg Documented by: [id number] Nicotine (Nicotine 21 Mg/24 Hr Tdsy) 21 mg TD QAM [facility] Stop: 09/16/20 18:59 Last Admin: 08/19/20 08:15 Dose: 21 mg Documented by: [id number] Admin: 08/18/20 08:38 Dose: 21 mg Documented by: [id number] Admin: 08/17/20 20:51 Dose: 21 mg Documented by: [id number] Pantoprazole Sodium (Pantoprazole 40 Mg Tab) 40 mg PO BID [facility] Stop: 09/13/20 20:59 Last Admin: 08/19/20 08:11 Dose: 40 mg Documented by: [id number] Admin: 08/18/20 19:56 Dose: 40 mg Documented by: [id number] Admin: 08/18/20 08:29 Dose: 40 mg Documented by: [id number] Admin: 08/17/20 20:57 Dose: 40 mg Documented by: [id number] Admin: 08/17/20 08:39 Dose: 40 mg Documented by: [id number] Admin: 08/16/20 20:32 Dose: 40 mg Documented by: [id number] Admin: 08/16/20 08:57 Dose: 40 mg Documented by: [id number] Admin: 08/15/20 21:15 Dose: 40 mg Documented by: [id number] Admin: 08/15/20 10:02 Dose: 40 mg Documented by: [id number] Admin: 08/14/20 20:16 Dose: 40 mg Documented by: [id number] Prednisone (Prednisone 20 Mg Tab) 40 mg PO DAILY [facility] Stop: 08/24/20 09:01 Last Admin: 08/19/20 08:14 Dose: 40 mg Documented by: [id number] Propranolol HCl (Propranolol Hcl 20 Mg Tab) 20 mg PO BID [facility] Stop: 09/13/20 20:59 Last Admin: 08/19/20 08:13 Dose: 20 mg Documented by: [id number] Admin: 08/18/20 19:56 Dose: 20 mg Documented by: [id number] Admin: 08/18/20 08:34 Dose: 20 mg Documented by: [id number] Admin: 08/17/20 20:57 Dose: 20 mg Documented by: [id number] Admin: 08/17/20 08:39 Dose: 20 mg Documented by: [id number] Admin: 08/16/20 20:33 Dose: 20 mg Documented by: [id number] Admin: 08/16/20 08:57 Dose: 20 mg Documented by: [id number] Admin: 08/15/20 21:15 Dose: 20 mg Documented by: [id number] Admin: 08/15/20 09:12 Dose: 20 mg Documented by: [id number] Admin: 08/14/20 20:14 Dose: 20 mg Documented by: [id number] Rosuvastatin Calcium (Rosuvastatin Calcium 20 Mg Tab) 20 mg PO HS [facility] Stop: 09/13/20 20:59 Last Admin: 08/18/20 19:55 Dose: 20 mg Documented by: [id number] Admin: 08/17/20 20:56 Dose: 20 mg Documented by: [id number] Admin: 08/16/20 20:33 Dose: 20 mg Documented by: [id number] Admin: 08/15/20 21:17 Dose: 20 mg Documented by: [id number] Admin: 08/14/20 20:13 Dose: 20 mg Documented by: [id number] Thiamine HCl (Thiamine Hcl 100 Mg Tab) 100 mg PO QAM [facility] Stop: 09/14/20 11:59 Last Admin: 08/19/20 08:10 Dose: 100 mg Documented by: [id number] Admin: 08/18/20 08:33 Dose: 100 mg Documented by: [id number] Admin: 08/17/20 08:40 Dose: 100 mg Documented by: [id number] Admin: 08/16/20 08:56 Dose: 100 mg Documented by: [id number] Admin: 08/15/20 12:46 Dose: 100 mg Documented by: [id number] Umeclidinium [place] (Umeclidinium [place] 62.5mcg/Blister 7 Puffs/Inhaler) 1 puffs INH HS [facility] Stop: 09/13/20 20:59 Last Admin: 08/18/20 19:51 Dose: 1 puffs Documented by: [id number] Admin: 08/17/20 20:52 Dose: 1 puffs Documented by: [id number] Admin: 08/16/20 20:34 Dose: 1 puffs Documented by: [id number] Admin: 08/15/20 21:20 Dose: 1 puffs Documented by: [id number] Admin: 08/14/20 20:14 Dose: 1 puffs Documented by: [id number] Venlafaxine HCl (Venlafaxine Hcl Xr 37.5 Mg Capxr) 37.5 mg PO DAILY [facility] Stop: 09/14/20 08:59 Last Admin: 08/19/20 08:10 Dose: 37.5 mg Documented by: [id number] Admin: 08/18/20 08:33 Dose: 37.5 mg Documented by: [id number] Admin: 08/17/20 08:40 Dose: 37.5 mg Documented by: [id number] Admin: 08/16/20 08:56 Dose: 37.5 mg Documented by: [id number] Admin: 08/15/20 09:12 Dose: 37.5 mg Documented by: [id number] Venlafaxine HCl (Venlafaxine Hcl Xr 150 Mg Capxr) 150 mg PO QAM [facility] Stop: 09/14/20 08:59 Last Admin: 08/19/20 08:12 Dose: 150 mg Documented by: [id number] Admin: 08/18/20 08:42 Dose: 150 mg Documented by: [id number] Admin: 08/17/20 08:41 Dose: 150 mg Documented by: [id number] Admin: 08/16/20 08:57 Dose: 150 mg Documented by: [id number] Admin: 08/15/20 10:02 Dose: 150 mg Documented by: [id number] Coding Level of Care Code 01451 [facility] Lvl 2 Comment Telephone/Telehealth visit - COVID-19 precautions
[2020-08-19] MEDS: ACETAMINOPHEN 325 MG TAB PO PRN (12:23)
[2020-08-19] MEDS ORDERED: ALBUTEROL HFA 8 GM INHALER INH PRN (14:12)
[2020-08-19] MEDS: ENOXAPARIN INJ 30 MG/0.3 ML SYR SQ SCH (15:35)
--- NOTE | 2020-08-19 19:12 | Hospitalist Progress Note ---
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 This could represent atelectasis or pneumonia. Completed course of remdesivir Received Dexamethasone 6mg IV; then transition to steroid PO Prednisone 40 mg daily -complete total 10 days tx Pulmonology on board Continue oxygen supplement Clinaialy stable CONFUSION /METABOLIC ENCEPHALOPATHY : symptom has improved after starting on ETOH -Neurontin protocol was very confused , agitated next day of admission climbing out of bed , hallucinating possible ETOH withdrawal ETOH level <0.3 Pt reports she drinks a small glass of wine every day at dinner /was very depressed during this quarantine [facility] closed , which limited her social interaction-may have been drinking a bit more than usual counselling provided to limit ETOH intake resolved (3) Hypokalemia: Stable (4) COPD (chronic obstructive pulmonary disease): on 2 L 02 via nasal canula cont presented with SOB /Hypoxia , COPD exacerbation , acute on chronic resp failure -Due to CVID 19 pneumonia managemengt as outlined above resp status at baseline now changed to PO prednisone Pulm consulted , appreciate input continue [place] (5) Squamous cell carcinoma lung: Follows with [facility] Pulmonology (6) Seizure disorder: continue keppra (7) Hyperlipidemia: continue statin therapy (8) Benign essential tremor: continue propranolol bid (9) Depression: cont out pt meds (10) DVT prophylaxis: SQ Lovenox, DNR/DNI Disposition: PT/OT eren requested pt lives at [place] [facility] at independent apartment may need rehab when discharge Admission and Anticipated Discharge Date Admission Date: August 14, 2020 Subjective Pt was seen and examined Lying in bed with no distress Pt said that she feels much better today Denies any chest pain, palpitation, dizziness and fever Physical Exam Physical Exam: General- No acute distress Head- atraumatic Eyes- PERRL, EOMI, ENT- oropharynx clear Neck- supple, no JVD Lungs- No wheezing Heart- regular rhythm; no murmur Abdomen- normal bowel sounds, soft, nontender Extremities- no calf tenderness Neuro- alert, oriented x 3; PERRL, EOMI; no facial palsy; no dysarthria, +tremors Skin- warm & dry Results & Data Results & Data ([facility]) Vital Signs (Past 12 Hours) Vital Signs Temp Pulse Pulse Resp BP BP Pulse Ox 08/19/20 19:07 36.5 C 85 23 151/75 H 91 08/19/20 16:00 75 08/19/20 15:38 205/90 H 08/19/20 12:16 36.5 C 65 18 181/70 H 93 08/19/20 11:11 70 18 94 08/19/20 08:00 85 08/19/20 07:55 79 18 95 08/19/20 07:28 36.4 C L 79 18 192/75 H 97 (1) Squamous cell carcinoma lung Laterality: left Qualified Code(s): C34.92 - Malignant neoplasm of unspecified part of left bronchus or lung
[2020-08-19] MEDS: FLUTICASONE PROPIONATE NA SPR 16 GM BTL NAE SCH (20:53)
[2020-08-19] MEDS: UMECLIDINIUM BROMIDE 62.5MCG/BLISTER 7 PUFFS/INHALER INH SCH (20:53)
[2020-08-19] MEDS: MONTELUKAST SODIUM 10 MG TABLET PO SCH (20:57)
[2020-08-19] MEDS: CETIRIZINE HCL 10 MG TABLET PO SCH (20:57)
[2020-08-19] MEDS: MIRTAZAPINE TAB 15 MG TAB PO SCH (20:57)
[2020-08-19] MEDS: ROSUVASTATIN CALCIUM 20 MG TAB PO SCH (20:57)
[2020-08-20] MEDS: PANTOprazole 40 MG TAB PO SCH (08:46)
[2020-08-20] MEDS: predniSONE 20 MG TAB PO SCH (08:46)
[2020-08-20] MEDS: VENLAFAXINE HCL XR 150 MG CAPXR PO SCH (08:46)
[2020-08-20] MEDS: NICOTINE 21 MG/24 HR TDSY TD SCH (08:47)
[2020-08-20] MEDS: CALCIUM CARBONATE 1250MG TAB PO SCH (08:47)
[2020-08-20] MEDS: FOLIC ACID 1 MG TAB PO SCH (08:47)
[2020-08-20] MEDS: AZITHROMYCIN 250 MG TAB PO SCH (08:47)
[2020-08-20] MEDS: CYANOCOBALAMIN (VITAMIN B-12) 100 MCG TABLET PO SCH (08:47)
[2020-08-20] MEDS: ASCORBIC ACID 500 MG TAB PO SCH (08:47)
[2020-08-20] MEDS: VENLAFAXINE HCL XR 37.5 MG CAPXR PO SCH (08:48)
[2020-08-20] MEDS: levETIRAcetam 250 MG TAB PO SCH (08:48)
[2020-08-20] MEDS: THIAMINE HCL 100 MG TAB PO SCH (08:48)
[2020-08-20] MEDS: ASPIRIN 81 MG ECTAB PO SCH (08:48)
[2020-08-20] MEDS: FLUTICASONE/VILANTEROL 200/25MCG 14 PUFFS/INHALER INH SCH (08:49)
[2020-08-20] MEDS: PROPRANOLOL HCL 20 MG TAB PO SCH (09:48)
[2020-08-20] MEDS: ACETAMINOPHEN 325 MG TAB PO PRN (09:48)
--- NOTE | 2020-08-20 13:04 | Psychiatric Progress Note ---
Date of Service August 20, 2020 Impression / Recommendations Impression Dr. Giovanna Bonilla was directly involved in review and discussion of the patient's case and participated in medical decision making regarding treatment recommendations. RECOMMENDATIONS: 08/19 - Psychiatric consultation requested by hospitalist service to evaluate patient for "paranoia", hospital documentation suggests the patient is/was being worked up for encephalopathy/delirium. - Pt, herself, is denying significant episodes of confusion - however staff is consistently reporting these events, worse in morning. Would advise utilization of behavioral strategies at this time - patient should be frequently reoriented to person, place, time, event, and intervention to be performed. Pt should be permitted to utilize corrective lenses and assistive hearing devices w hen appropriate. Permit use of familiar comfort items when appropriate as well. Keep patient awake and active during the day, with light on in room. Conversely, dark room should be maintained at night with sleep being encouraged. Use of prn medications should be limited to behavioral concerns that threaten the safety of the patient or staff, in order to prevent worsening of confusion and excessive sedation. If necessary for these situations, low-dose quetiapine or olanzapine could be considered if behavioral strategies are ineffective or safety concerns arise. - Coordinate care with Dr. Gonzalez, patient's outpatient psychiatrist. Medication list acquired and reviewed. Outpatient records indicate that the patient has had issues with compliance. Pt clarifies discrepancy with ar ipiprazole prescription, stating she stopped the medication on her own a few weeks ago. She was also unaware of recommendations to slowly titrate her gabapentin by 100mg a week to dosing of 200mg TID. - If appropriate when considering other spheres of current treatment, titration of gabapentin could be considered. Would suggest titrating to a dose of 100mg qAM, 100mg in afternoon, and 200mg qHS. Additional titration could be continued with advisement from her outpatient psychiatrist. - We appreciate the opportunity to participate in the care of this patient. Please reach out to our service with any additional questions or updates. 08/20 - Case discussed with patient's outpatient psychiatrist - additional collateral obtained. It is reported that patient's cognition and executive function has likely not returned to baseline following an episodes of encephalopathy >1 year ago. Although acute delirium cannot be ruled out, it is reported that patient has had mild hallucinations and paranoia prior to this hospital admission. - Given patient's self-discontinuation of aripiprazole, it was suggested that low-dose olanzapine could be considered as an alternative to target paranoia while likely also targeting anxiety. This was discussed with the patient who is willing for the medication change after reviewing risks, benefits, and potential side effects. Pt was informed of [employer] Box warning regarding risk of by stroke or cardiac event when antipsychotic medications are utilized in the elderly population or those with dementia diagnoses. Pt did verbalize understanding and was agreeable with the medication initiation. - Will initiate olanzapine at 1.25mg qAM and 2.5mg qHS. Could titrate as indicated is paranoia/confusion continues, but would suggest utilizing the lowest effective dose of medication given advancing age and concern for cognitive deficits. - Pt states she is uncertain of when she will be discharged. She agreed to allow us to gather updates from her nursing staff, but is not particularly interested in daily phone conversations with our staff. Pt was encouraged to reach out to our unit with needs as desired. Once a discharge timeline is known, our service can assist with ensuring patient has a follow-up psychiatry appointment scheduled. Interval History Identifying Information 75-year-old female admitted medically on 08/14/2020 after presenting to the ED with shortness of breath and recent COVID-19 diagnosis. It was reported that patient had been experiencing episodes of confusion. Psychiatric consultation was requested by the hospitalist service to evaluate patient for paranoia. Phone call completed today for follow-up and to discuss treatment recommendations. Chief Complaint "Oh, I'm just not a happy camper." Review of Systems Notes Constitutional: reports headache, general weakness Cardiovascular: denied Respiratory: denied Gastrointestinal: denied Neurological: denied Musculoskeletal: reports back pain Psychiatric: denies symptoms other than stated above Total of at least 10 systems reviewed, pertinent positives as above and in HPI. Telehealth Telehealth Telehealth Options: Telephone only For the duration of the visit, provider was performing the assessment from: The same facility as the patient After establishing a telemedicine visit, patient was: Patient/authorized rep acknowledged consent and understanding and Gave permission to continue telehealth session Subjective Subjective Patient's case was reviewed and discussed during morning report with supervising psychiatrist and psychiatric nurse liaison. Updates received from patient's outpatient psychiatrist. Her psychiatrist did report that the patient is a busy and independent person at baseline, and she has struggled with restrictions related to the COVID-19 pandemic. It is also reported that return to baseline cognitive functioning has not clearly been observed since an episode of encephalitis/encephalopathy over 1 year ago. Pt continues to have mild deficits in executive function as well as episodes of hallucinatory experiences even prior to her current hospitalization. As patient has self-discontinued her aripiprazole, it was suggested that low-dose olanzapine be offered to the patient in order to target paranoia and hallucinatory episodes while also likely providing some benefit for increased anxiety. Phone encounter was conducted today to engage patient in discussion of these recommendations and discuss progress since admission. Initially, patient stated she was unable to talk, reporting "I need to move to a chair and they were supposed to be letting me out today, but now they're not. I'm also eating." Pt was reassured that this provider could call back, and patient agreed to a later conversation. She indicates that she is a bit frustrated as she was hoping to return home today. The patient does endorse ongoing anxiety, which she claims worsen her tremors. Pt is discouraged as the presence of the tremors makes it more difficult for her to eat. The patient was open to discussing medication recommendations suggested by her outpatient psychiatrist. After lengthy discussion regarding risks, benefits, and potential side effects, the patient did agree to starting low-dose olanzapine on a scheduled basis to improve clarity of thought, target paranoia, and provide off- label benefit for anxiety. Pt continues to deny any acute SI or other safety concerns. She denied other needs at this time. Physical Exam Psychiatric Orientation: alert, oriented to person, oriented to place and cooperative Appearance: Could not be observed Eye Contact: Could not be observed Motor Behavior: Could not be observed Speech: normal rate/rhythm/volume of speech Affect: Could not be observed Mood: + depressed mood and + anxious mood "I'm just not a happy camper" Thought Process: goal directed thought process and + concrete thought process Thought Content: reality based without delusions; no hopelessness Suicidal Thoughts: denies suicidal thoughts Hallucinations: no auditory hallucinations and no visual hallucinations Cognition: attention grossly intact and language grossly intact Insight: + fair insight Judgement: + fair judgement Vital Signs (Past 24 Hours) Last Vital Signs Temp 36.2 C L 08/20/20 11:57 Pulse 88 08/20/20 11:57 Resp 19 08/20/20 11:57 BP 167/82 H 08/20/20 11:57 Pulse Ox 92 08/20/20 11:57 Physical exam limited due to telephone conversation, COVID-19 airborne precautions. Unable to visually examine the patient at this time. Results & Data ([facility]) Current Inpatient Medications Current Inpatient Medications: Current Inpatient Medications Acetaminophen (Acetaminophen 325 Mg Tab) 650 mg PO Q4H PRN PRN Reason: Pain or Fever Stop: 09/13/20 15:10 Last Admin: 08/20/20 09:48 Dose: 650 mg Documented by: Al Hydrox/Mg Hydrox/Simethicone (Aluminum/Magnesium Susp 30 Ml Udc) 15 ml PO Q4H PRN PRN Reason: Dyspepsia Stop: 09/13/20 15:10 Albuterol (Albut/Ipratrop 3mg/0.5mg Neb 3 Ml Vial) 3 ml NEB Q6H PRN PRN Reason: Shortness Of Breath Stop: 09/13/20 15:10 Last Admin: 08/18/20 15:07 Dose: 3 ml Documented by: Albuterol (Albuterol Hfa 8 Gm Inhaler) 2 puffs INH Q4R PRN PRN Reason: Shortness Of Breath Or Wheezing Stop: 09/18/20 14:11 Ascorbic Acid (Ascorbic Acid 500 Mg Tab) 1,000 mg PO QAM [facility] Stop: 09/14/20 08:59 Last Admin: 08/20/20 08:47 Dose: 1,000 mg Documented by: Aspirin (Aspirin 81 Mg Ectab) 81 mg PO DAILY [facility] Stop: 09/14/20 08:59 Last Admin: 08/20/20 08:48 Dose: 81 mg Documented by: Azithromycin (Azithromycin 250 Mg Tab) 250 mg PO QAM [facility] Stop: 08/23/20 08:59 Last Admin: 08/20/20 08:47 Dose: 250 mg Documented by: Calcium Carbonate (Calcium Carbonate 1250mg Tab) 1,250 mg PO QAM [facility] Stop: 09/14/20 08:59 Last Admin: 08/20/20 08:47 Dose: 1,250 mg Documented by: Cetirizine HCl (Cetirizine Hcl 10 Mg Tablet) 10 mg PO HS [facility] Stop: 09/13/20 20:59 Last Admin: 08/19/20 20:57 Dose: 10 mg Documented by: Cyanocobalamin (Cyanocobalamin (Vitamin B-12) 100 Mcg Tablet) 100 mcg PO QAM [facility] Stop: 09/14/20 08:59 Last Admin: 08/20/20 08:47 Dose: 100 mcg Documented by: Enoxaparin Sodium (Enoxaparin Inj 30 Mg/0.3 Ml Syr) 30 mg SQ Q24H [facility] Stop: 09/13/20 15:59 Last Admin: 08/19/20 15:35 Dose: 30 mg Documented by: Fluticasone Propionate (Fluticasone Propionate Na Spr 16 Gm Btl) 2 sprays KELLY HS [facility] Stop: 09/13/20 20:59 Last Admin: 08/19/20 20:53 Dose: 2 sprays Documented by: Fluticasone/Vilanterol (Fluticasone/Vilanterol 200/25mcg 14 Puffs/Inhaler) 1 puffs INH DAILY [facility] Stop: 09/14/20 08:59 Last Admin: 08/20/20 08:49 Dose: 1 puffs Documented by: Folic Acid (Folic Acid 1 Mg Tab) 1 mg PO QAM [facility] Stop: 09/14/20 11:59 Last Admin: 08/20/20 08:47 Dose: 1 mg Documented by: Gabapentin (Gabapentin 100 Mg Cap) 100 mg PO TID [facility] Stop: 09/13/20 15:10 Last Admin: 08/15/20 09:12 Dose: 100 mg Documented by: Hydralazine HCl (Hydralazine Hcl 20 Mg/Ml Vial) 10 mg IV Q8H PRN PRN Reason: SBP > 160 Stop: 09/17/20 11:44 Last Admin: 08/19/20 15:37 Dose: 10 mg Documented by: Lorazepam (Ativan) 1 mg in 2 mls @ 2 mls/min IV UD PRN; Protocol PRN Reason: EtOH Withdrawl AWSS Score 6,7 Stop: 09/14/20 11:25 Lorazepam (Ativan) 2 mg in 4 mls @ 4 mls/min IV UD PRN; Protocol PRN Reason: EtOH Withdrawl AWSS Score 8,9 Stop: 09/14/20 11:25 Lorazepam (Ativan) 3 mg in 6 mls @ 4 mls/min IV ONCE PRN; Protocol PRN Reason: EtOH Withdrawl AWSS Score >=10 Stop: 09/14/20 11:25 Levetiracetam (Levetiracetam 250 Mg Tab) 750 mg PO BID [facility] Stop: 09/13/20 20:59 Last Admin: 08/20/20 08:48 Dose: 750 mg Documented by: Lorazepam (Lorazepam 0.5 Mg Tab) 0.25 mg PO BID PRN PRN Reason: Anxiety Stop: 09/13/20 15:10 Last Admin: 08/18/20 23:21 Dose: 0.25 mg Documented by: Magnesium Hydroxide (Magnesium Hydroxide Susp 30 Ml Udc) 30 ml PO Q12H PRN PRN Reason: Constipation Stop: 09/13/20 15:10 Last Admin: 08/18/20 13:56 Dose: 30 ml Documented by: Mirtazapine (Mirtazapine Tab 15 Mg Tab) 30 mg PO HS [facility] Stop: 09/13/20 20:59 Last Admin: 08/19/20 20:57 Dose: 30 mg Documented by: Miscellaneous (Remove Nicoderm Patch) 1 ea N/A DAILY@[id number] [facility] Stop: 09/17/20 08:58 Last Admin: 08/20/20 09:16 Dose: 1 ea Documented by: Montelukast Sodium (Montelukast Sodium 10 Mg Tablet) 10 mg PO HS [facility] Stop: 09/13/20 20:59 Last Admin: 08/19/20 20:57 Dose: 10 mg Documented by: Nicotine (Nicotine 21 Mg/24 Hr Tdsy) 21 mg TD QAM [facility] Stop: 09/16/20 18:59 Last Admin: 08/20/20 08:47 Dose: 21 mg Documented by: Ondansetron HCl (Ondansetron Inj 2 Mg/Ml 2 Ml Vial) 4 mg IV Q6H PRN PRN Reason: Nausea Stop: 09/13/20 15:10 Pantoprazole Sodium (Pantoprazole 40 Mg Tab) 40 mg PO BID [facility] Stop: 09/13/20 20:59 Last Admin: 08/20/20 08:46 Dose: 40 mg Documented by: Polyethylene Glycol (Polyethylene (Miralax) 17 Gm Pack) 17 gm PO DAILY PRN PRN Reason: Constipation Stop: 09/13/20 15:10 Prednisone (Prednisone 20 Mg Tab) 40 mg PO DAILY [facility] Stop: 08/24/20 09:01 Last Admin: 08/20/20 08:46 Dose: 40 mg Documented by: Propranolol HCl (Propranolol Hcl 20 Mg Tab) 20 mg PO BID [facility] Stop: 09/13/20 20:59 Last Admin: 08/20/20 09:48 Dose: 20 mg Documented by: Rosuvastatin Calcium (Rosuvastatin Calcium 20 Mg Tab) 20 mg PO HS [facility] Stop: 09/13/20 20:59 Last Admin: 08/19/20 20:57 Dose: 20 mg Documented by: Thiamine HCl (Thiamine Hcl 100 Mg Tab) 100 mg PO QAM [facility] Stop: 09/14/20 11:59 Last Admin: 08/20/20 08:48 Dose: 100 mg Documented by: Umeclidinium [place] (Umeclidinium [place] 62.5mcg/Blister 7 Puffs/Inhaler) 1 puffs INH HS [facility] Stop: 09/13/20 20:59 Last Admin: 08/19/20 20:53 Dose: 1 puffs Documented by: Venlafaxine HCl (Venlafaxine Hcl Xr 37.5 Mg Capxr) 37.5 mg PO DAILY [facility] Stop: 09/14/20 08:59 Last Admin: 08/20/20 08:48 Dose: 37.5 mg Documented by: Venlafaxine HCl (Venlafaxine Hcl Xr 150 Mg Capxr) 150 mg PO QAM [facility] Stop: 09/14/20 08:59 Last Admin: 08/20/20 08:46 Dose: 150 mg Documented by: Mental Health & Subst Abuse Tx Psychiatrist Name of Psychiatrist: [facility] - Dr. Gonzalez Psychiatrist's Time of Appointment with Psychiatrist: Reschedule when discharged from hospital
[2020-08-20] MEDS: LORazepam 0.5 MG TAB PO PRN (14:30)
[2020-08-20] MEDS ORDERED: OLANZAPINE 2.5 MG TAB PO SCH (21:00)
--- NOTE | 2020-08-21 08:35 | Discharge Summary ---
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 She follows with [facility] [facility] pulmonology and was last seen in clinic 08/11/2020. At that time she had noticed sinus congestion, sore throat and worsening shortness of breath. A Covid test was ordered and she received notification yesterday of positive result. She does live alone. Today she was brought to ER secondary to worsening shortness of breath, sinus congestion with purulent drainage, & productive purulent cough. She denies documented fever, chills, sweats, lightheadedness, dizziness, syncope, chest pain, palpitations, hemoptysis, nausea, vomiting, abdominal pain. She denies loss of taste or smell. She did have 2 episodes of diarrhea today but denies melena or hematochezia. In regards to COPD she does take Advair twice a day, nebulizer twice a day as well as as needed albuterol. Over the last several days she has been requiring her albuterol daily. She does follow pulmonology in regards to her lingula lung CA. She continues to smoke and at her most recent visit it was for bronchoscopy was not recommended to determine if there is recurrence of cancer. In regards to her oxygen use she states she typically uses 2 L at night and with exertion. She has not been monitoring her oxygen but has been putting it on during the day when she feels more short of breath. The only medication she took this morning her Effexor and Keppra. In ED patient required 4.5 L of O2 to maintain oxygen saturation. She was significantly hypertensive and mildly tachycardic. Temp mildly elevated 37.6. BP now 170/66. Lab work notable for WBC 8.87k, H&H 12.1 and 37.9, platelet 198, ESR 32, CRP 7.32, K3.2, BUN 17, creatinine 0.88, ferritin 41.3, CK 52, pro-Giuseppe 0.06. Chest x-ray consistent with small patchy left basilar opacity which could represent atelectasis or pneumonia. Admission Exam Per Admitting Provider Constitutional- elderly female, coughing Eyes- PERRL, anicteric sclerae, conjunctivae normal ENMT- external ear and nose normal; oropharynx clear Neck- trachea midline; no thyromegaly Respiratory- scattered rales, mild wheezing Cardiovascular- RRR, no murmur/gallop/rub appreciated; no JVD; no pretibial edema; normal capillary refill Abdomen- normal bowel sounds, soft, nontender, nondistended; no palpable masses or hepatosplenomegaly Musculoskeletal- no cyanosis Skin- warm & dry; normal color; no rashes Neurologic- no facial palsy; no dysarthria or aphasia; motor strength extremities grossly intact; patellar DTR's 1/2 bilaterally; resting tremor of hands Psychiatric- alert, oriented x 3; normal affect Lymphatic- no cervical adenopathy Principal Diagnosis Acute and chronic respiratory failure with hypoxia: Pneumonia due to COVID-19 virus CONFUSION /METABOLIC ENCEPHALOPATHY : Hypokalemia: COPD (chronic obstructive pulmonary disease): Squamous cell carcinoma lung: Seizure disorder: Discharge Exam General- No acute distress Head- atraumatic Eyes- PERRL, EOMI, ENT- oropharynx clear Neck- supple, no JVD Lungs- No wheezing Heart- regular rhythm; no murmur Abdomen- normal bowel sounds, soft, nontender Extremities- no calf tenderness Neuro- alert, oriented x 3; PERRL, EOMI; no facial palsy; no dysarthria, +tremors Skin- warm & dry Discharge Data Allergies Allergy/AdvReac Type Severity Reaction Status Date / Time pollen extracts Allergy Intermediate CONGESTION Verified 08/14/20 11:43 Consultations 08/14/20 10:53 ED Decision to Admit Stat 08/14/20 15:11 Consult Case Management - Discharge Planning Routine Consult Pulmonology Routine 08/19/20 06:41 Consult Psychiatry Routine Hospital Course (1) Acute and chronic respiratory failure with hypoxia: (2) Pneumonia due to COVID-19 virus: This is a 74-year-old female who has significant past medical history of 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 This could represent atelectasis or pneumonia. Completed course of remdesivir Received Dexamethasone 6mg IV; then transition to steroid PO Prednisone 40 mg daily -complete total 10 days tx Pulmonology on board Continue oxygen supplement Clinaialy stable CONFUSION /METABOLIC ENCEPHALOPATHY : Pt reports she drinks a small glass of wine every day at dinner /was very depressed during this quarantine [facility] was closed , which limited her social interaction-may have been drinking a bit more than usual Confused and agitated next day of admission possible ETOH withdrawal ETOH level <0.3 symptom has improved after starting on ETOH -Neurontin protocol Psych consulted Case discussed with Psych that recommended to start on low dose of Olanzapine 1.25mg daily and 2.5mg PO HS counselling provided to limit ETOH intake resolved (3) Hypokalemia: Stable (4) COPD (chronic obstructive pulmonary disease): on 2 L 02 via nasal canula cont presented with SOB /Hypoxia , COPD exacerbation , acute on chronic resp failure -Due to CVID 19 pneumonia managemengt as outlined above resp status at baseline now changed to PO prednisone, will continue for 4 more days Pulm consulted , appreciate input continue Advair, Spirivia (5) Squamous cell carcinoma lung: Follows with [facility] [place] [facility] Pulmonology (6) Seizure disorder: continue keppra (7) Hyperlipidemia: continue statin therapy (8) Benign essential tremor: continue propranolol bid (9) Depression: cont out pt meds Follow up with psych outpatient (10) DVT prophylaxis: SQ Lovenox DNR/DNI Disposition: PT/OT eval requested pt lives at [place] [facility] Total Time Total Time Spent Total Time Spent (In Minutes): 35 minutes Total Time Includes: Examination of the Patient, Discharge Planning, Medication Reconciliation, Communication With Other Providers and Other Discharge Plan Discharge Items Patient Disposition: Personal Senior Care Reason For Visit: COVID, ACUTE HYPOXEMIA Discharge Diagnosis: Acute and chronic respiratory failure with hypoxia: Pneumonia due to COVID-19 virus CONFUSION /METABOLIC ENCEPHALOPATHY : Hypokalemia: COPD (chronic obstructive pulmonary disease): Squamous cell carcinoma lung: Seizure disorder: Activity: Resume your previous activity Non-emergency contact: Primary Care Provider Call non-emergency contact if: you have any medication questions and your temperature is above 101 Follow-up/Referrals: Kenzie Feliciaon MD [Primary Care Provider] - (Date & Time 08/27/2020 2:20 PM Provider Kenzie Feliciano MD Department General Internal Medicine [facility] PLEASE NOTE: THIS IS A TELEVIDEO APPOINTMENT. PLEASE FOLLOW THE INSTRUCTION IN YOUR EMAIL. IF YOU HAVE ANY QUESTIONS, PLEASE CALL .) Diet: Heart Healthy Addtl Attending Provider Instructions: Follow up with your primary care provider Dr. Feliciano on 08/27/2020 2:20 PM Follow up with your psychiatry Continue oxygen supplement with 2 L NC Continue fall and seizure precaution Counseling on smoking cessation and alcohol use Continue physical and occupational therapy Home Isolation COVID-19 Instructions The following information about Home Isolation is from the CDC Website: https://www.cdc.gov/coronavirus/2019-ncov/hcp/plrcowgy-zopdpwv-poteug.html Stay home except to get medical care People who are mildly ill with COVID-19 are able to isolate at home during their illness. You should restrict activities outside your home, except for getting medical care. Do not go to work, school, or public areas. Avoid using public transportation, ride-sharing, or taxis. Separate yourself from other people and animals in your home People: As much as possible, you should stay in a specific room and away from other people in your home. Also, you should use a separate bathroom, if available. Animals: You should restrict contact with pets and other animals while you are sick with COVID-19, just like you would around other people. Although there have not been reports of pets or other animals becoming sick with COVID-19, it is still recommended that people sick with COVID-19 limit contact with animals until more information is known about the virus. When possible, have another member of your household care for your animals while you are sick. If you are sick with COVID-19, avoid contact with your pet, including petting, snuggling, being kissed or licked, and sharing food. If you must care for your pet or be around animals while you are sick, wash your hands before and after you interact with pets and wear a face mask. Call ahead before visiting your doctor If you have a medical appointment, call the healthcare provider and tell them that you have or may have COVID-19. This will help the healthcare providers office take steps to keep other people from getting infected or exposed. Wear a face mask You should wear a face mask when you are around other people (e.g., sharing a room or vehicle) or pets and before you enter a healthcare providers office. If you are not able to wear a face mask (for example, because it causes trouble breathing), then people who live with you should not stay in the same room with you, or they should wear a face mask if they enter your room. Cover your coughs and sneezes Cover your mouth and nose with a tissue when you cough or sneeze. Throw used tissues in a lined trash can. Immediately wash your hands with soap and water for at least 20 seconds or, if soap and water are not available, clean your hands with an alcohol-based hand heating operators engineer that contains at least 60% alcohol. Clean your hands often Wash your hands often with soap and water for at least 20 seconds, especially after blowing your nose, coughing, or sneezing; going to the bathroom; and before eating or preparing food. If soap and water are not readily available, use an alcohol-based hand heating operators engineer with at least 60% alcohol, covering all surfaces of your hands and rubbing them together until they feel dry. Soap and water are the best option if hands are visibly dirty. Avoid touching your eyes, nose, and mouth with unwashed hands. Avoid sharing personal household items You should not share dishes, drinking glasses, cups, eating utensils, towels, or bedding with other people or pets in your home. After using these items, they should be washed thoroughly with soap and water. Clean all high-touch surfaces everyday High touch surfaces include counters, tabletops, doorknobs, bathroom fixtures, toilets, phones, keyboards, tablets, and bedside tables. Also, clean any surfaces that may have blood, stool, or body fluids on them. Use a household cleaning spray or wipe, according to the label instructions. Labels contain instructions for safe and effective use of the cleaning product including precautions you should take when applying the product, such as wearing gloves and making sure you have good ventilation during use of the product. Monitor your symptoms Seek prompt medical attention if your illness is worsening (e.g., difficulty breathing).Beforeseeking care, call your healthcare provider and tell them that you have, or are being evaluated for, COVID-19. Put on a face mask before you enter the facility. These steps will help the healthcare providers office to keep other people in the office or waiting room from getting infected or exposed. Ask your healthcare provider to call the local or state health department. Persons who are placed under active monitoring or facilitated self- monitoring should follow instructions provided by their local health department or occupational health professionals, as appropriate. When working with your local health department check their available hours. If you have a medical emergency and need to call 911, notify the dispatch personnel that you have, or are being evaluated for COVID-19. If possible, put on a face mask before emergency medical services arrive. Discontinuing home isolation Patients with confirmed COVID-19 should remain under home isolation precautions until the risk of secondary transmission to others is thought to be low. The d ecision to discontinue home isolation precautions should be made on a [id number]-[id number] basis, in consultation with healthcare providers and state and [facility] health departments. Coronavirus disease 2019 (COVID-19) is a virus that causes a respiratory illness. It is caused by a coronavirus called 2019 novel coronavirus (2019- nCoV). There are many types of coronavirus. Coronaviruses are a very common cause of bronchitis. They may sometimes cause lung infection(pneumonia). Symptoms can range from mild to severe respiratory illness. These viruses are also foundin some animals. COVID-19 was first found in people in [place], in late 2019. In 2020, several cases of COVID-19 have been confirmed in the [place] Public health officials are working to find the source. How the virus spreads is not yet fully known. It may be spread through droplets of fluid that a person coughs or sneezes into the air. It may be spread if you touch a surface with virus on it, such as a handle or object, and then touch your mouth. What are the symptoms of COVID-19? Some people have no symptoms or mild symptoms. Symptoms may appear 2 to 14 days after contact with the virus. Symptoms can include: Fever Coughing Trouble breathing What are possible complications from COVID-19? In many cases, this virus can cause infection (pneumonia) in both lungs. In some cases, this can cause . How is COVID-19 diagnosed? Your healthcare provider will ask about your symptoms. He or she will also ask about your recent travel and contact with sick people. Testing for the virus is only done through the CDC. If yourhealthcare provider thinks you may have COVID- 19, he or she will work with your local health department and the CDC on testing. Follow all instructions from your healthcare provider. COVID-19 is diagnosed by: Nasal and throat swab. A cotton-tipped swab is wiped inside your nose or throat. This is done to check for viruses in your nasal mucus. Sputum culture. A small sample of mucus coughed from your lungs (sputum) is collected if you have a cough. It is checked for the virus. How is COVID-19 treated? There is currently no medicine to treat the virus. Treatment is done to help your body while it fights the virus. This is known as supportive care. Supportive care may include: Pain medicine. These include acetaminophen and ibuprofen. They are used to help ease pain and reduce fever. Bed rest. This helps your body fight the illness. For severe illness, you may need to stay in the hospital. Care during severe illness may include: IV (intravenous) fluids.These are given through a vein to help keep your body hydrated. Oxygen. Supplemental oxygen or ventilation with a breathing machine (ventilator) may be given. This is done to keep enough oxygen in your body. Are you at risk for COVID-19? If youve been to a place where people have been sick with this virus, you are at risk for infection. You are at risk if you: Recently traveled to an affected area Had contact with a sick person who recently traveled to this area Had contact with a person who was diagnosed with COVID-19 How can COVID-19 be prevented? There is no vaccine yet. The best prevention is to not have contact with the virus. The CDC advises that people should not travel to areas where there are COVID-19 outbreaks right now for any reason that is not urgent. To help prevent spreading the infection, wash your hands often, or use an alcohol-basedhand heating operators engineer. If you are in an area with COVID-19: Wash your hands often. Or use an alcohol-based hand heating operators engineer often. Only touch your eyes, nose, or mouth with clean hands. Dont have contact with people who are sick. Follow local instructions about being in public. For example, you may be told to not use public transport for a period of time. Stay away from markets that have live or animals. Wash your hands after touching any animals. Don't touch animals that may be sick. Dont share eating or drinking tools with sick people. Dont kiss someone who is sick. Clean surfaces often with disinfectant. If you were in an area with COVID-19 in the last 14 days: Call your healthcare provider. He or she can talk with local health staff to see what action may be needed. Follow all instructions from your provider. Take your temperature every morning and evening for at least 14 days. This is to check for fever. Keep a record of the readings. Keep watch for symptoms of the virus. Tell your provider right away if you have symptoms. If you were in an area with COVID-19 and have a fever or other symptoms: Dont panic. Keep in mind that other illnesses can cause similar symptoms. Stay away from work, school, and public places. Limit physical contact with family members. Don't kiss anyone or share eating or drinking utensils. Clean surfaces you touch with disinfectant. This is to help prevent the virus from spreading. Call your healthcare provider. Explain that you have been exposed to COVID-19 and have symptoms. Do this before going to any hospital. Wait for instructions. Keep in mind that healthcare staff may wear protective equipment such as masks, gowns, gloves, and eye protection. You may be put in a separate room. This is to prevent the possible virus from spreading. Tell the healthcare staff about recent travel. This includes local travel on public transport. Staff may need to find other people you have been in contact with. Follow all instructions the healthcare staff give you. If you have been diagnosed with COVID-19 Follow all instructions from your healthcare provider. Dont leave your home, except to get medical care. Call your healthcare providers office before going. They can prepare and give you instructions. This will help prevent the virus from spreading. Dont go to work, school, or public areas. Dont use public transport or taxis. Stay away from other people in your home. Have them wear face masks around you. Dont share household items or food. Wear a face mask if you can. This includes at home or in a medical facility. Cover your face with a tissue when you cough or sneeze. Throw the tissue away. Wash your hands. Wash your hands often. Caregivers should: Follow all instructions from healthcare staff. Wear a face mask and protective clothing as advised. Wash hands often. Keep track of the sick persons symptoms. Clean surfaces, fabrics, and laundry thoroughly. Keep other people away from the sick person. When to call your healthcare provider Call your healthcare provider: If youve recently traveled and have symptoms If you have been diagnosed with COVID-19 and your symptoms are worse To learn more To find out more about COVID-19, visit the CDC website at www.cdc.gov/coronavirus/2019-ncov/index.html. [employer]. [address] [place] [address], [place] [id number]. All rights reserved. This information is not intended as a substitute for professional medical care. Always follow your healthcare professional's instructions. This information has been adapted from [employer] Pending Studies at Discharge: No Stand-Alone Forms: [employer], Smoking Cessation Skilled Items Patient informed of condition?: Yes DNR: Yes Discharge Level of Care: Other Communicable Disease: No Discharge Prognosis: Stable Lines: None Urinary Catheter: No Medications and DC Order Prescriptions: New azithromycin 250 mg Tablet 250 mg PO QAM 3 Days Qty: 3 RF: 0 prednisone 20 mg Tablet 40 mg PO DAILY 4 Days Qty: 8 RF: 0 thiamine HCl (vitamin B1) [Vitamin B-1] 100 mg Tablet 100 mg PO QAM 30 Days Qty: 30 RF: 0 olanzapine 2.5 mg Tablet 2.5 mg PO HS 30 Days Qty: 30 RF: 0 olanzapine 2.5 mg Tablet 1.25 mg PO QAM 30 Days Qty: 15 RF: 0 folic acid 1 mg Tablet 1 mg PO QAM 30 Days Qty: 30 RF: 0 Continued montelukast [Singulair] 10 mg tablet 10 mg PO HS Qty: 30 RF: 2 ascorbic acid (vitamin C) [Vitamin C] 1,000 mg Tablet 1,000 mg PO QAM RF: 0 cetirizine [Zyrtec] 10 mg Tablet 10 mg PO HS RF: 0 Linzess 145 mcg capsule 145 mcg PO DAILYBB RF: 0 cyanocobalamin (vitamin B-12) 100 mcg Tablet 100 mcg PO QAM RF: 0 venlafaxine 150 mg capsule,extended release 24hr 150 mg PO QAM RF: 0 calcium carbonate [Calcium 500] 500 mg calcium (1,250 mg) Tablet 500 mg PO QAM RF: 0 polyethylene glycol 3350 [Miralax] 17 gram/dose Powder 17 g PO DAILY PRN (Reason: Constipation) RF: 0 albuterol sulfate 90 mcg/actuation Hfa Aerosol Inhaler 2 puff INHALATION Q4H PRN (Reason: Shortness Of Breath) RF: 0 fluticasone propionate [Flonase Allergy Relief] 50 mcg/actuation Lewis,Suspension 2 spray INTRANASAL HS RF: 0 rosuvastatin [Crestor] 20 mg Tablet 20 mg PO HS RF: 0 sennosides 17.2 mg Tablet 17.2 mg PO DAILY PRN (Reason: Constipation) RF: 0 docusate sodium [Colace] 100 mg capsule 100 mg PO DAILY RF: 0 levetiracetam 750 mg tablet 750 mg PO BID RF: 0 ipratropium-albuterol 0.5 mg-3 mg(2.5 mg base)/3 mL solution for nebulization 3 ml NEB Q6H PRN (Reason: Shortness Of Breath) RF: 0 acetaminophen [Tylenol] 325 mg Tablet 325 - 650 mg PO QID PRN (Reason: Fever Or Pain) RF: 0 gabapentin 100 mg capsule 100 mg PO TID RF: 0 venlafaxine 37.5 mg capsule,extended release 24hr 37.5 mg PO DAILY RF: 0 lorazepam 0.5 mg tablet 0.25 mg PO BID PRN (Reason: Anxiety) RF: 0 mirtazapine 30 mg tablet 30 mg PO HS RF: 0 azelastine 137 mcg (0.1 %) Aerosol,Lewis 1 spray INTRANASAL BID RF: 0 aspirin 81 mg Tablet,Delayed Release (Dr/Ec) 81 mg PO DAILY RF: 0 propranolol 20 mg Tablet 20 mg PO BID RF: 0 pantoprazole [Protonix] 40 mg tablet,delayed release (DR/EC) 40 mg PO BID RF: 0 fluticasone propion-salmeterol [Advair Diskus] 500-50 mcg/dose Blister With Device 1 inh INHALATION BID RF: 0 Spiriva with HandiHaler 18 mcg Capsule, W/Inhalation Device 1 cap INHALATION HS RF: 0 Discontinued amoxicillin-pot clavulanate [Augmentin] 875-125 mg tablet 1 tab PO BID Qty: 20 RF: 0 Discharge Orders: Discharge Order (Routine); Ordered 08/20/20 Ordered By: Petra Box Admission Data Admit Date/Time: 08/14/20 11:11 Attending Provider: Petra Box Admit Provider: John Pennington Primary Care Provider: Kenzie Feliciano Other Providers: John Pennington ; Vipul Villatoro ; Giovanna Bonilla ; Isa Boyd Other Interventions: Discharge Summary Assessment (RN) Last Done: 08/20/20 14:45 PSY Interdisciplinary Discharge Planning Last Done: 08/20/20 14:45
[2020-08-21] MEDS ORDERED: OLANZAPINE 2.5 MG TAB PO SCH (09:00)
== END 2020-08-20 15:01 | DRG 177 ==
LOC: ED 08:28 → SUATTDRO 11:11 → 2S 11:11

== ENCOUNTER 2020-11-28 11:58 | Inpatient (IN) ==
[2020-11-28] MEDS ORDERED: LORazepam 0.5 MG/1 ML VIAL IV STA (12:06)
[2020-11-28 12:18] LABS: Basophils # (auto) 0.01 K/uL (0-0.2); Basophils % (auto) 0.2 %; Eosinophils % (auto) 1.6 %; Hematocrit (blood only) 40.1 % (37-47); Hemoglobin 12.8 g/dL (12.0-16.0); Immature Granulocytes # (auto) 0.01 K/uL (0.00-0.02); Immature Granulocytes % (auto) 0.2 %; Lymphocytes # (auto) 1.31 K/uL (1.2-3.4); Mean Corpuscular Hgb Conc 31.9 g/dL (32-36); Mean Corpuscular Volume 93.9 fL (80-100); Mean Platelet Volume 8.8 fL (7.4-10.4); Monocytes # (auto) 0.49 K/uL (0.11-0.59); Monocytes % (auto) 7.9 %; Neutrophils # (auto) 4.31 K/uL (1.4-6.5); Neutrophils % (auto) 69.1 %; Platelet Count 291 K/uL (130-400); RDW Coefficient of Variation 13.3 % (11.5-14.5); RDW Standard Deviation 45.3 fL (36.4-46.3); Red Blood Count 4.27 M/uL (4.2-5.4); White Blood Count 6.23 K/uL (4.8-10.8)
--- NOTE | 2020-11-28 12:18 | Electrocardiogram Report ---
Test Reason : Blood Pressure : / mmHG Vent. Rate : 100 BPM Atrial Rate : 100 BPM P-R Int : 182 ms QRS Dur : 086 ms QT Int : 352 ms P-R-T Axes : 075 065 071 degrees QTc Int : 454 ms Normal sinus rhythm Normal ECG When compared with ECG of 22-OCT-2020 15:11, No significant change was found Confirmed by Caesar Aguilera ([id number]) on 11/28/2020 12:18:19 PM Referred By: Confirmed By:Caesar Aguilera
--- NOTE | 2020-11-28 12:25 | Communication Note ---
Date of Service: November 28, 2020 Patient seen and examined in the emergency room. Full consult to follow. Patient referred after telephone conversations with myself last night and this m orning. She carries a history of past multiple syncopal events with event monitor placed demonstrating several extended pauses consistent with sick sinus syndrome. Propanolol was stopped, low-dose being used for tremor Patient presents today with anticipation of needing pacemaker this admission. Procedure tentatively planned for Monday will follow on hospitalist as course progresses Preliminary report of Zio patch event monitor placed on chart
--- NOTE | 2020-11-28 12:28 | History & Physical Report ---
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 Sick sinus syndrome Zio patch monitoring with evidence of significant pauses greater than 10 seconds that correlated with symptoms of lightheadedness and near syncope/syncope Directed to come to hospital by Dr. Farley Discontinued propranolol Plan for pacemaker placement tentatively on Monday External pacers in place Atropine PRN Cardiology consulted Monitor in PCU Hypertension No history of HTN - was previously on propranolol for essential tremor - has since been discontinued BP 199/102 Given amlodipine 5mg PO, PRN Vasotec 0.625 mg Q6H PRN for SBP >180 or DBP >100 Hypokalemia K 3.3 - replaced Mag within normal limits Monitor bmp COPD Continue Advair, Spirivia Encourage incentive spirometry Hold Azithromycin for now Supplemental O2 PRN Squamous cell carcinoma of lung Follows [facility] [place] [facility] No known recurrence Seizure disorder Continue Keppra Depression Insomnia Continue Venlafaxine, Mirtazapine HS for depression and mirtazapine at HS for insomnia Anxiety Continue Buspar and lorazepam prn Hyperlipidemia Continue statin DVT Ppx: SQ heparin Code status: CONDITIONAL CODE. YES to CPR and shock. NO to intubation or mech ventilation PCP: Braden Dispo: Admitted to PCU. Plan to return home once medically stable. Patient seen in collaboration with Dr. Arrington. Please see addendum. 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 History of recent syncopal episodes over the past 4 weeks. Was placed on zio patch monitor by PCP Dr. Feliciano for the past 13 days which revealed significant pauses greater than 10 seconds that correlated with symptoms of lightheadedness and near syncope/syncope. Also endorses intermittent nausea and dyspnea on exertion. Discussed Zio patch findings over the phone with machine marker Dr. Farley last evening the patient initially refused coming to hospital for treatment. After encouragement from family this morning, patient was agreeable to come in for further evaluation. Propranolol medication has been discontinued. Plan for pacemaker placement tentatively on Monday. External pacer is in place. Currently feeling well despite some nausea. Denies any fever, chills, headache, lightheadedness, chest pain, shortness of breath, vomiting, abdominal pain, dysuria, diarrhea constipation. Allergies Allergy/AdvReac Type Severity Reaction Status Date / Time pollen extracts Allergy Intermediate CONGESTION Verified 11/28/20 13:05 Home Medications Medication Instructions Recorded Confirmed Type Spiriva with HandiHaler 1 cap INHALATION BID 11/28/18 11/28/20 History fluticasone propion-salmeterol 1 inh INHALATION BID 11/28/18 11/28/20 History [Advair Diskus] pantoprazole [Protonix] 40 mg PO DAILYBB 11/28/18 11/28/20 History Linzess 145 mcg PO DAILYBB 01/11/19 11/28/20 History cetirizine [Zyrtec] 10 mg PO HS PRN 01/11/19 11/28/20 History ascorbic acid (vitamin C) [Vitamin 1,000 mg PO QAM 01/31/19 11/28/20 History C] albuterol sulfate 2 puff INHALATION Q4H PRN 11/08/19 11/28/20 History calcium carbonate [Calcium 500] 500 mg PO QAM 11/08/19 11/28/20 History cyanocobalamin (vitamin B-12) 100 mcg PO QAM 11/08/19 11/28/20 History fluticasone propionate [Flonase 2 spray INTRANASAL HS 11/08/19 11/28/20 History Allergy Relief] polyethylene glycol 3350 [Miralax] 17 g PO DAILY PRN 11/08/19 11/28/20 History rosuvastatin [Crestor] 20 mg PO HS 11/08/19 11/28/20 History sennosides 17.2 mg PO DAILY PRN 11/08/19 11/28/20 History venlafaxine 150 mg PO QAM 11/08/19 11/28/20 History levetiracetam 750 mg PO BID 11/17/19 11/28/20 History docusate sodium 100 mg capsule 100 mg PO DAILY 03/30/20 11/28/20 History acetaminophen [Tylenol] 325 - 650 mg PO QID PRN 06/11/20 11/28/20 History lorazepam 0.25 mg PO BID PRN 08/14/20 11/28/20 History montelukast 10 mg tablet 10 mg PO HS #30 tab 11/10/20 11/28/20 Rx azithromycin 250 mg PO 3XWK 11/28/20 11/28/20 History gabapentin 100 mg PO TID 11/28/20 11/28/20 History mirtazapine 30 mg PO HS 11/28/20 11/28/20 History olanzapine 1.25 mg PO BID 11/28/20 11/28/20 History venlafaxine 37.5 mg PO QAM 11/28/20 11/28/20 History Past Med/Surg History Medical History Anxiety Asthma Carpal tunnel syndrome of right wrist Chronic constipation Distal radius fracture, right Encephalitis due to human herpes simplex virus (HSV) GERD (gastroesophageal reflux disease) controlled Hiatal hernia History of colon polyps On home oxygen therapy 2L O2 via NC HS and prn strenuous activity Osteoarthritis Osteoarthritis of finger of right hand Pneumonia due to COVID-19 virus Primary basaloid squamous cell carcinoma of lung Scoliosis Seizure disorder Sinusitis Tremor Surgical History History of bilateral cataract extraction History of detached retina repair right eye History of dilatation and curettage History of left oophorectomy History of Mohs micrographic surgery for skin cancer History of open reduction and internal fixation (ORIF) procedure right hip History of repair of left rotator cuff History of repair of right rotator cuff History of thumb surgery left History of tonsillectomy and adenoidectomy History of wisdom tooth extraction Hx of colonoscopy Family History Mother , age 80 ` s Alzheimer disease Colon cancer Father , age 80` s Alzheimer disease Sister Breast cancer had chemotherapy and radiation therapy at age45 Sister No problems noted. Sister , age 77 Coronary heart disease Alzheimer disease Aunt Breast cancer Social History Smoking Status: Current every day smoker Tobacco Type: Cigarettes Age Started Using Tobacco: 17; packs per day: 1; Years Smoked: 50; Cigarettes Per Day: 1-5/day; Second Hand Exposure: No; Tobacco Cessation Education Requested by Patient: No Hx Alcohol Use: Yes Alcohol type: wine Alcohol type Comment: 1 glass of wine a day Hx Substance Use: No Preferred Language: Kiswahili Communication Ability: Effective Vehicle Service Attendant Required: No Beliefs That Will Affect Care: None marital status: Current Living Situation: Alone Current Living Situation Comment: [place] current occupational status: retired 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 Physical Exam Physical Exam: General Appearance: WD/WN, vitals as above, NAD, sitting up in bed, pleasant, conversing easily Head: normocephalic, atraumatic Eyes: normal inspection, PERRL, conjunctivae normal, anicteric sclerae ENT: external ear and nose normal, oropharynx normal Neck: normal visual inspection, trachea midline, no thyromegaly Respiratory: normal respiratory effort, coarse lung sounds with scattered rhonchi. No wheezing or rales. No accessory muscle use Cardiovascular: regular rate, rhythm, no murmur appreciated, normal peripheral pulses, trace BLE edema. Vessels: no JVD Chest: normal inspection of chest Abdomen/GI: normal bowel sounds, soft, nontender, no hepatosplenomegaly Extremities/Musculoskeletal: no cyanosis or clubbing, extremities motor strength 5/5 Neurologic: PERRL, EOMI, accommodation nl, no face palsy, no dysarthria, CN's II-XI intact bilaterally and moves all extremities Psychiatric: A+Ox3, euthymic affect Skin: no rashes, normal color, warm/dry Results & Data Results & Data ([facility]) Vital Signs (Past 12 Hours) Vital Signs Temp Pulse Resp BP Pulse Ox 11/28/20 12:09 36.6 C 102 H 20 209/103 H 100 Laboratory Results Short CBC 11/28/20 Range/Units 12:07 WBC 6.23 (4.8-10.8) K/uL Hgb 12.8 (12.0-16.0) g/dL Hct 40.1 (37-47) % Plt Count 291 (130-400) K/uL BMP 11/28/20 12:07 Sodium 144 Potassium 3.3 L Chloride 106 Carbon Dioxide 35 H BUN 14 Creatinine 0.91 Glucose 96 Calcium 8.7 Cardiac Enzymes 11/28/20 Range/Units 12:07 Troponin I < 0.015 (0-0.045) ng/ml Liver Function 11/28/20 Range/Units 12:07 Total Bilirubin 0.5 (0.2-1) mg/dl AST 25 (15-37) U/L ALT 26 (12-78) U/L Alkaline Phosphatase 168 H (45-117) U/L Albumin 3.5 (3.4-5.0) gm/dl Diagnostic Findings CXR: IMPRESSION: 1. No acute process. 2. Emphysema with chronic interstitial coarsening. Supervising Physician Co-Signing Physician Notes Patient is a 75-year-old female with history of COPD, chronic oxygen dependency, tobacco use disorder, seizure disorder and other medical problems presents to ED and recommendations by her machine marker for abnormal findings on cardiac event monitor. Significant pauses noted on monitoring tech. Patient admits to have recurrent syncopal events resulting in fall and head trauma. She also states having dizziness intermittently. Patient reports having nausea but no vomiting. " My heart rate runs fast when I am upset". Please review HPI for complete details of presentation. On exam patient is thin, frail, chronically appearing, no apparent distress, normocephalic atraumatic, lungs--decreased breath sounds, scattered rhonchi, abdomen soft, nontender, normal bowel sounds, S1-S2, no murmur, trace pedal edema, alert, awake, oriented, grossly no focal neurological deficits. Patient is admitted for management of recurrent syncopal episodes, sinus pauses likely secondary to sick sinus syndrome. Patient will be planned for pacemaker placement. Her metoprolol was discontinued. Agree with monitoring in PCU. Cardiology consulted. Pacer pads at bedside, atropine as needed. Avoid AV deacon blocking agents. Hypokalemia noted on labs. Will replace electrolytes as needed. Magnesium, thyroid function test within normal limits. Also noted to have hypertensive urgency. Will start on amlodipine. Respiratory status seems to be at baseline. Continue supplemental oxygen as needed. Continue home inhalers. I personally reviewed the record. Patient is interviewed and examined at bedside. Patient's care is coordinated with Birgit silva PA-C. Please refer to the documentation above for details of patient's presentation and for discussion of other issues. (1) Syncope Syncope type: unspecified Qualified Code(s): R55 - Syncope and collapse
[2020-11-28 12:34] LABS: Partial Thromboplastin Ratio 0.9; Partial Thromboplastin Time 23.3 Seconds (21.0-31.0); Prothrombin Time 10.2 Seconds (9.0-12.0)
[2020-11-28 12:44] LABS: Alanine Aminotransferase 26 U/L (12-78); Albumin Level 3.5 gm/dl (3.4-5.0); Aspartate Aminotransferase 25 U/L (15-37); BUN Creatinine Ratio 15.6 (10-20); Blood Urea Nitrogen 14 mg/dl (7-18); Calcium 8.7 mg/dl (8.5-10.1); Carbon Dioxide 35 mmol/L (21-32); Chloride 106 mmol/L (98-107); Creatinine Clr Calc Pharmacy 39.7 ml/min; Est GFR (African American) 71.5; Est GFR (Non-African American) 61.7; Glucose 96 mg/dl (70-99); Potassium 3.3 mmol/L (3.5-5.1); Sodium 144 mmol/L (136-145)
[2020-11-28 12:54] LABS: Alkaline Phosphatase 168 U/L (45-117); Bilirubin,Total 0.5 mg/dl (0.2-1); Globulin 3.6 gm/dl (2.5-4.0); Total Protein 7.1 gm/dl (6.4-8.2); Troponin I < 0.015 ng/ml (0-0.045)
--- NOTE | 2020-11-28 13:00 | Emergency Department Note ---
ED Visit Note NAME: JON ECKERT AGE: 75 SEX: F : 1945 ARRIVES VIA: Ambulance INFORMANT: Patient, ED PROVIDER(S): Caesar Barone DO CHIEF COMPLAINT: Syncope HPI: The patient is a 75-year-old female who presented to the emergency department for an evaluation of abnormal heart rhythm. The patient has been having problems over the last few months with syncope. She is also been having problems with dizziness. She has been seen in our facility for similar complaints but no definite diagnosis could be found. Her primary care physician ordered a Holter monitor. The patient was found to have episodes of sinus pause on the Holter monitor. She was called by cardiology yesterday and told to come directly to the emergency department but at that time the patient was unable to come to the emergency department. She presents emergency department today for evaluation. She was met in the emergency department by her reading medical dir, Dr. Farley. He was very concerned for her welfare and recommended the patient be brought into the hospital for observation of her cardiac status but also consideration for pacemaker. The patient continues to use tobacco products. She denies having any fever or chills. She denies having any lower extremity swelling but does complain of a cough which is chronic for her because of her COPD. She denies having any recent rashes or changes to her medication regimen. ROS: See above HPI for pertinent positives & negatives. A total of 10 systems reviewed and were otherwise negative. PAST MEDICAL HISTORY: See Below PAST SURGICAL HISTORY: See Below FAMILY HISTORY: See Below SOCIAL HISTORY: See Below HOME MEDICATIONS: See Below ALLERGIES: See Below VITALS: See Below PHYSICAL EXAMINATION: GENERAL: Patient is awake alert in no acute distress patient is resting comfortably and showing no signs of anxiety EYES: The conjunctivae are clear. The pupils are round and reactive. EARS, NOSE, MOUTH AND THROAT: The nose is without any evidence of any deformity. NECK: The neck is nontender and supple. RESPIRATORY: Diminished breath sounds noted throughout. Scattered expiratory wheezing was noted in both upper lung heredia. There is no tachypnea or conversational dyspnea. CARDIOVASCULAR: Regular rate and rhythm noted there no murmurs rubs or gallops normal S1 normal S2. GASTROINTESTINAL: The abdomen is soft. Abdomen is nontender. MUSCULOSKELETAL/EXTREMITIES: There is no evidence of gross deformity full range of motion is noted in the hips and shoulders. SKIN: There is no obvious evidence of any rash. There are no petechiae, pallor or cyanosis noted. NEUROLOGIC: Patient is awake alert and oriented x3. MEDICAL DECISION MAKING: [Provider summary] Triage Nursing notes reviewed. [Prior medical records reviewed] Vital Signs: reviewed and remarkable for [no significant abnormalities] Differential diagnosis: Infection, dehydration, metabolic abnormality, hypo/hyperglycemia, electrolyte disturbance, anemia, hypoxia, cardiac sources, intracerebral event, toxicologic, neurologic, as well as other pathologies. ER treatment provided: See below Diagnostics interpreted by me: ECG: EKG was obtained in the emergency department. My interpretation is normal sinus rhythm at 100 bpm. There was no ectopy. There was no acute ST segment abnormalities noted. This was compared to a tracing from October 222020. No significant changes were noted. Cardiac Monitoring: An order was placed for continuous cardiac monitoring. The monitor shows a rate of [] with [] rhythm. Laboratory studies: [As stated above and show below.] Imaging studies: [See below] Consultation(s): I discussed this case with the on-call [facility] hospitalist group. They will evaluate the patient in the emergency department. ED COURSE: [] Procedures: [none] [PDMP:reviewed and no issues] [Critical Care:] [None] .
--- NOTE | 2020-11-28 13:20 | XRay Report ---
XR chest 1V portable HISTORY: 75 years-old Female weakness acute weakness COMPARISON: Chest radiograph and CTA chest 09/22/2020 TECHNIQUE: Portable AP view the chest FINDINGS: Cardiomediastinal and hilar silhouettes are within normal limits. No pneumothorax, pleural effusion, airspace consolidation or overt pulmonary edema. Emphysema with chronic interstitial coarsening. Dege nerative changes of the shoulders and spine. IMPRESSION: 1. No acute process. 2. Emphysema with chronic interstitial coarsening. ACT 112: Negative or not required by law. The above report was generated using voice recognition software. It may contain grammatical, syntax o r spelling errors. Electronically signed by: Marvin Lopez M.D. 11/28/2020 1:19 PM
[2020-11-28] MEDS ORDERED: amLODIPine BESYLATE 5 MG TAB PO ONE (13:30)
[2020-11-28] MEDS ORDERED: ATROPINE SULFATE 0.1 MG/ML 10ML SYR IV PRN (13:56)
[2020-11-28] MEDS ORDERED: ALBUT/IPRATROP 3MG/0.5MG NEB 3 ML VIAL NEB PRN ×2 (13:56→15:24)
[2020-11-28] MEDS ORDERED: POTASSIUM CHLORIDE PWD 20 MEQ PACK PO ONE ×2 (13:56→15:00)
[2020-11-28] MEDS ORDERED: ENALAPRILAT 0.625 MG in DEXTROSE 5% 25 ML IV PRN (13:56)
[2020-11-28] MEDS ORDERED: POLYETHYLENE (MIRALAX) 17 GM PACK PO PRN ×2 (13:56→15:23)
--- NOTE | 2020-11-28 14:04 | Emergency Department Note ---
Impression & Plan Syncope, Dizziness, Dysrhythmia, cardiac ED Provider Note NAME: JON ECKERT AGE: 75 SEX: F : 1945 ARRIVES VIA: Ambulance INFORMANT: Patient, ED PROVIDER(S): Caesar Barone DO CHIEF COMPLAINT: Syncope HPI: The patient is a 75-year-old female who presented to the emergency department for an evaluation of abnormal heart rhythm. The patient has been having problems over the last few months with syncope. She is also been having problems with dizziness. She has been seen in our facility for similar complaints but no definite diagnosis could be found. Her primary care physician ordered a Holter monitor. The patient was found to have episodes of sinus pause on the Holter monitor. She was called by cardiology yesterday and told to come directly to the emergency department but at that time the patient was unable to come to the emergency department. She presents emergency department today for evaluation. She was met in the emergency department by her reading leather belt maker, Dr. Farley. He was very concerned for her welfare and recommended the patient be brought into the hospital for observation of her cardiac status but also consideration for pacemaker. The patient continues to use tobacco products. She denies having any fever or chills. She denies having any lower extremity swelling but does complain of a cough which is chronic for her because of her COPD. She denies having any recent rashes or changes to her medication regimen. ROS: See above HPI for pertinent positives & negatives. A total of 10 systems reviewed and were otherwise negative. PAST MEDICAL HISTORY: See Below PAST SURGICAL HISTORY: See Below FAMILY HISTORY: See Below SOCIAL HISTORY: See Below HOME MEDICATIONS: See Below ALLERGIES: See Below VITALS: See Below PHYSICAL EXAMINATION: GENERAL: Patient is awake alert in no acute distress patient is resting comfortably and showing no signs of anxiety EYES: The conjunctivae are clear. The pupils are round and reactive. EARS, NOSE, MOUTH AND THROAT: The nose is without any evidence of any deformity. NECK: The neck is nontender and supple. RESPIRATORY: Diminished breath sounds noted throughout. Scattered expiratory wheezing was noted in both upper lung heredia. There is no tachypnea or conversational dyspnea. CARDIOVASCULAR: Regular rate and rhythm noted there no murmurs rubs or gallops normal S1 normal S2. GASTROINTESTINAL: The abdomen is soft. Abdomen is nontender. MUSCULOSKELETAL/EXTREMITIES: There is no evidence of gross deformity full range of motion is noted in the hips and shoulders. SKIN: There is no obvious evidence of any rash. There are no petechiae, pallor or cyanosis noted. NEUROLOGIC: Patient is awake alert and oriented x3. MEDICAL DECISION MAKING: The patient is a 75-year-old female who presented to the emergency department for an evaluation of syncope and dizziness. The patient had an outpatient Holter monitor ordered. She was found to have episodes of sinus pauses on the monitor. The patient presented to the emergency department the request of her primary leather belt maker. He did recommend that she stop taking her beta-klaudia yesterday. The patient was found to be in sinus rhythm in the emergency department. The patient will require further inpatient management and then likely evaluation for pacemaker placement. The patient was agreeable with this plan. [facility] have agreed to evaluate the patient in the emergency department for further management and disposition. Triage Nursing notes reviewed. Prior medical records reviewed Vital Signs: reviewed and remarkable for elevated blood pressure and tachycardia. Differential diagnosis: Infection, dehydration, metabolic abnormality, hypo/hyperglycemia, electrolyte disturbance, anemia, hypoxia, cardiac sources, intracerebral event, toxicologic, neurologic, as well as other pathologies. ER treatment provided: See below Diagnostics interpreted by me: ECG: EKG was obtained in the emergency department. My interpretation is normal sinus rhythm at 100 bpm. There was no ectopy. There was no acute ST segment abnormalities noted. This was compared to a tracing from October 222020. No significant changes were noted. Cardiac Monitoring: An order was placed for continuous cardiac monitoring. The monitor shows a rate of 110 bpm with sinus tachycardia rhythm. Laboratory studies: As stated above and show below. Imaging studies: See below Consultation(s): I discussed this case with the on-call [facility] hospitalist group. They will evaluate the patient in the emergency department. Past Med/Surg History Medical History Anxiety Asthma Carpal tunnel syndrome of right wrist Chronic constipation Distal radius fracture, right Encephalitis due to human herpes simplex virus (HSV) GERD (gastroesophageal reflux disease) controlled Hiatal hernia History of colon polyps On home oxygen therapy 2L O2 via [place] HS and prn strenuous activity Osteoarthritis Osteoarthritis of finger of right hand Pneumonia due to COVID-19 virus Primary basaloid squamous cell carcinoma of lung Scoliosis Seizure disorder Sinusitis Tremor Surgical History History of bilateral cataract extraction History of detached retina repair right eye History of dilatation and curettage History of left oophorectomy History of Mohs micrographic surgery for skin cancer History of open reduction and internal fixation (ORIF) procedure right hip History of repair of left rotator cuff History of repair of right rotator cuff History of thumb surgery left History of tonsillectomy and adenoidectomy History of wisdom tooth extraction Hx of colonoscopy Family History Mother , age 80 ` s Alzheimer disease Colon cancer Father , age 80` s Alzheimer disease Sister Breast cancer had chemotherapy and radiation therapy at age45 Sister No problems noted. Sister , age 77 Coronary heart disease Alzheimer disease Aunt Breast cancer Social History Smoking Status: Current every day smoker Tobacco Type: Cigarettes Age Started Using Tobacco: 17; packs per day: 1; Years Smoked: 50; Cigarettes Per Day: 2; Second Hand Exposure: No; Hx Alcohol Use: Yes Alcohol type: wine Alcohol type Comment: 1 glass of wine a day Hx Substance Use: No Preferred Language: Greenlandic Communication Ability: Effective Shuttleless Loom Weaver Required: No Beliefs That Will Affect Care: Oriental Orthodox marital status: Current Living Situation: Alone Current Living Situation Comment: [facility] current occupational status: retired 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 Feels Safe at Home: Yes Assistive Devices: None Allergies Allergies Allergy/AdvReac Type Severity Reaction Status Date / Time pollen extracts Allergy Intermediate CONGESTION Verified 11/28/20 13:05 Home Meds Home Medications Medication Instructions Recorded Confirmed Spiriva with HandiHaler 1 cap INHALATION BID 11/28/18 11/28/20 fluticasone propion-salmeterol 1 inh INHALATION BID 11/28/18 11/28/20 [Advair Diskus] pantoprazole [Protonix] 40 mg PO DAILYBB 11/28/18 11/28/20 Linzess 145 mcg PO DAILYBB 01/11/19 11/28/20 cetirizine [Zyrtec] 10 mg PO HS PRN 01/11/19 11/28/20 ascorbic acid (vitamin C) [Vitamin 1,000 mg PO QAM 01/31/19 11/28/20 C] albuterol sulfate 2 puff INHALATION Q4H PRN 11/08/19 11/28/20 calcium carbonate [Calcium 500] 500 mg PO QAM 11/08/19 11/28/20 cyanocobalamin (vitamin B-12) 100 mcg PO QAM 11/08/19 11/28/20 fluticasone propionate [Flonase 2 spray INTRANASAL HS 11/08/19 11/28/20 Allergy Relief] polyethylene glycol 3350 [Miralax] 17 g PO DAILY PRN 11/08/19 11/28/20 rosuvastatin [Crestor] 20 mg PO HS 11/08/19 11/28/20 sennosides 17.2 mg PO DAILY PRN 11/08/19 11/28/20 venlafaxine 150 mg PO QAM 11/08/19 11/28/20 levetiracetam 750 mg PO BID 11/17/19 11/28/20 docusate sodium 100 mg capsule 100 mg PO DAILY 03/30/20 11/28/20 acetaminophen [Tylenol] 325 - 650 mg PO QID PRN 06/11/20 11/28/20 lorazepam 0.25 mg PO BID PRN 08/14/20 11/28/20 mirtazapine 7.5 mg PO HS 08/14/20 11/28/20 azithromycin 250 mg PO 3XWK 11/28/20 11/28/20 olanzapine 2.5 mg PO BID 11/28/20 11/28/20 venlafaxine 37.5 mg PO QAM 11/28/20 11/28/20 Previous Rx's Medication Instructions Recorded montelukast 10 mg tablet 10 mg PO HS #30 tab 11/10/20 Results & Data (ED) Vital Signs Vital Signs - 24 hr 11/28/20 12:06 11/28/20 12:09 Temperature 36.6 C Temperature Source Oral Pulse Rate 100 H 102 H Respiratory Rate 21 20 Respiratory Effort / Characteristics Non-Labored Spontaneous Respiratory Depth Normal Respiratory Pattern Regular Blood Pressure 197/99 H 209/103 H Blood Pressure Mean 131 138 Pulse Oximetry 99 100 Oxygen Delivery Method Nasal Cannula Nasal Cannula Oxygen Flow Rate 2 2 Sepsis Recent Fever Within 48 Hours No Sepsis New/Unexplained Change in Mental Status No Sepsis Action Taken by Nursing No Action Required Home Medications Current Medication List: was personally reviewed by me Laboratory Data Attestation: I reviewed the patient's lab results. Result diagrams: 11/28/20 12:07 11/28/20 12:07 Lab Results 11/28/20 11/28/20 11/28/20 Range/Units 12:07 12:07 12:07 WBC 6.23 (4.8-10.8) K/uL RBC 4.27 (4.2-5.4) M/uL Hgb 12.8 (12.0-16.0) g/dL Hct 40.1 (37-47) % MCV 93.9 (80-100) fL MCH 30.0 (25-34) pg MCHC 31.9 L (32-36) g/dL RDW Std Deviation 45.3 (36.4-46.3) fL RDW Coeff of Yamini 13.3 (11.5-14.5) % Plt Count 291 (130-400) K/uL MPV 8.8 (7.4-10.4) fL Immature Gran % (Auto) 0.2 % Neut % (Auto) 69.1 % Lymph % (Auto) 21.0 % [place] % (Auto) 7.9 % Eos % (Auto) 1.6 % Baso % (Auto) 0.2 % Neut # (Auto) 4.31 (1.4-6.5) K/uL Lymph # (Auto) 1.31 (1.2-3.4) K/uL [place] # (Auto) 0.49 (0.11-0.59) K/uL Eos # (Auto) 0.10 (0-0.5) K/uL Baso # (Auto) 0.01 (0-0.2) K/uL Immature Gran # (Auto) 0.01 (0.00-0.02) K/uL PT 10.2 (9.0-12.0) Seconds INR 1.0 (0.9-1.1) APTT 23.3 (21.0-31.0) Seconds PTT Ratio 0.9 Sodium 144 (136-145) mmol/L Potassium 3.3 L (3.5-5.1) mmol/L Chloride 106 (98-107) mmol/L Carbon Dioxide 35 H (21-32) mmol/L Anion Gap 3.0 (3-11) BUN 14 (7-18) mg/dl Creatinine 0.91 (0.6-1.2) mg/dl Est Cr Clr Drug Dosing 39.7 ml/min Est GFR ( Amer) 71.5 Est GFR (Non-Af Amer) 61.7 BUN/Creatinine Ratio 15.6 (10-20) Glucose 96 (70-99) mg/dl Calcium 8.7 (8.5-10.1) mg/dl Magnesium 2.0 (1.8-2.4) mg/dl Total Bilirubin 0.5 (0.2-1) mg/dl AST 25 (15-37) U/L ALT 26 (12-78) U/L Alkaline Phosphatase 168 H (45-117) U/L Troponin I < 0.015 (0-0.045) ng/ml Total Protein 7.1 (6.4-8.2) gm/dl Albumin 3.5 (3.4-5.0) gm/dl Globulin 3.6 (2.5-4.0) gm/dl Albumin/Globulin Ratio 1.0 (0.9-2) TSH 1.290 (0.300-4.500) uIu/ml COVID-19 Eval Order SARS-CoV-2, RNA, NAAT (NEGATIVE) 11/28/20 11/28/20 Range/Units 12:13 12:13 WBC (4.8-10.8) K/uL RBC (4.2-5.4) M/uL Hgb (12.0-16.0) g/dL Hct (37-47) % MCV (80-100) fL MCH (25-34) pg MCHC (32-36) g/dL RDW Std Deviation (36.4-46.3) fL RDW Coeff of Yamini (11.5-14.5) % Plt Count (130-400) K/uL MPV (7.4-10.4) fL Immature Gran % (Auto) % Neut % (Auto) % Lymph % (Auto) % [place] % (Auto) % Eos % (Auto) % Baso % (Auto) % Neut # (Auto) (1.4-6.5) K/uL Lymph # (Auto) (1.2-3.4) K/uL [place] # (Auto) (0.11-0.59) K/uL Eos # (Auto) (0-0.5) K/uL Baso # (Auto) (0-0.2) K/uL Immature Gran # (Auto) (0.00-0.02) K/uL PT (9.0-12.0) Seconds INR (0.9-1.1) APTT (21.0-31.0) Seconds PTT Ratio Sodium (136-145) mmol/L Potassium (3.5-5.1) mmol/L Chloride (98-107) mmol/L Carbon Dioxide (21-32) mmol/L Anion Gap (3-11) BUN (7-18) mg/dl Creatinine (0.6-1.2) mg/dl Est Cr Clr Drug Dosing ml/min Est GFR ( Amer) Est GFR (Non-Af Amer) BUN/Creatinine Ratio (10-20) Glucose (70-99) mg/dl Calcium (8.5-10.1) mg/dl Magnesium (1.8-2.4) mg/dl Total Bilirubin (0.2-1) mg/dl AST (15-37) U/L ALT (12-78) U/L Alkaline Phosphatase (45-117) U/L Troponin I (0-0.045) ng/ml Total Protein (6.4-8.2) gm/dl Albumin (3.4-5.0) gm/dl Globulin (2.5-4.0) gm/dl Albumin/Globulin Ratio (0.9-2) TSH (0.300-4.500) uIu/ml COVID-19 Eval [facility], RNA, NAAT NEGATIVE (NEGATIVE) Administered Medications Discontinued Medications Lorazepam (Ativan) 0.5 mg in 1 mls @ 1 mls/min IV NOW STA Stop: 11/28/20 12:07 Last Admin: 11/28/20 12:23 Dose: 1 mls/min Documented by: [id number] Imaging Data Radiologist's Impression: Patient: JON ECKERT Date: 11/28/20MR#: [id number]: [address] ID:[id number]: [facility]: [facility] Zip: [place], [place] [address]Grw: 75Location: EDSex: FRoom/Bed:Att Phy:Diagnosis: CARDIAC ASSESSMENTPri Phy: [facility] Date: 11/28/20Fam Phy:Interpreting Phy: Jericho LopezAdmit Phy: Ordering Phy: Caesar Barone, cc: ~ XR chest 1V portable HISTORY: 75 years-old Female weakness acute weakness COMPARISON: Chest radiograph and CTA chest 09/22/2020 TECHNIQUE: Portable AP view the chest FINDINGS: Cardiomediastinal and hilar silhouettes are within normal limits. No pneumothorax, pleural effusion, airspace consolidation or overt pulmonary edema. Emphysema with chronic interstitial coarsening. Degenerative changes of the shoulders and spine. IMPRESSION: 1. No acute process. 2. Emphysema with chronic interstitial coarsening. ACT 112: Negative or not required by law. The above report was generated using voice recognition software. It may contain grammatical, syntax or spelling errors. Electronically signed by: Marvin Lopez M.D. 11/28/2020 1:19 PM Dictated: 11/28/20 1318Transcribed: 11/28/20 1318 Discharge Plan Visit Data Chief Complaint: Cardiac Assessment ED Provider: Caesar Barone Discharge Problem: Syncope, Dizziness, Dysrhythmia, cardiac Patient Disposition: Admitted As Inpatient Condition: Good Discharge Instructions Interventions: ED Discharge Assessment Last Done: 11/28/20 13:16
[2020-11-28] MEDS: HEPARIN SOD 5,000 UNIT/0.5 ML VIAL SQ SCH ×2 (15:18→22:02)
[2020-11-28] MEDS ORDERED: ALBUTEROL HFA 8 GM INHALER INH PRN (15:23)
[2020-11-28] MEDS ORDERED: CETIRIZINE HCL 10 MG TABLET PO PRN (15:23)
[2020-11-28] MEDS ORDERED: SENNA 8.6 MG TAB PO PRN (15:37)
[2020-11-28] MEDS: ROSUVASTATIN CALCIUM 20 MG TAB PO SCH (20:25)
[2020-11-28] MEDS: FLUTICASONE PROPIONATE NA SPR 16 GM BTL NAE SCH (20:26)
[2020-11-28] MEDS: MONTELUKAST SODIUM 10 MG TABLET PO SCH (20:26)
[2020-11-28] MEDS: levETIRAcetam 250 MG TAB PO SCH (20:26)
[2020-11-28] MEDS: GABAPENTIN 100 MG CAP PO SCH (20:27)
[2020-11-28] MEDS: MIRTAZAPINE TAB 15 MG TAB PO SCH (20:27)
[2020-11-28] MEDS: OLANZAPINE 2.5 MG TAB PO SCH (20:27)
[2020-11-28] MEDS ORDERED: UMECLIDINIUM BROMIDE 62.5MCG/BLISTER 7 PUFFS/INHALER INH SCH (21:00)
[2020-11-28] MEDS ORDERED: TIOTROPIUM BROMIDE 5 PUFF/90 MCG INH INH SCH (22:35)
[2020-11-28] MEDS ORDERED: FLUTICASONE/SALMETEROL (ADVAIR) 500/50 INH 14 PUFF INH SCH (22:45)
[2020-11-29 05:03] LABS: Appearance Urine Clear (Clear); Bilirubin Urine Negative (Negative); Blood Urine Negative (Negative); Color Urine Yellow; Glucose Urine UA Negative (Negative); Ketones Urine Negative (Negative); Leukocyte Esterase Urine Negative (Negative); Nitrite Urine Negative (Negative); Protein Urine Negative (Negative); Urobilinogen Urine Negative (Negative)
[2020-11-29] MEDS: PANTOprazole 40 MG TAB PO SCH ×2 (05:58→08:08)
[2020-11-29] MEDS: HEPARIN SOD 5,000 UNIT/0.5 ML VIAL SQ SCH ×3 (05:58→20:19)
[2020-11-29 06:06] LABS: Hematocrit (blood only) 38.1 % (37-47); Hemoglobin 11.7 g/dL (12.0-16.0); Mean Corpuscular Hemoglobin 29.3 pg (25-34); Mean Corpuscular Hgb Conc 30.7 g/dL (32-36); Mean Corpuscular Volume 95.5 fL (80-100); Mean Platelet Volume 8.9 fL (7.4-10.4); Platelet Count 257 K/uL (130-400); RDW Coefficient of Variation 13.2 % (11.5-14.5); RDW Standard Deviation 46.2 fL (36.4-46.3); Red Blood Count 3.99 M/uL (4.2-5.4); White Blood Count 6.06 K/uL (4.8-10.8)
[2020-11-29 06:42] LABS: BUN Creatinine Ratio 16.2 (10-20); Calcium 8.8 mg/dl (8.5-10.1); Creatinine Clr Calc Pharmacy 48.7 ml/min; Est GFR (African American) 99.2; Est GFR (Non-African American) 85.6; Magnesium 2.1 mg/dl (1.8-2.4); Potassium 3.6 mmol/L (3.5-5.1)
[2020-11-29] MEDS: LORazepam 0.5 MG TAB PO PRN (08:02)
[2020-11-29] MEDS: VENLAFAXINE HCL XR 150 MG CAPXR PO SCH (08:08)
[2020-11-29] MEDS: levETIRAcetam 250 MG TAB PO SCH ×2 (08:09→20:15)
[2020-11-29] MEDS: CYANOCOBALAMIN (VITAMIN B-12) 100 MCG TABLET PO SCH (08:09)
[2020-11-29] MEDS: ASCORBIC ACID 500 MG TAB PO SCH (08:09)
[2020-11-29] MEDS: CALCIUM 600MG + VIT D 400 IU TAB PO SCH (08:09)
[2020-11-29] MEDS: OLANZAPINE 2.5 MG TAB PO SCH ×2 (08:09→20:15)
[2020-11-29] MEDS: GABAPENTIN 100 MG CAP PO SCH ×3 (08:09→20:14)
[2020-11-29] MEDS: DOCUSATE SODIUM 100 MG CAP PO SCH (08:10)
[2020-11-29] MEDS: VENLAFAXINE HCL XR 37.5 MG CAPXR PO SCH (08:10)
[2020-11-29] MEDS: amLODIPine BESYLATE 5 MG TAB PO SCH (08:10)
[2020-11-29] MEDS: FLUTICASONE/VILANTEROL 200/25MCG 14 PUFFS/INHALER INH SCH (08:11)
[2020-11-29] MEDS ORDERED: POTASSIUM CHLORIDE CRTAB 20 MEQ TABCR PO ONE (09:00)
[2020-11-29] MEDS: ALBUT/IPRATROP 3MG/0.5MG NEB 3 ML VIAL NEB SCH ×3 (12:15→20:02)
--- NOTE | 2020-11-29 12:46 | Electrocardiogram Report ---
Test Reason : Blood Pressure : / mmHG Vent. Rate : 089 BPM Atrial Rate : 089 BPM P-R Int : 212 ms QRS Dur : 080 ms QT Int : 368 ms P-R-T Axes : 082 073 088 degrees QTc Int : 447 ms Poor data quality, interpretation may be adversely affected Sinus rhythm with 1st degree A-V block Nonspecific ST abnormality Abnormal ECG When compared with ECG of 28-NOV-2020 12:04, NM interval has increased Confirmed by Caesar Aguilera ([id number]) on 11/29/2020 12:45:53 PM Referred By: [facility] Confirmed By:Caesar Aguilera
--- NOTE | 2020-11-29 12:57 | Cardiology Consultation ---
Date of Consultation November 29, 2020 Assessment & Plan (1) Sick sinus syndrome: Patient is a complex 75-year-old female with medical issues as well outlined including significant underlying chronic obstructive lung disease, past seizure disorder, Covid pneumonia in July 2020. Patient's had recent difficulties with syncope and near syncope with Zio patch event monitor demonstrating significant pauses to greater than 10 seconds in duration Plan: Patient will be referred for pacemaker insertion. Propanolol already held previously being used for tremor. Expect to resume post pacemaker insertion possible increase in dosing Exam today is hypertensive will give dose of amlodipine today and in a.m., record support chronic hypertension Echo ordered to assess structural heart. Past CTA neck demonstrated carotid artery disease is also be reassessed Continue treatment of underlying pulmonary disease would use nebulizers scheduled optimize pulmonary status preprocedure (2) Syncope: (3) Bronchiolitis obliterans: (4) Seizure disorder: (5) Primary basaloid squamous cell carcinoma of lung: History of Present Illness Reason for Consultation: Syncope, sick sinus syndrome/tachybradycardia Requesting Physician: Skyler Arrington MD Attending Physician: Skyler Arrington MD History of Present Illness ObservedPatient is a complex 75-year-old female with multiple medical issues as listed below. Patient is referred for hospitalization with recent symptoms of falls and syncope. Patient subsequent underwent Zio patch event monitor placement with study demonstrating for substantial pauses to greater than 10 seconds in duration. Events were associated with lightheadedness per diary record. Patient on low-dose propanolol for chronic tremor this was discontinued and patient referred for hospitalization with planned pacemaker insertion. Her underlying medical problems include 1. Chronic obstructive lung disease/bronchiolitis obliterans, O2 dependent 2. Chronic tobacco use 3. Chronic seizure disorder following HSV encephalitis 4. Chronic basaloid squamous cell carcinoma lung without overt recurrence 5. Chronic anxiety/depression 6. Chronic essential tremor on low-dose propanolol Recent history is notable for several falls with ER presentation with observed syncope or near syncope. Patient denies current fevers chills or productive cough beyond usual baseline. No bleeding difficulties. No noted seizure activity per patient. No acute weight loss or gain. Has chronic cough but no change in status. No acute neurologic complaints. No headache or visual changes. Blood pressure elevated since admission No prior history of cardiac disease rheumatic fever scarlet fever heart failure or angina pectoris. Review of records suggest carotid artery disease on past neck CTA Allergies Allergy/AdvReac Type Severity Reaction Status Date / Time pollen extracts Allergy Intermediate CONGESTION Verified 11/28/20 13:05 Home Medications Medication Instructions Recorded Confirmed Type Spiriva with HandiHaler 1 cap INHALATION BID 11/28/18 11/28/20 History fluticasone propion-salmeterol 1 inh INHALATION BID 11/28/18 11/28/20 History [Advair Diskus] pantoprazole [Protonix] 40 mg PO DAILYBB 11/28/18 11/28/20 History Linzess 145 mcg PO DAILYBB 01/11/19 11/28/20 History cetirizine [Zyrtec] 10 mg PO HS PRN 01/11/19 11/28/20 History ascorbic acid (vitamin C) [Vitamin 1,000 mg PO QAM 01/31/19 11/28/20 History C] albuterol sulfate 2 puff INHALATION Q4H PRN 11/08/19 11/28/20 History calcium carbonate [Calcium 500] 500 mg PO QAM 11/08/19 11/28/20 History cyanocobalamin (vitamin B-12) 100 mcg PO QAM 11/08/19 11/28/20 History fluticasone propionate [Flonase 2 spray INTRANASAL HS 11/08/19 11/28/20 History Allergy Relief] polyethylene glycol 3350 [Miralax] 17 g PO DAILY PRN 11/08/19 11/28/20 History rosuvastatin [Crestor] 20 mg PO HS 11/08/19 11/28/20 History sennosides 17.2 mg PO DAILY PRN 11/08/19 11/28/20 History venlafaxine 150 mg PO QAM 11/08/19 11/28/20 History levetiracetam 750 mg PO BID 11/17/19 11/28/20 History docusate sodium 100 mg capsule 100 mg PO DAILY 03/30/20 11/28/20 History acetaminophen [Tylenol] 325 - 650 mg PO QID PRN 06/11/20 11/28/20 History lorazepam 0.25 mg PO BID PRN 08/14/20 11/28/20 History montelukast 10 mg tablet 10 mg PO HS #30 tab 11/10/20 11/28/20 Rx azithromycin 250 mg PO 3XWK 11/28/20 11/28/20 History gabapentin 100 mg PO TID 11/28/20 11/28/20 History mirtazapine 30 mg PO HS 11/28/20 11/28/20 History olanzapine 1.25 mg PO BID 11/28/20 11/28/20 History venlafaxine 37.5 mg PO QAM 11/28/20 11/28/20 History Patient History Medical History Anxiety Asthma Carpal tunnel syndrome of right wrist Chronic constipation Distal radius fracture, right Encephalitis due to human herpes simplex virus (HSV) GERD (gastroesophageal reflux disease) controlled Hiatal hernia History of colon polyps On home oxygen therapy 2L O2 via [place] HS and prn strenuous activity Osteoarthritis Osteoarthritis of finger of right hand Pneumonia due to COVID-19 virus Primary basaloid squamous cell carcinoma of lung Scoliosis Seizure disorder Sinusitis Tremor Surgical History History of bilateral cataract extraction History of detached retina repair right eye History of dilatation and curettage History of left oophorectomy History of Mohs micrographic surgery for skin cancer History of open reduction and internal fixation (ORIF) procedure right hip History of repair of left rotator cuff History of repair of right rotator cuff History of thumb surgery left History of tonsillectomy and adenoidectomy History of wisdom tooth extraction Hx of colonoscopy Family History Mother , age 80 ` s Alzheimer disease Colon cancer Father , age 80` s Alzheimer disease Sister Breast cancer had chemotherapy and radiation therapy at age45 Sister No problems noted. Sister , age 77 Coronary heart disease Alzheimer disease Aunt Breast cancer Social History Smoking Status: Current every day smoker Tobacco Type: Cigarettes Age Started Using Tobacco: 17; packs per day: 1; Years Smoked: 50; Cigarettes Per Day: 1-5/day; Second Hand Exposure: No; Tobacco Cessation Education Requested by Patient: No Hx Alcohol Use: Yes Alcohol type: wine Alcohol type Comment: 1 glass of wine a day Hx Substance Use: No Preferred Language: Bulgarian Communication Ability: Effective Iron Setter Required: No Beliefs That Will Affect Care: None marital status: Current Living Situation: Alone Current Living Situation Comment: [place] current occupational status: retired 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 Feels Safe at Home: Yes Safety Concerns: Feels Safe At This Time Assistive Devices: Glasses, Oxygen - Continuous and Walker Review of Systems Review of Systems: All systems reviewed & are unremarkable except as noted in HPI & below Physical Exam Constitutional: + thin; no acute distress Eyes: PERRL, conjunctivae normal, anicteric sclerae ENMT: external ear and nose normal, oropharynx normal Neck: trachea midline, no thyromegaly Cardiovascular: Rate/Rhythm: regular rate and regular rhythm Heart Sounds: normal S1 and normal S2; no murmur Vessels: no JVD Extremities: no edema Gastrointestinal (Abdomen): normal bowel sounds, soft, nontender, no hepatosplenomegaly Musculoskeletal: no cyanosis or clubbing, extremities motor strength 5/5 Neurologic: Motor/Sensory: + tremor Results & Data ([place]) Vital Signs (Past 12 Hours) Vital Signs Temp Pulse Pulse Resp BP BP Pulse Ox 11/29/20 12:17 98 H 16 95 11/29/20 11:51 36.9 C 94 H 18 178/77 H 93 11/29/20 08:00 88 11/29/20 06:53 36.5 C 88 18 172/75 H 95 11/29/20 03:30 37.0 C 89 18 168/80 H 99 Laboratory Results Laboratory Results - last 24 hr 11/28/20 11/28/20 11/28/20 12:07 12:07 12:13 WBC RBC Hgb Hct MCV MCH MCHC RDW Std Deviation RDW Coeff of Yamini Plt Count MPV PT 10.2 INR 1.0 APTT 23.3 PTT Ratio 0.9 Sodium 144 Potassium 3.3 L Chloride 106 Carbon Dioxide 35 H Anion Gap 3.0 BUN 14 Creatinine 0.91 Est Cr Clr Drug Dosing 39.7 Est GFR ( Amer) 71.5 Est GFR (Non-Af Amer) 61.7 BUN/Creatinine Ratio 15.6 Glucose 96 Calcium 8.7 Magnesium 2.0 Total Bilirubin 0.5 AST 25 ALT 26 Alkaline Phosphatase 168 H Troponin I < 0.015 Total Protein 7.1 Albumin 3.5 Globulin 3.6 Albumin/Globulin Ratio 1.0 TSH 1.290 Urine Color Urine Appearance Urine pH Ur Specific [place] Urine Protein Urine Glucose (UA) Urine Ketones Urine Blood Urine Nitrite Urine Bilirubin Urine Urobilinogen Ur Leukocyte Esterase SARS-CoV-2, RNA, NAAT NEGATIVE 11/29/20 11/29/20 11/29/20 00:50 05:40 05:40 WBC 6.06 RBC 3.99 L Hgb 11.7 L Hct 38.1 MCV 95.5 MCH 29.3 MCHC 30.7 L RDW Std Deviation 46.2 RDW Coeff of Yamini 13.2 Plt Count 257 MPV 8.9 PT INR APTT PTT Ratio Sodium 144 Potassium 3.6 Chloride 108 H Carbon Dioxide 33 H Anion Gap 3.0 BUN 11 Creatinine 0.68 Est Cr Clr Drug Dosing 48.7 Est GFR ( Amer) 99.2 Est GFR (Non-Af Amer) 85.6 BUN/Creatinine Ratio 16.2 Glucose 91 Calcium 8.8 Magnesium 2.1 Total Bilirubin AST ALT Alkaline Phosphatase Troponin I Total Protein Albumin Globulin Albumin/Globulin Ratio TSH Urine Color Yellow Urine Appearance Clear Urine pH 7.0 Ur Specific [place] 1.010 Urine Protein Negative Urine Glucose (UA) Negative Urine Ketones Negative Urine Blood Negative Urine Nitrite Negative Urine Bilirubin Negative Urine Urobilinogen Negative Ur Leukocyte Esterase Negative SARS-CoV-2, RNA, NAAT Medications Administered Current Medications Acetaminophen (Acetaminophen 325 Mg Tab) 650 mg PO Q4H PRN PRN Reason: Pain or Fever Stop: 12/28/20 13:55 Albuterol (Albuterol Hfa 8 Gm Inhaler) 2 puffs INH Q4H PRN PRN Reason: Shortness Of Breath Stop: 12/28/20 15:22 Albuterol (Albut/Ipratrop 3mg/0.5mg Neb 3 Ml Vial) 3 ml NEB QIDR [facility] Stop: 12/29/20 11:59 Last Admin: 11/29/20 12:15 Dose: 3 ml Documented by: Amlodipine Besylate (Amlodipine Besylate 5 Mg Tab) 5 mg PO QAM [facility] Stop: 12/29/20 08:59 Last Admin: 11/29/20 08:10 Dose: 5 mg Documented by: Ascorbic Acid (Ascorbic Acid 500 Mg Tab) 1,000 mg [facility] Stop: 12/29/20 08:59 Last Admin: 11/29/20 08:09 Dose: 1,000 mg Documented by: Atropine Sulfate (Atropine Sulfate 0.1 Mg/Ml 10ml Syr) 0.5 mg IV PRN PRN PRN Reason: Bradycardia, HR less than 40 Stop: 12/28/20 13:55 Cetirizine HCl (Cetirizine Hcl 10 Mg Tablet) 10 mg PO HS PRN PRN Reason: Allergy Symptoms Stop: 12/28/20 15:22 Cyanocobalamin (Cyanocobalamin (Vitamin B-12) 100 Mcg Tablet) 100 mcg PO QAM [facility] Stop: 12/29/20 08:59 Last Admin: 11/29/20 08:09 Dose: 100 mcg Documented by: Docusate Sodium (Docusate Sodium 100 Mg Cap) 100 mg PO DAILY [facility] Stop: 12/29/20 08:59 Last Admin: 11/29/20 08:10 Dose: 100 mg Documented by: Fluticasone Propionate (Fluticasone Propionate Na Spr 16 Gm Btl) 2 sprays KELLY HS [facility] Stop: 12/28/20 20:59 Last Admin: 11/28/20 20:26 Dose: 2 sprays Documented by: Fluticasone/Vilanterol (Fluticasone/Vilanterol 200/25mcg 14 Puffs/Inhaler) 1 puffs INH DAILY [facility] Stop: 12/29/20 08:59 Last Admin: 11/29/20 08:11 Dose: 1 puffs Documented by: Gabapentin (Gabapentin 100 Mg Cap) 100 mg PO TID [facility] Stop: 12/28/20 20:59 Last Admin: 11/29/20 08:09 Dose: 100 mg Documented by: Heparin Sodium (Porcine) (Heparin Sod 5,000 Unit/0.5 Ml Vial) 5,000 units SQ Q8 [facility] Stop: 12/28/20 13:59 Last Admin: 11/29/20 05:58 Dose: Not Given Documented by: Enalaprilat 0.625 mg/ Dextrose 25.5 mls @ 100 mls/hr IV Q6H PRN PRN Reason: Hypertension Stop: 11/30/20 13:55 Last Infusion: 11/28/20 18:39 Dose: Infused Documented by: Levetiracetam (Levetiracetam 250 Mg Tab) 750 mg PO BID [facility] Stop: 12/28/20 20:59 Last Admin: 11/29/20 08:09 Dose: 750 mg Documented by: Lorazepam (Lorazepam 0.5 Mg Tab) 0.25 mg PO BID PRN PRN Reason: Anxiety Stop: 12/28/20 15:22 Last Admin: 11/29/20 08:02 Dose: 0.25 mg Documented by: Mirtazapine (Mirtazapine Tab 15 Mg Tab) 30 mg PO [facility] Stop: 12/28/20 20:59 Last Admin: 11/28/20 20:27 Dose: 30 mg Documented by: Montelukast Sodium (Montelukast Sodium 10 Mg Tablet) 10 mg PO [facility] Stop: 12/28/20 20:59 Last Admin: 11/28/20 20:26 Dose: 10 mg Documented by: Multivitamins/Minerals (Calcium 600mg + Vit D 400 Iu Tab) 1 tab PO [facility] Stop: 12/29/20 08:59 Last Admin: 11/29/20 08:09 Dose: 1 tab Documented by: Olanzapine (Olanzapine 2.5 Mg Tab) 1.25 mg PO BID [facility] Stop: 12/28/20 20:59 Last Admin: 11/29/20 08:09 Dose: 1.25 mg Documented by: Pantoprazole Sodium (Pantoprazole 40 Mg Tab) [facility] Stop: 12/29/20 06:29 Last Admin: 11/29/20 08:08 Dose: 40 mg Documented by: Polyethylene Glycol (Polyethylene (Miralax) 17 Gm Pack) 17 gm PO DAILY PRN PRN Reason: Constipation Stop: 12/28/20 13:55 Polyethylene Glycol (Polyethylene (Miralax) 17 Gm Pack) 17 gm PO DAILY PRN PRN Reason: Constipation Stop: 12/28/20 15:22 Rosuvastatin Calcium (Rosuvastatin Calcium 20 Mg Tab) 20 mg PO [facility] Stop: 12/28/20 20:59 Last Admin: 11/28/20 20:25 Dose: 20 mg Documented by: Sennosides (Senna 8.6 Mg Tab) 17.2 mg PO DAILY PRN PRN Reason: Constipation Stop: 12/28/20 15:36 Umeclidinium [place] (Umeclidinium [place] 62.5mcg/Blister 7 Puffs/Inhaler) 1 puffs INH [facility] Stop: 12/28/20 20:59 Last Admin: 11/28/20 20:33 Dose: 1 puffs Documented by: Venlafaxine HCl (Venlafaxine Hcl Xr 37.5 Mg Capxr) 37.5 mg PO QAM [facility] Stop: 12/29/20 08:59 Last Admin: 11/29/20 08:10 Dose: 37.5 mg Documented by: Venlafaxine HCl (Venlafaxine Hcl Xr 150 Mg Capxr) 150 mg PO QAM [facility] Stop: 12/29/20 08:59 Last Admin: 11/29/20 08:08 Dose: 150 mg Documented by: (1) Syncope Syncope type: unspecified Qualified Code(s): R55 - Syncope and collapse
[2020-11-29] MEDS ORDERED: amLODIPine BESYLATE 5 MG TAB PO SCH (13:45)
--- NOTE | 2020-11-29 14:40 | Hospitalist Progress Note ---
Date of Service November 29, 2020 Assessment & Plan (1) Syncope: (2) Sick sinus syndrome: Patient is a 75 yr female with H/O Squamous cell basaloid carcinoma of the lingula, COPD on 2 L of O2 with exertion and at at bedtime, bronchiolitis obliterans, tobacco abuse, complex partial seizures, depression with anxiety, hyperlipidemia, chronic constipation and other medical problems listed below who presents after abnormal findings from Zio patch cardiac monitoring. Sick sinus syndrome Zio patch showed significant pauses Discontinued propranolol Avoid AV deacon blocking agents Atropine as needed Pacer pads at bedside Plan for pacemaker placement Echo, Carotid droppler Ordered Appreciate cardiology input N.p.o. after midnight Hypertension Continue Amlodipine Monitor Hypokalemia Replace electrolytes as needed Monitor COPD Continue Nebs Hold Azithromycin for now Supplemental oxygen as needed Squamous cell carcinoma of lung Follows [facility] [place] Pulmonology Seizure disorder Continue Keppra Mood Disorder Insomnia Continue home meds Hyperlipidemia Continue statin DVT Px: Heparin SQ Code status: Conditional Code Admission and Anticipated Discharge Date Admission Date: November 28, 2020 Subjective Patient is seen and examined at bedside Reports chronic cough Denies chest pain, dyspnea, dizziness, nausea, abd pain " I think I need Nebs" Offers no other complaints Review of Systems Review of Systems: All systems reviewed & are unremarkable except as noted in HPI & below Physical Exam Physical Exam: Physical Exam: Vitals signs as noted above General Appearance:Thin, Frail, no apparent distress Head: normocephalic, Atraumatic Eyes: normal inspection, EOMI Neck: supple, Trachea midline Respiratory/Chest: Decreased breath sounds, B/L Wheezing/Rhonchi Cardiovascular: S1, S2, No murmur Abdomen/GI:Soft, Non tender, Bowel sounds present Extremities/Musculoskelatal:normal inspection, no edema Neurologic/Psych:AAOX3, grossly no focal neurological deficits Skin: normal color, warm Results & Data Results & Data ([facility]) Vital Signs (Past 12 Hours) Vital Signs Temp Pulse Pulse Resp BP BP Pulse Ox 11/29/20 12:17 98 H 16 95 11/29/20 11:51 36.9 C 94 H 18 178/77 H 93 11/29/20 08:00 88 11/29/20 06:53 36.5 C 88 18 172/75 H 95 11/29/20 03:30 37.0 C 89 18 168/80 H 99 Laboratory Results Short CBC 11/29/20 Range/Units 05:40 WBC 6.06 (4.8-10.8) K/uL Hgb 11.7 L (12.0-16.0) g/dL Hct 38.1 (37-47) % Plt Count 257 (130-400) K/uL BMP 11/29/20 05:40 Sodium 144 Potassium 3.6 Chloride 108 H Carbon Dioxide 33 H BUN 11 Creatinine 0.68 Glucose 91 Calcium 8.8 Urine 11/29/20 Range/Units 00:50 Urine Color Yellow Urine Appearance Clear (Clear) Urine pH 7.0 (4.5-7.5) Ur Specific [place] 1.010 (1.000-1.030) Urine Protein Negative (Negative) Urine Glucose (UA) Negative (Negative) (1) Syncope Syncope type: unspecified Qualified Code(s): R55 - Syncope and collapse
--- NOTE | 2020-11-29 16:31 | Ultrasound Report ---
ULTRASOUND OF THE CAROTID ARTERIES CLINICAL HISTORY: Syncope. COMPARISON STUDY: CT angiogram of the neck dated 09/20/2019. TECHNIQUE: Real-time, grayscale, and color Doppler sonography of the carotid arteries is performed. I mages are reviewed in the transverse and longitudinal planes. FINDINGS: Blood pressure in the right arm measures 153/86 and blood pressure in the left arm measures 150/82. The carotid arteries are patent bilaterally and demonstrate antegrade flow. There is moderate to adva nced atherosclerotic shadowing plaque is seen in the carotid bulbs bilaterally. Normal doppler arteri al waveforms are seen throughout. Velocity measurements are listed below. Common carotid peak systolic velocity (cm/sec): RIGHT: 64 LEFT: 73 ICA proximal peak systolic velocity (cm/sec): RIGHT: 206 LEFT: 143 ICA mid peak systolic velocity (cm/sec): RIGHT: 90 LEFT: 81 ICA distal peak systolic velocity (cm/sec): RIGHT: 54 LEFT: 95 ICA/CC peak systolic ratio: RIGHT: 3.2 LEFT: 2.0 Antegrade flow was shown in the vertebral arteries. The external carotid arteries are patent. Elevate d velocities within the right external carotid arteries suggests some degree of stenosis. IMPRESSION: 1. There is atherosclerotic plaque with evidence of 50-69% stenosis of the proximal internal carotid artery bilaterally by velocity criteria. 2. Antegrade flow is shown in the vertebral arteries. ACT 112: Negative or not required by law. Electronically signed by: Marlon Stewart M.D. 11/29/2020 4:30 PM
[2020-11-29] MEDS: MIRTAZAPINE TAB 15 MG TAB PO SCH (20:14)
[2020-11-29] MEDS: ROSUVASTATIN CALCIUM 20 MG TAB PO SCH (20:14)
[2020-11-29] MEDS: FLUTICASONE PROPIONATE NA SPR 16 GM BTL NAE SCH (20:15)
[2020-11-29] MEDS: MONTELUKAST SODIUM 10 MG TABLET PO SCH (20:17)
[2020-11-30] MEDS: HEPARIN SOD 5,000 UNIT/0.5 ML VIAL SQ SCH ×3 (05:13→20:22)
[2020-11-30] MEDS: PANTOprazole 40 MG TAB PO SCH (05:14)
[2020-11-30] MEDS: LORazepam 0.5 MG TAB PO PRN ×2 (05:55→20:25)
[2020-11-30 06:22] LABS: Hematocrit (blood only) 36.4 % (37-47); Hemoglobin 11.3 g/dL (12.0-16.0); Mean Corpuscular Hemoglobin 29.1 pg (25-34); Mean Corpuscular Volume 93.8 fL (80-100); Mean Platelet Volume 8.6 fL (7.4-10.4); Platelet Count 240 K/uL (130-400); RDW Coefficient of Variation 13.3 % (11.5-14.5); RDW Standard Deviation 45.4 fL (36.4-46.3); Red Blood Count 3.88 M/uL (4.2-5.4); White Blood Count 5.81 K/uL (4.8-10.8)
[2020-11-30 06:41] LABS: BUN Creatinine Ratio 14.8 (10-20); Calcium 8.8 mg/dl (8.5-10.1); Creatinine Clr Calc Pharmacy 40.9 ml/min; Est GFR (African American) 82.3; Potassium 3.9 mmol/L (3.5-5.1)
[2020-11-30] MEDS: ALBUT/IPRATROP 3MG/0.5MG NEB 3 ML VIAL NEB SCH ×4 (07:08→19:52)
[2020-11-30] MEDS ORDERED: LORazepam 0.5 MG TAB PO ONE (08:43)
[2020-11-30] MEDS: amLODIPine BESYLATE 5 MG TAB PO SCH (09:03)
[2020-11-30] MEDS: GABAPENTIN 100 MG CAP PO SCH ×3 (09:03→20:21)
[2020-11-30] MEDS: FLUTICASONE/VILANTEROL 200/25MCG 14 PUFFS/INHALER INH SCH (09:03)
[2020-11-30] MEDS: levETIRAcetam 250 MG TAB PO SCH ×2 (09:04→20:21)
[2020-11-30] MEDS: OLANZAPINE 2.5 MG TAB PO SCH ×2 (09:04→20:20)
[2020-11-30] MEDS: VENLAFAXINE HCL XR 150 MG CAPXR PO SCH (09:04)
[2020-11-30] MEDS: ASCORBIC ACID 500 MG TAB PO SCH (09:05)
[2020-11-30] MEDS: DOCUSATE SODIUM 100 MG CAP PO SCH (09:05)
[2020-11-30] MEDS: CYANOCOBALAMIN (VITAMIN B-12) 100 MCG TABLET PO SCH (09:05)
[2020-11-30] MEDS: VENLAFAXINE HCL XR 37.5 MG CAPXR PO SCH (09:05)
[2020-11-30] MEDS: CALCIUM 600MG + VIT D 400 IU TAB PO SCH (09:05)
[2020-11-30] MEDS: FOLIC ACID 1 MG TAB PO SCH (09:46)
[2020-11-30] MEDS: THIAMINE HCL 100 MG TAB PO SCH (09:46)
--- NOTE | 2020-11-30 09:52 | Cardiology Progress Note ---
Date of Service November 30, 2020 Assessment & Plan (1) Sick sinus syndrome: Patient is a complex 75-year-old female with medical issues as well outlined including significant underlying chronic obstructive lung disease, past seizure disorder, Covid pneumonia in July 2020. Patient's had recent difficulties with syncope and near syncope with Zio patch event monitor demonstrating significant pauses to greater than 10 seconds in duration Plan: Patient for pacemaker insertion later today. Propanolol already held previously being used for tremor. Pulmonary status stable (2) Syncope: (3) Bronchiolitis obliterans: (4) Seizure disorder: (5) Primary basaloid squamous cell carcinoma of lung: Admission and Anticipated Discharge Date Admission Date: November 28, 2020 Subjective Patient M Patient was seen and examined, chart, medications, telemetry reviewed. No tachycardia or bradycardia arrhythmias overnight. Overall appears less anxious this morning no acute distress. No fevers or chills. The patient is n.p.o. for anticipated pacemaker this afternoon. "Looking forward to getting it over" Review of Systems Review of Systems: All systems reviewed & are unremarkable except as noted in HPI & below Physical Exam Constitutional: + thin; no acute distress Eyes: PERRL, conjunctivae normal, anicteric sclerae ENMT: external ear and nose normal, oropharynx normal Neck: trachea midline, no thyromegaly Respiratory: Diminished breath sounds a few scattered wheezes with cough at the bases improved from past exam Cardiovascular: Rate/Rhythm: regular rate and regular rhythm Heart Sounds: normal S1 and normal S2; no murmur Vessels: no JVD Extremities: no edema Gastrointestinal (Abdomen): normal bowel sounds, soft, nontender, no hepatosplenomegaly Musculoskeletal: no cyanosis or clubbing, extremities motor strength 5/5 Neurologic: Motor/Sensory: + tremor Results & Data ([facility]) Vital Signs (Past 12 Hours) Vital Signs Temp Pulse Resp BP Pulse Ox 11/30/20 08:08 37.0 C 99 H 18 186/78 H 93 11/30/20 07:08 104 H 22 91 11/30/20 03:28 36.7 C 100 H 18 157/76 H 97 11/29/20 23:16 36.9 C 108 H 16 156/79 H 96 Laboratory Results Laboratory Results - last 24 hr 11/30/20 11/30/20 06:09 06:09 WBC 5.81 RBC 3.88 L Hgb 11.3 L Hct 36.4 L MCV 93.8 MCH 29.1 MCHC 31.0 L RDW Std Deviation 45.4 RDW Coeff of Yamini 13.3 Plt Count 240 MPV 8.6 Sodium 143 Potassium 3.9 Chloride 107 Carbon Dioxide 31 Anion Gap 5.0 BUN 12 Creatinine 0.81 Est Cr Clr Drug Dosing 40.9 Est GFR ( Amer) 82.3 Est GFR (Non-Af Amer) 71.0 BUN/Creatinine Ratio 14.8 Glucose 102 H Calcium 8.8 Magnesium 2.0 (1) Syncope Syncope type: unspecified Qualified Code(s): R55 - Syncope and collapse
[2020-11-30] MEDS ORDERED: LORazepam 1 MG TAB PO PRN (12:03)
[2020-11-30] MEDS ORDERED: MIDAZOLAM HCL 5 MG/ML 1 ML VIAL ONE (16:32)
[2020-11-30] MEDS ORDERED: LIDOCAINE HCL 1% 20 ML VIAL ONE (16:32)
[2020-11-30] MEDS ORDERED: fentaNYL citrate 100 MCG/2 ML VIAL ONE (16:32)
[2020-11-30] MEDS ORDERED: BUPIVACAINE 0.25% 30 ML VIAL ONE (16:33)
[2020-11-30] MEDS ORDERED: BACITRACIN INJ 50,000 UNIT VIAL ONE (16:33)
--- NOTE | 2020-11-30 16:48 | Pre Anesthesia Assessment ---
Date of Service November 30, 2020 Pre Sedation Assessment Vital Signs Temp Pulse Pulse Resp BP Pulse Ox 11/30/20 16:39 37.0 C 105 H 18 167/81 H 99 11/30/20 15:44 37.1 C 99 H 19 171/83 H 97 11/30/20 12:07 37.1 C 95 H 18 169/74 H 93 11/30/20 11:10 100 H 20 92 11/30/20 08:08 37.0 C 99 H 18 186/78 H 93 11/30/20 08:00 90 11/30/20 07:08 104 H 22 91 11/30/20 03:28 36.7 C 100 H 18 157/76 H 97 11/29/20 23:16 36.9 C 108 H 16 156/79 H 96 11/29/20 20:02 99 H 18 96 11/29/20 19:27 37.0 C 108 H 20 136/70 94 Cardiovascular + regular rhythm Respiratory normal respiratory effort, lungs clear to auscultation Pre-Sedation Airway Assessment Smoking Status: Current every day smoker Hx Sleep Apnea: No Hx Difficult Intubation: No Short, Thick Neck: Yes Thyromental Distance: > or= 3.5 Finger Breadths Oral Cavity: + WNL Mallampati Class: III ASA: ASA2 NPO Status Date of Last Intake of Fluids: 11/30/20 Time of Last Intake of Fluids: 07:00 Date of Last Intake of Solid Food: 11/29/20 Time of Last Intake of Solid Foods: 20:00 Procedure Planning Contraindications for Sedation: none Current Medications Reviewed: Yes Notes The planned sedation has been discussed with the patient. Informed Consent was obtained. I have identified the patient, determined the appropriateness of sedation and have assessed the patient immediately prior to the procedure. All medicine(s) and interventions are by my order.
--- NOTE | 2020-11-30 16:49 | History & Physical Bridge Note ---
Date of Service November 30, 2020 History & Physical Bridge Note I have examined the patient, reviewed the History & Physical and in the interval since the performance of the History & Physical I have noted the following changes of clinical significance: pt with marked sinus arrest and pauses for a dual chamber ppm; discussed the procedure and potential risks; consents signed
--- NOTE | 2020-11-30 17:44 | Hospitalist Progress Note ---
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 Sick sinus syndrome Zio patch showed significant pauses ECHO: Left ventricle is normal in size. There is mild concentric LVH. Left ventricle wall motion is normal. Ejection fraction 65 to 70%. Aortic valvular sclerosis mild, without significant aortic valvular stenosis Carotid USD:There is atherosclerotic plaque with evidence of 50-69% stenosis of the proximal internal carotid artery bilaterally by velocity criteria. Antegrade flow is shown in the vertebral arteries. Discontinued propranolol Avoid AV deacon blocking agents Atropine as needed Pacer pads at bedside Appreciate cardiology input Planned for pacemaker placement today May need vascular surgery evaluation if remains symptomatic despite pacemaker placement Hypertension Continue Amlodipine Monitor Hypokalemia Replace electrolytes as needed Monitor COPD Continue Nebs Hold Azithromycin for now Supplemental oxygen as needed Alcohol use Monitor for withdrawal Continue thiamine, folic acid Squamous cell carcinoma of lung [facility] Seizure disorder Continue Keppra Mood Disorder Insomnia Continue home meds Hyperlipidemia Continue statin DVT Px: Heparin SQ Code status: Conditional Code Admission and Anticipated Discharge Date Admission Date: November 28, 2020 Subjective Patient is seen and examined at bedside States having tremor and was anxious earlier today Plan for pacemaker placement today Denies chest pain, dyspnea, dizziness, nausea, abd pain Offers no other complaints Review of Systems Review of Systems: At least ten systems reviewed and negative except as noted in the HPI. Physical Exam Physical Exam: Physical Exam: Vitals signs as noted above General Appearance:Thin, Frail, no apparent distress Head: normocephalic, Atraumatic Eyes: normal inspection, EOMI Neck: supple, Trachea midline Respiratory/Chest: Decreased breath sounds, B/L Wheezing/Rhonchi Cardiovascular: S1, S2, No murmur Abdomen/GI:Soft, Non tender, Bowel sounds present Extremities/Musculoskelatal:normal inspection, no edema Neurologic/Psych:AAOX3, grossly no focal neurological deficits Skin: normal color, warm Results & Data Results & [facility] ([facility]) Vital Signs (Past 12 Hours) Vital Signs Temp Pulse Pulse Resp BP Pulse Ox 11/30/20 16:39 37.0 C 105 H 18 167/81 H 99 11/30/20 15:44 37.1 C 99 H 19 171/83 H 97 11/30/20 12:07 37.1 C 95 H 18 169/74 H 93 11/30/20 11:10 100 H 20 92 11/30/20 08:08 37.0 C 99 H 18 186/78 H 93 11/30/20 08:00 90 11/30/20 07:08 104 H 22 91 Laboratory Results Short CBC 11/30/20 Range/Units 06:09 WBC 5.81 (4.8-10.8) K/uL Hgb 11.3 L (12.0-16.0) g/dL Hct 36.4 L (37-47) % Plt Count 240 (130-400) K/uL BMP 11/30/20 06:09 Sodium 143 Potassium 3.9 Chloride 107 Carbon Dioxide 31 BUN 12 Creatinine 0.81 Glucose 102 H Calcium 8.8 (1) Syncope Syncope type: unspecified Qualified Code(s): R55 - Syncope and collapse
--- NOTE | 2020-11-30 18:13 | Post Anesthesia Assessment ---
Date of Service November 30, 2020 Post Sedation Assessment Vital Signs Temp Pulse Pulse Resp BP Pulse Ox 11/30/20 16:39 37.0 C 105 H 18 167/81 H 99 11/30/20 15:44 37.1 C 99 H 19 171/83 H 97 11/30/20 12:07 37.1 C 95 H 18 169/74 H 93 11/30/20 11:10 100 H 20 92 11/30/20 08:08 37.0 C 99 H 18 186/78 H 93 11/30/20 08:00 90 11/30/20 07:08 104 H 22 91 11/30/20 03:28 36.7 C 100 H 18 157/76 H 97 11/29/20 23:16 36.9 C 108 H 16 156/79 H 96 11/29/20 20:02 99 H 18 96 11/29/20 19:27 37.0 C 108 H 20 136/70 94 Recovery Score Activity: Moves 4 extremities Respiration: Deep Breath/Cough Circulation: +/-20% PreAnes Value Consciousness: Fully Awake Oxygen Saturation: > 92% On Room Air Discharge Sedation Level of Care: Fast Track Phase II Post Sedation Plan On clinical assessment, the patient appears to have tolerated the sedation without complications. Patient is recovering as anticipated. Patient will continue to be monitored by nursing and may be discharged when sedation discharge criteria are met per below protocol. Upon Completions of procedure up to 15 minutes continue every 5 minute vital signs and the P.A.R. score; then discharge to a Phase I or Fast Track to Phase II per the following guidelines: * Discharge Patient to appropriate Phase II area if PAR is 8 or greater or return to pre- procedure baseline. The post - procedure orders will be as directed. * If PAR score is less than 8 or not return to pre-procedure baseline then patient will follow Phase I monitoring till PAR is reached for Phase II. The Phase I may be done in procedure room or may call to secure a Phase I area. * If naloxone or flumazenil are used for reversal, hold in Phase I for continued monitoring from when last reversal dose was given for a minimum of 60 minutes or longer pending the nurse and/or physician discretion of patient condition before discharge to Phase II. Please call the Sedation Physician to re-evaluate and complete post-note for discharge to Phase II area. Do NOT discharge from procedure sedation or Phase 1 until post- sedation evaluation note is complete by procedure /sedation MD Sedation Discharge Instructions to be given to the patient at discharge to home.
--- NOTE | 2020-11-30 18:14 | Operative Report ---
Post Operative Report Pre & Post Diagnosis Sinus arrest Operation Date: 11/30/20 15:00 <No data on this case meets the specified criteria> I identified the patient and participated in the time-out.: Yes Procedure Operation Date: 11/30/20 15:00 Actual Procedures p Pacer with A/V Leads (Dual) - Elise Al DO Surgeon Elise Al, DO Supervisor [place] none Estimated Blood Loss 20 Findings Consistent with Post-Op Diagnosis Specimens none Description of Procedure see official report I attest to the content of the Intraoperative Record and any orders documented therein. Any exceptions are noted below.
[2020-11-30] MEDS: FLUTICASONE PROPIONATE NA SPR 16 GM BTL NAE SCH (20:18)
[2020-11-30] MEDS: MIRTAZAPINE TAB 15 MG TAB PO SCH (20:19)
[2020-11-30] MEDS: ROSUVASTATIN CALCIUM 20 MG TAB PO SCH (20:21)
[2020-11-30] MEDS: MONTELUKAST SODIUM 10 MG TABLET PO SCH (20:22)
[2020-11-30] MEDS: ACETAMINOPHEN 325 MG TAB PO PRN (20:25)
[2020-12-01] MEDS: HEPARIN SOD 5,000 UNIT/0.5 ML VIAL SQ SCH ×2 (05:39→13:17)
[2020-12-01] MEDS: PANTOprazole 40 MG TAB PO SCH (05:39)
[2020-12-01] MEDS: ACETAMINOPHEN 325 MG TAB PO PRN (05:54)
--- NOTE | 2020-12-01 06:13 | Electrocardiogram Report ---
Test Reason : Blood Pressure : / mmHG Vent. Rate : 093 BPM Atrial Rate : 093 BPM P-R Int : 170 ms QRS Dur : 092 ms QT Int : 374 ms P-R-T Axes : 074 066 080 degrees QTc Int : 465 ms Normal sinus rhythm Normal ECG When compared with ECG of 29-NOV-2020 06:45, Artifact no longer present Confirmed by Jun Maxwell ([id number]) on 12/01/2020 6:13:23 AM Referred By: [facility] Confirmed By:Jun Maxwell
[2020-12-01] MEDS: ALBUT/IPRATROP 3MG/0.5MG NEB 3 ML VIAL NEB SCH ×2 (07:11→14:18)
[2020-12-01 07:55] LABS: Basophils # (auto) 0.02 K/uL (0-0.2); Basophils % (auto) 0.3 %; Eosinophils % (auto) 1.5 %; Hematocrit (blood only) 35.3 % (37-47); Hemoglobin 11.2 g/dL (12.0-16.0); Immature Granulocytes # (auto) 0.01 K/uL (0.00-0.02); Immature Granulocytes % (auto) 0.1 %; Lymphocytes # (auto) 0.87 K/uL (1.2-3.4); Lymphocytes % (auto) 12.7 %; Mean Corpuscular Hemoglobin 29.3 pg (25-34); Mean Corpuscular Hgb Conc 31.7 g/dL (32-36); Mean Corpuscular Volume 92.4 fL (80-100); Mean Platelet Volume 8.4 fL (7.4-10.4); Monocytes # (auto) 0.63 K/uL (0.11-0.59); Monocytes % (auto) 9.2 %; Neutrophils % (auto) 76.2 %; Platelet Count 204 K/uL (130-400); RDW Coefficient of Variation 13.4 % (11.5-14.5); RDW Standard Deviation 45.4 fL (36.4-46.3); Red Blood Count 3.82 M/uL (4.2-5.4); White Blood Count 6.83 K/uL (4.8-10.8)
[2020-12-01] MEDS: GABAPENTIN 100 MG CAP PO SCH ×2 (07:57→13:16)
[2020-12-01] MEDS: FLUTICASONE/VILANTEROL 200/25MCG 14 PUFFS/INHALER INH SCH (07:57)
[2020-12-01] MEDS: CYANOCOBALAMIN (VITAMIN B-12) 100 MCG TABLET PO SCH (07:57)
[2020-12-01] MEDS: amLODIPine BESYLATE 5 MG TAB PO SCH (07:58)
[2020-12-01] MEDS: OLANZAPINE 2.5 MG TAB PO SCH (07:58)
[2020-12-01] MEDS: VENLAFAXINE HCL XR 150 MG CAPXR PO SCH (07:58)
[2020-12-01] MEDS: DOCUSATE SODIUM 100 MG CAP PO SCH (07:58)
[2020-12-01] MEDS: FOLIC ACID 1 MG TAB PO SCH (07:58)
[2020-12-01] MEDS: levETIRAcetam 250 MG TAB PO SCH (07:58)
[2020-12-01] MEDS: VENLAFAXINE HCL XR 37.5 MG CAPXR PO SCH (07:59)
[2020-12-01] MEDS: ASCORBIC ACID 500 MG TAB PO SCH (07:59)
[2020-12-01] MEDS: THIAMINE HCL 100 MG TAB PO SCH (07:59)
[2020-12-01] MEDS: CALCIUM 600MG + VIT D 400 IU TAB PO SCH (07:59)
[2020-12-01 08:21] LABS: BUN Creatinine Ratio 14.9 (10-20); Calcium 8.9 mg/dl (8.5-10.1); Creatinine Clr Calc Pharmacy 34.5 ml/min; Est GFR (African American) 67.1; Est GFR (Non-African American) 57.9; Magnesium 1.9 mg/dl (1.8-2.4); Potassium 4.1 mmol/L (3.5-5.1)
[2020-12-01] MEDS ORDERED: PROPRANOLOL HCL 20 MG TAB PO SCH (09:00)
[2020-12-01] MEDS: PROPRANOLOL HCL 20 MG TAB PO SCH ×2 (09:01→13:16)
--- NOTE | 2020-12-01 11:43 | Operative Report (OR) ---
DATE OF OPERATION: 11/30/2020 PREOPERATIVE DIAGNOSES: Sinus arrest, syncope, sick sinus syndrome. POSTOPERATIVE DIAGNOSES: Sinus arrest, syncope, sick sinus syndrome. PROCEDURE: Dual chamber rate responsive permanent pacemaker under fluoroscopic guidance. SURGEON: Elise Al DO. ASSISTANTS: None. ANESTHESIA: Monitored conscious sedation administered under my supervision by Birgit Pham. Start time 1703, end time 1810, a total of 2 mg of Versed and 75 mcg of fentanyl. INTRAVENOUS FLUIDS: 65 mL. BLOOD LOSS: 20 mL. ANTIBIOTICS: 1 gram of Ancef. COMPLICATIONS: None. CONDITION: Stable. URINE OUTPUT: Not applicable. SPECIMENS: None. FINDINGS: See below. DRAINS: None. INDICATIONS: This is a 75-year-old female who has a past medical history for syncope, possible seizure disorder, COPD on oxygen, anxiety, essential tremor, basal and squamous cell cancer of the lung, bronchiolitis obliterans. She wore a Zio patch monitor that showed evidence of sick sinus syndrome as well as sinus arrest correlating with her syncope, so she was prompted to come to the hospital and before discharge, she was recommended a pacemaker. CONSENT: Consent was obtained prior to the patient going into electrophysiology lab. The patient was informed of the risks, benefits and alternative procedure. Risks include but not limited to sudden cardiac , cardiac arrhythmias, cerebrovascular accident, myocardial infarction, injury to the blood vessels, chamber of the heart, lung, bleeding, and infection. The patient understood these risks and agreed with procedure as planned. Informed consent was obtained. DESCRIPTION OF THE PROCEDURE: The patient was brought into the electrophysiology lab in a fasting state. She was connected to continuous groundwater monitoring technician. Timeout was performed to ensure patient's identity and procedure correctly. She was prepped and draped over the left infraclavicular space in normal surgical standard fashion. Monitored conscious sedation was given throughout the procedure for patient's comfort level. She received prophylactic antibiotics prior to incision. Bendena questions maintained throughout the procedure. 20 mL of 1% lidocaine, bupivacaine mixture were given in the left deltopectoral groove. Incision was made in left deltopectoral groove. Blunt dissection performed down to identify cephalic vein. Cephalic vein was identified and isolated using 0 silk ties. It was very small, so I used an 18-gauge IV angiocatheter set up to access and had a Glidewire go through without any problems. Then an 8-[place]oz[place] SafeSheath was advanced over the Glidewire without any resistance. Dilator was removed and a second guidewire was inserted through the sheath to allow for retained venous access. Sheath was removed, flushed, reinserted over the dilator, then reinserted along the guidewires. The guidewire and dilator were removed and the right ventricular lead was advanced into right ventricle positioned in ventricular apex under fluoroscopic guidance. There was adequate pacing and sensing thresholds and no diaphragmatic stimulation in high output pacing. The 8-[place]oz[place] sheath was peeled away and lead was fixated to pectoralis muscle using 0 silk suture. A second 8-[place] SafeSheath was advanced over the retained guidewire without any resistance. Guidewire and dilator removed. The right atrial lead was advanced into right atrium and positioned interatrial appendage under fluoroscopic guidance. There was adequate pacing and sensing thresholds and no diaphragmatic stimulation in high output pacing. The 8-[place] sheath was peeled away and lead was fixated to pectoralis muscle using 0 silk suture. A pacemaker pocket was created using blunt dissection over the pectoralis muscle within the pectoralis fascia. The pocket was flushed with copious amounts of bacitracin saline wash and inspected for hemostasis. The pulse generator was attached to the leads making sure the pins were in appropriate position, passed set screw and set screws were all tightened. Pulse generator was then placed in the pocket, making sure the leads were lying flat beneath the device. A stay stitch was used to secure the device to the pectoralis muscle using 0 silk suture. The incision was then closed in 3-layer fashion with 2-0 Vicryl interrupted suture followed by 3-0 Vicryl interrupted suture, followed by 4-0 Monocryl running stitch and Dermabond was applied followed by Telfa and micropore dressing. EQUIPMENT: 1. Pulse generator is a globa.ly Tori XT DR CAROLINE Peña [id number], serial number [id number]. 2. Right atrial lead Medtronic 5076-52 cm, serial number [id number]. 3. Right ventricular lead, Medtronic 5076-58 cm, serial number [id number]. INTRAOPERATIVE TESTIN. Right atrial lead: P waves 1 millivolt, impedance 475 ohms, threshold 0.9 volts at 0.4 milliseconds. 2. Right ventricular lead: R waves 12.6 millivolts, impedance 874 ohms, threshold 0.4 volts at 0.4 milliseconds. FINAL PARAMETERS THROUGH THE DEVICE: 1. Right atrial lead: P waves 1.3 millivolts, impedance 551 ohms, threshold 0.75 volts at 0.4 milliseconds. 2. Right ventricular lead: R waves 18.8 millivolts, impedance 988 ohms, threshold 0.5 volts at 0.4 milliseconds. FINAL PARAMETERS: MVP-R 60/130, right atrial amplitude 3.5 volts, pulse width 0.4 milliseconds, sensitivity 0.3 millivolts. Right ventricular amplitude 3.5 volts, pulse width 0.4 milliseconds, sensitivity 1.2 millivolts. IMPRESSION: Successful implantation of a dual chamber rate responsive permanent pacemaker under fluoroscopic guidance secondary to sinus arrest, syncope and sick sinus syndrome. PLAN: Monitor the patient overnight. She is not allowed to lift left elbow or left shoulder for 1 month. She cannot lift more than 10 pounds with the left arm for 2 weeks. She is to keep the dressing on and dry until her wound check next week and I recommend her having a surgical bra or wearing a sports bra to help with wound healing over the next 2 weeks. I attest to the content of the Intraoperative Record and any orders documented therein. Any exceptions are noted below. PROSPER
--- NOTE | 2020-12-01 12:12 | Hospitalist Progress Note ---
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 Sick sinus syndrome Zio patch showed significant pauses ECHO: Left ventricle is normal in size. There is mild concentric LVH. Left ventricle wall motion is normal. Ejection fraction 65 to 70%. Aortic valvular sclerosis mild, without significant aortic valvular stenosis Carotid USD:There is atherosclerotic plaque with evidence of 50-69% stenosis of the proximal internal carotid artery bilaterally by velocity criteria. Antegrade flow is shown in the vertebral arteries. S/P Pacemaker placement on 11/30/20 Appreciate cardiology input May need vascular surgery evaluation if remains symptomatic despite pacemaker placement Resumed/Increased Propranolol to 20mg TID Needs follow-up with cardiology upon discharge Hypertension Continue Amlodipine Monitor Hypokalemia Replace electrolytes as needed Monitor COPD Continue Nebs Hold Azithromycin for now Supplemental oxygen as needed Alcohol use Monitor for withdrawal Continue thiamine, folic acid Squamous cell carcinoma of lung Follows [facility] Pulmonology Seizure disorder Continue Keppra Mood Disorder Insomnia Continue home meds Hyperlipidemia Continue statin DVT Px: Heparin SQ Code status: Conditional Code Admission and Anticipated Discharge Date Admission Date: November 28, 2020 Subjective Patient is seen and examined at bedside Patient had pacemaker placement yesterday States feeling well today Discussed with cardiology today Admits to having some discomfort at the pacemaker site Denies chest pain, dyspnea, dizziness, nausea, abd pain Plan to be discharged home today Review of Systems Review of Systems: All systems reviewed & are unremarkable except as noted in HPI & below Physical Exam Physical Exam: Physical Exam: Vitals signs as noted above General Appearance:Thin, Frail, no apparent distress Head: normocephalic, Atraumatic Eyes: normal inspection, EOMI Neck: supple, Trachea midline Respiratory/Chest: Decreased breath sounds, CTA Cardiovascular: S1, S2, No murmur Abdomen/GI:Soft, Non tender, Bowel sounds present Extremities/Musculoskelatal:normal inspection, no edema Neurologic/Psych:AAOX3, grossly no focal neurological deficits Skin: normal color, warm Results & Data Results & Data ([facility]) Vital Signs (Past 12 Hours) Vital Signs Temp Pulse Pulse Resp BP Pulse Ox 12/01/20 08:13 36.6 C 91 H 18 135/88 98 12/01/20 08:00 92 H 12/01/20 07:12 97 H 18 95 12/01/20 03:00 37.1 C 99 H 18 113/80 91 Laboratory Results Short CBC 12/01/20 Range/Units 07:44 WBC 6.83 (4.8-10.8) K/uL Hgb 11.2 L (12.0-16.0) g/dL Hct 35.3 L (37-47) % Plt Count 204 (130-400) K/uL BMP 12/01/20 07:44 Sodium 139 Potassium 4.1 Chloride 105 Carbon Dioxide 31 BUN 14 Creatinine 0.96 Glucose 105 H Calcium 8.9 (1) Syncope Syncope type: unspecified Qualified Code(s): R55 - Syncope and collapse
--- NOTE | 2020-12-01 12:23 | Discharge Summary ---
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 History of recent syncopal episodes over the past 4 weeks. Was placed on zio patch monitor by PCP Dr. Feliciano for the past 13 days which revealed significant pauses greater than 10 seconds that correlated with symptoms of lightheadedness and near syncope/syncope. Also endorses intermittent nausea and dyspnea on exertion. Discussed Zio patch findings over the phone with director of online education Dr. Farley last evening the patient initially refused coming to hospital for treatment. After encouragement from family this morning, patient was agreeable to come in for further evaluation. Propranolol medication has been discontinued. Plan for pacemaker placement tentatively on Monday. External pacer is in place. Currently feeling well despite some nausea. Denies any fever, chills, headache, lightheadedness, chest pain, shortness of breath, vomiting, abdominal pain, dysuria, diarrhea constipation. Admission Exam Per Admitting Provider Physical Exam Physical Exam: General Appearance: WD/WN, vitals as above, NAD, sitting up in bed, pleasant, conversing easily Head: normocephalic, atraumatic Eyes: normal inspection, PERRL, conjunctivae normal, anicteric sclerae ENT: external ear and nose normal, oropharynx normal Neck: normal visual inspection, trachea midline, no thyromegaly Respiratory: normal respiratory effort, coarse lung sounds with scattered rhonchi. No wheezing or rales. No accessory muscle use Cardiovascular: regular rate, rhythm, no murmur appreciated, normal peripheral pulses, trace BLE edema. Vessels: no JVD Chest: normal inspection of chest Abdomen/GI: normal bowel sounds, soft, nontender, no hepatosplenomegaly Extremities/Musculoskeletal: no cyanosis or clubbing, extremities motor strength 5/5 Neurologic: PERRL, EOMI, accommodation nl, no face palsy, no dysarthria, CN's II-XI intact bilaterally and moves all extremities Psychiatric: A+Ox3, euthymic affect Skin: no rashes, normal color, warm/dry Principal Diagnosis Sick sinus syndrome Discharge Data Allergies Allergy/AdvReac Type Severity Reaction Status Date / Time pollen extracts Allergy Intermediate CONGESTION Verified 11/28/20 13:05 Consultations 11/28/20 12:22 ED Decision to Admit Stat 11/28/20 13:56 Consult Cardiology Routine Procedures Performed Operation Date: 11/30/20 15:00 Actual Procedures p Pacer with A/V Leads (Dual) - Elise Al DO Ordered Studies 11/29/20 13:35 US carotid doppler BI Routine 11/30/20 16:47 CL Cath Imgs for PACS use only Stat ECHO: Left ventricle is normal in size. There is mild concentric LVH. Left ventricle wall motion is normal. Ejection fraction 65 to 70%. Aortic valvular sclerosis mild, without significant aortic valvular stenosis Carotid USD:There is atherosclerotic plaque with evidence of 50-69% stenosis of the proximal internal carotid artery bilaterally by velocity criteria. Antegrade flow is shown in the vertebral arteries. Hospital Course (1) Syncope: (2) Sick sinus syndrome: Patient is a 75 yr female with H/O Squamous cell basaloid carcinoma of the lingula, COPD on 2 L of O2 with exertion and at at bedtime, bronchiolitis obl iterans, tobacco abuse, complex partial seizures, depression with anxiety, hyperlipidemia, chronic constipation and other medical problems listed below who presents after abnormal findings from Zio patch cardiac monitoring. Sick sinus syndrome Zio patch showed significant pauses ECHO: Left ventricle is normal in size. There is mild concentric LVH. Left ventricle wall motion is normal. Ejection fraction 65 to 70%. Aortic valvular sclerosis mild, without significant aortic valvular stenosis Carotid USD:There is atherosclerotic plaque with evidence of 50-69% stenosis of the proximal internal carotid artery bilaterally by velocity criteria. Antegrade flow is shown in the vertebral arteries. S/P Pacemaker placement on 11/30/20 Appreciate cardiology input May need vascular surgery evaluation if remains symptomatic despite pacemaker placement Resumed/Increased Propranolol to 20mg TID Needs follow-up with cardiology upon discharge Hypertension Continue Amlodipine Monitor Hypokalemia Replace electrolytes as needed Monitor COPD Continue Nebs Hold Azithromycin for now Supplemental oxygen as needed Alcohol use Monitor for withdrawal Continue thiamine, folic acid Squamous cell carcinoma of lung Follows [facility] Pulmonology Seizure disorder Continue Keppra Mood Disorder Insomnia Continue home meds Hyperlipidemia Continue statin DVT Px: Heparin SQ Code status: Conditional Code Total Time Total Time Spent Total Time Spent (In Minutes): 46 minutes Total Time Includes: Examination of the Patient, Discharge Planning, Medication Reconciliation, Communication With Other Providers and Other Discharge Plan Discharge Items Patient Disposition: Home - Self-Care Reason For Visit: CARDIAC ASSESSMENT Discharge Diagnosis: Sick sinus syndrome Condition on Discharge: Good Activity: As commented below Activity Comment: do not raise the left elbow over the left shoulder for 1 month Lifting: No more than 10 pounds Lifting Comment: do not lift more than 10 pounds with the left arm for 2 weeks Bathing: Keep incision dry Bathing Comment: keep dressing on and dry until wound check next week Driving/Machine Use: Resume 1 day after discharge Non-emergency contact: Primary Care Provider and Dairy Technologist Call non-emergency contact if: you have any medication questions, your symptoms worsen, your pain is concerning for you, you have a fever, your wound has increased redness, your wound has increased drainage and your wound pain has increased Follow-up/Referrals: Kenzie Feliciano MD [Hospitalist] - 12/07/20 11:00 am (Date & Time 12/07/2020 11:00 AM Provider Kenzie Feliciano MD Department General Internal Medicine [facility] ) [facility] - Elise Al DO [Physician] - 12/10/20 8:30 am (Date & Time 12/10/2020 8:30 AM Provider Pacer Clinic [facility] Cardiology, [facility] ) Diet: Heart Healthy Addtl Attending Provider Instructions: Device and wound check at [facility] next week on 12/10/2020 at 8:15am Keep dressing dry until wound check Try to wear a surgical bra or sports bra for 2 weeks to help with wound healing Follow-up with your primary care physician Dr. Feliciano on 12/07/2020 11:00 AM as scheduled Follow-up with your director of online education on 12/10/2020 8:30 AM as scheduled Your Propranolol is increased to 20mg 3 times a day as recommended by your director of online education. Seek immediate medical attention if your symptoms reoccur or worsen Quit drinking alcohol as advised. Pending Studies at Discharge: No Stand-Alone Forms: [facility] [employer], Smoking Cessation Medications and DC Order Prescriptions: New amlodipine [Norvasc] 5 mg Tablet 2.5 mg PO QAM Qty: 30 RF: 0 propranolol 20 mg Tablet 20 mg PO TID 30 Days Qty: 90 RF: 0 folic acid 1 mg Tablet 1 mg PO QAM Qty: 30 RF: 0 thiamine HCl (vitamin B1) [Vitamin B-1] 100 mg Tablet 100 mg PO QAM Qty: 30 RF: 0 Continued montelukast [Singulair] 10 mg tablet 10 mg PO HS Qty: 30 RF: 5 ascorbic acid (vitamin C) [Vitamin C] 1,000 mg Tablet 1,000 mg PO QAM RF: 0 cetirizine [Zyrtec] 10 mg Tablet 10 mg PO HS PRN (Reason: Allergy Symptoms) RF: 0 Linzess 145 mcg capsule 145 mcg PO DAILYBB RF: 0 cyanocobalamin (vitamin B-12) 100 mcg Tablet 100 mcg PO QAM RF: 0 venlafaxine 150 mg capsule,extended release 24hr 150 mg PO QAM RF: 0 calcium carbonate [Calcium 500] 500 mg calcium (1,250 mg) Tablet 500 mg PO QAM RF: 0 polyethylene glycol 3350 [Miralax] 17 gram/dose Powder 17 g PO DAILY PRN (Reason: Constipation) RF: 0 albuterol sulfate 90 mcg/actuation Hfa Aerosol Inhaler 2 puff INHALATION Q4H PRN (Reason: Shortness Of Breath) RF: 0 fluticasone propionate [Flonase Allergy Relief] 50 mcg/actuation Amery,Suspension 2 spray INTRANASAL HS RF: 0 rosuvastatin [Crestor] 20 mg Tablet 20 mg PO HS RF: 0 sennosides 17.2 mg Tablet 17.2 mg PO DAILY PRN (Reason: Constipation) RF: 0 docusate sodium [Colace] 100 mg capsule 100 mg PO DAILY RF: 0 levetiracetam 750 mg tablet 750 mg PO BID RF: 0 acetaminophen [Tylenol] 325 mg Tablet 325 - 650 mg PO QID PRN (Reason: Fever Or Pain) RF: 0 lorazepam 0.5 mg tablet 0.25 mg PO BID PRN (Reason: Anxiety) RF: 0 pantoprazole [Protonix] 40 mg tablet,delayed release (DR/EC) 40 mg PO DAILYBB RF: 0 fluticasone propion-salmeterol [Advair Diskus] 500-50 mcg/dose Blister With Device 1 inh INHALATION BID RF: 0 Spiriva with HandiHaler 18 mcg Capsule, W/Inhalation Device 1 cap INHALATION BID RF: 0 venlafaxine 37.5 mg capsule,extended release 24hr 37.5 mg PO QAM RF: 0 azithromycin 250 mg tablet 250 mg PO 3XWK RF: 0 mirtazapine 30 mg tablet 30 mg PO HS RF: 0 gabapentin 100 mg capsule 100 mg PO TID RF: 0 olanzapine 2.5 mg tablet 1.25 mg PO BID RF: 0 Discharge Orders: Discharge Order (Routine); Ordered 12/01/20 Ordered By: Skyler Arrington Admission Data Admit Date/Time: 11/28/20 12:30 Attending Provider: Skyler Arrington Admit Provider: Skyler Arrington Primary Care Provider: Deric Leslie Other Providers: Skyler Arrington ; Eric Farley Other Interventions: Discharge Summary Assessment (RN) Last Done: 12/01/20 12:53
--- NOTE | 2020-12-01 13:23 | Cardiology Progress Note ---
Date of Service December 01, 2020 Assessment & Plan (1) Sick sinus syndrome: Stable forPatient is a complex 75-year-old female with medical issues as well outlined including significant underlying chronic obstructive lung disease, past seizure disorder, Covid pneumonia in July 2020. Patient's had recent difficulties with syncope and near syncope with Zio patch event monitor demonstrating significant pauses to greater than 10 seconds in duration Plan: Patient underwent dual-chamber pacemaker insertion successfully. Discharged today with plan to follow-up with PCP on 12/07/2020, [facility] pacer clinic on 12/10/2020 Resume propanolol 20 mg 3 times per day (2) Syncope: (3) Bronchiolitis obliterans: (4) Seizure disorder: (5) Primary basaloid squamous cell carcinoma of lung: Admission and Anticipated Discharge Date Admission Date: November 28, 2020 Subjective Patient seen and examined, chart, medications, telemetry reviewed. Patient underwent successful dual-chamber pacemaker insertion last evening. Tolerated procedure well. Device functioning appropriate this morning. Surgical incision site healing well Review of Systems Review of Systems: All systems reviewed & are unremarkable except as noted in HPI & below Physical Exam Constitutional: + thin; no acute distress Eyes: PERRL, conjunctivae normal, anicteric sclerae ENMT: external ear and nose normal, oropharynx normal Neck: trachea midline, no thyromegaly Respiratory: Auscultation: + bronchovesicular breath sounds Cardiovascular: Rate/Rhythm: regular rate and regular rhythm Heart Sounds: normal S1 and normal S2; no murmur Vessels: no JVD Extremities: no edema Chest (Breasts): Chest: + pacemaker (Site without hematoma or irritation) Gastrointestinal (Abdomen): normal bowel sounds, soft, nontender, no hepatosplenomegaly Musculoskeletal: no cyanosis or clubbing, extremities motor strength 5/5 Neurologic: Motor/Sensory: + tremor Results & Data ([facility]) Vital Signs (Past 12 Hours) Vital Signs Temp Pulse Pulse Resp BP BP Pulse Ox 12/01/20 12:53 36.6 C 83 18 172/75 H 138/75 91 12/01/20 12:07 36.6 C 83 18 138/75 91 12/01/20 08:13 36.6 C 91 H 18 135/88 98 12/01/20 08:00 92 H 12/01/20 07:12 97 H 18 95 12/01/20 03:00 37.1 C 99 H 18 113/80 91 Laboratory Results Laboratory Results - last 24 hr 12/01/20 12/01/20 07:44 07:44 WBC 6.83 RBC 3.82 L Hgb 11.2 L Hct 35.3 L MCV 92.4 MCH 29.3 MCHC 31.7 L RDW Std Deviation 45.4 RDW Coeff of Yamini 13.4 Plt Count 204 MPV 8.4 Immature Gran % (Auto) 0.1 Neut % (Auto) 76.2 Lymph % (Auto) 12.7 [place] % (Auto) 9.2 Eos % (Auto) 1.5 Baso % (Auto) 0.3 Neut # (Auto) 5.20 Lymph # (Auto) 0.87 L [place] # (Auto) 0.63 H Eos # (Auto) 0.10 Baso # (Auto) 0.02 Immature Gran # (Auto) 0.01 Sodium 139 Potassium 4.1 Chloride 105 Carbon Dioxide 31 Anion Gap 3.0 BUN 14 Creatinine 0.96 Est Cr Clr Drug Dosing 34.5 Est GFR ( Amer) 67.1 Est GFR (Non-Af Amer) 57.9 BUN/Creatinine Ratio 14.9 Glucose 105 H Calcium 8.9 Magnesium 1.9 (1) Syncope Syncope type: unspecified Qualified Code(s): R55 - Syncope and collapse
[2020-12-01] MEDS: LORazepam 0.5 MG TAB PO PRN (13:58)
--- NOTE | 2020-12-02 05:47 | Electrocardiogram Report ---
Test Reason : Blood Pressure : / mmHG Vent. Rate : 094 BPM Atrial Rate : 094 BPM P-R Int : 160 ms QRS Dur : 086 ms QT Int : 362 ms P-R-T Axes : 066 048 079 degrees QTc Int : 452 ms Normal sinus rhythm Normal ECG When compared with ECG of 30-NOV-2020 05:43, No significant change was found Confirmed by Jun Maxwell ([id number] on 12/02/2020 5:47:04 AM Referred By: [facility] Confirmed By:Jun Maxwell
== END 2020-12-01 15:36 | disposition home or self-care (01) | DRG 243 ==
LOC: ED 11:58 → 2S 12:30